=== PATIENT | female | born 1950 | race Caucasian/White ===

== ENCOUNTER 2016-08-29 19:52 | Inpatient (IN) ==
[2016-08-29] MEDS ORDERED: 0.9 % Sodium Chloride 250 ML IV PRN (21:39)
[2016-08-29] MEDS ORDERED: 0.9 % Sodium Chloride 1,000 ML PRIME SCH (21:45)
[2016-08-29] MEDS ORDERED: 0.9 % Sodium Chloride 2,000 ML ONE (22:36)
[2016-08-29 23:23] LABS: Hepatitis B Surface Antigen Nonreactive (Nonreactive)
[2016-08-29 23:25] LABS: Hepatitis B Surface Antibody 23.42 mIU/mL
[2016-08-30] MEDS ORDERED: cloNIDine HCl 0.1 MG TABLET PO PRN (01:11)
[2016-08-30] MEDS ORDERED: Budesonide/Formoterol 160/4.5 MDI IH PRN (01:11)
[2016-08-30] MEDS ORDERED: Naloxone 0.4 MG/ML INJ IVP PRN (01:24)
[2016-08-30] MEDS ORDERED: Haloperidol Lactate 5 MG/ML VIAL IVP PRN (01:24)
[2016-08-30] MEDS ORDERED: Albuterol 2.5 MG/3 ML NEBULIZER IH PRN (01:24)
--- NOTE | 2016-08-30 01:37 | Internal Med History&Physical ---
Date of Encounter: 08/30/16 Time of Encounter: 02:00 Assessment and Plan (1) Hyperkalemia, diminished renal excretion Status: Acute . (2) Hallucinations, unspecified Status: Acute . (3) Intractable nausea and vomiting Status: Acute . Qualifiers: Vomiting type: cyclical vomiting Qualified Code(s): G43.A1 - Cyclical vomiting, intractable (4) H/O noncompliance with medical treatment, presenting hazards to health Status: Acute . (5) Accelerated hypertension Status: Acute . (6) Altered mental status Status: Acute . Qualifiers: Altered mental status type: transient alteration of awareness Qualified Code(s): R40.4 - Transient alteration of awareness (7) CAD (coronary artery disease) Status: Chronic . Qualifiers: Coronary Disease-Associated Artery/Lesion type: bypass graft [place] vs. transplanted heart: [place] heart Associated angina: with unspecified angina Qualified Code(s): I25.709 - Atherosclerosis of coronary artery bypass graft(s) , unspecified, with unspecified angina pectoris (8) CHF (congestive heart failure) Status: Chronic . Qualifiers: Congestive heart failure type: unspecified congestive heart failure type Congestive heart failure chronicity: unspecified congestive heart failure chronicity Qualified Code(s): I50.9 - Heart failure, unspecified (9) COPD (chronic obstructive pulmonary disease) Status: Chronic . Qualifiers: COPD type: emphysema Emphysema type: unspecified Qualified Code(s): J43.9 - Emphysema, unspecified (10) Depression with anxiety Status: Chronic . (11) Hypertension Status: Chronic . Qualifiers: Hypertension type: essential hypertension Qualified Code(s): I10 - Essential (primary) hypertension (12) Hypothyroidism Status: Chronic . Qualifiers: Hypothyroidism type: unspecified Qualified Code(s): E03.9 - Hypothyroidism , unspecified (13) Acute exacerbation of chronic obstructive pulmonary disease (COPD) Status: Acute . (14) Acute on chronic respiratory failure with hypoxia Status: Acute . (15) Age-related physical debility Status: Chronic . (16) Delirium due to general medical condition Status: Acute . (17) HCAP (healthcare-associated pneumonia) Status: Acute . (18) Sepsis Status: Acute . Qualifiers: Sepsis type: sepsis due to unspecified organism Qualified Code(s): A41.9 - Sepsis, unspecified organism (19) Systemic inflammatory response syndrome Status: Acute . (20) Thrombocytopenia Status: Acute . (21) Toxic metabolic encephalopathy Status: Acute . (22) Anemia in chronic kidney disease Status: Chronic . (23) ESRD (end stage renal disease) on dialysis Status: Chronic . (24) Nicotine dependence with nicotine-induced disorder Status: Chronic . Qualifiers: Nicotine product type: cigarettes Qualified Code(s): F17.219 - Nicotine dependence, cigarettes, with unspecified nicotine-induced disorders (25) Obesity (BMI 30.0-34.9) Status: Chronic . (26) Protein-calorie malnutrition, severe Status: Chronic . Internal Medicine - H&P: HPI Chief complaint: Altered mental status Admitted From: Hospital to Hospital Transfer (He will transfer from [facility] emergency department) Plans for Post Hospital Care: Home History of present illness: Ms. Orellana is a 66 year old female with significant history for end-stage renal disease hemodialysis dependent (Monday), CAD/three-vessel CABG/ AMI, CHF unspecified, COPD/asthma, PAD/aortic aneurysm, chronic respiratory failure home oxygen dependent, hypertension, dyslipidemia, osteoarthritis, osteoporosis, GERD, hypothyroidism, venostasis, depression and anxiety, obesity , nicotine dependency. The patient was visited and interviewed and examined. Patient presented mildly encephalopathic at the time of her presentation and was a unreliable historian of circumstances of the events. Details were discussed collected EMS triage information and family. Patient is admitted to [facility] as a hospital transfer from [facility] ED. with complaints of intractable nausea vomiting and diarrhea. This is complicated with feeling of generalized weakness and malaise which curtailed her ability to complete her normal activities of daily living independently. Pruritus symptoms were worse on the day of prior to presentation. As a consequence she did not attend her last two scheduled dialysis days. Initiated by family to have presented an alteration in her mental status with some reported hallucinations in the home setting. This led family members to call EMS services to transfer her to the emergency department for evaluation. She reported that primarily generalized pain and episodes of intermittent chest pain. These have been experience over a 3 to four-day period of time. She has not noted any fevers chills sweats. Has not noted a cough of airway shortness of air or sputum production. She denied any abdominal pain nausea vomiting diarrhea. Denies any bleeding and hemoptysis hematemesis melena bright red blood per rectum hematuria. Still makes a small amount of urine eyes any abnormalities there. Denies any peripheral edema paresthesias weakness or increased swelling. Denies headache visual disturbances or impairment of swallowing. The visual hallucination was that of a " large bunny rabbit". She described it as attempting to eat her pulse ox devise from the EMS staff while they were transporting her to the ED. Denied similar visions while in the ED. Findings in the ED: Temperature 97.9 pulse 69 respirations 18-20 blood pressure 186-193/78-100 O2 saturation 95-99% room air. WBC 10.2 hemoglobin 11.8 platelets 103,000. MCV 103. Differential shows an increase in neutrophils. PT 12.5 INR 1.2 PTT 35.5. Metabolic panel showed a potassium 7.1. BUN 42 creatinine 7.64 GFR 5. Glucose 125 osmolality 304. Hepatic function normal. Albumin 3.3 total 7.2. Troponin 0.03. CT of the head without contrast showed no acute intracranial abnormality. Chest x-ray demonstrated no acute or active cardiopulmonary process. Cardiomegaly with mild interstitial edema pattern with left basilar airspace disease and small left effusion noted. EKG noted sinus rhythm 69 bpm with no acute ischemic changes nonspecific ST wave changes. Preliminary impressions suggest acute /chronic toxic metabolic encephalopathy with delirium as a consequence of patient noncompliance with scheduled hemodialysis. Presence of Significant Azotemia/Uremia As Well As Potential for Adverse Drug Drug Metabolite Interactions during this period off dialysis contributes to the toxic metabolic status patient experienced. Associated Symptoms of acute gastroenteritis contributed to the significant dehydration and electrolyte deficits. Systemic inflammatory response syndrome criteria and sepsis criteria present at admission. Examination and radiographic findings suggestive of acute exacerbation of chronic obstructive pulmonary disease with healthcare associated pneumonic infiltrate/pneumonia/parapneumonic effusion. The patient presents further risk for further acute clinical decline and morbidity given her significant associated comorbidities in the setting of significant acute illness. Workup and treatment will proceed comprehensively. Cumulative laboratory and radiographic data base was reviewed, considered and discussed. Pertinent ancillary medical records including ECW and PCI documentation was reviewed and considered. Given the patient's presenting concerns, past medical history, clinical findings and symptoms, she is admitted at this time will undergo further evaluation and disposition. Orders were written as per the computerized physician order picker/assembler system.......................................................................... .................... Consultative opinions will be sought as clinical circumstances justify. Initial consultation has been requested of dialysis services/nephrology Pain management needs will be addressed. Laboratory and radiographic data base will be updated as appropriate. Studies include: cultures blood and urine and sputum, c diff toxin, prolactin, CPK, cardiac injury panel, BNP, PT/INR, APTT, metabolic and hematologic panel, magnesium, phosphorus, ionized calcium, thyroid panel, lipid profile, A1c, C- peptide, CRP, sedimentation rate, respiratory infection profile, respiratory virus panel, UDS UA, Legionella and Streptococcal pneumoniae urine antigen, ammonia, blood gas, lactic acid, serologies, etc. Precautions: Aspiration, fall, seizure, delirium protocol/surveillance initiated. Telemetry with continuous hemodynamic monitoring and pulse oximetry initiated. Urgent intervention: Hemo-Dialysis Urgent intervention:IV D50+ivreg Insuin. iv bicarbonate drip. iv calcium gluconate. kayexalate+lactulose. Empiric antibiotic coverage: Intravenous vancomycin, Zosyn and Levaquin pending culture data. Special studies: CT head, CT Chest, chest x-ray, telemetry, EKG. Pulmonary toilet: Incentive spirometry, aerosol bronchodilator, mucolytic, antitussive, supplemental oxygen. Corticosteroid therapy. CPAP/BiPAP supplemental oxygen delivery. Aerosol Mucomyst therapy may be employed. Fluid and electrolyte repletion efforts will proceed. Careful attention to fluid balance and renal recovery will be emphasized. Avoidance of nephrotoxic exposure and adverse drug drug interaction in the setting of impaired renal function will be monitored closely. Correction of metabolic and acid base deficits will be emphasized Acute coronary syndrome protocol/surveillance initiated. DVT and PUD prophylaxis initiated: PPI therapy, intermittent pneumatic cuffs/ TEDs. SQ heparin. Early ambulation will be encouraged. Immunization updates recommended. Influenza and pneumococcal vaccinations as part of ongoing preventative healthcare recommendations strongly recommended. Smoking cessation counseling briefly addressed. Patient accepts nicotine substitution with this admission.. Advanced care directive discussion briefly addressed. Patient does not declare any healthcare restrictions at this time. Cardiovascular risk appraisal and cardiovascular risk reduction efforts will be emphasized. Physical and occupational therapy may be consulted to assess patient's functional capacity and progress mobility if circumstances warrant. Outpatient medication schedules will be reviewed, confirmed and facilitated as appropriate. Reconciliation of home treatments including adjustments, substitutions and reintroduction into the treatment regimen will address necessary maintenance therapies for chronic pre-existing medical conditions. Plan of care has been reviewed and discussed in detail with the patient. Questions addressed. Hospital course will depend upon clinical findings, treatment response and potential consultative interventions. Patient is at risk for further acute clinical decline and morbidity due to the presenting chief complaints, findings and comorbid conditions. Condition is serious. Prognosis is cautiously optimistic. CODE STATUS is full. Past Med Surg Social Fam HX - Past Medical History Source: old records reviewed Medical history: aortic aneurysm, arthritis, asthma, CHF, COPD, coronary artery disease, dialysis, GERD, hyperlipidemia, hypertension, myocardial infarction, osteoporosis, peripheral artery disease, renal disease, thyroid disease, venous stasis, other Psychiatric history: anxiety, depression - Past Surgical History Surgical History: coronary bypass (CABG), other, vascular surgery (Vascular left arm. Renal stents.) - Social History Smoking Status: Current every day smoker Packs per day: 0.5-1 pack a day Smokeless Tobacco Status: No Alcohol use: none Drug use: none Occupational status: retired, disabled Current living situation: With Family Activity Level: Independent ambulation, Mostly sedentary Recent Out of Country Travel Within the Last 8 Weeks: No Exposure or Possible Exposure to Illness During Travel: No - Family History Brother Family Member Ethnicity: Unknown Hx Family Cardiac Disorders: Yes (one brother passed sudden heart attack) Mother Living Status: Hx Family Cancer: Yes (lung cancer) Father Living Status: Hx Family Cancer: Yes (lung cancer) Internal Medicine - H&P: Meds Albuterol Sulfate [Albuterol Inhaler] 2 puff IH Q4H PRN 06/02/15 [History] Atorvastatin [Lipitor] 40 mg PO DAILY 06/02/15 [History] Citalopram Hydrobromide [Citalopram HBr] 20 mg PO QAM 06/02/15 [History] Levothyroxine [Synthroid] 200 mcg PO QAM 06/02/15 [History] Losartan Potassium 50 mg PO QAM 06/02/15 [History] Metoprolol Tartrate 25 mg PO BID 06/02/15 [History] Omeprazole 40 mg PO QAM 06/02/15 [History] Oxycodone HCl 10 mg PO Q6H PRN 06/02/15 [History] Aspirin 81 mg PO DAILY 09/22/15 [History] Docusate [Colace] 100 mg PO BID PRN 09/22/15 [History] B Complex with Vitamin C [[place]ee with C] 1 each PO DAILY 02/22/16 [History] Budesonide/Formoterol 160/4.5 [Symbicort 160/4.5] 1 puff IH QID PRN 08/29/16 [ History] CloNIDine HCl 0.1 mg PO DAILY PRN 08/29/16 [History] Sevelamer [Renvela] 800 mg PO TIDWM 08/29/16 [History] Nicotine Patch [Nicoderm] 21 mg TD DAILY patch.td24 08/31/16 [Rx] Allergies No Known Allergies Allergy (Verified 08/30/16 14:33) ROS unobtainable: due to mental status All Systems PM: A 10-system review of systems was performed and is negative for pertinent findings except as documented above in the HPI. Encephalopathic. Delirious. Unreliable historian of circumstances and events. - Constitutional Constitutional: as per HPI - EENT Eyes: as per HPI Ears: as per HPI Nose, mouth and throat: as per HPI - Cardiovascular Cardiovascular ROS IM: as per HPI - Respiratory Respiratory: as per HPI - Gastrointestinal Gastrointestinal: as per HPI - Genitourinary Genitourinary: as per HPI Menstruation: as per HPI - Musculoskeletal Musculoskeletal ROS IM: as per HPI - Integumentary Integumentary IM: as per HPI - Neurological Neurological ROS: as per HPI - Psychiatric Psychiatric: as per HPI - Endocrine Endocrine IM: as per HPI - Hematologic/Lymphatic Hematologic/Lymphatic: as per HPI - Allergic/Immunologic Allergic/Immunologic: as per HPI - Constitutional Vitals: Temp Pulse Resp BP Pulse Ox 99.4 F 87 18 178/75 97 08/30/16 01:14 08/30/16 01:14 08/30/16 01:14 08/30/16 01:14 08/30/16 01:14 General appearance: Present: A&O X 2, mild distress, obese. Absent: answers questions appropriately - Head Head exam: Present: atraumatic, normocephalic - Eye Eye exam: Present: EOMI, PERRL, conjuntiva pink, sclera anicteric Pupils: Present: normal accommodation, PERRL - ENT ENT exam: Present: mucous membranes dry, normal oropharynx - Neck Neck exam general surgery: Present: full ROM, supple, trachea midline. Absent: lymphadenopathy, tenderness, nuchal rigidity - Respiratory Respiratory exam: Present: chest wall tenderness, decreased breath sounds, rhonchi. Absent: accessory muscle use, rales, wheezes - Cardiovascular Cardiovascular exam: Present: distant heart sounds, RRR, +S1, +S2. Absent: diastolic murmur, gallop, rubs, systolic murmur - GI/Abdominal GI/Abdominal exam: Present: normal bowel sounds, soft, no peritoneal signs. Absent: distended, tenderness - Extremities Exam Extremities exam: Present: full ROM, warm, radial pulses palpable and symetrical. Absent: calf tenderness, cyanotic, pedal edema - Neurological Exam Neurological exam: Present: alert, altered, CN II-XII intact, oriented X3, no focal deficits. Absent: pronater drift, facial droop, speech deficit - Expanded Neurological Exam Neurological exam expanded: Present: ataxia, inattentive, protecting the airway. Absent: expressive aphasia, receptive aphasia Patient oriented to: Present: person, place. Absent: time Speech: Present: garbled Coma Scale Eye Opening: To Voice Coma Scale Motor Response: Localizes to Pain Coma Scale Verbal Response: Inappropriate Coma Scale Total: 11 - Psychiatric Psychiatric exam: Present: flat affect - Skin Skin exam: Present: dry, intact, warm. Absent: petechiae, rash, urticaria, vesicles Internal Med - H&P Results - Labs CBC & Chem 7: 08/31/16 05:27 08/31/16 05:27 - Impressions Vital Signs Temp Pulse Resp BP Pulse Ox 08/30/16 01:14 99.4 F 87 18 178/75 97 08/30/16 00:05 97.7 F 18 142/79 08/29/16 23:50 137/77 08/29/16 23:35 143/83 08/29/16 23:20 150/64 08/29/16 23:05 148/78 08/29/16 22:50 159/85 08/29/16 22:35 163/82 08/29/16 22:20 166/91 08/29/16 22:05 97.7 F 18 177/81 08/29/16 21:21 97.7 F 90 18 184/71 98 Intake and Output 08/29/16 08/29/16 08/30/16 15:59 23:59 07:59 Intake Total 600 / 600 Output Total 2600 / 2600 Balance 600 / 600 -2600 / -2600 Intake: Oral 0 / 0 Intake, Rinseback and 600 / 600 Flushes Output: Total Dialysis Output 2600 / 2600 Other: Weight 76.6 kg Hemodialysis Net Fluid 2284 2600 Removed (mL) Allergies Allergy/AdvReac Type Severity Reaction Status Date / Time No Known Allergies Allergy Verified 04/07/15 14:11 Abnormal lab results RBC 3.30 M/mcL (3.82-4.97) L 08/31/16 05:27 Hgb 10.2 g/dL (11.5-15.4) L 08/31/16 05:27 Hct 32.9 % (35.3-44.9) L 08/31/16 05:27 MCHC 31.0 g/dL (31.6-35.5) L 08/31/16 05:27 Plt Count 108 K/mcL (140-400) L 08/31/16 05:27 MPV 9.2 fL (9.4-12.4) L 08/31/16 05:27 VBG pCO2 55 mmHg (41-51) H 08/30/16 05:10 VBG pO2 53 mmHg (25-40) H 08/30/16 05:10 VBG HCO3 35.7 mEq/L (21-27) H 08/30/16 05:10 BUN 38 mg/dL (7-20) H D 08/31/16 05:27 Creatinine 6.30 mg/dL (0.57-1.11) H 08/31/16 05:27 Est GFR ( Amer) 8 (> 60) L 08/31/16 05:27 Est GFR (Non-Af Amer) 7 (> 60) L 08/31/16 05:27 Glucose 102 mg/dL (70-99) H 08/31/16 05:27 Calculated Osmolality 303 (280-300) H 08/31/16 05:27 Ionized Calcium 1.11 mmol/L (1.15-1.35) L 08/30/16 05:10 Magnesium 1.5 mg/dL (1.6-2.6) L 08/30/16 05:10 Troponin I 0.08 ng/mL (0-0.03) H* 08/31/16 05:27 C-Reactive Protein 66 mg/L (Less than 5) H 08/30/16 05:10 Serum Total Protein 5.9 g/dL (6.0-8.3) L 08/31/16 05:27 Albumin 2.6 g/dL (3.5-5.0) L 08/31/16 05:27 Albumin/Globulin Ratio 0.8 (1.1-2.2) L 08/31/16 05:27 TSH 0.080 mcIU/mL (0.350-4.840) L 08/30/16 05:10 Urine pH 8.5 pH Units (5.0-8.0) H 08/30/16 21:40 Urine Protein 100 mg/dL (Neg-Trace) H 08/30/16 21:40 Urine Blood Moderate (Negative) H 08/30/16 21:40 Urine Microscopic RBC 30-50 per hpf (0-3) H 08/30/16 21:40 Urine Microscopic WBC 5-15 per hpf (0-3) H 08/30/16 21:40 Ur Squamous Epith Cells Many per lpf (None-Few) H 08/30/16 21:40 Ur Culture Indicated? YES (NO) A 08/30/16 21:40 Laboratory Results WBC 7.7 K/mcL (4.3-11.1) 08/31/16 05:27 RBC 3.30 M/mcL (3.82-4.97) L 08/31/16 05:27 Hgb 10.2 g/dL (11.5-15.4) L 08/31/16 05:27 Hct 32.9 % (35.3-44.9) L 08/31/16 05:27 MCV 99.7 fL (83.0-100.0) 08/31/16 05:27 MCH 30.9 pg (28.0-33.3) 08/31/16 05:27 MCHC 31.0 g/dL (31.6-35.5) L 08/31/16 05:27 RDW 13.6 % (11.5-14.5) 08/31/16 05:27 Plt Count 108 K/mcL (140-400) L 08/31/16 05:27 MPV 9.2 fL (9.4-12.4) L 08/31/16 05:27 Immature Gran % 0.5 % (0-4) 08/31/16 05:27 Seg Neutrophils % 77.7 % 08/31/16 05:27 Lymphocytes % 12.7 % 08/31/16 05:27 Monocytes % 8.2 % 08/31/16 05:27 Eosinophils % 0.8 % 08/31/16 05:27 Basophils % 0.1 % 08/31/16 05:27 Neutrophils # 6.0 K/mcL (1.6-8.9) 08/31/16 05:27 Lymphocytes # 1.0 K/mcL (0.6-4.6) 08/31/16 05:27 Monocytes # 0.6 K/mcL (0.0-1.3) 08/31/16 05:27 Eosinophils # 0.1 K/mcL (0.0-0.6) 08/31/16 05:27 Basophils # 0.0 K/mcL (0.0-0.2) 08/31/16 05:27 Immature Plt Fraction 1.7 % (1.1-6.1) 08/31/16 05:27 VBG pH 7.42 pH Units (7.32-7.42) 08/30/16 05:10 VBG pCO2 55 mmHg (41-51) H 08/30/16 05:10 VBG pO2 53 mmHg (25-40) H 08/30/16 05:10 VBG HCO3 35.7 mEq/L (21-27) H 08/30/16 05:10 Sodium 142 mEq/L (136-145) 08/31/16 05:27 Potassium 4.1 mEq/L (3.5-4.5) 08/31/16 05:27 Chloride 99 mEq/L (98-109) 08/31/16 05:27 Carbon Dioxide 29 mEq/L (19-29) 08/31/16 05:27 BUN 38 mg/dL (7-20) H D 08/31/16 05:27 Creatinine 6.30 mg/dL (0.57-1.11) H 08/31/16 05:27 Est GFR ( Amer) 8 (> 60) L 08/31/16 05:27 Est GFR (Non-Af Amer) 7 (> 60) L 08/31/16 05:27 BUN/Creatinine Ratio 6 (6-26) 08/31/16 05:27 Glucose 102 mg/dL (70-99) H 08/31/16 05:27 Calculated Osmolality 303 (280-300) H 08/31/16 05:27 Calcium 9.1 mg/dL (8.6-10.8) 08/31/16 05:27 Ionized Calcium 1.11 mmol/L (1.15-1.35) L 08/30/16 05:10 Magnesium 1.5 mg/dL (1.6-2.6) L 08/30/16 05:10 Total Bilirubin 0.7 mg/dL (0.2-1.2) 08/31/16 05:27 AST 16 Units/L (5-34) 08/31/16 05:27 ALT < 6 Units/L (0-55) 08/31/16 05:27 Alkaline Phosphatase 70 Units/L (38-126) 08/31/16 05:27 Ammonia 18 mcmol/L (18-72) 08/30/16 05:10 Troponin I 0.08 ng/mL (0-0.03) H* 08/31/16 05:27 C-Reactive Protein 66 mg/L (Less than 5) H 08/30/16 05:10 Serum Total Protein 5.9 g/dL (6.0-8.3) L 08/31/16 05:27 Albumin 2.6 g/dL (3.5-5.0) L 08/31/16 05:27 Globulin 3.3 g/dL (2.4-3.5) 08/31/16 05:27 Albumin/Globulin Ratio 0.8 (1.1-2.2) L 08/31/16 05:27 TSH 0.080 mcIU/mL (0.350-4.840) L 08/30/16 05:10 Urine Color Yellow (Yellow) 08/30/16 21:40 Urine Clarity Clear (Clear) 08/30/16 21:40 Urine pH 8.5 pH Units (5.0-8.0) H 08/30/16 21:40 Ur Specific [place] 1.020 (1.010-1.025) 08/30/16 21:40 Urine Protein 100 mg/dL (Neg-Trace) H 08/30/16 21:40 Urine Glucose (UA) Normal mg/dL (Normal) 08/30/16 21:40 Urine Ketones Negative mg/dL (Negative) 08/30/16 21:40 Urine Blood Moderate (Negative) H 08/30/16 21:40 Urine Nitrite Negative (Negative) 08/30/16 21:40 Urine Bilirubin Negative (Negative) 08/30/16 21:40 Urine Urobilinogen Normal mg/dL (Normal) 08/30/16 21:40 Ur Leukocyte Esterase Negative (Negative) 08/30/16 21:40 Urine Microscopic RBC 30-50 per hpf (0-3) H 08/30/16 21:40 Urine Microscopic WBC 5-15 per hpf (0-3) H 08/30/16 21:40 Ur Squamous Epith Cells Many per lpf (None-Few) H 08/30/16 21:40 Urine Bacteria Few per hpf (None-Few) 08/30/16 21:40 Hyaline Casts None Seen per lpf (None-Few) 08/30/16 21:40 Ur Culture Indicated? YES (NO) A 08/30/16 21:40 Ethyl Alcohol < 10 mg/dL (0-10) 08/30/16 05:10 Hep Bs Antigen Nonreactive (Nonreactive) 08/29/16 22:15 Hep Bs Antibody 23.42 mIU/mL 08/29/16 22:15
[2016-08-30] MEDS ORDERED: Acetaminophen 325 MG TABLET PO PRN (02:10)
[2016-08-30] MEDS ORDERED: *HR* OxyCODONE Immed Rel 5 MG TABLET PO PRN (02:10)
[2016-08-30] MEDS ORDERED: *HR* Morphine 2 MG/ML SYRINGE IVP PRN (02:10)
[2016-08-30] MEDS ORDERED: Ondansetron 4 MG/2 ML VIAL IVP PRN (02:10)
[2016-08-30] MEDS: *HR* LORazepam 2 MG/ML VIAL IVP SCH ×3 (03:02→12:29)
[2016-08-30] MEDS: Ipratropium/Albuterol Neb 3 ML IH SCH ×2 (04:27→10:15)
[2016-08-30 05:20] LABS: Basophils % 0.1 %; Hematocrit 33.7 % (35.3-44.9); Hemoglobin 10.7 g/dL (11.5-15.4); Lymphocytes # 0.5 K/mcL (0.6-4.6); Mean Corpuscular HGB Conc 31.8 g/dL (31.6-35.5); Mean Corpuscular Hemoglobin 31.3 pg (28.0-33.3); Mean Corpuscular Volume 98.5 fL (83.0-100.0); Mean Platelet Volume 9.2 fL (9.4-12.4); Monocytes # 0.5 K/mcL (0.0-1.3); Monocytes % 5.4 %; Neutrophils # 8.5 K/mcL (1.6-8.9); Red Blood Count 3.42 M/mcL (3.82-4.97); Red Cell Distribution Width 13.8 % (11.5-14.5); Segmented Neutrophils % 88.5 %; VBG HCO3 35.7 mEq/L (21-27); VBG PH 7.42 pH Units (7.32-7.42)
[2016-08-30 05:21] LABS: Platelet Count 94 K/mcL (140-400)
[2016-08-30 05:27] LABS: Ionized Calcium 1.11 mmol/L (1.15-1.35)
[2016-08-30 05:37] LABS: Alanine Aminotransferase < 6 Units/L (0-55); Albumin 3.1 g/dL (3.5-5.0); Albumin/Globulin Ratio 0.9 (1.1-2.2); Alkaline Phosphatase 82 Units/L (38-126); Aspartate Amino Transferase 13 Units/L (5-34); BUN/Creatinine Ratio 4 (6-26); Bilirubin,Total 0.7 mg/dL (0.2-1.2); Blood Urea Nitrogen 22 mg/dL (7-20); Calcium 9.5 mg/dL (8.6-10.8); Carbon Dioxide 31 mEq/L (19-29); Chloride 99 mEq/L (98-109); Ethanol < 10 mg/dL (0-10); Globulin 3.6 g/dL (2.4-3.5); Glucose 122 mg/dL (70-99); Magnesium 1.5 mg/dL (1.6-2.6); Osmolality,Calculated 299 (280-300); Potassium 3.7 mEq/L (3.5-4.5); Sodium 142 mEq/L (136-145); Total Protein 6.7 g/dL (6.0-8.3); eGFR For African Americans 10 (> 60); eGFR For Non-African Americans 9 (> 60)
[2016-08-30 05:44] LABS: C-Reactive Protein 66 mg/L (Less than 5)
[2016-08-30] MEDS: *HR* Heparin 5,000 UNIT/ML VIAL SQ SCH ×2 (06:42→17:16)
[2016-08-30] MEDS: Folic Acid 1 MG TABLET PO SCH (08:06)
[2016-08-30] MEDS: Thiamine (B-1) 100 MG TABLET PO SCH (08:07)
[2016-08-30] MEDS: Aspirin 81 MG TAB.CHEW PO SCH (08:07)
[2016-08-30] MEDS: Nicotine 21 MG PATCH.TD24 TD SCH (08:07)
[2016-08-30] MEDS: Vitamin B Complex/Vit C/Vit E 1 EACH TABLET PO SCH (08:22)
--- NOTE | 2016-08-30 08:22 | Nephrology Consult Note ---
Date of Encounter: 08/30/16 Time of Encounter: 08:20 Assessment and Plan (1) End stage renal disease Current Visit: No Status: Acute Patient has end-stage renal disease. She presented with hyperkalemia and poorly controlled blood pressure. Patient missed her last 2 dialysis sessions. Patient underwent urgent dialysis last night. Her hyperkalemia is improved. She has no signs of volume overload. Next dialysis will be tomorrow. Blood pressure remains elevated. We will make some adjustments in her antihypertensive medications. (2) Benign hypertensive kidney disease with end stage renal disease Current Visit: Yes Status: Acute (3) Nausea & vomiting Current Visit: Yes Status: Acute Qualifiers: Vomiting type: unspecified Vomiting Intractability: unspecified Qualified Code(s): R11.2 - Nausea with vomiting, unspecified (4) Hyperkalemia Current Visit: No Status: Acute History of Present Illness - History of Present Illness This is a 66-year-old female with end-stage renal disease who dialyzes every Monday. Patient reports that she had nausea and vomiting for several days and was not feeling well. She did not attend dialysis on Monday or again yesterday. She says she has been having a lot of nausea and vomiting and her blood pressures been elevated. She thinks she has not been able to keep down her blood pressure medications. Emergency room records indicate that the patient also was complaining of weakness as well as some hallucinations. Currently the patient is still complaining of nausea and some abdominal discomfort. Her blood pressure remains poorly controlled. Patient presented with potassium of 7.1 tympanic emergency room last evening. She was treated medically and also underwent urgent dialysis when she arrived at [place] last night. Potassium today is down to 3.7. She does not exhibit any signs of volume overload currently. Blood pressure is 190/84. Patient denies any worsening shortness of breath. She denies any chest pain. Past Med Surg Social Fam HX - Past Medical History Medical history: aortic aneurysm, arthritis, asthma, CHF, COPD, coronary artery disease, dialysis, GERD, hyperlipidemia, hypertension, myocardial infarction, osteoporosis, peripheral artery disease, renal disease, thyroid disease, venous stasis, other Psychiatric history: anxiety, depression - Past Surgical History Surgical History: coronary bypass (CABG), other - Social History Smoking Status: Current every day smoker Packs per day: 0.5-1 pack a day Smokeless Tobacco Status: No Alcohol use: none Drug use: none - Family History Brother Family Member Ethnicity: Unknown Hx Family Cardiac Disorders: Yes (one brother passed sudden heart attack) Mother Living Status: Hx Family Cancer: Yes (lung cancer) Father Living Status: Hx Family Cancer: Yes (lung cancer) Medications and Allergies Albuterol Sulfate [Albuterol Inhaler] 2 puff IH Q4H PRN 06/02/15 [History] Atorvastatin [Lipitor] 40 mg PO DAILY 06/02/15 [History] Citalopram Hydrobromide [Citalopram HBr] 20 mg PO QAM 06/02/15 [History] Levothyroxine [Synthroid] 200 mcg PO QAM 06/02/15 [History] Losartan Potassium 50 mg PO QAM 06/02/15 [History] Metoprolol Tartrate 25 mg PO BID 06/02/15 [History] Omeprazole 40 mg PO QAM 06/02/15 [History] Oxycodone HCl 10 mg PO Q6H PRN 06/02/15 [History] Aspirin 81 mg PO DAILY 09/22/15 [History] Docusate [Colace] 100 mg PO BID PRN 09/22/15 [History] B Complex with Vitamin C [[place] with C] 1 each PO DAILY 02/22/16 [History] Budesonide/Formoterol 160/4.5 [Symbicort 160/4.5] 1 puff IH QID PRN 08/29/16 [ History] CloNIDine HCl 0.1 mg PO DAILY PRN 08/29/16 [History] Sevelamer [Renvela] 800 mg PO TIDWM 08/29/16 [History] Allergies No Known Allergies Allergy (Verified 04/07/15 14:11) Review of Systems Constitutional: as per HPI, weakness Nose, mouth and throat: no dizziness, no headache(s) Cardiovascular: as per HPI, dyspnea on exertion Respiratory: as per HPI, cough, dyspnea on exertion Gastrointestinal: abdominal pain, nausea, vomiting Musculoskeletal: no muscle weakness, no numbness Integumentary: no hirsutism, no striae Neurological: as per HPI, weakness Psychiatric: no depression, no difficulty concentrating Endocrine: as per HPI Hematologic/Lymphatic: no easy bruising, no lymphadenopathy Exam - Vital Signs Vital signs: Initial Vital Signs Temp Pulse Resp BP Pulse Ox 97.7 F 90 18 184/71 98 08/29/16 21:21 08/29/16 21:21 08/29/16 21:21 08/29/16 21:21 08/29/16 21:21 Vital Signs - Last 8 Hours Temp Pulse Resp BP Pulse Ox 08/30/16 07:45 99.3 F 90 17 190/84 94 L 08/30/16 05:37 98.4 F 83 16 185/78 93 L 08/30/16 04:28 16 91 L 08/30/16 02:45 96 08/30/16 01:14 99.4 F 87 18 178/75 97 Intake and Output 08/29/16 08/30/16 08/30/16 23:59 07:59 15:59 Intake Total 600 / 600 Output Total 2600 / 2600 Balance 600 / 600 -2600 / -2600 Intake: Oral 0 / 0 Intake, Rinseback and 600 / 600 Flushes Output: Total Dialysis Output 2600 / 2600 Other: Stool Size Moderate Stool Consistency liquid Stool Characteristics Foamy Stool Color Brown Weight 76.6 kg Hemodialysis Net Fluid 2284 2600 Removed (mL) - General Appearance Exam: Patient appears to be resting comfortably. She awakens easily and answers a few questions and then drifts back off to sleep. She is in no acute distress. Neck supple. Lungs sounds otherwise clear. Heart regular rhythm with a 2/6 soft ejection murmur. Abdomen shows normal bowel sounds. There is some diffuse tenderness is no guarding or rigidity. Lower extremities show no peripheral edema. There is a functioning AV fistula in the left upper extremity. Results - Lab Results 08/30/16 05:10 08/30/16 05:10 Most recent lab results Calcium 9.5 mg/dL (8.6-10.8) 08/30/16 05:10 Magnesium 1.5 mg/dL (1.6-2.6) L 08/30/16 05:10 Consult Discharge Plan - Plan Referrals: Yonatan Aleman DO [Primary Care Provider] -
[2016-08-30] MEDS: cloNIDine HCl 0.1 MG TABLET PO SCH ×2 (10:04→20:20)
[2016-08-30] MEDS ORDERED: Magnesium Oxide 400 MG TABLET PO ONE (12:51)
[2016-08-30] MEDS ORDERED: *HR* LORazepam 2 MG/ML VIAL IVP PRN (12:52)
--- NOTE | 2016-08-30 17:36 | Internal Med Progress Note ---
Date of Encounter: 08/30/16 Time of Encounter: 11:55 - Assessment and plan (1) Benign hypertensive kidney disease with end stage renal disease Current Visit: Yes Status: Acute Assessment and plan: Renal input appreciated, will follow recommendations (2) Altered mental status Current Visit: Yes Status: Acute Qualifiers: Altered mental status type: transient alteration of awareness Qualified Code(s): R40.4 - Transient alteration of awareness (3) Anemia in chronic kidney disease Current Visit: No Status: Chronic (4) CHF (congestive heart failure) Current Visit: Yes Status: Chronic Qualifiers: Congestive heart failure type: unspecified congestive heart failure type Congestive heart failure chronicity: unspecified congestive heart failure chronicity Qualified Code(s): I50.9 - Heart failure, unspecified (5) End stage renal disease Current Visit: Yes Status: Chronic (6) Hyperkalemia Current Visit: Yes Status: Acute Assessment and plan: Resolved s/p HD, improved (7) CAD (coronary artery disease) Current Visit: Yes Status: Chronic Qualifiers: Coronary Disease-Associated Artery/Lesion type: bypass graft [place] vs. transplanted heart: [place] heart Associated angina: with unspecified angina Qualified Code(s): I25.709 - Atherosclerosis of coronary artery bypass graft(s) , unspecified, with unspecified angina pectoris (8) COPD (chronic obstructive pulmonary disease) Current Visit: Yes Status: Chronic Qualifiers: COPD type: emphysema Emphysema type: unspecified Qualified Code(s): J43.9 - Emphysema, unspecified (9) Current smoker Current Visit: Yes Status: Chronic (10) Depression with anxiety Current Visit: Yes Status: Chronic (11) Hypertension Current Visit: Yes Status: Chronic Assessment and plan: Resume home meds Qualifiers: Hypertension type: essential hypertension Qualified Code(s): I10 - Essential (primary) hypertension (12) Hypothyroidism Current Visit: Yes Status: Chronic Assessment and plan: Uncontrolled, TSH is low, will continue home dose of synthroid Qualifiers: Hypothyroidism type: unspecified Qualified Code(s): E03.9 - Hypothyroidism , unspecified (13) Acute encephalopathy Current Visit: Yes Status: Acute Assessment and plan: Metabolic encephalopathy Fall precautions Monitor closely (14) Elevated troponin Current Visit: Yes Status: Acute Assessment and plan: No chest pain, EKG NSR Will trend Will obtain ECHO Will consult cardiology prn - Subjective Interval history: 66 Y/O F with ESRD on HD, CAD , CHF, Chornc respiratory failure on home oxygen, HTN, HLD Patient being managed for acute encephalopathy possibly from uremia and hyperkalemia after she[place] missed 2 HD sessions She is seen at bedside, sleeping deeply but rousable (per chart, she had received Ativan in the early hrs of the morning) She is oriented to place and person and able to speak full sentences but falls asleep intermittently She has received HD Of note, troponin continues to be elavted. Admitting EKG is without ischemic changes and Patient has no chest pain - Constitutional Vitals: Temp Pulse Resp BP Pulse Ox 98.7 F 84 18 142/74 94 L 08/30/16 15:45 08/30/16 15:45 08/30/16 15:45 08/30/16 15:45 08/30/16 15:45 General appearance: Present: A&O X 2, no acute distress - Head Head exam: Present: atraumatic, normocephalic - Eye Eye exam: Present: PERRL, conjuntiva pink, sclera anicteric Pupils: Present: PERRL - Neck Neck exam general surgery: Present: supple, trachea midline. Absent: lymphadenopathy - Cardiovascular Cardiovascular exam: Present: RRR, +S1, +S2. Absent: diastolic murmur, gallop, rubs, systolic murmur - GI/Abdominal GI/Abdominal exam: Present: normal bowel sounds, soft, no peritoneal signs. Absent: distended, tenderness - Extremities Exam Extremities exam: Present: warm, radial pulses palpable and symetrical. Absent : calf tenderness, cyanotic, pedal edema - Neurological Exam Neurological exam: Present: altered, no focal deficits. Absent: pronater drift , facial droop, speech deficit - Skin Skin exam: Present: dry Internal Medicine: Result - Labs CBC & Chem 7: 08/30/16 05:10 08/30/16 05:10 Labs: Short CBC 08/30/16 Range/Units 05:10 WBC 9.6 (4.3-11.1) K/mcL Hgb 10.7 L (11.5-15.4) g/dL Hct 33.7 L (35.3-44.9) % Plt Count 94 L (140-400) K/mcL Neutrophils # 8.5 (1.6-8.9) K/mcL BMP 08/30/16 05:10 Sodium 142 Potassium 3.7 D Chloride 99 Carbon Dioxide 31 H BUN 22 H D Creatinine 5.06 H Glucose 122 H Calcium 9.5 Cardiac Enzymes 08/30/16 08/30/16 08/30/16 Range/Units 05:10 11:04 16:40 Troponin I 0.07 H* 0.08 H* 0.12 H* (0-0.03) ng/mL Liver Function 08/30/16 Range/Units 05:10 Total Bilirubin 0.7 (0.2-1.2) mg/dL AST 13 (5-34) Units/L ALT < 6 (0-55) Units/L Alkaline Phosphatase 82 (38-126) Units/L Albumin 3.1 L (3.5-5.0) g/dL Consult Discharge Plan - Plan Referrals: Yonatan Aleman DO [Primary Care Provider] - 09/06/16 9:30 am ()
[2016-08-30] MEDS: *HR* OxyCODONE Immed Rel 5 MG TABLET PO PRN ×2 (20:21→23:54)
[2016-08-30 21:44] LABS: Bilirubin,Urine Negative (Negative); Blood,Urine Moderate (Negative); Clarity,Urine Clear (Clear); Color,Urine Yellow (Yellow); Glucose,Urine (UA) Normal (Normal); Ketones,Urine Negative (Negative); Leukocyte Esterase,Urine Negative (Negative); Nitrite,Urine Negative (Negative); PH,Urine 8.5 pH Units (5.0-8.0); Protein,Urine 100 mg/dL (Neg-Trace); Urobilinogen,Urine Normal (Normal)
[2016-08-30 21:46] LABS: Bacteria,Urine Few per hpf (None-Few); Hyaline Casts,Urine None Seen per lpf (None-Few); RBC,Urine 30-50 per hpf (0-3); Squamous Epithelial Cell,Urine Many per lpf (None-Few)
[2016-08-30] MEDS: Budesonide/Formoterol 160/4.5 MDI IH SCH (22:44)
[2016-08-31 05:41] LABS: Eosinophils % 0.8 %; Hemoglobin 10.2 g/dL (11.5-15.4); Red Cell Distribution Width 13.6 % (11.5-14.5)
[2016-08-31 05:43] LABS: Eosinophils # 0.1 K/mcL (0.0-0.6)
[2016-08-31 05:44] LABS: Basophils % 0.1 %; Hematocrit 32.9 % (35.3-44.9); Immature Granulocytes % 0.5 % (0-4); Immature Platelets 1.7 % (1.1-6.1); Lymphocytes % 12.7 %; Mean Corpuscular Hemoglobin 30.9 pg (28.0-33.3); Mean Corpuscular Volume 99.7 fL (83.0-100.0); Mean Platelet Volume 9.2 fL (9.4-12.4); Monocytes # 0.6 K/mcL (0.0-1.3); Monocytes % 8.2 %; Platelet Count 108 K/mcL (140-400); Segmented Neutrophils % 77.7 %
[2016-08-31 05:55] LABS: Albumin 2.6 g/dL (3.5-5.0); Albumin/Globulin Ratio 0.8 (1.1-2.2); Alkaline Phosphatase 70 Units/L (38-126); Aspartate Amino Transferase 16 Units/L (5-34); BUN/Creatinine Ratio 6 (6-26); Bilirubin,Total 0.7 mg/dL (0.2-1.2); Calcium 9.1 mg/dL (8.6-10.8); Carbon Dioxide 29 mEq/L (19-29); Chloride 99 mEq/L (98-109); Globulin 3.3 g/dL (2.4-3.5); Glucose 102 mg/dL (70-99); Osmolality,Calculated 303 (280-300); Potassium 4.1 mEq/L (3.5-4.5); Sodium 142 mEq/L (136-145); Total Protein 5.9 g/dL (6.0-8.3); eGFR For African Americans 8 (> 60); eGFR For Non-African Americans 7 (> 60)
[2016-08-31 06:00] LABS: Alanine Aminotransferase < 6 Units/L (0-55); Blood Urea Nitrogen 38 mg/dL (7-20)
[2016-08-31] MEDS ORDERED: 0.9 % Sodium Chloride 250 ML IV PRN (08:08)
--- NOTE | 2016-08-31 08:08 | Nephrology Progress Note ---
Date of Encounter: 08/31/16 Time of Encounter: 08:07 - Assessment and Plan (1) End stage renal disease Current Visit: No Status: Acute Patient will undergo usual dialysis today. Orders of been submitted. We will see how her blood pressure is following dialysis and then decide if we need to make any additional changes in her antihypertensive medications. (2) Benign hypertensive kidney disease with end stage renal disease Current Visit: Yes Status: Acute (3) Nausea & vomiting Current Visit: Yes Status: Acute Qualifiers: Vomiting type: unspecified Vomiting Intractability: unspecified Qualified Code(s): R11.2 - Nausea with vomiting, unspecified (4) Hyperkalemia Current Visit: Yes Status: Acute Subjective Interval history: Patient reports she is feeling better. She denies any nausea or vomiting. She also denies any shortness of breath. Potassium is 4.1. Blood pressure is ranging anywhere from 120-169 systolic 60-73 diastolic. She will undergo her usual dialysis today. Objective - Vital Signs Vital signs: Vital Signs Temp Pulse Resp BP Pulse Ox 08/31/16 07:55 98.4 F 67 16 143/65 98 08/31/16 03:41 97.4 F L 59 16 169/73 97 08/31/16 00:08 97.9 F 64 16 120/60 96 08/30/16 22:45 16 99 08/30/16 20:04 97.4 F L 72 16 162/78 94 L 08/30/16 15:45 98.7 F 84 18 142/74 94 L 08/30/16 11:39 99.7 F H 73 19 102/59 93 L 08/30/16 10:16 18 97 08/30/16 10:00 83 19 197/90 99 08/30/16 08:25 94 L Intake and Output 08/30/16 08/31/16 08/31/16 23:59 07:59 15:59 Intake Total 800 / 800 Output Total 300 / 300 0 / 0 Balance 500 / 500 0 / 0 Intake: Oral 800 / 800 Output: Urine 300 / 300 0 / 0 Other: Weight 71.6 kg Patient Weight 08/31/16 23:59 Weight 71.6 kg - General Appearance Exam: Patient is alert and oriented. She is in no acute distress. Lung sounds otherwise clear. Heart regular rate and rhythm. Abdomen is benign. There is no peripheral edema. There is a functioning fistula in the left arm. - Lab 08/31/16 05:27 08/31/16 05:27 Most recent lab results Calcium 9.1 mg/dL (8.6-10.8) 08/31/16 05:27 Magnesium 1.5 mg/dL (1.6-2.6) L 08/30/16 05:10 Consult Discharge Plan - Plan Referrals: Yonatan Aleman DO [Primary Care Provider] - 09/06/16 9:30 am ()
[2016-08-31] MEDS: Thiamine (B-1) 100 MG TABLET PO SCH (10:18)
[2016-08-31] MEDS: Vitamin B Complex/Vit C/Vit E 1 EACH TABLET PO SCH (10:18)
[2016-08-31] MEDS: Aspirin 81 MG TAB.CHEW PO SCH (10:18)
[2016-08-31] MEDS: Folic Acid 1 MG TABLET PO SCH (10:18)
[2016-08-31] MEDS: Nicotine 21 MG PATCH.TD24 TD SCH (10:19)
[2016-08-31] MEDS: *HR* Heparin 5,000 UNIT/ML VIAL SQ SCH ×2 (10:30→17:39)
[2016-08-31] MEDS: Budesonide/Formoterol 160/4.5 MDI IH SCH (10:40)
[2016-08-31] MEDS ORDERED: *HR* OxyCODONE Immed Rel 5 MG TABLET PO PRN (12:59)
[2016-08-31] MEDS: cloNIDine HCl 0.1 MG TABLET PO SCH (13:19)
[2016-08-31] MEDS ORDERED: 0.9 % Sodium Chloride 2,000 ML ONE (14:36)
[2016-08-31 16:31] VITALS: BP 94/53
--- NOTE | 2016-08-31 16:42 | Discharge Summary ---
Date of Encounter: 08/31/16 Time of Encounter: 13:45 - Discharge Diagnosis (1) Benign hypertensive kidney disease with end stage renal disease Priority: Primary Status: Chronic (2) Altered mental status Priority: Primary Status: Resolved Qualifiers: Altered mental status type: transient alteration of awareness Qualified Code(s): R40.4 - Transient alteration of awareness (3) Anemia in chronic kidney disease Priority: Secondary Status: Chronic (4) CHF (congestive heart failure) Priority: Secondary Status: Chronic Qualifiers: Congestive heart failure type: unspecified congestive heart failure type Congestive heart failure chronicity: unspecified congestive heart failure chronicity Qualified Code(s): I50.9 - Heart failure, unspecified (5) End stage renal disease Priority: Secondary Status: Chronic (6) Hyperkalemia Priority: Primary Status: Resolved (7) CAD (coronary artery disease) Priority: Secondary Status: Chronic Qualifiers: Coronary Disease-Associated Artery/Lesion type: bypass graft [place] vs. transplanted heart: [place] heart Associated angina: with unspecified angina Qualified Code(s): I25.709 - Atherosclerosis of coronary artery bypass graft(s) , unspecified, with unspecified angina pectoris (8) COPD (chronic obstructive pulmonary disease) Priority: Secondary Status: Chronic Qualifiers: COPD type: emphysema Emphysema type: unspecified Qualified Code(s): J43.9 - Emphysema, unspecified (9) Current smoker Priority: Secondary Status: Chronic (10) Depression with anxiety Priority: Secondary Status: Chronic (11) Hypertension Priority: Secondary Status: Chronic Qualifiers: Hypertension type: essential hypertension Qualified Code(s): I10 - Essential (primary) hypertension (12) Hypothyroidism Priority: Secondary Status: Chronic Qualifiers: Hypothyroidism type: unspecified Qualified Code(s): E03.9 - Hypothyroidism , unspecified (13) Acute encephalopathy Priority: Primary Status: Resolved (14) Elevated troponin Priority: Primary Status: Acute - Discharge Medications Home Medications: Albuterol Sulfate [Albuterol Inhaler] 2 puff IH Q4H PRN 06/02/15 [History] Atorvastatin [Lipitor] 40 mg PO DAILY 06/02/15 [History] Citalopram Hydrobromide [Citalopram HBr] 20 mg PO QAM 06/02/15 [History] Levothyroxine [Synthroid] 200 mcg PO QAM 06/02/15 [History] Losartan Potassium 50 mg PO QAM 06/02/15 [History] Metoprolol Tartrate 25 mg PO BID 06/02/15 [History] Omeprazole 40 mg PO QAM 06/02/15 [History] Oxycodone HCl 10 mg PO Q6H PRN 06/02/15 [History] Aspirin 81 mg PO DAILY 09/22/15 [History] Docusate [Colace] 100 mg PO BID PRN 09/22/15 [History] B Complex with Vitamin C [[place]ee with C] 1 each PO DAILY 02/22/16 [History] Budesonide/Formoterol 160/4.5 [Symbicort 160/4.5] 1 puff IH QID PRN 08/29/16 [ History] CloNIDine HCl 0.1 mg PO DAILY PRN 08/29/16 [History] Sevelamer [Renvela] 800 mg PO TIDWM 08/29/16 [History] Nicotine Patch [Nicoderm] 21 mg TD DAILY patch.[id number] 08/31/16 [Rx] Allergies/Adverse Reactions: Allergies No Known Allergies Allergy (Verified 08/30/16 14:33) Date of admission: 08/29/16 21:05 Primary care physician: Yonatan Aleman, Consults: 08/29/16 21:45 Consult to Dialysis [CONS] ONCE 08/30/16 01:25 Consult to Nurse Navigator [CONS] Routine Comment: 08/31/16 08:15 Consult to Dialysis [CONS] ONCE Discharging clinician: Gabo Holguin Anticipated date of discharge: 08/31/16 - Patient Status Disposition: Home, Self-Care Condition: Fair Functional capacity at discharge: independent ambulation Overall status at discharge: patient is back to baseline - Discharge Instructions Follow Up With: Yonatan Aleman DO [Primary Care Provider] - 09/06/16 9:30 am () - Diet and Activity Activity: resume usual activities as tolerated, wear oxygen at all times Diet: advance to your usual diet Interval History: See below Hospital course: 66 Y/O F with ESRD on HD, CAD , CHFpEF, Chronic respiratory failure on home oxygen, HTN, HLD Patient was admitted and managed for acute encephalopathy from uremia and hyperkalemia after havng missed 2 HD sessions She has sicne returned to her baseline mental status and is awake, alert and oriented She received emergent HD on admission and potassium has returned to normal limits She is seen at bedside during hemodialysis She has no new complains She also developed elevated troponin which has downtrended and was possibly due to her ESRD status patient has no chest pain or EKG findings of ischemia She continues to smoke, smoking cessation counselling done Considering her ESRD status, she is on relatively high dose of opiates at home, encouraged to review this with her pain management physician Other chronic conditions remained stable thru this admission Follow up with PCP and ob/gyn nurse Time spent discussing smoking cessation with patient: 3 to 10 minutes (3 minutes spent on discussion of tobacco cessation) - Time Spent with Patient Total time spent providing and/or coordinating discharge services: Less than 30 minutes - Constitutional Vitals: Temp Pulse Resp BP Pulse Ox 99.3 F 75 15 94/53 98 08/31/16 16:30 08/31/16 16:30 08/31/16 16:30 08/31/16 16:30 08/31/16 16:30 General appearance: Present: A&O X 3, pleasant, no acute distress, obese. Absent: answers questions appropriately - Head Head exam: Present: atraumatic, normocephalic - Eye Eye exam: Present: PERRL, conjuntiva pink, sclera anicteric Pupils: Present: PERRL - Neck Neck exam general surgery: Present: supple, trachea midline. Absent: lymphadenopathy - Respiratory Respiratory exam: Present: CTAB. Absent: accessory muscle use, rales, rhonchi, wheezes - Cardiovascular Cardiovascular exam: Present: RRR, +S1, +S2. Absent: diastolic murmur, gallop, rubs, systolic murmur - GI/Abdominal GI/Abdominal exam: Present: normal bowel sounds, soft, no peritoneal signs. Absent: distended, tenderness - Extremities Exam Extremities exam: Present: warm, radial pulses palpable and symetrical. Absent : calf tenderness, cyanotic, pedal edema Additional comments: Palpable left UE thrill on AVF - Neurological Exam Neurological exam: Present: CN II-XII intact, oriented X3, no focal deficits. Absent: pronater drift, facial droop, speech deficit - Skin Skin exam: Present: dry
== END 2016-08-31 18:20 | disposition home or self-care (01) | DRG 871 ==
LOC: 2ANU 21:05 → SUATTDRO 21:05
PROVIDERS: ADMIT Hospitalist; ATTEND Internal Medicine

== ENCOUNTER 2016-11-14 17:34 | Inpatient (IN) ==
[2016-11-14] MEDS ORDERED: 0.9 % Sodium Chloride 1,000 ML IVC ONE (17:42)
[2016-11-14] MEDS ORDERED: Aspirin 81 MG TAB.CHEW PO ONE (17:50)
[2016-11-14] MEDS ORDERED: methylPREDNISolone 125 MG/2 ML VIAL IVP ONE (17:53)
[2016-11-14] MEDS ORDERED: Ipratropium/Albuterol Neb 3 ML IH ONE (17:54)
[2016-11-14 18:27] LABS: Basophils % 0.1 %; Mean Corpuscular HGB Conc 31.8 g/dL (31.6-35.5); Mean Platelet Volume 9.2 fL (9.4-12.4); Segmented Neutrophils % 71.4 %
[2016-11-14 18:28] LABS: Eosinophils # 0.3 K/mcL (0.0-0.6); Eosinophils % 3.7 %; Hematocrit 29.6 % (35.3-44.9); Hemoglobin 9.4 g/dL (11.5-15.4); Immature Granulocytes % 1.3 % (0-4); Immature Platelets 2.2 % (1.1-6.1); Lymphocytes # 1.1 K/mcL (0.6-4.6); Mean Corpuscular Hemoglobin 30.7 pg (28.0-33.3); Mean Corpuscular Volume 96.7 fL (83.0-100.0); Monocytes # 0.5 K/mcL (0.0-1.3); Monocytes % 7.5 %; Red Blood Count 3.06 M/mcL (3.82-4.97); Red Cell Distribution Width 14.5 % (11.5-14.5)
--- NOTE | 2016-11-14 18:28 | Emergency Department Note ---
Disposition Clinical Impression: Community acquired pneumonia, COPD exacerbation Disposition: Admitted As Inpatient Condition: Good Time of Disposition: 20:08 SOB HPI - General Chief Complaint: ED Shortness of Breath/Dyspnea Stated Complaint: KASEY Time Seen by Provider: 11/14/16 17:39 Source: patient, family Limitations: no limitations - History of Present Illness 66 year old female ERSD with Dr. Burrell and 3LNC continuos oxygen dependecy COPD presents to the ED from urgent care for evaluation of pnuemonia. Andrae states that about one week ago she developed right sided back pain that has been getting worse with shortness of breath. Her baseline is being able to wlak to the bathroom and speak without difficulty HOWEVER, within the past two days she has been experiencing increased exertional dyspnea and is now dyspneic between sentences and has difficulty walking ot the bathroom. Andrae states that prompted her to go to the urgent care and they obtain a CXR which showed a right sided pnuemonia. Andrae tates she has been experincing chills but no fevers at home. Mejia denies nausea, and vomitting. - Related Data Home Medications Medication Instructions Recorded Confirmed Albuterol Sulfate [Albuterol 2 puff IH Q4H PRN 06/02/15 11/14/16 Inhaler] Atorvastatin [Lipitor] 40 mg PO DAILY 06/02/15 11/14/16 Citalopram Hydrobromide 20 mg PO QAM 06/02/15 11/14/16 [Citalopram HBr] Levothyroxine [Synthroid] 200 mcg PO QAM 06/02/15 11/14/16 Losartan Potassium 50 mg PO QAM 06/02/15 11/14/16 Metoprolol Tartrate 25 mg PO BID 06/02/15 11/14/16 Omeprazole 40 mg PO QAM 06/02/15 11/14/16 Oxycodone HCl 10 mg PO Q6H PRN 06/02/15 11/14/16 Aspirin 81 mg PO DAILY 09/22/15 11/14/16 Docusate [Colace] 100 mg PO BID PRN 09/22/15 11/14/16 B Complex with Vitamin C [Mary Ann-Bee 1 each PO DAILY 02/22/16 11/14/16 with C] CloNIDine HCl 0.1 mg PO DAILY PRN 08/29/16 11/14/16 Sevelamer [Renvela] 800 mg PO TIDWM 08/29/16 11/14/16 Fluticasone/Salmeterol [Advair Hfa 2 puff IH BID 11/14/16 11/14/16 115-21 Mcg Inhaler] Hydrochlorothiazide 25 mg PO DAILY 11/14/16 11/14/16 Ipratropium/Albuterol Neb [Duoneb] 3 ml IH QID PRN 11/14/16 11/14/16 NIFEdipine [Nifedipine ER] 90 mg PO DAILY 11/14/16 11/14/16 Renal Vitamin [Renal Caps Softgel] 1 mg PO DAILY 11/14/16 11/14/16 Allergies Allergy/AdvReac Type Severity Reaction Status Date / Time levofloxacin [From Levaquin] Allergy Hives Verified 11/14/16 21:21 Constitutional: Reports: chills, weakness. Denies: fever, weight change Eyes: Denies: eye pain, eye discharge ENT ED: Reports: congestion. Denies: ear pain, throat pain, dental pain, hearing loss, dysphagia Cardiovascular: Reports: dyspnea on exertion. Denies: chest pain, palpitations , edema, syncope Respiratory: Reports: cough, dyspnea, wheezes. Denies: hemoptysis, stridor Gastrointestinal: Denies: abdominal pain, nausea, vomiting, diarrhea, constipation, hematemesis, melena, hematochezia Genitourinary: Denies: dysuria, frequency, hematuria Musculoskeletal: Reports: back pain. Denies: neck pain, arthralgia, myalgia Integumentary: Denies: rash, abrasion, lesions Neurological: Denies: headache, weakness, numbness, paresthesias, confusion Psychiatric: Denies: anxiety, depression, suicidal thoughts, homicidal thoughts , auditory hallucinations, visual hallucinations Past Medical History - Past Medical History Medical history: Reports: dialysis Surgical history: Reports: coronary bypass (CABG), other, vascular surgery ( Vascular left arm. Renal stents.) Psychiatric history: Reports: anxiety, depression [employer] history: Reports: no [employer] history - Social History Smoking Status: Current every day smoker Smokeless Tobacco Status: No Alcohol use: Reports: none Drug use: Reports: none Physical Exam - General Limitations: no limitations General appearance: alert, in no apparent distress - Head Head exam: atraumatic, normocephalic, normal inspection - Eye Eye exam: Present: normal appearance, PERRL, EOMI - Expanded Eye Exam Pupils: Left: reactive - ENT ENT exam: normal exam, normal oropharynx, mucous membranes moist - Expanded ENT Exam External ear exam: Present: normal external inspection Mouth exam: Present: normal external inspection Teeth exam: Present: normal inspection Throat exam: Present: normal inspection - Neck Neck exam: Present: normal inspection, full ROM, trachea midline - Chest Chest inspection: Present: normal inspection, symmetric chest wall rise - Respiratory Respiratory exam: Present: normal lung sounds bilaterally - Cardiovascular Cardiovascular exam: Present: regular rate, normal rhythm, normal heart sounds - Abdominal Exam Abdominal exam: Present: soft, Non-Tender. Absent: tenderness, distention, guarding, rebound, rigidity - Extremities Exam Extremities exam: Present: normal inspection, full ROM. Absent: tenderness, pedal edema - Expanded Upper Extremity Exam Shoulder exam: Present: normal inspection, full ROM Arm exam: Present: normal inspection, full ROM Elbow exam: Present: normal inspection, full ROM Forearm/Wrist exam: Present: normal inspection, full ROM Hand exam: Present: normal inspection, full ROM Vascular exam: Normal: capillary refill, radial pulse - Expanded Lower Extremity Exam Hip/Pelvis exam: Present: normal inspection, full ROM Upper leg exam: Present: normal inspection, full ROM Knee exam: Present: normal inspection, full ROM Lower leg exam: Present: normal inspection, full ROM Ankle exam: Present: normal inspection, full ROM Foot/toe exam: Present: normal inspection, full ROM Neurovascular/Tendon exam: Absent: motor deficit, sensory deficit, tendon deficit - Back Exam Back exam: Present: normal inspection, full ROM. Absent: tenderness - Neurological Exam Neurological exam: Present: alert, oriented X3 - Expanded Neurological Exam Patient oriented to: Present: person, place, time Coma Scale Eye Opening: Spontaneous Coma Scale Motor Response: Obeys Commands Coma Scale Verbal Response: Oriented Coma Scale Total: 15 - Psychiatric Psychiatric exam: Present: normal affect, normal mood - Skin Skin exam: Present: warm, dry, intact, normal color Course Course Narrative: we will do a focued sepsis workup and treat her pnumonia with zosyn at this time due to inability to treat with levaquin due to her ESRD. - Consultations Consultation #1: discussed case with hospitlaist and they have accepted her to the service. Patient is agreeable. Time: 20:08 Vital Signs Temperature 98.0 F 11/14/16 17:35 Pulse Rate 85 11/14/16 17:35 Respiratory Rate 18 11/14/16 17:35 Blood Pressure 147/72 11/14/16 17:35 O2 Sat by Pulse Oximetry 93 11/14/16 17:35 Temperature 98.0 F 11/14/16 17:35 Pulse Rate 86 11/14/16 20:04 Respiratory Rate 20 11/14/16 20:34 Blood Pressure 138/70 11/14/16 20:34 O2 Sat by Pulse Oximetry 96 11/14/16 20:04 Oxygen Delivery Oxygen Delivery Nasal Cannula Shortness of Breath/Dyspnea - Lab Data Result diagrams: 11/14/16 18:20 11/14/16 18:20 Lab Results 11/14/16 11/14/16 11/14/16 Range/Units 17:22 18:20 18:20 WBC (4.3-11.1) K/mcL RBC (3.82-4.97) M/mcL Hgb (11.5-15.4) g/dL Hct (35.3-44.9) % MCV (83.0-100.0) fL MCH (28.0-33.3) pg MCHC (31.6-35.5) g/dL RDW (11.5-14.5) % Plt Count (140-400) K/mcL MPV (9.4-12.4) fL Immature Gran % (0-4) % Seg Neutrophils % % Lymphocytes % % Monocytes % % Eosinophils % % Basophils % % Neutrophils # (1.6-8.9) K/mcL Lymphocytes # (0.6-4.6) K/mcL Monocytes # (0.0-1.3) K/mcL Eosinophils # (0.0-0.6) K/mcL Basophils # (0.0-0.2) K/mcL Immature Plt Fraction (1.1-6.1) % PT 12.0 (9.4-12.1) Seconds INR 1.1 APTT 31.0 (26.0-36.0) Seconds Sodium (136-145) mEq/L Potassium (3.5-4.5) mEq/L Chloride (98-109) mEq/L Carbon Dioxide (19-29) mEq/L BUN (7-20) mg/dL Creatinine (0.57-1.11) mg/dL Est GFR ( Amer) (> 60) Est GFR (Non-Af Amer) (> 60) BUN/Creatinine Ratio (6-26) Glucose (70-99) mg/dL Calculated Osmolality (280-300) Lactic Acid 1.7 (0.5-2.2) mmol/L Calcium (8.6-10.8) mg/dL Troponin I (0-0.03) ng/mL B-Natriuretic Peptide (0-100) pg/mL Lipase (8-78) Units/L Urine Color Yellow (Yellow) Urine Clarity Cloudy A (Clear) Urine pH 7.0 (5.0-8.0) pH Units Ur Specific [place] 1.007 L (1.010-1.025) Urine Protein 100 H (Neg-Trace) mg/dL Urine Glucose (UA) Normal (Normal) mg/dL Urine Ketones Negative (Negative) mg/dL Urine Blood Large H (Negative) Urine Nitrite Negative (Negative) Urine Bilirubin Negative (Negative) Urine Urobilinogen Normal (Normal) mg/dL Ur Leukocyte Esterase Trace H (Negative) Urine Microscopic RBC 30-50 H (0-3) per hpf Urine Microscopic WBC 3-5 H (0-3) per hpf Ur Squamous Epith Cells Many H (None-Few) per lpf Urine Bacteria Few (None-Few) per hpf Hyaline Casts None Seen (None-Few) per lpf Ur Culture Indicated? YES A (NO) 11/14/16 11/14/16 11/14/16 Range/Units 18:20 18:20 18:20 WBC 6.8 (4.3-11.1) K/mcL RBC 3.06 L (3.82-4.97) M/mcL Hgb 9.4 L (11.5-15.4) g/dL Hct 29.6 L (35.3-44.9) % MCV 96.7 (83.0-100.0) fL MCH 30.7 (28.0-33.3) pg MCHC 31.8 (31.6-35.5) g/dL RDW 14.5 (11.5-14.5) % Plt Count 99 L (140-400) K/mcL MPV 9.2 L (9.4-12.4) fL Immature Gran % 1.3 (0-4) % Seg Neutrophils % 71.4 % Lymphocytes % 16.0 % Monocytes % 7.5 % Eosinophils % 3.7 % Basophils % 0.1 % Neutrophils # 4.9 (1.6-8.9) K/mcL Lymphocytes # 1.1 (0.6-4.6) K/mcL Monocytes # 0.5 (0.0-1.3) K/mcL Eosinophils # 0.3 (0.0-0.6) K/mcL Basophils # 0.0 (0.0-0.2) K/mcL Immature Plt Fraction 2.2 (1.1-6.1) % PT (9.4-12.1) Seconds INR APTT (26.0-36.0) Seconds Sodium (136-145) mEq/L Potassium (3.5-4.5) mEq/L Chloride (98-109) mEq/L Carbon Dioxide (19-29) mEq/L BUN (7-20) mg/dL Creatinine (0.57-1.11) mg/dL Est GFR ( Amer) (> 60) Est GFR (Non-Af Amer) (> 60) BUN/Creatinine Ratio (6-26) Glucose (70-99) mg/dL Calculated Osmolality (280-300) Lactic Acid (0.5-2.2) mmol/L Calcium (8.6-10.8) mg/dL Troponin I (0-0.03) ng/mL B-Natriuretic Peptide 1195 H (0-100) pg/mL Lipase 47 (8-78) Units/L Urine Color (Yellow) Urine Clarity (Clear) Urine pH (5.0-8.0) pH Units Ur Specific [place] (1.010-1.025) Urine Protein (Neg-Trace) mg/dL Urine Glucose (UA) (Normal) mg/dL Urine Ketones (Negative) mg/dL Urine Blood (Negative) Urine Nitrite (Negative) Urine Bilirubin (Negative) Urine Urobilinogen (Normal) mg/dL Ur Leukocyte Esterase (Negative) Urine Microscopic RBC (0-3) per hpf Urine Microscopic WBC (0-3) per hpf Ur Squamous Epith Cells (None-Few) per lpf Urine Bacteria (None-Few) per hpf Hyaline Casts (None-Few) per lpf Ur Culture Indicated? (NO) 11/14/16 11/14/16 Range/Units 18:20 18:20 WBC (4.3-11.1) K/mcL RBC (3.82-4.97) M/mcL Hgb (11.5-15.4) g/dL Hct (35.3-44.9) % MCV (83.0-100.0) fL MCH (28.0-33.3) pg MCHC (31.6-35.5) g/dL RDW (11.5-14.5) % Plt Count (140-400) K/mcL MPV (9.4-12.4) fL Immature Gran % (0-4) % Seg Neutrophils % % Lymphocytes % % Monocytes % % Eosinophils % % Basophils % % Neutrophils # (1.6-8.9) K/mcL Lymphocytes # (0.6-4.6) K/mcL Monocytes # (0.0-1.3) K/mcL Eosinophils # (0.0-0.6) K/mcL Basophils # (0.0-0.2) K/mcL Immature Plt Fraction (1.1-6.1) % PT (9.4-12.1) Seconds INR APTT (26.0-36.0) Seconds Sodium 138 (136-145) mEq/L Potassium 3.3 L (3.5-4.5) mEq/L Chloride 102 (98-109) mEq/L Carbon Dioxide 24 (19-29) mEq/L BUN 36 H (7-20) mg/dL Creatinine 4.08 H (0.57-1.11) mg/dL Est GFR ( Amer) 13 L (> 60) Est GFR (Non-Af Amer) 11 L (> 60) BUN/Creatinine Ratio 9 (6-26) Glucose 142 H (70-99) mg/dL Calculated Osmolality 297 (280-300) Lactic Acid (0.5-2.2) mmol/L Calcium 8.3 L (8.6-10.8) mg/dL Troponin I 0.02 (0-0.03) ng/mL B-Natriuretic Peptide (0-100) pg/mL Lipase (8-78) Units/L Urine Color (Yellow) Urine Clarity (Clear) Urine pH (5.0-8.0) pH Units Ur Specific [place] (1.010-1.025) Urine Protein (Neg-Trace) mg/dL Urine Glucose (UA) (Normal) mg/dL Urine Ketones (Negative) mg/dL Urine Blood (Negative) Urine Nitrite (Negative) Urine Bilirubin (Negative) Urine Urobilinogen (Normal) mg/dL Ur Leukocyte Esterase (Negative) Urine Microscopic RBC (0-3) per hpf Urine Microscopic WBC (0-3) per hpf Ur Squamous Epith Cells (None-Few) per lpf Urine Bacteria (None-Few) per hpf Hyaline Casts (None-Few) per lpf Ur Culture Indicated? (NO) - EKG Data EKG attestation: Yes I reviewed and interpreted this EKG. EKG results narrative: NSR with rate of 81. No STEMI/ normal intervals. LAE. New ischemc changes in V5- 6 with t wave inversion, new from previous ekd of 08/29/16. 1745 Attestation Statement - Attestation Attestation: I personally interviewed and examined this patient and my medical decision- making was reviewed with the ED Resident Physician, Dr. Bolivar. I agree with the documented findings, disposition and treatment plan as described except to the extent set forth below. Patient is a 66-year-old white female with history of COPD, end-stage renal disease on hemodialysis Monday, and other multiple medical issues who presents to the emergency department today with a one-week history of gradually worsening shortness of breath and right posterior chest wall pain. Patient states that she feeling some upper respiratory symptoms for the past 1 -2 weeks but feels like it really became significantly worse over the last 24 hours. Patient states she did dialyze earlier today and had mentioned to the nurses on dialysis he sent her for an outpatient chest x-ray. Patient was told the chest x-ray showed pneumonia and was instructed to come to the emergency department for further evaluation and treatment. Patient has no respiratory distress, and on room air O2 sats 90-93%. Patient was placed on nasal cannula oxygen with improvement of her oxygenation. Patient does have some new findings on her EKG showing some lateral ischemia but no acute ST elevation is noted. At this time patient denies any form of chest wall pain pressure or heaviness. She just states that with walking or light activity she gets increasing shortness of breath. Patient will receive IV antibiotics and supplemental oxygen and breathing treatments and be admitted for further evaluation and treatment of pneumonia and hypoxia. Patient remained hemodynamically stable.
[2016-11-14 18:29] LABS: Neutrophils # 4.9 K/mcL (1.6-8.9); Platelet Count 99 K/mcL (140-400)
[2016-11-14 18:31] LABS: INR 1.1
[2016-11-14 18:44] LABS: Calcium 8.3 mg/dL (8.6-10.8); Potassium 3.3 mEq/L (3.5-4.5)
[2016-11-14] MEDS ORDERED: Levofloxacin 750 MG/150 ML 750 MG/150 ML BAG IVPB ONE (19:25)
[2016-11-14 19:31] LABS: Bilirubin,Urine Negative (Negative); Blood,Urine Large (Negative); Clarity,Urine Cloudy (Clear); Color,Urine Yellow (Yellow); Glucose,Urine (UA) Normal (Normal); Ketones,Urine Negative (Negative); Leukocyte Esterase,Urine Trace (Negative); Nitrite,Urine Negative (Negative); Protein,Urine 100 mg/dL (Neg-Trace); Specific Gravity,Urine 1.007 (1.010-1.025); Urobilinogen,Urine Normal (Normal)
[2016-11-14 19:33] LABS: Bacteria,Urine Few per hpf (None-Few); Hyaline Casts,Urine None Seen per lpf (None-Few); RBC,Urine 30-50 per hpf (0-3); Squamous Epithelial Cell,Urine Many per lpf (None-Few)
[2016-11-14] MEDS ORDERED: Naloxone 0.4 MG/ML INJ IVP PRN (22:44)
[2016-11-14] MEDS ORDERED: Acetaminophen 325 MG TABLET PO PRN (22:44)
[2016-11-14] MEDS ORDERED: cloNIDine HCl 0.1 MG TABLET PO PRN (22:50)
[2016-11-14] MEDS ORDERED: Albuterol 2.5 MG/3 ML NEBULIZER IH PRN (22:57)
[2016-11-14] MEDS: *HR* OxyCODONE Immed Rel 5 MG TABLET PO PRN (23:30)
--- NOTE | 2016-11-14 23:43 | Internal Med History&Physical ---
Date of Encounter: 11/15/16 Time of Encounter: 23:32 Assessment and Plan (1) Pneumonia Current visit: No Status: Acute 1 Patient has been experiencing nonproductive cough, SOB fatigue. No leukocytosis or fever. CXR suggestive of pneumonia . Blood culture obtain per ED 2 Patient was given Levaquin in ED patient had allergic reaction consisting of welts was given IV Benadryl improved. Will give Rocephin and zithromax 3 Bronchodilators 4 oxygen titrate to maintain spo2 >92% 5 will obtain flu swabs- exposure to flu Qualifiers: Pneumonia type: due to unspecified organism Laterality: right Lung location: unspecified part of lung Qualified Code(s): J18.9 - Pneumonia, unspecified organism (2) Acute on chronic respiratory failure with hypoxia Current visit: No Status: Acute Patient has hx of COPD on chronic O2 at 3 L nC. Presented with Spo2 90 % Improved after Oxygen administration. Will conitnue with oxygen titrate to maintain spo2 > 92 % 2 Bronchodilators (3) CAD (coronary artery disease) Current visit: No Status: Chronic Hx of CAD with CABG- will conintue with ASA Stain BB ANJUM nitro as needed for CP Qualifiers: Coronary Disease-Associated Artery/Lesion type: bypass graft [place] vs. transplanted heart: sycuan heart Associated angina: with unspecified angina Qualified Code(s): I25.709 - Atherosclerosis of coronary artery bypass graft(s) , unspecified, with unspecified angina pectoris (4) End stage renal disease Current visit: No Status: Chronic 1 Patient ESRD on dialysis M W F with Dr Rivera . Had Dialysis today. Consult nephrology for HD 2 Renal diet 3 monitor I/O 4daily weights 5 avoid nephrotoxins (5) COPD (chronic obstructive pulmonary disease) Current visit: No Status: Chronic 1 continue wit hoxygen and bronchodilators. encourage to stop smoking Qualifiers: COPD type: emphysema Emphysema type: unspecified Qualified Code(s): J43.9 - Emphysema, unspecified (6) DVT prophylaxis Current visit: No Status: Acute SCD dt platelets 99 (7) EKG abnormalities Current visit: Yes Status: Acute Noted ST wave inversion in V5 V6 as well as T wave flattening in V4. We will obtain repeat EKG in AM cycle cardiac troponin Patient is CP free at this time Cardiac monitoring . (8) Anemia, chronic renal failure Current visit: No Status: Acute 1 will conitue to monitor H/H transfuse if less than 7 Qualifiers: Chronic kidney disease stage: stage 5 Qualified Code(s): N18.5 - Chronic kidney disease, stage 5; D63.1 - Anemia in chronic kidney disease (9) Hypertension Current visit: No Status: Chronic continue with home medications - goal is maintain systolic less than 140 Qualifiers: Hypertension type: essential hypertension Qualified Code(s): I10 - Essential (primary) hypertension Internal Medicine - H&P: HPI Chief complaint: sob Admitted From: Emergency Dept Plans for Post Hospital Care: Home History of present illness: Ms. Orellana is a 66 year old female past history of hypertension COPD oxygen dependent coronary disease CABG end-stage renal disease on dialysis Monday with Dr. Desouza. Patient has been experiencing shortness of breath with cough 1 week. Cough is nonproductive she denies any fevers or chills she does admit to weakness and fatigue. The past 2 days she is growing increasingly short of breath on exertion is unable to complete ADLs. She is on oxygen 3 L nasal cannula and has been using breathing treatments with little relief. She admits to sick contacts who have been exposed to flu. She denies any nausea vomiting diarrhea chest pain. Patient went to dialysis this a.m. and then afterwards presented to a urgent care for evaluation x-ray was obtained she was told she had pneumonia and was advised to go to the ER for evaluation. Upon arrival patient was not in any respiratory distress she was 90 -93% on room air. EKG was obtained which did show some lateral ischemia but no acute ST elevation. Lab work revealed no leukocytosis potassium was 3.3 troponin was 0.0 to patient was given IV antibiotics oxygen breathing treatments. Apparently after patient received antibiotic of Levaquin she broke out in hives she was given Benadryl and condition improved. She has been admitted for further workup and evaluation of pneumonia hypoxia.. Presently patient is not. The respiratory distress she denies any chest pain. Lung sounds are clear diminished in the bases bilaterally. Heart sounds S1-S2 no rubs or clicks murmurs or gallops noted. She is hemodialysis stable at this time. I reviewed this case with Dr. Crook who agrees with plan. Past Med Surg Social Fam HX - Past Medical History Medical history: arthritis, dialysis, hyperlipidemia, hypertension, renal disease, thyroid disease Psychiatric history: anxiety, depression - Past Surgical History Surgical History: coronary bypass (CABG) - Social History Smoking Status: Current every day smoker Smokeless Tobacco Status: No Alcohol use: none Drug use: none - Family History Brother Family Member Ethnicity: Unknown Hx Family Cardiac Disorders: Yes (one brother passed sudden heart attack) Mother Living Status: Hx Family Cancer: Yes (lung cancer) Father Living Status: Hx Family Cancer: Yes (lung cancer) Internal Medicine - H&P: Meds Albuterol Sulfate [Albuterol Inhaler] 2 puff IH Q4H PRN 06/02/15 [History] Atorvastatin [Lipitor] 40 mg PO DAILY 06/02/15 [History] Citalopram Hydrobromide [Citalopram HBr] 20 mg PO QAM 06/02/15 [History] Levothyroxine [Synthroid] 200 mcg PO QAM 06/02/15 [History] Losartan Potassium 50 mg PO QAM 06/02/15 [History] Metoprolol Tartrate 25 mg PO BID 06/02/15 [History] Omeprazole 40 mg PO QAM 06/02/15 [History] Oxycodone HCl 10 mg PO Q6H PRN 06/02/15 [History] Aspirin 81 mg PO DAILY 09/22/15 [History] Docusate [Colace] 100 mg PO BID PRN 09/22/15 [History] B Complex with Vitamin C [Mary Ann-Bee with C] 1 each PO DAILY 02/22/16 [History] CloNIDine HCl 0.1 mg PO DAILY PRN 08/29/16 [History] Sevelamer [Renvela] 800 mg PO TIDWM 08/29/16 [History] Fluticasone/Salmeterol [Advair Hfa 115-21 Mcg Inhaler] 2 puff IH BID 11/14/16 [ History] Hydrochlorothiazide 25 mg PO DAILY 11/14/16 [History] Ipratropium/Albuterol Neb [Duoneb] 3 ml IH QID PRN 11/14/16 [History] NIFEdipine [Nifedipine ER] 90 mg PO DAILY 11/14/16 [History] Renal Vitamin [Renal Caps Softgel] 1 mg PO DAILY 11/14/16 [History] Allergies levofloxacin [From Levaquin] Allergy (Verified 11/14/16 21:21) Hives All Systems PM: A 10-system review of systems was performed and is negative for pertinent findings except as documented above in the HPI. - Constitutional Constitutional: no chills, no fever(s), no night sweats - EENT Eyes: no change in vision, no discharge, no pain, no photophobia Nose, mouth and throat: no dysphagia, no nasal discharge, no neck pain, no sore throat - Cardiovascular Cardiovascular ROS IM: chest pain, dyspnea, dyspnea on exertion - Respiratory Respiratory: cough, dyspnea on exertion - Gastrointestinal Gastrointestinal: no abdominal pain, no diarrhea, no hematemesis, no hematochezia, no melena, no nausea, no vomiting - Genitourinary Genitourinary: no change in urinary stream, no dysuria, no flank pain, no hematuria - Musculoskeletal Musculoskeletal ROS IM: no numbness, no tingling - Integumentary Integumentary IM: no rash, no unusual bruising - Constitutional Vitals: Temp Pulse Resp BP Pulse Ox 98.1 F 90 18 158/71 92 11/14/16 21:58 11/14/16 21:58 11/14/16 21:58 11/14/16 21:58 11/14/16 21:58 General appearance: Present: A&O X 3 - Head Head exam: Present: atraumatic, normocephalic - Eye Eye exam: Present: PERRL, conjuntiva pink, sclera anicteric Pupils: Present: PERRL - Respiratory Respiratory exam: Present: decreased breath sounds, CTAB. Absent: accessory muscle use, rales, rhonchi, wheezes - Cardiovascular Cardiovascular exam: Present: RRR, +S1, +S2. Absent: diastolic murmur, gallop, rubs, systolic murmur - GI/Abdominal GI/Abdominal exam: Present: normal bowel sounds, soft, no peritoneal signs. Absent: distended, tenderness - Extremities Exam Extremities exam: Present: warm, radial pulses palpable and symetrical. Absent : calf tenderness, cyanotic, pedal edema - Neurological Exam Neurological exam: Present: CN II-XII intact, oriented X3, no focal deficits. Absent: pronater drift, facial droop, speech deficit - Skin Skin exam: Present: dry, intact Internal Med - H&P Results - Labs CBC & Chem 7: 11/14/16 18:20 11/14/16 18:20 - EKG Data EKG shows normal: sinus rhythm - EKG Data Prior EKG available for review: yes Interpretation IM: suggestive of ischemia - Diagnostic Studies Chest x-ray Additional comments: Pertinent radiology read. Faint right basilar airspace disease atelectasis or pneumonia. There is a trace right pleural effusion. There is definitive change of left basilar chronic airspace disease and small left pleural effusion
[2016-11-15] MEDS: Ipratropium/Albuterol Neb 3 ML IH SCH ×5 (00:18→22:40)
[2016-11-15 01:17] LABS: Basophils % 0.2 %; Hemoglobin 9.7 g/dL (11.5-15.4); Mean Corpuscular Volume 97.2 fL (83.0-100.0); Red Cell Distribution Width 14.2 % (11.5-14.5)
[2016-11-15 01:19] LABS: Eosinophils % 0.3 %; Hematocrit 30.7 % (35.3-44.9); Immature Granulocytes % 2.1 % (0-4); Immature Platelets 2.8 % (1.1-6.1); Lymphocytes # 0.3 K/mcL (0.6-4.6); Lymphocytes % 3.8 %; Mean Corpuscular HGB Conc 31.6 g/dL (31.6-35.5); Mean Corpuscular Hemoglobin 30.7 pg (28.0-33.3); Mean Platelet Volume 9.2 fL (9.4-12.4); Monocytes # 0.1 K/mcL (0.0-1.3); Monocytes % 1.4 %; Red Blood Count 3.16 M/mcL (3.82-4.97); Segmented Neutrophils % 92.2 %
[2016-11-15 01:21] LABS: Platelet Count 95 K/mcL (140-400)
[2016-11-15 01:32] LABS: Calcium 8.6 mg/dL (8.6-10.8); Potassium 3.8 mEq/L (3.5-4.5)
--- NOTE | 2016-11-15 08:13 | Nephrology Consult Note ---
Date of Encounter: 11/15/16 Time of Encounter: 08:11 Assessment and Plan (1) End stage renal disease Current Visit: No Status: Chronic Patient has end-stage renal disease. She receives dialysis every Monday and pectin. Last dialysis was yesterday. She is now admitted with what seems to be right sided pneumonia along with some pleuritic type chest pain. She is on antibiotics. Hemoglobin is 9.7. She will be maintained on Aranesp. She will continue to have her routine dialysis every Monday. Otherwise she is stable from a renal perspective. (2) Pneumonia Current Visit: No Status: Acute Qualifiers: Pneumonia type: due to unspecified organism Laterality: left Lung location: lower lobe of lung Qualified Code(s): J18.1 - Lobar pneumonia, unspecified organism (3) COPD (chronic obstructive pulmonary disease) Current Visit: No Status: Chronic Qualifiers: COPD type: emphysema Emphysema type: unspecified Qualified Code(s): J43.9 - Emphysema, unspecified (4) Anemia, chronic renal failure Current Visit: No Status: Acute Qualifiers: Chronic kidney disease stage: stage 5 Qualified Code(s): N18.5 - Chronic kidney disease, stage 5; D63.1 - Anemia in chronic kidney disease History of Present Illness - History of Present Illness This is a 66-year-old female with end-stage renal disease. She receives dialysis and pectin every Monday. History the patient presented dialysis with complaints of new onset right-sided chest pain shoulder pain and back pain. Pain was worse with deep inspiration. Her shortness of breath was a little bit worse. She does have underlying COPD. She subsequently went to the urgent care. A chest x-ray showed a faint infiltrate in the right base. She subsequently was admitted duodenal with a diagnosis of pneumonia. She currently is receiving antibiotics. She has her usual shortness of breath. She says her underlying cough has not changed. She denies any sputum production. She continues to have a right-sided chest shoulder and back discomfort. It is worse with certain movements and also with deep inspiration. She denies any fevers or chills. She did complete her entire dialysis treatment yesterday. Past Med Surg Social Fam HX - Past Medical History Medical history: arthritis, dialysis, hyperlipidemia, hypertension, renal disease, thyroid disease Psychiatric history: anxiety, depression - Past Surgical History Surgical History: coronary bypass (CABG) - Social History Smoking Status: Current every day smoker Smokeless Tobacco Status: No Alcohol use: none Drug use: none - Family History Brother Family Member Ethnicity: Unknown Hx Family Cardiac Disorders: Yes (one brother passed sudden heart attack) Mother Living Status: Hx Family Cancer: Yes (lung cancer) Father Living Status: Hx Family Cancer: Yes (lung cancer) Medications and Allergies Albuterol Sulfate [Albuterol Inhaler] 2 puff IH Q4H PRN 06/02/15 [History] Atorvastatin [Lipitor] 40 mg PO DAILY 06/02/15 [History] Citalopram Hydrobromide [Citalopram HBr] 20 mg PO QAM 06/02/15 [History] Levothyroxine [Synthroid] 200 mcg PO QAM 06/02/15 [History] Losartan Potassium 50 mg PO QAM 06/02/15 [History] Metoprolol Tartrate 25 mg PO BID 06/02/15 [History] Omeprazole 40 mg PO QAM 06/02/15 [History] Oxycodone HCl 10 mg PO Q6H PRN 06/02/15 [History] Aspirin 81 mg PO DAILY 09/22/15 [History] Docusate [Colace] 100 mg PO BID PRN 09/22/15 [History] B Complex with Vitamin C [Mary Ann-Bee with C] 1 each PO DAILY 02/22/16 [History] CloNIDine HCl 0.1 mg PO DAILY PRN 08/29/16 [History] Sevelamer [Renvela] 800 mg PO TIDWM 08/29/16 [History] Fluticasone/Salmeterol [Advair Hfa 115-21 Mcg Inhaler] 2 puff IH BID 11/14/16 [ History] Hydrochlorothiazide 25 mg PO DAILY 11/14/16 [History] Ipratropium/Albuterol Neb [Duoneb] 3 ml IH QID PRN 11/14/16 [History] NIFEdipine [Nifedipine ER] 90 mg PO DAILY 11/14/16 [History] Renal Vitamin [Renal Caps Softgel] 1 mg PO DAILY 11/14/16 [History] Allergies ceftriaxone [From Rocephin] Allergy (Verified 11/15/16 03:10) Hives levofloxacin [From Levaquin] Allergy (Verified 11/14/16 21:21) Hives Review of Systems Constitutional: as per HPI Eyes: bilateral: blurred vision (patient denies), diplopia (patient denies) Nose, mouth and throat: no dizziness, no headache(s) Cardiovascular: chest pain, dyspnea, dyspnea on exertion, no palpitations Respiratory: cough, dyspnea on exertion Gastrointestinal: no abdominal pain, no change in bowel habits Musculoskeletal: no muscle weakness, no numbness Musculoskeletal: right: shoulder pain Integumentary: no hirsutism, no striae Neurological: as per HPI Psychiatric: no depression, no difficulty concentrating Endocrine: as per HPI Exam - Vital Signs Vital signs: Initial Vital Signs Temp Pulse Resp BP Pulse Ox 98.0 F 85 18 147/72 93 11/14/16 17:35 11/14/16 17:35 11/14/16 17:35 11/14/16 17:35 11/14/16 17:35 Vital Signs - Last 8 Hours Temp Pulse Resp BP Pulse Ox 11/15/16 07:09 98.4 F 90 18 145/67 97 11/15/16 04:45 20 95 11/15/16 04:13 98.0 F 88 22 149/73 92 11/15/16 00:18 20 94 Intake and Output 11/14/16 11/15/16 11/15/16 23:59 07:59 15:59 Intake Total 170 / 170 Balance 170 / 170 Intake: IV Fluids 50 / 50 Rocephin 1,000 MG In 50 / 50 Dextrose 5% (Minibag+) 100 ML 100 ML @ 200 mls/ hr IVPB Q24H COUNT INCLUDES THE [facility] Rx#: [id number] Oral 120 / 120 - General Appearance Exam: Patient is alert and oriented. She is in no acute distress. Neck is supple. Lungs exhibit diminished breath sounds bilaterally. No rales wheezing or rhonchi are noted. Heart irregular rate and rhythm. Abdomen shows normal bowel sounds bruits masses, megaly or tenderness. Lower extremities show no peripheral edema. There is a functioning AV fistula in the left arm. Results - Lab Results 11/15/16 00:48 11/15/16 00:48 Most recent lab results Calcium 8.6 mg/dL (8.6-10.8) 04/11/17 00:48 Consult Discharge Plan - Plan Referrals: Yonatan Aleman DO [Primary Care Provider] -
[2016-11-15] MEDS: *HR* OxyCODONE Immed Rel 5 MG TABLET PO PRN ×3 (08:24→20:55)
[2016-11-15] MEDS: Azithromycin 500 MG in D5% in Water 250 ML IVPB SCH (08:44)
[2016-11-15] MEDS: Vitamin B Complex/Vit C/Vit E 1 EACH TABLET PO SCH (08:45)
[2016-11-15] MEDS: NIFEdipine XL (24 HR) 30 MG TAB.ER.24 PO SCH (08:45)
[2016-11-15] MEDS: Renal Vitamin 1 MG CAPSULE PO SCH (08:45)
[2016-11-15] MEDS: Aspirin 81 MG TAB.CHEW PO SCH (08:45)
[2016-11-15] MEDS ORDERED: hydroCHLOROthiazide 25 MG TABLET PO SCH (09:00)
[2016-11-15] MEDS: Budesonide/Formoterol 80/4.5 MDI IH SCH ×2 (10:06→22:40)
--- NOTE | 2016-11-15 13:38 | Internal Med Progress Note ---
<Hudson Monroe - Last Filed: 11/15/16 15:01> Date of Encounter: 11/15/16 Time of Encounter: 09:10 - Assessment and plan (1) Pneumonia Current Visit: Yes Status: Acute Assessment and plan: Most likely bacterial pneumonia. Causative organism unknown. Did have one dose of Levoquen but had an allergic reaction and rash. also developed rash to rocephin. patient is afebrile. No impressive changes on CXR. Will continue on azithromycin. (2) Acute and chronic respiratory failure Current Visit: Yes Status: Acute Assessment and plan: multifactorial given her COPD and chronic left pleural effusion. Currently on home dose of oxygen. (3) CAD (coronary artery disease) Current Visit: Yes Status: Chronic Assessment and plan: continue lipitor and ASA (4) End stage renal disease Current Visit: Yes Status: Acute Assessment and plan: patient has dialysis on M/W/F Managemtn per nephrology. appreciate their assistence. (5) Neck mass Current Visit: Yes Status: Acute Assessment and plan: patient has what appears to be a pulsatile mass over the carotid region of the right neck. It is also visually pulsatile. There is no such mass or pulsation on the left neck. discussed with nephrology. and reviewed urine output from prior admisison. she makes very little urine. We will obtain a CT angiogram of the neck. she will have dialysis tomorrow. If there is a significant aneurism of AVM we will discuss with vascular surgery. (6) COPD (chronic obstructive pulmonary disease) Current Visit: Yes Status: Acute Assessment and plan: currently not in exacerbation. continue symbicort and PRN Duonebs. on home dose of O2. (7) Anemia Current Visit: Yes Status: Acute Assessment and plan: Normocytic. Likely anemia of chronic kidney disease. recent iron studies were normal. on aranesp. continue to monitor. (8) Nonspecific ST-T wave electrocardiographic changes Current Visit: Yes Status: Acute Assessment and plan: mild St depressions in V5 V6 repeat EKG was ordered for this AM. However not performed. We will have them obtain an EKG now. (9) DVT prophylaxis Current Visit: Yes Status: Acute Assessment and plan: on SQ heparin. - Subjective Interval history: No major events overnight the patient denies any fever, or malaise. she states that she is feeling better and close to her baseline. She states her cough is productive/ yellow. denies any hemoptysis. she dose complain of intermittent neck pain under her right jaw. She has no further complaints or concerns at this time. - Constitutional Vitals: Temp Pulse Resp BP Pulse Ox 98.6 F 90 18 115/57 94 11/15/16 10:41 11/15/16 10:41 11/15/16 10:41 11/15/16 10:41 11/15/16 10:41 Exam: General: This is a well-developed well-nourished 66-year-old female. She is alert and orientated to person place time and situation. Sitting up in bed appears to be comfortable no acute distress currently wearing oxygen via nasal cannula. HEENT: Head is normocephalic and atraumatic. Normal external appearance of the ears nose and eyes. Anicteric sclera, pupils equally round reactive light and accommodation. Moist mucous membranes. Dentition intact, tongue and uvula midline. Neck is supple there is a pulsatile mass under the angle of the right mandible overlying were ablated the carotid would be. There is a bruit when auscultating this mass. Heart: Regular rate and rhythm without murmurs rubs or gallops. No JVD. There is a smile carotid bruit overlying the right carotid and neck mass. Lungs: She has a normal effort breathing and is able to speak in full sentences. There is a normal rise and expanse of the chest wall bilaterally. She does have some mild scant expiratory wheezes bilaterally otherwise lungs are clear to auscultation bilaterally. Abdomen: The abdomen is obese, nondistended, nontender to palpation. Bowel sounds are positive. Musculoskeletal: Grossly normal for age no gross deformities noted. Extremities: No clubbing or cyanosis. Minimal pedal edema noted. Integument: No rashes or lesions noted. Internal Medicine: Result - Labs CBC & Chem 7: 11/15/16 00:48 11/15/16 00:48 Labs: Short CBC 11/15/16 Range/Units 00:48 WBC 6.5 (4.3-11.1) K/mcL Hgb 9.7 L (11.5-15.4) g/dL Hct 30.7 L (35.3-44.9) % Plt Count 95 L (140-400) K/mcL Neutrophils # 6.0 (1.6-8.9) K/mcL BMP 11/15/16 00:48 Sodium 138 Potassium 3.8 Chloride 102 Carbon Dioxide 22 BUN 39 H Creatinine 4.53 H Glucose 133 H Calcium 8.6 Cardiac Enzymes 11/15/16 11/15/16 Range/Units 00:48 05:56 Troponin I 0.02 0.03 (0-0.03) ng/mL - ABG Interpretation ABG results: PT/INR, D-dimer PT 12.0 Seconds (9.4-12.1) 11/14/16 18:20 Consult Discharge Plan - Plan Referrals: Yonatan Aleman DO [Primary Care Provider] - <Osmar Lomeli - Last Filed: 11/15/16 16:59> Date of Encounter: 11/15/16 - Constitutional Vitals: Temp Pulse Resp BP Pulse Ox 98.4 F 78 18 118/54 95 11/15/16 16:04 11/15/16 16:04 11/15/16 16:04 11/15/16 16:04 11/15/16 16:04 Internal Medicine: Result - Labs CBC & Chem 7: 11/15/16 00:48 11/15/16 00:48 Labs: Short CBC 11/15/16 Range/Units 00:48 WBC 6.5 (4.3-11.1) K/mcL Hgb 9.7 L (11.5-15.4) g/dL Hct 30.7 L (35.3-44.9) % Plt Count 95 L (140-400) K/mcL Neutrophils # 6.0 (1.6-8.9) K/mcL [facility] 11/15/16 00:48 Sodium 138 Potassium 3.8 Chloride 102 Carbon Dioxide 22 BUN 39 H Creatinine 4.53 H Glucose 133 H Calcium 8.6 Cardiac Enzymes 11/15/16 11/15/16 Range/Units 00:48 05:56 Troponin I 0.02 0.03 (0-0.03) ng/mL - ABG Interpretation ABG results: PT/INR, D-dimer PT 12.0 Seconds (9.4-12.1) 11/14/16 18:20 - Impressions Impressions Neck CTA 11/15/16 12:00 IMPRESSION: 1. No evidence of right-sided cervical mass near the right carotid area. The right common carotid artery and proximal internal carotid artery are tortuous and course laterally, and they correlate to the reported pulsatile mass over the right carotid area. 2. Approximately 30% right and 35% left proximal internal carotid artery due to atherosclerotic disease. D/ / 11/15/2016 14:13:06 Mague Pruitt MD / Luz Elena Hernández Interpreting Provider: Mague Pruitt MD - Attending Attestation I examined this patient and my medical decision-making was reviewed with the MARKETING SECRETARY/PA/Advanced Practice Nurse/Resident Physician. I agree with the documented findings, disposition and treatment plan as described except to the extent set forth below. D/C hctz, continue with azithromycin. Doubt pna. Allergic reaction to rocephin and levaquin. D/W patient.
[2016-11-15] MEDS: Nicotine 14 MG PATCH.TD24 TD SCH (16:20)
[2016-11-15] MEDS: *HR* Heparin 5,000 UNIT/ML VIAL SQ SCH (18:17)
--- NOTE | 2016-11-15 18:46 | Electrocardiograph Report ---
[address] [address] Test Date: 2016-11-14 Pat Name: Rita Orellana Department: 102 Room: 2A25 Gender: F Customer Service Rep: : 1950 Requested By: Arcadio Whitlock Order Number: [id number] Reading MD: Peg Colin Measurements Intervals [place] Rate: 81 P: 60 NC: 150 QRS: 59 QRSD: 101 T: 72 QT: 406 QTc: 443 Interpretive Statements SINUS RHYTHM POSSIBLE LEFT ATRIAL ENLARGEMENT ST DEVIATION AND MODERATE T-WAVE ABNORMALITY, CONSIDER LATERAL ISCHEMIA Electronically Signed On 11-15-2016 18:44:22 EDT by Peg Colin
[2016-11-16] MEDS: Ipratropium/Albuterol Neb 3 ML IH SCH ×2 (04:11→10:42)
[2016-11-16 04:47] LABS: Basophils % 0.1 %; Eosinophils # 0.1 K/mcL (0.0-0.6); Eosinophils % 0.5 %; Hematocrit 28.9 % (35.3-44.9); Immature Granulocytes % 1.7 % (0-4); Lymphocytes # 1.2 K/mcL (0.6-4.6); Lymphocytes % 12.3 %; Mean Corpuscular HGB Conc 31.1 g/dL (31.6-35.5); Mean Corpuscular Hemoglobin 30.6 pg (28.0-33.3); Mean Corpuscular Volume 98.3 fL (83.0-100.0); Mean Platelet Volume 9.7 fL (9.4-12.4); Monocytes # 0.4 K/mcL (0.0-1.3); Monocytes % 4.7 %; Neutrophils # 7.6 K/mcL (1.6-8.9); Red Blood Count 2.94 M/mcL (3.82-4.97); Red Cell Distribution Width 14.4 % (11.5-14.5); Segmented Neutrophils % 80.7 %
[2016-11-16 04:49] LABS: Platelet Count 89 K/mcL (140-400)
[2016-11-16 05:15] LABS: Albumin 2.5 g/dL (3.5-5.0); Albumin/Globulin Ratio 0.7 (1.1-2.2); Alkaline Phosphatase 57 Units/L (38-126); Aspartate Amino Transferase 15 Units/L (5-34); BUN/Creatinine Ratio 11 (6-26); Bilirubin,Total 0.3 mg/dL (0.2-1.2); Calcium 8.7 mg/dL (8.6-10.8); Carbon Dioxide 21 mEq/L (19-29); Chloride 104 mEq/L (98-109); Globulin 3.5 g/dL (2.4-3.5); Glucose 90 mg/dL (70-99); Osmolality,Calculated 310 (280-300); Potassium 4.2 mEq/L (3.5-4.5); Sodium 140 mEq/L (136-145); eGFR For African Americans 8 (> 60); eGFR For Non-African Americans 6 (> 60)
[2016-11-16 05:19] LABS: Alanine Aminotransferase < 6 Units/L (0-55); Blood Urea Nitrogen 69 mg/dL (7-20)
[2016-11-16] MEDS: *HR* Heparin 5,000 UNIT/ML VIAL SQ SCH (05:37)
[2016-11-16] MEDS: *HR* OxyCODONE Immed Rel 5 MG TABLET PO PRN ×2 (05:45→14:10)
[2016-11-16] MEDS: Vitamin B Complex/Vit C/Vit E 1 EACH TABLET PO SCH (08:11)
[2016-11-16] MEDS: Renal Vitamin 1 MG CAPSULE PO SCH (08:11)
[2016-11-16] MEDS: Nicotine 14 MG PATCH.TD24 TD SCH (08:11)
[2016-11-16] MEDS: Azithromycin 500 MG in D5% in Water 250 ML IVPB SCH (08:11)
--- NOTE | 2016-11-16 08:20 | Nephrology Progress Note ---
Date of Encounter: 11/16/16 Time of Encounter: 08:18 - Assessment and Plan (1) End stage renal disease Current Visit: No Status: Chronic Patient will undergo usual dialysis today. She is on Aranesp for anemia. She is on antibiotics for her right-sided pneumonia. (2) Pneumonia Current Visit: No Status: Acute Qualifiers: Pneumonia type: due to unspecified organism Laterality: left Lung location: lower lobe of lung Qualified Code(s): J18.1 - Lobar pneumonia, unspecified organism (3) COPD (chronic obstructive pulmonary disease) Current Visit: No Status: Chronic Qualifiers: COPD type: emphysema Emphysema type: unspecified Qualified Code(s): J43.9 - Emphysema, unspecified (4) Anemia, chronic renal failure Current Visit: No Status: Acute Qualifiers: Chronic kidney disease stage: stage 5 Qualified Code(s): N18.5 - Chronic kidney disease, stage 5; D63.1 - Anemia in chronic kidney disease Subjective Interval history: The patient reports she is feeling better overall. Her shortness of breath is improved. She still having what sounds like pleuritic chest pain. She is scheduled for her usual dialysis today. She did undergo a CTA of the neck that was unremarkable. Objective - Vital Signs Vital signs: Vital Signs Temp Pulse Resp BP Pulse Ox 11/16/16 08:03 98.0 F 87 17 157/75 95 11/16/16 05:02 98.3 F 80 18 147/68 96 11/16/16 00:46 98.5 F 76 18 125/63 95 11/15/16 22:40 16 98 11/15/16 20:58 98.2 F 80 18 128/56 92 11/15/16 16:04 98.4 F 78 18 118/54 95 11/15/16 15:33 18 94 11/15/16 10:41 98.6 F 90 18 115/57 94 11/15/16 10:06 18 97 Intake and Output 11/15/16 11/16/16 11/16/16 23:59 07:59 15:59 Intake Total 240 / 240 Output Total 0 / 0 Balance 240 / 240 Intake: Oral 240 / 240 Output: Urine 0 / 0 Other: Meal Dinner Percent of Meal Consumed 95% Weight 69.71 kg Patient Weight 11/16/16 23:59 Weight 69.71 kg - General Appearance Exam: Patient is alert and oriented. She is in no acute distress. Lungs sounds. No rales or wheezing or rhonchi. Heart regular rate and rhythm with a 2/6 soft ejection murmur. Abdomen is benign. There is no peripheral edema. There is a functioning AV fistula in the left arm. - Lab 11/16/16 03:42 11/16/16 03:42 Most recent lab results Calcium 8.7 mg/dL (8.6-10.8) 11/16/16 03:42 Consult Discharge Plan - Plan Referrals: Yonatan Aleman DO [Primary Care Provider] -
[2016-11-16] MEDS ORDERED: 0.9 % Sodium Chloride 250 ML IV SCH (08:30)
[2016-11-16] MEDS ORDERED: Levofloxacin 500 MG/100 ML 500 MG/100 ML BAG IVPB SCH (09:00)
[2016-11-16] MEDS: Budesonide/Formoterol 80/4.5 MDI IH SCH (10:42)
--- NOTE | 2016-11-16 11:26 | Discharge Summary ---
<Hudson Monroe - Last Filed: 11/16/16 11:35> Date of Encounter: 11/16/16 Time of Encounter: 11:18 - Discharge Diagnosis (1) Pneumonia Priority: Primary Status: Acute Qualifiers: Qualified Code(s): J18.9 - Pneumonia, unspecified organism (2) Acute and chronic respiratory failure Priority: Secondary Status: Acute Qualifiers: Qualified Code(s): J96.20 - Acute and chronic respiratory failure, unspecified whether with hypoxia or hypercapnia (3) CAD (coronary artery disease) Priority: Secondary Status: Chronic Qualifiers: Qualified Code(s): I25.10 - Atherosclerotic heart disease of [place] coronary artery without angina pectoris (4) End stage renal disease Priority: Secondary Status: Acute (5) Neck mass Priority: Secondary Status: Acute (6) COPD (chronic obstructive pulmonary disease) Priority: Secondary Status: Acute Qualifiers: Qualified Code(s): J44.9 - Chronic obstructive pulmonary disease, unspecified (7) Anemia Priority: Secondary Status: Acute Qualifiers: Qualified Code(s): D64.9 - Anemia, unspecified (8) Nonspecific ST-T wave electrocardiographic changes Priority: Secondary Status: Acute (9) DVT prophylaxis Priority: Secondary Status: Acute - Discharge Medications Prescriptions: Azithromycin [Zithromax] 250 mg PO DAILY 3 Days Lidocaine Patch [Lidoderm 5% patch] 1 each TP DAILY 7 Days Nicotine Patch [Nicoderm] 14 mg TD DAILY 30 Days Home Medications: Albuterol Sulfate [Albuterol Inhaler] 2 puff IH Q4H PRN 06/02/15 [History] Atorvastatin [Lipitor] 40 mg PO DAILY 06/02/15 [History] Citalopram Hydrobromide [Citalopram HBr] 20 mg PO QAM 06/02/15 [History] Levothyroxine [Synthroid] 200 mcg PO QAM 06/02/15 [History] Losartan Potassium 50 mg PO QAM 06/02/15 [History] Metoprolol Tartrate 25 mg PO BID 06/02/15 [History] Omeprazole 40 mg PO QAM 06/02/15 [History] Oxycodone HCl 10 mg PO Q6H PRN 06/02/15 [History] Aspirin 81 mg PO DAILY 09/22/15 [History] Docusate [Colace] 100 mg PO BID PRN 09/22/15 [History] B Complex with Vitamin C [Mary Ann-Bee with C] 1 each PO DAILY 02/22/16 [History] CloNIDine HCl 0.1 mg PO DAILY PRN 08/29/16 [History] Sevelamer [Renvela] 800 mg PO TIDWM 08/29/16 [History] Fluticasone/Salmeterol [Advair Hfa 115-21 Mcg Inhaler] 2 puff IH BID 11/14/16 [ History] Ipratropium/Albuterol Neb [Duoneb] 3 ml IH QID PRN 11/14/16 [History] NIFEdipine [Nifedipine ER] 90 mg PO DAILY 11/14/16 [History] Renal Vitamin [Renal Caps Softgel] 1 mg PO DAILY 11/14/16 [History] Azithromycin [Zithromax] 250 mg PO DAILY 3 Days 11/16/16 [Rx] Darbepoetin [Aranesp] 60 mcg SQ QWEEK syringe 11/16/16 [Rx] Lidocaine Patch [Lidoderm 5% patch] 1 each TP DAILY 7 Days 11/16/16 [Rx] Nicotine Patch [Nicoderm] 14 mg TD DAILY 30 Days 11/16/16 [Rx] Allergies/Adverse Reactions: Allergies ceftriaxone [From Rocephin] Allergy (Verified 11/15/16 03:10) Hives levofloxacin [From Levaquin] Allergy (Verified 11/14/16 21:21) Hives Procedures/tests Complete & Pending: Procedures Performed prior 72 hours Category Date Time Status CT angio neck [CT] Routine Cat Scan 11/15/16 12:00 Completed EKG [ECG 12 lead ECG] [ECG] AM 0600 Y 11/15/16 06:00 Ordered Date of admission: 11/14/16 22:44 Primary care physician: Yonatan Aleman, Consults: 11/14/16 22:56 Consult to Nephrology [CONS] Routine Consulting Provider: [facility] Jesus HAMMOND Reason for Consult: dialysis-established patient M,W,F Time Notified: 22:57 Call Completed: No 11/16/16 08:30 Consult to Dialysis [CONS] ONCE Discharging clinician: Hudson Monroe Anticipated date of discharge: 11/16/16 - Patient Status Disposition: Home, Self-Care Condition: Good Functional capacity at discharge: independent ambulation Overall status at discharge: patient is progressing back to baseline - Discharge Instructions Follow Up With: Yonatan Aleman DO [Primary Care Provider] - 12/01/16 9:30 am - Diet and Activity Activity: increase activity as tolerated Diet: advance to your usual diet Hospital course: Ms. Orellana is a 66 year old female who was admitted with dyspnea and pleuritic chest pains. she was initially treated with levoquen and Rocephen but developed rash to these. Upon review of her CXR and that the patient was not febrile or had leukocytosis we decided to treat her with Azithromycin. She has improved clinically. she is afebrile and has no leukocytosis. she is on her home dose of oxygen. she did undergo evaluation of the neck with a CT angiogram because there appeared to be a pulsatile mass on exam on the right. CTa showed a very tortuous carotid artery but no other abnormality. Today she is back to her baseline. We will discharge her after dialysis today. Will complete a five day course of azithromycin. Patient voices back her understanding and agreement to the above plan. - Time Spent with Patient Total time spent providing and/or coordinating discharge services: - Constitutional Vitals: Temp Pulse Resp BP Pulse Ox 98.0 F 87 17 157/75 95 11/16/16 08:03 11/16/16 08:03 11/16/16 08:03 11/16/16 08:03 11/16/16 08:03 General appearance: Present: A&O X 3 - Head Head exam: Present: atraumatic, normocephalic - Eye Eye exam: Present: PERRL, conjuntiva pink, sclera anicteric Pupils: Present: PERRL - Neck Neck exam general surgery: Present: supple, trachea midline. Absent: lymphadenopathy Additional comments: carotid bruits present on the right. - Respiratory Respiratory exam: Present: CTAB. Absent: accessory muscle use, rales, rhonchi, wheezes - Cardiovascular Cardiovascular exam: Present: RRR, +S1, +S2. Absent: diastolic murmur, gallop, rubs, systolic murmur - GI/Abdominal GI/Abdominal exam: Present: normal bowel sounds, soft, no peritoneal signs. Absent: distended, tenderness - Extremities Exam Extremities exam: Present: warm, radial pulses palpable and symetrical. Absent : calf tenderness, cyanotic, pedal edema - Skin Skin exam: Present: dry, intact <Osmar Lomeli - Last Filed: 11/16/16 15:16> Date of Encounter: 11/16/16 Procedures/tests Complete & Pending: Procedures Performed prior 72 hours Category Date Time Status CT angio neck [CT] Routine Cat Scan 11/15/16 12:00 Completed EKG [ECG 12 lead ECG] [ECG] AM 0600 Y 11/15/16 06:00 Completed Date of admission: 11/14/16 22:44 Primary care physician: Yonatan Aleman, Consults: 11/14/16 22:56 Consult to Nephrology [CONS] Routine Consulting Provider: [facility] Jesus HAMMOND Reason for Consult: dialysis-established patient M,W,F Time Notified: 22:57 Call Completed: No 11/16/16 08:30 Consult to Dialysis [CONS] ONCE Hospital course: Ms. Orellana is a 66 year old female - Time Spent with Patient Total time spent providing and/or coordinating discharge services: - Constitutional Vitals: Temp Pulse Resp BP Pulse Ox 98.0 F 87 17 157/75 95 11/16/16 08:03 11/16/16 08:03 11/16/16 08:03 11/16/16 08:03 11/16/16 08:03 - Attending Attestation I examined this patient and my medical decision-making was reviewed with the SENIOR CLINICAL SAS PROGRAMMER/PA/Advanced Practice Nurse/Resident Physician. I agree with the documented findings, disposition and treatment plan as described except to the extent set forth below. D/C on azithromycin. HD as per nephrology. D/W patient.
[2016-11-16] MEDS ORDERED: 0.9 % Sodium Chloride 2,000 ML ONE (12:55)
[2016-11-16] MEDS: NIFEdipine XL (24 HR) 30 MG TAB.ER.24 PO SCH (14:05)
[2016-11-16] MEDS: Aspirin 81 MG TAB.CHEW PO SCH (14:05)
[2016-11-16 19:34] VITALS: BP 133/78
--- NOTE | 2016-11-16 19:39 | Electrocardiograph Report ---
[place] [address] Test Date: 2016-11-15 Pat Name: Rita Orellana Department: 112 Room: 2A25 Gender: F Drawing Hand: OLEGARIO : 1950 Requested By: Melisa Shah Order Number: [id number] Reading MD: Indigo Pedro Measurements Intervals [place] Rate: 73 P: 53 OR: 164 QRS: 50 QRSD: 103 T: 96 QT: 477 QTc: 503 Interpretive Statements SINUS RHYTHM ARTIFACT Electronically Signed On 11-16-2016 19:37:26 EDT by Indigo Pedro
== END 2016-11-16 14:28 | disposition home or self-care (01) | DRG 190 ==
LOC: EMEROO 17:34 → 2ANU 17:34 → SUATTDRO 22:44
PROVIDERS: ADMIT Internal Medicine; ATTEND Internal Medicine

== ENCOUNTER 2016-12-16 17:11 | Inpatient (IN) ==
--- NOTE | 2016-12-16 18:58 | Internal Med History&Physical ---
Date of Encounter: 12/16/16 Time of Encounter: 18:58 Assessment and Plan (1) Acute encephalopathy Current visit: Yes Status: Acute patient a history of ESRD not been compliant with her HD schedule comes in after limited HD today and found to have a pneumonia, the etiology of her encephalopathy is thus multifactorial, we will treat underlying cause whilst doing neuro checks Qshift, will get nephro to dialyze her (2) Pneumonia Current visit: Yes Status: Acute patient comes in with prodrome ongoing for a couple of days, limited history but found to be lethargic with an infiltrate on diagnostic imaging concerning for pneumonia, we will admit for Abs pending microbiology results Qualifiers: Pneumonia type: due to unspecified organism Laterality: left Lung location: lower lobe of lung Qualified Code(s): J18.1 - Lobar pneumonia, unspecified organism (3) COPD (chronic obstructive pulmonary disease) Current visit: Yes Status: Chronic will continue nebs Qualifiers: COPD type: chronic bronchitis Chronic bronchitis type: simple Qualified Code(s): J41.0 - Simple chronic bronchitis (4) ESRD (end stage renal disease) on dialysis Current visit: Yes Status: Chronic her schedule is MWF, mossed both Monday and Monday, had limited HD on Monday , we will get nephrology to do inpatient HD (5) Hypertension Current visit: Yes Status: Chronic will continue her home medications with BP monitoring Qualifiers: Hypertension type: essential hypertension Qualified Code(s): I10 - Essential (primary) hypertension (6) Hypothyroidism Current visit: Yes Status: Chronic will continue home dose of synthroid Qualifiers: Hypothyroidism type: acquired Qualified Code(s): E03.9 - Hypothyroidism, unspecified Internal Medicine - H&P: HPI Chief complaint: lethargy Admitted From: Hospital to Hospital Transfer Plans for Post Hospital Care: Home History of present illness: Ms. Orellana is a 66 year old female with a history of multiple co-morbidities including ESRD on HD MWF was transferred here from [facility] for pneumonia with altered mental status. She was in her usual state of health until earlier in the week when she began to fell unwell with nausea, generalized weakness, cough and fatigue. Due to her symptoms she missed her regular HD on both Monday and Monday but was able to make it today. Whilst in HD she became lethargic and was difficult to arouse so she was sent to [place] [facility] where she was found to have pneumonia and was transferred here for further evaluation and management. She denies fever, chills, but had nausea and vomiting. Patient was lethargic so most of the limited history was obtained from family at bedside and ER charts. Past Med Surg Social Fam HX - Past Medical History Medical history: arthritis, dialysis, hyperlipidemia, hypertension, renal disease, thyroid disease Psychiatric history: anxiety, depression - Past Surgical History Surgical History: coronary bypass (CABG), other (Left arm dialysis shunt) - Social History Smoking Status: Current every day smoker Smokeless Tobacco Status: No Alcohol use: none Drug use: none - Family History Brother Family Member Ethnicity: Unknown Hx Family Cardiac Disorders: Yes (one brother passed sudden heart attack) Mother Living Status: Hx Family Cancer: Yes (lung cancer) Father Living Status: Hx Family Cancer: Yes (lung cancer) Internal Medicine - H&P: Meds Albuterol Sulfate [Albuterol Inhaler] 2 puff IH Q4H PRN 06/02/15 [History] Atorvastatin [Lipitor] 40 mg PO HS 06/02/15 [History] Citalopram Hydrobromide [Citalopram HBr] 20 mg PO QAM 06/02/15 [History] Levothyroxine [Synthroid] 200 mcg PO QAM 06/02/15 [History] Losartan Potassium 50 mg PO QAM 06/02/15 [History] Metoprolol Tartrate 25 mg PO BID 06/02/15 [History] Omeprazole 40 mg PO QAM 06/02/15 [History] Oxycodone HCl 10 mg PO Q6H PRN 06/02/15 [History] Aspirin 81 mg PO DAILY 09/22/15 [History] Docusate [Colace] 100 mg PO BID PRN 09/22/15 [History] B Complex with Vitamin C [Mary Ann-Bee with C] 1 each PO DAILY 02/22/16 [History] Sevelamer [Renvela] 800 mg PO TIDWM 08/29/16 [History] cloNIDine HCl [CloNIDine HCl] 0.1 mg PO DAILY PRN 08/29/16 [History] Fluticasone/Salmeterol [Advair Hfa 115-21 Mcg Inhaler] 2 puff IH BID 11/14/16 [ History] Ipratropium/Albuterol Neb [Duoneb] 3 ml IH QID PRN 11/14/16 [History] NIFEdipine [Nifedipine ER] 90 mg PO DAILY 11/14/16 [History] Renal Vitamin [Renal Caps Softgel] 1 mg PO DAILY 11/14/16 [History] Lidocaine Patch [Lidoderm 5% patch] 1 each TP DAILY 7 Days 11/16/16 [Rx] Allergies ceftriaxone [From Rocephin] Allergy (Verified 11/15/16 03:10) Hives levofloxacin [From Levaquin] Allergy (Verified 11/14/16 21:21) Hives ROS unobtainable: due to mental status All Systems PM: A 10-system review of systems was performed and is negative for pertinent findings except as documented above in the HPI. - Constitutional Vitals: General appearance: Adult female, lying in bed, lethargic and not communicating , though awake, looks unwell - Head Head exam: atraumatic, normocephalic, normal inspection - Eye Eye exam: PERRL, EOMI. Absent: scleral icterus, conjunctival injection - ENT ENT exam: normal exam, normal oropharynx, mucous membranes moist - Neck Neck exam: normal inspection, full ROM, trachea midline - Respiratory Respiratory exam: diminished breath sounds, bilaterally mostly at the lug bases , no crackles or wheeze, heard - Cardiovascular Cardiovascular exam: regular rate, normal rhythm, normal heart sounds. Absent: tachycardia, no ankle edema - Abdominal Exam Abdominal exam: Present: soft, Non-Tender, normal bowel sounds. Absent: tenderness, distention, guarding, rebound, rigidity - Extremities Exam Extremities exam: Present: normal inspection, full ROM, normal capillary refill , LUE AVF with thrill and bruit( bandaged) Absent: tenderness, pedal edema - Neurological Exam Neurological exam: Awake but lethargic, no gross neuro deficits observed - Psychiatric Psychiatric exam: depressed mood - Skin Skin exam: bilateral upper extremity small patches of ecchymoses Internal Med - H&P Results - Labs CBC & Chem 7: 12/17/16 02:36 12/17/16 02:36 - EKG Data -: EKG Interpreted by Myself - Diagnostic Studies Chest x-ray Status: image reviewed by me
[2016-12-16] MEDS ORDERED: Naloxone 0.4 MG/ML INJ IVP PRN (19:28)
[2016-12-16] MEDS ORDERED: Levofloxacin 750 MG/150 ML 750 MG/150 ML BAG IVPB SCH (20:00)
[2016-12-17] MEDS: *HR* Heparin 5,000 UNIT/ML VIAL SQ SCH ×4 (02:01→23:43)
[2016-12-17 03:25] LABS: Hematocrit 29.2 % (35.3-44.9); Hemoglobin 9.2 g/dL (11.5-15.4); Mean Corpuscular HGB Conc 31.5 g/dL (31.6-35.5); Mean Corpuscular Hemoglobin 31.4 pg (28.0-33.3); Mean Corpuscular Volume 99.7 fL (83.0-100.0); Mean Platelet Volume 9.8 fL (9.4-12.4); Red Blood Count 2.93 M/mcL (3.82-4.97); Red Cell Distribution Width 14.7 % (11.5-14.5)
[2016-12-17 03:27] LABS: Platelet Count 76 K/mcL (140-400)
[2016-12-17 03:36] LABS: Calcium 8.6 mg/dL (8.6-10.8); Magnesium 1.6 mg/dL (1.6-2.6); Potassium 4.9 mEq/L (3.5-4.5)
[2016-12-17] MEDS ORDERED: *HR* OxyCODONE Immed Rel 5 MG TABLET PO STA (06:07)
[2016-12-17] MEDS: NIFEdipine XL (24 HR) 30 MG TAB.ER.24 PO SCH (07:59)
[2016-12-17] MEDS ORDERED: Albuterol 2.5 MG/3 ML NEBULIZER IH ONE (08:13)
--- NOTE | 2016-12-17 08:55 | Nephrology Consult Note ---
Date of Encounter: 12/17/16 Time of Encounter: 08:45 Assessment and Plan (1) ESRD (end stage renal disease) on dialysis Current Visit: Yes Status: Chronic PNA. Mental status improved. ESRD, no indication for HD today. Will continue to follow. History of Present Illness - Reason for Consult end stage renal disease - History of Present Illness Ms. Orellana is a 66 year olf female with ESRD who dialyzes at [place]. Last dialysisyesterday, according to staff completed entire treatment. Ms. Orellana was lethargic at end of treatment and transferred to [facility] and subsequently transferred to [facility] for mental status changes and CXR concerning for pneumonia. At consult today, Ms. Orellana states she fatigue, weakness, cough and nausea and missed HD on Monday and Monday. Today she has eaten a partial breakfast, she states she feels better, john PARKS. She is A/O x3 Past Med Surg Social Fam HX - Past Medical History Medical history: arthritis, dialysis, hyperlipidemia, hypertension, renal disease, thyroid disease Psychiatric history: anxiety, depression - Past Surgical History Surgical History: coronary bypass (CABG), other (Left arm dialysis shunt) - Social History Smoking Status: Current every day smoker Smokeless Tobacco Status: No Alcohol use: none Drug use: none - Family History Brother Family Member Ethnicity: Unknown Hx Family Cardiac Disorders: Yes (one brother passed sudden heart attack) Mother Living Status: Hx Family Cancer: Yes (lung cancer) Father Living Status: Hx Family Cancer: Yes (lung cancer) Medications and Allergies Albuterol Sulfate [Albuterol Inhaler] 2 puff IH Q4H PRN 06/02/15 [History] Atorvastatin [Lipitor] 40 mg PO HS 06/02/15 [History] Citalopram Hydrobromide [Citalopram HBr] 20 mg PO QAM 06/02/15 [History] Levothyroxine [Synthroid] 200 mcg PO QAM 06/02/15 [History] Losartan Potassium 50 mg PO QAM 06/02/15 [History] Metoprolol Tartrate 25 mg PO BID 06/02/15 [History] Omeprazole 40 mg PO QAM 06/02/15 [History] Oxycodone HCl 10 mg PO Q6H PRN 06/02/15 [History] Aspirin 81 mg PO DAILY 09/22/15 [History] Docusate [Colace] 100 mg PO BID PRN 09/22/15 [History] B Complex with Vitamin C [Mary Ann-Bee with C] 1 each PO DAILY 02/22/16 [History] Sevelamer [Renvela] 800 mg PO TIDWM 08/29/16 [History] cloNIDine HCl [CloNIDine HCl] 0.1 mg PO DAILY PRN 08/29/16 [History] Fluticasone/Salmeterol [Advair Hfa 115-21 Mcg Inhaler] 2 puff IH BID 11/14/16 [ History] Ipratropium/Albuterol Neb [Duoneb] 3 ml IH QID PRN 11/14/16 [History] NIFEdipine [Nifedipine ER] 90 mg PO DAILY 11/14/16 [History] Renal Vitamin [Renal Caps Softgel] 1 mg PO DAILY 11/14/16 [History] Lidocaine Patch [Lidoderm 5% patch] 1 each TP DAILY 7 Days 11/16/16 [Rx] Allergies ceftriaxone [From Rocephin] Allergy (Verified 11/15/16 03:10) Hives levofloxacin [From Levaquin] Allergy (Verified 11/14/16 21:21) Hives Review of Systems All Systems: reviewed and no additional remarkable complaints except as stated Exam - Vital Signs Vital signs: Initial Vital Signs Temp Pulse Resp BP Pulse Ox 98.3 F 68 16 176/74 97 12/16/16 19:33 12/16/16 19:33 12/16/16 19:33 12/16/16 19:33 12/16/16 19:33 Vital Signs - Last 8 Hours Temp Pulse Resp BP Pulse Ox 12/17/16 06:58 98.6 F 74 18 129/65 97 Intake and Output 12/16/16 12/17/16 12/17/16 23:59 07:59 15:59 Other: Weight 71.1 kg Blood Glucose* 94 - General Appearance General appearance: well-developed, well-nourished, appears started age EENT: mucous membranes moist Neck: no JVD Respiratory: rhonchi Cardiology: no edema, regular rate, regular rhythm Gastrointestinal: normoactive bowel sounds, no tenderness Integumentary: warm and dry Neurologic: alert and oriented x3 Psychiatric: mood/affect appropriate, cooperative Results - Lab Results 12/17/16 02:36 12/17/16 02:36 Most recent lab results Calcium 8.6 mg/dL (8.6-10.8) 12/17/16 02:36 Phosphorus 5.0 mg/dL (2.3-4.7) H 12/17/16 02:36 Magnesium 1.6 mg/dL (1.6-2.6) 12/17/16 02:36 Consult Discharge Plan - Plan Referrals: Yonatan Aleman DO [Primary Care Provider] -
--- NOTE | 2016-12-17 12:31 | Internal Med Progress Note ---
Date of Encounter: 12/17/16 Time of Encounter: 12:29 - Assessment and plan (1) Pneumonia Current Visit: Yes Status: Acute Assessment and plan: cntinue with levaquin follow cultures. Qualifiers: Pneumonia type: due to unspecified organism Laterality: left Lung location: lower lobe of lung Qualified Code(s): J18.1 - Lobar pneumonia, unspecified organism (2) Acute encephalopathy Current Visit: Yes Status: Acute Assessment and plan: resolved. (3) COPD (chronic obstructive pulmonary disease) Current Visit: Yes Status: Chronic Assessment and plan: not in exacearbation. Qualifiers: COPD type: chronic bronchitis Chronic bronchitis type: simple Qualified Code(s): J41.0 - Simple chronic bronchitis (4) ESRD (end stage renal disease) on dialysis Current Visit: Yes Status: Chronic Assessment and plan: hd as per nephrology. - Subjective Interval history: 1st encunte rwith the patient. feels better, alert, oreitned, mild cogh. - Constitutional Vitals: Temp Pulse Resp BP Pulse Ox 98.3 F 63 18 116/62 90 12/17/16 11:00 12/17/16 11:00 12/17/16 11:00 12/17/16 11:00 12/17/16 11:00 General appearance: Present: A&O X 3, pleasant, no acute distress - Head Head exam: Present: atraumatic, normocephalic - Eye Eye exam: Present: PERRL, conjuntiva pink, sclera anicteric Pupils: Present: PERRL - Neck Neck exam general surgery: Present: supple, trachea midline. Absent: lymphadenopathy - Respiratory Respiratory exam: Present: CTAB. Absent: accessory muscle use, rales, rhonchi, wheezes - Cardiovascular Cardiovascular exam: Present: RRR, +S1, +S2. Absent: diastolic murmur, gallop, rubs, systolic murmur - GI/Abdominal GI/Abdominal exam: Present: normal bowel sounds, soft, no peritoneal signs. Absent: distended, tenderness - Extremities Exam Extremities exam: Present: warm, radial pulses palpable and symetrical. Absent : calf tenderness, cyanotic, pedal edema - Neurological Exam Neurological exam: Present: CN II-XII intact, oriented X3, no focal deficits. Absent: pronater drift, facial droop, speech deficit - Skin Skin exam: Present: dry, intact Internal Medicine: Result - Labs CBC & Chem 7: 12/17/16 02:36 12/17/16 02:36 Labs: Short CBC 12/17/16 Range/Units 02:36 WBC 7.7 (4.3-11.1) K/mcL Hgb 9.2 L (11.5-15.4) g/dL Hct 29.2 L (35.3-44.9) % Plt Count 76 L (140-400) K/mcL [facility] 12/17/16 02:36 Sodium 136 Potassium 4.9 H D Chloride 100 Carbon Dioxide 27 BUN 21 H Creatinine 4.87 H Glucose 70 Calcium 8.6 Consult Discharge Plan - Plan Referrals: Yonatan Aleman DO [Primary Care Provider] -
[2016-12-18] MEDS: *HR* OxyCODONE Immed Rel 5 MG TABLET PO PRN ×2 (03:57→16:07)
[2016-12-18 04:18] LABS: Mean Corpuscular Hemoglobin 30.7 pg (28.0-33.3); Mean Corpuscular Volume 98.4 fL (83.0-100.0); Red Cell Distribution Width 14.5 % (11.5-14.5)
[2016-12-18 04:19] LABS: Basophils % 0.5 %; Eosinophils # 0.2 K/mcL (0.0-0.6); Eosinophils % 2.2 %; Hematocrit 30.4 % (35.3-44.9); Hemoglobin 9.5 g/dL (11.5-15.4); Immature Granulocytes % 2.3 % (0-4); Lymphocytes # 1.5 K/mcL (0.6-4.6); Lymphocytes % 17.8 %; Mean Corpuscular HGB Conc 31.3 g/dL (31.6-35.5); Mean Platelet Volume 9.7 fL (9.4-12.4); Monocytes # 0.8 K/mcL (0.0-1.3); Monocytes % 9.4 %; Platelet Count 105 K/mcL (140-400); Red Blood Count 3.09 M/mcL (3.82-4.97); Segmented Neutrophils % 67.8 %
[2016-12-18 04:22] LABS: Calcium 9.1 mg/dL (8.6-10.8); Potassium 4.3 mEq/L (3.5-4.5)
[2016-12-18 04:29] LABS: Neutrophils # 5.6 K/mcL (1.6-8.9)
[2016-12-18] MEDS: *HR* Heparin 5,000 UNIT/ML VIAL SQ SCH ×2 (08:01→16:07)
[2016-12-18] MEDS: NIFEdipine XL (24 HR) 30 MG TAB.ER.24 PO SCH (08:01)
--- NOTE | 2016-12-18 08:30 | Nephrology Progress Note ---
Date of Encounter: 12/18/16 Time of Encounter: 08:20 - Assessment and Plan (1) ESRD (end stage renal disease) on dialysis Current Visit: Yes Status: Chronic PNA. Mental status improved. Thinking related to pain medication overuse. ESRD, no indication for HD today. If discharged home, will dialyze in [place] tomorrow. Subjective Interval history: Sitting on edge of bed, eating breakfast. States breathing without difficulty. This is the most alert I have seen her including dialysis rounds outside. Asked about her pain medication use at home. She states has receieved far less in hospital than she takes at home. "I have to ask for them here." Objective - Vital Signs Vital signs: Vital Signs Temp Pulse Resp BP Pulse Ox 12/18/16 07:01 98.2 F 64 18 145/71 97 12/18/16 03:40 97.9 F 76 18 148/70 90 12/17/16 23:17 98.5 F 62 16 131/52 94 12/17/16 20:36 97 12/17/16 19:36 98.4 F 71 18 125/56 95 12/17/16 15:43 98.4 F 70 18 121/57 95 12/17/16 11:00 98.3 F 63 18 116/62 90 12/17/16 08:55 18 95 Intake and Output 12/17/16 12/18/16 12/18/16 23:59 07:59 15:59 Intake Total 480 / 480 Output Total 800 / 800 Balance 480 / 480 -800 / -800 Intake: Oral 480 / 480 Output: Urine 800 / 800 Other: Meal Dinner Percent of Meal Consumed 80% Weight 68.096 kg Patient Weight 12/18/16 23:59 Weight 68.096 kg - General Appearance General appearance: Present: well-developed, well-nourished, appears started age EENT: Present: mucous membranes moist Neck: Present: no JVD Respiratory: Present: clear Cardiology: Present: no edema, regular rate, regular rhythm Gastrointestinal: Present: normoactive bowel sounds, no tenderness Integumentary: Present: warm and dry Psychiatric: Present: mood/affect appropriate, cooperative - Lab 12/18/16 03:51 12/18/16 03:51 Most recent lab results Calcium 9.1 mg/dL (8.6-10.8) 12/18/16 03:51 Phosphorus 5.0 mg/dL (2.3-4.7) H 12/17/16 02:36 Magnesium 1.6 mg/dL (1.6-2.6) 12/17/16 02:36 Consult Discharge Plan - Plan Referrals: Yonatan Aleman DO [Primary Care Provider] - (web request sent on 12/17/16)
--- NOTE | 2016-12-18 13:37 | Internal Med Progress Note ---
Date of Encounter: 12/18/16 Time of Encounter: 10:35 - Assessment and plan (1) Pneumonia Current Visit: Yes Status: Acute Assessment and plan: continue with levaquin testing positive for strep pneumo. possible d/c tomorrow after HD, discussed with patient. Qualifiers: Pneumonia type: due to unspecified organism Laterality: left Lung location: lower lobe of lung Qualified Code(s): J18.1 - Lobar pneumonia, unspecified organism (2) Acute encephalopathy Current Visit: Yes Status: Acute Assessment and plan: resolved. (3) COPD (chronic obstructive pulmonary disease) Current Visit: Yes Status: Chronic Qualifiers: COPD type: chronic bronchitis Chronic bronchitis type: simple Qualified Code(s): J41.0 - Simple chronic bronchitis (4) ESRD (end stage renal disease) on dialysis Current Visit: Yes Status: Chronic - Subjective Interval history: feels better, alert, oreitned, complains of prodctive cough. - Constitutional Vitals: Temp Pulse Resp BP Pulse Ox 98.2 F 58 18 115/50 96 12/18/16 11:11 12/18/16 11:11 12/18/16 11:11 12/18/16 11:11 12/18/16 11:11 General appearance: Present: A&O X 3, pleasant, no acute distress - Head Head exam: Present: atraumatic, normocephalic - Eye Eye exam: Present: PERRL, conjuntiva pink, sclera anicteric Pupils: Present: PERRL - Neck Neck exam general surgery: Present: supple, trachea midline. Absent: lymphadenopathy - Respiratory Respiratory exam: Present: decreased breath sounds, rhonchi. Absent: accessory muscle use, rales, wheezes - Cardiovascular Cardiovascular exam: Present: RRR, +S1, +S2. Absent: diastolic murmur, gallop, rubs, systolic murmur - GI/Abdominal GI/Abdominal exam: Present: normal bowel sounds, soft, no peritoneal signs. Absent: distended, tenderness - Extremities Exam Extremities exam: Present: warm, radial pulses palpable and symetrical. Absent : calf tenderness, cyanotic, pedal edema - Neurological Exam Neurological exam: Present: CN II-XII intact, oriented X3, no focal deficits. Absent: pronater drift, facial droop, speech deficit - Skin Skin exam: Present: dry, intact Internal Medicine: Result - Labs CBC & Chem 7: 12/18/16 03:51 12/18/16 03:51 Labs: Short CBC 12/18/16 Range/Units 03:51 WBC 8.2 (4.3-11.1) K/mcL Hgb 9.5 L (11.5-15.4) g/dL Hct 30.4 L (35.3-44.9) % Plt Count 105 L (140-400) K/mcL Neutrophils # 5.6 (1.6-8.9) K/mcL BMP 12/18/16 03:51 Sodium 139 Potassium 4.3 Chloride 102 Carbon Dioxide 25 BUN 29 H Creatinine 6.67 H Glucose 91 Calcium 9.1 Consult Discharge Plan - Plan Referrals: Yonatan Aleman DO [Primary Care Provider] - (web request sent on 12/17/16)
[2016-12-18] MEDS ORDERED: Levofloxacin 500 MG/100 ML 500 MG/100 ML BAG IVPB SCH (20:00)
[2016-12-19] MEDS: *HR* Heparin 5,000 UNIT/ML VIAL SQ SCH ×2 (00:38→06:12)
[2016-12-19 04:29] LABS: Basophils % 0.5 %; Eosinophils # 0.3 K/mcL (0.0-0.6); Hematocrit 28.5 % (35.3-44.9); Immature Granulocytes % 3.4 % (0-4); Lymphocytes # 1.6 K/mcL (0.6-4.6); Lymphocytes % 18.9 %; Mean Corpuscular HGB Conc 31.6 g/dL (31.6-35.5); Mean Corpuscular Hemoglobin 31.3 pg (28.0-33.3); Mean Platelet Volume 10.1 fL (9.4-12.4); Monocytes # 0.9 K/mcL (0.0-1.3); Monocytes % 9.8 %; Neutrophils # 5.6 K/mcL (1.6-8.9); Platelet Count 104 K/mcL (140-400); Red Blood Count 2.88 M/mcL (3.82-4.97); Red Cell Distribution Width 14.6 % (11.5-14.5); Segmented Neutrophils % 64.4 %
[2016-12-19 04:43] LABS: Calcium 8.9 mg/dL (8.6-10.8); Potassium 4.3 mEq/L (3.5-4.5)
[2016-12-19] MEDS: NIFEdipine XL (24 HR) 30 MG TAB.ER.24 PO SCH (08:01)
[2016-12-19] MEDS ORDERED: 0.9 % Sodium Chloride 250 ML IVC PRN (08:03)
--- NOTE | 2016-12-19 08:03 | Nephrology Progress Note ---
Date of Encounter: 12/19/16 Time of Encounter: 08:01 - Assessment and Plan (1) End stage renal disease Current Visit: No Status: Chronic The patient will undergo dialysis today. Her overall status is improved. I suspect she will be discharged home following dialysis. (2) Altered mental status Current Visit: No Status: Acute Qualifiers: Altered mental status type: transient alteration of awareness Qualified Code(s): R40.4 - Transient alteration of awareness (3) Pneumonia Current Visit: Yes Status: Acute Qualifiers: Pneumonia type: due to unspecified organism Laterality: left Lung location: lower lobe of lung Qualified Code(s): J18.1 - Lobar pneumonia, unspecified organism Subjective Interval history: The patient reports she is feeling better. Mental status is at baseline. She had some nausea and vomiting yesterday but none today. Her shortness of breath is improved. Her cough is improving as well. She will undergo her usual dialysis today. Objective - Vital Signs Vital signs: Vital Signs Temp Pulse Resp BP Pulse Ox 12/19/16 07:09 98.5 F 65 18 139/68 95 12/19/16 04:21 97.7 F 71 18 146/67 94 12/18/16 23:52 98.6 F 66 18 139/46 95 12/18/16 22:29 98 12/18/16 19:16 98.3 F 71 18 114/67 94 12/18/16 16:16 91 12/18/16 15:40 98.4 F 61 18 112/64 91 12/18/16 11:11 98.2 F 58 18 115/50 96 12/18/16 08:20 97 Intake and Output 12/18/16 12/19/16 12/19/16 23:59 07:59 15:59 Other: # Voids 1 Weight 69.7 kg Patient Weight 12/19/16 23:59 Weight 69.7 kg - General Appearance Exam: Patient is alert and oriented. She is in no acute distress. Lungs diminished breath sounds. Heart regular rhythm. Abdomen is benign. There is no peripheral edema. There is a functioning AV fistula in the left arm. - Lab 12/19/16 03:03 12/19/16 03:03 Most recent lab results Calcium 8.9 mg/dL (8.6-10.8) 12/19/16 03:03 Phosphorus 5.0 mg/dL (2.3-4.7) H 12/17/16 02:36 Magnesium 1.6 mg/dL (1.6-2.6) 12/17/16 02:36 Consult Discharge Plan - Plan Referrals: Yonatan Aleman DO [Primary Care Provider] - (web request sent on 12/17/16)
--- NOTE | 2016-12-19 11:01 | Discharge Summary ---
Date of Encounter: 12/19/16 Time of Encounter: 10:58 - Discharge Diagnosis (1) Pneumonia Priority: Primary Status: Acute Qualifiers: Pneumonia type: due to unspecified organism Laterality: left Lung location: lower lobe of lung Qualified Code(s): J18.1 - Lobar pneumonia, unspecified organism (2) Acute encephalopathy Priority: Secondary Status: Acute (3) COPD (chronic obstructive pulmonary disease) Priority: Secondary Status: Chronic Qualifiers: COPD type: chronic bronchitis Chronic bronchitis type: simple Qualified Code(s): J41.0 - Simple chronic bronchitis (4) ESRD (end stage renal disease) on dialysis Priority: Secondary Status: Chronic - Discharge Medications Prescriptions: Levofloxacin [Levaquin] 500 mg PO Q48H #2 tablet Home Medications: Albuterol Sulfate [Albuterol Inhaler] 2 puff IH Q4H PRN 06/02/15 [History] Atorvastatin [Lipitor] 40 mg PO HS 06/02/15 [History] Citalopram Hydrobromide [Citalopram HBr] 20 mg PO QAM 06/02/15 [History] Levothyroxine [Synthroid] 200 mcg PO QAM 06/02/15 [History] Losartan Potassium 50 mg PO QAM 06/02/15 [History] Metoprolol Tartrate 25 mg PO BID 06/02/15 [History] Omeprazole 40 mg PO QAM 06/02/15 [History] Oxycodone HCl 10 mg PO Q6H PRN 06/02/15 [History] Aspirin 81 mg PO DAILY 09/22/15 [History] Docusate [Colace] 100 mg PO BID PRN 09/22/15 [History] B Complex with Vitamin C [Mary Ann-Bee with C] 1 each PO DAILY 02/22/16 [History] Sevelamer [Renvela] 800 mg PO TIDWM 08/29/16 [History] cloNIDine HCl [CloNIDine HCl] 0.1 mg PO DAILY PRN 08/29/16 [History] Fluticasone/Salmeterol [Advair Hfa 115-21 Mcg Inhaler] 2 puff IH BID 11/14/16 [ History] Ipratropium/Albuterol Neb [Duoneb] 3 ml IH QID PRN 11/14/16 [History] NIFEdipine [Nifedipine ER] 90 mg PO DAILY 11/14/16 [History] Renal Vitamin [Renal Caps Softgel] 1 mg PO DAILY 11/14/16 [History] Lidocaine Patch [Lidoderm 5% patch] 1 each TP DAILY 7 Days 11/16/16 [Rx] Levofloxacin [Levaquin] 500 mg PO Q48H #2 tablet 12/19/16 [Rx] Allergies/Adverse Reactions: Allergies ceftriaxone [From Rocephin] Allergy (Verified 11/15/16 03:10) Hives levofloxacin [From Levaquin] Allergy (Verified 11/14/16 21:21) Hives Date of admission: 12/16/16 19:26 Primary care physician: Yonatan Aleman, Consults: 12/16/16 19:55 Consult to Nephrology [CONS] Routine Consulting Provider: [facility] Reason for Consult: pls assist us in managing this pt known to you with ESRD on HD MWF for inpt HD, thanks Call Completed: No 12/19/16 08:15 Consult to Dialysis [CONS] ONCE Discharging clinician: Osmar Lomeli Anticipated date of discharge: 12/19/16 - Patient Status Disposition: Home, Self-Care Condition: Fair Functional capacity at discharge: independent ambulation Overall status at discharge: patient is back to baseline - Discharge Instructions Follow Up With: Yonatan Aleman DO [Primary Care Provider] - (web request sent on 12/17/16) - Diet and Activity Activity: increase activity as tolerated Diet: advance to your usual diet Interval History: Ms. Orellana is a 66 year old female with a history of multiple co-morbidities including ESRD on HD MWF was transferred here from [facility] for pneumonia with altered mental status. She was in her usual state of health until earlier in the week when she began to fell unwell with nausea, generalized weakness, cough and fatigue. Due to her symptoms she missed her regular HD on both Monday and Monday but was able to make it today. Whilst in HD she became lethargic and was difficult to arouse so she was sent to [facility] where she was found to have pneumonia and was transferred here for further evaluation and management. She denies fever, chills, but had nausea and vomiting. Patient was lethargic so most of the limited history was obtained from family at bedside and ER charts. Hospital course: Ms. Orellana is a 66 year old female admitted due to pneumonia, testing positive for strep pneumo, responded well to Levaquin. No fever, no leukocytosis since admission. Has received IV Levaquin since admission. Hemodialysis today as per nephrology. We will discharge her home today after hemodialysis with by mouth Levaquin for continuity of care. - Time Spent with Patient Total time spent providing and/or coordinating discharge services: - Constitutional Vitals: Temp Pulse Resp BP Pulse Ox 98.5 F 65 18 139/68 95 12/19/16 07:09 12/19/16 07:09 12/19/16 07:09 12/19/16 07:09 12/19/16 07:09 General appearance: Present: A&O X 3, pleasant, no acute distress - Head Head exam: Present: atraumatic, normocephalic - Eye Eye exam: Present: PERRL, conjuntiva pink, sclera anicteric Pupils: Present: PERRL - Neck Neck exam general surgery: Present: supple, trachea midline. Absent: lymphadenopathy - Respiratory Respiratory exam: Present: CTAB. Absent: accessory muscle use, rales, rhonchi, wheezes - Cardiovascular Cardiovascular exam: Present: RRR, +S1, +S2. Absent: diastolic murmur, gallop, rubs, systolic murmur - GI/Abdominal GI/Abdominal exam: Present: normal bowel sounds, soft, no peritoneal signs. Absent: distended, tenderness - Extremities Exam Extremities exam: Present: warm, radial pulses palpable and symetrical. Absent : calf tenderness, cyanotic, pedal edema - Neurological Exam Neurological exam: Present: CN II-XII intact, oriented X3, no focal deficits. Absent: pronater drift, facial droop, speech deficit - Skin Skin exam: Present: dry, intact
[2016-12-19] MEDS ORDERED: 0.9 % Sodium Chloride 2,000 ML ONE (13:13)
[2016-12-19 14:44] VITALS: BP 142/83
== END 2016-12-19 15:02 | disposition home or self-care (01) | DRG 190 ==
LOC: 2ANU
PROVIDERS: ADMIT Internal Medicine; ATTEND Internal Medicine

== ENCOUNTER 2017-11-11 20:17 | Inpatient (IN) ==
[2017-11-11] MEDS ORDERED: methylPREDNISolone 125 MG/2 ML VIAL IVP ONE (20:27)
[2017-11-11] MEDS ORDERED: Ipratropium/Albuterol Neb 3 ML IH ONE (20:27)
[2017-11-11 20:56] LABS: Hematocrit 32.5 % (35.3-44.9); Hemoglobin 9.9 g/dL (11.5-15.4); Mean Corpuscular HGB Conc 30.5 g/dL (31.6-35.5); Mean Corpuscular Hemoglobin 30.2 pg (28.0-33.3); Mean Corpuscular Volume 99.1 fL (83.0-100.0); Mean Platelet Volume 9.3 fL (9.4-12.4); Platelet Count 132 K/mcL (140-400); Red Blood Count 3.28 M/mcL (3.82-4.97); Red Cell Distribution Width 14.7 % (11.5-14.5)
--- NOTE | 2017-11-11 21:01 | Emergency Department Note ---
Disposition Clinical Impression: Hypercapnia, Hypoxia, COPD exacerbation, Respiratory acidosis Pneumonia Qualifiers: Pneumonia type: due to unspecified organism Laterality: right Lung location: lower lobe of lung Qualified Code(s): J18.1 - Lobar pneumonia, unspecified organism Dyspnea Qualifiers: Dyspnea type: unspecified Qualified Code(s): R06.00 - Dyspnea, unspecified Disposition: Admitted As Inpatient Condition: Good Referrals: Yonatan Aleman DO [Primary Care Provider] - Forms: ED Satisfaction Letter Time of Disposition: 23:02 SOB HPI - General Chief Complaint: ED Shortness of Breath/Dyspnea Stated Complaint: Low O2 Time Seen by Provider: 11/11/17 20:26 Source: patient Mode of arrival: wheelchair Limitations: no limitations Nursing Notes Reviewed: Yes Vital Signs Reviewed: Yes - History of Present Illness Patient is a 67-year-old female with past medical history of COPD, CAD, renal disease, dialysis. She presents today due to shortness of breath. She states that over the past few hours, she has had a gradual onset of difficulty with breathing. Denies any chest pain, productive cough, fevers, nausea, vomiting, abdominal pain, dysuria, hematuria. She does take albuterol inhalers and steroid inhalers daily. Denies any history of blood clots. She usually wears 4 L nasal cannula at all times at home. Denies any other unilateral leg swelling, long car rides, estrogen use, history of recent surgeries. - Related Data Home Medications Medication Instructions Recorded Confirmed Albuterol Sulfate [Albuterol 2 puff IH Q4H PRN 06/02/15 03/18/17 Inhaler] Atorvastatin [Lipitor] 40 mg PO HS 06/02/15 03/18/17 Citalopram Hydrobromide 20 mg PO QAM 06/02/15 03/18/17 [Citalopram HBr] Levothyroxine [Synthroid] 200 mcg PO QAM 06/02/15 03/18/17 Losartan Potassium 50 mg PO QAM 06/02/15 03/18/17 Metoprolol Tartrate 25 mg PO BID 06/02/15 03/18/17 Omeprazole 40 mg PO QAM 06/02/15 03/18/17 OxyCODONE Immed Rel [Roxicodone 10 10 mg PO Q6H PRN 06/02/15 03/18/17 MG] Aspirin 81 mg PO DAILY 09/22/15 03/18/17 Docusate [Colace] 100 mg PO BID PRN 09/22/15 03/18/17 B Complex with Vitamin C [Mary Ann-Bee 1 each PO DAILY 02/22/16 03/18/17 with C] Sevelamer [Renvela] 800 mg PO TIDWM 08/29/16 03/18/17 cloNIDine HCl [CloNIDine HCl] 0.1 mg PO DAILY PRN 08/29/16 03/18/17 Fluticasone/Salmeterol [Advair Hfa 2 puff IH BID 11/14/16 03/18/17 115-21 Mcg Inhaler] Ipratropium/Albuterol Neb [Duoneb] 3 ml IH QID PRN 11/14/16 03/18/17 NIFEdipine [Nifedipine ER] 90 mg PO DAILY 11/14/16 03/18/17 Renal Vitamin [Renal Caps Softgel] 1 mg PO DAILY 11/14/16 03/18/17 Previous Rx's Medication Instructions Recorded Lidocaine Patch [Lidoderm 5% patch] 1 each TP DAILY 7 Days adh..patch 11/16/16 Levofloxacin [Levaquin] 500 mg PO Q48H #2 tablet 12/19/16 Allergies Allergy/AdvReac Type Severity Reaction Status Date / Time ceftriaxone [From Rocephin] Allergy Hives Verified 11/11/17 20:19 levofloxacin [From Levaquin] Allergy Hives Verified 11/11/17 20:19 All systems ED: reviewed and negative except as stated. Constitutional: Denies: fever Cardiovascular: Denies: chest pain, palpitations Respiratory: Reports: dyspnea. Denies: cough, sputum production Gastrointestinal: Denies: abdominal pain, nausea, vomiting, diarrhea Integumentary: Denies: rash Neurological: Denies: headache, weakness, numbness, paresthesias Past Medical History - Past Medical History Attestation: Yes The following information was validated with the patient. Source: patient Medical history: Reports: arthritis, dialysis, hyperlipidemia, hypertension, renal disease, thyroid disease Surgical history: Reports: coronary bypass (CABG), other (Left arm dialysis shunt) Psychiatric history: Reports: anxiety, depression LISW history: Reports: no LISW history - Social History Smoking Status: Current every day smoker Smokeless Tobacco Status: No Alcohol use: Reports: none Drug use: Reports: none Physical Exam - General Limitations: no limitations General appearance: alert - Head Head exam: atraumatic, normocephalic, normal inspection - Eye Eye exam: Present: normal appearance, PERRL, EOMI - ENT ENT exam: normal exam, normal oropharynx, mucous membranes moist - Neck Neck exam: Present: normal inspection, full ROM, trachea midline - Chest Chest inspection: Present: normal inspection, symmetric chest wall rise - Respiratory Respiratory exam: Present: respiratory distress (Moderate), other ( Conversationally dyspneic, wheezes and decreased aeration throughout). Absent: stridor, accessory muscle use - Cardiovascular Cardiovascular exam: Present: normal rhythm, tachycardia, normal heart sounds - Abdominal Exam Abdominal exam: Present: soft, Non-Tender. Absent: tenderness, distention, guarding, rebound, rigidity - Extremities Exam Extremities exam: Present: normal inspection, full ROM. Absent: tenderness, pedal edema - Neurological Exam Neurological exam: Present: alert, oriented X3 - Psychiatric Psychiatric exam: Present: normal affect, normal mood - Skin Skin exam: Present: warm, dry, intact, normal color Course Course Narrative: Patient was 74% on room air when she came in. She is placed on 6 L nasal cannula and went to 86%. Patient had a be placed on BiPAP and is now satting 96 %. Currently concern for COPD exacerbation. EKG, chest x-ray, basic blood work , troponin ordered. No current chest pain, less concerned for ACS at this time. Patient will be admitted after workup for further care due to worsening shortness of breath and hypoxia. 21:32 patient chronically anemic, chronic elevation in creatinine due to dialysis patient. Troponin 0.05, chronically elevated likely secondary to renal failure. D-dimer elevated at 2200. Will perform CTA of the chest. Patient will require dialysis regardless, therefore CTA will be obtained rather than the VQ scan. Chest x-ray shows possible right lower lobe pneumonia. Patient started on vancomycin and meropenem. Unable to start Levaquin or Zosyn at this time due to her allergies to levaquin and rocephin (bet lactams). 23:00 CTA was negative for PE but did show multifocal airspace disease throughout all 5 lobes suspicious for aspiration. Patient has already been started on vancomycin and meropenem. She is improving while on BiPAP but ABG after an hour and a half on BiPAP does show the patient was acutely acidotic with hypercapnia. I discussed admitting the patient to ICU with the hospitalist who is in agreement. Patient will be admitted to ICU for further care. Chest X-Ray 11/11/17 20:26 IMPRESSION: Mild patchy opacity at the right lung base could be due to atelectasis or developing pneumonia. D/ / Doug Celaya MD / Doug Celaya MD Interpreting Provider: Doug Celaya MD Chest CTA 11/11/17 21:31 IMPRESSION: Negative for acute pulmonary embolism. Multifocal airspace disease throughout all 5 lobes, most suspicious for aspiration sequela given basal predominance, tracheobronchial secretions, and airway inflammation. Mediastinal and hilar lymphadenopathy is favored to be reactive in the setting of aspiration pneumonia. Recommend follow-up CT chest in 3 months for re-evaluation. Ectatic thoracic aortic area with heavy mixed atherosclerotic plaque throughout its course, similar to prior exam. D/ / 11/11/2017 22:39:49 Nadeem Jimenes / moises Interpreting Provider: Nadeem Jimenes Vital Signs Temperature 98.1 F 11/11/17 20:18 Pulse Rate 100 11/11/17 20:18 Respiratory Rate 18 11/11/17 20:18 Blood Pressure 139/81 11/11/17 20:18 O2 Sat by Pulse Oximetry 74 11/11/17 20:18 Temperature 98.1 F 11/11/17 20:18 Pulse Rate 104 11/11/17 22:17 Respiratory Rate 18 11/11/17 22:17 Blood Pressure 135/76 11/11/17 22:17 O2 Sat by Pulse Oximetry 93 11/11/17 22:17 Oxygen Delivery Oxygen Delivery Room Air,Nasal Cannula,Bipap Shortness of Breath/Dyspnea - MDM Narrative Medical decision making narrative: Patient was 74% on room air when she came in. She is placed on 6 L nasal cannula and went to 86%. Patient had a be placed on BiPAP and is now satting 96 %. Currently concern for COPD exacerbation. EKG, chest x-ray, basic blood work , troponin ordered. No current chest pain, less concerned for ACS at this time. Patient will be admitted after workup for further care due to worsening shortness of breath and hypoxia. 21:32 patient chronically anemic, chronic elevation in creatinine due to dialysis patient. Troponin 0.05, chronically elevated likely secondary to renal failure. D-dimer elevated at 2200. Will perform CTA of the chest. Patient will require dialysis regardless, therefore CTA will be obtained rather than the VQ scan. Chest x-ray shows possible right lower lobe pneumonia. Patient started on vancomycin and meropenem. Unable to start Levaquin or Zosyn at this time due to her allergies to levaquin and rocephin (bet lactams). 23:00 CTA was negative for PE but did show multifocal airspace disease throughout all 5 lobes suspicious for aspiration. Patient has already been started on vancomycin and meropenem. She is improving while on BiPAP but ABG after an hour and a half on BiPAP does show the patient was acutely acidotic with hypercapnia. I discussed admitting the patient to ICU with the hospitalist who is in agreement. Patient will be admitted to ICU for further care. - Medical Records Medical records reviewed: Yes I reviewed the patient's medical records. - Lab Data Lab results reviewed: Yes I reviewed the patient's lab results. Result diagrams: 11/11/17 20:26 11/11/17 20:26 Lab Results 11/11/17 11/11/17 11/11/17 Range/Units 20:26 20:26 20:26 WBC 11.6 H (4.3-11.1) K/mcL RBC 3.28 L (3.82-4.97) M/mcL Hgb 9.9 L (11.5-15.4) g/dL Hct 32.5 L (35.3-44.9) % MCV 99.1 (83.0-100.0) fL MCH 30.2 (28.0-33.3) pg MCHC 30.5 L (31.6-35.5) g/dL RDW 14.7 H (11.5-14.5) % Plt Count 132 L (140-400) K/mcL MPV 9.3 L (9.4-12.4) fL Seg Neutrophils % 86.0 % Band Neutrophils % 6.0 H (0-4) % Lymphocytes % 4.0 % Monocytes % 4.0 % Neutrophils # 10.7 H (1.6-8.9) K/mcL Lymphocytes # 0.5 L (0.6-4.6) K/mcL Monocytes # 0.5 (0.0-1.3) K/mcL Toxic Granulation Present A (Not Present) Platelet Estimate Slight Decrease L (Normal) D-Dimer (0-500) ng/mLFEU Sample Site ABG pH (7.32-7.45) pH Units ABG pCO2 (35-45) mmHg ABG pO2 (85-104) mmHg ABG HCO3 (21-27) mEq/L ABG Total CO2 (20-26) mEq/L ABG O2 Saturation (95-98) % ABG Base Excess (-2 to 3) mEq/L José Antonio Test O2 Delivery Device Inspired O2 (1-15=lpm [id number]=%) Sodium 136 (136-145) mEq/L Potassium 3.8 (3.5-5.1) mEq/L Chloride 99 (98-107) mEq/L Carbon Dioxide 27 (23-29) mEq/L BUN 24 H (8-23) mg/dL Creatinine 3.50 H (0.60-1.20) mg/dL Est GFR ( Amer) 16 L (> 60) Est GFR (Non-Af Amer) 13 L (> 60) BUN/Creatinine Ratio 7 (6-26) Glucose 117 H (70-105) mg/dL Calculated Osmolality 287 (280-300) Lactic Acid (0.5-2.2) mmol/L Calcium 9.1 (8.6-10.3) mg/dL Troponin I 0.05 H* (< 0.04) ng/mL B-Natriuretic Peptide 969 H (Less than 100) pg/mL 11/11/17 11/11/17 11/11/17 Range/Units 20:37 20:37 21:39 WBC (4.3-11.1) K/mcL RBC (3.82-4.97) M/mcL Hgb (11.5-15.4) g/dL Hct (35.3-44.9) % MCV (83.0-100.0) fL MCH (28.0-33.3) pg MCHC (31.6-35.5) g/dL RDW (11.5-14.5) % Plt Count (140-400) K/mcL MPV (9.4-12.4) fL Seg Neutrophils % % Band Neutrophils % (0-4) % Lymphocytes % % Monocytes % % Neutrophils # (1.6-8.9) K/mcL Lymphocytes # (0.6-4.6) K/mcL Monocytes # (0.0-1.3) K/mcL Toxic Granulation (Not Present) Platelet Estimate (Normal) D-Dimer 2242 H (0-500) ng/mLFEU Sample Site R Radial ABG pH 7.25 L (7.32-7.45) pH Units ABG pCO2 73 H* (35-45) mmHg ABG pO2 70 L (85-104) mmHg ABG HCO3 32 H (21-27) mEq/L ABG Total CO2 34 H (20-26) mEq/L ABG O2 Saturation 90 L (95-98) % ABG Base Excess 3 (-2 to 3) mEq/L José Antonio Test Positive O2 Delivery Device BiPAP Inspired O2 40.0 (1-15=lpm [id number]=%) Sodium (136-145) mEq/L Potassium (3.5-5.1) mEq/L Chloride (98-107) mEq/L Carbon Dioxide (23-29) mEq/L BUN (8-23) mg/dL Creatinine (0.60-1.20) mg/dL Est GFR ( Amer) (> 60) Est GFR (Non-Af Amer) (> 60) BUN/Creatinine Ratio (6-26) Glucose (70-105) mg/dL Calculated Osmolality (280-300) Lactic Acid 0.7 (0.5-2.2) mmol/L Calcium (8.6-10.3) mg/dL Troponin I (< 0.04) ng/mL B-Natriuretic Peptide (Less than 100) pg/mL - Radiology Data Radiology results reviewed: Yes I reviewed the patient's radiology results. - EKG Data EKG attestation: Yes I reviewed and interpreted this EKG. EKG results narrative: 11/11/2017 at 20:28. Normal sinus rhythm. Rate 98. NE 150. QRS 110. QTC 415. Normal axis. No acute ST elevation or depression. S.B.A.R. - Felipe Situation: Demographics, MOA Background: Presenting Complaint, Relevant PMH, Meds, & Allergies Assessment: Vital Signs, Course and respsone to treatment, Exam Concerns, Patient/Family Expectation, Pertinant Lab Results Recommendation: Barrier(s) to disposition, Recommendation based on pending studies, treatments, or consults Felipe Report Given to: Dr. Kalie Wang Repor Time: 23:01
[2017-11-11 21:19] LABS: Calcium 9.1 mg/dL (8.6-10.3); Potassium 3.8 mEq/L (3.5-5.1)
[2017-11-11 21:22] LABS: Troponin I 0.05 ng/mL (< 0.04)
[2017-11-11 21:34] LABS: Lymphocytes # 0.5 K/mcL (0.6-4.6); Monocytes # 0.5 K/mcL (0.0-1.3); Neutrophils # 10.7 K/mcL (1.6-8.9); Platelet Estimate Slight Decrease (Normal); Toxic Granulation Present (Not Present)
[2017-11-11 21:44] LABS: ABG Base Excess 3 mEq/L (-2 to 3); ABG HCO3 32 mEq/L (21-27); ABG Oxygen Saturation 90 % (95-98); ABG PCO2 73 mmHg (35-45); ABG PH 7.25 pH Units (7.32-7.45); ABG PO2 70 mmHg (85-104); ABG TCO2 34 mEq/L (20-26)
[2017-11-11] MEDS ORDERED: Meropenem 1,000 MG in 0.9 % Sodium Chloride Mini Bag 100 ML IVPB ONE (22:00)
--- NOTE | 2017-11-11 22:49 | Emergency Department Note ---
Disposition Clinical Impression: Hypercapnia, Hypoxia, COPD exacerbation Pneumonia Qualifiers: Pneumonia type: due to unspecified organism Laterality: right Lung location: lower lobe of lung Qualified Code(s): J18.1 - Lobar pneumonia, unspecified organism Dyspnea Qualifiers: Dyspnea type: unspecified Qualified Code(s): R06.00 - Dyspnea, unspecified Disposition: Admitted As Inpatient Condition: Good Referrals: Yonatan Aleman DO [Primary Care Provider] - Forms: ED Satisfaction Letter General Adult HPI - General Chief complaint: ED Shortness of Breath/Dyspnea Stated complaint: Low O2 Time Seen by Provider: 11/11/17 20:26 Source: patient Mode of arrival: wheelchair Limitations: no limitations - History of Present Illness Pain Scale: 0 - Related Data Home Medications Medication Instructions Recorded Confirmed Albuterol Sulfate [Albuterol 2 puff IH Q4H PRN 06/02/15 03/18/17 Inhaler] Atorvastatin [Lipitor] 40 mg PO HS 06/02/15 03/18/17 Citalopram Hydrobromide 20 mg PO QAM 06/02/15 03/18/17 [Citalopram HBr] Levothyroxine [Synthroid] 200 mcg PO QAM 06/02/15 03/18/17 Losartan Potassium 50 mg PO QAM 06/02/15 03/18/17 Metoprolol Tartrate 25 mg PO BID 06/02/15 03/18/17 Omeprazole 40 mg PO QAM 06/02/15 03/18/17 OxyCODONE Immed Rel [Roxicodone 10 10 mg PO Q6H PRN 06/02/15 03/18/17 MG] Aspirin 81 mg PO DAILY 09/22/15 03/18/17 Docusate [Colace] 100 mg PO BID PRN 09/22/15 03/18/17 B Complex with Vitamin C [Mary Ann-Bee 1 each PO DAILY 02/22/16 03/18/17 with C] Sevelamer [Renvela] 800 mg PO TIDWM 08/29/16 03/18/17 cloNIDine HCl [CloNIDine HCl] 0.1 mg PO DAILY PRN 08/29/16 03/18/17 Fluticasone/Salmeterol [Advair Hfa 2 puff IH BID 11/14/16 03/18/17 115-21 Mcg Inhaler] Ipratropium/Albuterol Neb [Duoneb] 3 ml IH QID PRN 11/14/16 03/18/17 NIFEdipine [Nifedipine ER] 90 mg PO DAILY 11/14/16 03/18/17 Renal Vitamin [Renal Caps Softgel] 1 mg PO DAILY 11/14/16 03/18/17 Previous Rx's Medication Instructions Recorded Lidocaine Patch [Lidoderm 5% patch] 1 each TP DAILY 7 Days adh..patch 11/16/16 Levofloxacin [Levaquin] 500 mg PO Q48H #2 tablet 12/19/16 Allergies Allergy/AdvReac Type Severity Reaction Status Date / Time ceftriaxone [From Rocephin] Allergy Hives Verified 11/11/17 20:19 levofloxacin [From Levaquin] Allergy Hives Verified 11/11/17 20:19 Constitutional: Denies: fever Cardiovascular: Denies: chest pain, palpitations Respiratory: Reports: dyspnea. Denies: cough, sputum production Gastrointestinal: Denies: abdominal pain, nausea, vomiting, diarrhea Integumentary: Denies: rash Neurological: Denies: headache, weakness, numbness, paresthesias Past Medical History - Past Medical History Medical history: Reports: arthritis, dialysis, hyperlipidemia, hypertension, renal disease, thyroid disease Surgical history: Reports: coronary bypass (CABG), other (Left arm dialysis shunt) Psychiatric history: Reports: anxiety, depression HAND STONER history: Reports: no HAND STONER history - Social History Smoking Status: Current every day smoker Smokeless Tobacco Status: No Alcohol use: Reports: none Drug use: Reports: none Physical Exam - General Limitations: no limitations General appearance: alert Course Vital Signs Temperature 98.1 F 11/11/17 20:18 Pulse Rate 100 11/11/17 20:18 Respiratory Rate 18 11/11/17 20:18 Blood Pressure 139/81 11/11/17 20:18 O2 Sat by Pulse Oximetry 74 11/11/17 20:18 Temperature 98.1 F 11/11/17 20:18 Pulse Rate 104 11/11/17 22:17 Respiratory Rate 18 11/11/17 22:17 Blood Pressure 135/76 11/11/17 22:17 O2 Sat by Pulse Oximetry 93 11/11/17 22:17 Oxygen Delivery Oxygen Delivery Room Air,Nasal Cannula,Bipap Medical Decision Making - Lab Data Result diagrams: 11/11/17 20:26 11/11/17 20:26 Lab Results 11/11/17 11/11/17 11/11/17 Range/Units 20:26 20:26 20:26 WBC 11.6 H (4.3-11.1) K/mcL RBC 3.28 L (3.82-4.97) M/mcL Hgb 9.9 L (11.5-15.4) g/dL Hct 32.5 L (35.3-44.9) % MCV 99.1 (83.0-100.0) fL MCH 30.2 (28.0-33.3) pg MCHC 30.5 L (31.6-35.5) g/dL RDW 14.7 H (11.5-14.5) % Plt Count 132 L (140-400) K/mcL MPV 9.3 L (9.4-12.4) fL Seg Neutrophils % 86.0 % Band Neutrophils % 6.0 H (0-4) % Lymphocytes % 4.0 % Monocytes % 4.0 % Neutrophils # 10.7 H (1.6-8.9) K/mcL Lymphocytes # 0.5 L (0.6-4.6) K/mcL Monocytes # 0.5 (0.0-1.3) K/mcL Toxic Granulation Present A (Not Present) Platelet Estimate Slight Decrease L (Normal) D-Dimer (0-500) ng/mLFEU Sample Site ABG pH (7.32-7.45) pH Units ABG pCO2 (35-45) mmHg ABG pO2 (85-104) mmHg ABG HCO3 (21-27) mEq/L ABG Total CO2 (20-26) mEq/L ABG O2 Saturation (95-98) % ABG Base Excess (-2 to 3) mEq/L José Antonio Test O2 Delivery Device Inspired O2 (1-15=lpm [id number]=%) Sodium 136 (136-145) mEq/L Potassium 3.8 (3.5-5.1) mEq/L Chloride 99 (98-107) mEq/L Carbon Dioxide 27 (23-29) mEq/L BUN 24 H (8-23) mg/dL Creatinine 3.50 H (0.60-1.20) mg/dL Est GFR ( Amer) 16 L (> 60) Est GFR (Non-Af Amer) 13 L (> 60) BUN/Creatinine Ratio 7 (6-26) Glucose 117 H (70-105) mg/dL Calculated Osmolality 287 (280-300) Lactic Acid (0.5-2.2) mmol/L Calcium 9.1 (8.6-10.3) mg/dL Troponin I 0.05 H* (< 0.04) ng/mL B-Natriuretic Peptide 969 H (Less than 100) pg/mL 11/11/17 11/11/17 11/11/17 Range/Units 20:37 20:37 21:39 WBC (4.3-11.1) K/mcL RBC (3.82-4.97) M/mcL Hgb (11.5-15.4) g/dL Hct (35.3-44.9) % MCV (83.0-100.0) fL MCH (28.0-33.3) pg MCHC (31.6-35.5) g/dL RDW (11.5-14.5) % Plt Count (140-400) K/mcL MPV (9.4-12.4) fL Seg Neutrophils % % Band Neutrophils % (0-4) % Lymphocytes % % Monocytes % % Neutrophils # (1.6-8.9) K/mcL Lymphocytes # (0.6-4.6) K/mcL Monocytes # (0.0-1.3) K/mcL Toxic Granulation (Not Present) Platelet Estimate (Normal) D-Dimer 2242 H (0-500) ng/mLFEU Sample Site R Radial ABG pH 7.25 L (7.32-7.45) pH Units ABG pCO2 73 H* (35-45) mmHg ABG pO2 70 L (85-104) mmHg ABG HCO3 32 H (21-27) mEq/L ABG Total CO2 34 H (20-26) mEq/L ABG O2 Saturation 90 L (95-98) % ABG Base Excess 3 (-2 to 3) mEq/L José Antonio Test Positive O2 Delivery Device BiPAP Inspired O2 40.0 (1-15=lpm [id number]=%) Sodium (136-145) mEq/L Potassium (3.5-5.1) mEq/L Chloride (98-107) mEq/L Carbon Dioxide (23-29) mEq/L BUN (8-23) mg/dL Creatinine (0.60-1.20) mg/dL Est GFR ( Amer) (> 60) Est GFR (Non-Af Amer) (> 60) BUN/Creatinine Ratio (6-26) Glucose (70-105) mg/dL Calculated Osmolality (280-300) Lactic Acid 0.7 (0.5-2.2) mmol/L Calcium (8.6-10.3) mg/dL Troponin I (< 0.04) ng/mL B-Natriuretic Peptide (Less than 100) pg/mL Attestation Statement - Attestation Attestation: I examined this patient and my medical decision-making was reviewed with the Resident Physician. I agree with the documented findings, disposition and treatment plan as described except to the extent set forth below. Patient to the etiology complaint of difficulty breathing. Progressive over the past few hours. Coughing. Patient normally wears 4 L of oxygen nasal cannula. On arrival here she satting in the mid 70s and visibly dyspneic. Plan. The patient is tolerating BiPAP at this time satting in the mid 90s in no distress. White count 11 with the 6% bandemia. We did CT her chest and she has diffuse airspace disease in all lobes. She started on broad-spectrum antibiotics. We will recommend admission to ICU.
--- NOTE | 2017-11-11 23:48 | Internal Med History&Physical ---
<Juan Alberto Urena - Last Filed: 11/12/17 00:58> Date of Encounter: 11/11/17 Time of Encounter: 23:47 Internal Medicine - H&P: HPI Chief complaint: Hypoxia Admitted From: Home Plans for Post Hospital Care: Home History of present illness: Ms. Orellana is a 67 year old female with past medical history of COPD, end-stage renal disease on Monday dialysis, retention, CAD status post CABG presents to emergency room with complaint of hypoxia. She was visiting her who is currently in the ICU when family and staff noticed that she was acting strangely. Family reports this has been happening for the past 2 days. Pulse oximeter was placed and patient had an oxygen saturation in the 70s. She was sent to the emergency room for further evaluation. Upon presentation to the emergency room, vital signs were significant for a heart rate of 100, auction saturation of 74% and she was subsequently placed on BiPAP. Laboratory results were significant for an ABG showing respiratory acidosis with a pH of 7.25, CO2 of 73. D-dimer was elevated at 2242 and subsequent CTA showed no evidence of pulmonary embolism did show possible aspiration pneumonia. Troponin was mildly elevated at 0.05, BNP of 969, BUN/ creatinine of 24/3.50 which is consistent with her baseline. Family also reports that patient missed dialysis on Monday but did go today. At time of interview, patient is somnolent and majority of history of present illness is obtained through family was present at bedside. They state that she has had an increased cough in the past couple days but are unable to determine her sputum amount or color. Recent illnesses including her who as above is currently in the ICU and has tested positive for human metapneumovirus. Family states that she does have multiple exacerbations of her COPD per year. She normally does wear 4 L of oxygen continuously at home with BiPAP at night and they state she has been non compliant with this. Past Med Surg Social Fam HX - Past Medical History Medical history: arthritis, dialysis, hyperlipidemia, hypertension, renal disease, thyroid disease Psychiatric history: anxiety, depression - Past Surgical History Surgical History: coronary bypass (CABG), other (Left arm dialysis shunt) - Social History Smoking Status: Current every day smoker Smokeless Tobacco Status: No Alcohol use: none Drug use: none - Family History Brother Family Member Ethnicity: Unknown Hx Family Cardiac Disorders: Yes (one brother passed sudden heart attack) Mother Living Status: Hx Family Cancer: Yes (lung cancer) Father Living Status: Hx Family Cancer: Yes (lung cancer) Internal Medicine - H&P: Meds Albuterol Sulfate [Albuterol Inhaler] 2 puff IH Q4H PRN 06/02/15 [History] Atorvastatin [Lipitor] 40 mg PO HS 06/02/15 [History] Citalopram Hydrobromide [Citalopram HBr] 20 mg PO QAM 06/02/15 [History] Levothyroxine [Synthroid] 200 mcg PO QAM 06/02/15 [History] Losartan Potassium 50 mg PO QAM 06/02/15 [History] Metoprolol Tartrate 25 mg PO BID 06/02/15 [History] Omeprazole 40 mg PO QAM 06/02/15 [History] OxyCODONE Immed Rel [Roxicodone 10 MG] 10 mg PO Q6H PRN 06/02/15 [History] Aspirin 81 mg PO DAILY 09/22/15 [History] Docusate [Colace] 100 mg PO BID PRN 09/22/15 [History] B Complex with Vitamin C [Mary Ann-Bee with C] 1 each PO DAILY 02/22/16 [History] Sevelamer [Renvela] 800 mg PO TIDWM 08/29/16 [History] cloNIDine HCl [CloNIDine HCl] 0.1 mg PO DAILY PRN 08/29/16 [History] Fluticasone/Salmeterol [Advair Hfa 115-21 Mcg Inhaler] 2 puff IH BID 11/14/16 [ History] Ipratropium/Albuterol Neb [Duoneb] 3 ml IH QID PRN 11/14/16 [History] NIFEdipine [Nifedipine ER] 90 mg PO DAILY 11/14/16 [History] Renal Vitamin [Renal Caps Softgel] 1 mg PO DAILY 11/14/16 [History] Lidocaine Patch [Lidoderm 5% patch] 1 each TP DAILY 7 Days adh..patch 11/16/16 [Rx] Levofloxacin [Levaquin] 500 mg PO Q48H #2 tablet 12/19/16 [Rx] 3 Allergy/AdvReac Type Severity Reaction Status Date / Time ceftriaxone [From Rocephin] Allergy Hives Verified 11/11/17 20:19 levofloxacin [From Levaquin] Allergy Hives Verified 11/11/17 20:19 ROS unobtainable: due to mental status All Systems PM: A 10-system review of systems was performed and is negative for pertinent findings except as documented above in the HPI. - Constitutional Constitutional: as per HPI - EENT Eyes: as per HPI - Cardiovascular Cardiovascular ROS IM: dyspnea, dyspnea on exertion, no chest pain, no edema - Respiratory Respiratory: as per HPI, cough, dyspnea, dyspnea on exertion, no hemoptysis, no wheezing - Gastrointestinal Gastrointestinal: as per HPI - Neurological Neurological ROS: as per HPI - Psychiatric Psychiatric: as per HPI - Constitutional Vitals: Temp Pulse Resp BP Pulse Ox 98.1 F 94 20 135/65 93 11/11/17 20:18 11/11/17 23:47 11/11/17 23:47 11/11/17 23:47 11/11/17 23:47 Exam: Gen.: Vitals noted. No acute distress. Somnolent on exam and resting comfortably. HEENT: PERRL oropharynx clear, Normocephalic, atraumatic, mucous membranes moist Cardiac: RRR, no murmur, +S1/S2 Pulmonary: Diffuse rhonchi on exam. no wheezes, rales. equal chest expansion Abdomen: soft, nontender, BS noted, no guarding Extremities: no BLE edema, nontender calf, no cyanosis or clubbing Neuro: Somnolent but answers questions appropriately. moves all extremities, no focal deficits Psych: Appropriate mood and behavior Internal Med - H&P Results - Labs CBC & Chem 7: 11/11/17 20:26 11/11/17 20:26 - Assessment and plan (1) Acute on chronic respiratory failure with hypoxia Current Visit: Yes Status: Acute Assessment and plan: Acute on chronic respiratory failure with hypoxia and hypercapnia. - Likely secondary to COPD exacerbation with possible underlying pneumonia - Patient has known history of COPD with frequent exacerbations and is oxygen dependent at home at 4 L with BiPAP at night - Per patient's family, she has been noncompliant with her oxygen - ABG on presentation showed a pH of 7.25, CO2 73, bicarbonate 27, PaO2 70 indicating an uncompensated respiratory acidosis - She is currently maintaining good oxygen saturation on BiPAP with settings 15/ 7 - Chest x-ray and chest CTA performed in the emergency department showing possible right-sided aspiration pneumonia otherwise no focal abnormalities - Patient's is admitted to the ICU and intubated and tested positive for human metapneumovirus - Most recent echocardiogram in 09/22 showed an ejection fraction of 60% - Patient does meet sirs criteria with tachycardia and tachypnea, however this is less likely sepsis and more likely sensation for respiratory distress Plan - Serial ABGs to monitor for respiratory acidosis improvement on BiPAP - Continue duo nebs, Solu-Medrol 40 mg every 8 hours - Continue Zosyn and vancomycin for aspiration pneumonia. Of note, patient does have a recorded allergy to ceftriaxone of hives, however per chart review patient has received Zosyn in the past without complications. - Respiratory panel pending (2) COPD exacerbation Current Visit: Yes Status: Acute Assessment and plan: - As above for acute on chronic respiratory failure - Continue Zosyn, Solu-Medrol, duo nebs, BiPAP (3) Pneumonia Current Visit: Yes Status: Acute Assessment and plan: - Possible right lower lobe pneumonia as demonstrated on chest x-ray and chest CTA performed emergency department - Concern for aspiration given location - We will continue to manage as above with Zosyn and vancomycin as patient has sick contact with viral illness - Sputum culture, blood culture pending Qualifiers: Pneumonia type: due to unspecified organism Laterality: right Lung location: lower lobe of lung Qualified Code(s): J18.1 - Lobar pneumonia, unspecified organism (4) Altered mental status Current Visit: Yes Status: Acute Assessment and plan: - Patient initially presented to emergency room with complaint of hypoxia and altered mental status - This is likely secondary to hypercapnia as observed on an arterial blood gas - We will closely monitor for improvement and treat underlying conditions as above - Patient admitted to intensive care unit for close monitoring and potential for decompensation Qualifiers: Altered mental status type: delirium Qualified Code(s): R41.0 - Disorientation, unspecified (5) Anemia Current Visit: Yes Status: Chronic Assessment and plan: - Known history of chronic anemia secondary to chronic kidney disease - Labs show an H&H of 9.9/32.5 which does appear to be at patient's baseline - Continue to monitor with daily labs and transfuse as necessary Qualifiers: Anemia type: due to chronic kidney disease Chronic kidney disease stage: on chronic dialysis Qualified Code(s): N18.6 - End stage renal disease; D63.1 - Anemia in chronic kidney disease; D63.1 - Anemia in chronic kidney disease; Z99.2 - Dependence on renal dialysis; Z99.2 - Dependence on renal dialysis; Z99.2 - Dependence on renal dialysis; Z99.2 - Dependence on renal dialysis (6) End stage renal disease Current Visit: Yes Status: Chronic Assessment and plan: - Chronic kidney disease with CTD stage V on dialysis on Monday and Monday - Patient is family does state she missed dialysis Monday but did receive her session today - BUN/creatinine of 24/3.50, at baseline levels - Follows with Dr. Calderón, will consult for dialysis, appreciate recommendations - Renally dose medications (7) Current smoker Current Visit: Yes Status: Chronic Assessment and plan: - Patient's family states she continues to smoke heavily, approximately 1 1/2 packs per day - Almost certainly contributing to her decreased respiratory status - Would benefit from smoking cessation (8) Elevated troponin Current Visit: Yes Status: Acute Assessment and plan: - Troponin is 0.05 on presentation to emergency room - In the setting of CKD stage V and respiratory distress - Unlikely ACS - This is likely secondary to demand with reduced clearance, we will trend (9) DVT prophylaxis Current Visit: Yes Status: Acute Assessment and plan: - Heparin 5000 units q12 hours - Time Spent With Patient Total time spent is greater than 50% in coordination of care (as documented) at patient's floor/unit and/or counseling patient: 25 - 35 minutes <Christiano Jade - Last Filed: 11/12/17 06:49> Date of Encounter: 11/11/17 Internal Medicine - H&P: HPI History of present illness: Ms. Orellana is a 67 year old female All Systems PM: A 10-system review of systems was performed and is negative for pertinent findings except as documented above in the HPI. - Constitutional Vitals: Temp Pulse Resp BP Pulse Ox 98.2 F 76 16 116/59 94 11/12/17 04:00 11/12/17 06:00 11/12/17 06:00 11/12/17 06:00 11/12/17 06:00 Internal Med - H&P Results - Labs CBC & Chem 7: 11/12/17 03:10 11/12/17 03:10 - ABG Interpretation ABG results: 11/12/17 06:35 ABG pH 7.32 D ABG pCO2 57 H D ABG pO2 90 ABG HCO3 29 H ABG Total CO2 31 H ABG O2 Saturation 96 ABG Base Excess 3 - Impressions ITS Impressions Chest X-Ray 11/12/17 05:02 IMPRESSION: Appropriate endotracheal tube positioning despite poor visualization of the sarah. No pneumothorax. Pulmonary vascular congestion and mild edema. Fluctuating basilar opacities favored to represent atelectasis although superimposed airspace disease could have a similar appearance in the appropriate context. D/ / Nadeem Jimenes / Nadeem Jimenes Interpreting Provider: Nadeem Jimenes X-Ray 11/12/17 05:03 IMPRESSION: Findings compatible with intragastric positioning of esophagogastric sump tube. D/ / Nadeem Jimenes / Nadeem Jimenes Interpreting Provider: Nadeem Jimenes - Attending Attestation I examined this patient and my medical decision-making was reviewed with the Resident Physician Dr. Urena. I agree with the documented findings, disposition and treatment plan as described except to the extent set forth below. Ms. Orellana is a 67 year old female with past medical history of COPD, end-stage renal disease on Monday dialysis, retention, CAD status post CABG presents to emergency room with complaint of hypoxia. She was visiting her who is currently in the ICU when family and staff noticed that she was acting strangely and she was hypoxic with SPo 2 @ 72%. Pt was sent to ER for further evaluation. pt does have severe hypercapneic resp failure. So placed her on BiPAP and admitted to ICU. When I examined her she is on BiPAP, very lethargic slightly arousable and sedative. Chest : Diminished BS b/l, Diffuse wheezing No crackles Heart: S1S2 + RRR No murmurs Ext: No edema Gen: Sleepy / sedative a/p 1. Acute on chronic hypercapneic resp fialure 2. Sepsis with MLL PNA 3. Acute hypoxic resp failure Continued on BiPAP, titrated BiPAP setting with f/u ABG however her Ph Kept on worsening so finally intubated the pt early in the morning repeat ABG cont empirical abx Zosyn, Vanc and Levaquin Blood cx, sputum cx, Resp viral panel ordered Pulm consulted Spent 60 minutes critical care time on this pt. - Time Spent With Patient Total time spent is greater than 50% in coordination of care (as documented) at patient's floor/unit and/or counseling patient:
[2017-11-11] MEDS ORDERED: traMADol 50 MG TABLET PO PRN (23:52)
[2017-11-11] MEDS ORDERED: Naloxone 0.4 MG/ML INJ IVP PRN (23:52)
[2017-11-12 02:22] LABS: ABG Base Excess 3 mEq/L (-2 to 3); ABG HCO3 32 mEq/L (21-27); ABG Oxygen Saturation 89 % (95-98); ABG PCO2 82 mmHg (35-45); ABG PH 7.21 pH Units (7.32-7.45); ABG PO2 71 mmHg (85-104); ABG TCO2 35 mEq/L (20-26); Blood Gas Modality BiLevel; Blood Gas PEEP 7 cm H2O
[2017-11-12 03:45] LABS: Basophils % 0.1 %; Hematocrit 30.1 % (35.3-44.9); Hemoglobin 9.2 g/dL (11.5-15.4); Lymphocytes # 0.2 K/mcL (0.6-4.6); Lymphocytes % 2.2 %; Mean Corpuscular HGB Conc 30.6 g/dL (31.6-35.5); Mean Corpuscular Hemoglobin 30.8 pg (28.0-33.3); Mean Corpuscular Volume 100.7 fL (83.0-100.0); Mean Platelet Volume 9.3 fL (9.4-12.4); Monocytes # 0.2 K/mcL (0.0-1.3); Monocytes % 2.6 %; Neutrophils # 6.6 K/mcL (1.6-8.9); Platelet Count 112 K/mcL (140-400); Red Blood Count 2.99 M/mcL (3.82-4.97); Red Cell Distribution Width 14.7 % (11.5-14.5); Segmented Neutrophils % 94.1 %
[2017-11-12 03:58] LABS: Calcium 8.9 mg/dL (8.6-10.3); Magnesium 2.1 mg/dL (1.6-2.6); Potassium 4.2 mEq/L (3.5-5.1)
[2017-11-12 04:27] LABS: ABG Base Excess 2 mEq/L (-2 to 3); ABG HCO3 32 mEq/L (21-27); ABG Oxygen Saturation 92 % (95-98); ABG PCO2 84 mmHg (35-45); ABG PH 7.19 pH Units (7.32-7.45); ABG PO2 81 mmHg (85-104); ABG TCO2 34 mEq/L (20-26); Blood Gas Modality BiLevel; Blood Gas PEEP 7 cm H2O
[2017-11-12 04:28] LABS: Platelet Estimate Decreased (Normal)
[2017-11-12] MEDS ORDERED: 0.9 % Sodium Chloride 500 ML ONE (04:59)
[2017-11-12] MEDS ORDERED: Lacri-Lube 3.5 GM TUBE BOTH EYES PRN (05:05)
--- NOTE | 2017-11-12 05:12 | Procedure Note ---
<Juan Alberto Urena - Last Filed: 11/12/17 05:25> Date of procedure: 11/12/17 Pre-op diagnosis: hypercapnia Post-op diagnosis: same Procedure: Procedure: Endotracheal intubation Date: 11/12/17 Time: 0510 Automatic Buffing Wheel Former: Dr. Urena Attending: Dr. Jade Indication: Acute and chronic respiratory failure The patient was placed in supine position. All equipment was checked and operational before beginning the procedure. Sedation was obtained using Etomidate 20 mg and Versed 5mg. The patient was easily ventilated using an Ambu bag. There are laryngoscope using a Mac 4 blade was inserted into the oropharynx at which time a grade 1 view of the vocal cords was visualized. A 7.5 [place] endotracheal tube was inserted and visualized going through the cords. The stylet was removed. Colorimetric change was visualized on the CO2 meter. Breath sounds were heard in both lung woodward. There were no breast breath sounds auscultated over the stomach. The endotracheal tube was placed at 22 cm at the lip line. Attending physician was in attendance throughout the entirety of the procedure. A chest x-ray was ordered afterwards to assess for pneumothorax and placement of the endotracheal tube. The patient tolerated the procedure well without desaturation or hemodynamic compromise. Anesthesia: IV sedation Surgeon: Juan Alberto Urena Was there an legal support assistant present: No Estimated blood loss (cc): 0 Specimen: none Pathology: none sent Condition: stable Disposition: ICU <Christiano Jade - Last Filed: 11/12/17 06:53> Procedure: I am at bedside and supervised the resident Dr. Urena during the intubation. Pt is becoming more resp acidosis depsite BiPAP treatment. Pt was given etomodate and Versed for sedation then intubated with 7.5 barbadian ETT. CXR was ordered and reviewed. Pt tolerated the procedure well.
[2017-11-12] MEDS: Ipratropium/Albuterol Neb 3 ML IH SCH ×6 (05:14→23:35)
[2017-11-12] MEDS: FentaNYL (PF) 1,000 MCG in 0.9 % Sodium Chloride 80 ML IVC SCH ×2 (05:22→19:49)
[2017-11-12] MEDS: Pantoprazole 40 MG VIAL IVP SCH (05:23)
[2017-11-12] MEDS: Piperacillin/Tazobactam 3.375 GM in 0.9 % Sodium Chloride Mini Bag 100 ML IVPB SCH ×2 (05:23→18:09)
[2017-11-12] MEDS: *HR* Heparin 5,000 UNIT/ML VIAL SQ SCH ×2 (05:24→18:09)
[2017-11-12 06:38] LABS: ABG Base Excess 3 mEq/L (-2 to 3); ABG HCO3 29 mEq/L (21-27); ABG Oxygen Saturation 96 % (95-98); ABG PCO2 57 mmHg (35-45); ABG PH 7.32 pH Units (7.32-7.45); ABG PO2 90 mmHg (85-104); ABG TCO2 31 mEq/L (20-26); Blood Gas Modality ASSIST CONTROL; Blood Gas PEEP 5 cm H2O; Blood Gas Respiration Rate 18; Blood Gas VT 400 cc
[2017-11-12] MEDS ORDERED: Piperacillin/Tazobactam 3.375 GM in 0.9 % Sodium Chloride Mini Bag 100 ML IVPB SCH (08:00)
[2017-11-12] MEDS ORDERED: *HR* LORazepam 2 MG/ML VIAL IVP ONE (08:28)
[2017-11-12] MEDS ORDERED: *HR* Midazolam HCl 5 MG/5 ML VIAL IVP ONE (08:28)
[2017-11-12 08:33] LABS: Adenovirus Not Detected (Not Detect); Bordetella Pertussis Not Detected (Not Detect); Chlamydophila pneumoniae Not Detected (Not Detect); Coronavirus 229E Not Detected (Not Detect); Coronavirus HKU1 Not Detected (Not Detect); Coronavirus NL63 Not Detected (Not Detect); Coronavirus OC43 Not Detected (Not Detect); Human Metapneumovirus ***DETECTED*** (Not Detect); Human Rhinovirus/Enterovirus Not Detected (Not Detect); Influenza A Subtype 2009 H1 Not Detected (Not Detect); Influenza A Untypeable Not Detected (Not Detect); Influenza B Not Detected (Not Detect); Mycoplasma pneumoniae Not Detected (Not Detect); Parainfluenza Virus 1 Not Detected (Not Detect); Parainfluenza Virus 2 Not Detected (Not Detect); Parainfluenza Virus 3 Not Detected (Not Detect); Parainfluenza Virus 4 Not Detected (Not Detect); Respiratory Syncytial Virus Not Detected (Not Detect)
--- NOTE | 2017-11-12 08:39 | Pulmonology Consult Note ---
<Benito Hatfield - Last Filed: 11/12/17 12:30> Date of Encounter: 11/12/17 Time of Encounter: 08:39 Assessment and Plan (1) Acute on chronic respiratory failure with hypoxia Current Visit: Yes Status: Acute COPD requiring baseline home O2 of 4-Lpm and BiPAP with which she is stated to be non-compliant. Dyspneic prompting presentation to ED. Admitted to ICU with worsening ABGs on BiPAP requiring intubation; ABGs improved in short timeframe. Imaging supporting of RLL consolidation/PNA and respiratory infection panel reveals Human Metapneumovirus. On mechanical ventilator and receiving antibiotics. Plan: - Cont Vanc/Zosyn (day 1); de-escalate as able as cultures return - BC & Sputum C&S pending - Cont bronchodilators & Solu-Medrol for time being - Wean from vent as able with daily spontaneous breathing trials - Titrate sedation to acceptable low with at least once daily awake trials - Daily ABGs - ECHO pending; stop serial troponins as unlikely to be secondary to ACS - Strict monitoring of I/Os; attend to nephrology recs & hemodialysis fluid relief - Monitor vitals closely and titrate BP meds as needed; so far pressures have been normotensive - Daily CBC, BMP, Mg++, PO4-- - FSBG per protocol DVT prophylaxis: subcutaneous heparin GI prophylaxis: IV Protonix 40mg daily Diet: may need to initiate tube feeds if unable to wean from vent in AM (11/13/17) (2) Pneumonia Current Visit: Yes Status: Acute RLL infiltrate on imaging during initial work up. Treating with Vanco and Zosyn at this time. Blood cultures pending. Qualifiers: Pneumonia type: due to unspecified organism Laterality: right Lung location: lower lobe of lung Qualified Code(s): J18.1 - Lobar pneumonia, unspecified organism (3) COPD (chronic obstructive pulmonary disease) Current Visit: No Status: Chronic As above Qualifiers: COPD type: emphysema Emphysema type: unspecified Qualified Code(s): J43.9 - Emphysema, unspecified (4) ESRD (end stage renal disease) Current Visit: No Status: Chronic Nephrology has been consulted. Creatinine was 4.12 this AM. Likely continue HD on inpatient basis; awaiting nephro plan. (5) CAD (coronary artery disease) Current Visit: No Status: Chronic Does have elevated troponin which appears plateaued; in setting of ESRD, likely volume overload & demand ischemia. ECHO pending. Qualifiers: Coronary Disease-Associated Artery/Lesion type: bypass graft [place] vs. transplanted heart: [place] heart Associated angina: with unspecified angina Qualified Code(s): I25.709 - Atherosclerosis of coronary artery bypass graft(s) , unspecified, with unspecified angina pectoris (6) Anemia in chronic kidney disease Current Visit: No Status: Chronic Qualifiers: Chronic kidney disease stage: unspecified stage Qualified Code(s): N18.9 - Chronic kidney disease, unspecified; D63.1 - Anemia in chronic kidney disease; D63.1 - Anemia in chronic kidney disease (7) DVT prophylaxis Current Visit: Yes Status: Acute History of Present Illness Consult date: 11/12/17 Reason for consult: COPD, hypoxemia Chief complaint: Respiratory Decompensation requiring mechanical ventilation History of present illness: Pt is a 67F with PMH of respiratory failure, COPD, O2-dependence, chronic anemia , and ESRD-on HD. Per chart review, has history of chronic respiratory failure due to COPD requiring 4L via NC and BiPAP at night which patient is apparently not consistent with; she also smokes 1.5 ppd. Pt presented 11/11/17 with gradually worsening shortness of breath. Saturating in the 70's on room air initially requiring BiPAP. ED workup revealed possible RLL pneumonia and elevated troponin/d-dimer, but no evidence of PE on CTA. Pt started on Abx and admitted to the ICU. ABGs continued to worsen on BiPAP, so patient was intubated around 0500 this AM with rapidly improving blood gases. Creatinine levels chronically elevated due to ESRD, which likely explains the static troponin elevations as well. Nephrology is onboard and pt does receive hemodialysis routinely, but apparently missed an appointment on Monday. Respiratory infection panel revealed human metapneumovirus. Blood cultures are pending at this time. Pt is currently on Vanco & Zosyn. Vitals have been stable since ET placement this AM. Past Med Surg Social Fam HX - Past Medical History Source: old records reviewed, nursing notes reviewed Medical history: arthritis, dialysis, hyperlipidemia, hypertension, renal disease, thyroid disease Psychiatric history: anxiety, depression - Past Surgical History Surgical History: coronary bypass (CABG), other (Left arm dialysis shunt) - Social History Smoking Status: Current every day smoker Smokeless Tobacco Status: No Alcohol use: none Drug use: none - Family History Brother Family Member Ethnicity: Unknown Hx Family Cardiac Disorders: Yes (one brother passed sudden heart attack) Mother Living Status: Hx Family Cancer: Yes (lung cancer) Father Living Status: Hx Family Cancer: Yes (lung cancer) Medications and Allergies Albuterol Sulfate [Albuterol Inhaler] 2 puff IH Q4H PRN 06/02/15 [History] Atorvastatin [Lipitor] 40 mg PO HS 06/02/15 [History] Citalopram Hydrobromide [Citalopram HBr] 20 mg PO QAM 06/02/15 [History] Levothyroxine [Synthroid] 200 mcg PO QAM 06/02/15 [History] Metoprolol Tartrate 12.5 mg PO BID 06/02/15 [History] Omeprazole 40 mg PO QAM 06/02/15 [History] OxyCODONE Immed Rel [Roxicodone 10 MG] 10 mg PO Q6H PRN 06/02/15 [History] Aspirin 81 mg PO DAILY 09/22/15 [History] Docusate [Colace] 100 mg PO BID PRN 09/22/15 [History] B Complex with Vitamin C [Mary Ann-Bee with C] 1 tab PO DAILY 02/22/16 [History] Sevelamer [Renvela] 800 mg PO TIDWM 08/29/16 [History] Fluticasone/Salmeterol [Advair Hfa 115-21 Mcg Inhaler] 2 puff IH BID 11/14/16 [ History] Ipratropium/Albuterol Neb [Duoneb] 3 ml IH QID PRN 11/14/16 [History] Renal Vitamin [Renal Caps Softgel] 1 mg PO DAILY 11/14/16 [History] Umeclidinium [place] [Incruse Ellipta] 62.5 mcg IH DAILY 11/12/17 [History] 3 Allergy/AdvReac Type Severity Reaction Status Date / Time ceftriaxone [From Rocephin] Allergy Hives Verified 11/11/17 20:19 levofloxacin [From Levaquin] Allergy Hives Verified 11/11/17 20:19 ROS unobtainable: due to mental status All Systems: The remainder of the systems were reviewed and are negative Physical Examination Vital Signs: Vital Signs, Last 4 Hours Temp Pulse Resp BP Pulse Ox 11/12/17 08:16 16 151/72 96 11/12/17 08:15 97.8 F 11/12/17 06:00 76 16 116/59 94 11/12/17 05:20 18 115/59 94 11/12/17 05:00 99 16 149/103 95 General appearance: other (Deeply sedated) Eyes: nonicteric Neck: supple Effort: normal Auscultation: bilateral: wheezes Cardiovascular: regular rate and rhythm Gastrointestinal: soft (does not wince with palpation), non-distended Integumentary: normal Extremities: no cyanosis, no edema, pulses normal unable to assess due to mental status Ventilator Settings Ventilator Settings: Ventilator Settings, Last 8 Hours Ventilator Mode A/C Ventilator Mode A/C Ventilator Mode A/C Ventilator Mode A/C Ventilator Mode A/C Ventilator Tidal Volume 400 Setting Ventilator Tidal Volume 400 Setting Ventilator Tidal Volume 400 Setting Ventilator Tidal Volume 400 Setting Ventilator Tidal Volume 400 Setting Ventilator Respiratory Rate 18 Setting Ventilator Respiratory Rate 18 Setting Ventilator Respiratory Rate 18 Setting Ventilator Respiratory Rate 18 Setting Ventilator Respiratory Rate 14 Setting Actual Respiratory Rate 18 Actual Respiratory Rate 18 Actual Respiratory Rate 18 Actual Respiratory Rate 14 Positive End Expiratory 5 Pressure Positive End Expiratory 5 Pressure Positive End Expiratory 5 Pressure Positive End Expiratory 5 Pressure Positive End Expiratory 5 Pressure Peak Inspiratory Airway 30 Pressure Peak Inspiratory Airway 28 Pressure Peak Inspiratory Airway 28 Pressure Results - Laboratory Findings CBC and BMP: 11/12/17 03:10 11/12/17 03:10 ABG ABG pH 7.32 pH Units (7.32-7.45) D 11/12/17 06:35 ABG pCO2 57 mmHg (35-45) H D 11/12/17 06:35 ABG pO2 90 mmHg (85-104) 11/12/17 06:35 ABG O2 Saturation 96 % (95-98) 11/12/17 06:35 PT/INR, D-dimer D-Dimer 2242 ng/mLFEU (0-500) H 11/11/17 20:37 Abnormal lab findings: Abnormal lab results RBC 2.99 M/mcL (3.82-4.97) L 11/12/17 03:10 Hgb 9.2 g/dL (11.5-15.4) L 11/12/17 03:10 Hct 30.1 % (35.3-44.9) L 11/12/17 03:10 MCV 100.7 fL (83.0-100.0) H 11/12/17 03:10 MCHC 30.6 g/dL (31.6-35.5) L 11/12/17 03:10 RDW 14.7 % (11.5-14.5) H 11/12/17 03:10 Plt Count 112 K/mcL (140-400) L 11/12/17 03:10 MPV 9.3 fL (9.4-12.4) L 11/12/17 03:10 Band Neutrophils % 6.0 % (0-4) H 11/11/17 20:26 Lymphocytes # 0.2 K/mcL (0.6-4.6) L 11/12/17 03:10 Toxic Granulation Present (Not Present) A 11/11/17 20:26 Platelet Estimate Decreased (Normal) L 11/12/17 03:10 D-Dimer 2242 ng/mLFEU (0-500) H 11/11/17 20:37 ABG pCO2 57 mmHg (35-45) H D 11/12/17 06:35 ABG HCO3 29 mEq/L (21-27) H 11/12/17 06:35 ABG Total CO2 31 mEq/L (20-26) H 11/12/17 06:35 BUN 27 mg/dL (8-23) H 11/12/17 03:10 Creatinine 4.12 mg/dL (0.60-1.20) H 11/12/17 03:10 Est GFR ( Amer) 13 (> 60) L 11/12/17 03:10 Est GFR (Non-Af Amer) 11 (> 60) L 11/12/17 03:10 Glucose 119 mg/dL (70-105) H 11/12/17 03:10 POC Glucose 100 mg/dL (70-99) H 11/11/17 23:58 Troponin I 0.06 ng/mL (< 0.04) H* 11/12/17 03:10 B-Natriuretic Peptide 969 pg/mL (Less than 100) H 11/11/17 20:26 Human Metapneumovir PCR DETECTED (Not Detect) A 11/12/17 07:20 Consult Discharge Plan - Plan Referrals: Yonatan Aleman, [Primary Care Provider] - <Eamon Kumar - Last Filed: 11/12/17 13:03> Date of Encounter: 11/12/17 All Systems: The remainder of the systems were reviewed and are negative Physical Examination Vital Signs: Vital Signs, Last 4 Hours Temp Pulse Resp BP Pulse Ox 11/12/17 11:49 121/62 93 11/12/17 11:00 99.4 F 85 18 121/62 93 11/12/17 10:00 85 18 125/63 92 11/12/17 09:33 18 93 11/12/17 09:00 84 17 134/64 92 Ventilator Settings Ventilator Settings: Ventilator Settings, Last 8 Hours Ventilator Mode A/C Ventilator Mode A/C Ventilator Mode A/C Ventilator Mode A/C Ventilator Mode A/C Ventilator Mode A/C Ventilator Mode A/C Ventilator Mode A/C Ventilator Mode A/C Ventilator Tidal Volume 400 Setting Ventilator Tidal Volume 400 Setting Ventilator Tidal Volume 400 Setting Ventilator Tidal Volume 400 Setting Ventilator Tidal Volume 400 Setting Ventilator Tidal Volume 400 Setting Ventilator Tidal Volume 400 Setting Ventilator Tidal Volume 400 Setting Ventilator Tidal Volume 400 Setting Ventilator Respiratory Rate 18 Setting Ventilator Respiratory Rate 18 Setting Ventilator Respiratory Rate 18 Setting Ventilator Respiratory Rate 18 Setting Ventilator Respiratory Rate 18 Setting Ventilator Respiratory Rate 18 Setting Ventilator Respiratory Rate 18 Setting Ventilator Respiratory Rate 18 Setting Ventilator Respiratory Rate 14 Setting Actual Respiratory Rate 18 Actual Respiratory Rate 18 Actual Respiratory Rate 18 Actual Respiratory Rate 18 Actual Respiratory Rate 18 Actual Respiratory Rate 18 Actual Respiratory Rate 18 Actual Respiratory Rate 18 Actual Respiratory Rate 18 Actual Respiratory Rate 18 Actual Respiratory Rate 14 Positive End Expiratory 5 Pressure Positive End Expiratory 5 Pressure Positive End Expiratory 5 Pressure Positive End Expiratory 5 Pressure Positive End Expiratory 5 Pressure Positive End Expiratory 5 Pressure Positive End Expiratory 5 Pressure Positive End Expiratory 5 Pressure Positive End Expiratory 5 Pressure Positive End Expiratory 5 Pressure Positive End Expiratory 5 Pressure Positive End Expiratory 5 Pressure Peak Inspiratory Airway 29 Pressure Peak Inspiratory Airway 32 Pressure Peak Inspiratory Airway 30 Pressure Peak Inspiratory Airway 29 Pressure Peak Inspiratory Airway 30 Pressure Peak Inspiratory Airway 30 Pressure Peak Inspiratory Airway 30 Pressure Peak Inspiratory Airway 31 Pressure Peak Inspiratory Airway 28 Pressure Peak Inspiratory Airway 28 Pressure Results - Laboratory Findings CBC and BMP: 11/12/17 03:10 11/12/17 03:10 ABG ABG pH 7.32 pH Units (7.32-7.45) D 11/12/17 06:35 ABG pCO2 57 mmHg (35-45) H D 11/12/17 06:35 ABG pO2 90 mmHg (85-104) 11/12/17 06:35 ABG O2 Saturation 96 % (95-98) 11/12/17 06:35 PT/INR, D-dimer D-Dimer 2242 ng/mLFEU (0-500) H 11/11/17 20:37 Abnormal lab findings: Abnormal lab results RBC 2.99 M/mcL (3.82-4.97) L 11/12/17 03:10 Hgb 9.2 g/dL (11.5-15.4) L 11/12/17 03:10 Hct 30.1 % (35.3-44.9) L 11/12/17 03:10 MCV 100.7 fL (83.0-100.0) H 11/12/17 03:10 MCHC 30.6 g/dL (31.6-35.5) L 11/12/17 03:10 RDW 14.7 % (11.5-14.5) H 11/12/17 03:10 Plt Count 112 K/mcL (140-400) L 11/12/17 03:10 MPV 9.3 fL (9.4-12.4) L 11/12/17 03:10 Band Neutrophils % 6.0 % (0-4) H 11/11/17 20:26 Lymphocytes # 0.2 K/mcL (0.6-4.6) L 11/12/17 03:10 Toxic Granulation Present (Not Present) A 11/11/17 20:26 Platelet Estimate Decreased (Normal) L 11/12/17 03:10 D-Dimer 2242 ng/mLFEU (0-500) H 11/11/17 20:37 ABG pCO2 57 mmHg (35-45) H D 11/12/17 06:35 ABG HCO3 29 mEq/L (21-27) H 11/12/17 06:35 ABG Total CO2 31 mEq/L (20-26) H 11/12/17 06:35 BUN 27 mg/dL (8-23) H 11/12/17 03:10 Creatinine 4.12 mg/dL (0.60-1.20) H 11/12/17 03:10 Est GFR ( Amer) 13 (> 60) L 11/12/17 03:10 Est GFR (Non-Af Amer) 11 (> 60) L 11/12/17 03:10 Glucose 119 mg/dL (70-105) H 11/12/17 03:10 POC Glucose 111 mg/dL (70-99) H 11/12/17 11:48 Troponin I 0.06 ng/mL (< 0.04) H* 11/12/17 03:10 B-Natriuretic Peptide 969 pg/mL (Less than 100) H 11/11/17 20:26 Human Metapneumovir PCR DETECTED (Not Detect) A 11/12/17 07:20 - Microbiology Findings Microbiology Findings: Microbiology, Last 48 Hours 11/12/17 10:30 Sputum Culture - Preliminary Sputum - Clinical Findings Intake & Output: Intake & Output 11/11/17 11/12/17 11/12/17 23:59 07:59 15:59 Intake Total 55 / 55 Output Total 0 / 0 165 / 165 Balance 0 / 0 -110 / -110 - Attending Attestation I examined this patient and my medical decision-making was reviewed with the Resident Physician. I agree with the documented findings, disposition and treatment plan as described except to the extent set forth below. We independently had [id number] contact with the patient I spent 35min of Critical Care time with this patient. It involved decision making of high complexity to assess, manipulate, and support vital organ system failure and/or to prevent further life threatening deterioration of the patient' s condition. The time involved in the performance of separately reportable procedures was not counted toward critical care time. Patient seen and examined at bedside Labs, radiology, chart personally reviewed. Management was reviewed during multidisciplinary critical care rounds. APPLICATION DEVELOPMENT SPECIALIST: Intubated and sedated: Hall 2-3 daily sedation holiday. Switch from benzo to precedex and fentanyl infusion to achieve Hall goal. Pulm: Acute on chronic hypoxic hypercarbic respiratory failure secondary to viral pneumonia complicated with COPD exacerbation and concern for aspiration. Has required intubation after failure of noninvasive ventilation . She is on vent with acceptable gas exchange not a candidate for spontaneous breathing trial today continue bronchodilators and steroids and antimicrobials assess daily for spontaneous breathing trial acceptability Cards: Pressure monitored and currently stable she has a history of hypertension which we are currently treating aggressively. FEN-GI: Nothing by mouth for now GI prophylaxis given Renal: ESRD consult nephrology for dialysis I suspect hydrostatic pulmonary edema complicating underlying course ID: Treating broadly with antimicrobials for hospital associated organisms and atypicals with planned to de-escalate based upon culture and sensitivities Heme/Onc: DVT prophylaxis given Endo: Glucose Monitored Integ/MSK: Skin Care per routine ICU Nursing Protocol to prevent ulcers. Lines: All lines examined without evidence of infection : Dispo: ICU for critical illness CODE: Full code
[2017-11-12] MEDS: Aspirin 81 MG TAB.CHEW PO SCH (08:47)
[2017-11-12] MEDS: Dexmedetomidine HCl 400 MCG/100 ML MLS IVC SCH (08:47)
[2017-11-12] MEDS: MethylPREDNISolone 40 MG/ML VIAL IVP SCH ×3 (08:47→22:15)
[2017-11-12] MEDS: NIFEdipine XL (24 HR) 30 MG TAB.ER.24 PO SCH (08:47)
[2017-11-12] MEDS: Chlorhexidine Rinse 15 ML MOUTHWASH MM SCH ×2 (08:47→19:48)
[2017-11-12] MEDS: Lacri-Lube 3.5 GM TUBE BOTH EYES SCH ×5 (08:48→22:17)
[2017-11-12] MEDS: 0.9 % Sodium Chloride 500 ML IVC SCH (08:49)
--- NOTE | 2017-11-12 10:15 | Nephrology Consult Note ---
Date of Encounter: 11/12/17 Time of Encounter: 09:30 Assessment and Plan (1) End stage renal disease Current Visit: No Status: Chronic Acute on chronic respiratory failure with hypoxia and hypercapnia in setting of COPD exac, possible RLL pneumonia. ESRD-No HD today, keeping MWF schedule. Will continue to monitor. History of Present Illness - Reason for Consult end stage renal disease - History of Present Illness Ms. Orellana is a 67 year old female with ESRD who dialyzes at [facility] on MWF. Last dialysis on Monday, however missed HD on Monday and has history of missing HD 1-3 times per month. Other PMH-arthritis, dialysis, hyperlipidemia, hypertension, renal disease, thyroid disease, coronary bypass (CABG), (Left arm dialysis shunt),anxiety, depression. Ms. Orellana is in ICU, admitted with acute on chronic respiratory failure with hypoxia and hypercapnia, intubated and sedated. Her HPI is obtained from prior notes. 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 Her is currently in ICU with Human Metapneumovirus. She was noted to not be looking well by staff. O2 sat was in 70's and she was sent to ER. D-Dimer 2200, Troponin 0.05, chronically elevated due to renal disease, BNP 969. CXR showed possible RLL pneumonia, started on Vanco and Meropenem. CTA negative for PE, did show multifocal airspace disease suspicious for aspiration. Past Med Surg Social Fam HX - Past Medical History Medical history: arthritis, dialysis, hyperlipidemia, hypertension, renal disease, thyroid disease Psychiatric history: anxiety, depression - Past Surgical History Surgical History: coronary bypass (CABG), other (Left arm dialysis shunt) - Social History Smoking Status: Current every day smoker Smokeless Tobacco Status: No Alcohol use: none Drug use: none - Family History Brother Family Member Ethnicity: Unknown Hx Family Cardiac Disorders: Yes (one brother passed sudden heart attack) Mother Living Status: Hx Family Cancer: Yes (lung cancer) Father Living Status: Hx Family Cancer: Yes (lung cancer) Medications and Allergies Albuterol Sulfate [Albuterol Inhaler] 2 puff IH Q4H PRN 06/02/15 [History] Atorvastatin [Lipitor] 40 mg PO HS 06/02/15 [History] Citalopram Hydrobromide [Citalopram HBr] 20 mg PO QAM 06/02/15 [History] Levothyroxine [Synthroid] 200 mcg PO QAM 06/02/15 [History] Losartan Potassium 50 mg PO QAM 06/02/15 [History] Metoprolol Tartrate 25 mg PO BID 06/02/15 [History] Omeprazole 40 mg PO QAM 06/02/15 [History] OxyCODONE Immed Rel [Roxicodone 10 MG] 10 mg PO Q6H PRN 06/02/15 [History] Aspirin 81 mg PO DAILY 09/22/15 [History] Docusate [Colace] 100 mg PO BID PRN 09/22/15 [History] B Complex with Vitamin C [Mary Ann-Bee with C] 1 each PO DAILY 02/22/16 [History] Sevelamer [Renvela] 800 mg PO TIDWM 08/29/16 [History] cloNIDine HCl [CloNIDine HCl] 0.1 mg PO DAILY PRN 08/29/16 [History] Fluticasone/Salmeterol [Advair Hfa 115-21 Mcg Inhaler] 2 puff IH BID 11/14/16 [ History] Ipratropium/Albuterol Neb [Duoneb] 3 ml IH QID PRN 11/14/16 [History] NIFEdipine [Nifedipine ER] 90 mg PO DAILY 11/14/16 [History] Renal Vitamin [Renal Caps Softgel] 1 mg PO DAILY 11/14/16 [History] Lidocaine Patch [Lidoderm 5% patch] 1 each TP DAILY 7 Days adh..patch 11/16/16 [Rx] Levofloxacin [Levaquin] 500 mg PO Q48H #2 tablet 12/19/16 [Rx] 3 Allergy/AdvReac Type Severity Reaction Status Date / Time ceftriaxone [From Rocephin] Allergy Hives Verified 11/11/17 20:19 levofloxacin [From Levaquin] Allergy Hives Verified 11/11/17 20:19 Review of Systems ROS unobtainable: due to endotracheal tube Exam - Vital Signs Vital signs: Initial Vital Signs Temp Pulse Resp BP Pulse Ox 98.1 F 100 18 139/81 74 11/11/17 20:18 11/11/17 20:18 11/11/17 20:18 11/11/17 20:18 11/11/17 20:18 Vital Signs - Last 8 Hours Temp Pulse Resp BP Pulse Ox 11/12/17 09:00 84 17 134/64 92 11/12/17 08:16 16 151/72 96 11/12/17 08:15 97.8 F 11/12/17 08:00 80 18 151/72 97 11/12/17 07:15 87 22 156/85 97 11/12/17 07:00 75 18 159/75 99 11/12/17 06:00 76 16 116/59 94 11/12/17 05:20 18 115/59 94 11/12/17 05:00 99 16 149/103 95 Intake and Output 11/11/17 11/12/17 11/12/17 23:59 07:59 15:59 Intake Total 55 / 55 Output Total 0 / 0 Balance 0 / 0 55 / 55 Intake: IV Fluids 55 / 55 Versed 50 MG In 0.9 % Sodium 55 / 55 Chloride 90 ML @ 2 MG/HR 4 mls/ hr IVC CONT MILES Rx#:[id number] Output: Catheter 0 / 0 - General Appearance General appearance: well-developed, well-nourished, appears started age EENT: mucous membranes moist Neck: no JVD Respiratory: wheezing, rhonchi Cardiology: no edema, regular rate, regular rhythm - Dialysis Access Dialysis Vascular Access: Arteriovenous Fistula Gastrointestinal: normoactive bowel sounds, no tenderness Integumentary: warm and dry Results - Lab Results 11/12/17 03:10 11/12/17 03:10 Most recent lab results ABG pH 7.32 pH Units (7.32-7.45) D 11/12/17 06:35 ABG pCO2 57 mmHg (35-45) H D 11/12/17 06:35 ABG pO2 90 mmHg (85-104) 11/12/17 06:35 ABG HCO3 29 mEq/L (21-27) H 11/12/17 06:35 ABG O2 Saturation 96 % (95-98) 11/12/17 06:35 Calcium 8.9 mg/dL (8.6-10.3) 11/12/17 03:10 Magnesium 2.1 mg/dL (1.6-2.6) 11/12/17 03:10 Consult Discharge Plan - Plan Referrals: Yonatan Aleman DO [Primary Care Provider] -
[2017-11-12] MEDS: Budesonide/Formoterol 80/4.5 MDI IH SCH ×2 (11:37→19:52)
[2017-11-12] MEDS ORDERED: Meropenem 1,000 MG in 0.9 % Sodium Chloride Mini Bag 100 ML IVPB ONE (21:31)
[2017-11-13] MEDS: Ipratropium/Albuterol Neb 3 ML IH SCH ×6 (03:30→20:32)
[2017-11-13 04:13] LABS: Basophils % 0.1 %; Hematocrit 28.1 % (35.3-44.9); Hemoglobin 8.6 g/dL (11.5-15.4); Immature Granulocytes % 1.5 % (0-4); Lymphocytes # 0.2 K/mcL (0.6-4.6); Lymphocytes % 2.5 %; Mean Corpuscular HGB Conc 30.6 g/dL (31.6-35.5); Mean Corpuscular Hemoglobin 30.9 pg (28.0-33.3); Mean Corpuscular Volume 101.1 fL (83.0-100.0); Mean Platelet Volume 9.5 fL (9.4-12.4); Monocytes # 0.2 K/mcL (0.0-1.3); Monocytes % 2.9 %; Platelet Count 105 K/mcL (140-400); Red Blood Count 2.78 M/mcL (3.82-4.97); Red Cell Distribution Width 14.6 % (11.5-14.5)
[2017-11-13] MEDS: Lacri-Lube 3.5 GM TUBE BOTH EYES SCH ×2 (04:13→09:38)
[2017-11-13 04:25] LABS: Calcium 9.8 mg/dL (8.6-10.3); Magnesium 2.1 mg/dL (1.6-2.6); Phosphorous 6.6 mg/dL (2.7-4.5); Potassium 3.9 mEq/L (3.5-5.1)
[2017-11-13 04:37] LABS: Neutrophils # 6.3 K/mcL (1.6-8.9)
[2017-11-13] MEDS: FentaNYL (PF) 1,000 MCG in 0.9 % Sodium Chloride 80 ML IVC SCH (04:48)
[2017-11-13 05:16] LABS: ABG Base Excess 2 mEq/L (-2 to 3); ABG HCO3 28 mEq/L (21-27); ABG Oxygen Saturation 92 % (95-98); ABG PCO2 55 mmHg (35-45); ABG PH 7.32 pH Units (7.32-7.45); ABG PO2 70 mmHg (85-104); ABG TCO2 30 mEq/L (20-26); Blood Gas Modality ASSIST CONTROL; Blood Gas PEEP 8 cm H2O; Blood Gas Respiration Rate 18; Blood Gas VT 400 cc
[2017-11-13] MEDS: Pantoprazole 40 MG VIAL IVP SCH (05:23)
[2017-11-13] MEDS: Piperacillin/Tazobactam 3.375 GM in 0.9 % Sodium Chloride Mini Bag 100 ML IVPB SCH ×2 (05:24→18:35)
[2017-11-13] MEDS: *HR* Heparin 5,000 UNIT/ML VIAL SQ SCH ×2 (05:26→18:35)
[2017-11-13 05:53] LABS: Platelet Estimate Decreased (Normal)
--- NOTE | 2017-11-13 08:14 | Pulmonology Progress Note ---
<Aubrey Liriano M - Last Filed: 11/13/17 09:56> Date of Encounter: 11/13/17 Objective PUL Vital signs: Last Vital Signs Temp 98.3 F 11/13/17 08:00 Pulse 105 11/13/17 08:00 Resp 13 11/13/17 08:31 BP 136/71 11/13/17 08:23 Pulse Ox 94 11/13/17 08:23 Ventilator Settings Ventilator Settings: Ventilator Settings, Last 8 Hours Ventilator Mode CPAP Ventilator Mode CPAP Ventilator Mode CPAP Ventilator Mode CPAP Ventilator Mode A/C Ventilator Mode A/C Ventilator Mode A/C Ventilator Mode A/C Ventilator Mode A/C Ventilator Mode A/C Ventilator Tidal Volume 400 Setting Ventilator Tidal Volume 400 Setting Ventilator Tidal Volume 400 Setting Ventilator Tidal Volume 400 Setting Ventilator Tidal Volume 400 Setting Ventilator Tidal Volume 400 Setting Ventilator Respiratory Rate 18 Setting Ventilator Respiratory Rate 18 Setting Ventilator Respiratory Rate 18 Setting Ventilator Respiratory Rate 18 Setting Ventilator Respiratory Rate 18 Setting Ventilator Respiratory Rate 18 Setting Actual Respiratory Rate 14 Actual Respiratory Rate 15 Actual Respiratory Rate 17 Actual Respiratory Rate 13 Actual Respiratory Rate 18 Actual Respiratory Rate 18 Actual Respiratory Rate 18 Actual Respiratory Rate 18 Positive End Expiratory 5 Pressure Positive End Expiratory 5 Pressure Positive End Expiratory 5 Pressure Positive End Expiratory 8 Pressure Positive End Expiratory 8 Pressure Positive End Expiratory 8 Pressure Positive End Expiratory 5 Pressure Positive End Expiratory 5 Pressure Positive End Expiratory 5 Pressure Positive End Expiratory 5 Pressure Peak Inspiratory Airway 11 Pressure Peak Inspiratory Airway 14 Pressure Peak Inspiratory Airway 31 Pressure Peak Inspiratory Airway 31 Pressure Peak Inspiratory Airway 31 Pressure Peak Inspiratory Airway 32 Pressure Results - Laboratory Findings CBC and BMP: 11/13/17 02:43 11/13/17 02:43 ABG ABG pH 7.32 pH Units (7.32-7.45) 11/13/17 05:12 ABG pCO2 55 mmHg (35-45) H 11/13/17 05:12 ABG pO2 70 mmHg (85-104) L 11/13/17 05:12 ABG O2 Saturation 92 % (95-98) L 11/13/17 05:12 PT/INR, D-dimer D-Dimer 2242 ng/mLFEU (0-500) H 11/11/17 20:37 Abnormal lab findings: Abnormal lab results RBC 2.78 M/mcL (3.82-4.97) L 11/13/17 02:43 Hgb 8.6 g/dL (11.5-15.4) L 11/13/17 02:43 Hct 28.1 % (35.3-44.9) L 11/13/17 02:43 MCV 101.1 fL (83.0-100.0) H 11/13/17 02:43 MCHC 30.6 g/dL (31.6-35.5) L 11/13/17 02:43 RDW 14.6 % (11.5-14.5) H 11/13/17 02:43 Plt Count 105 K/mcL (140-400) L 11/13/17 02:43 Band Neutrophils % 6.0 % (0-4) H 11/11/17 20:26 Lymphocytes # 0.2 K/mcL (0.6-4.6) L 11/13/17 02:43 Toxic Granulation Present (Not Present) A 11/11/17 20:26 Platelet Estimate Decreased (Normal) L 11/13/17 02:43 D-Dimer 2242 ng/mLFEU (0-500) H 11/11/17 20:37 ABG pCO2 55 mmHg (35-45) H 11/13/17 05:12 ABG pO2 70 mmHg (85-104) L 11/13/17 05:12 ABG HCO3 28 mEq/L (21-27) H 11/13/17 05:12 ABG Total CO2 30 mEq/L (20-26) H 11/13/17 05:12 ABG O2 Saturation 92 % (95-98) L 11/13/17 05:12 BUN 42 mg/dL (8-23) H 11/13/17 02:43 Creatinine 5.69 mg/dL (0.60-1.20) H 11/13/17 02:43 Est GFR ( Amer) 9 (> 60) L 11/13/17 02:43 Est GFR (Non-Af Amer) 7 (> 60) L 11/13/17 02:43 Glucose 136 mg/dL (70-105) H 11/13/17 02:43 POC Glucose 125 mg/dL (70-99) H 11/12/17 23:32 Phosphorus 6.6 mg/dL (2.7-4.5) H 11/13/17 02:43 Troponin I 0.06 ng/mL (< 0.04) H* 11/12/17 03:10 B-Natriuretic Peptide 969 pg/mL (Less than 100) H 11/11/17 20:26 Human Metapneumovir PCR DETECTED (Not Detect) A 11/12/17 07:20 - Microbiology Findings Microbiology Findings: Microbiology, Last 48 Hours 11/12/17 10:30 Sputum Culture - Preliminary Sputum - Clinical Findings Intake & Output: Intake & Output 11/12/17 11/13/17 11/13/17 23:59 07:59 15:59 Intake Total 200 / 200 113 / 113 Output Total 100 / 100 0 / 0 Balance 100 / 100 113 / 113 Weight 63 kg Consult Discharge Plan - Plan Referrals: Yonatan Aleman DO [Primary Care Provider] - - Attending Attestation I examined this patient and my medical decision-making was reviewed with the Resident Physician. I agree with the documented findings, disposition and treatment plan as described except to the extent set forth below. Patient seen and examined. Labs, radiology, chart personally reviewed. Agree with resident's history and physical, assessment, plan with following comments: [employer] HEL[employer]: Patient follows commands, Pulmonary: Acceptable oxygenation and ventilation and patient was tolerating spontaneous breathing trial. Should not extubated successfully and to continue bronchodilators. Cardiovascular: stable GI: Nutrition per dietary and GI prophylaxis per routine Heme: DVT prophylaxis per routine ID: Continue antibiotics and plan to de-escalation Renal; urine out put and renal funtion reviewed Endorcine: blood glucose is monitored Lines: all lines checked and no evidence of infections Skin: skin care to prevent pressure ulcers per nursing routine care <Lorenzo Doyle - Last Filed: 11/13/17 10:54> Date of Encounter: 11/13/17 Time of Encounter: 08:12 Assessment and Plan (1) Acute on chronic respiratory failure with hypoxia Current Visit: Yes Status: Acute Acute respiratory failure with hypoxia initially requiring BiPAP with subsequent escalation to intubation. Multifactorial secondary to underlying COPD, concern for aspiration pneumonia as well as viral infection with human medical pneumonia virus. Currently requiring minimal ventilatory support. Sputum culture demonstrates many WBCs as well as moderate gram-positive cocci, a few gram-negative rods and a few gram-positive rods. She remains on vancomycin and Zosyn for empiric coverage pending blood culture results. ABG daily while intubated. Anticipate extubation today. (2) ESRD (end stage renal disease) on dialysis Current Visit: Yes Status: Chronic End-stage renal disease requiring hemodialysis. Nephrology consulted. Plan for dialysis today. Plan to start Aranesp today given her anemia. Continued to trend daily renal function. Strict I/Os Men[place] for volume status monitoring Resume sevelamar (3) Elevated troponin Current Visit: Yes Status: Acute Adynamic elevation in the setting of end-stage renal disease. Likely secondary to acute hypoxic event. (4) Anemia Current Visit: Yes Status: Chronic Currently 8.6. Downtrending from previous. Underlying end-stage renal disease with chronic anemia. Nephrology consulted: Plan to initiate Aranesp. No signs of bleeding. Daily CBCs Qualifiers: Anemia type: due to chronic kidney disease Chronic kidney disease stage: on chronic dialysis Qualified Code(s): N18.6 - End stage renal disease; D63.1 - Anemia in chronic kidney disease; D63.1 - Anemia in chronic kidney disease; Z99.2 - Dependence on renal dialysis; Z99.2 - Dependence on renal dialysis; Z99.2 - Dependence on renal dialysis; Z99.2 - Dependence on renal dialysis (5) Acute exacerbation of chronic obstructive airways disease Current Visit: No Status: Acute Underlying history of COPD. Continue home albuterol and Symbicort regimen. Continue IV Solu-Medrol 40 mg Q8H (6) CAD (coronary artery disease) Current Visit: No Status: Chronic Aspirin 81 mg daily Qualifiers: Coronary Disease-Associated Artery/Lesion type: bypass graft [place] vs. transplanted heart: [place] heart Associated angina: with unspecified angina Qualified Code(s): I25.709 - Atherosclerosis of coronary artery bypass graft(s) , unspecified, with unspecified angina pectoris (7) Hypertension Current Visit: No Status: Chronic Normotensive Continue home Procardia Resume metoprolol Qualifiers: Hypertension type: essential hypertension Qualified Code(s): I10 - Essential (primary) hypertension (8) Hypothyroidism Current Visit: No Status: Chronic Continue Synthroid 200 g Qualifiers: Hypothyroidism type: acquired Qualified Code(s): E03.9 - Hypothyroidism, unspecified (9) DVT prophylaxis Current Visit: Yes Status: Acute Heparin 5000 units subcutaneous Q12H Subjective Principal diagnosis: Acute on chronic respiratory failure with hypoxia Interval history: Vitals and labs over the last 24 hours reviewed. In brief 67-year-old female history of end-stage renal disease requiring hemodialysis admitted on the seventh of this month for acute on chronic respiratory failure with hypoxia necessitating BiPAP with eventual endotracheal intubation who remains in the ICU for ventilatory management. As of this morning she is on minimal sedation opening her eyes spontaneously and following commands. She requires minimal vent settings and is currently on CPAP. She is able to shake her head yes and no. Overall plan for today will be potential extubation if continued improvement on spontaneous. Labs reviewed showing a hemoglobin of 8.6 which is down trending in the setting of her renal disease. No obvious bleeding. She remains on antibiotic therapy for suspected aspiration pneumonia diagnosed by CTA on 11/11. Plan 11/13: Extubated. Bedside swallow eval. Restart metoprolol and sevelamer. Changed tramadol to q12h prn. Hemodialysis today. Started aranesp for anemia. Objective PUL Vital signs: Last Vital Signs Temp 99.6 F 11/13/17 05:13 Pulse 99 11/13/17 06:00 Resp 13 11/13/17 06:23 BP 132/70 11/13/17 06:23 Pulse Ox 93 11/13/17 06:23 General appearance: no acute distress Eyes: nonicteric ENT: other (Endotracheal tube) Neck: supple Effort: other (Mechanically ventilated) Auscultation: bilateral: diminished breath sounds Cardiovascular: regular rate and rhythm, other (2/6 systolic ejection murmur at the upper left sternal border. Well-healed prior sternotomy incision scar) Gastrointestinal: normoactive bowel sounds, soft, non-distended Integumentary: normal Extremities: no cyanosis, no edema, no clubbing, pink and warm, other (Left upper extremity fistula with palpable thrill) Musculoskeletal: no deformities other (Opens eyes spontaneously. Moves all extremities equally. Able to follow commands and nod head yes and no.) other (Unable to assess) Ventilator Settings Ventilator Settings: Ventilator Settings, Last 8 Hours Ventilator Mode CPAP Ventilator Mode A/C Ventilator Mode A/C Ventilator Mode A/C Ventilator Mode A/C Ventilator Mode A/C Ventilator Mode A/C Ventilator Mode A/C Ventilator Mode A/C Ventilator Tidal Volume 400 Setting Ventilator Tidal Volume 400 Setting Ventilator Tidal Volume 400 Setting Ventilator Tidal Volume 400 Setting Ventilator Tidal Volume 400 Setting Ventilator Tidal Volume 400 Setting Ventilator Tidal Volume 400 Setting Ventilator Tidal Volume 400 Setting Ventilator Respiratory Rate 18 Setting Ventilator Respiratory Rate 18 Setting Ventilator Respiratory Rate 18 Setting Ventilator Respiratory Rate 18 Setting Ventilator Respiratory Rate 18 Setting Ventilator Respiratory Rate 18 Setting Ventilator Respiratory Rate 18 Setting Ventilator Respiratory Rate 18 Setting Actual Respiratory Rate 13 Actual Respiratory Rate 18 Actual Respiratory Rate 18 Actual Respiratory Rate 18 Actual Respiratory Rate 18 Actual Respiratory Rate 18 Actual Respiratory Rate 18 Positive End Expiratory 8 Pressure Positive End Expiratory 8 Pressure Positive End Expiratory 8 Pressure Positive End Expiratory 5 Pressure Positive End Expiratory 5 Pressure Positive End Expiratory 5 Pressure Positive End Expiratory 5 Pressure Positive End Expiratory 5 Pressure Positive End Expiratory 5 Pressure Peak Inspiratory Airway 14 Pressure Peak Inspiratory Airway 31 Pressure Peak Inspiratory Airway 31 Pressure Peak Inspiratory Airway 31 Pressure Peak Inspiratory Airway 32 Pressure Peak Inspiratory Airway 31 Pressure Peak Inspiratory Airway 32 Pressure Results - Laboratory Findings CBC and BMP: 11/13/17 02:43 11/13/17 02:43 ABG ABG pH 7.32 pH Units (7.32-7.45) 11/13/17 05:12 ABG pCO2 55 mmHg (35-45) H 11/13/17 05:12 ABG pO2 70 mmHg (85-104) L 11/13/17 05:12 ABG O2 Saturation 92 % (95-98) L 11/13/17 05:12 PT/INR, D-dimer D-Dimer 2242 ng/mLFEU (0-500) H 11/11/17 20:37 Abnormal lab findings: Abnormal lab results RBC 2.78 M/mcL (3.82-4.97) L 11/13/17 02:43 Hgb 8.6 g/dL (11.5-15.4) L 11/13/17 02:43 Hct 28.1 % (35.3-44.9) L 11/13/17 02:43 MCV 101.1 fL (83.0-100.0) H 11/13/17 02:43 MCHC 30.6 g/dL (31.6-35.5) L 11/13/17 02:43 RDW 14.6 % (11.5-14.5) H 11/13/17 02:43 Plt Count 105 K/mcL (140-400) L 11/13/17 02:43 Band Neutrophils % 6.0 % (0-4) H 11/11/17 20:26 Lymphocytes # 0.2 K/mcL (0.6-4.6) L 11/13/17 02:43 Toxic Granulation Present (Not Present) A 11/11/17 20:26 Platelet Estimate Decreased (Normal) L 11/13/17 02:43 D-Dimer 2242 ng/mLFEU (0-500) H 11/11/17 20:37 ABG pCO2 55 mmHg (35-45) H 11/13/17 05:12 ABG pO2 70 mmHg (85-104) L 11/13/17 05:12 ABG HCO3 28 mEq/L (21-27) H 11/13/17 05:12 ABG Total CO2 30 mEq/L (20-26) H 11/13/17 05:12 ABG O2 Saturation 92 % (95-98) L 11/13/17 05:12 BUN 42 mg/dL (8-23) H 11/13/17 02:43 Creatinine 5.69 mg/dL (0.60-1.20) H 11/13/17 02:43 Est GFR ( Amer) 9 (> 60) L 11/13/17 02:43 Est GFR (Non-Af Amer) 7 (> 60) L 11/13/17 02:43 Glucose 136 mg/dL (70-105) H 11/13/17 02:43 POC Glucose 125 mg/dL (70-99) H 11/12/17 23:32 Phosphorus 6.6 mg/dL (2.7-4.5) H 11/13/17 02:43 Troponin I 0.06 ng/mL (< 0.04) H* 11/12/17 03:10 B-Natriuretic Peptide 969 pg/mL (Less than 100) H 11/11/17 20:26 Human Metapneumovir PCR DETECTED (Not Detect) A 11/12/17 07:20 - Microbiology Findings Microbiology Findings: Microbiology, Last 48 Hours 11/12/17 10:30 Sputum Culture - Preliminary Sputum - Clinical Findings Intake & Output: Intake & Output 11/12/17 11/13/17 11/13/17 23:59 07:59 15:59 Intake Total 200 / 200 100 / 100 Output Total 100 / 100 0 / 0 Balance 100 / 100 100 / 100 Weight 63 kg
[2017-11-13] MEDS ORDERED: 0.9 % Sodium Chloride 250 ML IVC PRN (08:17)
--- NOTE | 2017-11-13 08:17 | Nephrology Progress Note ---
Date of Encounter: 11/13/17 Time of Encounter: 08:15 - Assessment and Plan (1) End stage renal disease Current Visit: No Status: Chronic Patient will undergo dialysis today. Orders have been submitted. He is hemodynamically stable. Hemoglobin is 8.6. Aranesp will be initiated. (2) Acute respiratory failure Current Visit: No Status: Acute Qualifiers: Respiratory failure complication: unspecified whether with hypoxia or hypercapnia Qualified Code(s): J96.00 - Acute respiratory failure, unspecified whether with hypoxia or hypercapnia (3) Anemia, chronic renal failure Current Visit: No Status: Acute Qualifiers: Chronic kidney disease stage: stage 5 Qualified Code(s): N18.5 - Chronic kidney disease, stage 5; D63.1 - Anemia in chronic kidney disease (4) Acute exacerbation of chronic obstructive airways disease Current Visit: No Status: Acute Subjective Principal diagnosis: Acute on chronic respiratory failure with hypoxia Interval history: Patient remains sedated on the ventilator. She appears to be hemodynamically stable. She is requiring 40% inspired oxygen. She is scheduled for her usual dialysis today. Objective - Vital Signs Vital signs: Vital Signs Temp Pulse Resp BP Pulse Ox 11/13/17 06:23 13 132/70 93 11/13/17 06:00 99 18 132/70 93 11/13/17 05:13 99.6 F 11/13/17 05:00 99.6 F 11/13/17 04:00 96 18 131/70 93 11/13/17 03:33 18 128/67 93 11/13/17 03:00 100 18 128/67 95 11/13/17 02:00 97 18 130/67 95 11/13/17 01:23 18 136/67 95 11/13/17 01:00 92 18 137/70 95 11/13/17 00:00 97.9 F 93 18 120/66 95 11/12/17 23:35 18 137/64 95 11/12/17 23:00 93 18 137/64 95 11/12/17 22:10 100 11/12/17 22:00 99 18 126/72 94 11/12/17 21:30 18 127/64 94 11/12/17 21:00 103 24 127/64 94 11/12/17 20:18 98.2 F 11/12/17 20:00 105 20 128/81 95 11/12/17 19:52 18 127/63 95 11/12/17 19:00 97 18 131/63 95 11/12/17 18:00 101 18 117/62 94 11/12/17 17:16 18 93 11/12/17 17:00 114 18 115/59 94 11/12/17 16:00 128 24 135/97 97 11/12/17 15:55 98.6 F 11/12/17 15:54 18 93 11/12/17 15:00 97 18 124/62 93 11/12/17 14:00 92 18 125/64 93 11/12/17 13:17 18 122/63 93 11/12/17 13:00 89 18 122/63 92 11/12/17 12:00 92 17 121/62 93 11/12/17 11:49 121/62 93 11/12/17 11:00 99.4 F 85 18 121/62 93 11/12/17 10:00 85 18 125/63 92 11/12/17 09:33 18 93 11/12/17 09:00 84 17 134/64 92 11/12/17 08:16 16 151/72 96 Intake and Output 11/12/17 11/13/17 11/13/17 23:59 07:59 15:59 Intake Total 200 / 200 100 / 100 Output Total 100 / 100 0 / 0 Balance 100 / 100 100 / 100 Intake: IV Fluids 200 / 200 100 / 100 FentaNYL (PF) 1,000 MCG In 0.9 100 / 100 100 / 100 % Sodium Chloride 80 ML @ 50 MCG/HR 5 mls/hr IVC CONT [facility] Rx #:[id number] Zosyn 3.375 GM In 0.9 % Sodium 100 / 100 Chloride (Mini-Bag +) 100 ML @ 25 mls/hr IVPB Q12HR [facility] Rx#: [id number] Oral 0 / 0 Output: Catheter 100 / 100 0 / 0 Other: Weight 63 kg Blood Glucose* 122 125 Patient Weight 11/13/17 23:59 Weight 63 kg - General Appearance Exam: Patient sedated on the ventilator. She appears to be in no acute distress. Lungs coarse breath sounds otherwise clear. Heart regular rate and rhythm. Abdomen is benign. There is no lower extremity swelling. There is a functioning AV fistula in the left upper extremity. - Lab 11/13/17 02:43 11/13/17 02:43 Most recent lab results ABG pH 7.32 pH Units (7.32-7.45) 11/13/17 05:12 ABG pCO2 55 mmHg (35-45) H 11/13/17 05:12 ABG pO2 70 mmHg (85-104) L 11/13/17 05:12 ABG HCO3 28 mEq/L (21-27) H 11/13/17 05:12 ABG O2 Saturation 92 % (95-98) L 11/13/17 05:12 Calcium 9.8 mg/dL (8.6-10.3) 11/13/17 02:43 Phosphorus 6.6 mg/dL (2.7-4.5) H 11/13/17 02:43 Magnesium 2.1 mg/dL (1.6-2.6) 11/13/17 02:43 Consult Discharge Plan - Plan Referrals: Yonatan Aleman DO [Primary Care Provider] -
[2017-11-13] MEDS: Budesonide/Formoterol 80/4.5 MDI IH SCH ×2 (08:24→22:00)
[2017-11-13] MEDS ORDERED: Aminoglycoside Consult 1 EACH MC ONE (08:30)
[2017-11-13 08:52] LABS: Hepatitis B Surface Antigen Nonreactive (Nonreactive)
[2017-11-13 08:55] LABS: Hepatitis B Surface Antibody 11.11 mIU/mL
[2017-11-13] MEDS: Darbepoetin 100 MCG/0.5 ML SYRINGE SQ SCH (09:34)
[2017-11-13] MEDS: MethylPREDNISolone 40 MG/ML VIAL IVP SCH ×2 (09:34→15:53)
[2017-11-13] MEDS: 0.9 % Sodium Chloride 500 ML IVC SCH (09:37)
[2017-11-13] MEDS: NIFEdipine XL (24 HR) 30 MG TAB.ER.24 PO SCH (09:38)
[2017-11-13] MEDS: Chlorhexidine Rinse 15 ML MOUTHWASH MM SCH (09:38)
[2017-11-13] MEDS: Aspirin 81 MG TAB.CHEW PO SCH (09:38)
[2017-11-13] MEDS: Nicotine 14 MG PATCH.TD24 TD SCH (18:47)
[2017-11-14] MEDS: MethylPREDNISolone 40 MG/ML VIAL IVP SCH ×3 (00:09→16:14)
[2017-11-14] MEDS: Ipratropium/Albuterol Neb 3 ML IH SCH ×7 (00:42→23:25)
[2017-11-14 04:27] LABS: Basophils % 0.2 %; Hematocrit 28.4 % (35.3-44.9); Hemoglobin 8.8 g/dL (11.5-15.4); Immature Granulocytes % 2.4 % (0-4); Lymphocytes # 0.3 K/mcL (0.6-4.6); Lymphocytes % 2.2 %; Mean Corpuscular Hemoglobin 30.2 pg (28.0-33.3); Mean Corpuscular Volume 97.6 fL (83.0-100.0); Mean Platelet Volume 9.5 fL (9.4-12.4); Monocytes # 0.3 K/mcL (0.0-1.3); Monocytes % 2.2 %; Neutrophils # 10.9 K/mcL (1.6-8.9); Platelet Count 126 K/mcL (140-400); Red Blood Count 2.91 M/mcL (3.82-4.97); Red Cell Distribution Width 14.2 % (11.5-14.5)
[2017-11-14 04:47] LABS: Calcium 9.8 mg/dL (8.6-10.3); Phosphorous 5.1 mg/dL (2.7-4.5); Potassium 3.9 mEq/L (3.5-5.1)
[2017-11-14] MEDS: Piperacillin/Tazobactam 3.375 GM in 0.9 % Sodium Chloride Mini Bag 100 ML IVPB SCH ×2 (05:45→17:37)
[2017-11-14] MEDS: Pantoprazole 40 MG VIAL IVP SCH (05:45)
[2017-11-14] MEDS: *HR* Heparin 5,000 UNIT/ML VIAL SQ SCH ×2 (05:55→17:36)
[2017-11-14] MEDS: Budesonide/Formoterol 80/4.5 MDI IH SCH ×2 (08:03→19:36)
--- NOTE | 2017-11-14 08:10 | Nephrology Progress Note ---
Date of Encounter: 11/14/17 Time of Encounter: 08:09 - Assessment and Plan (1) End stage renal disease Current Visit: No Status: Chronic The patient will continue to be supported with dialysis every Monday. She is improved from a pulmonary standpoint. (2) Acute respiratory failure Current Visit: No Status: Acute Qualifiers: Respiratory failure complication: unspecified whether with hypoxia or hypercapnia Qualified Code(s): J96.00 - Acute respiratory failure, unspecified whether with hypoxia or hypercapnia (3) Anemia, chronic renal failure Current Visit: No Status: Acute Qualifiers: Chronic kidney disease stage: stage 5 Qualified Code(s): N18.5 - Chronic kidney disease, stage 5; D63.1 - Anemia in chronic kidney disease (4) Acute exacerbation of chronic obstructive airways disease Current Visit: No Status: Acute Subjective Principal diagnosis: Acute on chronic respiratory failure with hypoxia Interval history: The patient is extubated. She denies any shortness of breath currently. She did undergo dialysis yesterday. Vital signs appear stable. Objective - Vital Signs Vital signs: Vital Signs Temp Pulse Resp BP Pulse Ox 11/14/17 08:02 16 95 11/14/17 07:00 86 20 147/62 95 11/14/17 06:00 87 22 153/79 96 11/14/17 05:00 89 18 163/77 96 11/14/17 04:30 16 96 11/14/17 04:00 89 20 153/83 95 11/14/17 03:00 98.5 F 92 20 153/86 94 11/14/17 02:00 86 24 164/84 92 11/14/17 01:00 91 28 158/87 93 11/14/17 00:43 14 153/71 96 11/14/17 00:00 87 14 153/71 96 11/13/17 23:30 98.2 F 87 16 152/67 96 11/13/17 22:00 95 18 145/68 95 11/13/17 21:00 98 26 163/81 93 11/13/17 20:35 16 97 11/13/17 20:00 106 22 167/83 92 11/13/17 19:00 98.8 F 101 18 148/85 93 11/13/17 18:15 97.8 F 20 157/77 11/13/17 18:00 99 20 139/75 94 11/13/17 17:45 149/81 11/13/17 17:30 141/78 11/13/17 17:15 140/75 11/13/17 17:00 92 18 141/78 95 11/13/17 16:45 138/81 11/13/17 16:37 20 95 11/13/17 16:30 146/79 11/13/17 16:15 142/81 11/13/17 16:00 97.7 F 103 18 135/74 97 11/13/17 15:45 152/80 11/13/17 15:30 156/84 11/13/17 15:15 142/77 11/13/17 15:00 97.7 F 103 18 140/80 95 11/13/17 14:00 105 19 151/80 93 11/13/17 13:00 101 15 145/78 96 11/13/17 12:00 101 15 142/69 92 11/13/17 11:00 101 12 137/79 94 11/13/17 10:00 116 16 125/61 98 11/13/17 09:00 111 13 137/73 92 11/13/17 08:31 13 11/13/17 08:23 14 136/71 94 Intake and Output 11/13/17 11/14/17 11/14/17 23:59 07:59 15:59 Intake Total 180 / 180 100 / 100 Output Total 2800 / 2800 100 / 100 Balance -2620 / -2620 0 / 0 Intake: IV Fluids 100 / 100 Zosyn 3.375 GM In 0.9 % Sodium 100 / 100 Chloride (Mini-Bag +) 100 ML @ 25 mls/hr IVPB Q12HR [facility] Rx#: [id number] Oral 180 / 180 0 / 0 Output: Total Dialysis (HD) Output 2600 / 2600 Catheter 200 / 200 100 / 100 Other: Meal Dinner Percent of Meal Consumed 60% Weight 61.1 kg Blood Glucose* 105 98 Hemodialysis Net Fluid Removed 2000 (mL) - General Appearance Exam: Patient is alert and oriented. She is in no acute distress. Lungs symmetric breath sounds otherwise clear. Heart regular rate and rhythm with ectopic beats. Abdomen is benign. There is no lower extremity swelling. There is a functioning AV fistula in the left upper extremity. - Lab 11/14/17 04:02 11/14/17 04:02 Most recent lab results ABG pH 7.32 pH Units (7.32-7.45) 11/13/17 05:12 ABG pCO2 55 mmHg (35-45) H 11/13/17 05:12 ABG pO2 70 mmHg (85-104) L 11/13/17 05:12 ABG HCO3 28 mEq/L (21-27) H 11/13/17 05:12 ABG O2 Saturation 92 % (95-98) L 11/13/17 05:12 Calcium 9.8 mg/dL (8.6-10.3) 11/14/17 04:02 Phosphorus 5.1 mg/dL (2.7-4.5) H 11/14/17 04:02 Magnesium 2.0 mg/dL (1.6-2.6) 11/14/17 04:02 Consult Discharge Plan - Plan Referrals: Yonatan Aleman DO [Primary Care Provider] -
[2017-11-14] MEDS: NIFEdipine XL (24 HR) 30 MG TAB.ER.24 PO SCH (08:56)
[2017-11-14] MEDS: Aspirin 81 MG TAB.CHEW PO SCH (08:56)
[2017-11-14] MEDS: Nicotine 14 MG PATCH.TD24 TD SCH (08:57)
--- NOTE | 2017-11-14 09:06 | Pulmonology Progress Note ---
<Aubrey Liriano M - Last Filed: 11/14/17 09:43> Date of Encounter: 11/14/17 Objective PUL Vital signs: Last Vital Signs Temp 98.2 F 11/14/17 08:17 Pulse 90 11/14/17 08:00 Resp 16 11/14/17 08:02 BP 151/78 11/14/17 08:00 Pulse Ox 95 11/14/17 08:02 Results - Laboratory Findings CBC and BMP: 11/14/17 04:02 11/14/17 04:02 ABG ABG pH 7.32 pH Units (7.32-7.45) 11/13/17 05:12 ABG pCO2 55 mmHg (35-45) H 11/13/17 05:12 ABG pO2 70 mmHg (85-104) L 11/13/17 05:12 ABG O2 Saturation 92 % (95-98) L 11/13/17 05:12 PT/INR, D-dimer D-Dimer 2242 ng/mLFEU (0-500) H 11/11/17 20:37 Abnormal lab findings: Abnormal lab results WBC 11.7 K/mcL (4.3-11.1) H D 11/14/17 04:02 RBC 2.91 M/mcL (3.82-4.97) L 11/14/17 04:02 Hgb 8.8 g/dL (11.5-15.4) L 11/14/17 04:02 Hct 28.4 % (35.3-44.9) L 11/14/17 04:02 MCHC 31.0 g/dL (31.6-35.5) L 11/14/17 04:02 Plt Count 126 K/mcL (140-400) L 11/14/17 04:02 Band Neutrophils % 6.0 % (0-4) H 11/11/17 20:26 Neutrophils # 10.9 K/mcL (1.6-8.9) H 11/14/17 04:02 Lymphocytes # 0.3 K/mcL (0.6-4.6) L 11/14/17 04:02 Toxic Granulation Present (Not Present) A 11/11/17 20:26 Platelet Estimate Decreased (Normal) L 11/13/17 02:43 D-Dimer 2242 ng/mLFEU (0-500) H 11/11/17 20:37 ABG pCO2 55 mmHg (35-45) H 11/13/17 05:12 ABG pO2 70 mmHg (85-104) L 11/13/17 05:12 ABG HCO3 28 mEq/L (21-27) H 11/13/17 05:12 ABG Total CO2 30 mEq/L (20-26) H 11/13/17 05:12 ABG O2 Saturation 92 % (95-98) L 11/13/17 05:12 Sodium 134 mEq/L (136-145) L 11/14/17 04:02 Chloride 94 mEq/L (98-107) L 11/14/17 04:02 Carbon Dioxide 30 mEq/L (23-29) H 11/14/17 04:02 BUN 29 mg/dL (8-23) H 11/14/17 04:02 Creatinine 3.58 mg/dL (0.60-1.20) H 11/14/17 04:02 Est GFR ( Amer) 15 (> 60) L 11/14/17 04:02 Est GFR (Non-Af Amer) 13 (> 60) L 11/14/17 04:02 Glucose 110 mg/dL (70-105) H 11/14/17 04:02 Phosphorus 5.1 mg/dL (2.7-4.5) H 11/14/17 04:02 Troponin I 0.06 ng/mL (< 0.04) H* 11/12/17 03:10 B-Natriuretic Peptide 969 pg/mL (Less than 100) H 11/11/17 20:26 Human Metapneumovir PCR DETECTED (Not Detect) A 11/12/17 07:20 - Microbiology Findings Microbiology Findings: Microbiology, Last 48 Hours 11/12/17 10:30 Sputum Culture - Preliminary Sputum - Clinical Findings Intake & Output: Intake & Output 11/13/17 11/14/17 11/14/17 23:59 07:59 15:59 Intake Total 180 / 180 100 / 100 Output Total 2800 / 2800 100 / 100 50 / 50 Balance -2620 / -2620 0 / 0 -50 / -50 Weight 61.1 kg Consult Discharge Plan - Plan Referrals: Yonatan Aleman DO [Primary Care Provider] - - Attending Attestation I examined this patient and my medical decision-making was reviewed with the Resident Physician. I agree with the documented findings, disposition and treatment plan as described except to the extent set forth below. Patient seen and examined. Labs, radiology, chart personally reviewed. 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 Continue bronchodilators with taper over steroid. Patient stable to be transferred to Cardiovascular: stable GI: Nutrition per dietary and GI prophylaxis per routine Heme: DVT prophylaxis per routine ID: Continue antibiotics and plan to de-escalation Renal; transferred to 2A Endorcine: blood glucose is monitored Lines: all lines checked and no evidence of infections Skin: skin care to prevent pressure ulcers per nursing routine care <Oliverio Whittaker - Last Filed: 11/14/17 13:50> Date of Encounter: 11/14/17 Time of Encounter: 09:04 Assessment and Plan (1) Acute on chronic respiratory failure with hypoxia Current Visit: Yes Status: Acute -Acute respiratory failure with hypoxia initially requiring BiPAP with subsequent escalation to intubation. -Multifactorial secondary to underlying COPD, concern for aspiration PNA -Currently requiring minimal ventilatory support. -Sputum CX demonstrates many WBCs as well as moderate GPC, a few GNRs and a few GPRs -Vancomycin and Zosyn for empiric coverage (2) ESRD (end stage renal disease) on dialysis Current Visit: Yes Status: Chronic -End-stage renal disease requiring HD -Nephrology consulted -Start Aranesp due to anemia -Continued to trend daily renal function -Strict I/Os -[facility] for volume status monitoring -[facility] -MWF HD (3) Elevated troponin Current Visit: Yes Status: Acute -Adynamic elevation in the setting of ESRD -Likely 2/2 acute hypoxic event (4) Anemia Current Visit: Yes Status: Chronic -Underlying ESRD with chronic anemia -Nephrology consulted: Plan to initiate Aranesp -No signs of bleeding -Daily CBCs Qualifiers: Anemia type: due to chronic kidney disease Chronic kidney disease stage: on chronic dialysis Qualified Code(s): N18.6 - End stage renal disease; D63.1 - Anemia in chronic kidney disease; D63.1 - Anemia in chronic kidney disease; Z99.2 - Dependence on renal dialysis; Z99.2 - Dependence on renal dialysis; Z99.2 - Dependence on renal dialysis; Z99.2 - Dependence on renal dialysis (5) Acute exacerbation of chronic obstructive airways disease Current Visit: No Status: Acute -Underlying history of COPD -Continue home albuterol and Symbicort regimen -Continue IV Solu-Medrol 40 mg Q8H (6) CAD (coronary artery disease) Current Visit: No Status: Chronic -ASA 81 mg daily Qualifiers: Coronary Disease-Associated Artery/Lesion type: bypass graft [place] vs. transplanted heart: [place] heart Associated angina: with unspecified angina Qualified Code(s): I25.709 - Atherosclerosis of coronary artery bypass graft(s) , unspecified, with unspecified angina pectoris (7) Hypertension Current Visit: No Status: Chronic -Normotensive -Continue home Procardia -Resume metoprolol Qualifiers: Hypertension type: essential hypertension Qualified Code(s): I10 - Essential (primary) hypertension (8) Hypothyroidism Current Visit: No Status: Chronic -Continue Synthroid 200 g Qualifiers: Hypothyroidism type: acquired Qualified Code(s): E03.9 - Hypothyroidism, unspecified (9) DVT prophylaxis Current Visit: No Status: Acute -Heparin 5000 units SQ Q12H Subjective Principal diagnosis: Acute on chronic respiratory failure with hypoxia Interval history: Patient seen and examined this morning. Objective PUL Vital signs: Last Vital Signs Temp 98.2 F 11/14/17 08:17 Pulse 90 11/14/17 08:00 Resp 16 11/14/17 08:02 BP 151/78 11/14/17 08:00 Pulse Ox 95 11/14/17 08:02 General appearance: no acute distress Eyes: nonicteric ENT: oropharynx moist Neck: supple Effort: normal Auscultation: bilateral: clear Percussion: bilateral: not dull Tactile fremitus: bilateral: normal Cardiovascular: regular rate and rhythm Gastrointestinal: normoactive bowel sounds, non-distended Integumentary: normal Extremities: no cyanosis, no edema, no clubbing Musculoskeletal: no deformities, ROM normal normal mental status, non-focal exam mood appropriate, affect normal Results - Laboratory Findings CBC and BMP: 11/14/17 04:02 11/14/17 04:02 ABG ABG pH 7.32 pH Units (7.32-7.45) 11/13/17 05:12 ABG pCO2 55 mmHg (35-45) H 11/13/17 05:12 ABG pO2 70 mmHg (85-104) L 11/13/17 05:12 ABG O2 Saturation 92 % (95-98) L 11/13/17 05:12 PT/INR, D-dimer D-Dimer 2242 ng/mLFEU (0-500) H 11/11/17 20:37 Abnormal lab findings: Abnormal lab results WBC 11.7 K/mcL (4.3-11.1) H D 11/14/17 04:02 RBC 2.91 M/mcL (3.82-4.97) L 11/14/17 04:02 Hgb 8.8 g/dL (11.5-15.4) L 11/14/17 04:02 Hct 28.4 % (35.3-44.9) L 11/14/17 04:02 MCHC 31.0 g/dL (31.6-35.5) L 11/14/17 04:02 Plt Count 126 K/mcL (140-400) L 11/14/17 04:02 Band Neutrophils % 6.0 % (0-4) H 11/11/17 20:26 Neutrophils # 10.9 K/mcL (1.6-8.9) H 11/14/17 04:02 Lymphocytes # 0.3 K/mcL (0.6-4.6) L 11/14/17 04:02 Toxic Granulation Present (Not Present) A 11/11/17 20:26 Platelet Estimate Decreased (Normal) L 11/13/17 02:43 D-Dimer 2242 ng/mLFEU (0-500) H 11/11/17 20:37 ABG pCO2 55 mmHg (35-45) H 11/13/17 05:12 ABG pO2 70 mmHg (85-104) L 11/13/17 05:12 ABG HCO3 28 mEq/L (21-27) H 11/13/17 05:12 ABG Total CO2 30 mEq/L (20-26) H 11/13/17 05:12 ABG O2 Saturation 92 % (95-98) L 11/13/17 05:12 Sodium 134 mEq/L (136-145) L 11/14/17 04:02 Chloride 94 mEq/L (98-107) L 11/14/17 04:02 Carbon Dioxide 30 mEq/L (23-29) H 11/14/17 04:02 BUN 29 mg/dL (8-23) H 11/14/17 04:02 Creatinine 3.58 mg/dL (0.60-1.20) H 11/14/17 04:02 Est GFR ( Amer) 15 (> 60) L 11/14/17 04:02 Est GFR (Non-Af Amer) 13 (> 60) L 11/14/17 04:02 Glucose 110 mg/dL (70-105) H 11/14/17 04:02 Phosphorus 5.1 mg/dL (2.7-4.5) H 11/14/17 04:02 Troponin I 0.06 ng/mL (< 0.04) H* 11/12/17 03:10 B-Natriuretic Peptide 969 pg/mL (Less than 100) H 11/11/17 20:26 Human Metapneumovir PCR DETECTED (Not Detect) A 11/12/17 07:20 - Microbiology Findings Microbiology Findings: Microbiology, Last 48 Hours 11/12/17 10:30 Sputum Culture - Preliminary Sputum - Clinical Findings Intake & Output: Intake & Output 11/13/17 11/14/17 11/14/17 23:59 07:59 15:59 Intake Total 180 / 180 100 / 100 Output Total 2800 / 2800 100 / 100 50 / 50 Balance -2620 / -2620 0 / 0 -50 / -50 Weight 61.1 kg
[2017-11-14] MEDS: traMADol 50 MG TABLET PO PRN (11:45)
[2017-11-14] MEDS: Acetaminophen 325 MG TABLET PO PRN (21:02)
[2017-11-14] MEDS: Lacri-Lube 3.5 GM TUBE BOTH EYES SCH (23:24)
[2017-11-14] MEDS: Dexmedetomidine HCl 400 MCG/100 ML MLS IVC SCH (23:24)
[2017-11-15] MEDS: MethylPREDNISolone 40 MG/ML VIAL IVP SCH ×4 (00:10→23:50)
[2017-11-15] MEDS: traMADol 50 MG TABLET PO PRN ×2 (00:10→13:04)
--- NOTE | 2017-11-15 00:28 | Electrocardiograph Report ---
[place] [id number] Test Date: 2017-11-11 Pat Name: Rita Orellana Department: 102 Room: 2A42 Gender: F Filleter: Oz : 1950 Requested By: Mahin Waldrop Order Number: [id number] Reading MD: Peg Colin Measurements Intervals [place] Rate: 98 P: 74 SD: 150 QRS: 78 QRSD: 110 T: 17 QT: 360 QTc: 415 Interpretive Statements SINUS RHYTHM POSSIBLE LEFT ATRIAL ENLARGEMENT [-0.1mV P WAVE IN V1/V2] MINIMAL ST DEPRESSION [0.025+ mV ST DEPRESSION] Electronically Signed On 11-15-2017 0:26:54 EDT by Peg Colin
[2017-11-15] MEDS: Ipratropium/Albuterol Neb 3 ML IH SCH ×6 (03:41→23:42)
[2017-11-15] MEDS: *HR* Heparin 5,000 UNIT/ML VIAL SQ SCH ×2 (06:05→17:52)
[2017-11-15] MEDS: Pantoprazole 40 MG VIAL IVP SCH (06:06)
[2017-11-15 06:12] LABS: Hematocrit 29.3 % (35.3-44.9); Hemoglobin 9.3 g/dL (11.5-15.4); Mean Corpuscular HGB Conc 31.7 g/dL (31.6-35.5); Mean Corpuscular Hemoglobin 30.8 pg (28.0-33.3); Mean Platelet Volume 9.4 fL (9.4-12.4); Nucleated Red Blood Cells 0.2 /100 WBC (0); Platelet Count 124 K/mcL (140-400); Red Blood Count 3.02 M/mcL (3.82-4.97); Red Cell Distribution Width 13.9 % (11.5-14.5)
[2017-11-15 07:25] LABS: Calcium 9.6 mg/dL (8.6-10.3); Magnesium 2.1 mg/dL (1.6-2.6); Phosphorous 6.8 mg/dL (2.7-4.5); Potassium 4.5 mEq/L (3.5-5.1)
[2017-11-15] MEDS: Budesonide/Formoterol 80/4.5 MDI IH SCH ×2 (07:28→19:56)
[2017-11-15] MEDS: Piperacillin/Tazobactam 3.375 GM in 0.9 % Sodium Chloride Mini Bag 100 ML IVPB SCH ×2 (07:53→17:47)
[2017-11-15] MEDS ORDERED: 0.9 % Sodium Chloride 250 ML IVC PRN (08:04)
--- NOTE | 2017-11-15 08:04 | Nephrology Progress Note ---
Date of Encounter: 11/15/17 Time of Encounter: 08:02 - Assessment and Plan (1) End stage renal disease Current Visit: No Status: Chronic Patient is improved from the standpoint of her acute respiratory failure and COPD exacerbation. She will undergo her usual dialysis today. (2) Acute respiratory failure Current Visit: No Status: Acute Qualifiers: Respiratory failure complication: unspecified whether with hypoxia or hypercapnia Qualified Code(s): J96.00 - Acute respiratory failure, unspecified whether with hypoxia or hypercapnia (3) Anemia, chronic renal failure Current Visit: No Status: Acute Qualifiers: Chronic kidney disease stage: stage 5 Qualified Code(s): N18.5 - Chronic kidney disease, stage 5; D63.1 - Anemia in chronic kidney disease (4) Acute exacerbation of chronic obstructive airways disease Current Visit: No Status: Acute Subjective Principal diagnosis: Acute on chronic respiratory failure with hypoxia Interval history: The patient has been transferred out of the intensive care unit. She says her breathing has improved. She continues to experience some coughing and sputum production. She scheduled for her usual dialysis today. Objective - Vital Signs Vital signs: Vital Signs Temp Pulse Resp BP Pulse Ox 11/15/17 06:46 98.1 F 82 17 149/69 98 11/15/17 04:47 98.1 F 80 16 147/72 96 11/15/17 03:41 15 97 11/14/17 23:56 98.5 F 88 16 117/65 95 11/14/17 23:26 16 95 11/14/17 19:37 98.2 F 85 16 129/61 96 11/14/17 16:00 98.7 F 87 14 105/76 99 11/14/17 15:00 78 11/14/17 14:00 92 20 110/51 97 11/14/17 12:04 98.4 F 11/14/17 12:00 80 20 104/55 96 11/14/17 11:33 18 93 11/14/17 11:00 80 11/14/17 10:00 81 20 121/66 94 11/14/17 08:17 98.2 F Intake and Output 11/14/17 11/15/17 11/15/17 23:59 07:59 15:59 Intake Total 100 / 100 0 / 0 Output Total 0 / 0 250 / 250 Balance 100 / 100 -250 / -250 Intake: IV Fluids 100 / 100 Zosyn 3.375 GM In 0.9 % Sodium 100 / 100 Chloride (Mini-Bag +) 100 ML @ 25 mls/hr IVPB Q12HR [facility] Rx#: [id number] Oral 0 / 0 0 / 0 Output: Catheter 0 / 0 250 / 250 Other: Weight 61.1 kg Patient Weight 11/15/17 23:59 Weight 61.1 kg - General Appearance Exam: Patient is alert and oriented. She is in no acute distress. Lungs diminished breath sounds with occasional rhonchi. Heart regular rate and rhythm. Abdomen is benign. There is no lower extremity swelling. An AV fistula is in place. - Lab 11/15/17 05:43 11/15/17 05:43 Most recent lab results ABG pH 7.32 pH Units (7.32-7.45) 11/13/17 05:12 ABG pCO2 55 mmHg (35-45) H 11/13/17 05:12 ABG pO2 70 mmHg (85-104) L 11/13/17 05:12 ABG HCO3 28 mEq/L (21-27) H 11/13/17 05:12 ABG O2 Saturation 92 % (95-98) L 11/13/17 05:12 Calcium 9.6 mg/dL (8.6-10.3) 11/15/17 05:43 Phosphorus 6.8 mg/dL (2.7-4.5) H 11/15/17 05:43 Magnesium 2.1 mg/dL (1.6-2.6) 11/15/17 05:43 Consult Discharge Plan - Plan Referrals: Yonatan Aleman DO [Primary Care Provider] -
[2017-11-15 10:00] LABS: Monocytes # 0.4 K/mcL (0.0-1.3); Neutrophils # 8.4 K/mcL (1.6-8.9)
[2017-11-15 10:01] LABS: Platelet Estimate Normal (Normal); Polychromasia 1+ (Not Present)
[2017-11-15] MEDS: NIFEdipine XL (24 HR) 30 MG TAB.ER.24 PO SCH (10:34)
[2017-11-15] MEDS: Aspirin 81 MG TAB.CHEW PO SCH (10:34)
[2017-11-15] MEDS: Nicotine 14 MG PATCH.TD24 TD SCH (10:35)
--- NOTE | 2017-11-15 15:44 | Internal Med Progress Note ---
Date of Encounter: 11/15/17 Time of Encounter: 15:10 - Assessment and plan (1) Acute on chronic respiratory failure with hypoxia Current Visit: Yes Status: Acute Assessment and plan: secondary to acute COPD exacerbation complicated by bacterial and human metapneumovirus pna s/p extubation on 11/13/17 clinically improving continue systemic steroids (Solumedrol 40mg IV q8h), bronchodilator suport O2 supplementation monitor O2 sat, goal O2 sat: 88-92% bipap support as needed continue IV Zosyn (Day 5 of abx, will treat for a total of ten days). Vancomycin discontinued continue ICS will closely monitor respiratory status (2) HCAP (healthcare-associated pneumonia) Current Visit: No Status: Acute Assessment and plan: plan as listed above (3) COPD exacerbation Current Visit: Yes Status: Acute Assessment and plan: as listed above (4) Anemia Current Visit: Yes Status: Chronic Assessment and plan: patient receiving Aranesp as per nephrology H&H low but acceptable no acute bleeding reported at this time will continue to closely monitor Qualifiers: Anemia type: due to chronic kidney disease Chronic kidney disease stage: on chronic dialysis Qualified Code(s): N18.6 - End stage renal disease; D63.1 - Anemia in chronic kidney disease; D63.1 - Anemia in chronic kidney disease; Z99.2 - Dependence on renal dialysis; Z99.2 - Dependence on renal dialysis; Z99.2 - Dependence on renal dialysis; Z99.2 - Dependence on renal dialysis (5) CAD (coronary artery disease) Current Visit: No Status: Chronic Assessment and plan: no signs of angina continue home meds Qualifiers: Qualified Code(s): I25.10 - Atherosclerotic heart disease of [place] coronary artery without angina pectoris (6) ESRD (end stage renal disease) on dialysis Current Visit: Yes Status: Chronic Assessment and plan: nephrology evaluation appreciated continue HD (MWF) (7) Hypertension Current Visit: No Status: Chronic Assessment and plan: BP within acceptable range continue home meds Qualifiers: Hypertension type: essential hypertension Qualified Code(s): I10 - Essential (primary) hypertension (8) Hypothyroidism Current Visit: No Status: Chronic Assessment and plan: continue home dose of levothyroxine Qualifiers: Hypothyroidism type: acquired Qualified Code(s): E03.9 - Hypothyroidism, unspecified (9) DVT prophylaxis Current Visit: Yes Status: Acute Assessment and plan: heparin sQ - Time Spent With Patient Total time spent is greater than 50% in coordination of care (as documented) at patient's floor/unit and/or counseling patient: - Subjective Interval history: Patient is a 67y/o female who was admitted to ICU for acute respiratory failure requiring intubation secondary to COPD exacerbation, PNA, and human metapneumovirus. She was extubated on 11/13/17 and transferred to on 11/14/17. Pt seen and examined in hemodialysis. Currently saturating well on 6L NC. Reports of feeling better compared to previous day. Reports of being on 4L NC at home. Pt denies any discomfort at this time. - Constitutional Vitals: Temp Pulse Resp BP Pulse Ox 98.2 F 80 18 134/64 97 11/15/17 11:09 11/15/17 11:09 11/15/17 11:20 11/15/17 11:09 11/15/17 11:20 General appearance: Present: A&O X 3, pleasant, no acute distress - Head Head exam: Present: atraumatic, normocephalic - Eye Eye exam: Present: conjuntiva pink, sclera anicteric - Respiratory Respiratory exam: Present: decreased breath sounds. Absent: respiratory distress, wheezes - Cardiovascular Cardiovascular exam: Present: RRR, +S1, +S2 - GI/Abdominal GI/Abdominal exam: Present: normal bowel sounds, soft, no peritoneal signs. Absent: distended, tenderness - Extremities Exam Extremities exam: Present: warm, radial pulses palpable and symmetrical. Absent : calf tenderness, tenderness - Neurological Exam Neurological exam: Present: oriented X3 Internal Medicine: Result - Labs CBC & Chem 7: 11/15/17 05:43 11/15/17 05:43 Labs: Short CBC 11/15/17 Range/Units 05:43 WBC 8.7 (4.3-11.1) K/mcL Hgb 9.3 L (11.5-15.4) g/dL Hct 29.3 L (35.3-44.9) % Plt Count 124 L (140-400) K/mcL Neutrophils # 8.4 (1.6-8.9) K/mcL BMP 11/15/17 05:43 Sodium 135 L Potassium 4.5 Chloride 94 L Carbon Dioxide 27 BUN 52 H Creatinine 5.38 H Glucose 123 H Calcium 9.6 - ABG Interpretation ABG results: ABG ABG pH 7.32 pH Units (7.32-7.45) 11/13/17 05:12 ABG pCO2 55 mmHg (35-45) H 11/13/17 05:12 ABG pO2 70 mmHg (85-104) L 11/13/17 05:12 ABG O2 Saturation 92 % (95-98) L 11/13/17 05:12 PT/INR, D-dimer D-Dimer 2242 ng/mLFEU (0-500) H 11/11/17 20:37 Consult Discharge Plan - Plan Referrals: Yonatan Aleman DO [Primary Care Provider] - (web request sent on 11/15/17)
[2017-11-15] MEDS ORDERED: 0.9 % Sodium Chloride 2,000 ML ONE (16:20)
[2017-11-15] MEDS: Acetaminophen 325 MG TABLET PO PRN (17:46)
[2017-11-15] MEDS: Ondansetron 4 MG/2 ML VIAL IVP PRN (20:39)
[2017-11-15] MEDS: *HR* Promethazine 25 MG/ML VIAL IVP PRN (23:50)
[2017-11-16] MEDS: Pantoprazole 40 MG VIAL IVP SCH ×2 (01:51→13:41)
[2017-11-16] MEDS: *HR* LORazepam 2 MG/ML VIAL IVP PRN (01:51)
[2017-11-16] MEDS: Ipratropium/Albuterol Neb 3 ML IH SCH ×5 (03:38→20:15)
[2017-11-16 04:25] LABS: Hematocrit 31.9 % (35.3-44.9); Hemoglobin 10.3 g/dL (11.5-15.4); Mean Corpuscular HGB Conc 32.3 g/dL (31.6-35.5); Mean Corpuscular Hemoglobin 31.2 pg (28.0-33.3); Mean Corpuscular Volume 96.7 fL (83.0-100.0); Mean Platelet Volume 9.7 fL (9.4-12.4); Nucleated Red Blood Cells 0.5 /100 WBC (0); Platelet Count 153 K/mcL (140-400); Red Cell Distribution Width 13.9 % (11.5-14.5)
[2017-11-16 04:49] LABS: Calcium 9.6 mg/dL (8.6-10.3); Magnesium 1.9 mg/dL (1.6-2.6); Phosphorous 4.3 mg/dL (2.7-4.5); Potassium 3.9 mEq/L (3.5-5.1)
[2017-11-16 04:54] LABS: Lymphocytes # 1.3 K/mcL (0.6-4.6); Monocytes # 0.8 K/mcL (0.0-1.3); Platelet Estimate Normal (Normal)
[2017-11-16] MEDS ORDERED: *HR* Labetalol 20 MG/4 ML SYRINGE IVP PRN (05:34)
[2017-11-16] MEDS ORDERED: *HR* Labetalol 20 MG/4 ML SYRINGE IVP ONE ×2 (05:34→11:33)
[2017-11-16] MEDS: *HR* Heparin 5,000 UNIT/ML VIAL SQ SCH (05:59)
[2017-11-16] MEDS: Piperacillin/Tazobactam 3.375 GM in 0.9 % Sodium Chloride Mini Bag 100 ML IVPB SCH ×2 (06:01→17:55)
[2017-11-16] MEDS: Ondansetron 4 MG/2 ML VIAL IVP PRN ×2 (06:09→18:07)
[2017-11-16] MEDS: Budesonide/Formoterol 80/4.5 MDI IH SCH ×2 (07:20→20:16)
--- NOTE | 2017-11-16 08:07 | Nephrology Progress Note ---
Date of Encounter: 11/16/17 Time of Encounter: 08:05 - Assessment and Plan (1) End stage renal disease Current Visit: No Status: Chronic The patient will continue to be supported with dialysis every Monday. I am going to make some adjustments to her antihypertensive regimen. (2) Acute respiratory failure Current Visit: No Status: Acute Qualifiers: Respiratory failure complication: unspecified whether with hypoxia or hypercapnia Qualified Code(s): J96.00 - Acute respiratory failure, unspecified whether with hypoxia or hypercapnia (3) Anemia, chronic renal failure Current Visit: No Status: Acute Qualifiers: Chronic kidney disease stage: stage 5 Qualified Code(s): N18.5 - Chronic kidney disease, stage 5; D63.1 - Anemia in chronic kidney disease (4) Acute exacerbation of chronic obstructive airways disease Current Visit: No Status: Acute Subjective Principal diagnosis: Acute on chronic respiratory failure with hypoxia Interval history: The patient is complaining of some nausea this morning. She did receive dialysis yesterday. Blood pressure is elevated today. She continues to experience some shortness of breath although her lungs sound pretty good on physical exam. Objective - Vital Signs Vital signs: Vital Signs Temp Pulse Resp BP Pulse Ox 11/16/17 06:45 97.4 F L 108 21 176/93 98 11/16/17 05:41 97.6 F 120 18 204/110 95 11/16/17 00:08 98 F 93 17 165/81 94 11/15/17 21:16 97.6 F 90 18 179/89 95 11/15/17 16:30 98.1 F 18 116/58 11/15/17 16:10 113/67 11/15/17 15:55 117/69 11/15/17 15:40 119/64 11/15/17 15:25 112/60 11/15/17 15:10 109/58 11/15/17 14:55 115/61 11/15/17 14:40 114/62 11/15/17 14:25 113/60 11/15/17 14:10 100/57 11/15/17 13:55 118/58 11/15/17 13:40 129/59 11/15/17 13:25 109/63 11/15/17 13:10 98.3 F 20 113/62 11/15/17 11:20 18 97 11/15/17 11:09 98.2 F 80 17 134/64 98 Intake and Output 11/15/17 11/16/17 11/16/17 23:59 07:59 15:59 Intake Total 100 / 100 Output Total 2600 / 2600 600 / 600 Balance -2500 / -2500 -600 / -600 Intake: IV Fluids 100 / 100 Zosyn 3.375 GM In 0.9 % Sodium 100 / 100 Chloride (Mini-Bag +) 100 ML @ 25 mls/hr IVPB Q12HR [facility] Rx#: [id number] Oral 0 / 0 Output: Urine 0 / 0 Emesis 350 / 350 Total Dialysis (HD) Output 2600 / 2600 Catheter 250 / 250 Other: Stool Size Large Stool Consistency loose Stool Color Brown # Bowel Movements 1 Blood Glucose* 107 Hemodialysis Net Fluid Removed 2000 (mL) - General Appearance Exam: Patient is alert and oriented. She is in no acute distress. Blood pressure 176 /93. Lungs diminished breath sounds with very few rhonchi and no wheezing. Heart irregular rate and rhythm. Abdomen was benign. There is no peripheral edema. Is a functioning AV fistula in the left upper extremity. - Lab 11/16/17 03:32 11/16/17 03:32 Most recent lab results ABG pH 7.32 pH Units (7.32-7.45) 11/13/17 05:12 ABG pCO2 55 mmHg (35-45) H 11/13/17 05:12 ABG pO2 70 mmHg (85-104) L 11/13/17 05:12 ABG HCO3 28 mEq/L (21-27) H 11/13/17 05:12 ABG O2 Saturation 92 % (95-98) L 11/13/17 05:12 Calcium 9.6 mg/dL (8.6-10.3) 11/16/17 03:32 Phosphorus 4.3 mg/dL (2.7-4.5) 11/16/17 03:32 Magnesium 1.9 mg/dL (1.6-2.6) 11/16/17 03:32 Consult Discharge Plan - Plan Referrals: Yonatan Aleman DO [Primary Care Provider] - 11/20/17 9:30 am ()
[2017-11-16] MEDS: Nicotine 14 MG PATCH.TD24 TD SCH (08:48)
[2017-11-16] MEDS: MethylPREDNISolone 40 MG/ML VIAL IVP SCH ×2 (08:50→17:55)
[2017-11-16] MEDS: *HR* Promethazine 25 MG/ML VIAL IVP PRN (08:50)
[2017-11-16] MEDS ORDERED: *HR* Promethazine 25 MG/ML VIAL IVP PRN (09:05)
[2017-11-16] MEDS ORDERED: *HR* Promethazine 25 MG/ML VIAL IVP ONE (10:55)
--- NOTE | 2017-11-16 13:34 | Internal Med Progress Note ---
Date of Encounter: 11/16/17 Time of Encounter: 11:30 - Assessment and plan (1) Acute on chronic respiratory failure with hypoxia Current Visit: Yes Status: Acute Assessment and plan: secondary to acute COPD exacerbation complicated by bacterial and human metapneumovirus pna s/p extubation on 11/13/17 clinically improving continue systemic steroids (Solumedrol 40mg IV q8h), bronchodilator suport O2 supplementation monitor O2 sat, goal O2 sat: 88-92% bipap support as needed continue IV Zosyn (Day 6 of abx, will treat for a total of ten days). Vancomycin discontinued continue ICS will closely monitor respiratory status (2) HCAP (healthcare-associated pneumonia) Current Visit: No Status: Acute Assessment and plan: plan as listed above (3) COPD exacerbation Current Visit: Yes Status: Acute Assessment and plan: as listed above (4) Anemia Current Visit: Yes Status: Chronic Assessment and plan: patient receiving Aranesp as per nephrology H&H low but acceptable no acute bleeding reported at this time will continue to closely monitor GI evaluation requested given episode of coffee ground emesis will repeat H&H this evening transfuse for hgb<7 NPO after midnight clear liquid diet at this time will continue to closely monitor Qualifiers: Anemia type: due to chronic kidney disease Chronic kidney disease stage: on chronic dialysis Qualified Code(s): N18.6 - End stage renal disease; D63.1 - Anemia in chronic kidney disease; D63.1 - Anemia in chronic kidney disease; Z99.2 - Dependence on renal dialysis; Z99.2 - Dependence on renal dialysis; Z99.2 - Dependence on renal dialysis; Z99.2 - Dependence on renal dialysis (5) CAD (coronary artery disease) Current Visit: No Status: Chronic Assessment and plan: no signs of angina continue home meds Qualifiers: Coronary Disease-Associated Artery/Lesion type: unspecified vessel or lesion type [place] vs. transplanted heart: unspecified whether [place] or transplanted heart Associated angina: angina presence unspecified Qualified Code(s): I25.10 - Atherosclerotic heart disease of [place] coronary artery without angina pectoris (6) ESRD (end stage renal disease) on dialysis Current Visit: Yes Status: Chronic Assessment and plan: nephrology evaluation appreciated continue HD (MWF) (7) Hypertension Current Visit: No Status: Chronic Assessment and plan: BP better controlled continue IV hydralazine 10mg IV q6h prn SBP>160 if pt unable to tolerate PO meds, will start sakina dose of lopressor for BP/HR control closely monitor BP Qualifiers: Hypertension type: essential hypertension Qualified Code(s): I10 - Essential (primary) hypertension (8) Hypothyroidism Current Visit: No Status: Chronic Assessment and plan: continue home dose of levothyroxine Qualifiers: Hypothyroidism type: acquired Qualified Code(s): E03.9 - Hypothyroidism, unspecified (9) DVT prophylaxis Current Visit: Yes Status: Acute Assessment and plan: SCD - Time Spent With Patient Total time spent is greater than 50% in coordination of care (as documented) at patient's floor/unit and/or counseling patient: - Subjective Interval history: Patient is a 67y/o female who was admitted to ICU for acute respiratory failure requiring intubation secondary to COPD exacerbation, PNA, and human metapneumovirus. She was extubated on 11/13/17 and transferred to on 11/14/17. Pt seen and examined at bedside. Pt was reported to be nauseous and vomiting overnight, this morning this noted to have coffee ground emesis and was not able to tolerate any PO Intake due to the nausea, and had not received any of her PO medications. She was noted to have elevated BP. She was given Hydralazine IV and Labetalol IV with improvement in BP Phenergan dose was increased to 12.5mg IV which improved pt's nausea Pt was also informed by the palliative care team that her is critically ill in the ICU and that contributed to patient's symptoms. - Constitutional Vitals: Temp Pulse Resp BP Pulse Ox 99.8 F H 106 18 162/84 99 11/16/17 11:00 11/16/17 11:24 11/16/17 11:30 11/16/17 12:58 11/16/17 11:21 General appearance: Present: A&O X 3 (frail), pleasant, no acute distress - Head Head exam: Present: atraumatic, normocephalic - Respiratory Respiratory exam: Absent: respiratory distress, wheezes (equal air entry bilaterally) - Cardiovascular Cardiovascular exam: Present: +S1, +S2, tachycardia - GI/Abdominal GI/Abdominal exam: Present: normal bowel sounds, soft, no peritoneal signs. Absent: distended, tenderness - Extremities Exam Extremities exam: Present: warm, radial pulses palpable and symmetrical. Absent : calf tenderness - Neurological Exam Neurological exam: Present: oriented X3 Internal Medicine: Result - Labs CBC & Chem 7: 11/16/17 03:32 11/16/17 03:32 Labs: Short CBC 11/16/17 Range/Units 03:32 WBC 13.1 H D (4.3-11.1) K/mcL Hgb 10.3 L (11.5-15.4) g/dL Hct 31.9 L (35.3-44.9) % Plt Count 153 (140-400) K/mcL Neutrophils # 11.0 H (1.6-8.9) K/mcL BMP 11/16/17 03:32 Sodium 138 Potassium 3.9 Chloride 96 L Carbon Dioxide 31 H BUN 26 H Creatinine 3.32 H Glucose 119 H Calcium 9.6 - ABG Interpretation ABG results: ABG ABG pH 7.32 pH Units (7.32-7.45) 11/13/17 05:12 ABG pCO2 55 mmHg (35-45) H 11/13/17 05:12 ABG pO2 70 mmHg (85-104) L 11/13/17 05:12 ABG O2 Saturation 92 % (95-98) L 11/13/17 05:12 PT/INR, D-dimer D-Dimer 2242 ng/mLFEU (0-500) H 11/11/17 20:37 Consult Discharge Plan - Plan Referrals: Yonatan Aleman DO [Primary Care Provider] - 11/20/17 9:30 am ()
[2017-11-16] MEDS: NIFEdipine XL (24 HR) 30 MG TAB.ER.24 PO SCH (13:49)
[2017-11-16] MEDS ORDERED: *HR* OxyCODONE/APAP 10/325 TABLET PO PRN (16:52)
[2017-11-16] MEDS: Aspirin 81 MG TAB.CHEW PO SCH (17:43)
[2017-11-16] MEDS: *HR* OxyCODONE Immed Rel 5 MG TABLET PO PRN (17:54)
[2017-11-16 19:22] LABS: Hematocrit 28.1 % (35.3-44.9); Mean Corpuscular Hemoglobin 30.5 pg (28.0-33.3); Mean Corpuscular Volume 95.3 fL (83.0-100.0); Mean Platelet Volume 9.8 fL (9.4-12.4); Nucleated Red Blood Cells 1.2 /100 WBC (0); Platelet Count 160 K/mcL (140-400); Red Blood Count 2.95 M/mcL (3.82-4.97); Red Cell Distribution Width 14.2 % (11.5-14.5)
[2017-11-16 19:58] LABS: Lymphocytes # 0.6 K/mcL (0.6-4.6); Monocytes # 1.9 K/mcL (0.0-1.3); Neutrophils # 13.4 K/mcL (1.6-8.9)
[2017-11-16 19:59] LABS: Anisocytosis 1+ (Not Present); Platelet Estimate Normal (Normal); Polychromasia 1+ (Not Present); Reactive Lymphocytes Present (Not Present)
[2017-11-16 22:55] LABS: Bilirubin,Urine Negative (Negative); Blood,Urine Large (Negative); Clarity,Urine Clear (Clear); Color,Urine Yellow (Yellow); Glucose,Urine (UA) 100 mg/dL (Normal); Ketones,Urine Negative (Negative); Leukocyte Esterase,Urine Negative (Negative); Nitrite,Urine Negative (Negative); Protein,Urine 100 mg/dL (Neg-Trace); Specific Gravity,Urine 1.013 (1.010-1.025); Urobilinogen,Urine Normal (Normal)
[2017-11-16 23:02] LABS: Bacteria,Urine None Seen per hpf (None-Few); Hyaline Casts,Urine None Seen per lpf (None-Few); RBC,Urine 50-100 per hpf (0-3); Squamous Epithelial Cell,Urine Moderate per lpf (None-Few)
[2017-11-17] MEDS: Ipratropium/Albuterol Neb 3 ML IH SCH ×7 (00:04→23:40)
[2017-11-17] MEDS: *HR* OxyCODONE Immed Rel 5 MG TABLET PO PRN ×3 (00:52→17:10)
[2017-11-17] MEDS: Ondansetron 4 MG/2 ML VIAL IVP PRN (00:52)
[2017-11-17] MEDS: Pantoprazole 40 MG VIAL IVP SCH ×2 (00:53→13:41)
[2017-11-17 05:33] LABS: Hematocrit 28.3 % (35.3-44.9); Hemoglobin 9.1 g/dL (11.5-15.4); Mean Corpuscular HGB Conc 32.2 g/dL (31.6-35.5); Mean Corpuscular Volume 96.3 fL (83.0-100.0); Mean Platelet Volume 9.5 fL (9.4-12.4); Nucleated Red Blood Cells 0.9 /100 WBC (0); Platelet Count 153 K/mcL (140-400); Red Blood Count 2.94 M/mcL (3.82-4.97); Red Cell Distribution Width 14.2 % (11.5-14.5)
[2017-11-17 05:55] LABS: Platelet Estimate Normal (Normal); Reactive Lymphocytes Present (Not Present)
[2017-11-17 05:58] LABS: Albumin 3.4 g/dL (3.5-5.7); Albumin/Globulin Ratio 1.3 (1.1-2.2); Bilirubin,Total 0.8 mg/dL (0.3-1.0); Calcium 9.7 mg/dL (8.6-10.3); Globulin 2.6 g/dL (2.4-3.5); Potassium 3.9 mEq/L (3.5-5.1)
[2017-11-17 05:59] LABS: Calcium 9.6 mg/dL (8.6-10.3); Lymphocytes # 1.5 K/mcL (0.6-4.6); Magnesium 1.9 mg/dL (1.6-2.6); Monocytes # 1.5 K/mcL (0.0-1.3); Neutrophils # 15.5 K/mcL (1.6-8.9); Phosphorous 4.6 mg/dL (2.7-4.5); Potassium 3.9 mEq/L (3.5-5.1)
[2017-11-17 06:00] LABS: Anisocytosis 1+ (Not Present); Polychromasia 1+ (Not Present)
[2017-11-17] MEDS: Piperacillin/Tazobactam 3.375 GM in 0.9 % Sodium Chloride Mini Bag 100 ML IVPB SCH ×2 (06:31→17:16)
[2017-11-17] MEDS: MethylPREDNISolone 40 MG/ML VIAL IVP SCH ×2 (06:32→17:10)
[2017-11-17] MEDS: Budesonide/Formoterol 80/4.5 MDI IH SCH ×2 (07:48→19:35)
[2017-11-17] MEDS ORDERED: 0.9 % Sodium Chloride 250 ML IVC PRN (09:18)
--- NOTE | 2017-11-17 09:18 | Nephrology Progress Note ---
Date of Encounter: 11/17/17 Time of Encounter: 09:17 - Assessment and Plan (1) End stage renal disease Current Visit: No Status: Chronic Patient will undergo dialysis today. Potassium is 3.9 so she will be dialyzed on a 3K bath. (2) Acute respiratory failure Current Visit: No Status: Acute Qualifiers: Respiratory failure complication: unspecified whether with hypoxia or hypercapnia Qualified Code(s): J96.00 - Acute respiratory failure, unspecified whether with hypoxia or hypercapnia (3) Anemia, chronic renal failure Current Visit: No Status: Acute Qualifiers: Chronic kidney disease stage: stage 5 Qualified Code(s): N18.5 - Chronic kidney disease, stage 5; D63.1 - Anemia in chronic kidney disease (4) Acute exacerbation of chronic obstructive airways disease Current Visit: No Status: Acute Subjective Principal diagnosis: Acute on chronic respiratory failure with hypoxia Interval history: The patient is still experiencing some nausea. She says her breathing is doing okay. Her blood pressures under better control. She is scheduled for dialysis today. Objective - Vital Signs Vital signs: Vital Signs Temp Pulse Resp BP Pulse Ox 11/17/17 08:00 98.2 F 110 21 144/81 96 11/17/17 07:39 98.2 F 110 23 144/81 96 11/17/17 03:54 20 95 11/17/17 03:30 98.4 F 108 16 174/77 96 11/17/17 00:40 98.2 F 100 17 172/94 96 11/17/17 00:05 20 96 11/16/17 20:53 97.4 F L 103 17 161/82 94 11/16/17 20:16 20 96 11/16/17 15:38 97.8 F 95 20 156/77 100 11/16/17 15:29 20 95 11/16/17 12:58 106 162/84 11/16/17 11:30 18 187/84 11/16/17 11:24 106 205/107 11/16/17 11:21 24 99 11/16/17 11:00 99.8 F H 106 18 203/107 Intake and Output 11/16/17 11/17/17 11/17/17 23:59 07:59 15:59 Intake Total 100 / 100 Output Total 0 / 0 350 / 350 Balance 100 / 100 -350 / -350 Intake: IV Fluids 100 / 100 Zosyn 3.375 GM In 0.9 % Sodium 100 / 100 Chloride (Mini-Bag +) 100 ML @ 25 mls/hr IVPB Q12HR [facility] Rx#: [id number] Output: Urine 350 / 350 Catheter 0 / 0 0 / 0 Other: # Bowel Movements 0 0 Weight 56.359 kg 56.3 kg Patient Weight 11/17/17 23:59 Weight 56.3 kg - General Appearance Exam: Patient is alert and oriented. She is in no acute distress. Lungs diminished breath sounds. Minimal rhonchi and no wheezing. Heart is tachycardic. Abdomen is benign. There is no lower extremity swelling. There is a functioning AV fistula in the left upper extremity. - Lab 11/17/17 05:22 11/17/17 05:22 Most recent lab results ABG pH 7.32 pH Units (7.32-7.45) 11/13/17 05:12 ABG pCO2 55 mmHg (35-45) H 11/13/17 05:12 ABG pO2 70 mmHg (85-104) L 11/13/17 05:12 ABG HCO3 28 mEq/L (21-27) H 11/13/17 05:12 ABG O2 Saturation 92 % (95-98) L 11/13/17 05:12 Calcium 9.6 mg/dL (8.6-10.3) 11/17/17 05:22 Phosphorus 4.6 mg/dL (2.7-4.5) H 11/17/17 05:22 Magnesium 1.9 mg/dL (1.6-2.6) 11/17/17 05:22 Consult Discharge Plan - Plan Referrals: Yonatan Aleman DO [Primary Care Provider] - 11/20/17 9:30 am ()
[2017-11-17] MEDS: NIFEdipine XL (24 HR) 30 MG TAB.ER.24 PO SCH (09:37)
[2017-11-17] MEDS: Aspirin 81 MG TAB.CHEW PO SCH (09:37)
[2017-11-17] MEDS: Nicotine 14 MG PATCH.TD24 TD SCH (09:39)
--- NOTE | 2017-11-17 11:11 | Anesthesia Evaluation PreOp ---
Date of Encounter: 11/17/17 Time of Encounter: 11:08 - Past History Planned Operation: EGD Cardiac History: Other (mpressions: LVEF 65%. Moderate concentric left ventricular hypertrophy. Mild left ventricular diastolic dysfunction. Atypical septal motion consistent with post-operative status. Normal right ventricular structure and function. Mild aortic regurgitation. Mild aortic sclerosis. Mean gradient 11 mmHg. No evidence of pulmonary hypertension.) Pulmonary History: COPD (with exacerbation), Other (acute respiratory failure requiring intubation, extubated 11/13/17 HCAP) Other Medical History: Renal (ESRD on HD), Thyroid (hypo), Other (anemia, chronic) Anesthesia History: No Prior Anesthetic Complications, Past Anesthesia Alcohol Use: none Drug use: none Medications and Allergies Albuterol Sulfate [Albuterol Inhaler] 2 puff IH Q4H PRN 06/02/15 [History] Atorvastatin [Lipitor] 40 mg PO HS 06/02/15 [History] Citalopram Hydrobromide [Citalopram HBr] 20 mg PO QAM 06/02/15 [History] Levothyroxine [Synthroid] 200 mcg PO QAM 06/02/15 [History] Metoprolol Tartrate 12.5 mg PO BID 06/02/15 [History] Omeprazole 40 mg PO QAM 06/02/15 [History] OxyCODONE Immed Rel [Roxicodone 10 MG] 10 mg PO Q6H PRN 06/02/15 [History] Aspirin 81 mg PO DAILY 09/22/15 [History] Docusate [Colace] 100 mg PO BID PRN 09/22/15 [History] B Complex with Vitamin C [[place] with C] 1 tab PO DAILY 02/22/16 [History] Sevelamer [Renvela] 800 mg PO TIDWM 08/29/16 [History] Fluticasone/Salmeterol [Advair Hfa 115-21 Mcg Inhaler] 2 puff IH BID 11/14/16 [ History] Ipratropium/Albuterol Neb [Duoneb] 3 ml IH QID PRN 11/14/16 [History] Renal Vitamin [Renal Caps Softgel] 1 mg PO DAILY 11/14/16 [History] Umeclidinium Spring [Incruse Ellipta] 62.5 mcg IH DAILY 11/12/17 [History] 3 Allergy/AdvReac Type Severity Reaction Status Date / Time ceftriaxone [From Rocephin] Allergy Hives Verified 11/11/17 20:19 levofloxacin [From Levaquin] Allergy Hives Verified 11/11/17 20:19 - Meds/Allergy Pre-op Review Medications Reviewed: Yes Allergies Reviewed: Yes Beta Blockers on Current Med List: Yes If Beta Blockers taken, Date/Time (Last Dose taken): 941 am 11/17/17 Anesthesia Results - Labs 11/17/17 05:22 11/17/17 05:22 - Imaging EKG: report reviewed (Interpretive Statements SINUS RHYTHM POSSIBLE LEFT ATRIAL ENLARGEMENT [-0.1mV P WAVE IN V1/V2] MINIMAL ST DEPRESSION [0.025+ mV ST DEPRESSION] Electronically Signed On 11-15-2017 0:26:54 EDT by Peg Colin) Anesthesia Exam O2 Sat Weight 56.3 kg Weight 56.359 kg O2 Sat by Pulse Oximetry 96 O2 Sat by Pulse Oximetry 96 O2 Sat by Pulse Oximetry 95 O2 Sat by Pulse Oximetry 96 O2 Sat by Pulse Oximetry 96 O2 Sat by Pulse Oximetry 96 O2 Sat by Pulse Oximetry 94 O2 Sat by Pulse Oximetry 96 O2 Sat by Pulse Oximetry 100 O2 Sat by Pulse Oximetry 95 O2 Sat by Pulse Oximetry 99 Vital Signs Temp Pulse Resp BP Pulse Ox 98.1 F 100 18 139/81 74 11/11/17 20:18 11/11/17 20:18 11/11/17 20:18 11/11/17 20:18 11/11/17 20:18 - HEENT Pupil (Motor): Pupils equal, EOMI Mallampati: II Teeth: Edentulous (upper) Oral Opening: Greater than 3 - LUNCHROOM WORKER LOC: Oriented LUNCHROOM WORKER Motor: Normal RUE, Normal LUE, Normal RLE, Normal LLE, Normal Face LUNCHROOM WORKER Sensory: Normal: RUE, LUE, RLE, LLE, Face - Cardiac Rhythm: Regular - Pulmonary Breath Sounds: bilateral Clear Respiratory Effort: Symmetrical Anesthesia Assess/Plan ASA Score: 4 Modified Caleb Scale for Level of Consciousness: Cooperative, oriented, and tranquil Anesthetic Plan: MAC Monitoring Plan: Standard Monitors Recovery Plan: PACU
--- NOTE | 2017-11-17 11:16 | Gastroenterology Consult Note ---
<BaronSubhash khoury Charlie - Last Filed: 11/17/17 11:13> Date of Encounter: 11/17/17 Time of Encounter: 10:10 - Assessment and plan (1) Coffee ground emesis Current Visit: Yes Status: Acute Assessment and plan: Plan for EGD today to r/o esophagitis, gastritis, duodenitis, PUD, MW tear, or AVM. Keep NPO for procedure. Continue PPI. (2) Anemia Current Visit: No Status: Acute Assessment and plan: Hgb 9.1 continue to monitor CBC and transfuse PRBC as needed. Plan for EGD today. Qualifiers: Anemia type: iron deficiency Iron deficiency anemia type: unspecified iron deficiency Qualified Code(s): D50.9 - Iron deficiency anemia, unspecified (3) End stage renal disease Current Visit: No Status: Chronic (4) Abnormal CBC Current Visit: Yes Status: Acute Assessment and plan: 1% blasts noted on CBC this AM. Recommend repeating peripheral smear with review by pathologist and consulting Hematology/Oncology. - Time Spent With Patient Total time spent is greater than 50% in coordination of care (as documented) at patient's floor/unit and/or counseling patient: GI History of Present Illness - Data of Consult Patient: new to practice Consult date: 11/17/17 Requesting Physician: Barbara Garcia MD - Consult Narrative Reason for consult: Coffee ground emesis History of present illness: Ms. Orellana is a 67 year old female with PMHx of arthritis, ESRD, CAD s/p CABG, HTN, who presented to the ED with complaint of hypoxia. She was visiting her who is currently in the ICU when family and staff noticed that she was acting strangely. Family reports this has been happening for the past 2 days. Pulse oximeter was placed and patient had an oxygen saturation in the 70s. She was sent to the emergency room for further evaluation. D-dimer was elevated at 2242 and subsequent CTA showed no evidence of pulmonary embolism did show possible aspiration pneumonia. She was admitted to the ICU with worsening ABGs on BiPAP and required intubation. She was extubated 11/13/17 and transferred out of the ICU on 11/14. We were consulted due to an episode of coffee ground emesis and has been unable to tolerate PO intake due to nausea. Procedures: None NSAIDs: ASA Anticoagulation: None Past Med Surg Social Fam HX - Past Medical History Medical history: arthritis, dialysis, hyperlipidemia, hypertension, renal disease, thyroid disease Psychiatric history: anxiety, depression - Past Surgical History Surgical History: coronary bypass (CABG), other (Left arm dialysis shunt) - Social History Smoking Status: Current every day smoker Smokeless Tobacco Status: No Alcohol use: none Drug use: none - Family History Brother Family Member Ethnicity: Unknown Hx Family Cardiac Disorders: Yes (one brother passed sudden heart attack) Mother Living Status: Hx Family Cancer: Yes (lung cancer) Father Living Status: Hx Family Cancer: Yes (lung cancer) - Gastrointestinal Gastrointestinal: Present: as per HPI - Constitutional Constitutional: as per HPI - EENT Eyes: as per HPI Ears: Present: as per HPI Nose, mouth and throat: Present: as per HPI - Cardiovascular Cardiovascular ROS: Present: as per HPI - Respiratory Respiratory IM: Present: as per HPI - Genitourinary Genitourinary: Absent: change in color, Urinary frequency - Neurological ROS Neurological GI: Present: as per HPI - Hematologic/Lymphatic Hematologic/Lymphatic pediatric: Present: as per HPI - Musculoskeletal Musculoskeletal ROS GI: Present: as per HPI - Integumentary Integumentary GI: Present: as per HPI - Psychiatric ROS Psychiatric GI: Present: as per HPI - Endocrine Endocrine IM: Present: as per HPI - Constitutional Vitals: Temp Pulse Resp BP Pulse Ox 98.2 F 110 21 144/81 96 11/17/17 08:00 11/17/17 08:00 11/17/17 08:00 11/17/17 08:00 11/17/17 08:00 General appearance: Present: cooperative, A&O X 3, no acute distress, answers questions appropriately - Head Head exam: Present: atraumatic, normocephalic - Eye Eye exam: Present: normal appearance, sclera anicteric - ENT ENT exam: Present: mucous membranes dry - Neck Neck exam general surgery: Present: normal inspection, trachea midline - Respiratory Respiratory exam: Present: decreased breath sounds, CTAB. Absent: rales, rhonchi - Cardiovascular Cardiovascular exam: Present: RRR, +S1, +S2 - GI/Abdominal GI/Abdominal exam: Present: soft, no peritoneal signs. Absent: distended, firm , guarding, tenderness - Rectal Rectal exam: Present: deferred - Extremities Exam Extremities exam: Present: warm - Neurological Exam Neurological exam: Present: no focal deficits - Psychiatric Psychiatric exam: Present: normal affect, normal mood - Skin Skin exam: Present: dry, intact, normal color, warm Results - Labs CBC & Chem 7: 11/17/17 05:22 11/17/17 05:22 Labs: Last Result Calcium 9.6 mg/dL (8.6-10.3) 11/17/17 05:22 Troponin I 0.06 ng/mL (< 0.04) H* 11/12/17 03:10 Entire Visit Hgb 9.1 g/dL (11.5-15.4) L 11/17/17 05:22 Hct 28.3 % (35.3-44.9) L 11/17/17 05:22 Total Bilirubin 0.8 mg/dL (0.3-1.0) 11/17/17 05:22 AST 15 Units/L (13-39) 11/17/17 05:22 ALT 5 Units/L (7-52) L 11/17/17 05:22 - ABG ABG results: ABG ABG pH 7.32 pH Units (7.32-7.45) 11/13/17 05:12 ABG pCO2 55 mmHg (35-45) H 11/13/17 05:12 ABG pO2 70 mmHg (85-104) L 11/13/17 05:12 ABG O2 Saturation 92 % (95-98) L 11/13/17 05:12 PT/INR, D-dimer D-Dimer 2242 ng/mLFEU (0-500) H 11/11/17 20:37 Consult Discharge Plan - Plan Referrals: Yonatan Aleman DO [Primary Care Provider] - 11/20/17 9:30 am () <Jennifer Llanes - Last Filed: 11/17/17 22:49> Date of Encounter: 11/17/17 Time of Encounter: 12:00 - Time Spent With Patient Total time spent is greater than 50% in coordination of care (as documented) at patient's floor/unit and/or counseling patient: GI History of Present Illness - Data of Consult Requesting Physician: Barbara Garcia MD - Consult Narrative History of present illness: Ms. Orellana is a 67 year old female - Constitutional Vitals: Temp Pulse Resp BP Pulse Ox 97.4 F L 106 16 154/81 98 11/17/17 18:46 11/17/17 18:46 11/17/17 19:35 11/17/17 18:46 11/17/17 19:35 Results - Labs CBC & Chem 7: 11/17/17 05:22 11/17/17 05:22 Labs: Last Result Calcium 9.6 mg/dL (8.6-10.3) 11/17/17 05:22 Troponin I 0.06 ng/mL (< 0.04) H* 11/12/17 03:10 Entire Visit Hgb 9.1 g/dL (11.5-15.4) L 11/17/17 05:22 Hct 28.3 % (35.3-44.9) L 11/17/17 05:22 Total Bilirubin 0.8 mg/dL (0.3-1.0) 11/17/17 05:22 AST 15 Units/L (13-39) 11/17/17 05:22 ALT 5 Units/L (7-52) L 11/17/17 05:22 - ABG ABG results: ABG ABG pH 7.32 pH Units (7.32-7.45) 11/13/17 05:12 ABG pCO2 55 mmHg (35-45) H 11/13/17 05:12 ABG pO2 70 mmHg (85-104) L 11/13/17 05:12 ABG O2 Saturation 92 % (95-98) L 11/13/17 05:12 PT/INR, D-dimer D-Dimer 2242 ng/mLFEU (0-500) H 11/11/17 20:37 - Attending Attestation I have personally performed a face to face evaluation on this patient. I have reviewed and agree with the care plan. History and Exam by me shows: Pt seen, ESR on HD now with coffe ground emesis. Rec: Follow H/H. EGD today
--- NOTE | 2017-11-17 11:29 | Internal Med Progress Note ---
Date of Encounter: 11/17/17 Time of Encounter: 11:27 - Assessment and plan (1) Leukocytosis Current Visit: Yes Status: Acute Assessment and plan: Blasts noted. Heme/onc to see. Leukocytosis possibly exacerbated by being on steroids as well. Qualifiers: Leukocytosis type: unspecified Qualified Code(s): D72.829 - Elevated white blood cell count, unspecified (2) Anemia Current Visit: Yes Status: Chronic Assessment and plan: Patient had an episode of coffee-ground emesis. GI is evaluating. Plans for EGD. We will follow-up on that. Continue PPI. Hemoglobin is stable. Qualifiers: Anemia type: due to chronic kidney disease Chronic kidney disease stage: on chronic dialysis Qualified Code(s): N18.6 - End stage renal disease; D63.1 - Anemia in chronic kidney disease; D63.1 - Anemia in chronic kidney disease; Z99.2 - Dependence on renal dialysis; Z99.2 - Dependence on renal dialysis; Z99.2 - Dependence on renal dialysis; Z99.2 - Dependence on renal dialysis (3) Acute on chronic respiratory failure with hypoxia Current Visit: Yes Status: Acute Assessment and plan: secondary to acute COPD exacerbation complicated by bacterial and human metapneumovirus pna. Patient was extubated on 11/13. We will continue IV Solu- Medrol every 12 hours today and switch to oral tomorrow. Continue nebs. Continue O2 support. Continue Zosyn day 7. (4) HCAP (healthcare-associated pneumonia) Current Visit: No Status: Acute Assessment and plan: plan as listed above (5) COPD exacerbation Current Visit: Yes Status: Acute Assessment and plan: as listed above (6) Hypertension Current Visit: No Status: Chronic Assessment and plan: Blood pressure stable. Continue current meds. Qualifiers: Hypertension type: essential hypertension Qualified Code(s): I10 - Essential (primary) hypertension (7) Hypothyroidism Current Visit: No Status: Chronic Assessment and plan: continue home dose of levothyroxine Qualifiers: Hypothyroidism type: acquired Qualified Code(s): E03.9 - Hypothyroidism, unspecified (8) ESRD (end stage renal disease) on dialysis Current Visit: Yes Status: Chronic Assessment and plan: nephrology evaluation appreciated continue HD (MWF) (9) CAD (coronary artery disease) Current Visit: No Status: Chronic Assessment and plan: no signs of angina continue home meds Qualifiers: Coronary Disease-Associated Artery/Lesion type: unspecified vessel or lesion type [place] vs. transplanted heart: unspecified whether [place] or transplanted heart Associated angina: angina presence unspecified Qualified Code(s): I25.10 - Atherosclerotic heart disease of [place] coronary artery without angina pectoris (10) DVT prophylaxis Current Visit: Yes Status: Acute Assessment and plan: SCD - Time Spent With Patient Total time spent is greater than 50% in coordination of care (as documented) at patient's floor/unit and/or counseling patient: - Subjective Interval history: Patient was seen and examined. No acute events. Had issues with coffee-ground emesis yesterday for which GI is evaluating him plans for scopes. Currently on 3 L. Patient was admitted initially to the ICU and is status post extubation and is being treated for pneumonia. - Constitutional Vitals: Temp Pulse Resp BP Pulse Ox 98.4 F 108 23 148/77 96 11/17/17 11:23 11/17/17 11:23 11/17/17 11:23 11/17/17 11:23 11/17/17 11:23 General appearance: Present: A&O X 3 (frail), pleasant, no acute distress Exam: GEN: NAD CVS: RRR. S1, S2, No m/r/g RESP: Diminished. ABD: Soft, NT, ND, +BS EXT: No edema. 2+ DP, No rashes NEURO: Nonfocal Internal Medicine: Result - Labs CBC & Chem 7: 11/17/17 05:22 11/17/17 05:22 Labs: Short CBC 11/16/17 11/17/17 Range/Units 19:04 05:22 WBC 16.0 H 18.9 H (4.3-11.1) K/mcL Hgb 9.0 L 9.1 L (11.5-15.4) g/dL Hct 28.1 L 28.3 L (35.3-44.9) % Plt Count 160 153 (140-400) K/mcL Neutrophils # 13.4 H 15.5 H (1.6-8.9) K/mcL BMP 11/17/17 11/17/17 05:22 05:22 Sodium 137 137 Potassium 3.9 3.9 Chloride 96 L 96 L Carbon Dioxide 26 26 BUN 78 H 79 H Creatinine 5.14 H 5.13 H Glucose 121 H 122 H Calcium 9.6 9.7 Liver Function 11/17/17 Range/Units 05:22 Total Bilirubin 0.8 (0.3-1.0) mg/dL AST 15 (13-39) Units/L ALT 5 L (7-52) Units/L Alkaline Phosphatase 56 (34-104) Units/L Albumin 3.4 L (3.5-5.7) g/dL Urine 11/16/17 Range/Units 22:45 Urine Color Yellow (Yellow) Urine Clarity Clear (Clear) Urine pH 8.0 (5.0-8.0) pH Units Ur Specific Melvin 1.013 (1.010-1.025) Urine Protein 100 H (Neg-Trace) mg/dL Urine Glucose (UA) 100 H (Normal) mg/dL - ABG Interpretation ABG results: ABG ABG pH 7.32 pH Units (7.32-7.45) 11/13/17 05:12 ABG pCO2 55 mmHg (35-45) H 11/13/17 05:12 ABG pO2 70 mmHg (85-104) L 11/13/17 05:12 ABG O2 Saturation 92 % (95-98) L 11/13/17 05:12 PT/INR, D-dimer D-Dimer 2242 ng/mLFEU (0-500) H 11/11/17 20:37 Consult Discharge Plan - Plan Referrals: Yonatan Aleman DO [Primary Care Provider] - 11/20/17 9:30 am ()
[2017-11-17] MEDS ORDERED: *HR* Propofol 200 MG/20 ML VIAL IVP ONE (11:38)
--- NOTE | 2017-11-17 16:39 | Oncology Inp Consult Note ---
Date of Encounter: 11/17/17 Time of Encounter: 16:38 Assessment and Plan (1) Leukocytosis Status: Acute Assessment and plan: 1% blasts noted with CBC. Discussed with Dr. Fitch along with review of lab work data. Given complicated recent history of acute infection, it is difficult to determine accurate CBC picture at this time. Leukocytosis appears to be acute during hospitalization in trending labs. Anemia of chronic disease noted. No thrombocytopenia. Peripheral blood smear with pathology review has been ordered along with peripheral blood flow for further assessment and confirmation of blasts. Patient will need further follow up with Dr. Fitch on outpatient basis. Qualifiers: Leukocytosis type: unspecified Qualified Code(s): D72.829 - Elevated white blood cell count, unspecified (2) Anemia in chronic kidney disease Status: Chronic Assessment and plan: Chronic in nature secondary to anemia of chronic disease, CKD. She had an episode of coffee ground emesis yesterday. Hgb stable at 9.1. S/P EGD with oozing gastric ulcer with clot, clip placed and area injected. She receives Aranesp per nephrology. Please refer to Dr. Fitch's attestation below for additional details. Qualifiers: Chronic kidney disease stage: unspecified stage Qualified Code(s): N18.9 - Chronic kidney disease, unspecified; D63.1 - Anemia in chronic kidney disease; D63.1 - Anemia in chronic kidney disease - Data of Consult Patient: new to practice Consult date: 11/17/17 Requesting Physician: Barbara Garcia MD Primary Care Provider: Yonatan Aleman, - Consult Narrative Reason for consult: Leukocytosis History of present illness: Ms. Orellana is a 67 year old female this and hospitalized for the past following week requiring ICU admission for acute on chronic respiratory failure requiring intubation, ESRD on HD with Aranesp therapy, CAD, hypertension and hypothyroidism. Acute respiratory failure secondary to acute COPD exacerbation complicated by bacterial and human metapneumovirus pna. Patient was extubated on 11/13 and now in step down unit. Past Med Surg Social Fam HX - Past Medical History Medical history: arthritis, dialysis, hyperlipidemia, hypertension, renal disease, thyroid disease Psychiatric history: anxiety, depression - Past Surgical History Surgical History: coronary bypass (CABG), other (Left arm dialysis shunt) - Social History Smoking Status: Current every day smoker Smokeless Tobacco Status: No Alcohol use: none Drug use: none - Family History Brother Family Member Ethnicity: Unknown Hx Family Cardiac Disorders: Yes (one brother passed sudden heart attack) Mother Living Status: Hx Family Cancer: Yes (lung cancer) Father Living Status: Hx Family Cancer: Yes (lung cancer) Medications and Allergies Albuterol Sulfate [Albuterol Inhaler] 2 puff IH Q4H PRN 06/02/15 [History] Atorvastatin [Lipitor] 40 mg PO HS 06/02/15 [History] Citalopram Hydrobromide [Citalopram HBr] 20 mg PO QAM 06/02/15 [History] Levothyroxine [Synthroid] 200 mcg PO QAM 06/02/15 [History] Metoprolol Tartrate 12.5 mg PO BID 06/02/15 [History] Omeprazole 40 mg PO QAM 06/02/15 [History] OxyCODONE Immed Rel [Roxicodone 10 MG] 10 mg PO Q6H PRN 06/02/15 [History] Aspirin 81 mg PO DAILY 09/22/15 [History] Docusate [Colace] 100 mg PO BID PRN 09/22/15 [History] B Complex with Vitamin C [[place] with C] 1 tab PO DAILY 02/22/16 [History] Sevelamer [Renvela] 800 mg PO TIDWM 08/29/16 [History] Fluticasone/Salmeterol [Advair Hfa 115-21 Mcg Inhaler] 2 puff IH BID 11/14/16 [ History] Ipratropium/Albuterol Neb [Duoneb] 3 ml IH QID PRN 11/14/16 [History] Renal Vitamin [Renal Caps Softgel] 1 mg PO DAILY 11/14/16 [History] Umeclidinium [place] [Incruse Ellipta] 62.5 mcg IH DAILY 11/12/17 [History] 3 Allergy/AdvReac Type Severity Reaction Status Date / Time ceftriaxone [From Rocephin] Allergy Hives Verified 11/11/17 20:19 levofloxacin [From Levaquin] Allergy Hives Verified 11/11/17 20:19 Oncology - Exam - Constitutional Vitals: Temp Pulse Resp BP Pulse Ox 97.5 F L 104 18 122/78 96 11/17/17 16:20 11/17/17 13:48 11/17/17 13:48 11/17/17 16:03 11/17/17 16:20 Oncology - Results Labs: Short CBC 11/16/17 11/17/17 Range/Units 19:04 05:22 WBC 16.0 H 18.9 H (4.3-11.1) K/mcL Hgb 9.0 L 9.1 L (11.5-15.4) g/dL Hct 28.1 L 28.3 L (35.3-44.9) % Plt Count 160 153 (140-400) K/mcL Neutrophils # 13.4 H 15.5 H (1.6-8.9) K/mcL BMP 11/17/17 11/17/17 05:22 05:22 Sodium 137 137 Potassium 3.9 3.9 Chloride 96 L 96 L Carbon Dioxide 26 26 BUN 78 H 79 H Creatinine 5.14 H 5.13 H Glucose 121 H 122 H Calcium 9.6 9.7 Liver Function 11/17/17 Range/Units 05:22 Total Bilirubin 0.8 (0.3-1.0) mg/dL AST 15 (13-39) Units/L ALT 5 L (7-52) Units/L Alkaline Phosphatase 56 (34-104) Units/L Albumin 3.4 L (3.5-5.7) g/dL Urine 11/16/17 Range/Units 22:45 Urine Color Yellow (Yellow) Urine Clarity Clear (Clear) Urine pH 8.0 (5.0-8.0) pH Units Ur Specific [place] 1.013 (1.010-1.025) Urine Protein 100 H (Neg-Trace) mg/dL Urine Glucose (UA) 100 H (Normal) mg/dL Consult Discharge Plan - Plan Referrals: Yonatan Aleman DO [Primary Care Provider] - 11/20/17 9:30 am ()
[2017-11-17] MEDS: Acetaminophen 325 MG TABLET PO PRN (21:21)
[2017-11-18] MEDS: Pantoprazole 40 MG VIAL IVP SCH ×2 (00:07→12:15)
[2017-11-18] MEDS: *HR* OxyCODONE Immed Rel 5 MG TABLET PO PRN ×3 (00:07→13:14)
[2017-11-18] MEDS: Ipratropium/Albuterol Neb 3 ML IH SCH ×6 (03:27→23:23)
[2017-11-18] MEDS: MethylPREDNISolone 40 MG/ML VIAL IVP SCH (05:18)
[2017-11-18] MEDS: Piperacillin/Tazobactam 3.375 GM in 0.9 % Sodium Chloride Mini Bag 100 ML IVPB SCH ×2 (05:18→17:45)
[2017-11-18 05:45] LABS: Hematocrit 30.9 % (35.3-44.9); Hemoglobin 9.9 g/dL (11.5-15.4); Mean Corpuscular Hemoglobin 31.2 pg (28.0-33.3); Mean Corpuscular Volume 97.5 fL (83.0-100.0); Mean Platelet Volume 9.7 fL (9.4-12.4); Nucleated Red Blood Cells 0.5 /100 WBC (0); Platelet Count 153 K/mcL (140-400); Red Blood Count 3.17 M/mcL (3.82-4.97); Red Cell Distribution Width 14.4 % (11.5-14.5)
[2017-11-18 06:00] LABS: Calcium 9.6 mg/dL (8.6-10.3); Magnesium 1.8 mg/dL (1.6-2.6); Potassium 3.9 mEq/L (3.5-5.1)
[2017-11-18 06:25] LABS: Lymphocytes # 2.9 K/mcL (0.6-4.6); Monocytes # 2.2 K/mcL (0.0-1.3); Neutrophils # 16.4 K/mcL (1.6-8.9)
[2017-11-18 06:26] LABS: Anisocytosis 2+ (Not Present)
[2017-11-18 06:27] LABS: Macrocytosis Present (Not Present); Platelet Clumps Few (Not Present); Platelet Estimate Normal (Normal); Polychromasia 1+ (Not Present); Reactive Lymphocytes Present (Not Present)
[2017-11-18] MEDS: Ondansetron 4 MG/2 ML VIAL IVP PRN ×2 (06:41→15:00)
[2017-11-18] MEDS: Budesonide/Formoterol 80/4.5 MDI IH SCH ×2 (07:23→19:52)
[2017-11-18] MEDS: Nicotine 14 MG PATCH.TD24 TD SCH (08:15)
--- NOTE | 2017-11-18 08:15 | Nephrology Progress Note ---
Date of Encounter: 11/18/17 Time of Encounter: 08:14 - Assessment and Plan (1) End stage renal disease Current Visit: No Status: Chronic The patient's last dialysis was yesterday. She will continue to be supported with dialysis every Monday. (2) Acute respiratory failure Current Visit: No Status: Acute Qualifiers: Respiratory failure complication: unspecified whether with hypoxia or hypercapnia Qualified Code(s): J96.00 - Acute respiratory failure, unspecified whether with hypoxia or hypercapnia (3) Anemia, chronic renal failure Current Visit: No Status: Acute Qualifiers: Chronic kidney disease stage: stage 5 Qualified Code(s): N18.5 - Chronic kidney disease, stage 5; D63.1 - Anemia in chronic kidney disease (4) Acute exacerbation of chronic obstructive airways disease Current Visit: No Status: Acute Subjective Principal diagnosis: Acute on chronic respiratory failure with hypoxia Interval history: The patient is still experiencing some nausea. The patient underwent an EGD yesterday was noted to have a bleeding ulcer. I believe the ulcer was cauterized. She says her breathing is been okay. She is experiencing some difficulty sleeping. She has been evaluated for leukocytosis in the setting of IV steroids. Objective - Vital Signs Vital signs: Vital Signs Temp Pulse Resp BP Pulse Ox 11/18/17 07:26 18 99 11/18/17 04:04 98.0 F 100 18 166/83 95 11/18/17 00:26 97.9 F 101 18 155/87 95 11/17/17 23:40 16 98 11/17/17 19:35 16 98 11/17/17 18:46 97.4 F L 106 20 154/81 96 11/17/17 16:40 97.6 F 20 123/81 11/17/17 16:25 122/78 11/17/17 16:20 97.5 F L 96 11/17/17 16:10 123/73 11/17/17 15:55 125/77 11/17/17 15:40 131/80 11/17/17 15:25 128/76 11/17/17 15:10 130/79 11/17/17 14:55 134/76 11/17/17 14:40 142/74 11/17/17 14:25 161/81 11/17/17 14:10 166/83 11/17/17 13:55 160/80 11/17/17 13:48 97.7 F 104 18 157/80 94 11/17/17 13:40 162/82 11/17/17 13:25 97.7 F 18 164/82 11/17/17 12:08 98.4 F 102 20 141/74 97 11/17/17 11:38 18 99 11/17/17 11:23 98.4 F 108 23 148/77 96 Intake and Output 11/17/17 11/18/17 11/18/17 23:59 07:59 15:59 Intake Total 160 / 160 300 / 300 Output Total 3200 / 3200 225 / 225 Balance -3040 / -3040 75 / 75 Intake: IV Fluids 100 / 100 Zosyn 3.375 GM In 0.9 % Sodium 100 / 100 Chloride (Mini-Bag +) 100 ML @ 25 mls/hr IVPB Q12HR MILES Rx#: [id number] Oral 60 / 60 300 / 300 Output: Urine 25 / 25 Urine/Stool Mix 200 / 200 Total Dialysis (HD) Output 2600 / 2600 Catheter 600 / 600 Other: Meal NPO Percent of Meal Consumed 0% Stool Color Black Weight 54.794 kg Hemodialysis Net Fluid Removed 2000 (mL) Patient Weight 11/18/17 23:59 Weight 54.794 kg - General Appearance Exam: Patient is alert and oriented. She appears chronically ill. Lungs sounds with occasional rhonchi. Heart regular rate and rhythm. Heart rate is tachycardic. Abdomen was benign. There is no lower extremity swelling. There is a functioning AV fistula in the left upper extremity. - Lab 11/18/17 05:26 11/18/17 05:26 Most recent lab results ABG pH 7.32 pH Units (7.32-7.45) 11/13/17 05:12 ABG pCO2 55 mmHg (35-45) H 11/13/17 05:12 ABG pO2 70 mmHg (85-104) L 11/13/17 05:12 ABG HCO3 28 mEq/L (21-27) H 11/13/17 05:12 ABG O2 Saturation 92 % (95-98) L 11/13/17 05:12 Calcium 9.6 mg/dL (8.6-10.3) 11/18/17 05:26 Phosphorus 4.6 mg/dL (2.7-4.5) H 11/17/17 05:22 Magnesium 1.8 mg/dL (1.6-2.6) 11/18/17 05:26 - VTE Documentation of Mechanical Device: Intermittent pneumatic compression device Consult Discharge Plan - Plan Referrals: Yonatan Aleman DO [Primary Care Provider] - 11/20/17 9:30 am ()
[2017-11-18] MEDS: Aspirin 81 MG TAB.CHEW PO SCH (08:16)
[2017-11-18] MEDS: NIFEdipine XL (24 HR) 30 MG TAB.ER.24 PO SCH (08:16)
--- NOTE | 2017-11-18 09:39 | Event Note ---
Date of Encounter: 11/18/17 Time of Encounter: 17:00 Patient was seen bedside yesterday,history and physical reviewed, performed a independent examination, assessment and plan was completed reviewed with the Kaylen Stubbs nurse practitioner and I agree with her documented consultation. Lab data reviewed, stable hemoglobin and platelet counts and recent leukocytosis left shifted possibly reactive/meds related, WBC up to 21,000 today. Peripheral blood flow cytometry to be sent. We will have hematopathology review peripheral smear. On Darbepoetin for anemia related to renal insufficiency. I examined this patient and my medical decision-making was reviewed with the Advanced Practice Nurse. I agree with the documented findings, disposition and treatment plan as described except to the extent set forth
--- NOTE | 2017-11-18 09:59 | Internal Med Progress Note ---
Date of Encounter: 11/18/17 Time of Encounter: 09:57 - Assessment and plan (1) Leukocytosis Current Visit: Yes Status: Acute Assessment and plan: Blasts noted yesterday. Myelocytes noted today. Heme/onc following and sent for peripher smear and cytometry. WBC up to 21.9 today. Leukocytosis possibly exacerbated by being on steroids as well. Qualifiers: Leukocytosis type: unspecified Qualified Code(s): D72.829 - Elevated white blood cell count, unspecified (2) Anemia Current Visit: Yes Status: Chronic Assessment and plan: Patient had an episode of coffee-ground emesis which prompted EGD with gastric ulcer that was oozing treated. Hgb up to 9.9. Dark stools maybe old blood. Will monitor. Continue PPI. Qualifiers: Anemia type: due to chronic kidney disease Chronic kidney disease stage: on chronic dialysis Qualified Code(s): N18.6 - End stage renal disease; D63.1 - Anemia in chronic kidney disease; D63.1 - Anemia in chronic kidney disease; Z99.2 - Dependence on renal dialysis; Z99.2 - Dependence on renal dialysis; Z99.2 - Dependence on renal dialysis; Z99.2 - Dependence on renal dialysis (3) Acute on chronic respiratory failure with hypoxia Current Visit: Yes Status: Acute Assessment and plan: secondary to acute COPD exacerbation complicated by bacterial and human metapneumovirus pna. Patient was extubated on 11/13. Switch to oral prednisone. Continue nebs. Continue O2 support. Continue Zosyn day 8. (4) HCAP (healthcare-associated pneumonia) Current Visit: No Status: Acute Assessment and plan: plan as listed above (5) COPD exacerbation Current Visit: Yes Status: Acute Assessment and plan: as listed above (6) Hypertension Current Visit: No Status: Chronic Assessment and plan: Blood pressure stable. Continue current meds. Qualifiers: Hypertension type: essential hypertension Qualified Code(s): I10 - Essential (primary) hypertension (7) Hypothyroidism Current Visit: No Status: Chronic Assessment and plan: continue home dose of levothyroxine Qualifiers: Hypothyroidism type: acquired Qualified Code(s): E03.9 - Hypothyroidism, unspecified (8) ESRD (end stage renal disease) on dialysis Current Visit: Yes Status: Chronic Assessment and plan: nephrology evaluation appreciated continue HD (MWF) (9) CAD (coronary artery disease) Current Visit: No Status: Chronic Assessment and plan: no signs of angina continue home meds Qualifiers: Coronary Disease-Associated Artery/Lesion type: unspecified vessel or lesion type [place] vs. transplanted heart: unspecified whether [place] or transplanted heart Associated angina: angina presence unspecified Qualified Code(s): I25.10 - Atherosclerotic heart disease of [place] coronary artery without angina pectoris (10) DVT prophylaxis Current Visit: Yes Status: Acute Assessment and plan: SCD - Time Spent With Patient Total time spent is greater than 50% in coordination of care (as documented) at patient's floor/unit and/or counseling patient: - Subjective Interval history: Patient was seen and examined. s/p EGD yesterday with oozing gastric ulcer noted that was treated then. Had a dark stool this morning. Currently on 2 L. Patient was admitted initially to the ICU and is status post extubation and is being treated for pneumonia. - Constitutional Vitals: Temp Pulse Resp BP Pulse Ox 98.2 F 105 19 164/82 96 11/18/17 07:54 11/18/17 07:54 11/18/17 07:54 11/18/17 07:54 11/18/17 07:54 General appearance: Present: A&O X 3 (frail), pleasant, no acute distress Exam: GEN: NAD CVS: RRR. S1, S2, No m/r/g RESP: Diminished. ABD: Soft, NT, ND, +BS EXT: No edema. 2+ DP, No rashes NEURO: Nonfocal Internal Medicine: Result - Labs CBC & Chem 7: 11/18/17 05:26 11/18/17 05:26 Labs: Short CBC 11/18/17 Range/Units 05:26 WBC 21.9 H (4.3-11.1) K/mcL Hgb 9.9 L (11.5-15.4) g/dL Hct 30.9 L (35.3-44.9) % Plt Count 153 (140-400) K/mcL Neutrophils # 16.4 H (1.6-8.9) K/mcL BMP 11/18/17 05:26 Sodium 137 Potassium 3.9 Chloride 95 L Carbon Dioxide 29 BUN 44 H Creatinine 3.59 H Glucose 102 Calcium 9.6 - ABG Interpretation ABG results: ABG ABG pH 7.32 pH Units (7.32-7.45) 11/13/17 05:12 ABG pCO2 55 mmHg (35-45) H 11/13/17 05:12 ABG pO2 70 mmHg (85-104) L 11/13/17 05:12 ABG O2 Saturation 92 % (95-98) L 11/13/17 05:12 PT/INR, D-dimer D-Dimer 2242 ng/mLFEU (0-500) H 11/11/17 20:37 - VTE Documentation of Mechanical Device: Intermittent pneumatic compression device Consult Discharge Plan - Plan Referrals: Yonatan Aleman DO [Primary Care Provider] - 11/20/17 9:30 am ()
[2017-11-18] MEDS: *HR* LORazepam 2 MG/ML VIAL IVP PRN (18:03)
--- NOTE | 2017-11-18 20:37 | Anesthesia Evaluation Post Op ---
Date of Encounter: 11/18/17 Time of Encounter: 20:36 - Vital Signs Vital Signs: Vital Signs/O2 Sat, Most Current Temp Pulse Resp BP Pulse Ox 98.4 F 97 20 143/73 95 11/18/17 19:26 11/18/17 19:26 11/18/17 19:52 11/18/17 19:26 11/18/17 19:52 - Lungs Lungs: Clear Ascult./Percussion - Airway Airway: Non-obstructed - Cardiovascular Regular Rate - Mental Status Mental Status: Baseline Status - Nausea Vomiting Nausea Vomiting: Not Present - Discharge PostOp Status: Transfer Patient to floor Attestation: I have assessed this patient and find they meet discharge criteria.
[2017-11-19] MEDS: Pantoprazole 40 MG VIAL IVP SCH ×2 (01:14→12:27)
[2017-11-19] MEDS: Ipratropium/Albuterol Neb 3 ML IH SCH ×6 (03:29→23:59)
[2017-11-19 05:16] LABS: Hematocrit 27.8 % (35.3-44.9); Hemoglobin 8.9 g/dL (11.5-15.4); Mean Corpuscular Volume 96.9 fL (83.0-100.0); Mean Platelet Volume 10.1 fL (9.4-12.4); Nucleated Red Blood Cells 0.3 /100 WBC (0); Platelet Count 122 K/mcL (140-400); Red Blood Count 2.87 M/mcL (3.82-4.97)
[2017-11-19 05:34] LABS: Calcium 9.1 mg/dL (8.6-10.3); Magnesium 1.9 mg/dL (1.6-2.6)
[2017-11-19 05:43] LABS: Lymphocytes # 2.5 K/mcL (0.6-4.6); Neutrophils # 17.6 K/mcL (1.6-8.9); Reactive Lymphocytes Present (Not Present)
[2017-11-19 05:44] LABS: Anisocytosis 1+ (Not Present); Platelet Estimate Normal (Normal); Polychromasia 1+ (Not Present)
[2017-11-19] MEDS: Piperacillin/Tazobactam 3.375 GM in 0.9 % Sodium Chloride Mini Bag 100 ML IVPB SCH (06:16)
[2017-11-19] MEDS: Budesonide/Formoterol 80/4.5 MDI IH SCH ×2 (07:49→20:10)
[2017-11-19] MEDS: NIFEdipine XL (24 HR) 30 MG TAB.ER.24 PO SCH (08:54)
[2017-11-19] MEDS: predniSONE 20 MG TABLET PO SCH (08:54)
[2017-11-19] MEDS: Aspirin 81 MG TAB.CHEW PO SCH (08:54)
[2017-11-19] MEDS: Nicotine 14 MG PATCH.TD24 TD SCH (08:58)
[2017-11-19] MEDS ORDERED: levoFLOXacin 500 MG TABLET PO SCH (10:45)
--- NOTE | 2017-11-19 10:47 | Internal Med Progress Note ---
Date of Encounter: 11/19/17 Time of Encounter: 10:44 - Assessment and plan (1) Leukocytosis Current Visit: Yes Status: Acute Assessment and plan: Blasts noted 11/17. . Myelocytes noted 11/18. Metamyelocytes also noted. Heme/onc following and sent for peripher smear and cytometry. WBC elevated but patient is on steroids. Qualifiers: Leukocytosis type: unspecified Qualified Code(s): D72.829 - Elevated white blood cell count, unspecified (2) Anemia Current Visit: Yes Status: Chronic Assessment and plan: Patient had an episode of coffee-ground emesis which prompted EGD with gastric ulcer that was oozing treated. Hgb is 8.9. Will check tomorrow. Dark stools maybe old blood. Will monitor. Continue PPI. Qualifiers: Anemia type: due to chronic kidney disease Chronic kidney disease stage: on chronic dialysis Qualified Code(s): N18.6 - End stage renal disease; D63.1 - Anemia in chronic kidney disease; D63.1 - Anemia in chronic kidney disease; Z99.2 - Dependence on renal dialysis; Z99.2 - Dependence on renal dialysis; Z99.2 - Dependence on renal dialysis; Z99.2 - Dependence on renal dialysis (3) Acute on chronic respiratory failure with hypoxia Current Visit: Yes Status: Acute Assessment and plan: secondary to acute COPD exacerbation complicated by bacterial and human metapneumovirus pna. Patient was extubated on 11/13. Switched to oral prednisone 11/18. Will decrease to 30 mg daily tomorrow. Continue nebs. Continue O2 support. Stop zosyn and place on oral cefdinir. Total treatment will be 10 days. (4) HCAP (healthcare-associated pneumonia) Current Visit: No Status: Acute Assessment and plan: plan as listed above (5) COPD exacerbation Current Visit: Yes Status: Acute Assessment and plan: as listed above (6) Hypertension Current Visit: No Status: Chronic Assessment and plan: Blood pressure stable. Continue current meds. Qualifiers: Hypertension type: essential hypertension Qualified Code(s): I10 - Essential (primary) hypertension (7) Hypothyroidism Current Visit: No Status: Chronic Assessment and plan: continue home dose of levothyroxine Qualifiers: Hypothyroidism type: acquired Qualified Code(s): E03.9 - Hypothyroidism, unspecified (8) ESRD (end stage renal disease) on dialysis Current Visit: Yes Status: Chronic Assessment and plan: nephrology evaluation appreciated continue HD (MWF) (9) CAD (coronary artery disease) Current Visit: No Status: Chronic Assessment and plan: no signs of angina continue home meds Qualifiers: Coronary Disease-Associated Artery/Lesion type: unspecified vessel or lesion type [place] vs. transplanted heart: unspecified whether [place] or transplanted heart Associated angina: angina presence unspecified Qualified Code(s): I25.10 - Atherosclerotic heart disease of [place] coronary artery without angina pectoris (10) DVT prophylaxis Current Visit: Yes Status: Acute Assessment and plan: SCD (11) Grief Current Visit: Yes Status: Acute Assessment and plan: Patient feels down and depressed. I offered her condolences for her loss. I offered a psychiatric to see her as there was a mention somewhere from nurses about a suicide pact that she has with her . I specifically asked her in the presence of her nurse Tiffanie and the patient did not express this. No need for psych to see. - Time Spent With Patient Total time spent is greater than 50% in coordination of care (as documented) at patient's floor/unit and/or counseling patient: - Subjective Interval history: Patient was seen and examined. Patient is feeling down and yesterday had her in the ICU. Someone mentioned that the patient had mentioned previously a suicide pact with her . She is feeling down. Not suicidal. s/p EGD yesterday with oozing gastric ulcer noted that was treated then. Had a dark stool this morning. Currently on 2 L. Patient was admitted initially to the ICU and is status post extubation and is being treated for pneumonia. - Constitutional Vitals: Temp Pulse Resp BP Pulse Ox 97.9 F 82 16 111/61 96 11/19/17 07:29 11/19/17 10:40 11/19/17 10:40 11/19/17 10:40 11/19/17 10:40 General appearance: Present: A&O X 3 (frail), pleasant, no acute distress Exam: GEN: NAD CVS: RRR. S1, S2, No m/r/g RESP: Diminished. ABD: Soft, NT, ND, +BS EXT: No edema. 2+ DP, No rashes NEURO: Nonfocal Internal Medicine: Result - Labs CBC & Chem 7: 11/19/17 04:47 04/15/18 04:47 Labs: Short CBC 11/19/17 Range/Units 04:47 WBC 20.5 H (4.3-11.1) K/mcL Hgb 8.9 L (11.5-15.4) g/dL Hct 27.8 L (35.3-44.9) % Plt Count 122 L (140-400) K/mcL Neutrophils # 17.6 H (1.6-8.9) K/mcL BMP 11/19/17 04:47 Sodium 136 Potassium 4.0 Chloride 93 L Carbon Dioxide 29 BUN 59 H Creatinine 5.12 H Glucose 83 Calcium 9.1 - ABG Interpretation ABG results: ABG ABG pH 7.32 pH Units (7.32-7.45) 11/13/17 05:12 ABG pCO2 55 mmHg (35-45) H 11/13/17 05:12 ABG pO2 70 mmHg (85-104) L 11/13/17 05:12 ABG O2 Saturation 92 % (95-98) L 11/13/17 05:12 PT/INR, D-dimer D-Dimer 2242 ng/mLFEU (0-500) H 11/11/17 20:37 - VTE Documentation of Mechanical Device: Intermittent pneumatic compression device Consult Discharge Plan - Plan Referrals: Yonatan Aleman DO [Primary Care Provider] - 11/20/17 9:30 am ()
[2017-11-19] MEDS: *HR* OxyCODONE Immed Rel 5 MG TABLET PO PRN ×3 (10:51→23:08)
[2017-11-19] MEDS: Cefdinir 300 MG CAPSULE PO SCH (12:28)
[2017-11-20] MEDS: Ipratropium/Albuterol Neb 3 ML IH SCH ×4 (03:15→16:23)
[2017-11-20 04:10] LABS: Hematocrit 26.3 % (35.3-44.9); Hemoglobin 8.4 g/dL (11.5-15.4); Mean Corpuscular HGB Conc 31.9 g/dL (31.6-35.5); Mean Corpuscular Hemoglobin 31.1 pg (28.0-33.3); Mean Corpuscular Volume 97.4 fL (83.0-100.0); Mean Platelet Volume 10.4 fL (9.4-12.4); Nucleated Red Blood Cells 0.3 /100 WBC (0); Platelet Count 116 K/mcL (140-400); Red Cell Distribution Width 15.5 % (11.5-14.5)
[2017-11-20] MEDS ORDERED: Pantoprazole 40 MG VIAL IVP SCH ×2 (04:15→18:00)
[2017-11-20 04:28] LABS: Lymphocytes # 0.8 K/mcL (0.6-4.6); Monocytes # 1.7 K/mcL (0.0-1.3); Neutrophils # 18.2 K/mcL (1.6-8.9)
[2017-11-20 04:29] LABS: Anisocytosis 1+ (Not Present); Hypochromasia Present (Not Present); Macrocytosis Present (Not Present); Platelet Estimate Slight Decrease (Normal); Polychromasia 1+ (Not Present); Reactive Lymphocytes Present (Not Present); Toxic Granulation Present (Not Present)
[2017-11-20 04:32] LABS: Calcium 8.7 mg/dL (8.6-10.3); Potassium 4.8 mEq/L (3.5-5.1)
[2017-11-20] MEDS: *HR* LORazepam 2 MG/ML VIAL IVP PRN (06:39)
[2017-11-20] MEDS: Budesonide/Formoterol 80/4.5 MDI IH SCH (07:32)
[2017-11-20] MEDS ORDERED: 0.9 % Sodium Chloride 250 ML IVC PRN (08:28)
--- NOTE | 2017-11-20 08:28 | Nephrology Progress Note ---
Date of Encounter: 11/20/17 Time of Encounter: 08:27 - Assessment and Plan (1) End stage renal disease Current Visit: No Status: Chronic Patient will undergo dialysis today. Her vital signs are stable. She continues on Aranesp for her anemia. (2) Acute respiratory failure Current Visit: No Status: Acute Qualifiers: Respiratory failure complication: unspecified whether with hypoxia or hypercapnia Qualified Code(s): J96.00 - Acute respiratory failure, unspecified whether with hypoxia or hypercapnia (3) Anemia, chronic renal failure Current Visit: No Status: Acute Qualifiers: Chronic kidney disease stage: stage 5 Qualified Code(s): N18.5 - Chronic kidney disease, stage 5; D63.1 - Anemia in chronic kidney disease (4) Acute exacerbation of chronic obstructive airways disease Current Visit: No Status: Acute Subjective Principal diagnosis: Acute on chronic respiratory failure with hypoxia Interval history: Patient reports no new complaints. She is scheduled for usual dialysis today. White count is about the same today as yesterday. Hemoglobin is 8.4. Objective - Vital Signs Vital signs: Vital Signs Temp Pulse Resp BP Pulse Ox 11/20/17 06:57 98.2 F 88 20 97 11/20/17 05:23 98.6 F 86 18 115/65 98 11/19/17 23:59 17 100 11/19/17 23:35 98.5 F 82 18 120/69 98 11/19/17 20:11 16 99 11/19/17 18:46 97.7 F 88 18 101/57 94 11/19/17 15:42 98.7 F 87 16 122/58 91 11/19/17 15:16 18 95 11/19/17 11:54 18 96 11/19/17 10:40 82 16 111/61 96 Intake and Output 11/19/17 11/20/17 11/20/17 23:59 07:59 15:59 Intake Total 800 / 800 Output Total 0 / 0 Balance 800 / 800 Intake: Oral 800 / 800 Output: Urine 0 / 0 Other: Meal 1 vanilla pudding cup Percent of Meal Consumed 100% Weight 55.3 kg Patient Weight 11/20/17 23:59 Weight 55.3 kg - General Appearance Exam: Patient is in no acute distress. Lungs diminished breath sounds otherwise clear. Heart regular rate and rhythm. Abdomen is benign. There is no peripheral edema. There is a functioning AV fistula in the left upper extremity. - Lab 11/20/17 03:53 11/20/17 03:53 Most recent lab results ABG pH 7.32 pH Units (7.32-7.45) 11/13/17 05:12 ABG pCO2 55 mmHg (35-45) H 11/13/17 05:12 ABG pO2 70 mmHg (85-104) L 11/13/17 05:12 ABG HCO3 28 mEq/L (21-27) H 11/13/17 05:12 ABG O2 Saturation 92 % (95-98) L 11/13/17 05:12 Calcium 8.7 mg/dL (8.6-10.3) 11/20/17 03:53 Phosphorus 4.6 mg/dL (2.7-4.5) H 11/17/17 05:22 Magnesium 1.9 mg/dL (1.6-2.6) 11/19/17 04:47 - VTE Documentation of Mechanical Device: Intermittent pneumatic compression device Consult Discharge Plan - Plan Referrals: Yonatan Aleman DO [Primary Care Provider] - 11/20/17 9:30 am ()
[2017-11-20] MEDS ORDERED: predniSONE 10 MG TABLET PO SCH (09:00)
[2017-11-20] MEDS: Cefdinir 300 MG CAPSULE PO SCH (09:24)
[2017-11-20] MEDS: NIFEdipine XL (24 HR) 30 MG TAB.ER.24 PO SCH (09:25)
[2017-11-20] MEDS: Aspirin 81 MG TAB.CHEW PO SCH (09:25)
[2017-11-20] MEDS: predniSONE 20 MG TABLET PO SCH (09:26)
[2017-11-20] MEDS: Darbepoetin 100 MCG/0.5 ML SYRINGE SQ SCH (09:28)
[2017-11-20] MEDS: Nicotine 14 MG PATCH.TD24 TD SCH (09:29)
[2017-11-20] MEDS: Pantoprazole 40 MG VIAL IVP SCH (10:17)
--- NOTE | 2017-11-20 10:52 | Discharge Summary ---
- NOTES TO OUTPATIENT PROVIDER Notes to Outpatient Provider: Patient's while she was hospitalized. Both were actually hospitalized at the same time. She had an oozing gastric ulcer that was treated while here. Her hemoglobin remained stable for 2 days after that but was slowly dropping. I am discharging the patient as the family wants to start arrangements. She is discharged and is to have repeat CBC on Tuesday 11/21. Aspirin was stopped at discharge. Orders not resulted at time of discharge: Pending orders 11/15/17 04:00 ABG [Arterial [place]] [place] 39911/16/17 12:15 Fecal Hemoccult [Occult Blood,Stool] [BF] Routine 11/20/17 03:53 Blood Smear to Oncology [HEME] Routine [place] Blood [place] [[place]] [place] 39911/20/17 04:35 Peripheral Bld Flow-[facility] Routine Date of Encounter: 11/20/17 Time of Encounter: 10:47 - Discharge Diagnosis (1) Leukocytosis Priority: Primary Status: Acute Qualifiers: Leukocytosis type: unspecified Qualified Code(s): D72.829 - Elevated white blood cell count, unspecified (2) Anemia Priority: Primary Status: Chronic Qualifiers: Anemia type: due to chronic kidney disease Chronic kidney disease stage: on chronic dialysis Qualified Code(s): N18.6 - End stage renal disease; D63.1 - Anemia in chronic kidney disease; D63.1 - Anemia in chronic kidney disease; Z99.2 - Dependence on renal dialysis; Z99.2 - Dependence on renal dialysis; Z99.2 - Dependence on renal dialysis; Z99.2 - Dependence on renal dialysis (3) Acute on chronic respiratory failure with hypoxia Priority: Primary Status: Acute (4) HCAP (healthcare-associated pneumonia) Priority: Primary Status: Acute (5) COPD exacerbation Priority: Primary Status: Acute (6) Hypertension Priority: Secondary Status: Chronic Qualifiers: Hypertension type: essential hypertension Qualified Code(s): I10 - Essential (primary) hypertension (7) Hypothyroidism Priority: Secondary Status: Chronic Qualifiers: Hypothyroidism type: acquired Qualified Code(s): E03.9 - Hypothyroidism, unspecified (8) ESRD (end stage renal disease) on dialysis Priority: Secondary Status: Chronic (9) CAD (coronary artery disease) Priority: Secondary Status: Chronic Qualifiers: Coronary Disease-Associated Artery/Lesion type: unspecified vessel or lesion type [place] vs. transplanted heart: unspecified whether [place] or transplanted heart Associated angina: angina presence unspecified Qualified Code(s): I25.10 - Atherosclerotic heart disease of [place] coronary artery without angina pectoris (10) Grief Priority: Primary Status: Acute Hospital course: Ms. Orellana is a 67 year old female with past medical history of COPD, end-stage renal disease on Monday dialysis, retention, CAD status post CABG presented to emergency room with complaint of hypoxia. She was visiting her who ws in the ICU when family and staff noticed that she was acting strangely. Family reported this has been happening for the past 2 days. Pulse oximeter was placed and patient had an oxygen saturation in the 70s. She was sent to the emergency room for further evaluation. Upon presentation to the emergency room, vital signs were significant for a heart rate of 100, auction saturation of 74% and she was subsequently placed on BiPAP. Laboratory results were significant for an ABG showing respiratory acidosis with a pH of 7.25, CO2 of 73. D-dimer was elevated at 2242 and subsequent CTA showed no evidence of pulmonary embolism but did show multifocal airspace disease in all 5 lobes susicious for aspiration. Troponin was mildly elevated at 0.05, BNP of 969, BUN/ creatinine of 24/3.50 which is consistent with her baseline. Family also reported that patient missed dialysis on Monday but did go today. The patient became more somnolent and ended up intubated the night of her admission. She was treated for COPD exacerbaion and pneumonia. Was put on IV steroids, nebs, broad spectrum abx and finished 10 days total of abx. Echo showed EF 65%, mild diastolic dysfunction. She was eventually extubated and transferred to the floors. She was noted to have a drop in H/H compared to hemoglobin back in August. She was in the 10-11 range back then and has been in the 8-10 here. She had a couple of coffee ground emesis and GI were consulted. EGD showed oozing gastric ulcer that was injected and clipped. She had no further coffee ground emesis after. Steroids were switched to oral and we started tapering. She was noted to have blasts on her differential and we consulted hematology who sent for peripheral smear and cytology and will follow the patient in the outpatient clinic She was resumed on HD per nephrology while here. While hospitalized, the patient's passed in the ICU. The patient went to see her after he passed. Family wanted to start making arrangements and asked if the patient can be discharged. The patient was discharged 2 days after her 's in a stable condition. I did give the patient a slip to have a repeat CBC on 11/23 as her hemoglobin was still dropping a little with no signs of active hematemesis, hematochezia, or melena. Hgb was 8.4 on discharge. - Time Spent with Patient Total time spent providing and/or coordinating discharge services: Greater than 30 minutes - Discharge Medications Prescriptions: predniSONE [PredniSONE] See Taper PO TAPER #9 tablet Home Medications: Albuterol Sulfate [Albuterol Inhaler] 2 puff IH Q4H PRN 06/02/15 [History] Atorvastatin [Lipitor] 40 mg PO HS 06/02/15 [History] Citalopram Hydrobromide [Citalopram HBr] 20 mg PO QAM 06/02/15 [History] Levothyroxine [Synthroid] 200 mcg PO QAM 06/02/15 [History] Metoprolol Tartrate 12.5 mg PO BID 06/02/15 [History] Omeprazole 40 mg PO QAM 06/02/15 [History] OxyCODONE Immed Rel [Roxicodone 10 MG] 10 mg PO Q6H PRN 06/02/15 [History] Docusate [Colace] 100 mg PO BID PRN 09/22/15 [History] B Complex with Vitamin C [Mary [place]ee with C] 1 tab PO DAILY 02/22/16 [History] Sevelamer [Renvela] 800 mg PO TIDWM 08/29/16 [History] Fluticasone/Salmeterol [Advair Hfa 115-21 Mcg Inhaler] 2 puff IH BID 11/14/16 [ History] Ipratropium/Albuterol Neb [Duoneb] 3 ml IH QID PRN 11/14/16 [History] Renal Vitamin [Renal Caps Softgel] 1 mg PO DAILY 11/14/16 [History] Umeclidinium [place] [Incruse Ellipta] 62.5 mcg IH DAILY 11/12/17 [History] predniSONE [PredniSONE] See Taper PO TAPER #9 tablet 11/20/17 [Rx] Allergies/Adverse Reactions: 3 Allergy/AdvReac Type Severity Reaction Status Date / Time ceftriaxone [From Rocephin] Allergy Hives Verified 11/11/17 20:19 levofloxacin [From Levaquin] Allergy Hives Verified 11/11/17 20:19 Date of admission: 11/12/17 04:44 Primary care physician: Yonatan Aleman, Consults: 11/12/17 05:09 Consult to Pulmonology [CONS] Routine Consulting Provider: Pulm [facility] Reason for Consult: vent management, COPD Call Completed: No 11/13/17 08:30 Consult to Dialysis [CONS] ONCE 11/15/17 08:15 Consult to Dialysis [CONS] ONCE 11/16/17 13:04 Consult to Gastroenterology [CONS] Routine Consulting Provider: Gastroenterology [place] Reason for Consult: coffee ground emesis Call Completed: Yes 11/17/17 09:30 Consult to Dialysis [CONS] ONCE 11/17/17 11:18 Consult to Occupational Therapy [CONS] Routine Comment: Evaluate, develop and implement POC Reason for Consult: therapy/placement needs Does patient have active BEDREST order?: No Is patient medically & hemodynamically stable?: Yes Consult to Physical Therapy [CONS] Routine Comment: Evaluate, develop and implement POC Reason for Consult: PT eval Does patient have active BEDREST order?: No Is patient medically & hemodynamically stable?: Yes 11/17/17 11:23 Consult to Oncology Hematology [CONS] Routine Consulting Provider: Laureen Armenta Reason for Consult: blasts/leukocytosis Call Completed: Yes 11/20/17 08:30 Consult to Dialysis [CONS] ONCE - Constitutional Vitals: Temp Pulse Resp BP Pulse Ox 98.2 F 88 20 115/65 97 11/20/17 06:57 11/20/17 06:57 11/20/17 06:57 11/20/17 05:23 11/20/17 06:57 General appearance: Present: A&O X 3 (frail), pleasant, no acute distress Exam: GEN: NAD CVS: RRR. S1, S2, No m/r/g RESP: Diminished. ABD: Soft, NT, ND, +BS EXT: No edema. 2+ DP, No rashes NEURO: Nonfocal - Patient Status Disposition: Home, Self-Care Condition: Good Overall status at discharge: patient is progressing back to baseline - Ambulatory Orders Ambulatory Orders: Complete Blood Count [HEME] Time Frame: 12/01/17, Facility: [facility], Location: Lab - Discharge Instructions Follow Up With: Yonatan Aleman DO [Primary Care Provider] - 11/20/17 9:30 am () Laureen Armenta MD [Partnered Physician] - (1-2 weeks) - Diet and Activity Activity: increase activity as tolerated Diet: low salt diet - VTE Documentation of Mechanical Device: Intermittent pneumatic compression device
--- NOTE | 2017-11-20 11:49 | Oncology Inp Progress Note ---
Date of Encounter: 11/20/17 Time of Encounter: 11:00 (1) Leukocytosis Current Visit: Yes Status: Acute Assessment and plan: 1% blasts noted with CBC, further assessment of blood smear needed for confirmation. Leukocytosis appears to be acute during hospitalization in trending labs following ICU admission, infection with human metapneumovirus. Anemia of chronic disease noted. Mild thrombocytopenia now newly noted over weekend, may be secondary to severe infection. Peripheral blood flow-pending Peripheral blood smear from Monday with path review-pending. Ordered blood smear prep today for Dr. Cole to review slide for further analysis of blasts. Attempted to discuss plan with patient, she is quite drowsy, plan discussed with patients nurse to reinforce with patient at discharge. She has a follow up scheduled with Dr. Fitch, recommend continued lab monitoring *Update* Discussed peripheral smear with pathology- no blasts identified on smear, identified metamyelocytes. Qualifiers: Leukocytosis type: unspecified Qualified Code(s): D72.829 - Elevated white blood cell count, unspecified (2) Anemia in chronic kidney disease Current Visit: No Status: Chronic Assessment and plan: Chronic in nature secondary to anemia of chronic disease, CKD. She had an episode of coffee ground emesis last week. S/P EGD with oozing gastric ulcer with clot, clip placed and area injected. She receives Aranesp per nephrology, dose received today. Continued lab monitoring recommended on outpatient basis, labs with dialysis Qualifiers: Chronic kidney disease stage: unspecified stage Qualified Code(s): N18.9 - Chronic kidney disease, unspecified; D63.1 - Anemia in chronic kidney disease; D63.1 - Anemia in chronic kidney disease Oncology: Subj Interval history: Ms. Orellana is drowsy, she will momentarily wake up when spoken to, however, quickly falls back to sleep again. Nurse aware, patient recently received Ativan this morning. Pulse ox and pulse rate stable per monitor in room. Asked nurse to call if she has any further questions or concerns when patient becomes more alert. Patient is planned for discharge today, her recently and arrangements are needing to be made. Nurse given appointment time and card to give to patient with discharge instructions. - Constitutional Vitals: Vital Signs Temp Pulse Resp BP Pulse Ox 11/20/17 06:57 98.2 F 88 20 97 11/20/17 05:23 98.6 F 86 18 115/65 98 11/19/17 23:59 17 100 11/19/17 23:35 98.5 F 82 18 120/69 98 11/19/17 20:11 16 99 11/19/17 18:46 97.7 F 88 18 101/57 94 11/19/17 15:42 98.7 F 87 16 122/58 91 11/19/17 15:16 18 95 11/19/17 11:54 18 96 Intake and Output 11/19/17 11/20/17 11/20/17 23:59 07:59 15:59 Intake Total 800 / 800 480 / 480 Output Total 0 / 0 Balance 800 / 800 480 / 480 Intake: Oral 800 / 800 480 / 480 Output: Urine 0 / 0 Other: Meal 1 vanilla pudding cup Breakfast Percent of Meal Consumed 100% 85% Weight 55.3 kg Patient Weight 11/20/17 23:59 Weight 55.3 kg General appearance: no acute distress, no febrile Exam: lethargic but arouses to voice - Head Head exam: Present: atraumatic - ENT ENT exam: Present: mucous membranes dry - Respiratory Respiratory exam: Present: decreased breath sounds, CTAB. Absent: respiratory distress - Cardiovascular Cardiovascular exam: Present: RRR, +S1, +S2 - Neurological Exam Additional comments: as noted above, lethargic but arouses to voice however, quickly falls back to sleep - Psychiatric Psychiatric exam: Present: flat affect - Skin Skin exam: Present: dry, intact, normal color, warm Oncology: Obj Data - Labs CBC & Chem 7: 11/20/17 03:53 11/20/17 03:53 Labs: Laboratory Results - last 24 hr 11/20/17 11/20/17 03:53 03:53 WBC 20.7 H RBC 2.70 L Hgb 8.4 L Hct 26.3 L MCV 97.4 MCH 31.1 MCHC 31.9 RDW 15.5 H Plt Count 116 L MPV 10.4 Seg Neutrophils % 86.0 Band Neutrophils % 2.0 Lymphocytes % 4.0 Monocytes % 8.0 Neutrophils # 18.2 H Lymphocytes # 0.8 Monocytes # 1.7 H Nucleated RBCs/100 WBC 0.3 H Reactive Lymphocytes Present A Toxic Granulation Present A Platelet Estimate Slight Decrease L Polychromasia 1+ A Hypochromasia Present A Anisocytosis 1+ A Macrocytosis Present A Sodium 135 L Potassium 4.8 Chloride 96 L Carbon Dioxide 28 BUN 76 H Creatinine 6.51 H Est GFR ( Amer) 8 L Est GFR (Non-Af Amer) 6 L BUN/Creatinine Ratio 12 Glucose 93 Calculated Osmolality 302 H Calcium 8.7 - ABG Interpretation ABG results: ABG ABG pH 7.32 pH Units (7.32-7.45) 11/13/17 05:12 ABG pCO2 55 mmHg (35-45) H 11/13/17 05:12 ABG pO2 70 mmHg (85-104) L 11/13/17 05:12 ABG O2 Saturation 92 % (95-98) L 11/13/17 05:12 PT/INR, D-dimer D-Dimer 2242 ng/mLFEU (0-500) H 11/11/17 20:37 Consult Discharge Plan - Plan Referrals: Yonatan Aleman DO [Primary Care Provider] - 11/20/17 9:30 am () Laureen Armenta MD [Partnered Physician] - (1-2 weeks) Prescriptions: predniSONE [PredniSONE] See Taper PO TAPER #9 tablet
[2017-11-20] MEDS ORDERED: 0.9 % Sodium Chloride 2,000 ML ONE (14:35)
--- NOTE | 2017-11-20 14:47 | Physician Discharge Referral ---
Home Health/Hosp Referral Info Transfer to: Home Health - Diagnosis (1) Leukocytosis Priority: Primary Status: Acute (2) Anemia Priority: Primary Status: Chronic (3) Acute on chronic respiratory failure with hypoxia Priority: Primary Status: Acute (4) HCAP (healthcare-associated pneumonia) Priority: Primary Status: Acute (5) COPD exacerbation Priority: Primary Status: Acute (6) Hypertension Priority: Secondary Status: Chronic (7) Hypothyroidism Priority: Secondary Status: Chronic (8) ESRD (end stage renal disease) on dialysis Priority: Secondary Status: Chronic (9) CAD (coronary artery disease) Priority: Secondary Status: Chronic (10) Grief Priority: Primary Status: Acute - Respiratory Orders Smoking Cessation: Smoking cessation has been advised. For more information, call the [employer] Tobacco Quit Line at 6-724-KIBZ-NOW. - Services Needed Following services are medically necessary services: Nursing, Home Health Aide, Physical Therapy, Occupational Therapy - Transfer Medications Prescriptions: predniSONE [PredniSONE] See Taper PO TAPER #9 tablet Home Medications: Albuterol Sulfate [Albuterol Inhaler] 2 puff IH Q4H PRN 06/02/15 [History] Atorvastatin [Lipitor] 40 mg PO HS 06/02/15 [History] Citalopram Hydrobromide [Citalopram HBr] 20 mg PO QAM 06/02/15 [History] Levothyroxine [Synthroid] 200 mcg PO QAM 06/02/15 [History] Metoprolol Tartrate 12.5 mg PO BID 06/02/15 [History] Omeprazole 40 mg PO QAM 06/02/15 [History] OxyCODONE Immed Rel [Roxicodone 10 MG] 10 mg PO Q6H PRN 06/02/15 [History] Docusate [Colace] 100 mg PO BID PRN 09/22/15 [History] B Complex with Vitamin C [[place] with C] 1 tab PO DAILY 02/22/16 [History] Sevelamer [Renvela] 800 mg PO TIDWM 08/29/16 [History] Fluticasone/Salmeterol [Advair Hfa 115-21 Mcg Inhaler] 2 puff IH BID 11/14/16 [ History] Ipratropium/Albuterol Neb [Duoneb] 3 ml IH QID PRN 11/14/16 [History] Renal Vitamin [Renal Caps Softgel] 1 mg PO DAILY 11/14/16 [History] Umeclidinium [place] [Incruse Ellipta] 62.5 mcg IH DAILY 11/12/17 [History] predniSONE [PredniSONE] See Taper PO TAPER #9 tablet 11/20/17 [Rx] Allergies/Adverse Reactions: 3 Allergy/AdvReac Type Severity Reaction Status Date / Time ceftriaxone [From Rocephin] Allergy Hives Verified 11/11/17 20:19 levofloxacin [From Levaquin] Allergy Hives Verified 11/11/17 20:19 Certification: Further, I certify that my clinical findings support that this patient is homebound (i.e. absences from home require considerable and taxing effort and are for medical reasons or [employer] services or infrequently or short duration when for other reasons) because: Homebound Reason: Patient requires assistance of a person or device to safely leave home Attestation: My signature below is to certify that this patient is under my care and that I, or nurse practitioner, or a physician's housekeeping assistant working with me, has a face-to -face encounter with this patient.
[2017-11-20 15:56] LABS: ABG Base Excess 11 mEq/L (-2 to 3); ABG HCO3 36 mEq/L (21-27); ABG Oxygen Saturation 95 % (95-98); ABG PCO2 50 mmHg (35-45); ABG PH 7.47 pH Units (7.32-7.45); ABG PO2 75 mmHg (85-104); ABG TCO2 37 mEq/L (20-26)
[2017-11-20] MEDS: *HR* OxyCODONE Immed Rel 5 MG TABLET PO PRN (17:59)
[2017-11-20 18:09] VITALS: BP 109/54
== END 2017-11-20 18:52 | disposition home or self-care (01) | DRG 208 ==
LOC: EMEROO 20:17 → ICNU 20:17 → SUATTDRO 11-12 04:44 → 2ANU 11-14 18:20
PROVIDERS: ADMIT Family Medicine; ATTEND Internal Medicine

== ENCOUNTER 2018-01-09 21:47 | Inpatient (IN) ==
--- NOTE | 2018-01-09 22:03 | Emergency Department Note ---
Disposition Clinical Impression: Hyperkalemia Disposition: Admitted As Inpatient Condition: Fair General Adult HPI - General Chief complaint: ED Shortness of Breath/Dyspnea Stated complaint: "Bronchitis" Time Seen by Provider: 01/09/18 21:58 - History of Present Illness Pain Scale: 8 - Related Data Home Medications Medication Instructions Recorded Confirmed Atorvastatin [Lipitor] 40 mg PO HS 06/02/15 01/10/18 Levothyroxine [Synthroid] 200 mcg PO QAM 06/02/15 01/10/18 OxyCODONE Immed Rel [Roxicodone 10 10 mg PO Q6H PRN 06/02/15 01/10/18 MG] Docusate [Colace] 100 mg PO BID PRN 09/22/15 01/10/18 B Complex with Vitamin C [[place] 1 tab PO DAILY 02/22/16 01/10/18 with C] Sevelamer [Renvela] 1,600 mg PO TIDWM 08/29/16 01/10/18 Fluticasone/Salmeterol [Advair Hfa 2 puff IH BID 11/14/16 01/10/18 115-21 Mcg Inhaler] Ipratropium/Albuterol Neb [Duoneb] 3 ml IH QID PRN 11/14/16 01/10/18 Renal Vitamin [Renal Caps Softgel] 1 mg PO DAILY 11/14/16 01/10/18 Umeclidinium [place] [Incruse 62.5 mcg IH DAILY 11/12/17 01/10/18 Ellipta] Albuterol Sulfate [Proair Hfa] 2 puff IH Q4-6H PRN 01/10/18 01/10/18 Citalopram Hydrobromide [Celexa] 20 mg PO DAILY 01/10/18 01/10/18 Folic Acid 1 mg PO DAILY 01/10/18 01/10/18 Metoprolol [Lopressor] 12.5 mg PO BID 01/10/18 01/10/18 Omeprazole [PriLOSEC] 40 mg PO DAILY 01/10/18 01/10/18 Allergies Allergy/AdvReac Type Severity Reaction Status Date / Time ceftriaxone [From Rocephin] Allergy Hives Verified 01/09/18 21:52 levofloxacin [From Levaquin] Allergy Hives Verified 01/09/18 21:52 Past Medical History - Past Medical History Medical history: Reports: arthritis, dialysis, hyperlipidemia, hypertension, renal disease, thyroid disease Surgical history: Reports: coronary bypass (CABG), other (Left arm dialysis shunt) Psychiatric history: Reports: anxiety, depression [employer] history: Reports: no [employer] history - Social History Smoking Status: Current every day smoker Smokeless Tobacco Status: No Alcohol use: Reports: none Drug use: Reports: none Course Vital Signs Temperature 97.6 F 01/09/18 21:49 Pulse Rate 96 01/09/18 21:49 Respiratory Rate 22 01/09/18 21:49 Blood Pressure 172/72 01/09/18 21:49 O2 Sat by Pulse Oximetry 89 01/09/18 21:49 Temperature 98.8 F 01/10/18 11:20 Pulse Rate 96 01/10/18 11:20 Respiratory Rate 18 01/10/18 11:20 Blood Pressure 142/58 01/10/18 11:20 O2 Sat by Pulse Oximetry 91 01/10/18 11:20 Oxygen Delivery Oxygen Delivery Nasal Cannula Medical Decision Making - Lab Data Result diagrams: 01/10/18 05:29 01/10/18 05:29 Lab Results 01/09/18 01/09/18 01/09/18 Range/Units 22:40 22:40 22:40 WBC 20.6 H (4.3-11.1) K/mcL RBC 3.19 L (3.82-4.97) M/mcL Hgb 10.7 L (11.5-15.4) g/dL Hct 33.4 L (35.3-44.9) % MCV 104.7 H (83.0-100.0) fL MCH 33.5 H (28.0-33.3) pg MCHC 32.0 (31.6-35.5) g/dL RDW 16.7 H (11.5-14.5) % Plt Count 48 L (140-400) K/mcL MPV 10.1 (9.4-12.4) fL Seg Neutrophils % 84.0 % Band Neutrophils % 6.0 H (0-4) % Lymphocytes % 6.0 % Monocytes % 4.0 % Neutrophils # 18.5 H (1.6-8.9) K/mcL Lymphocytes # 1.2 (0.6-4.6) K/mcL Monocytes # 0.8 (0.0-1.3) K/mcL Nucleated RBCs/100 WBC 0.5 H (0) /100 WBC Platelet Estimate Decreased L (Normal) Immature Plt Fraction 3.6 (1.1-6.1) % Sodium 136 (136-145) mEq/L Potassium 6.8 H* (3.5-5.1) mEq/L Chloride 97 L (98-107) mEq/L Carbon Dioxide 19 L (23-29) mEq/L BUN > 130 H (8-23) mg/dL Creatinine 11.01 H (0.60-1.20) mg/dL Est GFR ( Amer) 4 L (> 60) Est GFR (Non-Af Amer) 3 L (> 60) BUN/Creatinine Ratio TNP Glucose 147 H (70-105) mg/dL Calculated Osmolality TNP Calcium 8.8 (8.6-10.3) mg/dL Total Bilirubin 0.5 (0.3-1.0) mg/dL AST 25 (13-39) Units/L ALT 8 (7-52) Units/L Alkaline Phosphatase 116 H (34-104) Units/L Troponin I 0.25 H* (< 0.04) ng/mL Serum Total Protein 5.8 L (6.4-8.9) g/dL Albumin 3.6 (3.5-5.7) g/dL Globulin 2.2 L (2.4-3.5) g/dL Albumin/Globulin Ratio 1.6 (1.1-2.2) Critical Care Time Critical Care Time: Yes Total Critical Care Time: 30 Attestation: The high probability of a clinically significant, sudden or life threatening deterioration of the [] system(s) required my full and direct attention, intervention and personal management. The aggregate critical care time was [] minutes. This time is in addition to time spent performing reported procedures but includes the following: [] Data Review and interpretation [] Patient assessment and monitoring of vital signs [] Documentation [] Medication orders and management Attestation Statement - Attestation Attestation: I examined this patient and my medical decision-making was reviewed with the Resident Physician. I agree with the documented findings, disposition and treatment plan as described except to the extent set forth below. [id number] time provided Patient arrives complaining of cough and dyspnea. She has known history of oxygen-dependent COPD. She has recently missed her last 2 dialysis sessions. The patient was evaluated in conjunction with the resident physician Dr. Che
--- NOTE | 2018-01-09 22:35 | Emergency Department Note ---
Disposition Clinical Impression: Hyperkalemia Disposition: Admitted As Inpatient Condition: Fair Referrals: Yonatan Aleman DO [Primary Care Provider] - Forms: ED Satisfaction Letter General Adult HPI - General Chief complaint: ED Shortness of Breath/Dyspnea Stated complaint: Shortness of breath and swelling Time Seen by Provider: 01/09/18 21:58 Source: patient, family Mode of arrival: private vehicle Limitations: no limitations Nursing Notes Reviewed: Yes Vital Signs Reviewed: Yes - History of Present Illness HPI Narrative: Patient was seen and examined at bedside with her [id number] present in the room. She is here for shortness of breath and swelling that has been worsening over the past several days. They tell me that she has a history of kidney failure she thinks this is due to multiple kidney stones in the past, she normally gets dialysis on Mondays, Wednesdays, and Fridays with Dr. Calderón in [place] however she skipped her last 2 sessions and has developed some swelling in her legs, arms, and face along with some shortness of breath. She is a smoker, close to [id number] history and currently cut back to about 6 cigarettes daily Onset (ago): day(s) Location: face, upper extremity, lower extremity Pain Scale: 8 Associated symptoms: Reports: cough, shortness of breath. Denies: chest pain, fever/chills - Related Data Home Medications Medication Instructions Recorded Confirmed Albuterol Sulfate [Albuterol 2 puff IH Q4H PRN 06/02/15 11/12/17 Inhaler] Atorvastatin [Lipitor] 40 mg PO HS 06/02/15 11/12/17 Citalopram Hydrobromide 20 mg PO QAM 06/02/15 11/12/17 [Citalopram HBr] Levothyroxine [Synthroid] 200 mcg PO QAM 06/02/15 11/12/17 Metoprolol Tartrate 12.5 mg PO BID 06/02/15 11/12/17 Omeprazole 40 mg PO QAM 06/02/15 11/12/17 OxyCODONE Immed Rel [Roxicodone 10 10 mg PO Q6H PRN 06/02/15 11/12/17 MG] Docusate [Colace] 100 mg PO BID PRN 02/16/16 04/08/18 B Complex with Vitamin C [Mary Ann-Bee 1 tab PO DAILY 02/22/16 11/12/17 with C] Sevelamer [Renvela] 800 mg PO TIDWM 08/29/16 11/12/17 Fluticasone/Salmeterol [Advair Hfa 2 puff IH BID 11/14/16 11/12/17 115-21 Mcg Inhaler] Ipratropium/Albuterol Neb [Duoneb] 3 ml IH QID PRN 11/14/16 11/12/17 Renal Vitamin [Renal Caps Softgel] 1 mg PO DAILY 11/14/16 11/12/17 Umeclidinium [place] [Incruse 62.5 mcg IH DAILY 11/12/17 11/12/17 Ellipta] Previous Rx's Medication Instructions Recorded Nicotine Patch [Nicoderm] 21 mg TD DAILY #28 patch.td24 11/20/17 predniSONE [PredniSONE] See Taper PO TAPER #9 tablet 11/20/17 Allergies Allergy/AdvReac Type Severity Reaction Status Date / Time ceftriaxone [From Rocephin] Allergy Hives Verified 01/09/18 21:52 levofloxacin [From Levaquin] Allergy Hives Verified 01/09/18 21:52 All systems ED: reviewed and negative except as stated. Constitutional: Denies: fever, chills Cardiovascular: Reports: dyspnea on exertion, orthopnea, edema. Denies: chest pain, palpitations Respiratory: Reports: cough, dyspnea. Denies: sputum production Gastrointestinal: Denies: abdominal pain, nausea, vomiting, diarrhea Neurological: Denies: headache, weakness Past Medical History - Past Medical History Medical history: Reports: arthritis, dialysis, hyperlipidemia, hypertension, renal disease, thyroid disease Surgical history: Reports: coronary bypass (CABG), other (Left arm dialysis shunt) Psychiatric history: Reports: anxiety, depression [employer] history: Reports: no [employer] history - Social History Smoking Status: Current every day smoker Smokeless Tobacco Status: No Alcohol use: Reports: none Drug use: Reports: none Physical Exam l - General Limitations: no limitations General appearance: alert - Head Head exam: atraumatic, normocephalic - Eye Eye exam: Present: PERRL, EOMI - Respiratory Respiratory exam: Absent: respiratory distress - Expanded Respiratory Exam Location: wheezes: Left, Right, rales: Left, Right, decreased breath sounds: Left, Right - Cardiovascular Cardiovascular exam: Present: regular rate, normal rhythm (Right), normal heart sounds - Abdominal Exam Abdominal exam: Present: soft, Non-Tender (Was not). Absent: distention - Extremities Exam Extremities exam: Present: pedal edema Course - Reevaluation(s) Reevaluation #1: Potassium came back elevated at 6.8. Patient was given insulin, glucose, Kayexalate, and calcium. contacted the hospitalist Dr. Hodges who will accept the patient to hospitalist service. He insisted that we contact nephrology to advise of the patient's hyperkalemia and current clinical picture. Dr. Calderón was paged and is aware that the patient is being admitted. Plan for dialysis tomorrow AM Vital Signs Temperature 97.6 F 01/09/18 21:49 Pulse Rate 96 01/09/18 21:49 Respiratory Rate 22 01/09/18 21:49 Blood Pressure 172/72 01/09/18 21:49 O2 Sat by Pulse Oximetry 89 01/09/18 21:49 Temperature 97.6 F 01/09/18 21:49 Pulse Rate 93 01/09/18 23:22 Respiratory Rate 18 01/09/18 23:22 Blood Pressure 152/69 01/09/18 23:22 O2 Sat by Pulse Oximetry 96 01/09/18 23:22 Oxygen Delivery Oxygen Delivery Nasal Cannula Medical Decision Making - [facility] Narrative Medical decision making narrative: Patient appears fluid overloaded on exam with lower extremity edema as well as facial edema and rales on lung auscultation. We will get a chest x-ray. Given that she has missed her last 2 sessions of dialysis we will also check her potassium levels along with CMP and CBC. She is not on any anticoagulants - Lab Data Result diagrams: 01/09/18 22:40 01/09/18 22:40 Lab Results 01/09/18 01/09/18 01/09/18 Range/Units 22:40 22:40 22:40 WBC 20.6 H (4.3-11.1) K/mcL RBC 3.19 L (3.82-4.97) M/mcL Hgb 10.7 L (11.5-15.4) g/dL Hct 33.4 L (35.3-44.9) % MCV 104.7 H (83.0-100.0) fL MCH 33.5 H (28.0-33.3) pg MCHC 32.0 (31.6-35.5) g/dL RDW 16.7 H (11.5-14.5) % Plt Count 48 L (140-400) K/mcL MPV 10.1 (9.4-12.4) fL Seg Neutrophils % 84.0 % Band Neutrophils % 6.0 H (0-4) % Lymphocytes % 6.0 % Monocytes % 4.0 % Neutrophils # 18.5 H (1.6-8.9) K/mcL Lymphocytes # 1.2 (0.6-4.6) K/mcL Monocytes # 0.8 (0.0-1.3) K/mcL Nucleated RBCs/100 WBC 0.5 H (0) /100 WBC Platelet Estimate Decreased L (Normal) Immature Plt Fraction 3.6 (1.1-6.1) % Sodium 136 (136-145) mEq/L Potassium 6.8 H* (3.5-5.1) mEq/L Chloride 97 L (98-107) mEq/L Carbon Dioxide 19 L (23-29) mEq/L BUN > 130 H (8-23) mg/dL Creatinine 11.01 H (0.60-1.20) mg/dL Est GFR ( Amer) 4 L (> 60) Est GFR (Non-Af Amer) 3 L (> 60) BUN/Creatinine Ratio TNP Glucose 147 H (70-105) mg/dL Calculated Osmolality TNP Calcium 8.8 (8.6-10.3) mg/dL Total Bilirubin 0.5 (0.3-1.0) mg/dL AST 25 (13-39) Units/L ALT 8 (7-52) Units/L Alkaline Phosphatase 116 H (34-104) Units/L Troponin I 0.25 H* (< 0.04) ng/mL Serum Total Protein 5.8 L (6.4-8.9) g/dL Albumin 3.6 (3.5-5.7) g/dL Globulin 2.2 L (2.4-3.5) g/dL Albumin/Globulin Ratio 1.6 (1.1-2.2)
[2018-01-09 22:59] LABS: Hematocrit 33.4 % (35.3-44.9); Hemoglobin 10.7 g/dL (11.5-15.4); Immature Platelets 3.6 % (1.1-6.1); Mean Corpuscular Hemoglobin 33.5 pg (28.0-33.3); Mean Corpuscular Volume 104.7 fL (83.0-100.0); Mean Platelet Volume 10.1 fL (9.4-12.4); Nucleated Red Blood Cells 0.5 /100 WBC (0); Red Blood Count 3.19 M/mcL (3.82-4.97); Red Cell Distribution Width 16.7 % (11.5-14.5)
[2018-01-09 23:17] LABS: Platelet Count 48 K/mcL (140-400)
[2018-01-09 23:18] LABS: Lymphocytes # 1.2 K/mcL (0.6-4.6); Monocytes # 0.8 K/mcL (0.0-1.3); Neutrophils # 18.5 K/mcL (1.6-8.9)
[2018-01-09 23:19] LABS: Platelet Estimate Decreased (Normal)
[2018-01-09 23:21] LABS: Alanine Aminotransferase 8 Units/L (7-52); Albumin 3.6 g/dL (3.5-5.7); Albumin/Globulin Ratio 1.6 (1.1-2.2); Alkaline Phosphatase 116 Units/L (34-104); Aspartate Amino Transferase 25 Units/L (13-39); Bilirubin,Total 0.5 mg/dL (0.3-1.0); Blood Urea Nitrogen > 130 mg/dL (8-23); Calcium 8.8 mg/dL (8.6-10.3); Carbon Dioxide 19 mEq/L (23-29); Chloride 97 mEq/L (98-107); Globulin 2.2 g/dL (2.4-3.5); Glucose 147 mg/dL (70-105); Potassium 6.8 mEq/L (3.5-5.1); Sodium 136 mEq/L (136-145); Total Protein 5.8 g/dL (6.4-8.9); eGFR For African Americans 4 (> 60); eGFR For Non-African Americans 3 (> 60)
[2018-01-09] MEDS ORDERED: Albuterol Neb 1.25 MG/3 ML VIAL IH ONE (23:36)
[2018-01-09] MEDS ORDERED: Calcium Gluconate 2,000 MG in 0.9 % Sodium Chloride 100 ML IVPB ONE (23:36)
[2018-01-09] MEDS ORDERED: *HR* Dextrose 50 % in Water (Syg) 50 ML SYRINGE IVP ONE (23:37)
[2018-01-09] MEDS ORDERED: Insulin Human Regular 10 UNIT in 0.9 % Sodium Chloride 10 ML IV ONE (23:37)
[2018-01-09] MEDS ORDERED: Sodium Bicarbonate 50 MEQ/50 ML VIAL IVP ONE (23:37)
[2018-01-10] MEDS ORDERED: Acetaminophen 325 MG TABLET PO PRN (01:11)
[2018-01-10] MEDS ORDERED: Naloxone 0.4 MG/ML INJ IVP PRN (01:11)
--- NOTE | 2018-01-10 01:21 | Internal Med History&Physical ---
Date of Encounter: 01/10/18 Time of Encounter: 01:13 Internal Medicine - H&P: HPI Chief complaint: Shortness of breath Admitted From: Emergency Dept Plans for Post Hospital Care: Home History of present illness: Ms. Orellana is a 67 year old female with past medical history of COPD on chronic 4 L of O2, end-stage renal disease on Monday dialysis, CAD status post CABG, hypothyroidism, leukocytosis, medical noncompliance, who presents with family members and she has been noticing worsening edema and shortness of breath. By the time I evaluated the patient down in the emergency department that was no family members around. The patient seems depressed and down and not really cooperative with history. I remember this patient from a previous admission back in November for which she required ICU admission for COPD exacerbation and pneumonia. I discharged patient at the time. During her stay her had while also being admitted to the ICU. At the time there was some question regarding the patient possibly voicing suicidal thoughts after her 's but she denied that when I questioned her at that time. She was discharged in a stable condition. This time she missed her last 2 dialysis session and when I ask her why she is not able to give me a clear answer other than "I don't know". When she presented to the emergency department she was complaining of shortness of breath and increased swelling. O2 sats were 89% on room air initially but were up to the mid 90s on supplemental oxygen. Chest x-ray was clear. The patient has obvious edema. Laboratory workup showed abnormal kidney function consistent with end-stage renal disease with missed dialysis. She also had hyperkalemia of 6.8. EKG with no acute changes and no peaked T waves. The patient was treated in the ED for hyperkalemia with IV calcium gluconate, albuterol, insulin and dextrose, Kayexalate, and sodium bicarbonate. Nephrology were consulted and did not see a reason for urgent dialysis. The patient's laboratory workup also showed leukocytosis which seems to have been chronic for her since her last admission. She does have bandemia but has been afebrile. She is not on steroids. During her last stay the patient's peripheral smear was noted to have blasts and hematology were consulted at the time and she was supposed to follow-up with them. She is not able to tell me if she followed up with them and does not seem to be aware that she has to follow-up. She denies any fever, chills, nausea, vomiting, cough, chest pain, abdominal pain, diarrhea, constipation, urinary symptoms, or neurological symptoms Past Med Surg Social Fam HX - Past Medical History Medical history: arthritis, dialysis, hyperlipidemia, hypertension, renal disease, thyroid disease Additional medical history: Dialysis M-W-F Psychiatric history: anxiety, depression - Past Surgical History Surgical History: coronary bypass (CABG), other (Left arm dialysis shunt) Additional surgical history: kidney stents. DIALYSIS SHUNT left arm - Social History Smoking Status: Current every day smoker Smokeless Tobacco Status: No Alcohol use: none Drug use: none - Family History Brother Family Member Ethnicity: Unknown Hx Family Cardiac Disorders: Yes (one brother passed sudden heart attack) Mother Living Status: Hx Family Cancer: Yes (lung cancer) Father Living Status: Hx Family Cancer: Yes (lung cancer) Internal Medicine - H&P: Meds Albuterol Sulfate [Albuterol Inhaler] 2 puff IH Q4H PRN 06/02/15 [History] Atorvastatin [Lipitor] 40 mg PO HS 06/02/15 [History] Citalopram Hydrobromide [Citalopram HBr] 20 mg PO QAM 06/02/15 [History] Levothyroxine [Synthroid] 200 mcg PO QAM 06/02/15 [History] Metoprolol Tartrate 12.5 mg PO BID 06/02/15 [History] Omeprazole 40 mg PO QAM 06/02/15 [History] OxyCODONE Immed Rel [Roxicodone 10 MG] 10 mg PO Q6H PRN 06/02/15 [History] Docusate [Colace] 100 mg PO BID PRN 09/22/15 [History] B Complex with Vitamin C [Mary Ann-Bee with C] 1 tab PO DAILY 02/22/16 [History] Sevelamer [Renvela] 800 mg PO TIDWM 08/29/16 [History] Fluticasone/Salmeterol [Advair Hfa 115-21 Mcg Inhaler] 2 puff IH BID 11/14/16 [ History] Ipratropium/Albuterol Neb [Duoneb] 3 ml IH QID PRN 11/14/16 [History] Renal Vitamin [Renal Caps Softgel] 1 mg PO DAILY 11/14/16 [History] Umeclidinium [place] [Incruse Ellipta] 62.5 mcg IH DAILY 11/12/17 [History] Nicotine Patch [Nicoderm] 21 mg TD DAILY #28 patch.td24 11/20/17 [Rx] predniSONE [PredniSONE] See Taper PO TAPER #9 tablet 11/20/17 [Rx] 3 Allergy/AdvReac Type Severity Reaction Status Date / Time ceftriaxone [From Rocephin] Allergy Hives Verified 01/09/18 21:52 levofloxacin [From Levaquin] Allergy Hives Verified 01/09/18 21:52 All Systems PM: A 10-system review of systems was performed and is negative for pertinent findings except as documented above in the HPI. Review of systems: All systems reviewed are negative except for as mentioned above - Constitutional Vitals: Temp Pulse Resp BP Pulse Ox 97.6 F 93 18 152/69 96 01/09/18 21:49 01/09/18 23:22 01/09/18 23:22 01/09/18 23:22 01/09/18 23:22 Exam: GEN: NAD, patient seems depressed HEENT: AT, NC, No cyanosis, oral mucosa is moist, No JVD Lymphatics: No lymphadenoapthy Eyes: Extrocular muscles intact, anicteric CVS:RRR. S1, S2, No m/r/g RESP: Diminished ABD: Soft, NT, ND, +BS EXT: 2 + edema mainly at the ankle and feet edema, No rashes, 2+ DP NEURO: Nonfocal, CN II-XII intact, No focal motor or sensory deficits Psych: Patient seems depressed and not very cooperative with history taken. Internal Med - H&P Results - Labs CBC & Chem 7: 01/09/18 22:40 01/09/18 22:40 - Assessment and plan (1) Hyperkalemia Current Visit: Yes Status: Acute Assessment and plan: Treated with insulin and dextrose, Kayexalate, albuterol, sodium bicarbonate, and received calcium gluconate as well. Nephrology is consulted no urgent need for dialysis. We will check labs in the morning. Likely due to missing multiple dialysis sessions. (2) Elevated troponin Current Visit: No Status: Acute Assessment and plan: Elevated at 0.25. Chronically elevated although not to this degree. Likely demand ischemia from worsening kidney disease as she missed multiple dialysis sessions. We will trend troponins for now. EKG with no ischemic changes. (3) End stage renal disease Current Visit: No Status: Acute Assessment and plan: Patient was multiple dialysis sessions. It shows in her labs. Consult nephrology who will dialyze in the morning. (4) Leukocytosis Current Visit: No Status: Acute Assessment and plan: The patient does have bandemia. She has no signs of infection. She denies any fevers or cough. She did have leukocytosis on her previous admission and at that time blasts were seen and she was supposed to follow up with hematology. Not sure sure that she followed up. The patient does not have a history of noncompliance. We will monitor for now. No need for antibiotics. Qualifiers: Leukocytosis type: bandemia Qualified Code(s): D72.825 - Bandemia (5) Diastolic CHF Current Visit: No Status: Acute Assessment and plan: I do not believe the patient is CHF exacerbation. I think her symptoms are likely secondary to missing dialysis. We will continue her CHF medications. Qualifiers: Heart failure chronicity: chronic Qualified Code(s): I50.32 - Chronic diastolic (congestive) heart failure (6) CAD (coronary artery disease) Current Visit: No Status: Chronic Assessment and plan: Continue with cardiac meds. Qualifiers: Coronary Disease-Associated Artery/Lesion type: bypass graft [place] vs. transplanted heart: [place] heart Associated angina: with unspecified angina Qualified Code(s): I25.709 - Atherosclerosis of coronary artery bypass graft(s) , unspecified, with unspecified angina pectoris (7) COPD (chronic obstructive pulmonary disease) Current Visit: No Status: Chronic Assessment and plan: Continue O2 support. On chronic O2. Continue home inhalers. Qualifiers: COPD type: emphysema Emphysema type: unspecified Qualified Code(s): J43.9 - Emphysema, unspecified (8) Depression with anxiety Current Visit: No Status: Chronic Assessment and plan: Continue home medications. The patient seems down and depressed. (9) Hypothyroidism Current Visit: No Status: Chronic Assessment and plan: Continue home Synthroid. Qualifiers: Hypothyroidism type: acquired Qualified Code(s): E03.9 - Hypothyroidism, unspecified (10) DVT prophylaxis Current Visit: No Status: Acute Assessment and plan: SCDs - Time Spent With Patient Total time spent is greater than 50% in coordination of care (as documented) at patient's floor/unit and/or counseling patient:
[2018-01-10] MEDS ORDERED: Albuterol 2.5 MG/3 ML NEBULIZER IH ONE (01:45)
[2018-01-10 06:10] LABS: Basophils % 0.2 %; Immature Granulocytes % 6.1 % (0-4)
[2018-01-10 06:12] LABS: Hematocrit 31.6 % (35.3-44.9); Hemoglobin 9.9 g/dL (11.5-15.4); Immature Platelets 3.5 % (1.1-6.1); Lymphocytes # 0.2 K/mcL (0.6-4.6); Lymphocytes % 1.2 %; Mean Corpuscular HGB Conc 31.3 g/dL (31.6-35.5); Mean Corpuscular Hemoglobin 32.9 pg (28.0-33.3); Mean Platelet Volume 10.4 fL (9.4-12.4); Monocytes # 0.7 K/mcL (0.0-1.3); Monocytes % 3.8 %; Nucleated Red Blood Cells 0.6 /100 WBC (0); Red Blood Count 3.01 M/mcL (3.82-4.97); Red Cell Distribution Width 16.6 % (11.5-14.5); Segmented Neutrophils % 88.7 %
[2018-01-10 06:15] LABS: Neutrophils # 15.3 K/mcL (1.6-8.9); Platelet Count 48 K/mcL (140-400)
[2018-01-10 06:37] LABS: Blood Urea Nitrogen > 130 mg/dL (8-23); Calcium 9.1 mg/dL (8.6-10.3); Calcium 9.2 mg/dL (8.6-10.3); Carbon Dioxide 23 mEq/L (23-29); Carbon Dioxide 24 mEq/L (23-29); Chloride 95 mEq/L (98-107); Chloride 96 mEq/L (98-107); Glucose 171 mg/dL (70-105); Glucose 172 mg/dL (70-105); Magnesium 2.6 mg/dL (1.6-2.6); Potassium 6.2 mEq/L (3.5-5.1); Sodium 141 mEq/L (136-145); eGFR For African Americans 4 (> 60); eGFR For Non-African Americans 3 (> 60)
[2018-01-10 06:41] LABS: Platelet Estimate Decreased (Normal)
[2018-01-10 06:42] LABS: Anisocytosis 1+ (Not Present); Polychromasia 1+ (Not Present)
[2018-01-10] MEDS ORDERED: Insulin Human Regular 10 UNIT in 0.9 % Sodium Chloride 10 ML IV ONE (06:44)
[2018-01-10] MEDS ORDERED: *HR* Dextrose 50 % in Water (Syg) 50 ML SYRINGE IVP ONE (06:45)
--- NOTE | 2018-01-10 09:57 | Nephrology Consult Note ---
Date of Encounter: 01/10/18 Time of Encounter: 09:55 Assessment and Plan (1) End stage renal disease Current Visit: No Status: Chronic The patient will undergo dialysis today on a 2K bath. She will be placed on Aranesp for her anemia. (2) COPD (chronic obstructive pulmonary disease) Current Visit: No Status: Chronic Qualifiers: COPD type: emphysema Emphysema type: unspecified Qualified Code(s): J43.9 - Emphysema, unspecified (3) Anemia, chronic renal failure Current Visit: No Status: Acute Qualifiers: Chronic kidney disease stage: stage 5 Qualified Code(s): N18.5 - Chronic kidney disease, stage 5; D63.1 - Anemia in chronic kidney disease History of Present Illness - History of Present Illness This is a 67-year-old female with end-stage renal disease. She receives dialysis in by 10 every Monday. Patient has been poorly compliant with her dialysis attendance. She presented to the emergency room overnight with complaints of worsening shortness of breath in the setting of missing dialysis and a history of COPD. This x-ray was unremarkable. Potassium is been elevated. Current potassium is 6.2. She will receive dialysis this morning. Past Med Surg Social Fam HX - Past Medical History Medical history: arthritis, dialysis, hyperlipidemia, hypertension, renal disease, thyroid disease Additional medical history: Dialysis M-W-F Psychiatric history: anxiety, depression - Past Surgical History Surgical History: coronary bypass (CABG), other Additional surgical history: kidney stents. DIALYSIS SHUNT left arm - Social History Smoking Status: Current every day smoker Smokeless Tobacco Status: No Alcohol use: none Drug use: none - Family History Brother Family Member Ethnicity: Unknown Hx Family Cardiac Disorders: Yes (one brother passed sudden heart attack) Mother Living Status: Hx Family Cancer: Yes (lung cancer) Father Living Status: Hx Family Cancer: Yes (lung cancer) Medications and Allergies Atorvastatin [Lipitor] 40 mg PO HS 06/02/15 [History] Levothyroxine [Synthroid] 200 mcg PO QAM 06/02/15 [History] OxyCODONE Immed Rel [Roxicodone 10 MG] 10 mg PO Q6H PRN 06/02/15 [History] Docusate [Colace] 100 mg PO BID PRN 09/22/15 [History] B Complex with Vitamin C [Mary Ann-Bee with C] 1 tab PO DAILY 02/22/16 [History] Sevelamer [Renvela] 1,600 mg PO TIDWM 08/29/16 [History] Fluticasone/Salmeterol [Advair Hfa 115-21 Mcg Inhaler] 2 puff IH BID 11/14/16 [ History] Ipratropium/Albuterol Neb [Duoneb] 3 ml IH QID PRN 11/14/16 [History] Renal Vitamin [Renal Caps Softgel] 1 mg PO DAILY 11/14/16 [History] Umeclidinium [place] [Incruse Ellipta] 62.5 mcg IH DAILY 11/12/17 [History] Albuterol Sulfate [Proair Hfa] 2 puff IH Q4-6H PRN 01/10/18 [History] Citalopram Hydrobromide [Celexa] 20 mg PO DAILY 01/10/18 [History] Folic Acid 1 mg PO DAILY 01/10/18 [History] Metoprolol [Lopressor] 12.5 mg PO BID 01/10/18 [History] Omeprazole [PriLOSEC] 40 mg PO DAILY 01/10/18 [History] 3 Allergy/AdvReac Type Severity Reaction Status Date / Time ceftriaxone [From Rocephin] Allergy Hives Verified 01/09/18 21:52 levofloxacin [From Levaquin] Allergy Hives Verified 01/09/18 21:52 Review of Systems Constitutional: weakness Eyes: bilateral: blurred vision (patient denies), diplopia (patient denies) Nose, mouth and throat: no dizziness, no headache(s) Cardiovascular: dyspnea, dyspnea on exertion Respiratory: cough, dyspnea, dyspnea on exertion Gastrointestinal: no abdominal pain, no change in bowel habits Musculoskeletal: no muscle weakness, no numbness Integumentary: no hirsutism, no striae Neurological: as per HPI Psychiatric: depression, no difficulty concentrating Endocrine: as per HPI Hematologic/Lymphatic: no easy bruising, no lymphadenopathy Exam - Vital Signs Vital signs: Initial Vital Signs Temp Pulse Resp BP Pulse Ox 97.6 F 96 22 172/72 89 01/09/18 21:49 01/09/18 21:49 01/09/18 21:49 01/09/18 21:49 01/09/18 21:49 Vital Signs - Last 8 Hours Temp Pulse Resp BP Pulse Ox 01/10/18 07:15 98.9 F 107 18 138/54 92 Intake and Output 01/09/18 01/10/18 01/10/18 23:59 07:59 15:59 Intake Total 0 / 0 Balance 0 / 0 Intake: Oral 0 / 0 Other: Meal Breakfast Percent of Meal Consumed 0% Weight 56.245 kg Blood Glucose* 176 Patient Weight 01/10/18 23:59 Weight 56.245 kg - General Appearance Exam: Patient is somewhat difficult to arouse. She is in no acute distress. Vital signs are stable. Lungs bilateral rhonchi. Heart regular rate and rhythm. Abdomen shows normal bowel sounds or bruits masses Garavaglia tenderness. There is mild swelling of the feet. There is a functioning AV fistula in the left upper extremity. Results - Lab Results 01/10/18 05:29 01/10/18 05:29 Most recent lab results Calcium 9.1 mg/dL (8.6-10.3) 01/10/18 05:29 Magnesium 2.6 mg/dL (1.6-2.6) 01/10/18 05:29 Consult Discharge Plan - Plan Referrals: Yonatan Aleman DO [Primary Care Provider] -
[2018-01-10] MEDS ORDERED: 0.9 % Sodium Chloride 250 ML IVC PRN (09:58)
[2018-01-10] MEDS ORDERED: *HR* Metoprolol 5 MG/5 ML VIAL IVP ONE ×4 (15:54→16:06)
[2018-01-10] MEDS ORDERED: Ipratropium/Albuterol Neb 3 ML IH PRN (15:57)
[2018-01-10] MEDS ORDERED: 0.9 % Sodium Chloride 500 ML ONE (16:31)
[2018-01-10] MEDS ORDERED: *HR* Heparin 5,000 UNIT/ML VIAL IVP PRN ×2 (16:47)
[2018-01-10] MEDS ORDERED: *HR* Heparin 5,000 UNIT/ML VIAL IVP ONE (16:47)
[2018-01-10] MEDS ORDERED: Heparin 25,000 UNIT/500 ML D5W 25,000 UNIT/500 ML BAG IVC SCH (17:00)
[2018-01-10 17:05] LABS: Hemoglobin 9.7 g/dL (11.5-15.4); Mean Corpuscular Volume 102.6 fL (83.0-100.0)
[2018-01-10 17:06] LABS: Hematocrit 31.3 % (35.3-44.9); Immature Platelets 5.4 % (1.1-6.1); Mean Corpuscular Hemoglobin 31.8 pg (28.0-33.3); Mean Platelet Volume 10.9 fL (9.4-12.4); Red Blood Count 3.05 M/mcL (3.82-4.97); Red Cell Distribution Width 16.9 % (11.5-14.5)
[2018-01-10 17:22] LABS: Calcium 8.5 mg/dL (8.6-10.3); Magnesium 2.1 mg/dL (1.6-2.6); Potassium 4.7 mEq/L (3.5-5.1)
[2018-01-10 17:29] LABS: INR 1.1; Prothrombin Time 12.2 Seconds (9.4-12.1)
[2018-01-10 17:32] LABS: Activated Partial Thrombo Time 21.8 Seconds (26.0-36.0)
[2018-01-10 17:42] LABS: Thyroid Stimulating Hormone 0.167 mcIU/mL (0.340-5.600)
--- NOTE | 2018-01-10 18:11 | Electrocardiograph Report ---
[address] [place], [place] [address] Test Date: 2018-01-09 Pat Name: Rita Orellana Department: 104 Room: 2A42 Gender: F Travel Pt: : 1950 Requested By: Ion Mckoy Order Number: [id number] Reading MD: Rhys Phma Measurements Intervals [place] Rate: 96 P: 63 ND: 134 QRS: 80 QRSD: 106 T: 163 QT: 323 QTc: 377 Interpretive Statements SINUS RHYTHM INFEROLATERAL ISCHEMIA Electronically Signed On 01-10-2018 18:09:41 EDT by Rhys Pham
--- NOTE | 2018-01-10 18:42 | Internal Med Progress Note ---
Date of Encounter: 01/10/18 Time of Encounter: 10:00 - Assessment and plan (1) CAD (coronary artery disease) Current Visit: No Status: Chronic Qualifiers: Coronary Disease-Associated Artery/Lesion type: bypass graft [place] vs. transplanted heart: [place] heart Associated angina: with unspecified angina Qualified Code(s): I25.709 - Atherosclerosis of coronary artery bypass graft(s) , unspecified, with unspecified angina pectoris (2) COPD (chronic obstructive pulmonary disease) Current Visit: No Status: Chronic Qualifiers: COPD type: emphysema Emphysema type: unspecified Qualified Code(s): J43.9 - Emphysema, unspecified (3) DVT prophylaxis Current Visit: No Status: Acute (4) Hypothyroidism Current Visit: No Status: Chronic Qualifiers: Hypothyroidism type: acquired Qualified Code(s): E03.9 - Hypothyroidism, unspecified (5) Depression with anxiety Current Visit: No Status: Chronic (6) Leukocytosis Current Visit: No Status: Acute Qualifiers: Leukocytosis type: bandemia Qualified Code(s): D72.825 - Bandemia (7) Diastolic CHF Current Visit: No Status: Acute Qualifiers: Heart failure chronicity: chronic Qualified Code(s): I50.32 - Chronic diastolic (congestive) heart failure (8) Elevated troponin Current Visit: No Status: Acute (9) End stage renal disease Current Visit: No Status: Acute (10) Hyperkalemia Current Visit: Yes Status: Acute - Time Spent With Patient Total time spent is greater than 50% in coordination of care (as documented) at patient's floor/unit and/or counseling patient: - Constitutional Vitals: Temp Pulse Resp BP Pulse Ox 97.4 F L 96 20 118/63 91 01/10/18 15:40 01/10/18 11:20 01/10/18 15:40 01/10/18 15:40 01/10/18 11:20 Internal Medicine: Result - Labs CBC & Chem 7: 01/10/18 16:47 01/10/18 16:47 Labs: Short CBC 01/10/18 01/10/18 Range/Units 05:29 16:47 WBC 17.2 H 17.7 H (4.3-11.1) K/mcL Hgb 9.9 L 9.7 L (11.5-15.4) g/dL Hct 31.6 L 31.3 L (35.3-44.9) % Plt Count 48 L 44 L (140-400) K/mcL Neutrophils # 15.3 H (1.6-8.9) K/mcL BMP 01/10/18 01/10/18 01/10/18 05:29 05:29 16:47 Sodium 141 141 141 Potassium 6.2 H 6.2 H 4.7 Chloride 95 L 96 L 98 Carbon Dioxide 24 23 29 BUN > 130 H > 130 H 70 H Creatinine 11.29 H 11.31 H 6.46 H Glucose 172 H 171 H 126 H Calcium 9.2 9.1 8.5 L Cardiac Enzymes 01/10/18 01/10/18 Range/Units 05:29 11:38 Troponin I 0.28 H* 0.71 H* (< 0.04) ng/mL - ABG Interpretation ABG results: PT/INR, D-dimer PT 12.2 Seconds (9.4-12.1) H 01/10/18 16:47 Consult Discharge Plan - Plan Referrals: Yonatan Aleman DO [Primary Care Provider] -
--- NOTE | 2018-01-10 18:45 | Event Note ---
Date of Encounter: 01/10/18 Time of Encounter: 18:45 Patient was seen and examined earlier by hospitalist and I also examined the patient approximately 10 AM this morning at that time the patient was hemodynamically stable sinus rhythm on the monitor EKG showed no ST T wave abnormalities. She denies any chest pain shortness of breath or abdominal pain at that time. I was notified at approximately 3:30 PM by nursing staff patient was in dialysis and had a heart rate in the 160s. I dictated on to the dialysis unit EKG was obtained which did show A. fib RVR, rate 170s. Dialysis was stopped per dialysis nurse. Dialysis nurse does report that she just initiated dialysis 1 patient went into A. fib. Blood pressure was stable systolic around 120 patient was given 2 doses of 5 mg metoprolol she continued to be in A. fib rate 140s 150s. I did give 10 mg of Cardizem IV her rate did slow down to 130s. Her blood pressure did drop to 88-100 systolic. I did notify Dr. Salguero he did assess the patient at bedside. Initiated on Cardizem drip. I did order heparin drip did note the patient's platelets are 44. I did discuss patient with oncology MACHINIST HELPER Kaylen newton who did speak with Dr. Neal concerning anticoagulation and low platelets. Advised to give one pack of platelets to increase platelets, if greater than 50 may initiate anticoagulation and monitor platelets. Oncology will see patient on consult. I also contacted cardiology and spoke with Dr. Jo updated him on patient mentioned that she was initiated on Cardizem he will see patient up on result. Patient will be transferred to ICU once bed cleaned.
--- NOTE | 2018-01-10 20:38 | Event Note ---
Date of Encounter: 01/10/18 Time of Encounter: 20:25 Upon further review of records it is noted on EGD dated 11/17/2017-patient did not have a oozing gastric ulcer which was clipped. She has a history of anemia and is on Aranesp. She has had thrombocytopenia which appears to be chronic and has been seen by [facility] in the past -I did speak with blood bank, patient is A- and there are only a positive platelets available at this time. Since patient is at high risk for bleeding at this time we will hold heparin drip. Patient did get a bolus of heparin which was promptly stopped and heparin order DC'd. We will continue to monitor CBC and monitor for bleeding. Patient appears to be medically declining, she is not very interactive and only answers yes and no she has been noncompliant with dialysis, we will need to discuss advanced directives with family /patient as well as possibly palliative care.
[2018-01-10] MEDS ORDERED: Patient Taking Own Medication 1 EACH IH SCH (21:00)
[2018-01-11] MEDS: Levalbuterol 1 PUFF INHALER IH SCH ×7 (00:06→23:29)
[2018-01-11] MEDS ORDERED: *HR* Metoprolol 5 MG/5 ML VIAL IVP ONE (01:08)
[2018-01-11] MEDS ORDERED: Amiodarone Premix 360 MG/200 ML BAG IVC ONE (04:32)
[2018-01-11] MEDS ORDERED: Amiodarone Premix 150 MG/100 ML BAG IVPB ONE (04:32)
--- NOTE | 2018-01-11 04:42 | Event Note ---
Date of Encounter: 01/11/18 Time of Encounter: 04:00 Pt is on cardizem drip at maximum 15mg/hr for several hours but Hr remains 150 with A Futter 2:1 conduction. BP at lower side 100/70 level. Will switch to amiodarone bolus and drips. Cont closely monitor pt.
[2018-01-11 04:53] LABS: Calcium 8.7 mg/dL (8.6-10.3); Magnesium 2.1 mg/dL (1.6-2.6); Potassium 5.9 mEq/L (3.5-5.1)
[2018-01-11 04:55] LABS: Basophils % 0.2 %; Hematocrit 27.7 % (35.3-44.9); Hemoglobin 8.4 g/dL (11.5-15.4); Immature Granulocytes % 4.5 % (0-4); Lymphocytes # 0.4 K/mcL (0.6-4.6); Lymphocytes % 2.8 %; Mean Corpuscular HGB Conc 30.3 g/dL (31.6-35.5); Mean Corpuscular Hemoglobin 31.9 pg (28.0-33.3); Mean Corpuscular Volume 105.3 fL (83.0-100.0); Mean Platelet Volume 10.5 fL (9.4-12.4); Monocytes # 0.4 K/mcL (0.0-1.3); Monocytes % 3.1 %; Neutrophils # 11.7 K/mcL (1.6-8.9); Nucleated Red Blood Cells 0.2 /100 WBC (0); Platelet Count 37 K/mcL (140-400); Red Blood Count 2.63 M/mcL (3.82-4.97); Red Cell Distribution Width 17.1 % (11.5-14.5); Segmented Neutrophils % 89.4 %
[2018-01-11] MEDS ORDERED: *HR* Atropine Sulfate 1 MG/10 ML SYRINGE ONE (05:48)
[2018-01-11] MEDS ORDERED: Patient Taking Own Medication 1 EACH IH SCH (09:00)
[2018-01-11] MEDS ORDERED: Folic Acid 1 MG TABLET PO SCH (09:00)
[2018-01-11] MEDS ORDERED: Renal Vitamin 1 MG CAPSULE PO SCH (09:00)
[2018-01-11] MEDS ORDERED: Budesonide/Formoterol 80/4.5 MDI IH SCH (10:00)
--- NOTE | 2018-01-11 10:09 | Cardiology Consult Note ---
Date of Encounter: 01/11/18 Time of Encounter: 10:05 Assessment and Plan (1) Acute and chronic respiratory failure Current Visit: No Status: Acute Per Cardiology: Presented with SOB. Has history of COPD and utilizes home oxygen nasal cannula 4 L at home. Management per primary service. Qualifiers: Qualified Code(s): J96.20 - Acute and chronic respiratory failure, unspecified whether with hypoxia or hypercapnia (2) CKD (chronic kidney disease) Current Visit: No Status: Chronic Per Cardiology: History of end-stage renal disease on dialysis. Nephrology following. Qualifiers: Qualified Code(s): N18.6 - End stage renal disease; Z99.2 - Dependence on renal dialysis (3) New onset atrial fibrillation Current Visit: Yes Status: Acute Per Cardiology: Apparent new onset A. fib. Notes reviewed and patient apparently remained in atrial flutter with RVR despite IV Cardizem drip and IV Lopressor. Patient now converted to sinus rhythm after amiodarone drip initiated by primary service. Drip currently off. Currently not on any AV liz blocking agents. Will resume previous home medication of metoprolol tartrate 12.5 mg by mouth twice a day. Can consider titration if warranted. Magnesium stable. On Synthroid. Regarding long-term anticoagulation, ideally would be anticoagulated, however multiple comorbid issues currently in particular platelets in the 30s. Patient also presented with mental status changes. Recent noncompliance with dialysis. Recommend consider addition of aspirin if able. No need for heparin drip at this time and thus no need for platelet transfusion. Again, patient currently not a candidate for long-term anticoagulation after heparin drip anyway. Patient aware of increased stroke risk. Discussed and reviewed with Dr. Pham, cardiology will sign off, reconsult as needed, follow-up arranged. (4) CAD (coronary artery disease) Current Visit: No Status: Chronic Per Cardiology: History of CAD with CABG 3 in 2001. Underwent recent left heart catheterization at [facility] December 2017-- catheterization showed left main diffuse 10% irregularities, proximal LAD 90% lesion with competitive flow visualized and distal LAD and SIMMONS unable to be accessed due to severe tortuosity. Report was noted to show patency could not be verified by CT coronary angiography, however "given competitive flow observed on [place] left coronary angiography, this graft is open". Patient has occluded diagonal 1 SVG. Obtuse marginal 1 and 2 with diffuse 20-30% irregularities. RCA proximal occlusion and SVG to PDA occluded with distal RCA filling from left to right collaterals. Chest pain- free. On statin. We will resume beta esther. Currently not on aspirin due to low platelets. Can consider addition of long-acting nitrates if clinically warranted. Qualifiers: Qualified Code(s): I25.709 - Atherosclerosis of coronary artery bypass graft( s), unspecified, with unspecified angina pectoris (5) Elevated troponin Current Visit: Yes Status: Acute Per Cardiology: Peak troponin 0.71. Suspect demand ischemia in setting of end-stage renal disease with missed dialysis and multiple comorbidities. Recent catheterization as above. No cardiac rehabilitation warranted. Discussion w patient/family: The assessment and plan as outlined above was discussed with the patient who expressed understanding and agreement. All questions were answered. Thank you for involving us in the care of your patient. Please call with any questions. History of Present Illness Consult date: 01/11/18 Requesting physician: Melisa Shah Consult reason: afib RVR Chief complaint: SOB History of present illness: Ms. Orellana is a 67 year old female with a relevant past medical history of CAD/ CABG, hypertension, COPD, end-stage renal disease on hemodialysis, home oxygen, nicotine abuse, abdominal aortic aneurysm. Last seen by cardiology May 2017. Appeared to have pending appointment today to be seen by cardiology for follow-up after catheterization at [facility] recently. Cardiology consult for Loretta castle with RVR. Patient reports presented to Hospital due to worsening shortness of breath and dyspnea on exertion at home from baseline. She confirms missed dialysis appointments recently. She denies any chest pain, palpitations, dizziness, or any active bleeding or blood loss. Patient reports no symptoms yesterday when in atrial fibrillation. Confirmed had a recent catheterization at [facility] last month. Past Med Surg Social Fam HX - Past Medical History Attestation: Yes The following information was validated with the patient. Source: patient, old records reviewed Medical history: arthritis, dialysis, hyperlipidemia, hypertension, renal disease, thyroid disease Additional medical history: Dialysis M-W-F Psychiatric history: anxiety, depression - Past Surgical History Surgical History: coronary bypass (CABG), other (Left arm dialysis shunt) Additional surgical history: kidney stents. DIALYSIS SHUNT left arm - Social History Smoking Status: Current every day smoker Smokeless Tobacco Status: No Alcohol use: none Drug use: none - Family History Brother Family Member Ethnicity: Unknown Hx Family Cardiac Disorders: Yes (one brother passed sudden heart attack) Mother Living Status: Hx Family Cancer: Yes (lung cancer) Father Living Status: Hx Family Cancer: Yes (lung cancer) Medications and Allergies Atorvastatin [Lipitor] 40 mg PO HS 06/02/15 [History] Levothyroxine [Synthroid] 200 mcg PO QAM 06/02/15 [History] OxyCODONE Immed Rel [Roxicodone 10 MG] 10 mg PO Q6H PRN 06/02/15 [History] Docusate [Colace] 100 mg PO BID PRN 09/22/15 [History] B Complex with Vitamin C [[place] with C] 1 tab PO DAILY 02/22/16 [History] Sevelamer [Renvela] 1,600 mg PO TIDWM 08/29/16 [History] Fluticasone/Salmeterol [Advair Hfa 115-21 Mcg Inhaler] 2 puff IH BID 11/14/16 [ History] Ipratropium/Albuterol Neb [Duoneb] 3 ml IH QID PRN 11/14/16 [History] Renal Vitamin [Renal Caps Softgel] 1 mg PO DAILY 11/14/16 [History] Umeclidinium [place] [Incruse Ellipta] 62.5 mcg IH DAILY 11/12/17 [History] Albuterol Sulfate [Proair Hfa] 2 puff IH Q4-6H PRN 01/10/18 [History] Citalopram Hydrobromide [Celexa] 20 mg PO DAILY 01/10/18 [History] Folic Acid 1 mg PO DAILY 01/10/18 [History] Metoprolol [Lopressor] 12.5 mg PO BID 01/10/18 [History] Omeprazole [PriLOSEC] 40 mg PO DAILY 01/10/18 [History] 3 Allergy/AdvReac Type Severity Reaction Status Date / Time ceftriaxone [From Rocephin] Allergy Hives Verified 01/09/18 21:52 levofloxacin [From Levaquin] Allergy Hives Verified 01/09/18 21:52 All Systems Review: The remainder of the systems were reviewed and are negative - Cardiovascular Cardiovascular: as per HPI, dyspnea at rest, dyspnea on exertion Physical Examination Vital Signs, Last 4 Hours Temp Pulse Resp BP Pulse Ox 01/11/18 10:00 80 18 149/70 94 01/11/18 09:00 82 27 128/62 93 01/11/18 08:00 71 17 135/57 93 01/11/18 07:52 16 92 01/11/18 07:10 98.0 F 01/11/18 07:00 71 18 117/58 90 General: Conversant, No Apparent Distress HEENT: Atraumatic, Normocephaly, Mucus Membranes Moist Neck: No JVD, Normal carotid pulses Cardiac: Reg Rate and Rhythm, Normal S1 and S2, No Murmur Lungs: Normal Breath Sounds, No Wheeze, Rales, Rhonchi Neuro: Alert and responsive, No focal deficits noted Abdomen: Soft, Non-Tender Skin: No rashes noted on visualized skin Musculoskeletal: No Chest Wall Tenderness Extremities: No Clubbing, No Cyanosis, No Edema, Normal Pulses Results 01/11/18 04:14 01/11/18 04:14 Lab Results Laboratory Tests 01/09/18 01/09/18 01/09/18 22:40 22:40 22:40 WBC 20.6 H Hgb 10.7 L Plt Count INR Creatinine Est GFR (Non-Af Amer) Magnesium AST 25 ALT 8 Troponin I 0.25 H* TSH 01/10/18 01/10/18 01/10/18 05:29 11:38 16:47 WBC Hgb Plt Count INR Creatinine Est GFR (Non-Af Amer) Magnesium AST ALT Troponin I 0.28 H* 0.71 H* TSH 0.167 L 01/10/18 01/11/18 01/11/18 16:47 04:14 04:14 WBC 13.1 H Hgb 8.4 L Plt Count 37 L INR 1.1 Creatinine 7.09 H Est GFR (Non-Af Amer) 6 L Magnesium 2.1 AST ALT Troponin I TSH Intake & Output 01/08/18 01/09/18 01/10/18 01/11/18 23:59 23:59 23:59 23:59 Intake Total 3721.0 / 3721.0 331 / 331 Output Total 2308 / 2308 0 / 0 Balance 1413.0 / 1413.0 331 / 331 Weight 56.245 kg 60.8 kg ITS Impressions Chest X-Ray 01/09/18 21:57 IMPRESSION: No acute abnormality identified. D/ / Peter Morales MD / Peter Morales MD Interpreting Provider: Peter Morales MD Active Medications Acetaminophen (Tylenol) 650 mg PO Q6HR PRN PRN Reason: Mild Pain/Fever Stop: 07/12/18 01:12 Albuterol/Ipratropium (Duoneb) 3 ml IH QID PRN PRN Reason: Shortness Of Breath/Wheezing Stop: 07/12/18 15:58 Last Admin: 01/11/18 07:56 Dose: 3 ml Atorvastatin Calcium (Lipitor) 40 mg PO HS [facility] Stop: 07/12/18 21:01 Last Admin: 01/10/18 21:48 Dose: 40 mg Budesonide/Formoterol Fumarate (Symbicort) 2 puff IH BIDR [facility] Stop: 07/12/18 21:01 Last Admin: 01/11/18 07:51 Dose: 2 puff Citalopram Hydrobromide (Celexa) 20 mg PO DAILY [facility] Stop: 07/13/18 09:01 Last Admin: 01/11/18 09:21 Dose: 20 mg Darbepoetin Kadeem (Aranesp) 60 mcg SQ QWEEK [facility] Stop: 07/12/18 10:01 Last Admin: 01/11/18 08:40 Dose: Not Given Docusate Sodium (Colace) 100 mg PO BID PRN; Protocol PRN Reason: Constipation Stop: 07/12/18 15:58 Folic Acid (Folic Acid) 1 mg PO DAILY [facility] Stop: 07/13/18 09:01 Last Admin: 01/11/18 09:21 Dose: 1 mg Sodium Chloride (0.9 % Sodium Chloride) 250 mls @ 937.5 mls/hr IVC .Q16M PRN PRN Reason: Hypotension Stop: 07/12/18 09:59 Amiodarone HCl/Dextrose (Amiodarone Drip Premix 360mg/200ml) 360 mg in 200 mls @ 33.333 mls/hr IVC ONCE ONE PRN Reason: 1 MG/MIN Stop: 01/11/18 10:31 Last Infusion: 01/11/18 05:50 Dose: 0 mg/min, 0 mls/hr Amiodarone HCl/Dextrose (Amiodarone Drip Premix 360mg/200ml) 360 mg in 200 mls @ 16.667 mls/hr IVC CONT MILES PRN Reason: 0.5 MG/MIN Stop: 07/13/18 10:31 Last Admin: 01/11/18 09:21 Dose: Not Given Levalbuterol HCl (Xopenex) 2 puff IH [id number] MILES Stop: 07/13/18 00:01 Last Admin: 01/11/18 07:51 Dose: 2 puff Levothyroxine Sodium (Synthroid) 200 mcg PO QAM [facility] Stop: 07/13/18 09:01 Last Admin: 01/11/18 09:21 Dose: 200 mcg Naloxone HCl (Narcan) 0.4 mg IVP Q2MIN PRN PRN Reason: SEE COMMENTS Stop: 07/12/18 01:12 Omeprazole (Prilosec) 40 mg PO DAILY [facility] Stop: 07/13/18 09:01 Last Admin: 01/11/18 09:21 Dose: 40 mg Pharmacy Profile Note (Patient Taking Own Medication) 62.5 each IH DAILY [facility] Stop: 07/13/18 09:01 Last Admin: 01/11/18 09:25 Dose: Not Given Sevelamer HCl (Renvela) 1,600 mg PO TIDWM [facility] Stop: 07/12/18 17:01 Last Admin: 01/11/18 09:21 Dose: 1,600 mg Vitamin B Complex/Vit C/Folic Acid (Renal Caps Softgel) 1 mg PO DAILY [facility] Stop: 07/13/18 09:01 Last Admin: 01/11/18 09:20 Dose: 1 mg - Imaging and Cardiology Echo: report reviewed Cardiac cath: report reviewed - EKG Interpretation EKG results cardiology: personally reviewed (afib), other (Current telemetry shows sinus rhythm in the 80s) Consult Discharge Plan - Plan Referrals: Yonatan Aleman DO [Primary Care Provider] -
--- NOTE | 2018-01-11 10:25 | Nephrology Progress Note ---
Date of Encounter: 01/11/18 Time of Encounter: 10:05 Subjective Interval history: A/P- Off HDearly yesterday Anahi. K+ 5.9.Willdo HD today,ordersgiven. Laying qietly in bed, denies shortness of breath. Objective - Vital Signs Vital signs: Vital Signs Temp Pulse Resp BP Pulse Ox 01/11/18 10:00 80 18 149/70 94 01/11/18 09:00 82 27 128/62 93 01/11/18 08:00 71 17 135/57 93 01/11/18 07:52 16 92 01/11/18 07:10 98.0 F 01/11/18 07:00 71 18 117/58 90 01/11/18 06:00 61 16 116/62 95 01/11/18 05:00 147 16 101/70 92 01/11/18 04:00 149 18 95/65 94 01/11/18 03:44 18 97 01/11/18 03:00 98.1 F 147 16 107/67 92 01/11/18 02:00 149 16 103/74 94 01/11/18 01:00 156 16 109/64 92 01/11/18 00:07 22 96 01/11/18 00:00 98.8 F 152 18 114/69 95 01/10/18 23:09 154 01/10/18 23:00 154 18 119/76 95 01/10/18 22:00 152 18 113/70 93 01/10/18 21:00 152 18 115/74 92 01/10/18 20:00 152 16 122/78 91 01/10/18 19:50 98.3 F 151 20 137/90 93 01/10/18 15:40 97.4 F L 20 118/63 01/10/18 15:30 95/50 01/10/18 15:15 98/49 01/10/18 15:00 105/53 01/10/18 14:45 94/53 01/10/18 14:30 109/88 01/10/18 14:15 133/66 01/10/18 14:00 143/60 01/10/18 13:45 97.2 F L 18 145/75 01/10/18 11:20 98.8 F 96 18 142/58 91 Intake and Output 06/01/2201/11/18 01/11/18 23:59 07:59 15:59 Intake Total 121.0 / 121.0 151 / 151 180 / 180 Output Total 500 / 500 0 / 0 Balance -379.0 / -379.0 151 / 151 180 / 180 Intake: IV Fluids 121.0 / 121.0 151 / 151 Amiodarone Drip Premix 360mg/ 20 / 20 200mL 360 mg In 200 ml @ 1 MG/ MIN 33.333 mls/hr IVC ONCE ONE Rx#:[id number] Cardizem 125 MG In 0.9 % Sodium 119.0 / 119.0 31 / 31 Chloride 100 ML @ 5 MG/HR 5 mls/hr IVC .Q24H [facility] Rx#: [id number] Heparin 25,000 UNIT/500 ML D5W 2 / 2 25,000 unit In 500 ml @ 14 UNIT /KG/HR 15.749 mls/hr IVC .Q24H MILES Rx#:[id number] Amiodarone Premix 150mg/100mL 100 / 100 150 mg In 100 ml @ 300 mls/hr IVPB ONCE ONE Rx#:[id number] Oral 0 / 0 0 / 0 180 / 180 Output: Urine 500 / 500 0 / 0 Other: Meal Breakfast Percent of Meal Consumed 65% Stool Size Small Stool Consistency loose soft Stool Color Brown # Voids 1 # Bowel Movements 1 Weight 60.8 kg Blood Glucose* 115 - General Appearance General appearance: Present: well-developed, well-nourished, appears started age EENT: Present: mucous membranes moist Neck: Present: no JVD Respiratory: Present: clear Cardiology: Present: regular rate, regular rhythm Additional Comments: pedal Gastrointestinal: Present: normoactive bowel sounds, no tenderness Integumentary: Present: warm and dry Neurologic: Present: alert and oriented x3 - Lab 01/11/18 04:14 01/11/18 04:14 Most recent lab results Calcium 8.7 mg/dL (8.6-10.3) 01/11/18 04:14 Magnesium 2.1 mg/dL (1.6-2.6) 01/11/18 04:14 - VTE Documentation of Mechanical Device: Intermittent pneumatic compression device Consult Discharge Plan - Plan Referrals: Yonatan Aleman DO [Primary Care Provider] -
[2018-01-11] MEDS ORDERED: Amiodarone Premix 360 MG/200 ML BAG IVC SCH (10:30)
[2018-01-11] MEDS ORDERED: 0.9 % Sodium Chloride 250 ML IVC PRN (10:35)
[2018-01-11] MEDS ORDERED: 0.9 % Sodium Chloride 1,000 ML PRIME SCH ×2 (10:45→14:26)
--- NOTE | 2018-01-11 10:54 | Internal Med Progress Note ---
Date of Encounter: 01/11/18 Time of Encounter: 10:50 - Assessment and plan (1) CAD (coronary artery disease) Current Visit: Yes Status: Chronic Assessment and plan: Continue statin, not on ASA Qualifiers: Coronary Disease-Associated Artery/Lesion type: bypass graft [place] vs. transplanted heart: [place] heart Associated angina: with unspecified angina Qualified Code(s): I25.709 - Atherosclerosis of coronary artery bypass graft(s) , unspecified, with unspecified angina pectoris (2) COPD (chronic obstructive pulmonary disease) Current Visit: Yes Status: Chronic Assessment and plan: Continue O2 support. On chronic O2. Continue home inhalers, not in exacerbation, duonebs prn Qualifiers: COPD type: emphysema Emphysema type: unspecified Qualified Code(s): J43.9 - Emphysema, unspecified (3) DVT prophylaxis Current Visit: Yes Status: Acute Assessment and plan: SCDs (4) Hypothyroidism Current Visit: Yes Status: Chronic Assessment and plan: TSH 0.167, check free T3 and T4, hold synthroid for now, patient had Afib with RVR Qualifiers: Hypothyroidism type: acquired Qualified Code(s): E03.9 - Hypothyroidism, unspecified (5) Depression with anxiety Current Visit: Yes Status: Chronic Assessment and plan: Continue home medications. The patient seems down and depressed. She denies sicidal ideation, continue citaloparm, add low dose trazodone (6) Leukocytosis Current Visit: Yes Status: Acute Assessment and plan: The patient does have bandemia. She has no signs of infection. She denies any fevers or cough. She did have leukocytosis on her previous admission and at that time blasts were seen and she was supposed to follow up with hematology. Not sure sure that she followed up. The patient does not have a history of noncompliance. We will monitor for now. No need for antibiotics. Qualifiers: Leukocytosis type: bandemia Qualified Code(s): D72.825 - Bandemia (7) Diastolic CHF Current Visit: Yes Status: Acute Assessment and plan: I do not believe the patient is CHF exacerbation. I think her symptoms are likely secondary to missing dialysis. We will continue her CHF medications. Continue BB and statin, not on lasix Qualifiers: Heart failure chronicity: chronic Qualified Code(s): I50.32 - Chronic diastolic (congestive) heart failure (8) Elevated troponin Current Visit: Yes Status: Acute Assessment and plan: Due to demand ischemia , worsened by RVR, in the setting of Afib, ESRD , no intervention. (9) End stage renal disease Current Visit: Yes Status: Chronic Assessment and plan: With hyperkalemia, not complaint with HD Consider SW eval prior to discharged K today 5.9, for HD per renal (10) Hyperkalemia Current Visit: Yes Status: Acute Assessment and plan: Kayexalate po HD today per renal (11) New onset atrial fibrillation Current Visit: Yes Status: Acute Assessment and plan: Newly diagnosed Afib/flutter with RVR Required multipel agents including cardizem/metoprolol/ Converted with amio Not on any drips/infusions at time of review TSH low normal, check Free T3 and Fercho T4 Not a candidate for a/c, cardio following K today 5.9,,Maxine stable Continue metoprolol po, titrate prn hemodynamically stable at this time, cardio eval noted - Time Spent With Patient Total time spent is greater than 50% in coordination of care (as documented) at patient's floor/unit and/or counseling patient: - Subjective Interval history: Seen and evaluated at the bedside 67 F with PMH of ESRD on HD, non-complaint, depression , Chronic resp failure on home O2, COPD, CAD She was admitted for hyperkalemia but developed newly diagnosed afib with RVR requiring multiple agents She was seen in the ICU has converted to sinus rhythm since overnight , she is no longer on amiodarone She is not a candidate for anticoagulation due to thrombocytopenia and hx of GIB She seems cheerful this mrn, and denies any new complains, no CP, no SOB She agrees to being depressed and agrees to trial of trazodone, she is not suicidal K is 5.9 this a.m, she will undergo HD per nephrology She may be transferred to regular floor on tele after HD - Constitutional Vitals: Temp Pulse Resp BP Pulse Ox 98.0 F 80 18 149/70 94 01/11/18 07:10 01/11/18 10:00 01/11/18 10:00 01/11/18 10:00 01/11/18 10:00 General appearance: Present: A&O X 3, pleasant, no acute distress - Head Head exam: Present: atraumatic, normocephalic - Eye Eye exam: Present: PERRL, conjuntiva pink, sclera anicteric Pupils: Present: PERRL - Neck Neck exam general surgery: Present: supple, trachea midline. Absent: lymphadenopathy - Respiratory Respiratory exam: Present: CTAB. Absent: accessory muscle use, rales, rhonchi, wheezes - Cardiovascular Cardiovascular exam: Present: RRR, +S1, +S2. Absent: diastolic murmur, gallop, rubs, systolic murmur - GI/Abdominal GI/Abdominal exam: Present: normal bowel sounds, soft, no peritoneal signs. Absent: distended, tenderness - Extremities Exam Extremities exam: Present: pedal edema (1+ pedal edema), warm, radial pulses palpable and symmetrical. Absent: calf tenderness, cyanotic - Neurological Exam Neurological exam: Present: alert, CN II-XII intact, oriented X3, no focal deficits. Absent: pronater drift, facial droop, speech deficit - Skin Skin exam: Present: dry, intact Internal Medicine: Result - Labs CBC & Chem 7: 01/11/18 04:14 01/11/18 04:14 Labs: Short CBC 01/10/18 01/11/18 Range/Units 16:47 04:14 WBC 17.7 H 13.1 H (4.3-11.1) K/mcL Hgb 9.7 L 8.4 L (11.5-15.4) g/dL Hct 31.3 L 27.7 L (35.3-44.9) % Plt Count 44 L 37 L (140-400) K/mcL Neutrophils # 11.7 H (1.6-8.9) K/mcL BMP 01/10/18 01/11/18 16:47 04:14 Sodium 141 141 Potassium 4.7 5.9 H D Chloride 98 98 Carbon Dioxide 29 27 BUN 70 H 80 H Creatinine 6.46 H 7.09 H Glucose 126 H 101 Calcium 8.5 L 8.7 Cardiac Enzymes 01/10/18 Range/Units 11:38 Troponin I 0.71 H* (< 0.04) ng/mL - ABG Interpretation ABG results: PT/INR, D-dimer PT 12.2 Seconds (9.4-12.1) H 01/10/18 16:47 - VTE Documentation of Mechanical Device: Intermittent pneumatic compression device Consult Discharge Plan - Plan Referrals: Yonatan Aleman DO [Primary Care Provider] -
[2018-01-11 12:03] LABS: Vitamin B12 565 pg/mL (250-1100)
[2018-01-11 12:09] LABS: Folate > 22.3 ng/mL (3.0-16.0)
[2018-01-11 12:16] LABS: % Iron Saturation 27 % (15-50); Iron 41 mcg/dL (50-170); Lactate Dehydrogenase 338 Units/L (140-271); Transferrin 109 mg/dL (203-362)
[2018-01-11] MEDS ORDERED: 0.9 % Sodium Chloride 1,000 ML ONE (12:51)
[2018-01-11 14:00] LABS: Ferritin > 1500 ng/mL (10-120)
[2018-01-11] MEDS ORDERED: Acetaminophen 325 MG TABLET PO PRN (14:26)
[2018-01-11] MEDS ORDERED: Naloxone 0.4 MG/ML INJ IVP PRN (14:26)
[2018-01-11] MEDS: Ipratropium/Albuterol Neb 3 ML IH SCH ×2 (15:34→21:03)
--- NOTE | 2018-01-11 16:29 | Oncology Inp Consult Note ---
<Anne White S - Last Filed: 01/12/18 17:59> Date of Encounter: 01/12/18 - Data of Consult Requesting Physician: Gabo Holguin MD Primary Care Provider: Yonatan Aleman, - Consult Narrative History of present illness: Ms. Orellana is a 67 year old female Medications and Allergies Atorvastatin [Lipitor] 40 mg PO HS 06/02/15 [History] Levothyroxine [Synthroid] 200 mcg PO QAM 06/02/15 [History] OxyCODONE Immed Rel [Roxicodone 10 MG] 10 mg PO Q6H PRN 06/02/15 [History] Docusate [Colace] 100 mg PO BID PRN 09/22/15 [History] B Complex with Vitamin C [[place]ee with C] 1 tab PO DAILY 02/22/16 [History] Sevelamer [Renvela] 1,600 mg PO TIDWM 08/29/16 [History] Fluticasone/Salmeterol [Advair Hfa 115-21 Mcg Inhaler] 2 puff IH BID 11/14/16 [ History] Ipratropium/Albuterol Neb [Duoneb] 3 ml IH QID PRN 11/14/16 [History] Renal Vitamin [Renal Caps Softgel] 1 mg PO DAILY 11/14/16 [History] Umeclidinium [place] [Incruse Ellipta] 62.5 mcg IH DAILY 11/12/17 [History] Albuterol Sulfate [Proair Hfa] 2 puff IH Q4-6H PRN 01/10/18 [History] Citalopram Hydrobromide [Celexa] 20 mg PO DAILY 01/10/18 [History] Folic Acid 1 mg PO DAILY 01/10/18 [History] Metoprolol [Lopressor] 12.5 mg PO BID 01/10/18 [History] Omeprazole [PriLOSEC] 40 mg PO DAILY 01/10/18 [History] 3 Allergy/AdvReac Type Severity Reaction Status Date / Time ceftriaxone [From Rocephin] Allergy Hives Verified 01/09/18 21:52 levofloxacin [From Levaquin] Allergy Hives Verified 01/09/18 21:52 Oncology - Exam - Constitutional Vitals: Temp Pulse Resp BP Pulse Ox 98.6 F 109 18 186/90 90 01/12/18 15:38 01/12/18 15:38 01/12/18 15:49 01/12/18 17:48 01/12/18 15:49 Oncology - Results Labs: 3 01/12/18 01/12/18 01/12/18 06:02 06:02 06:02 WBC RBC Hgb Hct MCV MCH MCHC RDW Plt Count MPV Immature Gran % Seg Neutrophils % Lymphocytes % Monocytes % Eosinophils % Basophils % Neutrophils # Lymphocytes # Monocytes # Eosinophils # Basophils # Nucleated RBCs/100 WBC Platelet Estimate Immature Plt Fraction Polychromasia Anisocytosis Smear Path Review PT INR APTT Fibrinogen Sodium 138 Potassium 4.8 Chloride 98 Carbon Dioxide 28 BUN 52 H Creatinine 5.28 H Est GFR ( Amer) 10 L Est GFR (Non-Af Amer) 8 L BUN/Creatinine Ratio 10 Glucose 114 H POC Glucose Calculated Osmolality 301 H Lactic Acid Calcium 8.7 Magnesium 2.0 Iron % Saturation Transferrin Ferritin Lactate Dehydrogenase Troponin I Vitamin B12 Folate TSH Free T4 0.79 Free T3 1.89 L Hepatitis A IgM Ab Nonreactive Hep Bs Antigen Nonreactive Hep B Core IgM Ab Nonreactive Hepatitis C Ab Screen Nonreactive Blood Type Antibody Screen MAINE, Poly Interpret 3 01/12/18 01/12/18 01/11/18 06:02 03:31 11:03 WBC 8.5 RBC 2.66 L Hgb 8.5 L Hct 27.0 L MCV 101.5 H MCH 32.0 MCHC 31.5 L RDW 16.2 H Plt Count 33 L MPV 10.4 Immature Gran % 4.0 Seg Neutrophils % 88.4 Lymphocytes % 3.6 Monocytes % 3.9 Eosinophils % 0.0 Basophils % 0.1 Neutrophils # 7.5 Lymphocytes # 0.3 L Monocytes # 0.3 Eosinophils # 0.0 Basophils # 0.0 Nucleated RBCs/100 WBC 0.2 H Platelet Estimate Immature Plt Fraction 4.2 Polychromasia Anisocytosis Smear Path Review PT INR APTT Fibrinogen Sodium Potassium Chloride Carbon Dioxide BUN Creatinine Est GFR ( Amer) Est GFR (Non-Af Amer) BUN/Creatinine Ratio Glucose POC Glucose 112 H Calculated Osmolality Lactic Acid Calcium Magnesium Iron % Saturation Transferrin Ferritin Lactate Dehydrogenase Troponin I Vitamin B12 565 Folate > 22.3 H TSH Free T4 Free T3 Hepatitis A IgM Ab Hep Bs Antigen Hep B Core IgM Ab Hepatitis C Ab Screen Blood Type Antibody Screen MAINE, Poly Interpret 3 01/11/18 01/11/18 01/11/18 11:03 11:03 11:03 WBC RBC Hgb Hct MCV MCH MCHC RDW Plt Count MPV Immature Gran % Seg Neutrophils % Lymphocytes % Monocytes % Eosinophils % Basophils % Neutrophils # Lymphocytes # Monocytes # Eosinophils # Basophils # Nucleated RBCs/100 WBC Platelet Estimate Immature Plt Fraction Polychromasia Anisocytosis Smear Path Review See Below PT INR APTT Fibrinogen 252 Sodium Potassium Chloride Carbon Dioxide BUN Creatinine Est GFR ( Amer) Est GFR (Non-Af Amer) BUN/Creatinine Ratio Glucose POC Glucose Calculated Osmolality Lactic Acid Calcium Magnesium Iron 41 L % Saturation 27 Transferrin 109 L Ferritin > 1500 H Lactate Dehydrogenase 338 H Troponin I Vitamin B12 Folate TSH Free T4 Free T3 Hepatitis A IgM Ab Hep Bs Antigen Hep B Core IgM Ab Hepatitis C Ab Screen Blood Type Antibody Screen MAINE, Poly Interpret 3 01/11/18 01/11/18 01/10/18 04:14 04:14 19:44 WBC 13.1 H RBC 2.63 L Hgb 8.4 L Hct 27.7 L MCV 105.3 H MCH 31.9 MCHC 30.3 L RDW 17.1 H Plt Count 37 L MPV 10.5 Immature Gran % 4.5 H Seg Neutrophils % 89.4 Lymphocytes % 2.8 Monocytes % 3.1 Eosinophils % 0.0 Basophils % 0.2 Neutrophils # 11.7 H Lymphocytes # 0.4 L Monocytes # 0.4 Eosinophils # 0.0 Basophils # 0.0 Nucleated RBCs/100 WBC 0.2 H Platelet Estimate Immature Plt Fraction Polychromasia Anisocytosis Smear Path Review PT INR APTT Fibrinogen Sodium 141 Potassium 5.9 H D Chloride 98 Carbon Dioxide 27 BUN 80 H Creatinine 7.09 H Est GFR ( Amer) 7 L Est GFR (Non-Af Amer) 6 L BUN/Creatinine Ratio 11 Glucose 101 POC Glucose 115 H Calculated Osmolality 316 H Lactic Acid Calcium 8.7 Magnesium 2.1 Iron % Saturation Transferrin Ferritin Lactate Dehydrogenase Troponin I Vitamin B12 Folate TSH Free T4 Free T3 Hepatitis A IgM Ab Hep Bs Antigen Hep B Core IgM Ab Hepatitis C Ab Screen Blood Type Antibody Screen MAINE, Poly Interpret 3 01/10/18 01/10/18 01/10/18 18:48 18:44 16:47 WBC RBC Hgb Hct MCV MCH MCHC RDW Plt Count MPV Immature Gran % Seg Neutrophils % Lymphocytes % Monocytes % Eosinophils % Basophils % Neutrophils # Lymphocytes # Monocytes # Eosinophils # Basophils # Nucleated RBCs/100 WBC Platelet Estimate Immature Plt Fraction Polychromasia Anisocytosis Smear Path Review PT 12.2 H INR 1.1 APTT 21.8 L Fibrinogen Sodium Potassium Chloride Carbon Dioxide BUN Creatinine Est GFR ( Amer) Est GFR (Non-Af Amer) BUN/Creatinine Ratio Glucose POC Glucose Calculated Osmolality Lactic Acid 0.7 Calcium Magnesium Iron % Saturation Transferrin Ferritin Lactate Dehydrogenase Troponin I Vitamin B12 Folate TSH Free T4 Free T3 Hepatitis A IgM Ab Hep Bs Antigen Hep B Core IgM Ab Hepatitis C Ab Screen Blood Type A NEGATIVE Antibody Screen NEGATIVE MAINE, Poly Interpret NEG 3 01/10/18 01/10/18 01/10/18 16:47 16:47 11:38 WBC 17.7 H RBC 3.05 L Hgb 9.7 L Hct 31.3 L MCV 102.6 H MCH 31.8 MCHC 31.0 L RDW 16.9 H Plt Count 44 L MPV 10.9 Immature Gran % Seg Neutrophils % Lymphocytes % Monocytes % Eosinophils % Basophils % Neutrophils # Lymphocytes # Monocytes # Eosinophils # Basophils # Nucleated RBCs/100 WBC Platelet Estimate Immature Plt Fraction 5.4 Polychromasia Anisocytosis Smear Path Review PT INR APTT Fibrinogen Sodium 141 Potassium 4.7 Chloride 98 Carbon Dioxide 29 BUN 70 H Creatinine 6.46 H Est GFR ( Amer) 8 L Est GFR (Non-Af Amer) 6 L BUN/Creatinine Ratio 11 Glucose 126 H POC Glucose Calculated Osmolality 314 H Lactic Acid Calcium 8.5 L Magnesium 2.1 Iron % Saturation Transferrin Ferritin Lactate Dehydrogenase Troponin I 0.71 H* Vitamin B12 Folate TSH 0.167 L Free T4 Free T3 Hepatitis A IgM Ab Hep Bs Antigen Hep B Core IgM Ab Hepatitis C Ab Screen Blood Type Antibody Screen MAINE, Poly Interpret 3 01/10/18 01/10/18 01/10/18 11:24 08:17 05:29 WBC RBC Hgb Hct MCV MCH MCHC RDW Plt Count MPV Immature Gran % Seg Neutrophils % Lymphocytes % Monocytes % Eosinophils % Basophils % Neutrophils # Lymphocytes # Monocytes # Eosinophils # Basophils # Nucleated RBCs/100 WBC Platelet Estimate Immature Plt Fraction Polychromasia Anisocytosis Smear Path Review PT INR APTT Fibrinogen Sodium 141 Potassium 6.2 H Chloride 96 L Carbon Dioxide 23 BUN > 130 H Creatinine 11.31 H Est GFR ( Amer) 4 L Est GFR (Non-Af Amer) 3 L BUN/Creatinine Ratio TNP Glucose 171 H POC Glucose 110 H 176 H Calculated Osmolality TNP Lactic Acid Calcium 9.1 Magnesium Iron % Saturation Transferrin Ferritin Lactate Dehydrogenase Troponin I Vitamin B12 Folate TSH Free T4 Free T3 Hepatitis A IgM Ab Hep Bs Antigen Hep B Core IgM Ab Hepatitis C Ab Screen Blood Type Antibody Screen MAINE, Poly Interpret 3 01/10/18 01/10/18 01/10/18 05:29 05:29 05:29 WBC 17.2 H RBC 3.01 L Hgb 9.9 L Hct 31.6 L MCV 105.0 H MCH 32.9 MCHC 31.3 L RDW 16.6 H Plt Count 48 L MPV 10.4 Immature Gran % 6.1 H Seg Neutrophils % 88.7 Lymphocytes % 1.2 Monocytes % 3.8 Eosinophils % 0.0 Basophils % 0.2 Neutrophils # 15.3 H Lymphocytes # 0.2 L Monocytes # 0.7 Eosinophils # 0.0 Basophils # 0.0 Nucleated RBCs/100 WBC 0.6 H Platelet Estimate Decreased L Immature Plt Fraction 3.5 Polychromasia 1+ A Anisocytosis 1+ A Smear Path Review PT INR APTT Fibrinogen Sodium 141 Potassium 6.2 H Chloride 95 L Carbon Dioxide 24 BUN > 130 H Creatinine 11.29 H Est GFR ( Amer) 4 L Est GFR (Non-Af Amer) 3 L BUN/Creatinine Ratio TNP Glucose 172 H POC Glucose Calculated Osmolality TNP Lactic Acid Calcium 9.2 Magnesium 2.6 Iron % Saturation Transferrin Ferritin Lactate Dehydrogenase Troponin I 0.28 H* Vitamin B12 Folate TSH Free T4 Free T3 Hepatitis A IgM Ab Hep Bs Antigen Hep B Core IgM Ab Hepatitis C Ab Screen Blood Type Antibody Screen MAINE, Poly Interpret Consult Discharge Plan - Plan Referrals: Yonatan Aleman DO [Primary Care Provider] - - Attending Attestation 1. Likely metastatic carcinoma. CT chest abdomen and pelvis without contrast 01/11/2018 lower subcarinal lymph node about 5 cm with right lung pleural-based mass like density. Multiple liver metastasis and T10 bone metastasis lytic lesion She needs biopsy to establish diagnosis. Likely bronchoscopy biopsy or CT- guided biopsy of the liver lesion 2. Acute on chronic thrombocytopenia. Platelet counts of been around 100 K since 2015 but dropped to 33,000 during this admission Etiology not clear. She does not have major cirrhosis. We will do thrombocytopenia workup including viral hepatitis panel Iron and B12 folate. Ferritin more than 1500. TSH mildly suppressed but she is on Synthroid 200 g by mouth daily 3. Macrocytic anemia. Hemoglobin around 8 but mostly stable since 2014. MCV 101. Some of this could be from her kidney disease 4. End-stage renal disease hemodialysis. Creatinine around 7. She has atrophic kidneys by CAT scan with some renal cysts May need to transfuse platelets to bring it above 50,000 for biopsy Further treatment recommendation after diagnosis <Kaylen Stubbs - Last Filed: 01/12/18 20:25> Date of Encounter: 01/11/18 Time of Encounter: 16:28 Assessment and Plan (1) Leukocytosis Status: Acute Assessment and plan: Neutrophil predominant leukocytosis with bandemia. Peripheral flow negative for B-Cell or T-Cell abnormality. Blood smear-. The white count is increased with absolute neutrophilia. Mild anemia is present. Red blood cell count, hemoglobin and hematocrit are slightly decreased. MCV is increased. Microcytes, macrocytes, ovalocytes and rare schistocytes seen. The platelet count is decreased. Platelets are mostly small and granular. Leukocytes consists mostly of segmented neutrophils , lymphocytes , monocytes . Few immature granulocytes. Leukocytosis with absoulte/relative neutrophilia, bands and mild left shift, favor reactive process Qualifiers: Leukocytosis type: bandemia Qualified Code(s): D72.825 - Bandemia (2) Thrombocytopenia Status: Acute Assessment and plan: Appears chronic and intermittent since 2014, acutely worsened. Etiology unclear Patient is unable to have contrast due to kidney function. Abdomen/Pelvis CTA from 2017 notes splenomegaly. Check fibrinogen, hepatitis panel, blood smear, platelet antibody (3) Anemia in chronic kidney disease Status: Chronic Assessment and plan: Hgb 8.4, slightly below baseline for patient. She does have Anemia of chronic disease She had an EGD with treatment of an oozing gastric ulcer during prior admission. She denies any s/s of bleeding such as hemoptysis, hematochezia or melena. Check Iron, Ferritin, B12, Folate, SPEP, LDH, L[place] Qualifiers: Chronic kidney disease stage: unspecified stage Qualified Code(s): N18.9 - Chronic kidney disease, unspecified; D63.1 - Anemia in chronic kidney disease; D63.1 - Anemia in chronic kidney disease - Data of Consult Patient: known to practice within the last 3 years Consult date: 01/11/18 Requesting Physician: Gabo Holguin MD Primary Care Provider: Yonatan Aleman, - Consult Narrative Reason for consult: Anemia, Thrombocytopenia, Leukocytosis History of present illness: Ms. Orellana is a 67 year old female with multiple commorbidities significant for COPD on chronic 4 L of O2, end-stage renal disease on Monday dialysis, CAD status post CABG, hypothyroidism, leukocytosis and medical noncompliance She presented to the ER on 01/09/2018 for increased Edema and SOB. She has been admitted for ESRD, hyperkalemia, leukocytosis and was initially in A-Fib with RVR, since converted. Ms. Orellana had a recent hospital stay for pneumonia/COPD exacerbation requiring ICU admission. She tested positive for human metapneumovirus. Her was admitted as well around this same time and during his hospitalization. During patients prior admission we were consulted for leukocytosis and the finding of blasts per tech review of her smear. Pathology review and oncology review of the smear did not identify any blasts. A peripheral flow was sent as well which was negative for B-Cell or T-Cell abnormality. Her leukocytosis was thought to be secondary to her known infection at that time. It appears as thought she did not attend follow up with our clinic. Ms. Dill denies recent fever, chills night sweats or appetite changes. She does report recent weight loss but is unable to tell me how much or over what period of time. She has generalized weakness but no changes recently in her activity. She reports being quite independent at home and able to carry out her ADL's. She lives at home with her son and daughter in law. She has smoked since the age of 17, at most 2-3 PPD, recently cut back to about 6 cigarettes per day. She has COPD and is on O2 at 4L chronically. Past Med Surg Social Fam HX - Past Medical History Medical history: arthritis, dialysis, hyperlipidemia, hypertension, renal disease, thyroid disease Additional medical history: Dialysis M-W-F Psychiatric history: anxiety, depression - Past Surgical History Surgical History: coronary bypass (CABG), other (Left arm dialysis shunt) Additional surgical history: kidney stents. DIALYSIS SHUNT left arm - Social History Smoking Status: Current every day smoker Smokeless Tobacco Status: No Alcohol use: none Drug use: none - Family History Brother Family Member Ethnicity: Unknown Hx Family Cardiac Disorders: Yes (one brother passed sudden heart attack) Mother Living Status: Hx Family Cancer: Yes (lung cancer) Father Living Status: Hx Family Cancer: Yes (lung cancer) Constitutional: Present: anorexia, fatigue, weakness, weight loss. Absent: chills, fever(s), night sweats Additional comments: reports weight loss but is unable to give amount Eyes: Absent: change in vision Nose, mouth and throat: Absent: dysphagia Cardiovascular: Absent: chest pain Respiratory: Present: cough, dyspnea. Absent: hemoptysis Additional comments: chronic O2 at 4L Gastrointestinal: Absent: abdominal pain, change in bowel habits, nausea, vomiting Genitourinary: Present: as per HPI Musculoskeletal: Present: muscle weakness Integumentary: Absent: rash, wounds Neurological: Absent: focal weakness, frequent falls Psychiatric: Present: as per HPI Hematologic/Lymphatic: Present: as per HPI Oncology - Exam - Constitutional Vitals: Temp Pulse Resp BP Pulse Ox 99.1 F 86 17 165/88 95 01/11/18 14:15 01/11/18 16:00 01/11/18 16:00 01/11/18 16:20 01/11/18 16:00 General appearance: no acute distress, no febrile - Head Head exam: Present: atraumatic - ENT ENT exam: Present: mucous membranes moist - Respiratory Respiratory exam: Present: decreased breath sounds, CTAB. Absent: respiratory distress - GI/Abdominal GI/Abdominal exam: Present: normal bowel sounds, soft. Absent: guarding, rebound, tenderness - Extremities Exam Extremities exam: Present: normal inspection. Absent: calf tenderness - Neurological Exam Neurological exam: Present: alert, oriented X3, no focal deficits, strengths equal and symetr throughout - Psychiatric Psychiatric exam: Present: depressed, flat affect Additional comments: makes no eye contact, does not engage in conversation - Skin Skin exam: Present: dry, intact, normal color, warm Oncology - Results Labs: 3 01/11/18 01/11/18 01/11/18 11:03 11:03 11:03 WBC RBC Hgb Hct MCV MCH MCHC RDW Plt Count MPV Immature Gran % Seg Neutrophils % Lymphocytes % Monocytes % Eosinophils % Basophils % Neutrophils # Lymphocytes # Monocytes # Eosinophils # Basophils # Nucleated RBCs/100 WBC Platelet Estimate Immature Plt Fraction Polychromasia Anisocytosis Smear Path Review PT INR APTT Fibrinogen 252 Sodium Potassium Chloride Carbon Dioxide BUN Creatinine Est GFR ( Amer) Est GFR (Non-Af Amer) BUN/Creatinine Ratio Glucose POC Glucose Calculated Osmolality Lactic Acid Calcium Magnesium Iron 41 L % Saturation 27 Transferrin 109 L Ferritin > 1500 H Lactate Dehydrogenase 338 H Troponin I Vitamin B12 565 Folate > 22.3 H TSH Blood Type Antibody Screen MAINE, Poly Interpret 3 01/11/18 01/11/18 01/11/18 11:03 04:14 04:14 WBC 13.1 H RBC 2.63 L Hgb 8.4 L Hct 27.7 L MCV 105.3 H MCH 31.9 MCHC 30.3 L RDW 17.1 H Plt Count 37 L MPV 10.5 Immature Gran % 4.5 H Seg Neutrophils % 89.4 Lymphocytes % 2.8 Monocytes % 3.1 Eosinophils % 0.0 Basophils % 0.2 Neutrophils # 11.7 H Lymphocytes # 0.4 L Monocytes # 0.4 Eosinophils # 0.0 Basophils # 0.0 Nucleated RBCs/100 WBC 0.2 H Platelet Estimate Immature Plt Fraction Polychromasia Anisocytosis Smear Path Review See Below PT INR APTT Fibrinogen Sodium 141 Potassium 5.9 H D Chloride 98 Carbon Dioxide 27 BUN 80 H Creatinine 7.09 H Est GFR ( Amer) 7 L Est GFR (Non-Af Amer) 6 L BUN/Creatinine Ratio 11 Glucose 101 POC Glucose Calculated Osmolality 316 H Lactic Acid Calcium 8.7 Magnesium 2.1 Iron % Saturation Transferrin Ferritin Lactate Dehydrogenase Troponin I Vitamin B12 Folate TSH Blood Type Antibody Screen MAINE, Poly Interpret 3 01/10/18 01/10/18 01/10/18 19:44 18:48 18:44 WBC RBC Hgb Hct MCV MCH MCHC RDW Plt Count MPV Immature Gran % Seg Neutrophils % Lymphocytes % Monocytes % Eosinophils % Basophils % Neutrophils # Lymphocytes # Monocytes # Eosinophils # Basophils # Nucleated RBCs/100 WBC Platelet Estimate Immature Plt Fraction Polychromasia Anisocytosis Smear Path Review PT INR APTT Fibrinogen Sodium Potassium Chloride Carbon Dioxide BUN Creatinine Est GFR ( Amer) Est GFR (Non-Af Amer) BUN/Creatinine Ratio Glucose POC Glucose 115 H Calculated Osmolality Lactic Acid 0.7 Calcium Magnesium Iron % Saturation Transferrin Ferritin Lactate Dehydrogenase Troponin I Vitamin B12 Folate TSH Blood Type A NEGATIVE Antibody Screen NEGATIVE MA[place], Poly Interpret NEG 3 01/10/18 01/10/18 01/10/18 16:47 16:47 16:47 WBC 17.7 H RBC 3.05 L Hgb 9.7 L Hct 31.3 L MCV 102.6 H MCH 31.8 MCHC 31.0 L RDW 16.9 H Plt Count 44 L MPV 10.9 Immature Gran % Seg Neutrophils % Lymphocytes % Monocytes % Eosinophils % Basophils % Neutrophils # Lymphocytes # Monocytes # Eosinophils # Basophils # Nucleated RBCs/100 WBC Platelet Estimate Immature Plt Fraction 5.4 Polychromasia Anisocytosis Smear Path Review PT 12.2 H INR 1.1 APTT 21.8 L Fibrinogen Sodium 141 Potassium 4.7 Chloride 98 Carbon Dioxide 29 BUN 70 H Creatinine 6.46 H Est GFR ( Amer) 8 L Est GFR (Non-Af Amer) 6 L BUN/Creatinine Ratio 11 Glucose 126 H POC Glucose Calculated Osmolality 314 H Lactic Acid Calcium 8.5 L Magnesium 2.1 Iron % Saturation Transferrin Ferritin Lactate Dehydrogenase Troponin I Vitamin B12 Folate TSH 0.167 L Blood Type Antibody Screen MAINE, Poly Interpret 3 01/10/18 01/10/18 01/10/18 11:38 11:24 08:17 WBC RBC Hgb Hct MCV MCH MCHC RDW Plt Count MPV Immature Gran % Seg Neutrophils % Lymphocytes % Monocytes % Eosinophils % Basophils % Neutrophils # Lymphocytes # Monocytes # Eosinophils # Basophils # Nucleated RBCs/100 WBC Platelet Estimate Immature Plt Fraction Polychromasia Anisocytosis Smear Path Review PT INR APTT Fibrinogen Sodium Potassium Chloride Carbon Dioxide BUN Creatinine Est GFR ( Amer) Est GFR (Non-Af Amer) BUN/Creatinine Ratio Glucose POC Glucose 110 H 176 H Calculated Osmolality Lactic Acid Calcium Magnesium Iron % Saturation Transferrin Ferritin Lactate Dehydrogenase Troponin I 0.71 H* Vitamin B12 Folate TSH Blood Type Antibody Screen MAINE, Poly Interpret 3 01/10/18 01/10/18 01/10/18 05:29 05:29 05:29 WBC RBC Hgb Hct MCV MCH MCHC RDW Plt Count MPV Immature Gran % Seg Neutrophils % Lymphocytes % Monocytes % Eosinophils % Basophils % Neutrophils # Lymphocytes # Monocytes # Eosinophils # Basophils # Nucleated RBCs/100 WBC Platelet Estimate Immature Plt Fraction Polychromasia Anisocytosis Smear Path Review PT INR APTT Fibrinogen Sodium 141 141 Potassium 6.2 H 6.2 H Chloride 96 L 95 L Carbon Dioxide 23 24 BUN > 130 H > 130 H Creatinine 11.31 H 11.29 H Est GFR ( Amer) 4 L 4 L Est GFR (Non-Af Amer) 3 L 3 L BUN/Creatinine Ratio TNP TNP Glucose 171 H 172 H POC Glucose Calculated Osmolality TNP TNP Lactic Acid Calcium 9.1 9.2 Magnesium 2.6 Iron % Saturation Transferrin Ferritin Lactate Dehydrogenase Troponin I 0.28 H* Vitamin B12 Folate TSH Blood Type Antibody Screen MAINE, Poly Interpret 3 01/10/18 05:29 WBC 17.2 H RBC 3.01 L Hgb 9.9 L Hct 31.6 L MCV 105.0 H MCH 32.9 MCHC 31.3 L RDW 16.6 H Plt Count 48 L MPV 10.4 Immature Gran % 6.1 H Seg Neutrophils % 88.7 Lymphocytes % 1.2 Monocytes % 3.8 Eosinophils % 0.0 Basophils % 0.2 Neutrophils # 15.3 H Lymphocytes # 0.2 L Monocytes # 0.7 Eosinophils # 0.0 Basophils # 0.0 Nucleated RBCs/100 WBC 0.6 H Platelet Estimate Decreased L Immature Plt Fraction 3.5 Polychromasia 1+ A Anisocytosis 1+ A Smear Path Review PT INR APTT Fibrinogen Sodium Potassium Chloride Carbon Dioxide BUN Creatinine Est GFR ( Amer) Est GFR (Non-Af Amer) BUN/Creatinine Ratio Glucose POC Glucose Calculated Osmolality Lactic Acid Calcium Magnesium Iron % Saturation Transferrin Ferritin Lactate Dehydrogenase Troponin I Vitamin B12 Folate TSH Blood Type Antibody Screen MAINE, Poly Interpret
[2018-01-11] MEDS: Budesonide/Formoterol 80/4.5 MDI IH SCH (19:37)
[2018-01-11] MEDS ORDERED: traZODone 50 MG TABLET PO SCH (21:00)
[2018-01-11] MEDS: traZODone 50 MG TABLET PO SCH (21:24)
[2018-01-12] MEDS: Ipratropium/Albuterol Neb 3 ML IH SCH (03:46)
[2018-01-12] MEDS: Levalbuterol 1 PUFF INHALER IH SCH ×7 (03:47→23:40)
[2018-01-12 06:20] LABS: Basophils % 0.1 %; Mean Corpuscular Volume 101.5 fL (83.0-100.0); Nucleated Red Blood Cells 0.2 /100 WBC (0); Red Cell Distribution Width 16.2 % (11.5-14.5)
[2018-01-12 06:22] LABS: Hemoglobin 8.5 g/dL (11.5-15.4); Immature Platelets 4.2 % (1.1-6.1); Lymphocytes # 0.3 K/mcL (0.6-4.6); Lymphocytes % 3.6 %; Mean Corpuscular HGB Conc 31.5 g/dL (31.6-35.5); Mean Platelet Volume 10.4 fL (9.4-12.4); Monocytes # 0.3 K/mcL (0.0-1.3); Monocytes % 3.9 %; Neutrophils # 7.5 K/mcL (1.6-8.9); Platelet Count 33 K/mcL (140-400); Red Blood Count 2.66 M/mcL (3.82-4.97); Segmented Neutrophils % 88.4 %
[2018-01-12 06:41] LABS: Calcium 8.7 mg/dL (8.6-10.3); Potassium 4.8 mEq/L (3.5-5.1)
[2018-01-12 06:58] LABS: Triiodothyronine (T3) Free 1.89 pg/mL (2.50-3.90)
[2018-01-12 07:08] LABS: Hepatitis A Antibody IgM Nonreactive (Nonreactive); Hepatitis B Core IgM Nonreactive (Nonreactive); Hepatitis B Surface Antigen Nonreactive (Nonreactive); Hepatitis C Virus Antibody Nonreactive (Nonreactive)
[2018-01-12] MEDS ORDERED: Levalbuterol 1 PUFF INHALER IH PRN (07:13)
[2018-01-12] MEDS: Budesonide/Formoterol 80/4.5 MDI IH SCH ×2 (07:33→19:30)
[2018-01-12] MEDS: Folic Acid 1 MG TABLET PO SCH (07:54)
[2018-01-12] MEDS: Renal Vitamin 1 MG CAPSULE PO SCH (07:55)
--- NOTE | 2018-01-12 08:04 | Internal Med Progress Note ---
Date of Encounter: 01/12/18 Time of Encounter: 12:11 - Assessment and plan (1) CAD (coronary artery disease) Current Visit: Yes Status: Chronic Assessment and plan: Continue statin, not on ASA Qualifiers: Qualified Code(s): I25.709 - Atherosclerosis of coronary artery bypass graft( s), unspecified, with unspecified angina pectoris (2) COPD (chronic obstructive pulmonary disease) Current Visit: Yes Status: Chronic Assessment and plan: Continue O2 support. On chronic O2. Continue home inhalers, not in exacerbation, duonebs prn Qualifiers: Qualified Code(s): J43.9 - Emphysema, unspecified (3) DVT prophylaxis Current Visit: Yes Status: Acute Assessment and plan: SCDs (4) Hypothyroidism Current Visit: Yes Status: Chronic Assessment and plan: TSH 0.167, check free T3 and T4, hold synthroid for now, patient had Afib with RVR. free T3 1.89, free T4 WNL Qualifiers: Qualified Code(s): E03.9 - Hypothyroidism, unspecified (5) Depression with anxiety Current Visit: Yes Status: Chronic Assessment and plan: Continue home medications. The patient seems down and depressed. She denies sicidal ideation, continue citaloparm, continue low dose trazodone (6) Leukocytosis Current Visit: Yes Status: Acute Assessment and plan: Resolved The patient had bandemia, no signs of infection. She has no signs of infection. She denies any fevers or cough. She did have leukocytosis on her previous admission and at that time blasts were seen and she was supposed to follow up with hematology. Not sure sure that she followed up. oncology following The patient does not have a history of noncompliance. We will monitor for now. No need for antibiotics. Qualifiers: Qualified Code(s): D72.825 - Bandemia (7) Diastolic CHF Current Visit: Yes Status: Acute Assessment and plan: She has fluid overload due to not going to HD for several days Continue HD, continue home meds Continue BB and statin, not on lasix Qualifiers: Qualified Code(s): I50.32 - Chronic diastolic (congestive) heart failure (8) Elevated troponin Current Visit: Yes Status: Acute Assessment and plan: Due to demand ischemia , worsened by RVR, in the setting of Afib, ESRD , no intervention. (9) End stage renal disease Current Visit: Yes Status: Chronic Assessment and plan: With hyperkalemia, not complaint with HD Consider SW eval prior to discharge, HD scheduled per renal electrolytes today WNL (10) Hyperkalemia Current Visit: Yes Status: Acute Assessment and plan: Resolved (11) New onset atrial fibrillation Current Visit: Yes Status: Acute Assessment and plan: Newly diagnosed Afib/flutter with RVR Required multipel agents including cardizem/metoprolol/ Converted with amio Not on any drips/infusions at time of review TSH low normal, check Free T3 and Fercho T4 Not a candidate for a/c, cardio following Chem acceptable Continue metoprolol po, titrate prn hemodynamically stable at this time, cardio eval noted (12) Metastases to the liver Current Visit: Yes Status: Acute Assessment and plan: Possibly from a lung primary Oncology following No biopsies done yet (13) Lung mass Current Visit: Yes Status: Acute Assessment and plan: Lung mass , new finding, possible mets to the vertebra and liver Pulm consulted - Time Spent With Patient Total time spent is greater than 50% in coordination of care (as documented) at patient's floor/unit and/or counseling patient: - Subjective Interval history: Seen and evaluated at the bedside 67 F with PMH of ESRD on HD, non-complaint, depression , Chronic resp failure on home O2, COPD, CAD She was admitted for hyperkalemia but developed newly diagnosed afib with RVR requiring multiple agents She was seen in the ICU has converted to sinus rhythm since overnight , she is no longer on amiodarone She is not a candidate for anticoagulation due to thrombocytopenia and hx of GIB She seems cheerful this mrn, and denies any new complains, no CP, no SOB She agrees to being depressed and agrees to trial of trazodone, she is not suicidal 01/12 new lung mass with liver and spine mets Pulmonology consulted, oncology following Seen and evaluated during HD, no new complains Understands the findings of new lesions and lung mass - Constitutional Vitals: Temp Pulse Resp BP Pulse Ox 98.4 F 95 16 163/80 90 01/12/18 06:53 01/12/18 06:53 01/12/18 06:53 01/12/18 06:53 01/12/18 06:53 General appearance: Present: A&O X 3, pleasant, no acute distress - Head Head exam: Present: atraumatic, normocephalic - Eye Eye exam: Present: PERRL, conjuntiva pink, sclera anicteric Pupils: Present: PERRL - Neck Neck exam general surgery: Present: supple, trachea midline. Absent: lymphadenopathy - Respiratory Respiratory exam: Present: CTAB. Absent: accessory muscle use, rales, rhonchi, wheezes - Cardiovascular Cardiovascular exam: Present: RRR, +S1, +S2. Absent: diastolic murmur, gallop, rubs, systolic murmur - GI/Abdominal GI/Abdominal exam: Present: normal bowel sounds, soft, no peritoneal signs. Absent: distended, tenderness - Extremities Exam Extremities exam: Present: warm, radial pulses palpable and symmetrical. Absent : calf tenderness, cyanotic, pedal edema - Neurological Exam Neurological exam: Present: alert, CN II-XII intact, oriented X3, no focal deficits. Absent: pronater drift, facial droop, speech deficit - Skin Skin exam: Present: dry, intact Internal Medicine: Result - Labs CBC & Chem 7: 01/12/18 06:02 01/12/18 06:02 Labs: Short CBC 01/12/18 Range/Units 06:02 WBC 8.5 (4.3-11.1) K/mcL Hgb 8.5 L (11.5-15.4) g/dL Hct 27.0 L (35.3-44.9) % Plt Count 33 L (140-400) K/mcL Neutrophils # 7.5 (1.6-8.9) K/mcL BMP 01/12/18 06:02 Sodium 138 Potassium 4.8 Chloride 98 Carbon Dioxide 28 BUN 52 H Creatinine 5.28 H Glucose 114 H Calcium 8.7 - ABG Interpretation ABG results: PT/INR, D-dimer PT 12.2 Seconds (9.4-12.1) H 01/10/18 16:47 - Impressions Impressions Abdomen/Pelvis CT 01/11/18 17:39 IMPRESSION: Interval development of a new lobulated masslike opacity within the right middle lobe, with enlarged mediastinal lymph nodes. Development of multiple low-density lesions within the hepatic parenchyma compatible with diffuse metastatic disease. Evidence of bony metastatic disease within the T10 vertebral body. As seen on the previous examination, there is a very irregular, lobulated abdominal aortic aneurysm measuring up to 5.9 cm, which appears basically unchanged in size. Again, there is fat stranding adjacent to that aneurysm, mainly posteriorly, but that appears similar when compared to the previous exam. This may be from a previous episode of leakage. Given that is unchanged, definite acute leakage is not seen. Multiple reticulonodular densities within the lungs bilaterally. Although these could be inflammatory in the setting of pneumonia/ bronchiolitis, lymphangitic carcinomatosis must be considered as well. More focal areas of consolidation are identified adjacent to the major fissure on the left, and within the inferior aspect of the right hepatic lobe, and these may represent atelectasis versus pneumonia. Diffuse anasarca, with subcutaneous edema. There is more focal fluid seen within the subcutaneous fat involving the anterior right thigh. Correlate with any clinical evidence of cellulitis/abscess versus hematoma. Bilateral nephrolithiasis. Renal cortical atrophy. Diverticulosis without CT evidence of diverticulitis. D/ / Peter Morales MD / Peter Morales MD Interpreting Provider: Peter Morales MD Chest CT 01/11/18 17:53 IMPRESSION: Interval development of a new lobulated masslike opacity within the right middle lobe, with enlarged mediastinal lymph nodes. Development of multiple low-density lesions within the hepatic parenchyma compatible with diffuse metastatic disease. Evidence of bony metastatic disease within the T10 vertebral body. As seen on the previous examination, there is a very irregular, lobulated abdominal aortic aneurysm measuring up to 5.9 cm, which appears basically unchanged in size. Again, there is fat stranding adjacent to that aneurysm, mainly posteriorly, but that appears similar when compared to the previous exam. This may be from a previous episode of leakage. Given that is unchanged, definite acute leakage is not seen. Multiple reticulonodular densities within the lungs bilaterally. Although these could be inflammatory in the setting of pneumonia/ bronchiolitis, lymphangitic carcinomatosis must be considered as well. More focal areas of consolidation are identified adjacent to the major fissure on the left, and within the inferior aspect of the right hepatic lobe, and these may represent atelectasis versus pneumonia. Diffuse anasarca, with subcutaneous edema. There is more focal fluid seen within the subcutaneous fat involving the anterior right thigh. Correlate with any clinical evidence of cellulitis/abscess versus hematoma. Bilateral nephrolithiasis. Renal cortical atrophy. Diverticulosis without CT evidence of diverticulitis. D/ / Peter Morales MD / Peter Morales MD Interpreting Provider: Peter Morales MD - VTE Documentation of Mechanical Device: Intermittent pneumatic compression device Consult Discharge Plan - Plan Referrals: Yonatan Aleman DO [Primary Care Provider] -
--- NOTE | 2018-01-12 08:33 | Pulmonology Consult Note ---
<Yayo Alvarez - Last Filed: 01/12/18 11:56> Date of Encounter: 01/12/18 Time of Encounter: 08:33 Assessment and Plan (1) Acute respiratory failure Current Visit: No Status: Acute 1. Multi-factorial but suspected from volume overload due to missing dialysis which has now improved her symptoms 2. Her chronic COPD is being managed with her home medications and patient seems to be about baseline from what she said 3. Concerning development of lung/liver masses and vertebral body lesions 4. Would recommend further oncology evaluation and consider bone marrow versus liver biopsy. 5. Continue current symptomatic treatment Qualifiers: Respiratory failure complication: unspecified whether with hypoxia or hypercapnia Qualified Code(s): J96.00 - Acute respiratory failure, unspecified whether with hypoxia or hypercapnia (2) Lung mass Current Visit: Yes Status: Acute 1. Concerning for malignancy especially with suspected mets to liver and bone 2. would be technically easier to get biopsy from bone or liver for identification/staging, etc 3. Do not think mass was contributing to her shortness of breath 4. Continue current symptomatic care (3) Metastases to the liver Current Visit: Yes Status: Acute 1. Newly developed and found on CT, oncology following for further workup/ management History of Present Illness Consult date: 01/12/18 Requesting physician: Andrés Hodges Reason for consult: lung mass Chief complaint: dyspnea History of present illness: Patient presented to the ED on 01/09 with the complaints of cough and shortness of breath. Patient has a h/o O2 dependent COPD, on 4LPM at all times. Also has a h/o ESRD on dialysis MWF who missed her last 2 dialysis sessions. No previous history of malignancy. She now reports that she is feeling much better and is now back on her MWF dialysis schedule. CT C/A/P showed a mildly dilated thoracic aorta at 4.2cm and an enlarged pulmonary artery c/w PAH but more concerning that there is a lobulated masslike structure in the RML with a quite large lymphnode in the carinal area. There are also significant diffuse liver abnormalities concerning for metasatic disease and a new T10 vertebral body lesion. The patient has no complaints of increasing shortness of breath or cough at this time. She denies fever, chest pain, abdominal pain, nausea, vomiting or diarrhea. Past Med Surg Social Fam HX - Past Medical History Medical history: arthritis, dialysis, hyperlipidemia, hypertension, renal disease, thyroid disease Additional medical history: Dialysis M-W-F Psychiatric history: anxiety, depression - Past Surgical History Surgical History: coronary bypass (CABG), other (Left arm dialysis shunt) Additional surgical history: kidney stents. DIALYSIS SHUNT left arm - Social History Smoking Status: Current every day smoker Smokeless Tobacco Status: No Alcohol use: none Drug use: none - Family History Brother Family Member Ethnicity: Unknown Hx Family Cardiac Disorders: Yes (one brother passed sudden heart attack) Mother Living Status: Hx Family Cancer: Yes (lung cancer) Father Living Status: Hx Family Cancer: Yes (lung cancer) Medications and Allergies Atorvastatin [Lipitor] 40 mg PO HS 06/02/15 [History] Levothyroxine [Synthroid] 200 mcg PO QAM 06/02/15 [History] OxyCODONE Immed Rel [Roxicodone 10 MG] 10 mg PO Q6H PRN 06/02/15 [History] Docusate [Colace] 100 mg PO BID PRN 09/22/15 [History] B Complex with Vitamin C [Mary [place]-Bee with C] 1 tab PO DAILY 02/22/16 [History] Sevelamer [Renvela] 1,600 mg PO TIDWM 08/29/16 [History] Fluticasone/Salmeterol [Advair Hfa 115-21 Mcg Inhaler] 2 puff IH BID 11/14/16 [ History] Ipratropium/Albuterol Neb [Duoneb] 3 ml IH QID PRN 11/14/16 [History] Renal Vitamin [Renal Caps Softgel] 1 mg PO DAILY 11/14/16 [History] Umeclidinium Cotton [Incruse Ellipta] 62.5 mcg IH DAILY 11/12/17 [History] Albuterol Sulfate [Proair Hfa] 2 puff IH Q4-6H PRN 01/10/18 [History] Citalopram Hydrobromide [Celexa] 20 mg PO DAILY 01/10/18 [History] Folic Acid 1 mg PO DAILY 01/10/18 [History] Metoprolol [Lopressor] 12.5 mg PO BID 01/10/18 [History] Omeprazole [PriLOSEC] 40 mg PO DAILY 01/10/18 [History] 3 Allergy/AdvReac Type Severity Reaction Status Date / Time ceftriaxone [From Rocephin] Allergy Hives Verified 01/09/18 21:52 levofloxacin [From Levaquin] Allergy Hives Verified 01/09/18 21:52 All Systems: The remainder of the systems were reviewed and are negative Review of Systems: As reviewed in the HPI. All other systems reviewed are negative or normal. Physical Examination Vital Signs: Vital Signs, Last 4 Hours Temp Pulse Resp BP Pulse Ox 01/12/18 06:53 98.4 F 95 16 163/80 90 General appearance: no acute distress, alert Eyes: nonicteric ENT: oropharynx moist Neck: supple Effort: normal Inspection: normal Auscultation: bilateral: wheezes (end exp) Cardiovascular: regular rate and rhythm, murmur noted (systolic) Gastrointestinal: normoactive bowel sounds, soft, non-distended Integumentary: normal Extremities: no clubbing, pink and warm, edema Musculoskeletal: no deformities, ROM normal normal mental status mood appropriate, affect normal Results - Laboratory Findings CBC and BMP: 01/12/18 06:02 01/12/18 06:02 PT/INR, D-dimer PT 12.2 Seconds (9.4-12.1) H 01/10/18 16:47 Abnormal lab findings: Abnormal lab results RBC 2.66 M/mcL (3.82-4.97) L 01/12/18 06:02 Hgb 8.5 g/dL (11.5-15.4) L 01/12/18 06:02 Hct 27.0 % (35.3-44.9) L 01/12/18 06:02 MCV 101.5 fL (83.0-100.0) H 01/12/18 06:02 MCHC 31.5 g/dL (31.6-35.5) L 01/12/18 06:02 RDW 16.2 % (11.5-14.5) H 01/12/18 06:02 Plt Count 33 K/mcL (140-400) L 01/12/18 06:02 Band Neutrophils % 6.0 % (0-4) H 01/09/18 22:40 Lymphocytes # 0.3 K/mcL (0.6-4.6) L 01/12/18 06:02 Nucleated RBCs/100 WBC 0.2 /100 WBC (0) H 01/12/18 06:02 Platelet Estimate Decreased (Normal) L 01/10/18 05:29 Polychromasia 1+ (Not Present) A 01/10/18 05:29 Anisocytosis 1+ (Not Present) A 01/10/18 05:29 PT 12.2 Seconds (9.4-12.1) H 01/10/18 16:47 APTT 21.8 Seconds (26.0-36.0) L 01/10/18 16:47 BUN 52 mg/dL (8-23) H 01/12/18 06:02 Creatinine 5.28 mg/dL (0.60-1.20) H 01/12/18 06:02 Est GFR ( Amer) 10 (> 60) L 01/12/18 06:02 Est GFR (Non-Af Amer) 8 (> 60) L 01/12/18 06:02 Glucose 114 mg/dL (70-105) H 01/12/18 06:02 POC Glucose 115 mg/dL (70-99) H 01/10/18 19:44 Calculated Osmolality 301 (280-300) H 01/12/18 06:02 Iron 41 mcg/dL (50-170) L 01/11/18 11:03 Transferrin 109 mg/dL (203-362) L 01/11/18 11:03 Ferritin > 1500 ng/mL (10-120) H 01/11/18 11:03 Alkaline Phosphatase 116 Units/L (34-104) H 01/09/18 22:40 Lactate Dehydrogenase 338 Units/L (140-271) H 01/11/18 11:03 Troponin I 0.71 ng/mL (< 0.04) H* 01/10/18 11:38 Serum Total Protein 5.8 g/dL (6.4-8.9) L 01/09/18 22:40 Globulin 2.2 g/dL (2.4-3.5) L 01/09/18 22:40 Folate > 22.3 ng/mL (3.0-16.0) H 01/11/18 11:03 TSH 0.167 mcIU/mL (0.340-5.600) L 01/10/18 16:47 Free T3 1.89 pg/mL (2.50-3.90) L 01/12/18 06:02 - Microbiology Findings Microbiology Findings: Microbiology, Last 48 Hours 01/10/18 18:44 Blood Culture - Preliminary Peripheral Venipuncture No growth. 01/10/18 18:44 Blood Culture - Preliminary Peripheral Venipuncture No growth. - Clinical Findings Intake & Output: Intake & Output 01/11/18 01/12/18 01/12/18 23:59 07:59 15:59 Output Total 600 / 600 Balance -600 / -600 Weight 59.421 kg Consult Discharge Plan - Plan Referrals: Yonatan Aleman DO [Primary Care Provider] - <Aubrey Liriano - Last Filed: 01/12/18 13:15> Date of Encounter: 01/12/18 All Systems: The remainder of the systems were reviewed and are negative Physical Examination Vital Signs: Vital Signs, Last 4 Hours Temp Resp BP 01/12/18 12:55 144/80 01/12/18 12:40 151/74 01/12/18 12:25 151/77 01/12/18 12:10 148/80 01/12/18 11:55 160/74 01/12/18 11:40 158/74 01/12/18 11:25 169/79 01/12/18 11:10 171/83 01/12/18 10:55 177/84 01/12/18 10:40 97.9 F 18 181/82 Results - Laboratory Findings CBC and BMP: 01/12/18 06:02 01/12/18 06:02 PT/INR, D-dimer PT 12.2 Seconds (9.4-12.1) H 01/10/18 16:47 Abnormal lab findings: Abnormal lab results RBC 2.66 M/mcL (3.82-4.97) L 01/12/18 06:02 Hgb 8.5 g/dL (11.5-15.4) L 01/12/18 06:02 Hct 27.0 % (35.3-44.9) L 01/12/18 06:02 MCV 101.5 fL (83.0-100.0) H 01/12/18 06:02 MCHC 31.5 g/dL (31.6-35.5) L 01/12/18 06:02 RDW 16.2 % (11.5-14.5) H 01/12/18 06:02 Plt Count 33 K/mcL (140-400) L 01/12/18 06:02 Band Neutrophils % 6.0 % (0-4) H 01/09/18 22:40 Lymphocytes # 0.3 K/mcL (0.6-4.6) L 01/12/18 06:02 Nucleated RBCs/100 WBC 0.2 /100 WBC (0) H 01/12/18 06:02 Platelet Estimate Decreased (Normal) L 01/10/18 05:29 Polychromasia 1+ (Not Present) A 01/10/18 05:29 Anisocytosis 1+ (Not Present) A 01/10/18 05:29 PT 12.2 Seconds (9.4-12.1) H 01/10/18 16:47 APTT 21.8 Seconds (26.0-36.0) L 01/10/18 16:47 BUN 52 mg/dL (8-23) H 01/12/18 06:02 Creatinine 5.28 mg/dL (0.60-1.20) H 01/12/18 06:02 Est GFR ( Amer) 10 (> 60) L 01/12/18 06:02 Est GFR (Non-Af Amer) 8 (> 60) L 01/12/18 06:02 Glucose 114 mg/dL (70-105) H 01/12/18 06:02 POC Glucose 112 mg/dL (70-99) H 01/12/18 03:31 Calculated Osmolality 301 (280-300) H 01/12/18 06:02 Iron 41 mcg/dL (50-170) L 01/11/18 11:03 Transferrin 109 mg/dL (203-362) L 01/11/18 11:03 Ferritin > 1500 ng/mL (10-120) H 01/11/18 11:03 Alkaline Phosphatase 116 Units/L (34-104) H 01/09/18 22:40 Lactate Dehydrogenase 338 Units/L (140-271) H 01/11/18 11:03 Troponin I 0.71 ng/mL (< 0.04) H* 01/10/18 11:38 Serum Total Protein 5.8 g/dL (6.4-8.9) L 01/09/18 22:40 Globulin 2.2 g/dL (2.4-3.5) L 01/09/18 22:40 Folate > 22.3 ng/mL (3.0-16.0) H 01/11/18 11:03 TSH 0.167 mcIU/mL (0.340-5.600) L 01/10/18 16:47 Free T3 1.89 pg/mL (2.50-3.90) L 01/12/18 06:02 - Microbiology Findings Microbiology Findings: Microbiology, Last 48 Hours 01/10/18 18:44 Blood Culture - Preliminary Peripheral Venipuncture No growth. 01/10/18 18:44 Blood Culture - Preliminary Peripheral Venipuncture No growth. - Clinical Findings Intake & Output: Intake & Output 01/11/18 01/12/18 01/12/18 23:59 07:59 15:59 Intake Total 600 / 600 Output Total 600 / 600 Balance -600 / -600 600 / 600 Weight 59.421 kg - Attending Attestation I examined this patient and my medical decision-making was reviewed with the Resident Physician. I agree with the documented findings, disposition and treatment plan as described except to the extent set forth below. Patient seen and examined. Labs, radiology, chart personally reviewed. 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 Due to her multiple comorbidities biopsy of other sites such as bone or liver may be less risky. If bronchoscopy is needed to be done, if oncology felt that to be done, then clearance from cardiology needs to be done first. There is evidence of mediastinal adenopathy and biopsy with a possible EBUS bronchoscopy as possible. This is explained to the patient and thank you very much for consultation. Please call for any questions.
--- NOTE | 2018-01-12 08:44 | Electrocardiograph Report ---
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
[2018-01-12] MEDS ORDERED: 0.9 % Sodium Chloride 250 ML IVC PRN (09:10)
--- NOTE | 2018-01-12 09:24 | Nephrology Progress Note ---
Date of Encounter: 01/12/18 Time of Encounter: 08:55 - Assessment and Plan (1) End stage renal disease Current Visit: No Status: Chronic HD today, keeping MWF schedule. Orders given. Subjective Interval history: Sleeping, arouses easily. Denies KASEY, no new complaints. Objective - Vital Signs Vital signs: Vital Signs Temp Pulse Resp BP Pulse Ox 01/12/18 06:53 98.4 F 95 16 163/80 90 01/12/18 03:26 99.4 F 88 16 160/72 91 01/11/18 23:50 98.0 F 82 16 156/67 94 01/11/18 19:38 18 98 01/11/18 18:49 98.6 F 95 18 164/52 97 01/11/18 16:38 98.6 F 20 165/88 01/11/18 16:20 165/88 01/11/18 16:15 166/84 01/11/18 16:00 86 17 166/80 95 01/11/18 15:45 168/85 01/11/18 15:33 22 96 01/11/18 15:30 156/89 01/11/18 15:15 161/75 01/11/18 15:00 71 164/75 01/11/18 14:45 161/75 01/11/18 14:30 159/74 01/11/18 14:15 99.1 F 16 161/74 01/11/18 14:00 82 18 161/74 95 01/11/18 12:02 98.4 F 01/11/18 12:00 89 18 160/72 93 01/11/18 11:00 84 14 161/72 94 01/11/18 10:00 80 18 149/70 94 Intake and Output 01/11/18 01/12/18 01/12/18 23:59 07:59 15:59 Output Total 600 / 600 Balance -600 / -600 Output: Urine 0 / 0 Total Dialysis (HD) Output 600 / 600 Other: Meal Lunch Percent of Meal Consumed 50% Stool Size Small Stool Consistency formed Stool Color Brown # Voids 1 Weight 59.421 kg Blood Glucose* 112 Hemodialysis Net Fluid Removed 0 (mL) Patient Weight 01/12/18 23:59 Weight 59.421 kg - General Appearance General appearance: Present: well-developed, well-nourished, appears started age EENT: Present: mucous membranes moist Neck: Present: no JVD Respiratory: Present: clear Cardiology: Present: edema, regular rate, regular rhythm Additional Comments: pedal Dialysis Vascular Access: Arteriovenous Fistula Gastrointestinal: Present: normoactive bowel sounds, no tenderness Integumentary: Present: warm and dry Neurologic: Present: alert and oriented x3 - Lab 01/12/18 06:02 01/12/18 06:02 Most recent lab results Calcium 8.7 mg/dL (8.6-10.3) 01/12/18 06:02 Magnesium 2.0 mg/dL (1.6-2.6) 01/12/18 06:02 - VTE Documentation of Mechanical Device: Intermittent pneumatic compression device Consult Discharge Plan - Plan Referrals: Yonatan Aleman DO [Primary Care Provider] -
--- NOTE | 2018-01-12 09:32 | Electrocardiograph Report ---
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
--- NOTE | 2018-01-12 09:38 | Electrocardiograph Report ---
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
[2018-01-12] MEDS ORDERED: 0.9 % Sodium Chloride 1,000 ML PRIME SCH (09:45)
[2018-01-12] MEDS ORDERED: Ondansetron 4 MG/2 ML VIAL IVP ONE (15:34)
--- NOTE | 2018-01-12 16:16 | Oncology Inp Progress Note ---
<Kaylen Stubbs L - Last Filed: 01/12/18 20:26> Date of Encounter: 01/12/18 Time of Encounter: 10:00 (1) Leukocytosis Current Visit: Yes Status: Acute Assessment and plan: Neutrophil predominant leukocytosis with bandemia. Peripheral flow negative for B-Cell or T-Cell abnormality. Blood smear-. The white count is increased with absolute neutrophilia. Mild anemia is present. Red blood cell count, hemoglobin and hematocrit are slightly decreased. MCV is increased. Microcytes, macrocytes, ovalocytes and rare schistocytes seen. The platelet count is decreased. Platelets are mostly small and granular. Leukocytes consists mostly of segmented neutrophils , lymphocytes , monocytes . Few immature granulocytes. Leukocytosis with absoulte/relative neutrophilia, bands and mild left shift, favor reactive process Malignancy may be playing role Qualifiers: Leukocytosis type: bandemia Qualified Code(s): D72.825 - Bandemia (2) Thrombocytopenia Current Visit: No Status: Acute Assessment and plan: Appears chronic and intermittent since 2014, acutely worsened. Patient is unable to have contrast due to kidney function. Abdomen/Pelvis CTA from 2017 notes splenomegaly. Imaging today reveals multiple liver lesions concerning for metastatic disease, potential lung primary (3) Lung mass Current Visit: Yes Status: Acute Assessment and plan: CT chest/abdomen/pelvis reveals findings concerning for potential primary lung carcinoma with finding of new lobulated masslike opacity within the right middle lobe, along with findings concerning innumerable liver metastases, bone metastases and mediastinal lymphadenopathy. Discussed CT findings concerning for malignancy with patient at bedside on two occasions today. Options given to proceed with biopsy for definitive diagnosis and treatment option discussion or palliative approach with consideration of hospice. Patient requesting biopsy and wishes to pursue treatment. She has a history of non-compliance and has cancelled prior appointment with our office and missed several dialysis treatments which led to her admission. Patient is aware that she needs to attend her dialysis sessions in order to receive chemotherapy/ immunotherapy treatments. At this time, will plan to pursue CT guided biopsy of liver lesion. Will order for Monday 01/15. If patient is discharged prior to this time we can pursue biopsy as an outpatient. NPO after MN for biopsy 01/15. IR would likely prefer platelet count >50-please administer platelets evening of 01/14 if needed. Please refer to Dr. Neal's attestation below for additional details. (4) Anemia in chronic kidney disease Current Visit: No Status: Chronic Assessment and plan: Hgb 8.4, slightly below baseline for patient. Multifactorial-Anemia of chronic disease, secondary to new findings suggestive of malignancy Macrocytosis She had an EGD with treatment of an oozing gastric ulcer during prior admission. She denies any s/s of bleeding such as hemoptysis, hematochezia or melena. Iron 41, 27% Ferritin >1500 B12 565 Folate >22 SPEP-pending LDH 338 [place]-negative Qualifiers: Chronic kidney disease stage: unspecified stage Qualified Code(s): N18.9 - Chronic kidney disease, unspecified; D63.1 - Anemia in chronic kidney disease; D63.1 - Anemia in chronic kidney disease Oncology: Subj Interval history: Ms. Orellana is currently in the dialysis suite. She denies pain, chest pain, nausea, vomiting, diarrhea, fevers/chills. - Constitutional Vitals: Vital Signs Temp Pulse Resp BP Pulse Ox 01/12/18 15:38 98.6 F 109 18 193/102 90 01/12/18 14:05 97.0 F L 18 172/88 01/12/18 13:40 142/81 01/12/18 13:25 156/81 01/12/18 13:10 143/80 01/12/18 12:55 144/80 01/12/18 12:40 151/74 01/12/18 12:25 151/77 01/12/18 12:10 148/80 01/12/18 11:55 160/74 01/12/18 11:40 158/74 01/12/18 11:25 169/79 01/12/18 11:10 171/83 01/12/18 10:55 177/84 01/12/18 10:40 97.9 F 18 181/82 01/12/18 06:53 98.4 F 95 16 163/80 90 01/12/18 03:26 99.4 F 88 16 160/72 91 01/11/18 23:50 98.0 F 82 16 156/67 94 01/11/18 19:38 18 98 01/11/18 18:49 98.6 F 95 18 164/52 97 01/11/18 16:38 98.6 F 20 165/88 01/11/18 16:20 165/88 Intake and Output 01/12/18 01/12/18 01/12/18 07:59 15:59 23:59 Intake Total 660 / 660 Output Total 0 / 0 Balance 660 / 660 Intake: Oral 60 / 60 Intake, Rinseback and Flushes 600 / 600 Output: Urine 0 / 0 Total Dialysis (HD) Output 0 / 0 Other: Meal Lunch Percent of Meal Consumed 25% Weight 59.421 kg Blood Glucose* 112 Hemodialysis Net Fluid Removed 2000 (mL) Patient Weight 01/12/18 23:59 Weight 59.421 kg General appearance: cooperative, no acute distress, no febrile - Head Head exam: Present: atraumatic - ENT ENT exam: Present: mucous membranes moist - Respiratory Respiratory exam: Present: decreased breath sounds. Absent: respiratory distress - Cardiovascular Cardiovascular exam: Present: RRR, +S1, +S2 - GI/Abdominal GI/Abdominal exam: Present: normal bowel sounds, soft. Absent: guarding, rebound, tenderness - Extremities Exam Extremities exam: Present: normal inspection. Absent: calf tenderness - Neurological Exam Neurological exam: Present: alert, oriented X3, no focal deficits, strengths equal and symetr throughout - Psychiatric Psychiatric exam: Present: flat affect - Skin Skin exam: Present: dry, intact, normal color, warm Oncology: Obj Data - Labs CBC & Chem 7: 01/12/18 06:02 01/12/18 06:02 - Impressions Impressions Abdomen/Pelvis CT 01/11/18 17:39 IMPRESSION: Interval development of a new lobulated masslike opacity within the right middle lobe, with enlarged mediastinal lymph nodes. Development of multiple low-density lesions within the hepatic parenchyma compatible with diffuse metastatic disease. Evidence of bony metastatic disease within the T10 vertebral body. As seen on the previous examination, there is a very irregular, lobulated abdominal aortic aneurysm measuring up to 5.9 cm, which appears basically unchanged in size. Again, there is fat stranding adjacent to that aneurysm, mainly posteriorly, but that appears similar when compared to the previous exam. This may be from a previous episode of leakage. Given that is unchanged, definite acute leakage is not seen. Multiple reticulonodular densities within the lungs bilaterally. Although these could be inflammatory in the setting of pneumonia/ bronchiolitis, lymphangitic carcinomatosis must be considered as well. More focal areas of consolidation are identified adjacent to the major fissure on the left, and within the inferior aspect of the right hepatic lobe, and these may represent atelectasis versus pneumonia. Diffuse anasarca, with subcutaneous edema. There is more focal fluid seen within the subcutaneous fat involving the anterior right thigh. Correlate with any clinical evidence of cellulitis/abscess versus hematoma. Bilateral nephrolithiasis. Renal cortical atrophy. Diverticulosis without CT evidence of diverticulitis. D/ / Peter Morales MD / Peter Morales MD Interpreting Provider: Peter Morales MD Chest CT 01/11/18 17:53 IMPRESSION: Interval development of a new lobulated masslike opacity within the right middle lobe, with enlarged mediastinal lymph nodes. Development of multiple low-density lesions within the hepatic parenchyma compatible with diffuse metastatic disease. Evidence of bony metastatic disease within the T10 vertebral body. As seen on the previous examination, there is a very irregular, lobulated abdominal aortic aneurysm measuring up to 5.9 cm, which appears basically unchanged in size. Again, there is fat stranding adjacent to that aneurysm, mainly posteriorly, but that appears similar when compared to the previous exam. This may be from a previous episode of leakage. Given that is unchanged, definite acute leakage is not seen. Multiple reticulonodular densities within the lungs bilaterally. Although these could be inflammatory in the setting of pneumonia/ bronchiolitis, lymphangitic carcinomatosis must be considered as well. More focal areas of consolidation are identified adjacent to the major fissure on the left, and within the inferior aspect of the right hepatic lobe, and these may represent atelectasis versus pneumonia. Diffuse anasarca, with subcutaneous edema. There is more focal fluid seen within the subcutaneous fat involving the anterior right thigh. Correlate with any clinical evidence of cellulitis/abscess versus hematoma. Bilateral nephrolithiasis. Renal cortical atrophy. Diverticulosis without CT evidence of diverticulitis. D/ / Peter Morales MD / Peter Morales MD Interpreting Provider: Peter Morales MD - ABG Interpretation ABG results: PT/INR, D-dimer PT 12.2 Seconds (9.4-12.1) H 01/10/18 16:47 Consult Discharge Plan - Plan Referrals: Yonatan Aleman DO [Primary Care Provider] - <Remi Neal - Last Filed: 01/12/18 20:57> Date of Encounter: 01/12/18 - Constitutional Vitals: Vital Signs Temp Pulse Resp BP Pulse Ox 01/12/18 19:38 98.6 F 114 18 188/89 92 01/12/18 17:48 186/90 01/12/18 15:49 18 90 01/12/18 15:38 98.6 F 109 18 193/102 90 01/12/18 14:05 97.0 F L 18 172/88 01/12/18 13:40 142/81 01/12/18 13:25 156/81 01/12/18 13:10 143/80 01/12/18 12:55 144/80 01/12/18 12:40 151/74 01/12/18 12:25 151/77 01/12/18 12:10 148/80 01/12/18 11:55 160/74 01/12/18 11:40 158/74 01/12/18 11:25 169/79 01/12/18 11:10 171/83 01/12/18 10:55 177/84 01/12/18 10:40 97.9 F 18 181/82 01/12/18 07:33 18 91 01/12/18 06:53 98.4 F 95 16 163/80 90 01/12/18 03:26 99.4 F 88 16 160/72 91 01/11/18 23:50 98.0 F 82 16 156/67 94 Intake and Output 01/12/18 01/12/18 01/13/18 08:59 16:59 00:59 Intake Total 660 / 660 Output Total 0 / 0 Balance 660 / 660 Intake: Oral 60 / 60 Intake, Rinseback and Flushes 600 / 600 Output: Urine 0 / 0 Total Dialysis (HD) Output 0 / 0 Other: Meal Lunch Percent of Meal Consumed 25% Weight 59.421 kg Blood Glucose* 112 Hemodialysis Net Fluid Removed 2000 (mL) Patient Weight 01/13/18 00:59 Weight 59.421 kg Oncology: Obj Data - Labs CBC & Chem 7: 01/12/18 06:02 01/12/18 06:02 Labs: Laboratory Results - last 24 hr 01/12/18 01/12/18 01/12/18 03:31 06:02 06:02 WBC 8.5 RBC 2.66 L Hgb 8.5 L Hct 27.0 L MCV 101.5 H MCH 32.0 MCHC 31.5 L RDW 16.2 H Plt Count 33 L MPV 10.4 Immature Gran % 4.0 Seg Neutrophils % 88.4 Lymphocytes % 3.6 Monocytes % 3.9 Eosinophils % 0.0 Basophils % 0.1 Neutrophils # 7.5 Lymphocytes # 0.3 L Monocytes # 0.3 Eosinophils # 0.0 Basophils # 0.0 Nucleated RBCs/100 WBC 0.2 H Immature Plt Fraction 4.2 Sodium 138 Potassium 4.8 Chloride 98 Carbon Dioxide 28 BUN 52 H Creatinine 5.28 H Est GFR ( Amer) 10 L Est GFR (Non-Af Amer) 8 L BUN/Creatinine Ratio 10 Glucose 114 H POC Glucose 112 H Calculated Osmolality 301 H Calcium 8.7 Magnesium 2.0 Free T4 Free T3 Hepatitis A IgM Ab Hep Bs Antigen Hep B Core IgM Ab Hepatitis C Ab Screen 01/12/18 01/12/18 06:02 06:02 WBC RBC Hgb Hct MCV MCH MCHC RDW Plt Count MPV Immature Gran % Seg Neutrophils % Lymphocytes % Monocytes % Eosinophils % Basophils % Neutrophils # Lymphocytes # Monocytes # Eosinophils # Basophils # Nucleated RBCs/100 WBC Immature Plt Fraction Sodium Potassium Chloride Carbon Dioxide BUN Creatinine Est GFR ( Amer) Est GFR (Non-Af Amer) BUN/Creatinine Ratio Glucose POC Glucose Calculated Osmolality Calcium Magnesium Free T4 0.79 Free T3 1.89 L Hepatitis A IgM Ab Nonreactive Hep Bs Antigen Nonreactive Hep B Core IgM Ab Nonreactive Hepatitis C Ab Screen Nonreactive - Impressions Impressions Abdomen/Pelvis CT 01/11/18 17:39 IMPRESSION: Interval development of a new lobulated masslike opacity within the right middle lobe, with enlarged mediastinal lymph nodes. Development of multiple low-density lesions within the hepatic parenchyma compatible with diffuse metastatic disease. Evidence of bony metastatic disease within the T10 vertebral body. As seen on the previous examination, there is a very irregular, lobulated abdominal aortic aneurysm measuring up to 5.9 cm, which appears basically unchanged in size. Again, there is fat stranding adjacent to that aneurysm, mainly posteriorly, but that appears similar when compared to the previous exam. This may be from a previous episode of leakage. Given that is unchanged, definite acute leakage is not seen. Multiple reticulonodular densities within the lungs bilaterally. Although these could be inflammatory in the setting of pneumonia/ bronchiolitis, lymphangitic carcinomatosis must be considered as well. More focal areas of consolidation are identified adjacent to the major fissure on the left, and within the inferior aspect of the right hepatic lobe, and these may represent atelectasis versus pneumonia. Diffuse anasarca, with subcutaneous edema. There is more focal fluid seen within the subcutaneous fat involving the anterior right thigh. Correlate with any clinical evidence of cellulitis/abscess versus hematoma. Bilateral nephrolithiasis. Renal cortical atrophy. Diverticulosis without CT evidence of diverticulitis. D/ / Peter Morales MD / Peter Morales MD Interpreting Provider: Peter Morales MD Chest CT 01/11/18 17:53 IMPRESSION: Interval development of a new lobulated masslike opacity within the right middle lobe, with enlarged mediastinal lymph nodes. Development of multiple low-density lesions within the hepatic parenchyma compatible with diffuse metastatic disease. Evidence of bony metastatic disease within the T10 vertebral body. As seen on the previous examination, there is a very irregular, lobulated abdominal aortic aneurysm measuring up to 5.9 cm, which appears basically unchanged in size. Again, there is fat stranding adjacent to that aneurysm, mainly posteriorly, but that appears similar when compared to the previous exam. This may be from a previous episode of leakage. Given that is unchanged, definite acute leakage is not seen. Multiple reticulonodular densities within the lungs bilaterally. Although these could be inflammatory in the setting of pneumonia/ bronchiolitis, lymphangitic carcinomatosis must be considered as well. More focal areas of consolidation are identified adjacent to the major fissure on the left, and within the inferior aspect of the right hepatic lobe, and these may represent atelectasis versus pneumonia. Diffuse anasarca, with subcutaneous edema. There is more focal fluid seen within the subcutaneous fat involving the anterior right thigh. Correlate with any clinical evidence of cellulitis/abscess versus hematoma. Bilateral nephrolithiasis. Renal cortical atrophy. Diverticulosis without CT evidence of diverticulitis. D/ / Peter Morales MD / Peter Morales MD Interpreting Provider: Peter Morales MD - ABG Interpretation ABG results: PT/INR, D-dimer PT 12.2 Seconds (9.4-12.1) H 01/10/18 16:47 - Attending Attestation I examined this patient and my medical decision-making was reviewed with the Advanced Practice Nurse. I agree with the documented findings, disposition and treatment plan as described except to the extent set forth below. Ms. Orellana is a chronically ill woman who is on hemodialysis for end-stage renal disease who presents with fluid overload secondary to noncompliance with her dialysis regimen. Her shortness of breath has improved with reinitiation of dialysis. Unfortunately, personal review of her CT scan the chest and abdomen reveals progression of the mediastinal lymphadenopathy, a right middle lobe lung nodule as well as extensive liver metastases. This likely represents a metastatic lung cancer although cancer from another source is certainly a possibility. Lymphoma is possible but less likely given the radiographic appearance. We discussed the need for biopsy. We also discussed that therapy would likely be relegated to chemotherapy/immunotherapy alone; findings are c/w with a metastatic process. Patient would let be interested in pursuing conservative course of care. Therefore, recommended ultrasound/CT-guided biopsy of a liver lesion. The patient wants know when she can return home. My preference is for her to stay in the hospital Monday for biopsy as this will be difficult to arrange as an outpatient and she has demonstrated noncompliance with dialysis as well as follow-up with my office when previously requested during her last hospital stay. She will also need a platelet transfusion prior to biopsy if platelet count remains less than 50,000.
[2018-01-12] MEDS ORDERED: Ondansetron ODT 4 MG TAB.RAPDIS SL PRN (19:18)
[2018-01-12] MEDS: traZODone 50 MG TABLET PO SCH (20:14)
[2018-01-13] MEDS: Levalbuterol 1 PUFF INHALER IH SCH ×6 (04:04→23:56)
[2018-01-13 04:37] LABS: Basophils % 0.1 %; Mean Corpuscular HGB Conc 31.4 g/dL (31.6-35.5); Nucleated Red Blood Cells 0.3 /100 WBC (0)
[2018-01-13 04:38] LABS: Hematocrit 31.2 % (35.3-44.9); Hemoglobin 9.8 g/dL (11.5-15.4); Immature Granulocytes % 4.8 % (0-4); Immature Platelets 4.2 % (1.1-6.1); Lymphocytes # 0.2 K/mcL (0.6-4.6); Mean Corpuscular Hemoglobin 32.3 pg (28.0-33.3); Mean Platelet Volume 10.5 fL (9.4-12.4); Monocytes # 0.4 K/mcL (0.0-1.3); Monocytes % 3.8 %; Neutrophils # 9.5 K/mcL (1.6-8.9); Red Blood Count 3.03 M/mcL (3.82-4.97); Red Cell Distribution Width 15.9 % (11.5-14.5); Segmented Neutrophils % 89.3 %
[2018-01-13] MEDS ORDERED: *HR* Metoprolol 5 MG/5 ML VIAL IVP PRN (04:38)
[2018-01-13 04:39] LABS: Platelet Count 41 K/mcL (140-400)
[2018-01-13 05:00] LABS: Calcium 9.3 mg/dL (8.6-10.3); Potassium 4.4 mEq/L (3.5-5.1)
[2018-01-13] MEDS: Folic Acid 1 MG TABLET PO SCH (08:33)
[2018-01-13] MEDS: Renal Vitamin 1 MG CAPSULE PO SCH (08:33)
[2018-01-13] MEDS: Budesonide/Formoterol 80/4.5 MDI IH SCH ×3 (08:41→19:41)
[2018-01-13] MEDS ORDERED: amLODIPine 5 MG TABLET PO SCH (09:00)
--- NOTE | 2018-01-13 09:18 | Nephrology Progress Note ---
Date of Encounter: 01/13/18 Time of Encounter: 09:00 - Assessment and Plan (1) End stage renal disease Current Visit: No Status: Chronic HD today, keeping MWF schedule. Hem/Onc consult noted, input appreciated. Subjective Interval history: Sleeping, arouses easily. Denies KASEY, no new complaints. Objective - Vital Signs Vital signs: Vital Signs Temp Pulse Resp BP Pulse Ox 01/13/18 06:53 98.9 F 111 19 187/89 90 01/13/18 04:05 20 88 01/13/18 03:34 98.8 F 111 20 175/84 91 01/12/18 23:59 99.0 F 110 188/84 94 01/12/18 23:40 20 88 01/12/18 19:38 98.6 F 114 18 188/89 92 01/12/18 19:30 20 88 01/12/18 17:48 186/90 01/12/18 15:49 18 90 01/12/18 15:38 98.6 F 109 18 193/102 90 01/12/18 14:05 97.0 F L 18 172/88 01/12/18 13:40 142/81 01/12/18 13:25 156/81 01/12/18 13:10 143/80 01/12/18 12:55 144/80 01/12/18 12:40 151/74 01/12/18 12:25 151/77 01/12/18 12:10 148/80 01/12/18 11:55 160/74 01/12/18 11:40 158/74 01/12/18 11:25 169/79 01/12/18 11:10 171/83 01/12/18 10:55 177/84 01/12/18 10:40 97.9 F 18 181/82 Intake and Output 01/12/18 01/13/18 01/13/18 23:59 07:59 15:59 Intake Total Balance Intake: Other Other: Weight 57.3 kg Patient Weight 01/13/18 23:59 Weight 57.3 kg - General Appearance General appearance: Present: well-developed, well-nourished, appears started age EENT: Present: mucous membranes moist Neck: Present: no JVD Respiratory: Present: rhonchi Cardiology: Present: no edema, regular rate, regular rhythm Dialysis Vascular Access: Arteriovenous Fistula Gastrointestinal: Present: normoactive bowel sounds, no tenderness Integumentary: Present: warm and dry Neurologic: Present: alert and oriented x3 - Lab 01/13/18 04:15 01/13/18 04:15 Most recent lab results Calcium 9.3 mg/dL (8.6-10.3) 01/13/18 04:15 Magnesium 2.0 mg/dL (1.6-2.6) 01/13/18 04:15 - VTE Documentation of Mechanical Device: Intermittent pneumatic compression device Consult Discharge Plan - Plan Referrals: Yonatan Aleman DO [Primary Care Provider] -
--- NOTE | 2018-01-13 09:28 | Internal Med Progress Note ---
Date of Encounter: 01/13/18 Time of Encounter: 09:28 - Assessment and plan (1) CAD (coronary artery disease) Current Visit: Yes Status: Chronic Assessment and plan: Continue statin, not on ASA Qualifiers: Coronary Disease-Associated Artery/Lesion type: bypass graft [place] vs. transplanted heart: [place] heart Associated angina: with unspecified angina Qualified Code(s): I25.709 - Atherosclerosis of coronary artery bypass graft(s) , unspecified, with unspecified angina pectoris (2) COPD (chronic obstructive pulmonary disease) Current Visit: Yes Status: Chronic Assessment and plan: Continue O2 support. On chronic O2. Continue home inhalers, not in exacerbation, duonebs prn Qualifiers: COPD type: emphysema Emphysema type: unspecified Qualified Code(s): J43.9 - Emphysema, unspecified (3) DVT prophylaxis Current Visit: Yes Status: Acute Assessment and plan: SCDs (4) Hypothyroidism Current Visit: Yes Status: Chronic Assessment and plan: TSH 0.167, check free T3 and T4, hold synthroid for now, patient had Afib with RVR. free T3 1.89, free T4 WNL Qualifiers: Hypothyroidism type: acquired Qualified Code(s): E03.9 - Hypothyroidism, unspecified (5) Depression with anxiety Current Visit: Yes Status: Chronic Assessment and plan: Continue home medications. The patient seems down and depressed. She denies sicidal ideation, continue citaloparm, continue low dose trazodone (6) Leukocytosis Current Visit: Yes Status: Resolved Assessment and plan: Resolved The patient had bandemia, no signs of infection. She has no signs of infection. She denies any fevers or cough. She did have leukocytosis on her previous admission and at that time blasts were seen and she was supposed to follow up with hematology. Not sure sure that she followed up. oncology following The patient does not have a history of noncompliance. We will monitor for now. No need for antibiotics. Qualifiers: Leukocytosis type: bandemia Qualified Code(s): D72.825 - Bandemia (7) Diastolic CHF Current Visit: Yes Status: Acute Assessment and plan: She has fluid overload due to not going to HD for several days Continue HD, continue home meds Continue BB and statin, not on lasix Qualifiers: Heart failure chronicity: chronic Qualified Code(s): I50.32 - Chronic diastolic (congestive) heart failure (8) Elevated troponin Current Visit: Yes Status: Acute Assessment and plan: Due to demand ischemia , worsened by RVR, in the setting of Afib, ESRD , no intervention. (9) End stage renal disease Current Visit: Yes Status: Chronic Assessment and plan: With hyperkalemia, not complaint with HD Consider SW eval prior to discharge, HD scheduled per renal electrolytes today WNL (10) Hyperkalemia Current Visit: Yes Status: Resolved Assessment and plan: Resolved (11) New onset atrial fibrillation Current Visit: Yes Status: Acute Assessment and plan: Newly diagnosed Afib/flutter with RVR Required multiple agents including cardizem/metoprolol/ Converted with amio Not on any drips/infusions at this time TSH low normal, check Free T3 and Fercho T4 Not a candidate for a/c, cardio following Chem acceptable Continue metoprolol po, titrate prn hemodynamically stable at this time, cardio eval noted (12) Metastases to the liver Current Visit: Yes Status: Acute Assessment and plan: Possibly from a lung primary Oncology following For iver biopsy 01/15 NPO from [place] 01/14 PLT transfusion 01/14 Continue to monitor (13) Lung mass Current Visit: Yes Status: Acute Assessment and plan: Lung mass , new finding, possible mets to the vertebra and liver Pulm consulted,eval noted, oncology following (14) Hypertension Current Visit: Yes Status: Chronic Assessment and plan: Uncontrolled Started onNorvasc 10mg daily Increase Lopressor to BID Hydralazine 10mg q6hr prn Continue to monitor and titrate prn Qualifiers: Hypertension type: essential hypertension Qualified Code(s): I10 - Essential (primary) hypertension - Time Spent With Patient Total time spent is greater than 50% in coordination of care (as documented) at patient's floor/unit and/or counseling patient: - Subjective Interval history: Seen and evaluated at the bedside 67 F with PMH of ESRD on HD, non-complaint, depression , Chronic resp failure on home O2, COPD, CAD She was admitted for hyperkalemia but developed newly diagnosed afib with RVR requiring multiple agents She was seen in the ICU has converted to sinus rhythm since overnight , she is no longer on amiodarone She is not a candidate for anticoagulation due to thrombocytopenia and hx of GIB She seems cheerful this mrn, and denies any new complains, no CP, no SOB She agrees to being depressed and agrees to trial of trazodone, she is not suicidal 01/12 new lung mass with liver and spine mets Pulmonology consulted, oncology following Seen and evaluated during HD, no new complains Understands the findings of new lesions and lung mass 01/13 No new complains Per Oncology forliver biopsy Monday 01/15 For PLT transfusion sunday 01/14 Patient is alert, oriented X3, aware of her diagnoses and wishes to pursue treatment Blood pressure is uncontrolled,added Norvasc to regimen, increased metoprolol to 25bid, continue hydralazine prn - Constitutional Vitals: Temp Pulse Resp BP Pulse Ox 98.9 F 111 19 187/89 90 01/13/18 06:53 01/13/18 06:53 01/13/18 06:53 01/13/18 06:53 01/13/18 06:53 General appearance: Present: A&O X 3, pleasant, no acute distress - Head Head exam: Present: atraumatic, normocephalic - Eye Eye exam: Present: PERRL, conjuntiva pink, sclera anicteric Pupils: Present: PERRL - Neck Neck exam general surgery: Present: supple, trachea midline. Absent: lymphadenopathy - Respiratory Respiratory exam: Present: decreased breath sounds. Absent: stridor, wheezes, tachypnea - Cardiovascular Cardiovascular exam: Present: irregular rhythm, +S1, +S2. Absent: diastolic murmur, gallop, rubs, systolic murmur - GI/Abdominal GI/Abdominal exam: Present: normal bowel sounds, soft, no peritoneal signs. Absent: distended, tenderness - Extremities Exam Extremities exam: Present: warm, radial pulses palpable and symmetrical. Absent : calf tenderness, cyanotic, pedal edema - Neurological Exam Neurological exam: Present: alert, CN II-XII intact, oriented X3, no focal deficits. Absent: pronater drift, facial droop, speech deficit - Skin Skin exam: Present: dry, intact Internal Medicine: Result - Labs CBC & Chem 7: 01/13/18 04:15 01/13/18 04:15 Labs: Short CBC 01/13/18 Range/Units 04:15 WBC 10.6 (4.3-11.1) K/mcL Hgb 9.8 L (11.5-15.4) g/dL Hct 31.2 L (35.3-44.9) % Plt Count 41 L (140-400) K/mcL Neutrophils # 9.5 H (1.6-8.9) K/mcL BMP 01/13/18 04:15 Sodium 139 Potassium 4.4 Chloride 98 Carbon Dioxide 29 BUN 30 H Creatinine 3.56 H Glucose 126 H Calcium 9.3 - ABG Interpretation ABG results: PT/INR, D-dimer PT 12.2 Seconds (9.4-12.1) H 01/10/18 16:47 - VTE Documentation of Mechanical Device: Intermittent pneumatic compression device Consult Discharge Plan - Plan Referrals: Yonatan Aleman DO [Primary Care Provider] -
[2018-01-13] MEDS: traZODone 50 MG TABLET PO SCH (20:36)
[2018-01-14] MEDS: Levalbuterol 1 PUFF INHALER IH SCH ×6 (03:07→23:44)
[2018-01-14 04:51] LABS: Hematocrit 32.4 % (35.3-44.9); Hemoglobin 10.1 g/dL (11.5-15.4); Immature Granulocytes % 3.4 % (0-4); Mean Corpuscular HGB Conc 31.2 g/dL (31.6-35.5); Nucleated Red Blood Cells 0.4 /100 WBC (0)
[2018-01-14 04:53] LABS: Basophils % 0.2 %; Immature Platelets 3.2 % (1.1-6.1); Lymphocytes # 0.2 K/mcL (0.6-4.6); Mean Corpuscular Hemoglobin 32.2 pg (28.0-33.3); Mean Corpuscular Volume 103.2 fL (83.0-100.0); Monocytes # 0.4 K/mcL (0.0-1.3); Monocytes % 3.6 %; Neutrophils # 10.8 K/mcL (1.6-8.9); Red Blood Count 3.14 M/mcL (3.82-4.97); Segmented Neutrophils % 90.8 %
[2018-01-14 04:56] LABS: Platelet Count 44 K/mcL (140-400)
[2018-01-14 05:12] LABS: Calcium 9.3 mg/dL (8.6-10.3); Potassium 4.6 mEq/L (3.5-5.1)
--- NOTE | 2018-01-14 07:27 | Internal Med Progress Note ---
Date of Encounter: 01/14/18 Time of Encounter: 07:25 - Assessment and plan (1) Lung mass Current Visit: Yes Status: Acute Assessment and plan: Lung mass , new finding, possible mets to the vertebra and liver Pulm consulted,eval noted, oncology following (2) Metastases to the liver Current Visit: Yes Status: Acute Assessment and plan: Possibly from a lung primary Oncology following For Liver biopsy 01/15 NPO from [place] 01/14 PLT transfusion 01/14. transfuse 2 bags Continue to monitor (3) End stage renal disease Current Visit: Yes Status: Chronic Assessment and plan: With hyperkalemia, not complaint with HD Consider SW eval prior to discharge, HD scheduled per renal electrolytes today WNL (4) Thrombocytopenia Current Visit: No Status: Acute Assessment and plan: Will transfuse two bags of platelet today in preparation for liver biopsy (5) CAD (coronary artery disease) Current Visit: Yes Status: Chronic Assessment and plan: Continue statin, not on ASA Qualifiers: Coronary Disease-Associated Artery/Lesion type: bypass graft [place] vs. transplanted heart: [place] heart Associated angina: with unspecified angina Qualified Code(s): I25.709 - Atherosclerosis of coronary artery bypass graft(s) , unspecified, with unspecified angina pectoris (6) COPD (chronic obstructive pulmonary disease) Current Visit: Yes Status: Chronic Assessment and plan: Continue O2 support. On chronic O2. Continue home inhalers, not in exacerbation, duonebs prn Qualifiers: COPD type: emphysema Emphysema type: unspecified Qualified Code(s): J43.9 - Emphysema, unspecified (7) DVT prophylaxis Current Visit: Yes Status: Acute Assessment and plan: SCDs (8) Hypothyroidism Current Visit: Yes Status: Chronic Assessment and plan: TSH 0.167, check free T3 and T4, hold synthroid for now, patient had Afib with RVR. free T3 1.89, free T4 WNL Qualifiers: Hypothyroidism type: acquired Qualified Code(s): E03.9 - Hypothyroidism, unspecified (9) Depression with anxiety Current Visit: Yes Status: Chronic Assessment and plan: Continue home medications. The patient seems down and depressed. She denies sicidal ideation, continue citaloparm, continue low dose trazodone (10) Leukocytosis Current Visit: Yes Status: Resolved Assessment and plan: Resolved The patient had bandemia, no signs of infection. She has no signs of infection. She denies any fevers or cough. She did have leukocytosis on her previous admission and at that time blasts were seen and she was supposed to follow up with hematology. Not sure sure that she followed up. oncology following The patient does not have a history of noncompliance. We will monitor for now. No need for antibiotics. Qualifiers: Leukocytosis type: bandemia Qualified Code(s): D72.825 - Bandemia (11) Diastolic CHF Current Visit: Yes Status: Acute Assessment and plan: She has fluid overload due to not going to HD for several days Continue HD, continue home meds Continue BB and statin, not on lasix Qualifiers: Heart failure chronicity: chronic Qualified Code(s): I50.32 - Chronic diastolic (congestive) heart failure (12) Elevated troponin Current Visit: Yes Status: Acute Assessment and plan: Due to demand ischemia , worsened by RVR, in the setting of Afib, ESRD , no intervention. (13) Hyperkalemia Current Visit: Yes Status: Resolved Assessment and plan: Resolved (14) New onset atrial fibrillation Current Visit: Yes Status: Acute Assessment and plan: Newly diagnosed Afib/flutter with RVR Required multiple agents including cardizem/metoprolol/ Converted with amio Not on any drips/infusions at this time TSH low normal, check Free T3 and Fercho T4 Not a candidate for a/c, cardio following Chem acceptable Continue metoprolol po, titrate prn hemodynamically stable at this time, cardio eval noted (15) Hypertension Current Visit: Yes Status: Chronic Assessment and plan: Uncontrolled Started onNorvasc 10mg daily Increase Lopressor to BID Hydralazine 10mg q6hr prn Continue to monitor and titrate prn Qualifiers: Hypertension type: essential hypertension Qualified Code(s): I10 - Essential (primary) hypertension - Time Spent With Patient Total time spent is greater than 50% in coordination of care (as documented) at patient's floor/unit and/or counseling patient: - Subjective Interval history: No acute events overnight - Constitutional Vitals: Temp Pulse Resp BP Pulse Ox 98.5 F 104 19 171/80 91 01/14/18 06:53 01/14/18 06:53 01/14/18 06:53 01/14/18 06:53 01/14/18 06:53 General appearance: Present: A&O X 3, pleasant, no acute distress - Head Head exam: Present: atraumatic, normocephalic - Eye Eye exam: Present: PERRL, conjuntiva pink, sclera anicteric Pupils: Present: PERRL - Neck Neck exam general surgery: Present: supple, trachea midline. Absent: lymphadenopathy - Respiratory Respiratory exam: Present: CTAB. Absent: accessory muscle use, rales, rhonchi, wheezes - Cardiovascular Cardiovascular exam: Present: RRR, +S1, +S2. Absent: diastolic murmur, gallop, rubs, systolic murmur - GI/Abdominal GI/Abdominal exam: Present: normal bowel sounds, soft, no peritoneal signs. Absent: distended, tenderness - Extremities Exam Extremities exam: Present: warm, radial pulses palpable and symmetrical. Absent : calf tenderness, cyanotic, pedal edema - Neurological Exam Neurological exam: Present: CN II-XII intact, oriented X3, no focal deficits. Absent: pronater drift, facial droop, speech deficit - Skin Skin exam: Present: dry, intact Internal Medicine: Result - Labs CBC & Chem 7: 01/14/18 04:35 01/14/18 04:35 Labs: Short CBC 01/14/18 Range/Units 04:35 WBC 11.9 H (4.3-11.1) K/mcL Hgb 10.1 L (11.5-15.4) g/dL Hct 32.4 L (35.3-44.9) % Plt Count 44 L (140-400) K/mcL Neutrophils # 10.8 H (1.6-8.9) K/mcL BMP 01/14/18 04:35 Sodium 140 Potassium 4.6 Chloride 99 Carbon Dioxide 28 BUN 49 H Creatinine 5.37 H Glucose 126 H Calcium 9.3 - ABG Interpretation ABG results: PT/INR, D-dimer PT 12.2 Seconds (9.4-12.1) H 01/10/18 16:47 - VTE Documentation of Mechanical Device: Intermittent pneumatic compression device Consult Discharge Plan - Plan Referrals: Yonatan Aleman DO [Primary Care Provider] -
[2018-01-14] MEDS: Budesonide/Formoterol 80/4.5 MDI IH SCH ×2 (08:38→20:00)
--- NOTE | 2018-01-14 08:41 | Nephrology Progress Note ---
Date of Encounter: 01/14/18 Time of Encounter: 08:30 - Assessment and Plan (1) End stage renal disease Current Visit: No Status: Chronic HD today, keeping MWF schedule. SBP 150-180. Will increase Amlodipine 5m BID. Subjective Interval history: Awake, denies KASEY, no new complaints. Objective - Vital Signs Vital signs: Vital Signs Temp Pulse Resp BP Pulse Ox 01/14/18 06:53 98.5 F 104 19 171/80 91 01/14/18 04:10 98.2 F 102 17 181/87 95 01/14/18 03:12 18 92 01/14/18 01:19 97.8 F 88 18 146/67 92 01/13/18 23:56 19 93 01/13/18 19:50 98.7 F 104 16 176/83 93 01/13/18 19:42 20 92 01/13/18 15:08 97.8 F 86 20 145/66 90 01/13/18 11:30 16 90 01/13/18 11:25 98.8 F 95 18 177/78 90 01/13/18 09:56 98.5 F 94 20 187/90 90 Intake and Output 01/13/18 01/14/18 01/14/18 23:59 07:59 15:59 Intake Total 0 / 0 Balance 0 / 0 Intake: Oral 0 / 0 0 / 0 Other Other: Meal Dinner Percent of Meal Consumed 5% Stool Size Moderate Stool Consistency formed Stool Color Brown # Voids 1 # Bowel Movements 1 Weight 56.8 kg Patient Weight 01/14/18 23:59 Weight 56.8 kg - General Appearance General appearance: Present: well-developed, well-nourished, appears started age EENT: Present: mucous membranes moist Neck: Present: no JVD Respiratory: Present: rhonchi Cardiology: Present: no edema, regular rate, regular rhythm Dialysis Vascular Access: Arteriovenous Fistula thrill: Yes bruit: Yes Gastrointestinal: Present: normoactive bowel sounds, no tenderness Integumentary: Present: warm and dry Neurologic: Present: alert and oriented x3 - Lab 01/14/18 04:35 01/14/18 04:35 Most recent lab results Calcium 9.3 mg/dL (8.6-10.3) 01/14/18 04:35 Magnesium 2.0 mg/dL (1.6-2.6) 01/13/18 04:15 - VTE Documentation of Mechanical Device: Intermittent pneumatic compression device Consult Discharge Plan - Plan Referrals: Yonatan Aleman DO [Primary Care Provider] -
[2018-01-14] MEDS: amLODIPine 5 MG TABLET PO SCH ×2 (09:20→21:09)
[2018-01-14] MEDS: Renal Vitamin 1 MG CAPSULE PO SCH (09:20)
[2018-01-14] MEDS: Folic Acid 1 MG TABLET PO SCH (09:20)
[2018-01-14] MEDS ORDERED: *HR* Promethazine 25 MG/ML VIAL IVP PRN (11:54)
[2018-01-14] MEDS ORDERED: amLODIPine 5 MG TABLET PO ONE (11:54)
[2018-01-14] MEDS: hydrALAZINE 25 MG TABLET PO SCH ×3 (13:15→21:09)
[2018-01-14] MEDS: Ondansetron 4 MG/2 ML VIAL IVP PRN (13:15)
[2018-01-14] MEDS ORDERED: 0.9 % Sodium Chloride 250 ML ONE (17:58)
[2018-01-14 18:31] LABS: Alpha 2 Globulin (PEP) 0.51 g/dL (0.48-1.05); Beta Globulin (PEP) 0.41 g/dL (0.48-1.10)
[2018-01-14] MEDS: traZODone 50 MG TABLET PO SCH (21:09)
[2018-01-15] MEDS: Levalbuterol 1 PUFF INHALER IH SCH ×6 (03:31→23:04)
[2018-01-15 04:13] LABS: Hematocrit 27.9 % (35.3-44.9); Hemoglobin 8.6 g/dL (11.5-15.4); Immature Granulocytes % 2.1 % (0-4); Lymphocytes # 0.2 K/mcL (0.6-4.6); Lymphocytes % 1.9 %; Mean Corpuscular HGB Conc 30.8 g/dL (31.6-35.5); Mean Corpuscular Hemoglobin 32.3 pg (28.0-33.3); Mean Corpuscular Volume 104.9 fL (83.0-100.0); Mean Platelet Volume 10.1 fL (9.4-12.4); Monocytes # 0.4 K/mcL (0.0-1.3); Monocytes % 4.4 %; Neutrophils # 8.9 K/mcL (1.6-8.9); Nucleated Red Blood Cells 0.3 /100 WBC (0); Platelet Count 35 K/mcL (140-400); Red Blood Count 2.66 M/mcL (3.82-4.97); Red Cell Distribution Width 16.1 % (11.5-14.5); Segmented Neutrophils % 91.6 %
[2018-01-15 04:33] LABS: Calcium 8.9 mg/dL (8.6-10.3); Potassium 5.4 mEq/L (3.5-5.1)
--- NOTE | 2018-01-15 07:30 | Internal Med Progress Note ---
Date of Encounter: 01/15/18 Time of Encounter: 07:30 - Assessment and plan (1) Lung mass Current Visit: Yes Status: Acute Assessment and plan: Lung mass , new finding, possible mets to the vertebra and liver Pulm consulted,amee noted, oncology following.Has thromboytopenia. Platelets came back at 40 after 2 bags of platelets were transfused overnight. will transfuse another 2 bags of platelets. Plan for liver biopsy once platelet count is >50 (2) Metastases to the liver Current Visit: Yes Status: Acute Assessment and plan: Possibly from a lung primary Oncology following For Liver biopsy 01/15 NPO from [place] 01/14 PLT transfusion 01/14. transfuse 2 bags Continue to monitor. Plan for liver biopsy today (3) End stage renal disease Current Visit: Yes Status: Chronic Assessment and plan: Continue hemodialysis per schedule (4) Thrombocytopenia Current Visit: No Status: Acute Assessment and plan: Will transfuse two bags of platelet today in preparation for liver biopsy. Platelet count dropped to 40 this am s/p 2 bags of platelets. Transfuse another 2 bags of platelets (5) CAD (coronary artery disease) Current Visit: Yes Status: Chronic Assessment and plan: Continue statin, not on ASA Qualifiers: Coronary Disease-Associated Artery/Lesion type: bypass graft [place] vs. transplanted heart: [place] heart Associated angina: with unspecified angina Qualified Code(s): I25.709 - Atherosclerosis of coronary artery bypass graft(s) , unspecified, with unspecified angina pectoris (6) COPD (chronic obstructive pulmonary disease) Current Visit: Yes Status: Chronic Assessment and plan: Continue O2 support. On chronic O2. Continue home inhalers, not in exacerbation, duonebs prn Qualifiers: COPD type: emphysema Emphysema type: unspecified Qualified Code(s): J43.9 - Emphysema, unspecified (7) DVT prophylaxis Current Visit: Yes Status: Acute Assessment and plan: SCDs (8) Hypothyroidism Current Visit: Yes Status: Chronic Assessment and plan: TSH 0.167, check free T3 and T4, . free T3 1.89, free T4 WNL . 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 She denies sicidal ideation, continue citaloparm, continue low dose trazodone (10) Diastolic CHF Current Visit: Yes Status: Acute Assessment and plan: She had fluid overload due to not going to HD for several days Continue HD, continue home meds Continue BB and statin, not on lasix Qualifiers: Heart failure chronicity: chronic Qualified Code(s): I50.32 - Chronic diastolic (congestive) heart failure (11) Elevated troponin Current Visit: Yes Status: Acute Assessment and plan: Due to demand ischemia , worsened by RVR, in the setting of Afib, ESRD , no intervention. (12) Hyperkalemia Current Visit: Yes Status: Resolved Assessment and plan: Resolved (13) New onset atrial fibrillation Current Visit: Yes Status: Acute Assessment and plan: Newly diagnosed Afib/flutter with RVR Required multiple agents including cardizem/metoprolol/ Converted with amio Not on any drips/infusions at this time TSH low normal, check Free T3 and Fercho T4 Not a candidate for a/c, cardio following Chem acceptable Continue metoprolol po, titrate prn hemodynamically stable at this time, cardio eval noted (14) Hypertension Current Visit: Yes Status: Chronic Assessment and plan: Uncontrolled Started onNorvasc 10mg daily Increase Lopressor to BID Hydralazine 10mg q6hr prn Continue to monitor and titrate prn Qualifiers: Hypertension type: essential hypertension Qualified Code(s): I10 - Essential (primary) hypertension - Time Spent With Patient Total time spent is greater than 50% in coordination of care (as documented) at patient's floor/unit and/or counseling patient: - Subjective Interval history: No acute events overnight - Constitutional Vitals: Temp Pulse Resp BP Pulse Ox 97.8 F 86 16 107/60 92 01/15/18 03:53 01/15/18 03:53 01/15/18 03:53 01/15/18 03:53 01/15/18 03:53 General appearance: Present: A&O X 3, pleasant, no acute distress - Head Head exam: Present: atraumatic, normocephalic - Eye Eye exam: Present: PERRL, conjuntiva pink, sclera anicteric Pupils: Present: PERRL - Neck Neck exam general surgery: Present: supple, trachea midline. Absent: lymphadenopathy - Respiratory Respiratory exam: Present: CTAB. Absent: accessory muscle use, rales, rhonchi, wheezes - Cardiovascular Cardiovascular exam: Present: RRR, +S1, +S2. Absent: diastolic murmur, gallop, rubs, systolic murmur - GI/Abdominal GI/Abdominal exam: Present: normal bowel sounds, soft, no peritoneal signs. Absent: distended, tenderness - Extremities Exam Extremities exam: Present: warm, radial pulses palpable and symmetrical. Absent : calf tenderness, cyanotic, pedal edema - Neurological Exam Neurological exam: Present: CN II-XII intact, oriented X3, no focal deficits. Absent: pronater drift, facial droop, speech deficit - Skin Skin exam: Present: dry, intact Internal Medicine: Result - Labs CBC & Chem 7: 01/15/18 07:35 01/15/18 03:55 Labs: Short CBC 01/15/18 Range/Units 03:55 WBC 9.7 (4.3-11.1) K/mcL Hgb 8.6 L D (11.5-15.4) g/dL Hct 27.9 L (35.3-44.9) % Plt Count 35 L (140-400) K/mcL Neutrophils # 8.9 (1.6-8.9) K/mcL BMP 01/15/18 03:55 Sodium 139 Potassium 5.4 H Chloride 98 Carbon Dioxide 28 BUN 65 H Creatinine 6.66 H Glucose 102 Calcium 8.9 - ABG Interpretation ABG results: PT/INR, D-dimer PT 12.2 Seconds (9.4-12.1) H 01/10/18 16:47 - VTE Documentation of Mechanical Device: Intermittent pneumatic compression device Consult Discharge Plan - Plan Referrals: Yonatan Aleman DO [Primary Care Provider] - 01/23/18 2:00 pm ()
[2018-01-15] MEDS: Budesonide/Formoterol 80/4.5 MDI IH SCH ×2 (07:42→19:35)
[2018-01-15 07:43] LABS: Hemoglobin 9.3 g/dL (11.5-15.4); Mean Corpuscular Volume 104.1 fL (83.0-100.0); Nucleated Red Blood Cells 0.3 /100 WBC (0); Red Cell Distribution Width 15.9 % (11.5-14.5)
[2018-01-15 07:45] LABS: Basophils % 0.1 %; Hematocrit 30.2 % (35.3-44.9); Immature Platelets 3.4 % (1.1-6.1); Lymphocytes # 0.2 K/mcL (0.6-4.6); Lymphocytes % 1.8 %; Mean Corpuscular HGB Conc 30.8 g/dL (31.6-35.5); Mean Corpuscular Hemoglobin 32.1 pg (28.0-33.3); Mean Platelet Volume 9.3 fL (9.4-12.4); Monocytes # 0.5 K/mcL (0.0-1.3); Monocytes % 4.4 %; Neutrophils # 9.9 K/mcL (1.6-8.9); Segmented Neutrophils % 91.7 %
[2018-01-15 07:46] LABS: Platelet Count 40 K/mcL (140-400)
[2018-01-15] MEDS ORDERED: 0.9 % Sodium Chloride 250 ML IVC PRN (08:17)
--- NOTE | 2018-01-15 08:17 | Nephrology Progress Note ---
Date of Encounter: 01/15/18 Time of Encounter: 08:16 - Assessment and Plan (1) End stage renal disease Current Visit: No Status: Chronic Patient will undergo dialysis today on a 2K bath. Hemoglobin is 8.6. She will be placed on aranesp. (2) COPD (chronic obstructive pulmonary disease) Current Visit: Yes Status: Chronic Qualifiers: COPD type: emphysema Emphysema type: unspecified Qualified Code(s): J43.9 - Emphysema, unspecified (3) Anemia, chronic renal failure Current Visit: No Status: Acute Qualifiers: Chronic kidney disease stage: stage 5 Qualified Code(s): N18.5 - Chronic kidney disease, stage 5; D63.1 - Anemia in chronic kidney disease Subjective Interval history: Patient is complaining of shortness of breath. She is scheduled for a liver biopsy later today. She is also scheduled for her usual dialysis. Objective - Vital Signs Vital signs: Vital Signs Temp Pulse Resp BP Pulse Ox 01/15/18 07:37 98.6 F 100 16 162/69 95 01/15/18 03:53 97.8 F 86 16 107/60 92 01/14/18 23:45 16 95 01/14/18 23:27 98.0 F 79 16 124/68 95 01/14/18 21:32 99.3 F 80 133/68 22 01/14/18 20:42 98.3 F 101 22 164/73 01/14/18 20:19 99.2 F 18 169/80 95 01/14/18 20:00 20 95 01/14/18 19:07 99.3 F 93 16 153/72 96 01/14/18 18:30 99.3 F 89 14 142/68 95 01/14/18 18:15 98.1 F 93 14 128/67 92 01/14/18 15:50 16 93 01/14/18 15:45 98.6 F 91 18 149/65 94 01/14/18 11:47 18 96 01/14/18 10:47 98.3 F 87 18 170/70 98 01/14/18 08:40 18 94 Intake and Output 01/14/18 01/15/18 01/15/18 23:59 07:59 15:59 Intake Total 438 / 438 Balance 438 / 438 Intake: Oral 240 / 240 Blood Product 198 / 198 Platelet Pheresis Lp Irr 1st 198 / 198 Unit [id number] Platelet Pheresis Lp Irr 3rd 0 / 0 Unit [id number] Other 0 / 0 Other: Meal Dinner Percent of Meal Consumed 0% Weight 55.3 kg - General Appearance Exam: Patient is alert and oriented. She appears chronically ill. She is in no acute distress. Lung sounds bilaterally. Heart regular rate and rhythm. Abdomen is benign. There is no peripheral edema. There is a functioning AV fistula in the left upper extremity. - Lab 01/15/18 07:35 01/15/18 03:55 Most recent lab results Calcium 8.9 mg/dL (8.6-10.3) 01/15/18 03:55 Magnesium 2.0 mg/dL (1.6-2.6) 01/13/18 04:15 - VTE Documentation of Mechanical Device: Intermittent pneumatic compression device Consult Discharge Plan - Plan Referrals: Yonatan Aleman DO [Primary Care Provider] -
[2018-01-15] MEDS: hydrALAZINE 25 MG TABLET PO SCH ×3 (08:30→20:07)
[2018-01-15] MEDS: amLODIPine 5 MG TABLET PO SCH ×2 (08:31→20:07)
[2018-01-15] MEDS: Ondansetron 4 MG/2 ML VIAL IVP PRN (08:34)
[2018-01-15] MEDS: Renal Vitamin 1 MG CAPSULE PO SCH (08:35)
[2018-01-15] MEDS: Folic Acid 1 MG TABLET PO SCH (08:35)
[2018-01-15 09:17] LABS: IFE Reflexed NOT DONE
[2018-01-15] MEDS: predniSONE 20 MG TABLET PO SCH (14:34)
--- NOTE | 2018-01-15 18:48 | Oncology Inp Progress Note ---
<Kaylen Stubbs L - Last Filed: 01/16/18 07:04> Date of Encounter: 01/15/18 Time of Encounter: 15:30 (1) Thrombocytopenia Current Visit: No Status: Acute Assessment and plan: Appears chronic and intermittent since 2014, acutely worsened. Etiology somewhat unclear. Abdomen/Pelvis CTA from 2017 notes splenomegaly. Imaging today reveals multiple liver lesions concerning for metastatic disease, potential lung primary. Suggest a degree of hepatic congestion contributing. Platelet transfusions needed for liver biopsy to increase platelet count >50, however, platelets appear to have no effect on increasing count, suspect sequestering. Added 60 mg prednisone to assess for ITP component, monitor platelet count tomorrow and will d/c if no improvement. (2) Lung mass Current Visit: Yes Status: Acute Assessment and plan: CT chest/abdomen/pelvis reveals findings concerning for potential primary lung carcinoma with finding of new lobulated masslike opacity within the right middle lobe, along with findings concerning innumerable liver metastases, bone metastases and mediastinal lymphadenopathy. CT findings concerning for wide spread metastatic disease, potential lung primary. Patient wishes to pursue treatment options, amendable to biopsy. Patient is aware that she needs to attend her dialysis sessions in order to receive chemotherapy/immunotherapy treatments. Plan for CT guided biopsy of liver lesion tomorrow if platelets >50. Appreciate the assistance of the primary team with platelet transfusions over weekend. See plan for thrombocytopenia above. Please refer to Dr. Cole's attestation below for additional details. (3) Anemia in chronic kidney disease Current Visit: No Status: Chronic Assessment and plan: Hgb -improving. S/P aranesp weekly per nephrology Multifactorial-Anemia of chronic disease, secondary to new findings suggestive of malignancy Macrocytosis She had an EGD with treatment of an oozing gastric ulcer during prior admission. She denies any s/s of bleeding such as hemoptysis, hematochezia or melena. Iron, Ferritin, B12, Folate-replete SPEP-no monoclonal proteins LDH 338 [place]-negative Qualifiers: Chronic kidney disease stage: unspecified stage Qualified Code(s): N18.9 - Chronic kidney disease, unspecified; D63.1 - Anemia in chronic kidney disease; D63.1 - Anemia in chronic kidney disease Oncology: Subj Interval history: Ms. Orellana is resting in bed. States she wishes to go home, but also states she wishes to undergo liver biopsy and discuss treatment options. She denies pain, nausea, vomiting or diarrhea. - Constitutional Vitals: Vital Signs Temp Pulse Resp BP Pulse Ox 01/15/18 16:26 98.3 F 108 16 148/71 96 01/15/18 15:35 16 97 01/15/18 13:02 98.3 F 71 16 158/75 93 01/15/18 12:50 98.5 F 20 156/83 01/15/18 12:15 143/68 01/15/18 12:00 151/60 01/15/18 11:45 156/73 01/15/18 11:30 158/86 01/15/18 11:15 140/70 01/15/18 11:00 151/79 01/15/18 10:45 144/81 01/15/18 10:30 135/67 01/15/18 10:15 145/68 01/15/18 10:00 158/78 01/15/18 09:45 153/66 01/15/18 09:30 171/87 01/15/18 09:15 98.2 F 20 169/88 01/15/18 07:42 16 96 01/15/18 07:37 98.6 F 100 16 162/69 95 01/15/18 03:53 97.8 F 86 16 107/60 92 01/14/18 23:45 16 95 01/14/18 23:27 98.0 F 79 16 124/68 95 01/14/18 21:32 99.3 F 80 133/68 22 01/14/18 20:42 98.3 F 101 22 164/73 01/14/18 20:19 99.2 F 18 169/80 95 01/14/18 20:00 20 95 01/14/18 19:07 99.3 F 93 16 153/72 96 Intake and Output 01/15/18 01/15/18 01/15/18 07:59 15:59 23:59 Intake Total 600 / 600 Output Total 1600 / 1600 Balance -1000 / -1000 Intake: Oral 0 / 0 Other Intake, Rinseback and Flushes 600 / 600 Output: Urine 0 / 0 Total Dialysis (HD) Output 1600 / 1600 Other: Hemodialysis Net Fluid Removed 1000 (mL) General appearance: cooperative, no acute distress, no febrile Exam: chronically ill appearing. - Head Head exam: Present: atraumatic - ENT ENT exam: Present: mucous membranes moist - Respiratory Respiratory exam: Present: CTAB. Absent: respiratory distress - Cardiovascular Cardiovascular exam: Present: RRR, +S1, +S2 - GI/Abdominal GI/Abdominal exam: Present: normal bowel sounds, soft. Absent: guarding, rebound, tenderness - Extremities Exam Extremities exam: Present: normal inspection. Absent: calf tenderness - Neurological Exam Neurological exam: Present: alert, oriented X3, no focal deficits, strengths equal and symetr throughout - Psychiatric Psychiatric exam: Present: normal affect, normal mood - Skin Skin exam: Present: dry, intact, normal color, warm Oncology: Obj Data - Labs CBC & Chem 7: 01/16/18 06:30 01/15/18 03:55 - ABG Interpretation ABG results: PT/INR, D-dimer PT 12.2 Seconds (9.4-12.1) H 01/10/18 16:47 Consult Discharge Plan - Plan Referrals: Yonatan Aleman DO [Primary Care Provider] - 01/23/18 2:00 pm () <Jluis Cole - Last Filed: 01/16/18 09:13> Date of Encounter: 01/16/18 - Constitutional Vitals: Vital Signs Temp Pulse Resp BP Pulse Ox 01/16/18 06:37 98.2 F 89 17 136/68 95 01/16/18 05:40 98.9 F 90 16 144/68 92 01/16/18 04:14 98.5 F 98 12 144/68 01/16/18 03:48 98.5 F 115 12 138/66 01/16/18 03:27 97.9 F 68 16 139/69 92 01/16/18 02:59 98.8 F 115 14 144/82 01/16/18 02:44 98.3 F 12 146/68 01/15/18 23:58 98.0 F 88 16 143/63 95 01/15/18 23:05 18 95 01/15/18 22:45 98.7 F 89 18 136/56 96 01/15/18 19:50 99.0 F 103 16 132/69 93 01/15/18 19:35 18 94 01/15/18 16:26 98.3 F 108 16 148/71 96 01/15/18 15:35 16 97 01/15/18 13:02 98.3 F 71 16 158/75 93 01/15/18 12:50 98.5 F 20 156/83 01/15/18 12:15 143/68 01/15/18 12:00 151/60 01/15/18 11:45 156/73 01/15/18 11:30 158/86 01/15/18 11:15 140/70 01/15/18 11:00 151/79 01/15/18 10:45 144/81 01/15/18 10:30 135/67 01/15/18 10:15 145/68 01/15/18 10:00 158/78 01/15/18 09:45 153/66 01/15/18 09:30 171/87 01/15/18 09:15 98.2 F 20 169/88 Intake and Output 01/16/18 01/16/18 01/16/18 00:59 08:59 16:59 Intake Total 450 / 450 606 / 606 Balance 450 / 450 606 / 606 Intake: Blood Product 450 / 450 606 / 606 Platelet Pheresis Lp Irr 2nd 201 / 201 Unit [id number] Platelet Pheresis Lp Irr 3rd 405 / 405 Unit [id number] Platelet Pheresis Lp Irr 3rd 450 / 450 Unit [id number] Other: Weight 54.6 kg Oncology: Obj Data - Labs CBC & Chem 7: 01/16/18 06:30 01/16/18 04:00 Labs: Laboratory Results - last 24 hr 01/10/18 01/12/18 01/12/18 18:44 06:02 06:02 WBC RBC Hgb Hct MCV MCH MCHC RDW Plt Count MPV Immature Gran % Seg Neutrophils % Lymphocytes % Monocytes % Eosinophils % Basophils % Neutrophils # Lymphocytes # Monocytes # Eosinophils # Basophils # Nucleated RBCs/100 WBC Platelet Estimate Immature Plt Fraction Sodium Potassium Chloride Carbon Dioxide BUN Creatinine Est GFR ( Amer) Est GFR (Non-Af Amer) BUN/Creatinine Ratio Glucose Calculated Osmolality Calcium Prot Electrophor EER SEE NOTE Total Protein (PEP) 5.00 L Albumin (PEP) 2.95 L Msyix-5-Rhmjizhiu 0.44 Rnszi-4-Ghshhuumw 0.51 Beta Globulins 0.41 L Gamma Globulins 0.70 PEP Interpretation SEE NOTE Serum Immunofix Reflex NOT DONE IgG TNP IgA TNP IgM TNP Platelet IgG Antibody NEGATIVE Platelet IgM Antibody NEGATIVE Blood Type A NEGATIVE Antibody Screen NEGATIVE [place], Poly Interpret NEG 01/16/18 01/16/18 04:00 06:30 WBC 7.3 RBC 2.74 L Hgb 8.8 L Hct 28.1 L MCV 102.6 H MCH 32.1 MCHC 31.3 L RDW 15.7 H Plt Count 69 L D MPV 9.5 Immature Gran % 1.2 Seg Neutrophils % 91.3 Lymphocytes % 1.7 Monocytes % 5.8 Eosinophils % 0.0 Basophils % 0.0 Neutrophils # 6.7 Lymphocytes # 0.1 L Monocytes # 0.4 Eosinophils # 0.0 Basophils # 0.0 Nucleated RBCs/100 WBC 0.4 H Platelet Estimate Decreased L Immature Plt Fraction 3.2 Sodium 140 Potassium 3.8 Chloride 96 L Carbon Dioxide 30 H BUN 37 H Creatinine 4.09 H Est GFR ( Amer) 13 L Est GFR (Non-Af Amer) 11 L BUN/Creatinine Ratio 9 Glucose 116 H Calculated Osmolality 300 Calcium 9.2 Prot Electrophor EER Total Protein (PEP) Albumin (PEP) Mervw-7-Jjadyoikr Aznsk-5-Cnntrukgi Beta Globulins Gamma Globulins PEP Interpretation Serum Immunofix Reflex IgG IgA IgM Platelet IgG Antibody Platelet IgM Antibody Blood Type Antibody Screen MAINE, Poly Interpret - ABG Interpretation ABG results: PT/INR, D-dimer PT 12.2 Seconds (9.4-12.1) H 01/10/18 16:47
[2018-01-15] MEDS: traZODone 50 MG TABLET PO SCH (23:17)
[2018-01-16] MEDS ORDERED: 0.9 % Sodium Chloride 250 ML ONE ×2 (02:12→04:08)
[2018-01-16] MEDS: Levalbuterol 1 PUFF INHALER IH SCH ×5 (03:37→20:39)
[2018-01-16 06:42] LABS: Hematocrit 28.1 % (35.3-44.9); Hemoglobin 8.8 g/dL (11.5-15.4); Immature Granulocytes % 1.2 % (0-4); Immature Platelets 3.2 % (1.1-6.1); Lymphocytes # 0.1 K/mcL (0.6-4.6); Lymphocytes % 1.7 %; Mean Corpuscular HGB Conc 31.3 g/dL (31.6-35.5); Mean Corpuscular Hemoglobin 32.1 pg (28.0-33.3); Mean Corpuscular Volume 102.6 fL (83.0-100.0); Mean Platelet Volume 9.5 fL (9.4-12.4); Monocytes # 0.4 K/mcL (0.0-1.3); Monocytes % 5.8 %; Nucleated Red Blood Cells 0.4 /100 WBC (0); Red Blood Count 2.74 M/mcL (3.82-4.97); Red Cell Distribution Width 15.7 % (11.5-14.5); Segmented Neutrophils % 91.3 %
[2018-01-16 06:45] LABS: Neutrophils # 6.7 K/mcL (1.6-8.9); Platelet Count 69 K/mcL (140-400)
[2018-01-16 07:09] LABS: Calcium 9.2 mg/dL (8.6-10.3); Potassium 3.8 mEq/L (3.5-5.1)
[2018-01-16 07:33] LABS: Platelet Estimate Decreased (Normal)
[2018-01-16] MEDS: Budesonide/Formoterol 80/4.5 MDI IH SCH ×2 (07:39→20:40)
[2018-01-16] MEDS: predniSONE 20 MG TABLET PO SCH (10:52)
[2018-01-16] MEDS: Folic Acid 1 MG TABLET PO SCH (10:52)
[2018-01-16] MEDS: Renal Vitamin 1 MG CAPSULE PO SCH (10:52)
[2018-01-16] MEDS: hydrALAZINE 25 MG TABLET PO SCH ×3 (10:53→20:10)
[2018-01-16] MEDS: amLODIPine 5 MG TABLET PO SCH ×2 (10:53→20:10)
--- NOTE | 2018-01-16 14:02 | Internal Med Progress Note ---
Date of Encounter: 01/16/18 Time of Encounter: 08:30 ( ) - Assessment and plan (1) Thrombocytopenia Current Visit: Yes Status: Acute Assessment and plan: Acute on chronic. CT abdomen showed splenomegaly. 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 Platelet count today improved to 69,000. Continue to monitor closely. (2) Lung mass Current Visit: Yes Status: Acute Assessment and plan: Newly diagnosed right medial lobe lung mass with possible liver and T10 vertebral metastasis. Oncology on board. Plan for liver biopsy today. (3) New onset atrial fibrillation Current Visit: Yes Status: Acute Assessment and plan: Currently rate controlled. Continue telemetry monitoring, on beta esther. Not a candidate for anticoagulation at this time due to ongoing anemia and thrombocytopenia. (4) CAD (coronary artery disease) Current Visit: Yes Status: Chronic Qualifiers: Coronary Disease-Associated Artery/Lesion type: bypass graft [place] vs. transplanted heart: [place] heart Associated angina: without angina Qualified Code(s): I25.810 - Atherosclerosis of coronary artery bypass graft(s) without angina pectoris (5) COPD (chronic obstructive pulmonary disease) Current Visit: Yes Status: Chronic Assessment and plan: Not in acute exacerbation. Continue when necessary breathing treatments and supplemental oxygen. Qualifiers: COPD type: emphysema Emphysema type: unspecified Qualified Code(s): J43.9 - Emphysema, unspecified (6) Hypothyroidism Current Visit: Yes Status: Chronic Assessment and plan: Levothyroxin noted to be on hold, will Continue levothyroxine. TSH and free T3 slightly low. 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 Cardiology evaluation completed, no further inpatient testing at this time. (9) End stage renal disease Current Visit: Yes Status: Chronic Assessment and plan: Nephrology on board for hemodialysis needs. Continue multivitamins and phosphate binders. (10) Metastases to the liver Current Visit: Yes Status: Acute Assessment and plan: Plan as above. Possible lung primary. (11) Hypertension Current Visit: Yes Status: Chronic Qualifiers: Hypertension type: essential hypertension Qualified Code(s): I10 - Essential (primary) hypertension (12) Chronic respiratory failure Current Visit: Yes Status: Chronic Assessment and plan: Due to underlying COPD. Patient is on 4 L/m home oxygen. Qualifiers: Respiratory failure complication: hypoxia Qualified Code(s): J96.11 - Chronic respiratory failure with hypoxia - Time Spent With Patient Total time spent is greater than 50% in coordination of care (as documented) at patient's floor/unit and/or counseling patient: - Subjective Interval history: Reports feeling tired. Awaiting liver biopsy today. Platelet count improved. No chest pain, shortness of breath, palpitations. - Constitutional Vitals: Temp Pulse Resp BP Pulse Ox 98.6 F 101 16 160/77 95 01/16/18 11:02 01/16/18 11:02 01/16/18 11:02 01/16/18 11:02 01/16/18 11:24 General appearance: Present: A&O X 3, answers questions appropriately - Respiratory Respiratory exam: Present: CTAB (coarse breath sounds B/L). Absent: accessory muscle use, rales, rhonchi, wheezes - Cardiovascular Cardiovascular exam: Present: RRR, +S1, +S2. Absent: diastolic murmur, gallop, rubs, systolic murmur - GI/Abdominal GI/Abdominal exam: Present: normal bowel sounds, soft, no peritoneal signs. Absent: distended, tenderness - Extremities Exam Extremities exam: Present: full ROM, warm, radial pulses palpable and symmetrical. Absent: calf tenderness, cyanotic, pedal edema - Neurological Exam Neurological exam: Present: CN II-XII intact, oriented X3, no focal deficits. Absent: pronater drift, facial droop, speech deficit Internal Medicine: Result - Labs CBC & Chem 7: 01/16/18 06:30 01/16/18 04:00 Labs: Short CBC 01/16/18 Range/Units 06:30 WBC 7.3 (4.3-11.1) K/mcL Hgb 8.8 L (11.5-15.4) g/dL Hct 28.1 L (35.3-44.9) % Plt Count 69 L D (140-400) K/mcL Neutrophils # 6.7 (1.6-8.9) K/mcL BMP 01/16/18 04:00 Sodium 140 Potassium 3.8 Chloride 96 L Carbon Dioxide 30 H BUN 37 H Creatinine 4.09 H Glucose 116 H Calcium 9.2 - ABG Interpretation ABG results: PT/INR, D-dimer PT 12.2 Seconds (9.4-12.1) H 01/10/18 16:47 - VTE Documentation of Mechanical Device: Intermittent pneumatic compression device Consult Discharge Plan - Plan Referrals: Yonatan Aleman DO [Primary Care Provider] - 01/23/18 2:00 pm ()
[2018-01-16] MEDS ORDERED: *HR* Midazolam HCl 2 MG/2 ML VIAL IVP ONE (14:31)
[2018-01-16] MEDS ORDERED: *HR* FentaNYL (PF) 100 MCG/2 ML VIAL IVP ONE (14:31)
--- NOTE | 2018-01-16 14:32 | Pre-Sedation Evaluation ---
Pre-sedation evaluation - Pre-sedation checklist Date of procedure: 01/16/18 Procedure: egd Recent Vitals: Last Vital Signs Temp 98.6 F 01/16/18 11:02 Pulse 101 01/16/18 11:02 Resp 16 01/16/18 11:02 BP 160/77 01/16/18 11:02 Pulse Ox 95 01/16/18 11:24 H&P (including ROS) documented in medical record: Yes Previous reaction to sedatives/anesthetics: No Dietary Status: NPO after Midnight Airway Assessment: Patient can open mouth completely, TMJ function normal, Micrognathia (under-bite, receding chin) absent, Neck with adequate range of motion Dentition: dentures removed Possible difficult airway: No ASA Classification *see protocol: CLASS II-Mild systemic disease Plan of Care: Pt appropriate candidate for procedure/moderate/conscious sedation , Risks/benefits of procedure/sedation discussed w/ patient/family, If not NPO; Risk of intake outweiged by necessity to perform procedure
--- NOTE | 2018-01-16 14:54 | IR Procedure Note ---
Date of procedure: 01/16/18 Consent Obtained: Written consent Timeout: Correct patient and procedure verified, Correct site verified, Time out performed, Skin prep completed Indications: liver lesions Procedure Performed: liver biopsy Was there an assistant football coach present: No Site/Technique: left lobe, 18G gun, 4 cores Results/Findings: diagnostic Estimated blood loss (cc): 0 Complications: None; Tolerated procedure well Post Procedure Treatment Plan: dc to floor Specimen: liver [id number]
[2018-01-16] MEDS: traZODone 50 MG TABLET PO SCH (20:11)
[2018-01-16] MEDS ORDERED: *HR* OxyCODONE Immed Rel 5 MG TABLET PO PRN (20:19)
[2018-01-17] MEDS: Levalbuterol 1 PUFF INHALER IH SCH ×5 (00:24→15:55)
[2018-01-17 04:25] LABS: Red Cell Distribution Width 15.6 % (11.5-14.5)
[2018-01-17 04:26] LABS: Basophils % 0.2 %; Hematocrit 26.4 % (35.3-44.9); Hemoglobin 8.3 g/dL (11.5-15.4); Immature Granulocytes % 1.3 % (0-4); Immature Platelets 3.1 % (1.1-6.1); Lymphocytes % 3.2 %; Mean Corpuscular HGB Conc 31.4 g/dL (31.6-35.5); Mean Corpuscular Hemoglobin 32.4 pg (28.0-33.3); Mean Corpuscular Volume 103.1 fL (83.0-100.0); Mean Platelet Volume 10.4 fL (9.4-12.4); Red Blood Count 2.56 M/mcL (3.82-4.97); Segmented Neutrophils % 89.3 %
[2018-01-17 04:27] LABS: Lymphocytes # 0.2 K/mcL (0.6-4.6); Monocytes # 0.3 K/mcL (0.0-1.3); Neutrophils # 4.1 K/mcL (1.6-8.9); Nucleated Red Blood Cells 0.4 /100 WBC (0)
[2018-01-17 04:31] LABS: Platelet Count 56 K/mcL (140-400)
[2018-01-17 04:42] LABS: Calcium 8.6 mg/dL (8.6-10.3); Phosphorous 6.9 mg/dL (2.7-4.5)
[2018-01-17 04:44] LABS: Macrocytosis Present (Not Present); Platelet Estimate Decreased (Normal)
[2018-01-17] MEDS ORDERED: 0.9 % Sodium Chloride 2,000 ML ONE (06:18)
[2018-01-17] MEDS ORDERED: *HR* OxyCODONE Immed Rel 5 MG TABLET PO PRN (07:39)
[2018-01-17] MEDS ORDERED: 0.9 % Sodium Chloride 250 ML IVC PRN (08:24)
--- NOTE | 2018-01-17 08:24 | Nephrology Progress Note ---
Date of Encounter: 01/17/18 Time of Encounter: 08:23 - Assessment and Plan (1) End stage renal disease Current Visit: No Status: Chronic The patient will undergo dialysis today and a 3K bath. She has been placed on Aranesp for her anemia. Biopsy results from the liver are pending. (2) COPD (chronic obstructive pulmonary disease) Current Visit: Yes Status: Chronic Qualifiers: COPD type: emphysema Emphysema type: unspecified Qualified Code(s): J43.9 - Emphysema, unspecified (3) Anemia, chronic renal failure Current Visit: No Status: Acute Qualifiers: Chronic kidney disease stage: stage 5 Qualified Code(s): N18.5 - Chronic kidney disease, stage 5; D63.1 - Anemia in chronic kidney disease Subjective Interval history: The patient is currently resting comfortably. She status post liver biopsy yesterday. She will undergo her usual dialysis today without heparin. Vital signs are stable. Potassium is 4.0. Objective - Vital Signs Vital signs: Vital Signs Temp Pulse Resp BP Pulse Ox 01/17/18 07:16 98.3 F 83 18 132/63 01/17/18 04:06 97.9 F 78 16 130/37 91 01/17/18 00:20 98.9 F 82 16 114/50 90 01/16/18 20:40 16 94 01/16/18 19:11 98.3 F 92 16 133/63 93 01/16/18 16:15 16 91 01/16/18 15:35 98.8 F 87 16 148/72 90 01/16/18 14:43 82 12 120/54 96 01/16/18 14:39 80 12 122/55 96 01/16/18 11:24 95 01/16/18 11:02 98.6 F 101 16 160/77 90 Intake and Output 01/16/18 01/17/18 01/17/18 23:59 07:59 15:59 Intake Total 0 / 0 Balance 0 / 0 Intake: Oral 0 / 0 Other Other: Weight 55.6 kg Patient Weight 01/17/18 23:59 Weight 55.6 kg - General Appearance Exam: Patient is in no acute distress. Lungs diminished breath sounds bilaterally. Heart regular rate and rhythm. Abdomen is benign. There is no peripheral edema. - Lab 01/17/18 04:00 01/17/18 04:00 Most recent lab results Calcium 8.6 mg/dL (8.6-10.3) 01/17/18 04:00 Phosphorus 6.9 mg/dL (2.7-4.5) H 01/17/18 04:00 Magnesium 2.0 mg/dL (1.6-2.6) 01/13/18 04:15 - VTE Documentation of Mechanical Device: Intermittent pneumatic compression device Consult Discharge Plan - Plan Referrals: Yonatan Aleman DO [Primary Care Provider] - 01/23/18 2:00 pm ()
[2018-01-17] MEDS: Budesonide/Formoterol 80/4.5 MDI IH SCH (11:00)
[2018-01-17] MEDS: predniSONE 20 MG TABLET PO SCH (11:07)
[2018-01-17] MEDS: Renal Vitamin 1 MG CAPSULE PO SCH (11:08)
[2018-01-17] MEDS: Folic Acid 1 MG TABLET PO SCH (11:08)
[2018-01-17] MEDS: hydrALAZINE 25 MG TABLET PO SCH (11:16)
--- NOTE | 2018-01-17 14:54 | Discharge Summary ---
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; had liver biopsy, pending report; has Oncology f/up; Orders not resulted at time of discharge: Pending orders 01/10/18 18:44 Platelets [BBK] Stat Poly MAINE With Reflex to IgG [BBK] Stat Type and Screen [BBK] Stat 01/12/18 20:29 Surgical Pathology [PTH] Routine 01/18/18 04:00 Basic Metabolic Panel AM 0400 CBC [Complete Blood Count] [HEME] AM 0400 01/19/18 04:00 Basic Metabolic Panel AM 0400 CBC [Complete Blood Count] [HEME] AM 0400 01/20/18 04:00 Basic Metabolic Panel AM 0400 CBC [Complete Blood Count] [HEME] AM 0400 Date of Encounter: 01/17/18 Time of Encounter: 10:30 - Discharge Diagnosis (1) Thrombocytopenia Priority: Primary Status: Chronic (2) Lung mass Priority: Primary Status: Acute (3) New onset atrial fibrillation Priority: Primary Status: Resolved (4) CAD (coronary artery disease) Priority: Secondary Status: Chronic Qualifiers: Coronary Disease-Associated Artery/Lesion type: bypass graft [place] vs. 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 Qualified Code(s): E03.8 - Other specified hypothyroidism; E06.3 - Autoimmune thyroiditis (7) Depression with anxiety Priority: Secondary Status: Chronic (8) Elevated troponin Priority: Primary Status: Acute (9) End stage renal disease Priority: Secondary Status: Chronic (10) Metastases to the liver Priority: Primary Status: Acute (11) Hypertension Priority: Secondary Status: Chronic Qualifiers: Hypertension type: essential hypertension Qualified Code(s): I10 - Essential (primary) hypertension (12) Chronic respiratory failure Priority: Secondary Status: Chronic Qualifiers: Respiratory failure complication: hypoxia Qualified Code(s): J96.11 - Chronic respiratory failure with hypoxia Hospital course: Ms. Orellana is a 67 year old female with the above medical problems, admitted with shortness of breath and weakness. She was noted to have missed HD sessions and noted to be in volume overload and hyperkalemia. Nephrology was consulted and she underwent regular HD sessions. Patient was noted to have leukocytosis at admission with no clear source of infection. Oncology was consulted, routine CT chest/abdomen/pelvis was obtained , which showed an incidental finding of right middle lobe spiculated lung mass along with lesions in the liver in T10 vertebra, concerning for metastasis. 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 She subsequently underwent liver biopsy by interventional radiology, pathology report pending. Patient is currently medically stable for discharge. Case was discussed with oncology nurse practitioner, Kaylen Stubbs and she is safe for discharge from oncology standpoint, would obtain early outpatient follow-up. Her current condition and diagnosis were also explained to patient's son at bedside, who verbalized understanding. Discharge discussed with: patient, nurse, contact center consultant - Time Spent with Patient Total time spent providing and/or coordinating discharge services: Greater than 30 minutes (45 min) - Discharge Medications Prescriptions: amLODIPine [Norvasc] 5 mg PO BID #60 tablet hydrALAZINE [HydrALAZINE] 25 mg PO TID #90 tablet Metoprolol [Lopressor] 25 mg PO BID #60 tablet predniSONE [PredniSONE] 60 mg PO DAILY 7 Days tablet Home Medications: Atorvastatin [Lipitor] 40 mg PO HS 06/02/15 [History] Levothyroxine [Synthroid] 200 mcg PO QAM 06/02/15 [History] OxyCODONE Immed Rel [Roxicodone 10 MG] 10 mg PO Q6H PRN 06/02/15 [History] Docusate [Colace] 100 mg PO BID PRN 09/22/15 [History] B Complex with Vitamin C [[place]-Bee with C] 1 tab PO DAILY 02/22/16 [History] Sevelamer [Renvela] 1,600 mg PO TIDWM 08/29/16 [History] Fluticasone/Salmeterol [Advair Hfa 115-21 Mcg Inhaler] 2 puff IH BID 11/14/16 [ History] Ipratropium/Albuterol Neb [Duoneb] 3 ml IH QID PRN 11/14/16 [History] Renal Vitamin [Renal Caps Softgel] 1 mg PO DAILY 11/14/16 [History] Umeclidinium [place] [Incruse Ellipta] 62.5 mcg IH DAILY 11/12/17 [History] Albuterol Sulfate [Proair Hfa] 2 puff IH Q4-6H PRN 01/10/18 [History] Citalopram Hydrobromide [Celexa] 20 mg PO DAILY 01/10/18 [History] Folic Acid 1 mg PO DAILY 01/10/18 [History] Omeprazole [PriLOSEC] 40 mg PO DAILY 01/10/18 [History] Metoprolol [Lopressor] 25 mg PO BID #60 tablet 01/17/18 [Rx] amLODIPine [Norvasc] 5 mg PO BID #60 tablet 01/17/18 [Rx] hydrALAZINE [HydrALAZINE] 25 mg PO TID #90 tablet 01/17/18 [Rx] predniSONE [PredniSONE] 60 mg PO DAILY 7 Days tablet 01/17/18 [Rx] Allergies/Adverse Reactions: 3 Allergy/AdvReac Type Severity Reaction Status Date / Time ceftriaxone [From Rocephin] Allergy Hives Verified 01/09/18 21:52 levofloxacin [From Levaquin] Allergy Hives Verified 01/09/18 21:52 Date of admission: 01/10/18 01:10 Primary care physician: Yonatan Aleman, Consults: 01/10/18 10:00 Consult to Dialysis [CONS] ONCE 01/10/18 16:48 Consult to Cardiology [CONS] Routine Comment: Consulting Provider: Cardiology Kriss Reason for Consult: new afib RVR Time Notified: 16:49 Call Completed: Yes 01/10/18 19:50 Consult to Oncology [CONS] Routine Consulting Provider: Oncology [facility] [place] Reason for Consult: Thrombocytopenia-need for anticoagulation Time Notified: 17:00 Call Completed: Yes 01/11/18 10:45 Consult to Dialysis [CONS] ONCE 01/12/18 08:04 Consult to Pulmonology [CONS] Routine Consulting Provider: [facility] [place] Reason for Consult: lung mass, liver mets Call Completed: Yes 01/12/18 09:15 Consult to Dialysis [CONS] ONCE 01/15/18 08:30 Consult to Dialysis [CONS] ONCE 01/15/18 20:29 Consult to Interventional Radiology [CONS] Routine Consulting Provider: Radiology Delfina Colrafa Reason for Consult: CT guided biopsy liver lesion Call Completed: No 01/17/18 08:30 Consult to Dialysis [CONS] ONCE Discharging clinician: Cassy Astudillo Anticipated date of discharge: 01/17/18 - Constitutional Vitals: Temp Pulse Resp BP Pulse Ox 98.4 F 94 18 89/43 91 01/17/18 11:37 01/17/18 11:37 01/17/18 11:37 01/17/18 14:20 01/17/18 11:37 General appearance: Present: A&O X 3, answers questions appropriately - Cardiovascular Cardiovascular exam: Present: RRR, +S1, +S2, systolic murmur. Absent: diastolic murmur, gallop, rubs - Patient Status Disposition: Home Health Service Condition: Fair Functional capacity at discharge: uses cane/walker Overall status at discharge: patient is progressing back to baseline - Discharge Instructions Follow Up With: Yonatan Aleman DO [Primary Care Provider] - 01/23/18 2:00 pm () Laureen Armenta MD [Partnered Physician] - 01/23/18 8:00 am (Please follow up as schedule...) Additional Instructions: F/up with Oncology in 5-7 days - Diet and Activity Activity: as per physical therapy, wear oxygen at all times Diet: low fat, low cholesterol, low salt diet, other (renal diet) - VTE Documentation of Mechanical Device: Intermittent pneumatic compression device
--- NOTE | 2018-01-17 15:24 | Physician Discharge Referral ---
Home Health/Hosp Referral Info Transfer to: Home Health Attending Provider: Cassy Astudillo Provider in Charge Post Discharge: PCP - Diagnosis (1) Thrombocytopenia Priority: Primary Status: Chronic (2) Lung mass Priority: Primary Status: Acute (3) New onset atrial fibrillation Priority: Primary Status: Resolved (4) CAD (coronary artery disease) Priority: Secondary Status: Chronic (5) COPD (chronic obstructive pulmonary disease) Priority: Secondary Status: Chronic (6) Hypothyroidism Priority: Secondary Status: Chronic (7) Depression with anxiety Priority: Secondary Status: Chronic (8) Elevated troponin Priority: Primary Status: Acute (9) End stage renal disease Priority: Secondary Status: Chronic (10) Metastases to the liver Priority: Primary Status: Acute (11) Hypertension Priority: Secondary Status: Chronic (12) Chronic respiratory failure Priority: Secondary Status: Chronic - Respiratory Orders Oxygen / L per min (2L/min via [place]) Smoking Cessation: Smoking cessation has been advised. For more information, call the [employer] Tobacco Quit Line at 9-318-AXYQ-NOW. - Diet/Nutrition Diet/Nutrition Orders: Renal, Cardiac - Activity Activity Orders: Ambulate, Walker - Services Needed Following services are medically necessary services: Nursing, Physical Therapy, Occupational Therapy - Transfer Medications Prescriptions: amLODIPine [Norvasc] 5 mg PO BID #60 tablet hydrALAZINE [HydrALAZINE] 25 mg PO TID #90 tablet Metoprolol [Lopressor] 25 mg PO BID #60 tablet predniSONE [PredniSONE] 60 mg PO DAILY 7 Days tablet Home Medications: Atorvastatin [Lipitor] 40 mg PO HS 06/02/15 [History] Levothyroxine [Synthroid] 200 mcg PO QAM 06/02/15 [History] OxyCODONE Immed Rel [Roxicodone 10 MG] 10 mg PO Q6H PRN 06/02/15 [History] Docusate [Colace] 100 mg PO BID PRN 09/22/15 [History] B Complex with Vitamin C [Mary [place]-Bee with C] 1 tab PO DAILY 02/22/16 [History] Sevelamer [Renvela] 1,600 mg PO TIDWM 08/29/16 [History] Fluticasone/Salmeterol [Advair Hfa 115-21 Mcg Inhaler] 2 puff IH BID 11/14/16 [ History] Ipratropium/Albuterol Neb [Duoneb] 3 ml IH QID PRN 11/14/16 [History] Renal Vitamin [Renal Caps Softgel] 1 mg PO DAILY 11/14/16 [History] Umeclidinium [place] [Incruse Ellipta] 62.5 mcg IH DAILY 11/12/17 [History] Albuterol Sulfate [Proair Hfa] 2 puff IH Q4-6H PRN 01/10/18 [History] Citalopram Hydrobromide [Celexa] 20 mg PO DAILY 01/10/18 [History] Folic Acid 1 mg PO DAILY 01/10/18 [History] Omeprazole [PriLOSEC] 40 mg PO DAILY 01/10/18 [History] Metoprolol [Lopressor] 25 mg PO BID #60 tablet 01/17/18 [Rx] amLODIPine [Norvasc] 5 mg PO BID #60 tablet 01/17/18 [Rx] hydrALAZINE [HydrALAZINE] 25 mg PO TID #90 tablet 01/17/18 [Rx] predniSONE [PredniSONE] 60 mg PO DAILY 7 Days tablet 01/17/18 [Rx] Allergies/Adverse Reactions: 3 Allergy/AdvReac Type Severity Reaction Status Date / Time ceftriaxone [From Rocephin] Allergy Hives Verified 01/09/18 21:52 levofloxacin [From Levaquin] Allergy Hives Verified 01/09/18 21:52 Certification: Further, I certify that my clinical findings support that this patient is homebound (i.e. absences from home require considerable and taxing effort and are for medical reasons or uatsdin services or infrequently or short duration when for other reasons) because: Homebound Reason: Patient requires assistance of a person or device to safely leave home, Leaving home requires considerable and taxing effort due to condition Attestation: My signature below is to certify that this patient is under my care and that I, or nurse practitioner, or a physician's environmental assistant working with me, has a face-to -face encounter with this patient.
[2018-01-17 16:09] VITALS: BP 116/57
--- NOTE | 2018-01-17 16:49 | Oncology Inp Progress Note ---
Date of Encounter: 01/17/18 Time of Encounter: 16:00 (1) Thrombocytopenia Status: Chronic Assessment and plan: Appears chronic and intermittent since 2015, acutely worsened. Etiology somewhat unclear but ITP suspected. Other differentials include secondary to liver lesion, hepatic congestion, splenic sequestration Abdomen/Pelvis CTA from 2017 notes splenomegaly. Her thrombocytopenia is improving with trial of prednisone. Will plan to continue at discharge and may taper on an outpatient basis next week TBD by Dr. Fitch on outpatient basis with follow up CBC (2) Lung mass Status: Acute Assessment and plan: CT chest/abdomen/pelvis reveals findings concerning for potential primary lung carcinoma with finding of new lobulated masslike opacity within the right middle lobe, along with findings concerning innumerable liver metastases, bone metastases and mediastinal lymphadenopathy. CT findings concerning for wide spread metastatic disease, potential lung primary. In discussion with patient, she wishes to pursue biopsy and treatment. Patient is aware that she needs to attend her dialysis sessions in order to receive chemotherapy/immunotherapy treatments. S/P CT guided biopsy of liver lesion-pathology pending I had a long discussion with patients son at bedside today. We reviewed her imaging reports and discussed concern for malignancy, likely primary lung cancer. Her pathology report is still pending, patients son was given the follow up information for next week with Dr. Fitch to discuss results. He informed me of her noncompliance with doctors appointments and dialysis. He states he simply cannot get her to go to most appointments. She has been depressed since the passing of her . I discussed with him that we did offer and discuss hospice with her on multiple occasions but she wanted to pursue biopsy and treatment. He states he is not sure if he will be able to get her to follow up next week but will try. I urged the importance of her follow up if she wants treatment however, if she does not then Hospice would be a good alternative for her in which case he may call our office and we can see how we may help to set up hospice if needed. (3) Anemia in chronic kidney disease Status: Chronic Assessment and plan: Hgb -improving. S/P aranesp weekly per nephrology Multifactorial-Anemia of chronic disease-CKD, secondary to new findings suggestive of malignancy Macrocytosis She had an EGD with treatment of an oozing gastric ulcer during prior admission. She denies any s/s of bleeding such as hemoptysis, hematochezia or melena. Iron, Ferritin, B12, Folate-replete SPEP-no monoclonal proteins LDH 338 [place]-negative Qualifiers: Chronic kidney disease stage: unspecified stage Qualified Code(s): N18.9 - Chronic kidney disease, unspecified; D63.1 - Anemia in chronic kidney disease; D63.1 - Anemia in chronic kidney disease Oncology: Subj Interval history: Ms. Orellana is resting in bed. She reports her pain is controlled. She denies nausea or vomiting. Her son is at bedside. She has given me permission to discuss her health information with her son today, with whom she lives with. She is planned to discharge home soon. While she has given me permission to speak with her son she has asked that we discuss outside the room as she says she does not want to hear the results of her imaging and discussion of her malignancy again. - Constitutional Vitals: Vital Signs Temp Pulse Resp BP Pulse Ox 01/17/18 16:05 98.2 F 91 20 116/57 91 01/17/18 15:55 16 92 01/17/18 14:45 97.4 F L 16 110/60 01/17/18 14:35 92/50 01/17/18 14:20 89/43 01/17/18 14:05 90/48 01/17/18 13:50 104/56 01/17/18 13:35 102/60 01/17/18 13:20 104/64 01/17/18 13:05 101/53 01/17/18 12:50 97/54 01/17/18 12:35 102/52 01/17/18 12:20 105/54 01/17/18 12:05 112/55 01/17/18 11:50 120/52 01/17/18 11:37 98.4 F 94 18 127/55 91 01/17/18 11:35 99.4 F 17 113/53 01/17/18 11:00 16 92 01/17/18 07:16 98.3 F 83 18 132/63 01/17/18 04:06 97.9 F 78 16 130/37 91 01/17/18 00:20 98.9 F 82 16 114/50 90 01/16/18 20:40 16 94 01/16/18 19:11 98.3 F 92 16 133/63 93 Intake and Output 01/17/18 01/17/18 01/17/18 07:59 15:59 23:59 Intake Total 0 / 0 720 / 720 Output Total 1600 / 1600 Balance 0 / 0 -880 / -880 Intake: Oral 0 / 0 120 / 120 Intake, Rinseback and Flushes 600 / 600 Output: Urine 0 / 0 Total Dialysis (HD) Output 1600 / 1600 Other: Meal Breakfast Percent of Meal Consumed 100% Weight 55.6 kg Hemodialysis Net Fluid Removed 1000 (mL) Patient Weight 01/17/18 23:59 Weight 55.6 kg General appearance: cooperative, no acute distress, no febrile Exam: chronically ill appearing - Head Head exam: Present: atraumatic - ENT ENT exam: Present: mucous membranes moist - Respiratory Respiratory exam: Present: decreased breath sounds, wheezes. Absent: respiratory distress - Cardiovascular Cardiovascular exam: Present: RRR, +S1, +S2 - GI/Abdominal GI/Abdominal exam: Present: normal bowel sounds, soft. Absent: tenderness - Extremities Exam Extremities exam: Present: normal inspection. Absent: calf tenderness - Neurological Exam Neurological exam: Present: alert, oriented X3, no focal deficits, strengths equal and symetr throughout - Psychiatric Psychiatric exam: Present: depressed, flat affect - Skin Skin exam: Present: dry, intact, normal color, warm Oncology: Obj Data - Labs CBC & Chem 7: 01/17/18 04:00 01/17/18 04:00 - Impressions Impressions Liver Biopsy CT 01/16/18 00:00 IMPRESSION: Successful CT guided core biopsy of the liver lesion. D/ / 01/16/2018 16:32:57 Romi Golden MD / [facility] Interpreting Provider: Romi Golden MD - ABG Interpretation ABG results: PT/INR, D-dimer PT 12.2 Seconds (9.4-12.1) H 01/10/18 16:47 Consult Discharge Plan - Plan Additional Instructions: F/up with Oncology in 5-7 days Referrals: Yonatan Aleman DO [Primary Care Provider] - 01/23/18 2:00 pm () Laureen Armenta MD [Partnered Physician] - 06/19/18 8:00 am (Please follow up as schedule...) Prescriptions: amLODIPine [Norvasc] 5 mg PO BID #60 tablet hydrALAZINE [HydrALAZINE] 25 mg PO TID #90 tablet Metoprolol [Lopressor] 25 mg PO BID #60 tablet predniSONE [PredniSONE] 60 mg PO DAILY 7 Days tablet
== END 2018-01-17 17:19 | disposition home health service (06) | DRG 291 ==
LOC: EMEROO 21:47 → 2SOUTHHOLD 21:47 → SUATTDRO 01-10 01:10 → 2SOUTHHOLD 01-10 02:05 → 2ANU 01-10 13:48 → ICNU 01-10 19:28 → 2ANU 01-11 16:47
PROVIDERS: ADMIT Internal Medicine; ATTEND Internal Medicine
PROC: IRLIVER (2018-01-16 13:00)

== ENCOUNTER 2018-01-18 18:22 | Inpatient (IN) ==
--- NOTE | 2018-01-18 21:34 | Internal Med History&Physical ---
Date of Encounter: 01/18/18 Time of Encounter: 21:11 Internal Medicine - H&P: HPI Chief complaint: syncope Admitted From: Home Plans for Post Hospital Care: Home History of present illness: Ms. Orellana is a 67 year old female with past medical history of HTN, HLD, former smoker, lung cancer with liver mets, COPD with chronic respiratory failure on 4 L NC of oxygen, ESRD-HD M/W/F, medical non-compliance to dialysis, CHF, CAD s/p CABG, ruptured aneurysm of thoracoabdominal aorta, bilateral carotid artery stenosis, gastric ulcer/GI bleed, Hx of severe bilateral mastoiditis (seen on MRI brain 01/02/2016). Pt was discharged yesterday after management for ESRD. According to daughter, pt had missed her HD M/W the week prior, hence the reason for her admission. While admitted she was informed that she had lung mass with mets to the liver. Accroding to the daughter, who was at bedside, pt had been scheduled for appointment previously with oncology but pt refusd to go. On this recent admission she was elauted bby oncology and recommendation was made to pt for hospice, however she declined. Daughter reports that she was supposed to be seen by Vascular last Monday, due to hx abdominal aneurysm, however they had to cancel the appoitment after finding out about lung CA with mets. Pt had infomred oncology that she wanted ot proceed with bx and that was done prior to her discharge. Today, while home care nurse was visiting pt had a syncopal episode. Home care nurse reported to family that he felt she did not have a pulse and initiated chest compression. EMS was called. Apparently pt went into V fib in route and EMS proceeded to cardiovert her. Pt was taken to [facility] and then transferred here for further evaluation. According to pt's daughter, pt's 2 months ago. At that time both pt and her where admitted into ICU. SHe was transfered to the floor but . Daughter states they had to hold off on arrangements until pt was discharged home. Daughter reports that pt has been having a hard time dealing with health issues and recent passing of her father. Pt only has 2 children, her ad her brother. They have Living Will signed but brother has yet to notarize it. Daughter states he plans to do that tomorrow, 01/19/2018. Pt request to remain a FULL CODE. At [facility] work up showed WBC 9.5, hgb 10.1, hct 33.4. PT 13.6, INR 1.3, Na 141, K 4.5, BUN 45, Cr 4.30, lactic acid 4.1, AST 60, ALT 16, Alk phos 121. CXR shows middle lobe mass. Past Med Surg Social Fam HX - Past Medical History Medical history: arthritis, cancer, CHF, COPD, coronary artery disease, dialysis , hyperlipidemia, hypertension, renal disease, thyroid disease Additional medical history: Dialysis M-W-F Psychiatric history: anxiety, depression - Past Surgical History Surgical History: coronary bypass (CABG), other (Left arm dialysis shunt) Additional surgical history: kidney stents. DIALYSIS SHUNT left arm - Social History Smoking Status: Current every day smoker Smokeless Tobacco Status: No Alcohol use: none Drug use: none - Family History Brother Family Member Ethnicity: Unknown Hx Family Cardiac Disorders: Yes (one brother passed sudden heart attack) Mother Living Status: Hx Family Cancer: Yes (lung cancer) Father Living Status: Hx Family Cancer: Yes (lung cancer) Internal Medicine - H&P: Meds Atorvastatin [Lipitor] 40 mg PO HS 06/02/15 [History] Levothyroxine [Synthroid] 200 mcg PO QAM 06/02/15 [History] OxyCODONE Immed Rel [Roxicodone 10 MG] 10 mg PO Q6H PRN 06/02/15 [History] Docusate [Colace] 100 mg PO BID PRN 09/22/15 [History] B Complex with Vitamin C [[place] with C] 1 tab PO DAILY 02/22/16 [History] Sevelamer [Renvela] 1,600 mg PO TIDWM 08/29/16 [History] Fluticasone/Salmeterol [Advair Hfa 115-21 Mcg Inhaler] 2 puff IH BID 11/14/16 [ History] Ipratropium/Albuterol Neb [Duoneb] 3 ml IH QID PRN 11/14/16 [History] Renal Vitamin [Renal Caps Softgel] 1 mg PO DAILY 11/14/16 [History] Umeclidinium [place] [Incruse Ellipta] 62.5 mcg IH DAILY 11/12/17 [History] Albuterol Sulfate [Proair Hfa] 2 puff IH Q4-6H PRN 01/10/18 [History] Citalopram Hydrobromide [Celexa] 20 mg PO DAILY 01/10/18 [History] Folic Acid 1 mg PO DAILY 01/10/18 [History] Omeprazole [PriLOSEC] 40 mg PO DAILY 01/10/18 [History] Metoprolol [Lopressor] 25 mg PO BID #60 tablet 01/17/18 [Rx] amLODIPine [Norvasc] 5 mg PO BID #60 tablet 01/17/18 [Rx] hydrALAZINE [HydrALAZINE] 25 mg PO TID #90 tablet 01/17/18 [Rx] predniSONE [PredniSONE] 60 mg PO DAILY 7 Days tablet 01/17/18 [Rx] 3 Allergy/AdvReac Type Severity Reaction Status Date / Time ceftriaxone [From Rocephin] Allergy Hives Verified 01/09/18 21:52 levofloxacin [From Levaquin] Allergy Hives Verified 01/09/18 21:52 All Systems PM: A 10-system review of systems was performed and is negative for pertinent findings except as documented above in the HPI. - Constitutional Vitals: Temp Pulse Resp BP Pulse Ox 97.9 F 97 16 122/65 96 01/18/18 19:51 01/18/18 19:51 01/18/18 19:51 01/18/18 19:51 01/18/18 19:51 General appearance: Present: A&O X 3, no acute distress - Head Head exam: Present: atraumatic, normocephalic - Eye Eye exam: Present: PERRL, conjuntiva pink, sclera anicteric Pupils: Present: PERRL - Neck Neck exam general surgery: Present: supple, trachea midline. Absent: lymphadenopathy - Respiratory Respiratory exam: Present: rales, rhonchi. Absent: accessory muscle use, CTAB, wheezes Additional comments: crackles bilaterally - Cardiovascular Cardiovascular exam: Present: RRR, +S1, +S2. Absent: diastolic murmur, gallop, rubs, systolic murmur - GI/Abdominal GI/Abdominal exam: Present: normal bowel sounds, soft, no peritoneal signs. Absent: distended, tenderness - Extremities Exam Extremities exam: Present: warm, radial pulses palpable and symmetrical. Absent : calf tenderness, cyanotic, pedal edema - Neurological Exam Neurological exam: Present: CN II-XII intact, oriented X3, no focal deficits. Absent: pronater drift, facial droop, speech deficit - Skin Skin exam: Present: dry, intact - Assessment and plan (1) Syncope and collapse Current Visit: Yes Status: Acute Assessment and plan: Unclear at this time what actually happened. Pt states she does not recall events that led to her passing out. Apparently pt came around shortly after chest compression where initiated. Pt was also reported to have been cardioverted on route by EMS due to V fib but no rhythm strip sent for verification. Will monitor pt on telemetry for now. Will resume her cardiac meds. (2) End stage renal disease Current Visit: No Status: Chronic Assessment and plan: Will consult nephrology. (3) COPD (chronic obstructive pulmonary disease) Current Visit: No Status: Chronic Assessment and plan: Not in exacerbation. Will resume home nebs and oxygen. Qualifiers: COPD type: emphysema Emphysema type: unspecified Qualified Code(s): J43.9 - Emphysema, unspecified (4) Hypertension Current Visit: No Status: Chronic Assessment and plan: Norvasc, Metoprolol, and Hydralazine Qualifiers: Hypertension type: essential hypertension Qualified Code(s): I10 - Essential (primary) hypertension (5) CAD (coronary artery disease) Current Visit: No Status: Chronic Assessment and plan: ASA and Lipitor Qualifiers: Coronary Disease-Associated Artery/Lesion type: bypass graft [place] vs. transplanted heart: [place] heart Associated angina: without angina Qualified Code(s): I25.810 - Atherosclerosis of coronary artery bypass graft(s) without angina pectoris (6) Cardiac arrest Current Visit: No Status: Acute Assessment and plan: Pt has had vasovagal syncope before. Pt responded to chest compressions. It was not reported that any meds where given during CPR. (7) Ventricular fibrillation Current Visit: No Status: Acute Assessment and plan: Pt was reportedly cardioverted by EMT but no strips where sent with her. Will monitor on tele - Time Spent With Patient Total time spent is greater than 50% in coordination of care (as documented) at patient's floor/unit and/or counseling patient: 25 - 35 minutes
[2018-01-18] MEDS ORDERED: Naloxone 0.4 MG/ML INJ IVP PRN (22:19)
[2018-01-18] MEDS ORDERED: *HR* HYDROcodone/Acet 5/325 mg TABLET PO PRN (22:28)
[2018-01-18] MEDS ORDERED: Acetaminophen 325 MG TABLET PO PRN (22:28)
[2018-01-18] MEDS: Ipratropium/Albuterol Neb 3 ML IH SCH (23:26)
[2018-01-18] MEDS: *HR* OxyCODONE Immed Rel 5 MG TABLET PO SCH (23:51)
[2018-01-19] MEDS ORDERED: Nitroglycerin 0.4 MG TAB.SUBL SL PRN (00:38)
[2018-01-19] MEDS ORDERED: *HR* Heparin 5,000 UNIT/ML VIAL IVP ONE (02:39)
[2018-01-19] MEDS ORDERED: *HR* Heparin 5,000 UNIT/ML VIAL IVP PRN ×2 (02:39)
--- NOTE | 2018-01-19 02:47 | Event Note ---
Date of Encounter: 01/19/18 Time of Encounter: 02:47 NSTEMI/ACS Pt's repeat troponin 7.09 up from 3.88. Case discussed with cardiology and will see in consult. Agrees with starting heparin gtt. Repeat EKG shows ST and left ventricular hypertrophy.
[2018-01-19] MEDS: Heparin 25,000 UNIT/500 ML D5W 25,000 UNIT/500 ML BAG IVC SCH (03:26)
[2018-01-19 03:52] LABS: Basophils % 0.2 %; Lymphocytes % 3.5 %
[2018-01-19 03:54] LABS: Hematocrit 32.4 % (35.3-44.9); Hemoglobin 10.1 g/dL (11.5-15.4); Immature Granulocytes % 0.8 % (0-4); Immature Platelets 3.9 % (1.1-6.1); Lymphocytes # 0.2 K/mcL (0.6-4.6); Mean Corpuscular HGB Conc 31.2 g/dL (31.6-35.5); Mean Corpuscular Hemoglobin 32.4 pg (28.0-33.3); Mean Corpuscular Volume 103.8 fL (83.0-100.0); Mean Platelet Volume 10.9 fL (9.4-12.4); Monocytes # 0.3 K/mcL (0.0-1.3); Monocytes % 6.7 %; Red Blood Count 3.12 M/mcL (3.82-4.97); Red Cell Distribution Width 15.9 % (11.5-14.5); Segmented Neutrophils % 88.8 %
[2018-01-19 03:55] LABS: Neutrophils # 4.4 K/mcL (1.6-8.9); Platelet Count 44 K/mcL (140-400)
[2018-01-19 04:07] LABS: INR 1.2; Prothrombin Time 13.1 Seconds (9.4-12.1)
[2018-01-19] MEDS: Ipratropium/Albuterol Neb 3 ML IH SCH ×4 (04:08→23:34)
[2018-01-19 04:09] LABS: Activated Partial Thrombo Time 21.7 Seconds (26.0-36.0)
[2018-01-19 04:10] LABS: Potassium 4.1 mEq/L (3.5-5.1)
[2018-01-19 04:11] LABS: Platelet Estimate Decreased (Normal)
[2018-01-19] MEDS: *HR* OxyCODONE Immed Rel 5 MG TABLET PO SCH ×2 (05:06→12:07)
[2018-01-19] MEDS: Aspirin 81 MG TAB.CHEW PO SCH (08:28)
[2018-01-19] MEDS: hydrALAZINE 25 MG TABLET PO SCH ×3 (08:28→21:01)
[2018-01-19] MEDS: Renal Vitamin 1 MG CAPSULE PO SCH (08:28)
[2018-01-19] MEDS: predniSONE 20 MG TABLET PO SCH (08:28)
[2018-01-19] MEDS: Folic Acid 1 MG TABLET PO SCH (08:28)
[2018-01-19] MEDS: amLODIPine 5 MG TABLET PO SCH (08:28)
[2018-01-19] MEDS ORDERED: 0.9 % Sodium Chloride 250 ML IVC PRN (10:27)
[2018-01-19] MEDS ORDERED: 0.9 % Sodium Chloride 1,000 ML PRIME SCH (10:30)
[2018-01-19] MEDS: Budesonide/Formoterol 80/4.5 MDI IH SCH ×2 (10:32→23:34)
--- NOTE | 2018-01-19 11:12 | Cardiology Consult Note ---
<Walt Stewart R - Last Filed: 01/19/18 11:27> Date of Encounter: 01/19/18 Time of Encounter: 11:03 Assessment and Plan (1) NSTEMI (non-ST elevated myocardial infarction) Current Visit: Yes Status: Acute Troponins 3.88, 7.09. EKG sinus tach with LVH, similar to prior. Reported syncopal episode yesterday, no pulse and received chest compressions. Reported V-Fib arrest en route to ED and received shock. Pt has no recollection of events. Denies active chest pain or dyspnea. Hx of CAD and CABG in 2001. TTE 11/2017 EF preserved. Given her recent diagnosis of primary lung carcinoma with finding of new lobulated masslike opacity within the right middle lobe, along with findings concerning innumerable liver metastases, bone metastases and mediastinal lymphadenopathy and thrombocytopenia (plt 44,000), recommend medical management of NSTEMI. Discussed with pt and she agrees. Prognosis is guarded. Would recommend palliative consult to rediscuss goals of care and code status. Currently on heparin gtt. Ideally would recommend heparin gtt for 24-48 hours if no bleeding issues and if plt count remains stable. ASA, Statin, BB. Do not recommend any further cardiac testing. Anticipate sign off once seen and evaluated by Dr. Espinoza. (2) CAD (coronary artery disease) Current Visit: Yes Status: Chronic As above, known hx of CABG, per pt in 2001. ASA, Statin, BB. Qualifiers: Coronary Disease-Associated Artery/Lesion type: bypass graft [place] vs. transplanted heart: [place] heart Associated angina: without angina Qualified Code(s): I25.810 - Atherosclerosis of coronary artery bypass graft(s) without angina pectoris (3) PAF (paroxysmal atrial fibrillation) Current Visit: Yes Status: Acute PAF documented on last admission. EKGs from last admission do demonsrate A-Fib/ Flutter. Currently SR. Continue BB. [id number] 4 (Age, Female, HTN, CAD). 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 Pt aware. Continue ASA. Discussion w patient/family: The assessment and plan as outlined above was discussed with the patient and/or family members who expressed understanding and agreement. All questions were answered. Thank you for involving us in the care of your patient. Please call with any questions. I will discuss all the above with Dr. Espinoza and make changes as necessary. History of Present Illness Consult date: 01/19/18 Consult reason: NSTEMI History of present illness: Ms. Orellana is a 67 year old female with PMH of HTN, HLD, former smoker, recently diagnosed lung cancer with liver mets, COPD with chronic respiratory failure on 4 L NC of oxygen, ESRD-HD M/W/F, medical non-compliance to dialysis, CHF, CAD s/p CABG in 2001, ruptured aneurysm of thoracoabdominal aorta, bilateral carotid artery stenosis, gastric ulcer/GI bleed, Hx of severe bilateral mastoiditis (seen on MRI brain 01/02/2016). Pt was recently discharged after management for ESRD. Hx of not going to appointements. Reviewed oncology notes and hospice was discussed, but pt declined and wanted to proceed with biopsy. Yesterday home care nurse was visiting and pt reportedly had a syncopal episode. Home care nurse reported to family that he felt she did not have a pulse and initiated chest compression. EMS was called. It is reported that pt went into V fib arrest en route and received shock by EMS. Troponins 3.88, 7.01. Cardiology consulted for further recs. Pt denies active chest pain or dyspnea. She is alert and oriented x 3, but a poor historian and is unable to recall any events from yesterday. TTE 11/2017: LVEF 65%. Moderate concentric left ventricular hypertrophy. Mild left ventricular diastolic dysfunction. Atypical septal motion consistent with post-operative status. Normal right ventricular structure and function. Mild aortic regurgitation. Mild aortic sclerosis. Mean gradient 11 mmHg. No evidence of pulmonary hypertension. Past Med Surg Social Fam HX - Past Medical History Medical history: arthritis, cancer, CHF, COPD, coronary artery disease, dialysis , hyperlipidemia, hypertension, renal disease, thyroid disease Additional medical history: Dialysis M-W-F Psychiatric history: anxiety, depression - Past Surgical History Surgical History: coronary bypass (CABG), other (Left arm dialysis shunt) Additional surgical history: kidney stents. DIALYSIS SHUNT left arm - Social History Smoking Status: Current every day smoker Smokeless Tobacco Status: No Alcohol use: none Drug use: none - Family History Brother Family Member Ethnicity: Unknown Hx Family Cardiac Disorders: Yes (one brother passed sudden heart attack) Mother Living Status: Hx Family Cancer: Yes (lung cancer) Father Living Status: Hx Family Cancer: Yes (lung cancer) Medications and Allergies Atorvastatin [Lipitor] 40 mg PO HS 06/02/15 [History] Levothyroxine [Synthroid] 200 mcg PO QAM 06/02/15 [History] OxyCODONE Immed Rel [Roxicodone 10 MG] 10 mg PO Q6H PRN 06/02/15 [History] Docusate [Colace] 100 mg PO BID PRN 09/22/15 [History] B Complex with Vitamin C [Mary Ann-Bee with C] 1 tab PO DAILY 02/22/16 [History] Sevelamer [Renvela] 1,600 mg PO TIDWM 08/29/16 [History] Fluticasone/Salmeterol [Advair Hfa 115-21 Mcg Inhaler] 2 puff IH BID 11/14/16 [ History] Ipratropium/Albuterol Neb [Duoneb] 3 ml IH QID PRN 11/14/16 [History] Renal Vitamin [Renal Caps Softgel] 1 mg PO DAILY 11/14/16 [History] Umeclidinium [place] [Incruse Ellipta] 62.5 mcg IH DAILY 11/12/17 [History] Albuterol Sulfate [Proair Hfa] 2 puff IH Q4-6H PRN 01/10/18 [History] Citalopram Hydrobromide [Celexa] 20 mg PO DAILY 01/10/18 [History] Folic Acid 1 mg PO DAILY 01/10/18 [History] Omeprazole [PriLOSEC] 40 mg PO DAILY 01/10/18 [History] Metoprolol [Lopressor] 25 mg PO BID #60 tablet 01/17/18 [Rx] hydrALAZINE [HydrALAZINE] 25 mg PO TID #90 tablet 01/17/18 [Rx] 3 Allergy/AdvReac Type Severity Reaction Status Date / Time ceftriaxone [From Rocephin] Allergy Hives Verified 01/09/18 21:52 levofloxacin [From Levaquin] Allergy Hives Verified 01/09/18 21:52 All Systems Review: The remainder of the systems were reviewed and are negative Physical Examination Vital Signs, Last 4 Hours Temp Pulse Resp BP Pulse Ox 01/19/18 10:32 16 94 01/19/18 08:02 98.3 F 107 16 113/69 92 Vital Signs Temp Pulse Resp BP Pulse Ox 01/19/18 10:32 16 94 01/19/18 08:02 98.3 F 107 16 113/69 92 01/19/18 04:10 16 92 01/19/18 03:20 98.4 F 101 16 123/70 92 01/18/18 23:40 104 17 86/58 98 01/18/18 23:29 16 96 01/18/18 19:51 97.9 F 97 16 122/65 96 Intake and Output 01/18/18 01/19/18 01/19/18 23:59 07:59 15:59 Intake Total 120 / 120 Balance 120 / 120 Intake: Oral 120 / 120 Other: Meal Breakfast Percent of Meal Consumed 50% Stool Size Moderate Moderate Stool Consistency liquid loose soft Stool Characteristics Normal for Patient Normal for Patient Stool Color Brown Brown # Bowel Movements 1 1 Weight 54.3 kg General: Conversant, No Apparent Distress HEENT: Atraumatic, Normocephaly, Mucus Membranes Moist Neck: No JVD, Normal carotid pulses Cardiac: Reg Rate and Rhythm, Normal S1 and S2, No Murmur Lungs: Other (wheezes, rhonchi) Neuro: Alert and responsive, No focal deficits noted Abdomen: Soft, Non-Tender Skin: No rashes noted on visualized skin Musculoskeletal: No Chest Wall Tenderness Extremities: No Clubbing, No Cyanosis, No Edema, Normal Pulses Results 01/19/18 03:33 01/19/18 03:33 Lab Results 01/19/18 01/19/18 01/19/18 01:18 03:33 03:33 WBC 4.9 Hgb 10.1 L Hct 32.4 L Plt Count 44 L INR APTT Sodium 143 Potassium 4.1 Chloride 101 Carbon Dioxide 27 BUN 59 H Creatinine 4.64 H Glucose 103 Calcium 9.0 Troponin I 7.09 H* 01/19/18 03:33 WBC Hgb Hct Plt Count INR 1.2 APTT 21.7 L Sodium Potassium Chloride Carbon Dioxide BUN Creatinine Glucose Calcium Troponin I Short CBC 01/19/18 Range/Units 03:33 WBC 4.9 (4.3-11.1) K/mcL Hgb 10.1 L (11.5-15.4) g/dL Hct 32.4 L (35.3-44.9) % Plt Count 44 L (140-400) K/mcL Neutrophils # 4.4 (1.6-8.9) K/mcL BMP 01/19/18 Range/Units 03:33 Sodium 143 (136-145) mEq/L Potassium 4.1 (3.5-5.1) mEq/L Chloride 101 (98-107) mEq/L Carbon Dioxide 27 (23-29) mEq/L BUN 59 H (8-23) mg/dL Creatinine 4.64 H (0.60-1.20) mg/dL Glucose 103 (70-105) mg/dL Calcium 9.0 (8.6-10.3) mg/dL Cardiac Enzymes 01/19/18 Range/Units 01:18 Troponin I 7.09 H* (< 0.04) ng/mL Active Medications Acetaminophen (Tylenol) 650 mg PO Q6HR PRN PRN Reason: Mild Pain/Fever Stop: 07/20/18 22:29 Albuterol/Ipratropium (Duoneb) 3 ml IH QIDR [facility] Stop: 07/20/18 23:01 Last Admin: 01/19/18 10:32 Dose: 3 ml Amlodipine Besylate (Norvasc) 5 mg PO DAILY [facility] PRN Reason: Protocol Stop: 07/21/18 09:01 Last Admin: 01/19/18 08:28 Dose: 5 mg Aspirin (Aspirin) 81 mg PO DAILY [facility] Stop: 07/21/18 09:01 Last Admin: 01/19/18 08:28 Dose: 81 mg Atorvastatin Calcium (Lipitor) 40 mg PO HS [facility] Stop: 07/21/18 21:01 Budesonide/Formoterol Fumarate (Symbicort) 2 puff IH BIDR [facility] PRN Reason: Protocol Stop: 07/21/18 10:01 Last Admin: 01/19/18 10:32 Dose: 2 puff Citalopram Hydrobromide (Celexa) 20 mg PO DAILY [facility] Stop: 07/21/18 09:01 Last Admin: 01/19/18 08:28 Dose: 20 mg Docusate Sodium (Colace) 100 mg PO BID PRN; Protocol PRN Reason: Constipation Stop: 07/20/18 22:44 Folic Acid (Folic Acid) 1 mg PO DAILY [facility] Stop: 07/21/18 09:01 Last Admin: 01/19/18 08:28 Dose: 1 mg Heparin Sodium (Porcine) (Heparin) 3,800 unit 70 unit/kg (3800 unit) IVP Q6HR PRN PRN Reason: SEE COMMENTS Stop: 07/21/18 02:40 Heparin Sodium (Porcine) (Heparin) 1,900 unit 35 unit/kg (1900 unit) IVP Q6H PRN PRN Reason: SEE COMMENTS Stop: 07/21/18 02:40 Hydralazine HCl (Hydralazine) 25 mg PO TID [facility] Stop: 07/21/18 09:01 Last Admin: 01/19/18 08:28 Dose: 25 mg Heparin Sodium/Dextrose (Heparin 25,000 Unit/500 Ml D5w) 25,000 unit in 500 mls @ 15.204 mls/hr IVC .Q24H [facility]; 14 UNIT/KG/HR PRN Reason: Protocol Stop: 07/21/18 02:46 Last Admin: 01/19/18 03:26 Dose: 14 unit/kg/hr, 15.204 mls/hr Sodium Chloride (0.9 % Sodium Chloride) 250 mls @ 937.5 mls/hr IVC .Q16M PRN PRN Reason: Hypotension Stop: 07/21/18 10:28 Sodium Chloride (0.9 % Sodium Chloride) 1,000 mls @ 0 mls/hr PRIME .Q0M [facility] PRN Reason: As Directed Stop: 07/21/18 10:31 Levothyroxine Sodium (Synthroid) 200 mcg PO DAILY@0630 [facility] Stop: 07/21/18 06:31 Last Admin: 01/19/18 05:05 Dose: 200 mcg Metoprolol Tartrate (Lopressor) 25 mg PO BID [facility] Stop: 07/21/18 09:01 Last Admin: 01/19/18 08:28 Dose: 25 mg Naloxone HCl (Narcan) 0.4 mg IVP Q2MIN PRN PRN Reason: SEE COMMENTS Stop: 07/20/18 22:20 Nitroglycerin (Nitroglycerin) 0.4 mg SL Q5MIN PRN PRN Reason: Chest Pain Stop: 07/21/18 00:39 Omeprazole (Prilosec) 40 mg PO BIDAC [facility] PRN Reason: Protocol Stop: 07/21/18 07:31 Last Admin: 01/19/18 08:28 Dose: 40 mg Oxycodone HCl (Roxicodone) 10 mg PO Q6HR [facility] PRN Reason: Protocol Stop: 07/21/18 00:01 Last Admin: 01/19/18 05:06 Dose: 10 mg Prednisone (Prednisone) 60 mg PO DAILY [facility] Stop: 07/21/18 09:01 Last Admin: 01/19/18 08:28 Dose: 60 mg Sevelamer HCl (Renvela) 1,600 mg PO TIDWM [facility] Stop: 07/21/18 08:01 Last Admin: 01/19/18 11:11 Dose: Not Given Vitamin B Complex/Vit C/Folic Acid (Renal Caps Softgel) 1 mg PO DAILY [facility] Stop: 07/21/18 09:01 Last Admin: 01/19/18 08:28 Dose: 1 mg - Imaging and Cardiology Echo: report reviewed - EKG Interpretation EKG results cardiology: personally reviewed (Sinus tach rate 100, LVH), other ( 12 hr tele AVG HR 98 SR) Consult Discharge Plan - Plan Referrals: Yonatan Aleman DO [Primary Care Provider] - 01/29/18 1:00 pm <Bernardino Espinoza - Last Filed: 01/19/18 12:56> Date of Encounter: 01/19/18 - Attending Attestation I have personally performed a face to face evaluation on this patient. I have reviewed and agree with the care plan. History and Exam by me shows: 67 YOF with multiple comorbidities, CRFs , Afib, CAD s/p CABG presents with a NSTEMI, s/p arrest and claimed VT/Vfib. Patient denies any chest pain and is resting comfortably. Recent diagnosis of Lung CA with mets to Liver and severe thrombocytopenia make pt a poor candidate for assisted dual antiplatelet therapy for possible PCI and also in regards to her PAF and stroke risk reduction. Patient aware and accepts medical management for CAD/NSTEMI and ASA for PAF and stroke risk reduction. Assessment and Plan Discussion w patient/family: The assessment and plan as outlined above was discussed with the patient and/or family members who expressed understanding and agreement. All questions were answered. Thank you for involving us in the care of your patient. Please call with any questions. History of Present Illness History of present illness: Ms. Orellana is a 67 year old female All Systems Review: The remainder of the systems were reviewed and are negative Physical Examination Vital Signs, Last 4 Hours Resp Pulse Ox 01/19/18 10:32 16 94 Results 01/19/18 03:33 01/19/18 03:33 Lab Results 01/19/18 01/19/18 01/19/18 01:18 03:33 03:33 WBC 4.9 Hgb 10.1 L Hct 32.4 L Plt Count 44 L INR APTT Sodium 143 Potassium 4.1 Chloride 101 Carbon Dioxide 27 BUN 59 H Creatinine 4.64 H Glucose 103 Calcium 9.0 Troponin I 7.09 H* 01/19/18 01/19/18 03:33 10:20 WBC Hgb Hct Plt Count INR 1.2 APTT 21.7 L 58.0 H D Sodium Potassium Chloride Carbon Dioxide BUN Creatinine Glucose Calcium Troponin I
--- NOTE | 2018-01-19 12:38 | Nephrology Consult Note ---
Date of Encounter: 01/19/18 Time of Encounter: 11:00 Assessment and Plan (1) End stage renal disease Current Visit: No Status: Chronic S/P Vfib/cardioversion. ESRD- Will do HD today, keeping MWF schedule. Orders given. History of Present Illness - Reason for Consult end stage renal disease - History of Present Illness Ms. Orellana is a 67 year old female with ESRD who dialyzes at [place] on MWF. She is non compliant with HD, frequently missing. Other PMH- arthritis, cancer, CHF, COPD, coronary artery disease, dialysis, hyperlipidemia, hypertension, renal disease, thyroid disease, anxiety, depression, coronary bypass (CABG), other (Left arm dialysis shunt), kidney stents, AVF left arm. Presented to [facility] via EMS following witnessed syncopal episode by Home Health nurse who initiated CPR, with apparent Vfib and cardioversion per EMS. [facility]. She was recently discharged from hospital with CT findings concerning for wide spread metastatic disease, potential lung primary. At time of consult she is alert, denies any discomfort. Past Med Surg Social Fam HX - Past Medical History Medical history: arthritis, cancer, CHF, COPD, coronary artery disease, dialysis , hyperlipidemia, hypertension, renal disease, thyroid disease Additional medical history: Dialysis M-W-F Psychiatric history: anxiety, depression - Past Surgical History Surgical History: coronary bypass (CABG), other (Left arm dialysis shunt) Additional surgical history: kidney stents. DIALYSIS SHUNT left arm - Social History Smoking Status: Current every day smoker Smokeless Tobacco Status: No Alcohol use: none Drug use: none - Family History Brother Family Member Ethnicity: Unknown Hx Family Cardiac Disorders: Yes (one brother passed sudden heart attack) Mother Living Status: Hx Family Cancer: Yes (lung cancer) Father Living Status: Hx Family Cancer: Yes (lung cancer) Medications and Allergies Atorvastatin [Lipitor] 40 mg PO HS 06/02/15 [History] Levothyroxine [Synthroid] 200 mcg PO QAM 06/02/15 [History] OxyCODONE Immed Rel [Roxicodone 10 MG] 10 mg PO Q6H PRN 06/02/15 [History] Docusate [Colace] 100 mg PO BID PRN 09/22/15 [History] B Complex with Vitamin C [[place]-Bee with C] 1 tab PO DAILY 02/22/16 [History] Sevelamer [Renvela] 1,600 mg PO TIDWM 08/29/16 [History] Fluticasone/Salmeterol [Advair Hfa 115-21 Mcg Inhaler] 2 puff IH BID 11/14/16 [ History] Ipratropium/Albuterol Neb [Duoneb] 3 ml IH QID PRN 11/14/16 [History] Renal Vitamin [Renal Caps Softgel] 1 mg PO DAILY 11/14/16 [History] Umeclidinium [place] [Incruse Ellipta] 62.5 mcg IH DAILY 11/12/17 [History] Albuterol Sulfate [Proair Hfa] 2 puff IH Q4-6H PRN 01/10/18 [History] Citalopram Hydrobromide [Celexa] 20 mg PO DAILY 01/10/18 [History] Folic Acid 1 mg PO DAILY 01/10/18 [History] Omeprazole [PriLOSEC] 40 mg PO DAILY 01/10/18 [History] Metoprolol [Lopressor] 25 mg PO BID #60 tablet 01/17/18 [Rx] hydrALAZINE [HydrALAZINE] 25 mg PO TID #90 tablet 01/17/18 [Rx] 3 Allergy/AdvReac Type Severity Reaction Status Date / Time ceftriaxone [From Rocephin] Allergy Hives Verified 01/09/18 21:52 levofloxacin [From Levaquin] Allergy Hives Verified 01/09/18 21:52 Exam - Vital Signs Vital signs: Initial Vital Signs Temp Pulse Resp BP Pulse Ox 97.9 F 97 16 122/65 96 01/18/18 19:51 01/18/18 19:51 01/18/18 19:51 01/18/18 19:51 01/18/18 19:51 Vital Signs - Last 8 Hours Temp Pulse Resp BP Pulse Ox 01/19/18 10:32 16 94 01/19/18 08:02 98.3 F 107 16 113/69 92 Intake and Output 01/18/18 01/19/18 01/19/18 23:59 07:59 15:59 Intake Total 120 / 120 Balance 120 / 120 Intake: Oral 120 / 120 Other: Meal Breakfast Percent of Meal Consumed 50% Stool Size Moderate Moderate Stool Consistency liquid loose soft Stool Characteristics Normal for Patient Normal for Patient Stool Color Brown Brown # Bowel Movements 1 1 Weight 54.3 kg - General Appearance General appearance: well-developed, well-nourished, appears started age EENT: mucous membranes moist Neck: no JVD Respiratory: clear Cardiology: no edema, regular rate, regular rhythm - Dialysis Access Dialysis Vascular Access: Arteriovenous Fistula thrill: Yes bruit: Yes Gastrointestinal: normoactive bowel sounds, no tenderness Integumentary: warm and dry Neurologic: alert and oriented x3 Results - Lab Results 01/19/18 03:33 01/19/18 03:33 Most recent lab results Calcium 9.0 mg/dL (8.6-10.3) 01/19/18 03:33 Consult Discharge Plan - Plan Referrals: Yonatan Aleman DO [Primary Care Provider] - 01/29/18 1:00 pm
--- NOTE | 2018-01-19 16:20 | Internal Med Progress Note ---
Date of Encounter: 01/19/18 Time of Encounter: 10:45 - Assessment and plan (1) Syncope and collapse Current Visit: Yes Status: Acute Assessment and plan: Etiology remains unclear although patient does have troponin elevation with concern for non-ST elevation [place]. Patient did receive chest compressions and defibrillation prior to arrival to the ER. Cardiology has been consulted and patient placed on IV heparin. We will continue IV heparin for 24-48 hours per cardiology recommendations. Monitor blood counts closely. I will obtain MRI of the brain to rule out other causes of syncope given her multiple metastatic lesions. (2) NSTEMI (non-ST elevated myocardial infarction) Current Visit: Yes Status: Acute Assessment and plan: Troponin was up to 7 overnight. Patient denies any chest pain. Cardiology has been consulted. Patient placed on IV heparin drip. She is a poor candidate to undergo left heart catheterization. We will continue IV heparin drip and monitoring blood counts closely. We will stop anticoagulation if patient develops any bleeding. (3) CAD (coronary artery disease) Current Visit: No Status: Chronic Assessment and plan: Continue medical management with aspirin, statin and beta esther Qualifiers: Coronary Disease-Associated Artery/Lesion type: unspecified vessel or lesion type [place] vs. transplanted heart: unspecified whether circle or transplanted heart Associated angina: angina presence unspecified Qualified Code(s): I25.10 - Atherosclerotic heart disease of circle coronary artery without angina pectoris (4) ESRD (end stage renal disease) on dialysis Current Visit: Yes Status: Chronic Assessment and plan: Nephrology has been consulted for dialysis needs (5) Hypertension Current Visit: No Status: Chronic Assessment and plan: Blood pressure remains well controlled Qualifiers: Hypertension type: essential hypertension Qualified Code(s): I10 - Essential (primary) hypertension (6) Metastases to the liver Current Visit: Yes Status: Chronic Assessment and plan: Uncertain primary. Biopsy results are still pending. If they become available during her stay here, we will consult oncology for further recommendations. (7) Thrombocytopenia Current Visit: Yes Status: Chronic Assessment and plan: Platelets are 44 today. Patient is receiving IV heparin. At high risk for bleeding. We will monitor closely. If she develops any bleeding, we will stop IV heparin and reverse anticoagulation. - Time Spent With Patient Total time spent is greater than 50% in coordination of care (as documented) at patient's floor/unit and/or counseling patient: - Subjective Interval history: Patient is awake and alert at this time. She does not remember the events of yesterday as to how she ended up in the ER. She does not recollect passing out. Currently she does not have any chest pain. No palpitations or shortness of breath. - Constitutional Vitals: Temp Pulse Resp BP Pulse Ox 98.3 F 107 16 113/69 94 01/19/18 08:02 01/19/18 08:02 01/19/18 10:32 01/19/18 08:02 01/19/18 10:32 General appearance: Present: cooperative, A&O X 3, pleasant, no acute distress, underweight, answers questions appropriately - Respiratory Respiratory exam: Present: CTAB. Absent: accessory muscle use, rales, rhonchi, wheezes - Cardiovascular Cardiovascular exam: Present: RRR, +S1, +S2. Absent: diastolic murmur, gallop, rubs, systolic murmur - GI/Abdominal GI/Abdominal exam: Present: normal bowel sounds, soft, no peritoneal signs. Absent: distended, tenderness - Extremities Exam Extremities exam: Present: warm, radial pulses palpable and symmetrical. Absent : calf tenderness, cyanotic, pedal edema - Neurological Exam Neurological exam: Present: alert, oriented X3, no focal deficits. Absent: facial droop, speech deficit - Skin Skin exam: Present: dry, intact, pallor Internal Medicine: Result - Labs CBC & Chem 7: 01/19/18 03:33 01/19/18 03:33 Labs: Short CBC 01/19/18 Range/Units 03:33 WBC 4.9 (4.3-11.1) K/mcL Hgb 10.1 L (11.5-15.4) g/dL Hct 32.4 L (35.3-44.9) % Plt Count 44 L (140-400) K/mcL Neutrophils # 4.4 (1.6-8.9) K/mcL BMP 01/19/18 03:33 Sodium 143 Potassium 4.1 Chloride 101 Carbon Dioxide 27 BUN 59 H Creatinine 4.64 H Glucose 103 Calcium 9.0 Cardiac Enzymes 01/19/18 Range/Units 01:18 Troponin I 7.09 H* (< 0.04) ng/mL - ABG Interpretation ABG results: PT/INR, D-dimer PT 13.1 Seconds (9.4-12.1) H 01/19/18 03:33 - VTE Documentation of Mechanical Device: Intermittent pneumatic compression device Consult Discharge Plan - Plan Referrals: Yonatan Aleman DO [Primary Care Provider] - 01/29/18 1:00 pm
[2018-01-19 19:38] LABS: Hematocrit 31.3 % (35.3-44.9); Hemoglobin 9.8 g/dL (11.5-15.4)
[2018-01-19] MEDS: *HR* OxyCODONE Immed Rel 5 MG TABLET PO PRN (22:09)
[2018-01-20 01:51] LABS: Hematocrit 30.6 % (35.3-44.9); Hemoglobin 9.7 g/dL (11.5-15.4)
[2018-01-20 03:51] LABS: Basophils % 0.3 %; Lymphocytes % 4.8 %; Mean Corpuscular Hemoglobin 32.1 pg (28.0-33.3); Mean Corpuscular Volume 103.4 fL (83.0-100.0); Mean Platelet Volume 10.9 fL (9.4-12.4); Nucleated Red Blood Cells 0.5 /100 WBC (0); Red Cell Distribution Width 15.9 % (11.5-14.5)
[2018-01-20 03:53] LABS: Eosinophils % 0.3 %; Hematocrit 30.6 % (35.3-44.9); Hemoglobin 9.5 g/dL (11.5-15.4); Immature Granulocytes % 1.3 % (0-4); Immature Platelets 4.9 % (1.1-6.1); Lymphocytes # 0.2 K/mcL (0.6-4.6); Monocytes # 0.2 K/mcL (0.0-1.3); Monocytes % 4.1 %; Red Blood Count 2.96 M/mcL (3.82-4.97); Segmented Neutrophils % 89.2 %
[2018-01-20 04:13] LABS: Calcium 8.9 mg/dL (8.6-10.3); Potassium 4.3 mEq/L (3.5-5.1)
[2018-01-20] MEDS: *HR* OxyCODONE Immed Rel 5 MG TABLET PO PRN ×3 (04:18→22:44)
[2018-01-20 04:31] LABS: Neutrophils # 3.6 K/mcL (1.6-8.9); Platelet Count 35 K/mcL (140-400)
[2018-01-20 04:34] LABS: Platelet Estimate Decreased (Normal)
[2018-01-20] MEDS: Heparin 25,000 UNIT/500 ML D5W 25,000 UNIT/500 ML BAG IVC SCH (05:20)
[2018-01-20] MEDS: Ipratropium/Albuterol Neb 3 ML IH SCH ×4 (05:27→23:13)
[2018-01-20] MEDS ORDERED: 0.9 % Sodium Chloride 1,000 ML IVC ONE (08:00)
[2018-01-20] MEDS ORDERED: *HR* Adenosine 6 MG/2 ML VIAL IVP ONE ×4 (08:03→08:15)
[2018-01-20] MEDS ORDERED: *HR* Metoprolol 5 MG/5 ML VIAL IVP ONE ×2 (08:11)
[2018-01-20] MEDS ORDERED: Amiodarone Premix 360 MG/200 ML BAG IVC ONE (08:21)
[2018-01-20] MEDS ORDERED: Amiodarone Premix 150 MG/100 ML BAG IVPB ONE (08:21)
[2018-01-20] MEDS ORDERED: *HR* Amiodarone 150 MG/3 ML VIAL IVPB ONE (08:46)
[2018-01-20] MEDS ORDERED: *HR* Amiodarone Premix 360 MG/200 ML BAG IVC ONE (08:46)
[2018-01-20 09:02] LABS: Hematocrit 29.1 % (35.3-44.9); Hemoglobin 9.1 g/dL (11.5-15.4); Mean Corpuscular HGB Conc 31.3 g/dL (31.6-35.5); Mean Corpuscular Hemoglobin 31.9 pg (28.0-33.3); Mean Corpuscular Volume 102.1 fL (83.0-100.0); Mean Platelet Volume 11.3 fL (9.4-12.4); Nucleated Red Blood Cells 0.5 /100 WBC (0); Red Blood Count 2.85 M/mcL (3.82-4.97); Red Cell Distribution Width 16.1 % (11.5-14.5)
[2018-01-20] MEDS ORDERED: Phenylephrine 10 MG in D5% in Water 250 ML IVC SCH (09:15)
[2018-01-20 09:23] LABS: Platelet Count 38 K/mcL (140-400)
[2018-01-20 09:27] LABS: Anisocytosis 1+ (Not Present); Platelet Estimate Decreased (Normal)
[2018-01-20 09:30] LABS: Lymphocytes # 0.2 K/mcL (0.6-4.6); Monocytes # 0.1 K/mcL (0.0-1.3)
--- NOTE | 2018-01-20 10:01 | Pulmonology Consult Note ---
<Eamon Kumar W - Last Filed: 01/20/18 11:30> Date of Encounter: 01/20/18 Medications and Allergies Atorvastatin [Lipitor] 40 mg PO HS 06/02/15 [History] Levothyroxine [Synthroid] 200 mcg PO QAM 06/02/15 [History] OxyCODONE Immed Rel [Roxicodone 10 MG] 10 mg PO Q6H PRN 06/02/15 [History] Docusate [Colace] 100 mg PO BID PRN 09/22/15 [History] B Complex with Vitamin C [Mary Ann-Bee with C] 1 tab PO DAILY 02/22/16 [History] Sevelamer [Renvela] 1,600 mg PO TIDWM 08/29/16 [History] Fluticasone/Salmeterol [Advair Hfa 115-21 Mcg Inhaler] 2 puff IH BID 11/14/16 [ History] Ipratropium/Albuterol Neb [Duoneb] 3 ml IH QID PRN 11/14/16 [History] Renal Vitamin [Renal Caps Softgel] 1 mg PO DAILY 11/14/16 [History] Umeclidinium [place] [Incruse Ellipta] 62.5 mcg IH DAILY 11/12/17 [History] Albuterol Sulfate [Proair Hfa] 2 puff IH Q4-6H PRN 01/10/18 [History] Citalopram Hydrobromide [Celexa] 20 mg PO DAILY 01/10/18 [History] Folic Acid 1 mg PO DAILY 01/10/18 [History] Omeprazole [PriLOSEC] 40 mg PO DAILY 01/10/18 [History] Metoprolol [Lopressor] 25 mg PO BID #60 tablet 01/17/18 [Rx] hydrALAZINE [HydrALAZINE] 25 mg PO TID #90 tablet 01/17/18 [Rx] 3 Allergy/AdvReac Type Severity Reaction Status Date / Time ceftriaxone [From Rocephin] Allergy Hives Verified 01/09/18 21:52 levofloxacin [From Levaquin] Allergy Hives Verified 01/09/18 21:52 All Systems: The remainder of the systems were reviewed and are negative Physical Examination Vital Signs: Vital Signs, Last 4 Hours Temp Pulse Resp BP Pulse Ox 01/20/18 10:00 79 18 112/60 95 01/20/18 09:36 95 01/20/18 09:28 82 01/20/18 09:00 97.8 F 87 20 115/59 94 01/20/18 07:38 98.6 F 96 18 93/43 92 Results - Laboratory Findings CBC and BMP: 01/20/18 08:44 01/20/18 03:24 PT/INR, D-dimer PT 13.1 Seconds (9.4-12.1) H 01/19/18 03:33 Abnormal lab findings: Abnormal lab results RBC 2.85 M/mcL (3.82-4.97) L 01/20/18 08:44 Hgb 9.1 g/dL (11.5-15.4) L 01/20/18 08:44 Hct 29.1 % (35.3-44.9) L 01/20/18 08:44 MCV 102.1 fL (83.0-100.0) H 01/20/18 08:44 MCHC 31.3 g/dL (31.6-35.5) L 01/20/18 08:44 RDW 16.1 % (11.5-14.5) H 01/20/18 08:44 Plt Count 38 K/mcL (140-400) L 01/20/18 08:44 Band Neutrophils % 14.0 % (0-4) H 01/20/18 08:44 Metamyelocytes % 2.0 % (0) H 01/20/18 08:44 Lymphocytes # 0.2 K/mcL (0.6-4.6) L 01/20/18 08:44 Nucleated RBCs/100 WBC 0.5 /100 WBC (0) H 01/20/18 08:44 Platelet Estimate Decreased (Normal) L 01/20/18 08:44 Immature Plt Fraction 7.0 % (1.1-6.1) H 01/20/18 08:44 Anisocytosis 1+ (Not Present) A 01/20/18 08:44 PT 13.1 Seconds (9.4-12.1) H 01/19/18 03:33 BUN 30 mg/dL (8-23) H 01/20/18 03:24 Creatinine 2.74 mg/dL (0.60-1.20) H 01/20/18 03:24 Est GFR ( Amer) 21 (> 60) L 01/20/18 03:24 Est GFR (Non-Af Amer) 17 (> 60) L 01/20/18 03:24 Glucose 106 mg/dL (70-105) H 01/20/18 03:24 Troponin I 3.72 ng/mL (< 0.04) H* 01/20/18 01:30 - Clinical Findings Intake & Output: Intake & Output 01/19/18 01/20/18 01/20/18 23:59 07:59 15:59 Intake Total 564 / 564 632 / 632 Output Total 1600 / 1600 0 / 0 Balance -1036 / -1036 632 / 632 Weight 55.5 kg Consult Discharge Plan - Plan Referrals: Yonatan Aleman DO [Primary Care Provider] - 01/29/18 1:00 pm - Attending Attestation I examined this patient and my medical decision-making was reviewed with the Resident Physician. I agree with the documented findings, disposition and treatment plan as described except to the extent set forth below. We independently had [id number] contact with the patient Patient seen and examined at bedside Labs, radiology, chart personally reviewed. Management was reviewed during multidisciplinary critical care rounds. ANIMAL CARE PROVIDER: No acute neurological deficits she presented with syncope likely cardiac in etiology she is a high risk for brain metastasis will start with head CT to rule out any new metastatic disease but will likely need MRI for further evaluation Pulm: Chronic respiratory failure secondary to COPD currently stable on nasal cannula Cards: Non-STEMI being managed by cardiology conservative management indicated further recommendations based upon bleeding risk she is in A. fib with RVR with hypotension earlier today prompting ICU transfer she has been loaded and continued on amiodarone and now is in sinus rhythm FEN-GI: Nothing by mouth for now Renal: ESRD nephrology following continue to monitor electrolytes ID: No acute infectious process suspected Heme/Onc: Chronic anemia and thrombocytopenia continue to trend both no evidence of active hemorrhage at this time; she has evidence of metastatic lung cancer but is likely not a candidate for treatment given alterable medical comorbidities Endo: Glucose Monitored Integ/MSK: Skin Care per routine ICU Nursing Protocol to prevent ulcers. Lines: All lines examined without evidence of infection : Dispo: Monitor in ICU overnight I suspect she will be a little back to med telemetry tomorrow CODE: Currently full code I had a candid discussion with her and her daughter at bedside that the patient presents with multiple medical illnesses at there are terminal stage. She is a candidate for hospice but is refusing to consider this option at this time. She wants to remain full code. Although out side of the hospitalization she returns home she is noted to have significant medical noncompliance. I did express my medical judgment that endotracheal intubation and CPR and her specific situation is unlikely to provide any therapeutic benefit. Daughter and patient will continue to consider this but at this time 1 to remain full code. <Jose Pace - Last Filed: 01/20/18 12:40> Date of Encounter: 01/20/18 Time of Encounter: 10:40 Assessment and Plan (1) Acute and chronic respiratory failure Current Visit: No Status: Acute Currently at 95% O2 at 6 L nasal cannula. Patient is okay for intubation although not ideal candidate. We will hold off for intubation for now since patient's respiratory status is stable. Qualifiers: Respiratory failure complication: unspecified whether with hypoxia or hypercapnia Qualified Code(s): J96.20 - Acute and chronic respiratory failure , unspecified whether with hypoxia or hypercapnia (2) Hypotension Current Visit: Yes Status: Resolved Blood pressure dropped to 90 systolic. Antihypertensive medications put on hold. Blood pressure currently stable at 112/60. - Continue to hold blood pressure medications for now. - Phenylephrine drip on hold for now. Qualifiers: Qualified Code(s): I95.9 - Hypotension, unspecified (3) Syncope and collapse Current Visit: Yes Status: Acute Most likely secondary to an NSTEMI. - CT of head without contrast to rule out brain metastases or hemorrhage. - Patient can follow with MRI of the brain once she is stable. (4) NSTEMI (non-ST elevated myocardial infarction) Current Visit: Yes Status: Acute Troponins have been downtrending since admission with original troponin level at 7.9 followed by 4.4 and currently at 3.72. Cardiology was consult to them given patient's current status of primary lung carcinoma with liver metastasis, bone metastasis, and mediastinal lymphadenopathy along with thrombocytopenia, cardiology only recommends medical management right now is that of acute intervention. Patient was placed on heparin drip recommended for 24-48 hours. Currently finishing second day. - Continue heparin drip. - Continue aspirin, statin, beta esther (on hold for now). (5) CAD (coronary artery disease) Current Visit: Yes Status: Chronic Continue aspirin, statin, and beta esther (on hold for now). Qualifiers: Coronary Disease-Associated Artery/Lesion type: bypass graft [place] vs. transplanted heart: [place] heart Associated angina: without angina Qualified Code(s): I25.810 - Atherosclerosis of coronary artery bypass graft(s) without angina pectoris (6) ESRD (end stage renal disease) on dialysis Current Visit: Yes Status: Chronic Patient on scheduled hemodialysis. Renal function has been improving with a creatinine of 4.64 and admission to currently at 2.74. BUN decrease from 59 to 30. (7) PAF (paroxysmal atrial fibrillation) Current Visit: Yes Status: Acute PAF documented on last admission. EKGs from last admission do demonsrate A-Fib/ Flutter. Currently on amiodarone drip and rate controlled. Per cardiology she is not a candidate for long-term anticoagulation. - Continue aspirin. - Continue amiodarone drip. - Continue heparin drip. (8) Thrombocytopenia Current Visit: Yes Status: Chronic Platelets 44 on admission currently at 38. Patient with history around baseline. (9) Metastases to the liver Current Visit: Yes Status: Chronic Uncertain primary. Biopsy results are still pending. If they become available during her stay here, we will consult oncology for further recommendations. (10) DVT prophylaxis Current Visit: No Status: Acute EPC's. History of Present Illness Consult date: 01/20/18 Requesting physician: Socrates Martinez Reason for consult: other (Hypotension, Paroxysmal atrial fibrillation) Chief complaint: Syncope History of present illness: Patient is a 67-year-old female with a past medical history of HTN, HLD, former smoker, lung cancer with liver mets, COPD with chronic respiratory failure on 4 L NC of oxygen, ESRD-HD M/W/F, medical non-compliance to dialysis, CHF, CAD s/p CABG, ruptured aneurysm of thoracoabdominal aorta, bilateral carotid artery stenosis, gastric ulcer/GI bleed, Hx of severe bilateral mastoiditis (seen on MRI brain 01/02/2016) that presented to the ED on 01/18/18 for syncopal event. Patient was at care home when she had a syncopal event. EMS arrived and found the patient to be pulseless and initiated chest compressions. Afterwards patient went into [facility] and was cardioverted and brought to [place] ER. According to daughter patient had missed her hemodialysis the week prior. She was recently informed that she had a lung mass with metastasis to the liver. Patient had refused to go meet with oncology. Patient had also missed her vascular appointment on 01/10/12 for her history of a nominal aneurysm. On presentation patient had an elevated troponin of 7.09. Cardiology was consult to 4 and an STEMI. Given her current situation of lung cancer with metastases to liver, bone metastasis, and thrombocytopenia that medical management was recommended rather than any acute intervention. Patient was placed on heparin drip and started on aspirin and statin and beta blockers. Nephrology was consulted for her ESRD and patient was placed on hemodialysis. Patient was eventually brought to the ER today due to hypotensive illness and paroxysmal atrial fibrillation. When seen today patient denies any chest pain but admits to shortness of breath. She admits to minor abdominal pain when she moves in the left upper quadrant. She denies any fever or chills. Denies any headaches, dizziness, or lightheadedness. Denies any nausea or vomiting. Past Med Surg Social Fam HX - Past Medical History Medical history: arthritis, cancer, CHF, COPD, coronary artery disease, dialysis , hyperlipidemia, hypertension, renal disease, thyroid disease Additional medical history: Dialysis M-W-F Psychiatric history: anxiety, depression - Past Surgical History Surgical History: coronary bypass (CABG), other (Left arm dialysis shunt) Additional surgical history: kidney stents. DIALYSIS SHUNT left arm - Social History Smoking Status: Current every day smoker Smokeless Tobacco Status: No Alcohol use: none Drug use: none - Family History Brother Family Member Ethnicity: Unknown Hx Family Cardiac Disorders: Yes (one brother passed sudden heart attack) Mother Living Status: Hx Family Cancer: Yes (lung cancer) Father Living Status: Hx Family Cancer: Yes (lung cancer) All Systems: The remainder of the systems were reviewed and are negative - Constitutional Constitutional: other (Alert and oriented 3), no chills, no fever(s), no headache(s) - EENT Nose, mouth and throat: no dizziness, no headache(s) - Cardiovascular Cardiovascular: dyspnea, syncope, no chest pain, no palpitations - Respiratory Respiratory: no cough - Gastrointestinal Gastrointestinal: abdominal pain, no nausea, no vomiting Physical Examination Vital Signs: Vital Signs, Last 4 Hours Temp Pulse Resp BP Pulse Ox 01/20/18 09:36 95 01/20/18 09:28 82 01/20/18 09:00 97.8 F 87 20 115/59 94 01/20/18 07:38 98.6 F 96 18 93/43 92 General appearance: no acute distress Eyes: nonicteric ENT: oropharynx moist Neck: supple Effort: normal Inspection: normal Auscultation: bilateral: rhonchi Cardiovascular: regular rate and rhythm Gastrointestinal: normoactive bowel sounds, soft, non-tender, non-distended Integumentary: normal Extremities: no cyanosis, no edema, no clubbing, pink and warm, pulses normal, no ischemia or petechiae Musculoskeletal: no deformities normal mental status mood appropriate, affect normal Results - Laboratory Findings CBC and BMP: 01/20/18 11:30 01/20/18 03:24 PT/INR, D-dimer PT 13.1 Seconds (9.4-12.1) H 01/19/18 03:33 Abnormal lab findings: Abnormal lab results RBC 2.85 M/mcL (3.82-4.97) L 01/20/18 08:44 Hgb 9.1 g/dL (11.5-15.4) L 01/20/18 08:44 Hct 29.1 % (35.3-44.9) L 01/20/18 08:44 MCV 102.1 fL (83.0-100.0) H 01/20/18 08:44 MCHC 31.3 g/dL (31.6-35.5) L 01/20/18 08:44 RDW 16.1 % (11.5-14.5) H 01/20/18 08:44 Plt Count 38 K/mcL (140-400) L 01/20/18 08:44 Band Neutrophils % 14.0 % (0-4) H 01/20/18 08:44 Metamyelocytes % 2.0 % (0) H 01/20/18 08:44 Lymphocytes # 0.2 K/mcL (0.6-4.6) L 01/20/18 08:44 Nucleated RBCs/100 WBC 0.5 /100 WBC (0) H 01/20/18 08:44 Platelet Estimate Decreased (Normal) L 01/20/18 08:44 Immature Plt Fraction 7.0 % (1.1-6.1) H 01/20/18 08:44 Anisocytosis 1+ (Not Present) A 01/20/18 08:44 PT 13.1 Seconds (9.4-12.1) H 01/19/18 03:33 APTT 74.0 Seconds (26.0-36.0) H 01/20/18 03:24 BUN 30 mg/dL (8-23) H 01/20/18 03:24 Creatinine 2.74 mg/dL (0.60-1.20) H 01/20/18 03:24 Est GFR ( Amer) 21 (> 60) L 01/20/18 03:24 Est GFR (Non-Af Amer) 17 (> 60) L 01/20/18 03:24 Glucose 106 mg/dL (70-105) H 01/20/18 03:24 Troponin I 3.72 ng/mL (< 0.04) H* 01/20/18 01:30 - Clinical Findings Intake & Output: Intake & Output 01/19/18 01/20/18 01/20/18 23:59 07:59 15:59 Intake Total 564 / 564 632 / 632 Output Total 1600 / 1600 0 / 0 Balance -1036 / -1036 632 / 632 Weight 55.5 kg
--- NOTE | 2018-01-20 10:34 | Nephrology Progress Note ---
Date of Encounter: 01/20/18 Time of Encounter: 10:15 - Assessment and Plan (1) End stage renal disease Current Visit: No Status: Chronic Not compliant with BP meds at home. Hypotension most likely related to scheduled doses, in hospital compliance and medication will need adjusted. No HD today, keeping MWF schedule. Subjective Interval history: S/P SVT event and transferred to ICU. Amiodorone drip. Hypotensive. Nursing staff holdin BP rx at present, no pressors. Alert, denies chest pain. No new complaints. Objective - Vital Signs Vital signs: Vital Signs Temp Pulse Resp BP Pulse Ox 01/20/18 10:00 79 18 112/60 95 01/20/18 09:36 95 01/20/18 09:28 82 01/20/18 09:00 97.8 F 87 20 115/59 94 01/20/18 07:38 98.6 F 96 18 93/43 92 01/20/18 05:27 18 89 01/20/18 03:36 98.4 F 92 17 115/61 92 01/20/18 03:35 91 01/19/18 23:36 86 01/19/18 23:34 16 88 01/19/18 23:11 98.3 F 84 15 103/59 86 01/19/18 21:07 93 89 01/19/18 19:30 97.6 F 92 15 121/70 86 01/19/18 18:35 96.7 F L 18 110/54 01/19/18 18:25 96/53 01/19/18 18:10 100/60 01/19/18 17:55 100/58 01/19/18 17:40 99/55 01/19/18 17:25 95/57 01/19/18 17:10 96/55 01/19/18 16:55 98/58 01/19/18 16:40 93/57 01/19/18 16:25 95/58 01/19/18 16:10 91/51 01/19/18 15:55 96/59 01/19/18 15:40 100/59 01/19/18 15:25 97.6 F 16 102/60 Intake and Output 01/19/18 01/20/18 01/20/18 23:59 07:59 15:59 Intake Total 564 / 564 632 / 632 Output Total 1600 / 1600 0 / 0 Balance -1036 / -1036 632 / 632 Intake: IV Fluids 264 / 264 632 / 632 Heparin 25,000 UNIT/500 ML D5W 264 / 264 632 / 632 25,000 unit In 500 ml @ 14 UNIT /KG/HR 15.204 mls/hr IVC .Q24H MILES Rx#:[id number] Oral 300 / 300 0 / 0 Output: Urine 0 / 0 0 / 0 Total Dialysis (HD) Output 1600 / 1600 Other: Meal Dinner Percent of Meal Consumed 0% Weight 55.5 kg Hemodialysis Net Fluid Removed 1000 (mL) Patient Weight 01/20/18 23:59 Weight 55.5 kg - General Appearance General appearance: Present: well-developed, well-nourished, appears started age EENT: Present: mucous membranes moist Neck: Present: no JVD Respiratory: Present: clear Cardiology: Present: no edema, regular rate, regular rhythm Dialysis Vascular Access: Arteriovenous Fistula Gastrointestinal: Present: hypoactive bowel sounds, no tenderness Integumentary: Present: warm and dry Psychiatric: Present: mood/affect appropriate, cooperative - Lab 01/20/18 08:44 01/20/18 03:24 Most recent lab results Calcium 8.9 mg/dL (8.6-10.3) 01/20/18 03:24 - VTE Documentation of Mechanical Device: Intermittent pneumatic compression device Consult Discharge Plan - Plan Referrals: Yonatan Aleman DO [Primary Care Provider] - 01/29/18 1:00 pm
[2018-01-20] MEDS: Budesonide/Formoterol 80/4.5 MDI IH SCH ×2 (11:18→23:14)
[2018-01-20] MEDS: hydrALAZINE 25 MG TABLET PO SCH ×3 (11:31→20:47)
[2018-01-20] MEDS: Renal Vitamin 1 MG CAPSULE PO SCH (11:32)
[2018-01-20] MEDS: Folic Acid 1 MG TABLET PO SCH (11:32)
[2018-01-20] MEDS: Aspirin 81 MG TAB.CHEW PO SCH (11:32)
[2018-01-20] MEDS: amLODIPine 5 MG TABLET PO SCH (11:32)
[2018-01-20] MEDS: predniSONE 20 MG TABLET PO SCH (11:32)
[2018-01-20 11:58] LABS: Hematocrit 30.5 % (35.3-44.9); Hemoglobin 9.4 g/dL (11.5-15.4)
--- NOTE | 2018-01-20 13:29 | Internal Med Progress Note ---
Date of Encounter: 01/20/18 Time of Encounter: 07:50 - Assessment and plan (1) PAF (paroxysmal atrial fibrillation) Current Visit: Yes Status: Acute Assessment and plan: A. fib with RVR with hypotension. Patient has been placed on IV amiodarone. We will monitor heart rate closely. Has converted to sinus rhythm. Follow cardiology recommendations. Continue amiodarone for now. Patient at high risk for complications and is in a critical condition. Critical care time: 50 minutes (2) Syncope and collapse Current Visit: Yes Status: Acute Assessment and plan: Patient has not had any further episodes of syncope and collapse. Her episodes could be related to recurrent episodes of rapid A. fib. Cardiology consulted. MRI of the brain has been ordered to look for any metastatic lesions in the brain but unable to give contrast as patient has end-stage renal disease. Head CT has also been ordered. (3) NSTEMI (non-ST elevated myocardial infarction) Current Visit: Yes Status: Acute Assessment and plan: Being treated with IV heparin. However platelet count remains low. Patient has received IV heparin for 24 hours. At this time I recommend holding off on further IV heparin due to high risk for complications. Cardiology recommends conservative management for now. Patient is already on aspirin, beta esther and statin. Currently holding beta esther due to hypotension. (4) CAD (coronary artery disease) Current Visit: No Status: Chronic Assessment and plan: Continue aspirin, statin Qualifiers: Coronary Disease-Associated Artery/Lesion type: unspecified vessel or lesion type [place] vs. transplanted heart: unspecified whether [place] or transplanted heart Associated angina: angina presence unspecified Qualified Code(s): I25.10 - Atherosclerotic heart disease of [place] coronary artery without angina pectoris (5) ESRD (end stage renal disease) on dialysis Current Visit: Yes Status: Chronic Assessment and plan: Nephrology following for dialysis needs. Patient was dialyzed yesterday. (6) Hypertension Current Visit: No Status: Chronic Assessment and plan: Holding antihypertensives currently due to hypotension. Qualifiers: Hypertension type: essential hypertension Qualified Code(s): I10 - Essential (primary) hypertension (7) Metastases to the liver Current Visit: Yes Status: Chronic Assessment and plan: Unknown primary. Liver biopsy pathology results are pending. Consult oncology once pathology results are available. (8) Thrombocytopenia Current Visit: Yes Status: Chronic Assessment and plan: Remains thrombocytopenic. No active bleeding. Patient was receiving IV heparin. High risk for bleeding complications. Monitor closely. - Time Spent With Patient Total time spent is greater than 50% in coordination of care (as documented) at patient's floor/unit and/or counseling patient: - Subjective Interval history: Patient went into rapid atrial tachycardia-from A. fib/SVT earlier this morning. Initially improved with vagal maneuvers back patient's heart rate went up to 170s/180s. As such she was given adenosine 6 mg followed by 2 doses of 12 mg with no improvement in heart rate. She was then given 10 mg of IV Lopressor which improved her heart rate to 150/m. EKG showed atrial fibrillation. Her blood pressure has been low and so she was placed on amiodarone after she received 150 mg of amiodarone push. She was then transferred to ICU but on the way she converted to sinus rhythm. Her blood pressure has since improved. - Constitutional Vitals: Temp Pulse Resp BP Pulse Ox 97.9 F 79 24 135/68 94 01/20/18 11:01/20/18 11:01/20/18 11:18 01/20/18 11:01/20/18 11:18 General appearance: Present: cooperative, A&O X 3, pleasant, no acute distress, underweight, answers questions appropriately - Neck Neck exam general surgery: Present: supple, trachea midline. Absent: lymphadenopathy - Respiratory Respiratory exam: Present: CTAB. Absent: accessory muscle use, rales, rhonchi, wheezes - Cardiovascular Cardiovascular exam: Present: irregular rhythm, +S1, +S2, tachycardia. Absent: diastolic murmur, gallop, rubs, systolic murmur - GI/Abdominal GI/Abdominal exam: Present: normal bowel sounds, no peritoneal signs. Absent: distended, tenderness - Extremities Exam Extremities exam: Present: warm, radial pulses palpable and symmetrical. Absent : calf tenderness, cyanotic, pedal edema - Neurological Exam Neurological exam: Present: alert, CN II-XII intact, oriented X3, no focal deficits. Absent: facial droop, speech deficit - Skin Skin exam: Present: dry, intact Internal Medicine: Result - Labs CBC & Chem 7: 01/20/18 11:30 01/20/18 03:24 Labs: Short CBC 06/15/18 06/16/18 06/16/18 Range/Units 19:28 01:42 03:24 WBC 4.0 L (4.3-11.1) K/mcL Hgb 9.8 L 9.7 L 9.5 L (11.5-15.4) g/dL Hct 31.3 L 30.6 L 30.6 L (35.3-44.9) % Plt Count 35 L (140-400) K/mcL Neutrophils # 3.6 (1.6-8.9) K/mcL 01/20/18 01/20/18 Range/Units 08:44 11:30 WBC 4.4 (4.3-11.1) K/mcL Hgb 9.1 L 9.4 L (11.5-15.4) g/dL Hct 29.1 L 30.5 L (35.3-44.9) % Plt Count 38 L (140-400) K/mcL Neutrophils # 4.0 (1.6-8.9) K/mcL BMP 01/20/18 03:24 Sodium 137 Potassium 4.3 Chloride 98 Carbon Dioxide 29 BUN 30 H Creatinine 2.74 H Glucose 106 H Calcium 8.9 Cardiac Enzymes 01/19/18 01/20/18 Range/Units 19:28 01:30 Troponin I 4.40 H* 3.72 H* (< 0.04) ng/mL - ABG Interpretation ABG results: PT/INR, D-dimer PT 13.1 Seconds (9.4-12.1) H 01/19/18 03:33 - Impressions Impressions Chest X-Ray 01/20/18 09:05 IMPRESSION: 1. Interval development of multilobar airspace opacities. In the proper clinical setting, finding would be compatible with pneumonia. 2. Stable mild enlargement of the cardiac silhouette. D/ / 01/20/2018 11:21:25 Galo Holbrook MD / constantineyer Interpreting Provider: Galo Holbrook MD KUB X-Ray 01/20/18 09:09 IMPRESSION: Nonobstructive bowel gas pattern. Bilateral nephrolithiasis as seen on recent CT. D/ / Dilip Hester MD / Dilip Hester MD Interpreting Provider: Dilip Hester MD - VTE Documentation of Mechanical Device: Intermittent pneumatic compression device Consult Discharge Plan - Plan Referrals: Yonatan Aleman DO [Primary Care Provider] - 01/29/18 1:00 pm
[2018-01-20] MEDS: Amiodarone Premix 360 MG/200 ML BAG IVC SCH (14:50)
[2018-01-20 21:05] LABS: Hematocrit 31.6 % (35.3-44.9); Hemoglobin 9.8 g/dL (11.5-15.4)
[2018-01-21 03:37] LABS: Red Blood Count 2.97 M/mcL (3.82-4.97); Red Cell Distribution Width 16.3 % (11.5-14.5)
[2018-01-21 03:39] LABS: Hematocrit 30.8 % (35.3-44.9); Hemoglobin 9.5 g/dL (11.5-15.4); Mean Corpuscular HGB Conc 30.8 g/dL (31.6-35.5); Mean Corpuscular Volume 103.7 fL (83.0-100.0); Nucleated Red Blood Cells 0.3 /100 WBC (0); Platelet Count 33 K/mcL (140-400)
[2018-01-21 03:55] LABS: Calcium 9.3 mg/dL (8.6-10.3); Magnesium 1.8 mg/dL (1.6-2.6); Potassium 4.6 mEq/L (3.5-5.1)
[2018-01-21] MEDS: Amiodarone Premix 360 MG/200 ML BAG IVC SCH (04:05)
[2018-01-21 04:24] LABS: Lymphocytes # 0.3 K/mcL (0.6-4.6); Monocytes # 0.3 K/mcL (0.0-1.3); Neutrophils # 6.3 K/mcL (1.6-8.9); Platelet Estimate Decreased (Normal)
[2018-01-21 04:25] LABS: Microcytosis Present (Not Present)
[2018-01-21] MEDS: Ipratropium/Albuterol Neb 3 ML IH SCH ×4 (05:10→22:21)
[2018-01-21] MEDS: *HR* OxyCODONE Immed Rel 5 MG TABLET PO PRN (05:35)
--- NOTE | 2018-01-21 07:10 | Pulmonology Progress Note ---
Date of Encounter: 01/21/18 Time of Encounter: 07:10 Assessment and Plan (1) Acute and chronic respiratory failure Current Visit: Yes Status: Acute Patient is requiring noninvasive ventilation to support respiration currently this is secondary to pneumonia with COPD exacerbation complicated by underlying hydrostatic pulmonary edema and coronary artery disease. High risk for further decompensation requiring endotracheal intubation which the patient would accept at this point Qualifiers: Respiratory failure complication: hypoxia and hypercapnia Qualified Code(s) : J96.21 - Acute and chronic respiratory failure with hypoxia; J96.22 - Acute and chronic respiratory failure with hypercapnia (2) COPD exacerbation Current Visit: Yes Status: Acute We will continue schedule bronchodilators and I have added IV steroid formulation to her treatment. (3) ESRD (end stage renal disease) Current Visit: Yes Status: Acute Continue dialysis per schedule nephrology following Continue daily monitoring of serum electrolytes (4) Atrial fibrillation Current Visit: Yes Status: Acute This is currently rate controlled and she has been loaded with amiodarone and will complete 24 hour infusion which I suspect can be stopped today we will continue her home beta esther. Qualifiers: Atrial fibrillation type: unspecified Qualified Code(s): I48.91 - Unspecified atrial fibrillation (5) Chronic anemia Current Visit: Yes Status: Acute Stable hemoglobin and hematocrit this is secondary to anemia associated with ESRD (6) Pneumonia Current Visit: Yes Status: Acute Possibly aspiration pneumonia context of syncope. Broad-spectrum antimicrobials for hospital associated organisms and aspiration have been instituted collect sputum and possible blood cultures will be obtained. Check lactate. Blood pressure stable at this time I think further aggressive fluids with her underlying cardiopulmonary status would be deleterious. Antimicrobials dosed for ESRD per pharmacy Qualifiers: Lung location: unspecified part of lung Qualified Code(s): J18.9 - Pneumonia, unspecified organism (7) Lung mass Current Visit: Yes Status: Acute This is concerning for primary lung malignancy with metastases to liver and bone. She has been evaluated by oncology overall poor prognosis and poor candidate for chemotherapy given history of medical noncompliance. The results of liver biopsy are pending at this time (8) Thrombocytopenia Current Visit: Yes Status: Chronic This is chronic in nature and stable. (9) DVT prophylaxis Current Visit: No Status: Acute Although she has chronic anemia and thrombocytopenia have instituted chemical DVT prophylaxis given her very high risk of venous thromboembolism while inpatient and seriously ill with underlying malignancy. Can have to monitor her blood counts cautiously (10) Hypertension Current Visit: No Status: Chronic We will slowly reintroduce her home medication regimen blood pressure stable at this time Qualifiers: Hypertension type: essential hypertension Qualified Code(s): I10 - Essential (primary) hypertension (11) Syncope and collapse Current Visit: Yes Status: Acute Possibly related to cardiac cause from non-ST elevation [place] She will need MRI of the brain when more stable to exclude metastatic disease (12) NSTEMI (non-ST elevated myocardial infarction) Current Visit: Yes Status: Acute Cardiology following this they are recommending conservative management given her very bleeding risk and serious underlying comorbid conditions including likely metastatic lung cancer (13) Goals of care, counseling/discussion Current Visit: Yes Status: Acute I had extensive conversations with the patient and her family regarding goals of care per. Currently she is full code and would accept CPR and endotracheal intubation mechanical ventilation. I suspect there is a degree of denial in her understanding of her current health state which reflects multiple medical conditions and their terminal stages including suspected lung cancer with malignancy. We will continue to discuss with the patient about options for care outside of aggressive care which I suspect will not have any therapeutic benefit going forward Subjective Principal diagnosis: Syncope Interval history: Patient has remained hemodynamically stable. Unfortunately she has become more hypoxic over the course of the morning. Requiring high flow oxygen and then BiPAP to maintain oxygen saturation. She says she is having much more increased difficulty with breathing. CXR is concerning for progressive pneumonia Objective PUL Vital signs: Last Vital Signs Temp 98.0 F 01/21/18 03:17 Pulse 105 01/21/18 06:00 Resp 19 01/21/18 06:00 BP 120/72 01/21/18 06:00 Pulse Ox 91 01/21/18 06:00 General appearance: other (Frail appearing she is sleepy but easily arousable) Eyes: nonicteric Neck: supple Effort: mildly labored Auscultation: right: diminished breath sounds, rhonchi, bilateral: wheezes Cardiovascular: regular rate and rhythm Gastrointestinal: normoactive bowel sounds Extremities: no cyanosis, no edema, no clubbing non-focal exam, pupils equal and round mood appropriate Results - Laboratory Findings CBC and BMP: 01/21/18 03:26 01/21/18 03:26 PT/INR, D-dimer PT 13.1 Seconds (9.4-12.1) H 01/19/18 03:33 Abnormal lab findings: Abnormal lab results RBC 2.97 M/mcL (3.82-4.97) L 01/21/18 03:26 Hgb 9.5 g/dL (11.5-15.4) L 01/21/18 03:26 Hct 30.8 % (35.3-44.9) L 01/21/18 03:26 MCV 103.7 fL (83.0-100.0) H 01/21/18 03:26 MCHC 30.8 g/dL (31.6-35.5) L 01/21/18 03:26 RDW 16.3 % (11.5-14.5) H 01/21/18 03:26 Plt Count 33 K/mcL (140-400) L 01/21/18 03:26 Band Neutrophils % 24.0 % (0-4) H 01/21/18 03:26 Metamyelocytes % 4.0 % (0) H 01/21/18 03:26 Myelocytes % 2.0 % (0) H 01/21/18 03:26 Lymphocytes # 0.3 K/mcL (0.6-4.6) L 01/21/18 03:26 Nucleated RBCs/100 WBC 0.3 /100 WBC (0) H 01/21/18 03:26 Platelet Estimate Decreased (Normal) L 01/21/18 03:26 Anisocytosis 1+ (Not Present) A 01/20/18 08:44 Microcytosis Present (Not Present) A 01/21/18 03:26 PT 13.1 Seconds (9.4-12.1) H 01/19/18 03:33 BUN 49 mg/dL (8-23) H 01/21/18 03:26 Creatinine 4.00 mg/dL (0.60-1.20) H 01/21/18 03:26 Est GFR ( Amer) 14 (> 60) L 01/21/18 03:26 Est GFR (Non-Af Amer) 11 (> 60) L 01/21/18 03:26 Glucose 120 mg/dL (70-105) H 01/21/18 03:26 Calculated Osmolality 304 (280-300) H 01/21/18 03:26 Troponin I 3.72 ng/mL (< 0.04) H* 01/20/18 01:30 - Diagnostic Findings Chest x-ray: report reviewed, image reviewed - Clinical Findings Intake & Output: Intake & Output 01/20/18 01/20/18 01/21/18 15:59 23:59 07:59 Intake Total 0 / 0 200 / 200 Output Total 0 / 0 Balance -10 / -10 -10 -10 200 / 200 Weight 55.7 kg - VTE Documentation of Mechanical Device: Intermittent pneumatic compression device Consult Discharge Plan - Plan Referrals: Yonatan Aleman DO [Primary Care Provider] - 01/29/18 1:00 pm
[2018-01-21] MEDS ORDERED: Vancomycin 1 EACH in EMPTY BAG 1 EACH IVPB SCH (08:00)
[2018-01-21] MEDS: *HR* Heparin 5,000 UNIT/ML VIAL SQ SCH ×3 (08:02→20:44)
[2018-01-21] MEDS: methylPREDNISolone 125 MG/2 ML VIAL IVP SCH ×2 (08:08→15:18)
[2018-01-21] MEDS: Piperacillin/Tazobactam 3.375 GM in 0.9 % Sodium Chloride Mini Bag 100 ML IVPB SCH ×2 (08:09→17:49)
[2018-01-21] MEDS: Budesonide/Formoterol 80/4.5 MDI IH SCH ×2 (09:22→22:20)
--- NOTE | 2018-01-21 10:05 | Nephrology Progress Note ---
Date of Encounter: 01/21/18 Time of Encounter: 09:45 - Assessment and Plan (1) End stage renal disease Current Visit: No Status: Chronic Not compliant with BP meds at home. Hypotension most likely related to scheduled doses, in hospital compliance and medication will need adjusted. No HD today, keeping MWF schedule. Subjective Principal diagnosis: Syncope Interval history: Bipap. Arouses easily, shakes head yes/no to questions. Objective - Vital Signs Vital signs: Vital Signs Temp Pulse Resp BP Pulse Ox 01/21/18 09:26 14 100 01/21/18 08:00 104 16 113/86 98 01/21/18 07:47 98.2 F 01/21/18 07:00 104 17 121/60 96 01/21/18 06:50 80 01/21/18 06:00 105 19 120/72 91 01/21/18 05:10 20 108/70 90 01/21/18 05:00 93 16 108/70 92 01/21/18 04:00 93 16 109/62 90 01/21/18 03:17 98.0 F 01/21/18 03:00 91 16 108/63 92 01/21/18 02:00 92 17 112/61 92 01/21/18 01:00 92 15 109/60 91 01/21/18 00:00 96 16 107/55 91 01/20/18 23:13 16 99/49 93 01/20/18 23:00 88 16 99/49 92 01/20/18 22:35 97.3 F L 01/20/18 22:00 91 20 96/56 91 01/20/18 21:00 90 23 114/69 90 01/20/18 20:00 89 18 102/59 92 01/20/18 19:04 98.0 F 01/20/18 19:00 89 21 105/63 92 01/20/18 18:00 87 16 89/50 91 01/20/18 17:00 86 18 108/66 91 01/20/18 16:35 24 92 01/20/18 16:00 80 18 87/62 94 01/20/18 15:00 98.2 F 79 18 109/62 94 01/20/18 14:00 77 20 104/62 95 01/20/18 13:00 80 18 109/63 94 01/20/18 12:00 84 18 117/55 94 01/20/18 11:18 24 94 01/20/18 11:00 97.9 F 81 20 135/68 98 Intake and Output 01/20/18 01/21/18 01/21/18 23:59 07:59 15:59 Intake Total 200 / 200 Output Total 10 / 10 0 / 0 Balance -10 / -10 200 / 200 Intake: IV Fluids 200 / 200 Amiodarone Drip Premix 360mg/ 200 / 200 200mL 360 mg In 200 ml @ 0.5 MG /MIN 16.667 mls/hr IVC CONT MILES Rx#:[id number] Output: Urine 0 / 0 Other: Weight 55.7 kg Patient Weight 01/21/18 23:59 Weight 55.7 kg - General Appearance General appearance: Present: well-developed, well-nourished, appears started age EENT: Present: mucous membranes moist Neck: Present: no JVD Respiratory: Present: wheezing Cardiology: Present: no edema, irregular rhythm Dialysis Vascular Access: Arteriovenous Fistula Gastrointestinal: Present: normoactive bowel sounds, no tenderness Integumentary: Present: warm and dry Psychiatric: Present: mood/affect appropriate, cooperative - Lab 01/21/18 03:26 01/21/18 03:26 Most recent lab results Calcium 9.3 mg/dL (8.6-10.3) 01/21/18 03:26 Magnesium 1.8 mg/dL (1.6-2.6) 01/21/18 03:26 - VTE Documentation of Mechanical Device: Intermittent pneumatic compression device Consult Discharge Plan - Plan Referrals: Yonatan Aleman DO [Primary Care Provider] - 01/29/18 1:00 pm
[2018-01-21] MEDS: Renal Vitamin 1 MG CAPSULE PO SCH (10:08)
[2018-01-21] MEDS: amLODIPine 5 MG TABLET PO SCH (10:08)
[2018-01-21] MEDS: Folic Acid 1 MG TABLET PO SCH (10:23)
[2018-01-21] MEDS: Aspirin 81 MG TAB.CHEW PO SCH (10:23)
[2018-01-21 19:39] LABS: Acinetobacter baumannii by PCR Not Detected (Not Detect); Candida albicans by PCR Not Detected (Not Detect); Candida glabrata by PCR Not Detected (Not Detect); Candida krusei by PCR Not Detected (Not Detect); Candida parapsilosis by PCR Not Detected (Not Detect); Candida tropicalis by PCR Not Detected (Not Detect); Escherichia coli by PCR ***DETECTED*** (Not Detect); Klebsiella oxytoca by PCR Not Detected (Not Detect); Klebsiella pneumoniae by PCR Not Detected (Not Detect); Pseudomonas aeruginosa by PCR Not Detected (Not Detect); Serratia marcescens by PCR Not Detected (Not Detect); Staphylococcus aureus by PCR Not Detected (Not Detect); Streptococcus agalactiae(B)PCR Not Detected (Not Detect); Streptococcus by PCR Not Detected (Not Detect); Streptococcus pneumoniae PCR Not Detected (Not Detect); Streptococcus pyogenes (A) PCR Not Detected (Not Detect); blaKPC Carbapenem-Resist Gene Not Detected (Not Detect); mecA Methicillin-Resist Gene Not Detected (Not Detect); vanA/B Vancomycin-Resist Genes Not Detected (Not Detect)
[2018-01-22] MEDS: methylPREDNISolone 125 MG/2 ML VIAL IVP SCH ×2 (00:35→08:09)
[2018-01-22] MEDS: Ipratropium/Albuterol Neb 3 ML IH SCH ×4 (04:43→22:51)
[2018-01-22] MEDS: *HR* Heparin 5,000 UNIT/ML VIAL SQ SCH (06:26)
[2018-01-22] MEDS: Piperacillin/Tazobactam 3.375 GM in 0.9 % Sodium Chloride Mini Bag 100 ML IVPB SCH ×2 (06:26→18:09)
--- NOTE | 2018-01-22 06:46 | Electrocardiograph Report ---
[address] [address] Test Date: 2018-01-19 Pat Name: Rita Orellana Department: 110 Room: 01 Gender: F Nail Feeder: JOSE J : 1950 Requested By: Fabienne Andrade Order Number: [id number] Reading MD: Rhys Pham Measurements Intervals Delta Rate: 100 P: 85 AK: 126 QRS: 77 QRSD: 88 T: 185 QT: 341 QTc: 398 Interpretive Statements SINUS TACHYCARDIA LEFT VENTRICULAR HYPERTROPHY AND ST-T CHANGE Electronically Signed On 01-22-2018 6:45:13 EDT by Rhys Pham
[2018-01-22 07:14] LABS: Enterococcus by PCR ***DETECTED*** (Not Detect)
[2018-01-22] MEDS ORDERED: 0.9 % Sodium Chloride 2,000 ML ONE (07:22)
[2018-01-22] MEDS: amLODIPine 5 MG TABLET PO SCH (07:56)
[2018-01-22] MEDS: Renal Vitamin 1 MG CAPSULE PO SCH (08:09)
[2018-01-22] MEDS: Aspirin 81 MG TAB.CHEW PO SCH (08:09)
[2018-01-22] MEDS: Folic Acid 1 MG TABLET PO SCH (08:09)
--- NOTE | 2018-01-22 08:33 | Pulmonology Progress Note ---
<DeandraAubrey M - Last Filed: 01/22/18 09:42> Date of Encounter: 01/22/18 Objective PUL Vital signs: Last Vital Signs Temp 98.7 F 01/22/18 07:22 Pulse 98 01/22/18 09:00 Resp 19 01/22/18 09:00 BP 100/58 01/22/18 09:00 Pulse Ox 92 01/22/18 09:00 Results - Laboratory Findings CBC and BMP: 01/22/18 07:00 01/22/18 06:50 PT/INR, D-dimer PT 13.1 Seconds (9.4-12.1) H 01/19/18 03:33 Abnormal lab findings: Abnormal lab results RBC 2.78 M/mcL (3.82-4.97) L 01/22/18 07:00 Hgb 8.9 g/dL (11.5-15.4) L 01/22/18 07:00 Hct 29.5 % (35.3-44.9) L 01/22/18 07:00 MCV 106.1 fL (83.0-100.0) H 01/22/18 07:00 MCHC 30.2 g/dL (31.6-35.5) L 01/22/18 07:00 RDW 16.4 % (11.5-14.5) H 01/22/18 07:00 Plt Count 33 K/mcL (140-400) L 01/22/18 07:00 Metamyelocytes % 4.0 % (0) H 01/21/18 03:26 Myelocytes % 2.0 % (0) H 01/21/18 03:26 Lymphocytes # 0.3 K/mcL (0.6-4.6) L 01/21/18 03:26 Nucleated RBCs/100 WBC 0.3 /100 WBC (0) H 01/21/18 03:26 Platelet Estimate Decreased (Normal) L 01/22/18 07:00 Immature Plt Fraction 6.5 % (1.1-6.1) H 01/22/18 07:00 Anisocytosis 1+ (Not Present) A 01/22/18 07:00 Microcytosis Present (Not Present) A 01/21/18 03:26 PT 13.1 Seconds (9.4-12.1) H 01/19/18 03:33 Potassium 5.3 mEq/L (3.5-5.1) H 01/22/18 06:50 BUN 76 mg/dL (8-23) H 01/22/18 06:50 Creatinine 5.21 mg/dL (0.60-1.20) H 01/22/18 06:50 Est GFR ( Amer) 10 (> 60) L 01/22/18 06:50 Est GFR (Non-Af Amer) 8 (> 60) L 01/22/18 06:50 POC Glucose 116 mg/dL (70-99) H 01/21/18 06:47 Calculated Osmolality 318 (280-300) H 01/22/18 06:50 Troponin I 3.72 ng/mL (< 0.04) H* 01/20/18 01:30 Enterobacteriac sp PCR DETECTED (Not Detect) A 01/21/18 07:45 Enterococcus sp PCR DETECTED (Not Detect) A 01/21/18 07:45 E. coli (PCR) DETECTED (Not Detect) A 01/21/18 07:45 - Microbiology Findings Microbiology Findings: Microbiology, Last 48 Hours 01/21/18 07:45 Blood Culture - Preliminary Peripheral Venipuncture Gram Negative Bandar 01/21/18 07:45 Blood Culture - Preliminary Peripheral Venipuncture Gram Negative Bandar - Clinical Findings Intake & Output: Intake & Output 01/21/18 01/22/18 01/22/18 23:59 07:59 15:59 Intake Total 0 / 0 100 / 100 Output Total 0 / 0 0 / 0 0 / 0 Balance 0 / 0 100 / 100 0 / 0 Weight 58.8 kg Consult Discharge Plan - Plan Referrals: Yonatan Aleman DO [Primary Care Provider] - 01/29/18 1:00 pm - Attending Attestation I examined this patient and my medical decision-making was reviewed with the Resident Physician. I agree with the documented findings, disposition and treatment plan as described except to the extent set forth below. Patient seen and examined. Labs, radiology, chart personally reviewed. Agree with resident's history and physical, assessment, plan with following comments: MAILING JOGGER: Patient follows commands, Pulmonary: Patient with significant underlying lung disease which carries poor prognosis and with all her other comorbidities palliative care is appropriate and continue noninvasive ventilation with bronchodilators. Cardiovascular: Patient blood pressure is borderline GI: Nutrition per dietary and GI prophylaxis per routine Heme: DVT prophylaxis per routine ID: Continue antibiotics and plan to de-escalation Renal; nephrology follow-up Endorcine: blood glucose is monitored Lines: all lines checked and no evidence of infections Skin: skin care to prevent pressure ulcers per nursing routine care Overall prognosis is poor <Cyndi Chu - Last Filed: 01/22/18 15:22> Date of Encounter: 01/22/18 Time of Encounter: 08:33 Assessment and Plan (1) Pneumonia Current Visit: Yes Status: Acute Possibly d/t aspiration in setting of syncope CXR shows residual basilar opacities possibly reflecting airspace disease like PNA Afebrile; one temp < 96.8F since admission Weak cough, no sputum available for culture Plan Continue Zosyn (day 2) and Vancomycin (day 2) Will de-escalate abx as able Culture sputum if sample produced Qualifiers: Pneumonia type: due to unspecified organism Laterality: right Lung location: lower lobe of lung Qualified Code(s): J18.1 - Lobar pneumonia, unspecified organism (2) ESRD (end stage renal disease) on dialysis Current Visit: Yes Status: Chronic M W F hemodialysis schedule Pt of Dr. Calderón Plan Proceed with scheduled dialysis (3) COPD exacerbation Current Visit: Yes Status: Acute Currently smokes Dependent on 4L home O2 Plan Decrease IV steroid to 40mg Q8H Continue oxymask if O2 sat's allow, NIPPV Continue bronchodilators Continue antibiotics as above (4) Lung mass Current Visit: Yes Status: Acute CXR 01/20/18 notes previously described right middle lobe and mediastinal nodes seen on last CT chest CT chest 01/10/18 showing: New lobulated mass-like opacity of right middle lobe with enlarged mediastinal lymph nodes Multiple reticulonodular densities within lungs bilaterally--inflammatory vs lymphangitic carcinomatosis Multiple lesions in liver, compatible with diffuse metastatic disease Evidence for bony metastatic disease in T10 vertebral body (5) Syncope and collapse Current Visit: Yes Status: Acute Etiology unclear, cardiogenic vs possible metastatic brain lesions? Syncopal episode at home, witnessed by home health nurse who performed CPR Vfib en route to [place], EMS cardioverted Plan Fall precautions Consider head CT, MRI (6) NSTEMI (non-ST elevated myocardial infarction) Current Visit: Yes Status: Acute Troponin 7.09--> 4.40--> 3.72 EKG showed sinus tachycardia and LVH Cardiology recommends medical management, not a candidate for invasive therapies No further cardiac testing, per cardiology Plan Stop heparin and monitor for active bleeding, Plt < 33K (7) Thrombocytopenia Current Visit: Yes Status: Chronic Plt 33K No evidence of active bleeding at this time Plan Follow with morning CBC's Hold heparin for Plt < 50K (8) Atrial fibrillation Current Visit: Yes Status: Chronic HR 90's to low 100's Regular rhythm on patient monitor Plan Stop amlodipine for now, BP's have been soft Metoprolol not held, may need if HR increases beyond 110's-120's Continue patient monitor Qualifiers: Atrial fibrillation type: unspecified Qualified Code(s): I48.91 - Unspecified atrial fibrillation (9) Chronic anemia Current Visit: Yes Status: Acute Chronic anemia in setting of ESRD Hgb 8.9 / Hct 29.5 today Hgb is within her baseline for this year (8.4-10.3) (10) Goals of care, counseling/discussion Current Visit: Yes Status: Acute Overall, her long-term prognosis is poor Lung mass with liver mets was diagnosed last admission, didn't go to scheduled oncology appointment Multiple, chronic co-morbidities including: ESRD, HD non-compliance, chronic respiratory failure on home O2, CHF, thoracoabdominal aortic aneurysm (h/o rupture?), and CAD s/p CABG Children: 1 daughter and 1 son Current code status: Full code, would accept CPR with intubation for mechanical ventilation ? Living Will signed, not yet notarized Unfortunately, aggressive care/interventions are unlikely to produce significant therapeutic or curative results Plan Palliative care consulted (11) DVT prophylaxis Current Visit: Yes Status: Acute Stop heparin, platelets are < 50K Start EPCDs Subjective Principal diagnosis: Syncope Interval history: Pt seen and examined this morning. She is sitting in bedside chair wearing an oxymask, sleeping. Frail and weak appearing. Answers some questions before falling back asleep quickly. She denies chest pain, fevers/chills, nausea/ vomiting. Objective PUL Vital signs: Last Vital Signs Temp 98.7 F 01/22/18 07:22 Pulse 99 01/22/18 08:00 Resp 18 01/22/18 08:00 BP 98/50 01/22/18 08:00 Pulse Ox 92 01/22/18 08:00 General appearance: no acute distress, lethargic, asleep Auscultation: bilateral: wheezes, rhonchi Cardiovascular: regular rate and rhythm Gastrointestinal: normoactive bowel sounds, tender Extremities: no edema unable to assess due to mental status Results - Laboratory Findings CBC and BMP: 01/22/18 07:00 01/22/18 06:50 PT/INR, D-dimer PT 13.1 Seconds (9.4-12.1) H 01/19/18 03:33 Abnormal lab findings: Abnormal lab results RBC 2.97 M/mcL (3.82-4.97) L 01/21/18 03:26 Hgb 9.5 g/dL (11.5-15.4) L 01/21/18 03:26 Hct 30.8 % (35.3-44.9) L 01/21/18 03:26 MCV 103.7 fL (83.0-100.0) H 01/21/18 03:26 MCHC 30.8 g/dL (31.6-35.5) L 01/21/18 03:26 RDW 16.3 % (11.5-14.5) H 01/21/18 03:26 Plt Count 33 K/mcL (140-400) L 01/21/18 03:26 Band Neutrophils % 24.0 % (0-4) H 01/21/18 03:26 Metamyelocytes % 4.0 % (0) H 01/21/18 03:26 Myelocytes % 2.0 % (0) H 01/21/18 03:26 Lymphocytes # 0.3 K/mcL (0.6-4.6) L 01/21/18 03:26 Nucleated RBCs/100 WBC 0.3 /100 WBC (0) H 01/21/18 03:26 Platelet Estimate Decreased (Normal) L 01/21/18 03:26 Anisocytosis 1+ (Not Present) A 01/20/18 08:44 Microcytosis Present (Not Present) A 01/21/18 03:26 PT 13.1 Seconds (9.4-12.1) H 01/19/18 03:33 BUN 49 mg/dL (8-23) H 01/21/18 03:26 Creatinine 4.00 mg/dL (0.60-1.20) H 01/21/18 03:26 Est GFR ( Amer) 14 (> 60) L 01/21/18 03:26 Est GFR (Non-Af Amer) 11 (> 60) L 01/21/18 03:26 Glucose 120 mg/dL (70-105) H 01/21/18 03:26 POC Glucose 116 mg/dL (70-99) H 01/21/18 06:47 Calculated Osmolality 304 (280-300) H 01/21/18 03:26 Troponin I 3.72 ng/mL (< 0.04) H* 01/20/18 01:30 Enterobacteriac sp PCR DETECTED (Not Detect) A 01/21/18 07:45 Enterococcus sp PCR DETECTED (Not Detect) A 01/21/18 07:45 E. coli (PCR) DETECTED (Not Detect) A 01/21/18 07:45 - Microbiology Findings Microbiology Findings: Microbiology, Last 48 Hours 01/21/18 07:45 Blood Culture - Preliminary Peripheral Venipuncture Gram Negative Bandar 01/21/18 07:45 Blood Culture - Preliminary Peripheral Venipuncture Gram Negative Bandar - Clinical Findings Intake & Output: Intake & Output 01/21/18 01/22/18 01/22/18 23:59 07:59 15:59 Intake Total 0 / 0 100 / 100 Output Total 0 / 0 0 / 0 0 / 0 Balance 0 / 0 100 / 100 0 / 0 Weight 58.8 kg - VTE Documentation of Mechanical Device: Intermittent pneumatic compression device
[2018-01-22 08:36] LABS: Mean Platelet Volume 11.6 fL (9.4-12.4)
--- NOTE | 2018-01-22 08:37 | Nephrology Progress Note ---
Date of Encounter: 01/22/18 Time of Encounter: 08:15 - Assessment and Plan (1) End stage renal disease Current Visit: No Status: Chronic Not compliant with BP meds at home. Hypotension most likely related to scheduled doses, in hospital compliance and medication will need adjusted. HD today, keeping MWF schedule. Orders given. Subjective Principal diagnosis: Syncope Interval history: Sitting up in chair. Oxymask. NSR, AR 98 Objective - Vital Signs Vital signs: Vital Signs Temp Pulse Resp BP Pulse Ox 01/22/18 08:00 99 18 98/50 92 01/22/18 07:22 98.7 F 01/22/18 07:00 99 18 95/48 89 01/22/18 06:00 98 16 81/58 90 01/22/18 05:00 90 16 100/53 91 01/22/18 04:55 16 92/53 92 01/22/18 04:00 98.3 F 90 18 93/57 90 01/22/18 03:00 84 12 97/52 93 01/22/18 02:12 78 01/22/18 02:00 84 14 95/54 93 01/22/18 01:00 84 14 94/51 94 01/22/18 00:00 98.3 F 83 14 89/54 92 01/21/18 23:00 82 14 89/56 91 01/21/18 22:28 78 01/21/18 22:24 14 90/51 93 01/21/18 22:00 77 16 90/57 93 01/21/18 21:00 77 14 90/51 92 01/21/18 20:31 14 104/52 92 01/21/18 20:00 97.8 F 78 11 101/52 93 01/21/18 19:00 78 11 94/55 93 01/21/18 18:00 78 11 93/54 93 01/21/18 17:00 75 11 95/54 92 01/21/18 16:46 13 93 01/21/18 16:33 98.6 F 01/21/18 15:25 80 01/21/18 15:00 80 10 92/55 92 01/21/18 14:00 82 14 94/50 87 01/21/18 13:12 11 92 01/21/18 13:00 85 12 93/56 92 01/21/18 12:00 89 14 99/63 90 01/21/18 11:55 98.2 F 01/21/18 11:00 93 14 110/60 90 01/21/18 10:00 96 12 102/59 89 01/21/18 09:26 14 100 01/21/18 09:00 101 13 92/38 97 Intake and Output 01/21/18 01/22/18 01/22/18 23:59 07:59 15:59 Intake Total 0 / 0 100 / 100 Output Total 0 / 0 0 / 0 0 / 0 Balance 0 / 0 100 / 100 0 / 0 Intake: IV Fluids 100 / 100 Zosyn 3.375 GM In 0.9 % Sodium 100 / 100 Chloride (Mini-Bag +) 100 ML @ 25 mls/hr IVPB Q12HR [facility] Rx#: [id number] Oral 0 / 0 0 / 0 Output: Urine 0 / 0 0 / 0 0 / 0 Other: Weight 58.8 kg Patient Weight 01/22/18 23:59 Weight 58.8 kg - General Appearance General appearance: Present: well-developed, well-nourished, appears started age EENT: Present: mucous membranes moist Neck: Present: no JVD Respiratory: Present: wheezing, rhonchi Cardiology: Present: no edema, regular rate, regular rhythm Dialysis Vascular Access: Arteriovenous Fistula Gastrointestinal: Present: normoactive bowel sounds, no tenderness Integumentary: Present: warm and dry Psychiatric: Present: mood/affect appropriate, cooperative - Lab 01/21/18 03:26 01/21/18 03:26 Most recent lab results Calcium 9.3 mg/dL (8.6-10.3) 01/21/18 03:26 Magnesium 1.8 mg/dL (1.6-2.6) 01/21/18 03:26 - VTE Documentation of Mechanical Device: Intermittent pneumatic compression device Consult Discharge Plan - Plan Referrals: Yonatan Aleman DO [Primary Care Provider] - 01/29/18 1:00 pm
[2018-01-22 08:38] LABS: Hematocrit 29.5 % (35.3-44.9); Hemoglobin 8.9 g/dL (11.5-15.4); Immature Platelets 6.5 % (1.1-6.1); Mean Corpuscular HGB Conc 30.2 g/dL (31.6-35.5); Mean Corpuscular Volume 106.1 fL (83.0-100.0); Platelet Count 33 K/mcL (140-400); Red Blood Count 2.78 M/mcL (3.82-4.97); Red Cell Distribution Width 16.4 % (11.5-14.5)
[2018-01-22 08:55] LABS: Calcium 9.1 mg/dL (8.6-10.3); Potassium 5.3 mEq/L (3.5-5.1)
[2018-01-22] MEDS ORDERED: 0.9 % Sodium Chloride 250 ML IVC PRN (09:26)
[2018-01-22] MEDS ORDERED: 0.9 % Sodium Chloride 1,000 ML PRIME SCH (09:30)
[2018-01-22 09:31] LABS: Anisocytosis 1+ (Not Present); Monocytes # 1.2 K/mcL (0.0-1.3); Neutrophils # 7.4 K/mcL (1.6-8.9); Platelet Estimate Decreased (Normal)
[2018-01-22] MEDS: Budesonide/Formoterol 80/4.5 MDI IH SCH ×2 (10:18→22:51)
--- NOTE | 2018-01-22 11:31 | Palliative - Consult Note ---
Date of Encounter: 01/22/18 Time of Encounter: 11:00 - Assessment and Plan (1) Counseling regarding advanced care planning and goals of care Current Visit: Yes Status: Acute Assessment and plan: Patient currently recieving dialysis. Long discussion with son, Sawyer, and daughter Pennie with myself and Kaylen Stubbs - oncology. Discussed currently clinical status and biopsy results. Discussed that she may not recover or get strong enough to proceed with cancer treatment. Discussed goals of care - which children state they will need to speak with pt. We will be meeting again at 1500 tomorrow and discuss with patient. (2) Metastatic lung carcinoma Current Visit: Yes Status: Acute Qualifiers: Laterality: unspecified laterality Qualified Code(s): C78.00 - Secondary malignant neoplasm of unspecified lung (3) Acute and chronic respiratory failure Current Visit: Yes Status: Acute Qualifiers: Respiratory failure complication: hypoxia and hypercapnia Qualified Code(s) : J96.21 - Acute and chronic respiratory failure with hypoxia; J96.22 - Acute and chronic respiratory failure with hypercapnia (4) COPD exacerbation Current Visit: Yes Status: Acute (5) ESRD (end stage renal disease) Current Visit: Yes Status: Acute Palliative-CN HPI - Data of Consult Consult date: 01/22/18 Requesting Physician: Randall Phipps Primary Care Provider: Yonatan Aleman, - Consult Narrative History of present illness: Ms. Orellana is a 67 year old female with a history of recently diagnosed metastatic lung cancer, and she is also end stage renal disease on dialysis, who presented with syncopal episode and pulseless, compressions were initiated and pt was cardioverted for v fib and taken to [place] [facility]. She was diagnosed with NSTEMI and cardiology was consulted. Troponin peaked at 7.09. She did have recent liver biopsy after diagnosed with lung mass with does have metastasis to liver and bone. She recently lost her a few months back, and reportedly has been depressed, missing appointments and also dialysis sessions. She was just discharged on 01/17 after admitted with fluid overload from missed dialysis session. Upon my visit, she is up in chair. Answers some questions - not others. Asking to go back to bed. Appears very weak and frail. Requiring 10L oxygen. Denies pain/discomfort. No family present during my am visit. CC: Randall Phipps Past Med Surg Social Fam HX - Past Medical History Medical history: arthritis, cancer, CHF, COPD, coronary artery disease, dialysis , hyperlipidemia, hypertension, renal disease, thyroid disease Additional medical history: Dialysis M-W-F Psychiatric history: anxiety, depression - Past Surgical History Surgical History: coronary bypass (CABG), other (Left arm dialysis shunt) Additional surgical history: kidney stents. DIALYSIS SHUNT left arm - Social History Smoking Status: Current every day smoker Smokeless Tobacco Status: No Alcohol use: none Drug use: none - Family History Brother Family Member Ethnicity: Unknown Hx Family Cardiac Disorders: Yes (one brother passed sudden heart attack) Mother Living Status: Hx Family Cancer: Yes (lung cancer) Father Living Status: Hx Family Cancer: Yes (lung cancer) Medications and Allergies Atorvastatin [Lipitor] 40 mg PO HS 06/02/15 [History] Levothyroxine [Synthroid] 200 mcg PO QAM 06/02/15 [History] OxyCODONE Immed Rel [Roxicodone 10 MG] 10 mg PO Q6H PRN 06/02/15 [History] Docusate [Colace] 100 mg PO BID PRN 09/22/15 [History] B Complex with Vitamin C [Mary Ann-Bee with C] 1 tab PO DAILY 02/22/16 [History] Sevelamer [Renvela] 1,600 mg PO TIDWM 08/29/16 [History] Fluticasone/Salmeterol [Advair Hfa 115-21 Mcg Inhaler] 2 puff IH BID 11/14/16 [ History] Ipratropium/Albuterol Neb [Duoneb] 3 ml IH QID PRN 11/14/16 [History] Renal Vitamin [Renal Caps Softgel] 1 mg PO DAILY 11/14/16 [History] Umeclidinium Halsey [Incruse Ellipta] 62.5 mcg IH DAILY 11/12/17 [History] Albuterol Sulfate [Proair Hfa] 2 puff IH Q4-6H PRN 01/10/18 [History] Citalopram Hydrobromide [Celexa] 20 mg PO DAILY 01/10/18 [History] Folic Acid 1 mg PO DAILY 01/10/18 [History] Omeprazole [PriLOSEC] 40 mg PO DAILY 01/10/18 [History] Metoprolol [Lopressor] 25 mg PO BID #60 tablet 01/17/18 [Rx] hydrALAZINE [HydrALAZINE] 25 mg PO TID #90 tablet 01/17/18 [Rx] 3 Allergy/AdvReac Type Severity Reaction Status Date / Time ceftriaxone [From Rocephin] Allergy Hives Verified 01/09/18 21:52 levofloxacin [From Levaquin] Allergy Hives Verified 01/09/18 21:52 All systems: reviewed and no additional remarkable complaints except as stated ( generalized weakness, no appetite, shortness of breath) Palliative Care-Exam - Constitutional Vitals: Temp Pulse Resp BP Pulse Ox 98.4 F 108 22 104/75 89 01/22/18 11:23 01/22/18 11:00 01/22/18 11:00 01/22/18 10:00 01/22/18 11:00 General appearance: Present: mild distress - Head Head Exam: Present: normal inspection, normocephalic - Eye Eye exam: Present: normal appearance, PERRL - Respiratory Additional comments: Rhonchi and wheezed throughout. - Cardiovascular Cardiovascular exam: Present: tachycardia - GI/Abdominal Exam GI/Abdominal exam: Present: normal bowel sounds, soft - Extremities Exam Extremities exam: Present: normal capillary refill, normal inspection - Neurological Exam Neurological exam: Present: alert, oriented X3, strengths equal and symetr throughout - Skin Skin exam: Present: dry, pallor, warm Internal Medicine - CN: Reslt - Labs CBC & Chem 7: 01/22/18 07:00 01/22/18 06:50 Labs: Short CBC 01/22/18 Range/Units 07:00 WBC 8.6 (4.3-11.1) K/mcL Hgb 8.9 L (11.5-15.4) g/dL Hct 29.5 L (35.3-44.9) % Plt Count 33 L (140-400) K/mcL Neutrophils # 7.4 (1.6-8.9) K/mcL BMP 01/22/18 06:50 Sodium 143 Potassium 5.3 H Chloride 100 Carbon Dioxide 24 BUN 76 H Creatinine 5.21 H Glucose 92 Calcium 9.1 - ABG Interpretation ABG results: PT/INR, D-dimer PT 13.1 Seconds (9.4-12.1) H 01/19/18 03:33 - Impressions Impressions Chest X-Ray 01/20/18 09:05 IMPRESSION: 1. Interval development of multilobar airspace opacities. In the proper clinical setting, finding would be compatible with pneumonia. 2. Stable mild enlargement of the cardiac silhouette. D/ / 01/20/2018 11:21:25 Galo Holbrook MD / vidal Interpreting Provider: Galo Holbrook MD Consult Discharge Plan - Plan Referrals: Yonatan Aleman DO [Primary Care Provider] - 01/29/18 1:00 pm Palliative Quality Palliative Quality: Screen for Code Status: Yes, Screen for Goals of Care: Yes, Screen for Pain: Yes, If Pain Regimen Started, Initiate Bowel Regimen: Yes, Screen for Nausea/Vomitting: Yes Code Status: 01/18/18 22:19 Resuscitation Status: Active [RES] Routine Comment: Resuscitation Status: Full Code
[2018-01-22] MEDS ORDERED: 0.9 % Sodium Chloride 1,000 ML ONE (12:58)
[2018-01-22] MEDS: Amiodarone Premix 360 MG/200 ML BAG IVC SCH (16:32)
[2018-01-22] MEDS: MethylPREDNISolone 40 MG/ML VIAL IVP SCH ×2 (16:39→23:06)
--- NOTE | 2018-01-22 17:12 | Oncology Inp Consult Note ---
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 Discussed patients case with Dr. Fitch prior to meeting, Dr. Fitch planning on rounding with patient/family later this evening. Pathology s/p liver biopsy last consistent with metastatic stage IV small cell lung cancer. We discussed palliative intent of treatment which would include chemotherapy following patients improvement in guarded condition and likely step down from ICU. Patient has multiple acute issues complicating her road to treatment at this time including her admission following syncopal episode,V-fib with cardioversion and with admission for NSTEMI for which cardiology is recommending medical management for (heparin stopped prior to recommended 48 hours of treatment secondary to worsening thrombocytopenia). She is requiring 15L O2 and BiPAP at times to meet her respiratory needs. Patients family wish for more time to discuss options. Will plan to meet with patient and patients family tomorrow. Dr. Fitch to also round and give further recommendations. While chemotherapy typically shows great initial response in small cell lung cancer, patient has other acute issues taking precedence, necessitating her ICU admission status. Patient also has a history of non-compliance, missing multiple HD sessions, patients family state once they take her home she "never wants to leave" and it is often a fight to get her to attend appointments. Will need to speak with patient further regarding her wishes for care and treatment. If patient/patients family wish to pursue aggressive approach, would likely consider initiation of inpatient chemotherapy once patient stable enough for step down from ICU. If patient/patients family wish to purse comfort care options and hospice, this would also be reasonable goal for patient given her acute issues (NSTEMI, Pneumonia), guarded condition, multiple comorbidities and overall history of noncompliance/wish to stay home and not pursue treatments/interventions at times. Please refer to Dr. Fitch's attestation below for additional details. - Data of Consult Patient: known to practice within the last 3 years Consult date: 01/22/18 Requesting Physician: Randall Phipps Primary Care Provider: Yonatan Aleman, - Consult Narrative Reason for consult: Metastatic small cell lung cancer History of present illness: Ms. Orellana is a 67 year old female with history of multiple comorbidities including past medical history of HTN, HLD, former smoker, COPD with chronic respiratory failure on 4 L NC of oxygen, ESRD-HD M/W/F, medical non-compliance to dialysis, CHF, CAD s/p CABG, ruptured aneurysm of thoracoabdominal aorta, bilateral carotid artery stenosis, gastric ulcer/GI bleed, Hx of severe bilateral mastoiditis (seen on MRI brain 01/02/2016). Ms. Orellana was just recently discharged from the hospital with a plan to follow up with our office this week to discuss biopsy results. During her admission just last week we obtained CT imaging of the chest/abdomen/pelvis without contrast that revealed findings concerning for potential primary lung carcinoma with finding of new lobulated masslike opacity within the right middle lobe, along with findings concerning innumerable liver metastases, bone metastases and mediastinal lymphadenopathy. She underwent CT guided biopsy of liver lesion on 01/16/18. Pathology has resulted as metastatic small cell carcinoma, consistent with lung origin. Ms. Orellana presented with syncopal episode and pulseless, compressions were initiated and pt was cardioverted for v fib and taken to [facility]. She was diagnosed with NSTEMI and cardiology was consulted. Troponin peaked at 7.09. Cardiology has been consulted and recommended medical management. Past Med Surg Social Fam HX - Past Medical History Medical history: arthritis, cancer, CHF, COPD, coronary artery disease, dialysis , hyperlipidemia, hypertension, renal disease, thyroid disease Additional medical history: Dialysis M-W-F Psychiatric history: anxiety, depression - Past Surgical History Surgical History: coronary bypass (CABG), other (Left arm dialysis shunt) Additional surgical history: kidney stents. DIALYSIS SHUNT left arm - Social History Smoking Status: Current every day smoker Smokeless Tobacco Status: No Alcohol use: none Drug use: none - Family History Brother Family Member Ethnicity: Unknown Hx Family Cardiac Disorders: Yes (one brother passed sudden heart attack) Mother Living Status: Hx Family Cancer: Yes (lung cancer) Father Living Status: Hx Family Cancer: Yes (lung cancer) Medications and Allergies Atorvastatin [Lipitor] 40 mg PO HS 06/02/15 [History] Levothyroxine [Synthroid] 200 mcg PO QAM 06/02/15 [History] OxyCODONE Immed Rel [Roxicodone 10 MG] 10 mg PO Q6H PRN 06/02/15 [History] Docusate [Colace] 100 mg PO BID PRN 09/22/15 [History] B Complex with Vitamin C [Mary Ann-Bee with C] 1 tab PO DAILY 02/22/16 [History] Sevelamer [Renvela] 1,600 mg PO TIDWM 08/29/16 [History] Fluticasone/Salmeterol [Advair Hfa 115-21 Mcg Inhaler] 2 puff IH BID 11/14/16 [ History] Ipratropium/Albuterol Neb [Duoneb] 3 ml IH QID PRN 11/14/16 [History] Renal Vitamin [Renal Caps Softgel] 1 mg PO DAILY 11/14/16 [History] Umeclidinium [place] [Incruse Ellipta] 62.5 mcg IH DAILY 11/12/17 [History] Albuterol Sulfate [Proair Hfa] 2 puff IH Q4-6H PRN 01/10/18 [History] Citalopram Hydrobromide [Celexa] 20 mg PO DAILY 01/10/18 [History] Folic Acid 1 mg PO DAILY 01/10/18 [History] Omeprazole [PriLOSEC] 40 mg PO DAILY 01/10/18 [History] Metoprolol [Lopressor] 25 mg PO BID #60 tablet 01/17/18 [Rx] hydrALAZINE [HydrALAZINE] 25 mg PO TID #90 tablet 01/17/18 [Rx] 3 Allergy/AdvReac Type Severity Reaction Status Date / Time ceftriaxone [From Rocephin] Allergy Hives Verified 01/09/18 21:52 levofloxacin [From Levaquin] Allergy Hives Verified 01/09/18 21:52 Review of systems: Obtained from family and chart review Constitutional: Present: as per HPI, anorexia, fatigue, weakness, weight loss. Absent: chills, fever(s) Eyes: Absent: change in vision Nose, mouth and throat: Absent: dysphagia Cardiovascular: Present: as per HPI, syncope. Absent: chest pain Respiratory: Present: dyspnea Gastrointestinal: Present: as per HPI, nausea Additional comments: On HD for past 5 years, per patients family she still makes urine Musculoskeletal: Present: muscle weakness Integumentary: Absent: wounds Neurological: Present: as per HPI, syncope. Absent: focal weakness Psychiatric: Present: as per HPI, depression Additional comments: patient has been depressed since the passing of her , increasingly noncompliant, does not interact at times with healthcare providers, appears depressed and withdrawn Hematologic/Lymphatic: Present: as per HPI Oncology - Exam - Constitutional Vitals: Temp Pulse Resp BP Pulse Ox 97.9 F 114 21 84/50 92 01/22/18 16:25 01/22/18 16:00 01/22/18 16:25 01/22/18 16:25 01/22/18 16:00 Oncology - Results Labs: 3 01/22/18 01/22/18 01/22/18 07:00 06:50 03:25 WBC 8.6 RBC 2.78 L Hgb 8.9 L Hct 29.5 L MCV 106.1 H MCH 32.0 MCHC 30.2 L RDW 16.4 H Plt Count 33 L MPV 11.6 Immature Gran % Seg Neutrophils % 82.0 Band Neutrophils % 4.0 Lymphocytes % Monocytes % 14.0 Eosinophils % Basophils % Metamyelocytes % Myelocytes % Neutrophils # 7.4 Lymphocytes # Monocytes # 1.2 Eosinophils # Basophils # Nucleated RBCs/100 WBC Platelet Estimate Decreased L Immature Plt Fraction 6.5 H Anisocytosis 1+ A Microcytosis PT INR APTT Sodium 143 Potassium 5.3 H Chloride 100 Carbon Dioxide 24 BUN 76 H Creatinine 5.21 H Est GFR ( Amer) 10 L Est GFR (Non-Af Amer) 8 L BUN/Creatinine Ratio 15 Glucose 92 POC Glucose Calculated Osmolality 318 H Lactic Acid Calcium 9.1 Magnesium Troponin I Random Vancomycin 12 A. baumannii (PCR) Jennifer albicans (PCR) C. glabrata (PCR) C. krusei (PCR) C. parapsilosis (PCR) C. tropicalis (PCR) Enterobacteriac sp PCR E. cloacae complex PCR Enterococcus sp PCR E. coli (PCR) H. influenzae (PCR) Klebsiella oxytoca PCR Klebsiella pneumoniae List. monocytogenes PCR N. meningitidis (PCR) Proteus species (PCR) Serratia marcescens PCR Staphylococcus sp PCR Staph aureus (PCR) mecA-Methicil Res Gene Streptococcus sp PCR Group A Strep DNA Group B Strep (PCR) Strep pneumoniae (PCR) P. aeruginosa (PCR) Kelsey/B-Vanco Res Genes KPC (blaKPC) Detect PCR Blood Type Antibody Screen MTS Gel Crossmatch 3 01/21/18 01/21/18 01/21/18 07:45 07:45 06:47 WBC RBC Hgb Hct MCV MCH MCHC RDW Plt Count MPV Immature Gran % Seg Neutrophils % Band Neutrophils % Lymphocytes % Monocytes % Eosinophils % Basophils % Metamyelocytes % Myelocytes % Neutrophils # Lymphocytes # Monocytes # Eosinophils # Basophils # Nucleated RBCs/100 WBC Platelet Estimate Immature Plt Fraction Anisocytosis Microcytosis PT INR APTT Sodium Potassium Chloride Carbon Dioxide BUN Creatinine Est GFR ( Amer) Est GFR (Non-Af Amer) BUN/Creatinine Ratio Glucose POC Glucose 116 H Calculated Osmolality Lactic Acid 1.6 Calcium Magnesium Troponin I Random Vancomycin A. baumannii (PCR) Not Detected Jennifer albicans (PCR) Not Detected C. glabrata (PCR) Not Detected C. krusei (PCR) Not Detected C. parapsilosis (PCR) Not Detected C. tropicalis (PCR) Not Detected Enterobacteriac sp PCR DETECTED A E. cloacae complex PCR Not Detected Enterococcus sp PCR DETECTED A E. coli (PCR) DETECTED A H. influenzae (PCR) Not Detected Klebsiella oxytoca PCR Not Detected Klebsiella pneumoniae Not Detected List. monocytogenes PCR Not Detected N. meningitidis (PCR) Not Detected Proteus species (PCR) Not Detected Serratia marcescens PCR Not Detected Staphylococcus sp PCR Not Detected Staph aureus (PCR) Not Detected mecA-Methicil Res Gene Not Detected Streptococcus sp PCR Not Detected Group A Strep DNA Not Detected Group B Strep (PCR) Not Detected Strep pneumoniae (PCR) Not Detected P. aeruginosa (PCR) Not Detected Kelsey/B-Vanco Res Genes Not Detected KPC (blaKPC) Detect PCR Not Detected Blood Type Antibody Screen MTS Gel Crossmatch 3 01/21/18 01/21/18 01/20/18 03:26 03:26 19:30 WBC 7.3 D RBC 2.97 L Hgb 9.5 L 9.8 L Hct 30.8 L 31.6 L MCV 103.7 H MCH 32.0 MCHC 30.8 L RDW 16.3 H Plt Count 33 L MPV 11.0 Immature Gran % Seg Neutrophils % 62.0 Band Neutrophils % 24.0 H Lymphocytes % 4.0 Monocytes % 4.0 Eosinophils % Basophils % Metamyelocytes % 4.0 H Myelocytes % 2.0 H Neutrophils # 6.3 Lymphocytes # 0.3 L Monocytes # 0.3 Eosinophils # Basophils # Nucleated RBCs/100 WBC 0.3 H Platelet Estimate Decreased L Immature Plt Fraction 6.0 Anisocytosis Microcytosis Present A PT INR APTT Sodium 140 Potassium 4.6 Chloride 98 Carbon Dioxide 29 BUN 49 H Creatinine 4.00 H Est GFR ( Amer) 14 L Est GFR (Non-Af Amer) 11 L BUN/Creatinine Ratio 12 Glucose 120 H POC Glucose Calculated Osmolality 304 H Lactic Acid Calcium 9.3 Magnesium 1.8 Troponin I Random Vancomycin A. baumannii (PCR) Jennifer albicans (PCR) C. glabrata (PCR) C. krusei (PCR) C. parapsilosis (PCR) C. tropicalis (PCR) Enterobacteriac sp PCR E. cloacae complex PCR Enterococcus sp PCR E. coli (PCR) H. influenzae (PCR) Klebsiella oxytoca PCR Klebsiella pneumoniae List. monocytogenes PCR N. meningitidis (PCR) Proteus species (PCR) Serratia marcescens PCR Staphylococcus sp PCR Staph aureus (PCR) mecA-Methicil Res Gene Streptococcus sp PCR Group A Strep DNA Group B Strep (PCR) Strep pneumoniae (PCR) P. aeruginosa (PCR) Kelsey/B-Vanco Res Genes KPC (blaKPC) Detect PCR Blood Type Antibody Screen MTS Gel Crossmatch 3 01/20/18 01/20/18 01/20/18 11:30 11:21 10:20 WBC RBC Hgb 9.4 L Hct 30.5 L MCV MCH MCHC RDW Plt Count MPV Immature Gran % Seg Neutrophils % Band Neutrophils % Lymphocytes % Monocytes % Eosinophils % Basophils % Metamyelocytes % Myelocytes % Neutrophils # Lymphocytes # Monocytes # Eosinophils # Basophils # Nucleated RBCs/100 WBC Platelet Estimate Immature Plt Fraction Anisocytosis Microcytosis PT INR APTT 35.1 D Sodium Potassium Chloride Carbon Dioxide BUN Creatinine Est GFR ( Amer) Est GFR (Non-Af Amer) BUN/Creatinine Ratio Glucose POC Glucose Calculated Osmolality Lactic Acid Calcium Magnesium 1.7 Troponin I Random Vancomycin A. baumannii (PCR) Jennifer albicans (PCR) C. glabrata (PCR) C. krusei (PCR) C. parapsilosis (PCR) C. tropicalis (PCR) Enterobacteriac sp PCR E. cloacae complex PCR Enterococcus sp PCR E. coli (PCR) H. influenzae (PCR) Klebsiella oxytoca PCR Klebsiella pneumoniae List. monocytogenes PCR N. meningitidis (PCR) Proteus species (PCR) Serratia marcescens PCR Staphylococcus sp PCR Staph aureus (PCR) mecA-Methicil Res Gene Streptococcus sp PCR Group A Strep DNA Group B Strep (PCR) Strep pneumoniae (PCR) P. aeruginosa (PCR) Kelsey/B-Vanco Res Genes KPC (blaKPC) Detect PCR Blood Type Antibody Screen MTS Gel Crossmatch 3 01/20/18 01/20/18 01/20/18 08:44 08:44 03:24 WBC 4.4 RBC 2.85 L Hgb 9.1 L Hct 29.1 L MCV 102.1 H MCH 31.9 MCHC 31.3 L RDW 16.1 H Plt Count 38 L MPV 11.3 Immature Gran % Seg Neutrophils % 77.0 Band Neutrophils % 14.0 H Lymphocytes % 4.0 Monocytes % 3.0 Eosinophils % Basophils % Metamyelocytes % 2.0 H Myelocytes % Neutrophils # 4.0 Lymphocytes # 0.2 L Monocytes # 0.1 Eosinophils # Basophils # Nucleated RBCs/100 WBC 0.5 H Platelet Estimate Decreased L Immature Plt Fraction 7.0 H Anisocytosis 1+ A Microcytosis PT INR APTT 74.0 H Sodium Potassium Chloride Carbon Dioxide BUN Creatinine Est GFR ( Amer) Est GFR (Non-Af Amer) BUN/Creatinine Ratio Glucose POC Glucose Calculated Osmolality Lactic Acid Calcium Magnesium Troponin I Random Vancomycin A. baumannii (PCR) Jennifer albicans (PCR) C. glabrata (PCR) C. krusei (PCR) C. parapsilosis (PCR) C. tropicalis (PCR) Enterobacteriac sp PCR E. cloacae complex PCR Enterococcus sp PCR E. coli (PCR) H. influenzae (PCR) Klebsiella oxytoca PCR Klebsiella pneumoniae List. monocytogenes PCR N. meningitidis (PCR) Proteus species (PCR) Serratia marcescens PCR Staphylococcus sp PCR Staph aureus (PCR) mecA-Methicil Res Gene Streptococcus sp PCR Group A Strep DNA Group B Strep (PCR) Strep pneumoniae (PCR) P. aeruginosa (PCR) Kelsey/B-Vanco Res Genes KPC (blaKPC) Detect PCR Blood Type A NEGATIVE Antibody Screen NEGATIVE MTS Gel Crossmatch See Detail 3 01/20/18 01/20/18 01/20/18 03:24 03:24 01:42 WBC 4.0 L RBC 2.96 L Hgb 9.5 L 9.7 L Hct 30.6 L 30.6 L MCV 103.4 H MCH 32.1 MCHC 31.0 L RDW 15.9 H Plt Count 35 L MPV 10.9 Immature Gran % 1.3 Seg Neutrophils % 89.2 Band Neutrophils % Lymphocytes % 4.8 Monocytes % 4.1 Eosinophils % 0.3 Basophils % 0.3 Metamyelocytes % Myelocytes % Neutrophils # 3.6 Lymphocytes # 0.2 L Monocytes # 0.2 Eosinophils # 0.0 Basophils # 0.0 Nucleated RBCs/100 WBC 0.5 H Platelet Estimate Decreased L Immature Plt Fraction 4.9 Anisocytosis Microcytosis PT INR APTT Sodium 137 Potassium 4.3 Chloride 98 Carbon Dioxide 29 BUN 30 H Creatinine 2.74 H Est GFR ( Amer) 21 L Est GFR (Non-Af Amer) 17 L BUN/Creatinine Ratio 11 Glucose 106 H POC Glucose Calculated Osmolality 291 Lactic Acid Calcium 8.9 Magnesium Troponin I Random Vancomycin A. baumannii (PCR) Jennifer albicans (PCR) C. glabrata (PCR) C. krusei (PCR) C. parapsilosis (PCR) C. tropicalis (PCR) Enterobacteriac sp PCR E. cloacae complex PCR Enterococcus sp PCR E. coli (PCR) H. influenzae (PCR) Klebsiella oxytoca PCR Klebsiella pneumoniae List. monocytogenes PCR N. meningitidis (PCR) Proteus species (PCR) Serratia marcescens PCR Staphylococcus sp PCR Staph aureus (PCR) mecA-Methicil Res Gene Streptococcus sp PCR Group A Strep DNA Group B Strep (PCR) Strep pneumoniae (PCR) P. aeruginosa (PCR) Kelsey/B-Vanco Res Genes KPC (blaKPC) Detect PCR Blood Type Antibody Screen MTS Gel Crossmatch 3 01/20/18 01/19/18 01/19/18 01:30 19:28 19:28 WBC RBC Hgb 9.8 L Hct 31.3 L MCV MCH MCHC RDW Plt Count MPV Immature Gran % Seg Neutrophils % Band Neutrophils % Lymphocytes % Monocytes % Eosinophils % Basophils % Metamyelocytes % Myelocytes % Neutrophils # Lymphocytes # Monocytes # Eosinophils # Basophils # Nucleated RBCs/100 WBC Platelet Estimate Immature Plt Fraction Anisocytosis Microcytosis PT INR APTT 56.2 H Sodium Potassium Chloride Carbon Dioxide BUN Creatinine Est GFR ( Amer) Est GFR (Non-Af Amer) BUN/Creatinine Ratio Glucose POC Glucose Calculated Osmolality Lactic Acid Calcium Magnesium Troponin I 3.72 H* Random Vancomycin A. baumannii (PCR) Jennifer albicans (PCR) C. glabrata (PCR) C. krusei (PCR) C. parapsilosis (PCR) C. tropicalis (PCR) Enterobacteriac sp PCR E. cloacae complex PCR Enterococcus sp PCR E. coli (PCR) H. influenzae (PCR) Klebsiella oxytoca PCR Klebsiella pneumoniae List. monocytogenes PCR N. meningitidis (PCR) Proteus species (PCR) Serratia marcescens PCR Staphylococcus sp PCR Staph aureus (PCR) mecA-Methicil Res Gene Streptococcus sp PCR Group A Strep DNA Group B Strep (PCR) Strep pneumoniae (PCR) P. aeruginosa (PCR) Kelsey/B-Vanco Res Genes KPC (blaKPC) Detect PCR Blood Type Antibody Screen MTS Gel Crossmatch 3 01/19/18 01/19/18 01/19/18 19:28 10:20 03:33 WBC RBC Hgb Hct MCV MCH MCHC RDW Plt Count MPV Immature Gran % Seg Neutrophils % Band Neutrophils % Lymphocytes % Monocytes % Eosinophils % Basophils % Metamyelocytes % Myelocytes % Neutrophils # Lymphocytes # Monocytes # Eosinophils # Basophils # Nucleated RBCs/100 WBC Platelet Estimate Immature Plt Fraction Anisocytosis Microcytosis PT 13.1 H INR 1.2 APTT 58.0 H D 21.7 L Sodium Potassium Chloride Carbon Dioxide BUN Creatinine Est GFR ( Amer) Est GFR (Non-Af Amer) BUN/Creatinine Ratio Glucose POC Glucose Calculated Osmolality Lactic Acid Calcium Magnesium Troponin I 4.40 H* Random Vancomycin A. baumannii (PCR) Jennifer albicans (PCR) C. glabrata (PCR) C. krusei (PCR) C. parapsilosis (PCR) C. tropicalis (PCR) Enterobacteriac sp PCR E. cloacae complex PCR Enterococcus sp PCR E. coli (PCR) H. influenzae (PCR) Klebsiella oxytoca PCR Klebsiella pneumoniae List. monocytogenes PCR N. meningitidis (PCR) Proteus species (PCR) Serratia marcescens PCR Staphylococcus sp PCR Staph aureus (PCR) mecA-Methicil Res Gene Streptococcus sp PCR Group A Strep DNA Group B Strep (PCR) Strep pneumoniae (PCR) P. aeruginosa (PCR) Kelsey/B-Vanco Res Genes KPC (blaKPC) Detect PCR Blood Type Antibody Screen MTS Gel Crossmatch 3 01/19/18 01/19/18 01/19/18 03:33 03:33 01:18 WBC 4.9 RBC 3.12 L Hgb 10.1 L Hct 32.4 L MCV 103.8 H MCH 32.4 MCHC 31.2 L RDW 15.9 H Plt Count 44 L MPV 10.9 Immature Gran % 0.8 Seg Neutrophils % 88.8 Band Neutrophils % Lymphocytes % 3.5 Monocytes % 6.7 Eosinophils % 0.0 Basophils % 0.2 Metamyelocytes % Myelocytes % Neutrophils # 4.4 Lymphocytes # 0.2 L Monocytes # 0.3 Eosinophils # 0.0 Basophils # 0.0 Nucleated RBCs/100 WBC Platelet Estimate Decreased L Immature Plt Fraction 3.9 Anisocytosis Microcytosis PT INR APTT Sodium 143 Potassium 4.1 Chloride 101 Carbon Dioxide 27 BUN 59 H Creatinine 4.64 H Est GFR ( Amer) 11 L Est GFR (Non-Af Amer) 9 L BUN/Creatinine Ratio 13 Glucose 103 POC Glucose Calculated Osmolality 313 H Lactic Acid Calcium 9.0 Magnesium Troponin I 7.09 H* Random Vancomycin A. baumannii (PCR) Jennifer albicans (PCR) C. glabrata (PCR) C. krusei (PCR) C. parapsilosis (PCR) C. tropicalis (PCR) Enterobacteriac sp PCR E. cloacae complex PCR Enterococcus sp PCR E. coli (PCR) H. influenzae (PCR) Klebsiella oxytoca PCR Klebsiella pneumoniae List. monocytogenes PCR N. meningitidis (PCR) Proteus species (PCR) Serratia marcescens PCR Staphylococcus sp PCR Staph aureus (PCR) mecA-Methicil Res Gene Streptococcus sp PCR Group A Strep DNA Group B Strep (PCR) Strep pneumoniae (PCR) P. aeruginosa (PCR) Kelsey/B-Vanco Res Genes KPC (blaKPC) Detect PCR Blood Type Antibody Screen MTS Gel Crossmatch Consult Discharge Plan - Plan Referrals: Yonatan Aleman DO [Primary Care Provider] - 01/29/18 1:00 pm <Laureen Armenta - Last Filed: 01/23/18 15:22> Date of Encounter: 01/23/18 Assessment and Plan (1) Small cell lung carcinoma Status: Acute - Data of Consult Requesting Physician: Randall Phipps Primary Care Provider: Yonatan Aleman, - Consult Narrative History of present illness: Patient was seen in ICU bedside, appeared short of breath with moderate distress not able to follow through conversation. She reported that she was in pain. Chronic renal insufficiency with worsening due to malignancy, infection, on hemodialysis support, heart disease, currently sepsis with pancytopenia, poor compliance not a candidate for palliative chemotherapy. If clinical status improves, hospice and palliative care should be offered rather than systemic chemotherapy. I have discussed her clinical status and plan of care with Kaylen Stubbs CNP who communicated further with others yesterday at family meeting. Oncology - Exam - Constitutional Vitals: Temp Pulse Resp BP Pulse Ox 97.6 F 86 13 103/55 96 01/23/18 11:15 01/23/18 13:00 01/23/18 13:00 01/23/18 13:00 01/23/18 13:00 General appearance: severe distress - Head Head exam: Present: atraumatic, normal inspection - Eye Eye exam: Present: sclera anicteric - ENT ENT exam: Present: mucous membranes moist - Neck Neck exam: Present: normal inspection - Respiratory Respiratory exam: Present: CTAB, wheezes - Cardiovascular Cardiovascular exam: Present: +S1, +S2 - GI/Abdominal GI/Abdominal exam: Present: normal bowel sounds, soft - Extremities Exam Extremities exam: Present: normal inspection - Neurological Exam Additional comments: drowsy mental status unable to be examined - Skin Skin exam: Present: normal color Oncology - Results Labs: 3 01/23/18 01/23/18 01/23/18 08:55 08:38 08:10 WBC 6.1 RBC 2.06 L Hgb 6.7 L D Hct 22.1 L MCV 107.3 H MCH 32.5 MCHC 30.3 L RDW 16.4 H Plt Count 17 L* MPV 11.5 Immature Gran % 1.2 Seg Neutrophils % 94.5 Band Neutrophils % Lymphocytes % 1.5 Monocytes % 2.8 Eosinophils % 0.0 Basophils % 0.0 Metamyelocytes % Myelocytes % Neutrophils # 5.8 Lymphocytes # 0.1 L Monocytes # 0.2 Eosinophils # 0.0 Basophils # 0.0 Nucleated RBCs/100 WBC Platelet Estimate Marked Decrease L Immature Plt Fraction 6.3 H Poikilocytosis 1+ A Anisocytosis Microcytosis Spherocytes 1+ A Helmet Cells Present A PT INR APTT Sodium 144 Potassium 5.0 Chloride 101 Carbon Dioxide 24 BUN 73 H Creatinine 4.75 H Est GFR ( Amer) 11 L Est GFR (Non-Af Amer) 9 L BUN/Creatinine Ratio 15 Glucose 113 H POC Glucose Calculated Osmolality 320 H Lactic Acid Calcium 8.8 Magnesium Troponin I Random Vancomycin A. baumannii (PCR) Jennifer albicans (PCR) C. glabrata (PCR) C. krusei (PCR) C. parapsilosis (PCR) C. tropicalis (PCR) Enterobacteriac sp PCR E. cloacae complex PCR Enterococcus sp PCR E. coli (PCR) H. influenzae (PCR) Klebsiella oxytoca PCR Klebsiella pneumoniae List. monocytogenes PCR N. meningitidis (PCR) Proteus species (PCR) Serratia marcescens PCR Staphylococcus sp PCR Staph aureus (PCR) mecA-Methicil Res Gene Streptococcus sp PCR Group A Strep DNA Group B Strep (PCR) Strep pneumoniae (PCR) P. aeruginosa (PCR) Kelsey/B-Vanco Res Genes KPC (blaKPC) Detect PCR Specimen Rejected Contaminated Blood Type Antibody Screen MTS Gel Crossmatch 3 01/22/18 01/22/18 01/22/18 07:00 06:50 03:25 WBC 8.6 RBC 2.78 L Hgb 8.9 L Hct 29.5 L MCV 106.1 H MCH 32.0 MCHC 30.2 L RDW 16.4 H Plt Count 33 L MPV 11.6 Immature Gran % Seg Neutrophils % 82.0 Band Neutrophils % 4.0 Lymphocytes % Monocytes % 14.0 Eosinophils % Basophils % Metamyelocytes % Myelocytes % Neutrophils # 7.4 Lymphocytes # Monocytes # 1.2 Eosinophils # Basophils # Nucleated RBCs/100 WBC Platelet Estimate Decreased L Immature Plt Fraction 6.5 H Poikilocytosis Anisocytosis 1+ A Microcytosis Spherocytes Helmet Cells PT INR APTT Sodium 143 Potassium 5.3 H Chloride 100 Carbon Dioxide 24 BUN 76 H Creatinine 5.21 H Est GFR ( Amer) 10 L Est GFR (Non-Af Amer) 8 L BUN/Creatinine Ratio 15 Glucose 92 POC Glucose Calculated Osmolality 318 H Lactic Acid Calcium 9.1 Magnesium Troponin I Random Vancomycin 12 A. baumannii (PCR) Jennifer albicans (PCR) C. glabrata (PCR) C. krusei (PCR) C. parapsilosis (PCR) C. tropicalis (PCR) Enterobacteriac sp PCR E. cloacae complex PCR Enterococcus sp PCR E. coli (PCR) H. influenzae (PCR) Klebsiella oxytoca PCR Klebsiella pneumoniae List. monocytogenes PCR N. meningitidis (PCR) Proteus species (PCR) Serratia marcescens PCR Staphylococcus sp PCR Staph aureus (PCR) mecA-Methicil Res Gene Streptococcus sp PCR Group A Strep DNA Group B Strep (PCR) Strep pneumoniae (PCR) P. aeruginosa (PCR) Kelsey/B-Vanco Res Genes KPC (blaKPC) Detect PCR Specimen Rejected Blood Type Antibody Screen MTS Gel Crossmatch 3 01/21/18 01/21/18 01/21/18 07:45 07:45 06:47 WBC RBC Hgb Hct MCV MCH MCHC RDW Plt Count MPV Immature Gran % Seg Neutrophils % Band Neutrophils % Lymphocytes % Monocytes % Eosinophils % Basophils % Metamyelocytes % Myelocytes % Neutrophils # Lymphocytes # Monocytes # Eosinophils # Basophils # Nucleated RBCs/100 WBC Platelet Estimate Immature Plt Fraction Poikilocytosis Anisocytosis Microcytosis Spherocytes Helmet Cells PT INR APTT Sodium Potassium Chloride Carbon Dioxide BUN Creatinine Est GFR ( Amer) Est GFR (Non-Af Amer) BUN/Creatinine Ratio Glucose POC Glucose 116 H Calculated Osmolality Lactic Acid 1.6 Calcium Magnesium Troponin I Random Vancomycin A. baumannii (PCR) Not Detected Jennifer albicans (PCR) Not Detected C. glabrata (PCR) Not Detected C. krusei (PCR) Not Detected C. parapsilosis (PCR) Not Detected C. tropicalis (PCR) Not Detected Enterobacteriac sp PCR DETECTED A E. cloacae complex PCR Not Detected Enterococcus sp PCR DETECTED A E. coli (PCR) DETECTED A H. influenzae (PCR) Not Detected Klebsiella oxytoca PCR Not Detected Klebsiella pneumoniae Not Detected List. monocytogenes PCR Not Detected N. meningitidis (PCR) Not Detected Proteus species (PCR) Not Detected Serratia marcescens PCR Not Detected Staphylococcus sp PCR Not Detected Staph aureus (PCR) Not Detected mecA-Methicil Res Gene Not Detected Streptococcus sp PCR Not Detected Group A Strep DNA Not Detected Group B Strep (PCR) Not Detected Strep pneumoniae (PCR) Not Detected P. aeruginosa (PCR) Not Detected Kelsey/B-Vanco Res Genes Not Detected KPC (blaKPC) Detect PCR Not Detected Specimen Rejected Blood Type Antibody Screen MTS Gel Crossmatch 3 01/21/18 01/21/18 01/20/18 03:26 03:26 19:30 WBC 7.3 D RBC 2.97 L Hgb 9.5 L 9.8 L Hct 30.8 L 31.6 L MCV 103.7 H MCH 32.0 MCHC 30.8 L RDW 16.3 H Plt Count 33 L MPV 11.0 Immature Gran % Seg Neutrophils % 62.0 Band Neutrophils % 24.0 H Lymphocytes % 4.0 Monocytes % 4.0 Eosinophils % Basophils % Metamyelocytes % 4.0 H Myelocytes % 2.0 H Neutrophils # 6.3 Lymphocytes # 0.3 L Monocytes # 0.3 Eosinophils # Basophils # Nucleated RBCs/100 WBC 0.3 H Platelet Estimate Decreased L Immature Plt Fraction 6.0 Poikilocytosis Anisocytosis Microcytosis Present A Spherocytes Helmet Cells PT INR APTT Sodium 140 Potassium 4.6 Chloride 98 Carbon Dioxide 29 BUN 49 H Creatinine 4.00 H Est GFR ( Amer) 14 L Est GFR (Non-Af Amer) 11 L BUN/Creatinine Ratio 12 Glucose 120 H POC Glucose Calculated Osmolality 304 H Lactic Acid Calcium 9.3 Magnesium 1.8 Troponin I Random Vancomycin A. baumannii (PCR) Jennifer albicans (PCR) C. glabrata (PCR) C. krusei (PCR) C. parapsilosis (PCR) C. tropicalis (PCR) Enterobacteriac sp PCR E. cloacae complex PCR Enterococcus sp PCR E. coli (PCR) H. influenzae (PCR) Klebsiella oxytoca PCR Klebsiella pneumoniae List. monocytogenes PCR N. meningitidis (PCR) Proteus species (PCR) Serratia marcescens PCR Staphylococcus sp PCR Staph aureus (PCR) mecA-Methicil Res Gene Streptococcus sp PCR Group A Strep DNA Group B Strep (PCR) Strep pneumoniae (PCR) P. aeruginosa (PCR) Kelsey/B-Vanco Res Genes KPC (blaKPC) Detect PCR Specimen Rejected Blood Type Antibody Screen MTS Gel Crossmatch 3 01/20/18 01/20/18 01/20/18 11:30 11:21 10:20 WBC RBC Hgb 9.4 L Hct 30.5 L MCV MCH MCHC RDW Plt Count MPV Immature Gran % Seg Neutrophils % Band Neutrophils % Lymphocytes % Monocytes % Eosinophils % Basophils % Metamyelocytes % Myelocytes % Neutrophils # Lymphocytes # Monocytes # Eosinophils # Basophils # Nucleated RBCs/100 WBC Platelet Estimate Immature Plt Fraction Poikilocytosis Anisocytosis Microcytosis Spherocytes Helmet Cells PT INR APTT 35.1 D Sodium Potassium Chloride Carbon Dioxide BUN Creatinine Est GFR ( Amer) Est GFR (Non-Af Amer) BUN/Creatinine Ratio Glucose POC Glucose Calculated Osmolality Lactic Acid Calcium Magnesium 1.7 Troponin I Random Vancomycin A. baumannii (PCR) Jennifer albicans (PCR) C. glabrata (PCR) C. krusei (PCR) C. parapsilosis (PCR) C. tropicalis (PCR) Enterobacteriac sp PCR E. cloacae complex PCR Enterococcus sp PCR E. coli (PCR) H. influenzae (PCR) Klebsiella oxytoca PCR Klebsiella pneumoniae List. monocytogenes PCR N. meningitidis (PCR) Proteus species (PCR) Serratia marcescens PCR Staphylococcus sp PCR Staph aureus (PCR) mecA-Methicil Res Gene Streptococcus sp PCR Group A Strep DNA Group B Strep (PCR) Strep pneumoniae (PCR) P. aeruginosa (PCR) Kelsey/B-Vanco Res Genes KPC (blaKPC) Detect PCR Specimen Rejected Blood Type Antibody Screen MTS Gel Crossmatch 3 01/20/18 01/20/18 01/20/18 08:44 08:44 03:24 WBC 4.4 RBC 2.85 L Hgb 9.1 L Hct 29.1 L MCV 102.1 H MCH 31.9 MCHC 31.3 L RDW 16.1 H Plt Count 38 L MPV 11.3 Immature Gran % Seg Neutrophils % 77.0 Band Neutrophils % 14.0 H Lymphocytes % 4.0 Monocytes % 3.0 Eosinophils % Basophils % Metamyelocytes % 2.0 H Myelocytes % Neutrophils # 4.0 Lymphocytes # 0.2 L Monocytes # 0.1 Eosinophils # Basophils # Nucleated RBCs/100 WBC 0.5 H Platelet Estimate Decreased L Immature Plt Fraction 7.0 H Poikilocytosis Anisocytosis 1+ A Microcytosis Spherocytes Helmet Cells PT INR APTT 74.0 H Sodium Potassium Chloride Carbon Dioxide BUN Creatinine Est GFR ( Amer) Est GFR (Non-Af Amer) BUN/Creatinine Ratio Glucose POC Glucose Calculated Osmolality Lactic Acid Calcium Magnesium Troponin I Random Vancomycin A. baumannii (PCR) Jennifer albicans (PCR) C. glabrata (PCR) C. krusei (PCR) C. parapsilosis (PCR) C. tropicalis (PCR) Enterobacteriac sp PCR E. cloacae complex PCR Enterococcus sp PCR E. coli (PCR) H. influenzae (PCR) Klebsiella oxytoca PCR Klebsiella pneumoniae List. monocytogenes PCR N. meningitidis (PCR) Proteus species (PCR) Serratia marcescens PCR Staphylococcus sp PCR Staph aureus (PCR) mecA-Methicil Res Gene Streptococcus sp PCR Group A Strep DNA Group B Strep (PCR) Strep pneumoniae (PCR) P. aeruginosa (PCR) Kelsey/B-Vanco Res Genes KPC (blaKPC) Detect PCR Specimen Rejected Blood Type A NEGATIVE Antibody Screen NEGATIVE MTS Gel Crossmatch See Detail 3 01/20/18 01/20/18 01/20/18 03:24 03:24 01:42 WBC 4.0 L RBC 2.96 L Hgb 9.5 L 9.7 L Hct 30.6 L 30.6 L MCV 103.4 H MCH 32.1 MCHC 31.0 L RDW 15.9 H Plt Count 35 L MPV 10.9 Immature Gran % 1.3 Seg Neutrophils % 89.2 Band Neutrophils % Lymphocytes % 4.8 Monocytes % 4.1 Eosinophils % 0.3 Basophils % 0.3 Metamyelocytes % Myelocytes % Neutrophils # 3.6 Lymphocytes # 0.2 L Monocytes # 0.2 Eosinophils # 0.0 Basophils # 0.0 Nucleated RBCs/100 WBC 0.5 H Platelet Estimate Decreased L Immature Plt Fraction 4.9 Poikilocytosis Anisocytosis Microcytosis Spherocytes Helmet Cells PT INR APTT Sodium 137 Potassium 4.3 Chloride 98 Carbon Dioxide 29 BUN 30 H Creatinine 2.74 H Est GFR ( Amer) 21 L Est GFR (Non-Af Amer) 17 L BUN/Creatinine Ratio 11 Glucose 106 H POC Glucose Calculated Osmolality 291 Lactic Acid Calcium 8.9 Magnesium Troponin I Random Vancomycin A. baumannii (PCR) Jennifer albicans (PCR) C. glabrata (PCR) C. krusei (PCR) C. parapsilosis (PCR) C. tropicalis (PCR) Enterobacteriac sp PCR E. cloacae complex PCR Enterococcus sp PCR E. coli (PCR) H. influenzae (PCR) Klebsiella oxytoca PCR Klebsiella pneumoniae List. monocytogenes PCR N. meningitidis (PCR) Proteus species (PCR) Serratia marcescens PCR Staphylococcus sp PCR Staph aureus (PCR) mecA-Methicil Res Gene Streptococcus sp PCR Group A Strep DNA Group B Strep (PCR) Strep pneumoniae (PCR) P. aeruginosa (PCR) Kelsey/B-Vanco Res Genes KPC (blaKPC) Detect PCR Specimen Rejected Blood Type Antibody Screen MTS Gel Crossmatch 3 01/20/18 01/19/18 01/19/18 01:30 19:28 19:28 WBC RBC Hgb 9.8 L Hct 31.3 L MCV MCH MCHC RDW Plt Count MPV Immature Gran % Seg Neutrophils % Band Neutrophils % Lymphocytes % Monocytes % Eosinophils % Basophils % Metamyelocytes % Myelocytes % Neutrophils # Lymphocytes # Monocytes # Eosinophils # Basophils # Nucleated RBCs/100 WBC Platelet Estimate Immature Plt Fraction Poikilocytosis Anisocytosis Microcytosis Spherocytes Helmet Cells PT INR APTT 56.2 H Sodium Potassium Chloride Carbon Dioxide BUN Creatinine Est GFR ( Amer) Est GFR (Non-Af Amer) BUN/Creatinine Ratio Glucose POC Glucose Calculated Osmolality Lactic Acid Calcium Magnesium Troponin I 3.72 H* Random Vancomycin A. baumannii (PCR) Jennifer albicans (PCR) C. glabrata (PCR) C. krusei (PCR) C. parapsilosis (PCR) C. tropicalis (PCR) Enterobacteriac sp PCR E. cloacae complex PCR Enterococcus sp PCR E. coli (PCR) H. influenzae (PCR) Klebsiella oxytoca PCR Klebsiella pneumoniae List. monocytogenes PCR N. meningitidis (PCR) Proteus species (PCR) Serratia marcescens PCR Staphylococcus sp PCR Staph aureus (PCR) mecA-Methicil Res Gene Streptococcus sp PCR Group A Strep DNA Group B Strep (PCR) Strep pneumoniae (PCR) P. aeruginosa (PCR) Kelsey/B-Vanco Res Genes KPC (blaKPC) Detect PCR Specimen Rejected Blood Type Antibody Screen MTS Gel Crossmatch 3 01/19/18 01/19/18 01/19/18 19:28 10:20 03:33 WBC RBC Hgb Hct MCV MCH MCHC RDW Plt Count MPV Immature Gran % Seg Neutrophils % Band Neutrophils % Lymphocytes % Monocytes % Eosinophils % Basophils % Metamyelocytes % Myelocytes % Neutrophils # Lymphocytes # Monocytes # Eosinophils # Basophils # Nucleated RBCs/100 WBC Platelet Estimate Immature Plt Fraction Poikilocytosis Anisocytosis Microcytosis Spherocytes Helmet Cells PT 13.1 H INR 1.2 APTT 58.0 H D 21.7 L Sodium Potassium Chloride Carbon Dioxide BUN Creatinine Est GFR ( Amer) Est GFR (Non-Af Amer) BUN/Creatinine Ratio Glucose POC Glucose Calculated Osmolality Lactic Acid Calcium Magnesium Troponin I 4.40 H* Random Vancomycin A. baumannii (PCR) Jennifer albicans (PCR) C. glabrata (PCR) C. krusei (PCR) C. parapsilosis (PCR) C. tropicalis (PCR) Enterobacteriac sp PCR E. cloacae complex PCR Enterococcus sp PCR E. coli (PCR) H. influenzae (PCR) Klebsiella oxytoca PCR Klebsiella pneumoniae List. monocytogenes PCR N. meningitidis (PCR) Proteus species (PCR) Serratia marcescens PCR Staphylococcus sp PCR Staph aureus (PCR) mecA-Methicil Res Gene Streptococcus sp PCR Group A Strep DNA Group B Strep (PCR) Strep pneumoniae (PCR) P. aeruginosa (PCR) Kelsey/B-Vanco Res Genes KPC (blaKPC) Detect PCR Specimen Rejected Blood Type Antibody Screen MTS Gel Crossmatch 3 01/19/18 01/19/18 01/19/18 03:33 03:33 01:18 WBC 4.9 RBC 3.12 L Hgb 10.1 L Hct 32.4 L MCV 103.8 H MCH 32.4 MCHC 31.2 L RDW 15.9 H Plt Count 44 L MPV 10.9 Immature Gran % 0.8 Seg Neutrophils % 88.8 Band Neutrophils % Lymphocytes % 3.5 Monocytes % 6.7 Eosinophils % 0.0 Basophils % 0.2 Metamyelocytes % Myelocytes % Neutrophils # 4.4 Lymphocytes # 0.2 L Monocytes # 0.3 Eosinophils # 0.0 Basophils # 0.0 Nucleated RBCs/100 WBC Platelet Estimate Decreased L Immature Plt Fraction 3.9 Poikilocytosis Anisocytosis Microcytosis Spherocytes Helmet Cells PT INR APTT Sodium 143 Potassium 4.1 Chloride 101 Carbon Dioxide 27 BUN 59 H Creatinine 4.64 H Est GFR ( Amer) 11 L Est GFR (Non-Af Amer) 9 L BUN/Creatinine Ratio 13 Glucose 103 POC Glucose Calculated Osmolality 313 H Lactic Acid Calcium 9.0 Magnesium Troponin I 7.09 H* Random Vancomycin A. baumannii (PCR) Jennifer albicans (PCR) C. glabrata (PCR) C. krusei (PCR) C. parapsilosis (PCR) C. tropicalis (PCR) Enterobacteriac sp PCR E. cloacae complex PCR Enterococcus sp PCR E. coli (PCR) H. influenzae (PCR) Klebsiella oxytoca PCR Klebsiella pneumoniae List. monocytogenes PCR N. meningitidis (PCR) Proteus species (PCR) Serratia marcescens PCR Staphylococcus sp PCR Staph aureus (PCR) mecA-Methicil Res Gene Streptococcus sp PCR Group A Strep DNA Group B Strep (PCR) Strep pneumoniae (PCR) P. aeruginosa (PCR) Kelsey/B-Vanco Res Genes KPC (blaKPC) Detect PCR Specimen Rejected Blood Type Antibody Screen MTS Gel Crossmatch
[2018-01-22] MEDS ORDERED: Vancomycin 500 MG in 0.9 % Sodium Chloride Mini Bag 100 ML IVPB ONE (18:00)
[2018-01-23] MEDS: *HR* OxyCODONE Immed Rel 5 MG TABLET PO PRN (01:46)
[2018-01-23] MEDS ORDERED: *HR* Labetalol 20 MG/4 ML SYRINGE IVP ONE (03:08)
[2018-01-23] MEDS: Ipratropium/Albuterol Neb 3 ML IH SCH ×4 (04:16→22:57)
[2018-01-23] MEDS: Piperacillin/Tazobactam 3.375 GM in 0.9 % Sodium Chloride Mini Bag 100 ML IVPB SCH ×2 (05:13→17:18)
[2018-01-23] MEDS: Amiodarone Premix 360 MG/200 ML BAG IVC SCH ×2 (07:27→18:16)
[2018-01-23] MEDS: MethylPREDNISolone 40 MG/ML VIAL IVP SCH ×2 (07:28→17:18)
--- NOTE | 2018-01-23 08:17 | Nephrology Progress Note ---
Date of Encounter: 01/23/18 Time of Encounter: 08:16 - Assessment and Plan (1) End stage renal disease Current Visit: No Status: Chronic We will attempt dialysis again tomorrow. Her oral intake is very low and therefore she is hypovolemic in general. Her overall prognosis appears to be very poor especially with the recent diagnosis of metastatic lung cancer. Subjective Principal diagnosis: Syncope Interval history: The patient remains critically ill. She was unable to complete her full dialysis treatment yesterday because of hypotension and tachycardia. She currently is resting comfortably. An oxygen mask is in place. There is no lab from today. Blood cultures are growing gram-negative rods and gram-positive cocci. Objective - Vital Signs Vital signs: Vital Signs Temp Pulse Resp BP Pulse Ox 01/23/18 08:00 92 12 95/51 95 01/23/18 07:00 91 12 101/56 95 01/23/18 05:18 98.4 F 01/23/18 05:00 89 18 99/54 97 01/23/18 04:16 18 95/53 96 01/23/18 04:00 85 16 95/53 95 01/23/18 03:00 107 18 91/50 94 01/23/18 02:11 105 01/23/18 02:00 105 20 88/55 94 01/23/18 01:00 109 18 94/58 93 01/23/18 00:24 97.7 F 01/23/18 00:00 109 18 95/55 93 01/22/18 23:00 106 18 80/52 93 01/22/18 22:51 14 90/52 93 01/22/18 22:11 105 01/22/18 22:00 103 16 110/85 91 01/22/18 21:00 106 20 91/53 91 01/22/18 20:00 107 19 91/58 91 01/22/18 19:35 96.4 F L 01/22/18 19:34 17 82/42 90 01/22/18 19:00 105 01/22/18 18:00 112 20 83/44 90 01/22/18 17:00 112 22 76/53 89 01/22/18 16:25 97.9 F 21 84/50 01/22/18 16:15 83/70 01/22/18 16:10 107/61 01/22/18 16:00 114 24 103/65 92 01/22/18 15:55 86/66 01/22/18 15:53 20 93 01/22/18 15:40 80/55 01/22/18 15:28 98.5 F 01/22/18 15:25 81/50 01/22/18 15:10 91/58 01/22/18 15:00 104 20 78/50 89 01/22/18 14:55 96/61 01/22/18 14:40 98.5 F 19 100/64 01/22/18 14:00 106 19 96/65 87 01/22/18 13:00 102 20 105/66 92 01/22/18 12:00 110 21 92/61 90 01/22/18 11:23 98.4 F 01/22/18 11:00 108 22 89 01/22/18 10:18 20 91 01/22/18 10:00 96 20 104/75 92 01/22/18 09:00 98 19 100/58 92 Intake and Output 01/22/18 01/23/18 01/23/18 23:59 07:59 15:59 Intake Total 100 / 100 400 / 400 Output Total 329 / 329 0 / 0 0 / 0 Balance -229 / -229 400 / 400 0 / 0 Intake: IV Fluids 100 / 100 350 / 350 ALBURX 5% 12.5 gm In 250 ml @ 250 / 250 60 mls/hr IVPB .Q4H 10M [facility] Rx# :[id number] Zosyn 3.375 GM In 0.9 % Sodium 100 / 100 Chloride (Mini-Bag +) 100 ML @ 25 mls/hr IVPB Q12HR [facility] Rx#: [id number] Vancocin 500 MG In 0.9 % Sodium 100 / 100 Chloride (Mini-Bag +) 100 ML @ 100 mls/hr IVPB ONCE ONE Rx#: [id number] Oral 0 / 0 50 / 50 Output: Urine 0 / 0 0 / 0 0 / 0 Total Dialysis (HD) Output 329 / 329 Other: Weight 57.3 kg Hemodialysis Net Fluid Removed 0 (mL) Patient Weight 01/23/18 23:59 Weight 57.3 kg - General Appearance Exam: Patient is somnolent but she does not her head when asked questions. Lungs diminished breath sounds with some coarse rales. Heart regular rate and rhythm. Abdomen is benign. There is no lower extremity swelling. There is a functioning AV fistula in the left upper extremity. - Lab 01/22/18 07:00 01/22/18 06:50 Most recent lab results Calcium 9.1 mg/dL (8.6-10.3) 01/22/18 06:50 Magnesium 1.8 mg/dL (1.6-2.6) 01/21/18 03:26 - VTE Documentation of Mechanical Device: Intermittent pneumatic compression device Consult Discharge Plan - Plan Referrals: Yonatan Aleman DO [Primary Care Provider] - 01/29/18 1:00 pm
--- NOTE | 2018-01-23 08:41 | Pulmonology Progress Note ---
<DeandraAubrey M - Last Filed: 01/23/18 17:45> Date of Encounter: 01/23/18 Objective PUL Vital signs: Last Vital Signs Temp 98.0 F 01/23/18 15:29 Pulse 87 01/23/18 17:00 Resp 28 01/23/18 17:00 BP 93/48 01/23/18 17:00 Pulse Ox 90 01/23/18 17:00 Results - Laboratory Findings CBC and BMP: 01/23/18 08:55 01/23/18 08:10 PT/INR, D-dimer PT 13.1 Seconds (9.4-12.1) H 01/19/18 03:33 Abnormal lab findings: Abnormal lab results RBC 2.06 M/mcL (3.82-4.97) L 01/23/18 08:55 Hgb 6.7 g/dL (11.5-15.4) L D 01/23/18 08:55 Hct 22.1 % (35.3-44.9) L 01/23/18 08:55 MCV 107.3 fL (83.0-100.0) H 01/23/18 08:55 MCHC 30.3 g/dL (31.6-35.5) L 01/23/18 08:55 RDW 16.4 % (11.5-14.5) H 01/23/18 08:55 Plt Count 17 K/mcL (140-400) L* 01/23/18 08:55 Metamyelocytes % 4.0 % (0) H 01/21/18 03:26 Myelocytes % 2.0 % (0) H 01/21/18 03:26 Lymphocytes # 0.1 K/mcL (0.6-4.6) L 01/23/18 08:55 Nucleated RBCs/100 WBC 0.3 /100 WBC (0) H 01/21/18 03:26 Platelet Estimate Marked Decrease (Normal) L 01/23/18 08:55 Immature Plt Fraction 6.3 % (1.1-6.1) H 01/23/18 08:55 Poikilocytosis 1+ (Not Present) A 01/23/18 08:55 Anisocytosis 1+ (Not Present) A 01/22/18 07:00 Microcytosis Present (Not Present) A 01/21/18 03:26 Spherocytes 1+ (Not Present) A 01/23/18 08:55 Helmet Cells Present (Not Present) A 01/23/18 08:55 PT 13.1 Seconds (9.4-12.1) H 01/19/18 03:33 BUN 73 mg/dL (8-23) H 01/23/18 08:10 Creatinine 4.75 mg/dL (0.60-1.20) H 01/23/18 08:10 Est GFR ( Amer) 11 (> 60) L 01/23/18 08:10 Est GFR (Non-Af Amer) 9 (> 60) L 01/23/18 08:10 Glucose 113 mg/dL (70-105) H 01/23/18 08:10 POC Glucose 116 mg/dL (70-99) H 01/21/18 06:47 Calculated Osmolality 320 (280-300) H 01/23/18 08:10 Troponin I 3.72 ng/mL (< 0.04) H* 01/20/18 01:30 Enterobacteriac sp PCR DETECTED (Not Detect) A 01/21/18 07:45 Enterococcus sp PCR DETECTED (Not Detect) A 01/21/18 07:45 E. coli (PCR) DETECTED (Not Detect) A 01/21/18 07:45 - Microbiology Findings Microbiology Findings: Microbiology, Last 48 Hours 01/21/18 07:45 Blood Culture - Preliminary Peripheral Venipuncture Gram Negative Bandar Gram Positive Cocci 01/21/18 07:45 Blood Culture - Preliminary Peripheral Venipuncture Gram Negative Bandar - Clinical Findings Intake & Output: Intake & Output 01/23/18 01/23/18 01/23/18 07:59 15:59 23:59 Intake Total 400 / 400 100 / 100 Output Total 0 / 0 0 / 0 0 / 0 Balance 400 / 400 100 / 100 0 / 0 Weight 57.3 kg Consult Discharge Plan - Plan Referrals: Yonatan Aleman DO [Primary Care Provider] - 01/29/18 1:00 pm - Attending Attestation I examined this patient and my medical decision-making was reviewed with the Resident Physician. I agree with the documented findings, disposition and treatment plan as described except to the extent set forth below. Patient seen and examined. Labs, radiology, chart personally reviewed. 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 In my opinion patient is poor prognosis, however she remained full code and palliative care is discussed with the patient and the family. Cardiovascular: Patient with episodes of SVTs and hypotension GI: Nutrition per dietary and GI prophylaxis per routine. Patient is malnourished and difficult to meet nutrition goals. Heme: DVT prophylaxis per routine Renal; urine out put and renal funtion reviewed Endorcine: blood glucose is monitored Lines: all lines checked and no evidence of infections Skin: skin care to prevent pressure ulcers per nursing routine care Overall prognosis is poor <Cyndi Chu - Last Filed: 01/23/18 18:58> Date of Encounter: 01/23/18 Time of Encounter: 09:00 Assessment and Plan (1) Pneumonia Current Visit: Yes Status: Acute Possibly d/t aspiration in setting of syncope Currently afebrile--was hypothermic (96.4 F) last night Weak cough, no sputum available for culture Peripheral blood culture (+) for gram negative bandar and gram positive cocci-- sensitivities unavailable at this time Zosyn and Vancomycin---both day 3 Plan Continue empiric abx for now Once sensitivity report available, will de-escalate abx accordingly Culture sputum if sample produced Consult speech therapy for swallow eval Qualifiers: Pneumonia type: due to unspecified organism Laterality: right Lung location: lower lobe of lung Qualified Code(s): J18.1 - Lobar pneumonia, unspecified organism (2) ESRD (end stage renal disease) on dialysis Current Visit: Yes Status: Chronic M W F hemodialysis schedule Pt unable to tolerate full HD treatment yesterday, received about half of her HD treatment Nephrology (Kaitlynn) following Plan Attempt dialysis again tomorrow (3) COPD exacerbation Current Visit: Yes Status: Acute Currently smokes Dependent on 4L home O2 Plan Continue IV Solu-Medrol Continue oxymask, BiPAP Continue bronchodilators Continue antibiotics as above (4) Lung mass Current Visit: Yes Status: Acute CXR 01/20/18 notes previously described right middle lobe and mediastinal nodes seen on last CT chest CT chest 01/10/18 showing: New lobulated mass-like opacity of right middle lobe with enlarged mediastinal lymph nodes Multiple reticulonodular densities within lungs bilaterally--inflammatory vs lymphangitic carcinomatosis Multiple lesions in liver, compatible with diffuse metastatic disease Evidence for bony metastatic disease in T10 vertebral body Based on pathology s/p liver biopsy last consistent with 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 Syncopal episode at home, witnessed by home health nurse who performed CPR Vfib en route to [place], EMS cardioverted Plan CT head without contrast Fall precautions (6) NSTEMI (non-ST elevated myocardial infarction) Current Visit: Yes Status: Acute Troponin 7.09--> 4.40--> 3.72 EKG showed sinus tachycardia and LVH Cardiology recommends medical management, not a candidate for invasive therapies No further cardiac testing, per cardiology Plan Continue to hold heparin for Plt < 50K (7) Thrombocytopenia Current Visit: Yes Status: Chronic Plt count continues to drop, 33K --> 17K today No evidence of active bleeding at this time Etiology unclear at this time Plan Follow with morning CBC's Continue to hold heparin for Plt < 50K (8) Atrial fibrillation Current Visit: Yes Status: Chronic Overnight pt had 4 episodes SVT and was managed with labetalol Currently rate controlled 80's-90's Regular rhythm on teletypesetter monitor Amio gtt restarted this afternoon--pt in and out of VT for approx 8 minutes and was sleeping, per RN Plan Metoprolol 5mg IV Q6H (hold for SBP < 100 or HR < 100) Continue teletypesetter monitor Continue holding anticoagulation d/t worsening thrombocytopenia Qualifiers: Atrial fibrillation type: unspecified Qualified Code(s): I48.91 - Unspecified atrial fibrillation (9) Chronic anemia Current Visit: Yes Status: Acute Chronic anemia in setting of ESRD Baseline Hgb this year (8.4-10.3) Hgb 6.7 today, drop from 8.9 yesterday--no active signs of bleeding visible, unclear etiology Plan Trend Hgb on daily CBC's Transfuse 1 unit pRBC's, recheck H/H Continue to monitor for active signs of bleeding (10) Goals of care, counseling/discussion Current Visit: Yes Status: Acute Overall, her long-term prognosis is poor Lung mass with liver mets was diagnosed last admission, didn't go to scheduled oncology appointment Multiple, chronic co-morbidities including: ESRD, HD non-compliance, chronic respiratory failure on home O2, CHF, thoracoabdominal aortic aneurysm (h/o rupture?), and CAD s/p CABG Children: 1 daughter and 1 son Current code status: Full code, would accept CPR with intubation for mechanical ventilation ? Living Will signed, not yet notarized ? 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 Pt's clinical status (bacteremia, PNA, arrhythmia, NSTEMI, poor nutritional status, inability to tolerate HD, and now a possible bleed) and prognosis was reviewed with family Family continues to insist on aggressive care and continued testing/imaging Pt remains full code Plan Palliative and oncology following CT head, chest, abdomen/pelvis (11) DVT prophylaxis Current Visit: Yes Status: Acute Continue holding heparin (platelets are < 50K) Continue EPCDs Subjective Principal diagnosis: Syncope Interval history: Overnight: 4 episodes SVT, treated with labetalol Pt seen and examined this morning. She's in bed sleeping, wearing an oxymask. Frail and weak appearing. Answers some questions but falls back asleep quickly, interaction limited. She denies chest pain, abdominal pain, fevers/chills. Objective PUL Vital signs: Last Vital Signs Temp 98.4 F 01/23/18 05:18 Pulse 92 01/23/18 08:00 Resp 12 01/23/18 08:00 BP 95/51 01/23/18 08:00 Pulse Ox 95 01/23/18 08:00 General appearance: no acute distress, asleep Effort: normal (shallow) Auscultation: bilateral: rhonchi Cardiovascular: regular rate and rhythm Gastrointestinal: normoactive bowel sounds, soft, non-tender Extremities: no edema, pink and warm Musculoskeletal: other (muscle atrophy) unable to assess due to mental status (very somnolent), other (opens eyes on command, responds to yes/no questions by nodding/shaking her head, moves all extremities spontaneously) Results - Laboratory Findings CBC and BMP: 01/23/18 08:55 01/23/18 08:10 PT/INR, D-dimer PT 13.1 Seconds (9.4-12.1) H 01/19/18 03:33 Abnormal lab findings: Abnormal lab results RBC 2.78 M/mcL (3.82-4.97) L 01/22/18 07:00 Hgb 8.9 g/dL (11.5-15.4) L 01/22/18 07:00 Hct 29.5 % (35.3-44.9) L 01/22/18 07:00 MCV 106.1 fL (83.0-100.0) H 01/22/18 07:00 MCHC 30.2 g/dL (31.6-35.5) L 01/22/18 07:00 RDW 16.4 % (11.5-14.5) H 01/22/18 07:00 Plt Count 33 K/mcL (140-400) L 01/22/18 07:00 Metamyelocytes % 4.0 % (0) H 01/21/18 03:26 Myelocytes % 2.0 % (0) H 01/21/18 03:26 Lymphocytes # 0.3 K/mcL (0.6-4.6) L 01/21/18 03:26 Nucleated RBCs/100 WBC 0.3 /100 WBC (0) H 01/21/18 03:26 Platelet Estimate Decreased (Normal) L 01/22/18 07:00 Immature Plt Fraction 6.5 % (1.1-6.1) H 01/22/18 07:00 Anisocytosis 1+ (Not Present) A 01/22/18 07:00 Microcytosis Present (Not Present) A 01/21/18 03:26 PT 13.1 Seconds (9.4-12.1) H 01/19/18 03:33 Potassium 5.3 mEq/L (3.5-5.1) H 01/22/18 06:50 BUN 76 mg/dL (8-23) H 01/22/18 06:50 Creatinine 5.21 mg/dL (0.60-1.20) H 01/22/18 06:50 Est GFR ( Amer) 10 (> 60) L 01/22/18 06:50 Est GFR (Non-Af Amer) 8 (> 60) L 01/22/18 06:50 POC Glucose 116 mg/dL (70-99) H 01/21/18 06:47 Calculated Osmolality 318 (280-300) H 01/22/18 06:50 Troponin I 3.72 ng/mL (< 0.04) H* 01/20/18 01:30 Enterobacteriac sp PCR DETECTED (Not Detect) A 01/21/18 07:45 Enterococcus sp PCR DETECTED (Not Detect) A 01/21/18 07:45 E. coli (PCR) DETECTED (Not Detect) A 01/21/18 07:45 - Microbiology Findings Microbiology Findings: Microbiology, Last 48 Hours 01/21/18 07:45 Blood Culture - Preliminary Peripheral Venipuncture Gram Negative Bandar Gram Positive Cocci 01/21/18 07:45 Blood Culture - Preliminary Peripheral Venipuncture Gram Negative Bandar - Clinical Findings Intake & Output: Intake & Output 01/22/18 01/23/18 01/23/18 23:59 07:59 15:59 Intake Total 100 / 100 400 / 400 Output Total 329 / 329 0 / 0 0 / 0 Balance -229 / -229 400 / 400 0 / 0 Weight 57.3 kg - VTE Documentation of Mechanical Device: Intermittent pneumatic compression device
[2018-01-23 08:52] LABS: Calcium 8.8 mg/dL (8.6-10.3)
[2018-01-23 09:13] LABS: Hematocrit 22.1 % (35.3-44.9); Hemoglobin 6.7 g/dL (11.5-15.4); Immature Granulocytes % 1.2 % (0-4); Immature Platelets 6.3 % (1.1-6.1); Lymphocytes # 0.1 K/mcL (0.6-4.6); Lymphocytes % 1.5 %; Mean Corpuscular HGB Conc 30.3 g/dL (31.6-35.5); Mean Corpuscular Hemoglobin 32.5 pg (28.0-33.3); Mean Corpuscular Volume 107.3 fL (83.0-100.0); Mean Platelet Volume 11.5 fL (9.4-12.4); Monocytes # 0.2 K/mcL (0.0-1.3); Monocytes % 2.8 %; Neutrophils # 5.8 K/mcL (1.6-8.9); Red Blood Count 2.06 M/mcL (3.82-4.97); Red Cell Distribution Width 16.4 % (11.5-14.5); Segmented Neutrophils % 94.5 %
[2018-01-23 09:19] LABS: Platelet Count 17 K/mcL (140-400)
--- NOTE | 2018-01-23 09:57 | Palliative Progress Note ---
Date of Encounter: 01/23/18 Time of Encounter: 09:55 - Assessment and plan (1) Generalized pain Current Visit: Yes Status: Acute Assessment and plan: Utilized Oxycodone 10mg x1 last 24 hours. Monitor (2) Counseling regarding advanced care planning and goals of care Current Visit: Yes Status: Acute Assessment and plan: Met with family yesterday late afternoon. Oncology attended as well. Family needed some time to process information. I discussed biopsy finding with pt this am, and discussed that she needs to be thinking about her goals of care and we would be revisiting this afternoon when her family arrives. Update 1630 - 90 min meeting with Flash Shrestha, Rhys Baker, myself, and pt son/ daughter and also discussed at length with patient. Reviewed again clinical status with infection, pneumonia, issues with heart rate s/p NSTEMI, metastatic cancer, poor nutritional status, did not tolerate HD yesterday and now possible bleeding. Son states he is not ready to "give up yet". Discussed at length that we may have to do testing/procedures that is uncomfortable for her, and because of her critical status, she may not be candidate for some invasive testing. He continues to state "just do dialysis tomorrow and see if she tolerates". Again reiterated that many other problems other than just her dialysis, and despite what we do now to try and prolong her life, she has metastatic terminal cancer and she would eventually pass away. Discussed if they knew what she would consider They are wanting pt to give them answers on what she desires. Attempted to discuss with pt who would acknowledge that she heard me and understood, but would not respond to questions about what she wanted. I gave some time for children to discuss with her alone. When I returned, family was not around, but daughter communicated with me by phone that her mother wanted to keep fighting. (3) Metastatic lung carcinoma Current Visit: Yes Status: Acute Assessment and plan: Oncology familiar with patient and following. Qualifiers: Laterality: unspecified laterality Qualified Code(s): C78.00 - Secondary malignant neoplasm of unspecified lung (4) Acute and chronic respiratory failure Current Visit: Yes Status: Acute Qualifiers: Respiratory failure complication: hypoxia and hypercapnia Qualified Code(s) : J96.21 - Acute and chronic respiratory failure with hypoxia; J96.22 - Acute and chronic respiratory failure with hypercapnia (5) COPD exacerbation Current Visit: Yes Status: Acute Assessment and plan: Continues with bronchodilators/steroids per pulmonology (6) ESRD (end stage renal disease) Current Visit: Yes Status: Acute Assessment and plan: Dr. Calderón follows. - Time Spent With Patient Total time spent is greater than 50% in coordination of care (as documented) at patient's floor/unit and/or counseling patient: - Subjective Interval history: Patient sleeping on arrival - awakens easily. Opens eyes, Nods head yes/no to questions appropriately. Denies pain or discomfort. - Constitutional Vitals: Abnormal lab results RBC 2.06 M/mcL (3.82-4.97) L 01/23/18 08:55 Hgb 6.7 g/dL (11.5-15.4) L D 01/23/18 08:55 Hct 22.1 % (35.3-44.9) L 01/23/18 08:55 MCV 107.3 fL (83.0-100.0) H 01/23/18 08:55 MCHC 30.3 g/dL (31.6-35.5) L 01/23/18 08:55 RDW 16.4 % (11.5-14.5) H 01/23/18 08:55 Plt Count 17 K/mcL (140-400) L* 01/23/18 08:55 Metamyelocytes % 4.0 % (0) H 01/21/18 03:26 Myelocytes % 2.0 % (0) H 01/21/18 03:26 Lymphocytes # 0.3 K/mcL (0.6-4.6) L 01/21/18 03:26 Nucleated RBCs/100 WBC 0.3 /100 WBC (0) H 01/21/18 03:26 Platelet Estimate Decreased (Normal) L 01/22/18 07:00 Immature Plt Fraction 6.3 % (1.1-6.1) H 01/23/18 08:55 Anisocytosis 1+ (Not Present) A 01/22/18 07:00 Microcytosis Present (Not Present) A 01/21/18 03:26 PT 13.1 Seconds (9.4-12.1) H 01/19/18 03:33 BUN 73 mg/dL (8-23) H 01/23/18 08:10 Creatinine 4.75 mg/dL (0.60-1.20) H 01/23/18 08:10 Est GFR ( Amer) 11 (> 60) L 01/23/18 08:10 Est GFR (Non-Af Amer) 9 (> 60) L 01/23/18 08:10 Glucose 113 mg/dL (70-105) H 01/23/18 08:10 POC Glucose 116 mg/dL (70-99) H 01/21/18 06:47 Calculated Osmolality 320 (280-300) H 01/23/18 08:10 Troponin I 3.72 ng/mL (< 0.04) H* 01/20/18 01:30 Enterobacteriac sp PCR DETECTED (Not Detect) A 01/21/18 07:45 Enterococcus sp PCR DETECTED (Not Detect) A 01/21/18 07:45 E. coli (PCR) DETECTED (Not Detect) A 01/21/18 07:45 General appearance: Present: no acute distress - Respiratory Additional comments: Breath sounds course, rhonchi throughout. Oxygen currently at 8 LPM - Cardiovascular Cardiovascular exam: Present: +S1, +S2 - GI/Abdominal GI/Abdominal exam: Present: normal bowel sounds, soft - Extremities Exam Extremities exam: Present: normal capillary refill, normal inspection - Neurological Exam Neurological exam: Present: alert Additional comments: Follows simple commands, not responding verbally this am. - Skin Skin exam: Present: dry, warm Palliative Quality Palliative Quality: Screen for Code Status: Yes, Screen for Goals of Care: Yes, Screen for Pain: Yes, If Pain Regimen Started, Initiate Bowel Regimen: Yes, Screen for Nausea/Vomitting: Yes Code Status: 01/18/18 22:19 Resuscitation Status: Active [RES] Routine Comment: Resuscitation Status: Full Code - Labs CBC & Chem 7: 01/23/18 08:55 01/23/18 08:10 Labs: Laboratory Results - last 24 hr 01/23/18 01/23/18 01/23/18 08:10 08:38 08:55 WBC 6.1 RBC 2.06 L Hgb 6.7 L D Hct 22.1 L MCV 107.3 H MCH 32.5 MCHC 30.3 L RDW 16.4 H Plt Count 17 L* MPV 11.5 Immature Plt Fraction 6.3 H Sodium 144 Potassium 5.0 Chloride 101 Carbon Dioxide 24 BUN 73 H Creatinine 4.75 H Est GFR ( Amer) 11 L Est GFR (Non-Af Amer) 9 L BUN/Creatinine Ratio 15 Glucose 113 H Calculated Osmolality 320 H Calcium 8.8 Specimen Rejected Contaminated - ABG Interpretation ABG results: PT/INR, D-dimer PT 13.1 Seconds (9.4-12.1) H 01/19/18 03:33 Consult Discharge Plan - Plan Referrals: Yonatan Aleman DO [Primary Care Provider] - 01/29/18 1:00 pm
[2018-01-23] MEDS: Budesonide/Formoterol 80/4.5 MDI IH SCH ×2 (10:00→22:57)
[2018-01-23 10:06] LABS: Helmet Cells Present (Not Present); Platelet Estimate Marked Decrease (Normal); Poikilocytosis 1+ (Not Present); Spherocytes 1+ (Not Present)
[2018-01-23] MEDS: Renal Vitamin 1 MG CAPSULE PO SCH (10:06)
[2018-01-23] MEDS: Folic Acid 1 MG TABLET PO SCH (10:06)
[2018-01-23] MEDS: Aspirin 81 MG TAB.CHEW PO SCH (10:06)
[2018-01-23] MEDS: *HR* Metoprolol 5 MG/5 ML VIAL IVP SCH ×2 (11:47→17:18)
[2018-01-23] MEDS ORDERED: 0.9 % Sodium Chloride 250 ML ONE (15:10)
[2018-01-23 20:38] LABS: Hematocrit 26.6 % (35.3-44.9); Hemoglobin 7.9 g/dL (11.5-15.4)
[2018-01-23 20:47] LABS: INR 1.3; Prothrombin Time 14.1 Seconds (9.4-12.1)
[2018-01-23 20:49] LABS: Activated Partial Thrombo Time 28.2 Seconds (26.0-36.0)
[2018-01-24] MEDS: *HR* Metoprolol 5 MG/5 ML VIAL IVP SCH ×5 (00:23→22:59)
[2018-01-24] MEDS: MethylPREDNISolone 40 MG/ML VIAL IVP SCH ×2 (00:23→07:41)
[2018-01-24] MEDS: Ipratropium/Albuterol Neb 3 ML IH SCH ×4 (04:05→22:38)
[2018-01-24 04:19] LABS: Basophils % 0.1 %; Hematocrit 25.5 % (35.3-44.9); Hemoglobin 7.8 g/dL (11.5-15.4); Immature Granulocytes % 1.5 % (0-4); Immature Platelets 6.4 % (1.1-6.1); Lymphocytes # 0.2 K/mcL (0.6-4.6); Lymphocytes % 1.7 %; Mean Corpuscular HGB Conc 30.6 g/dL (31.6-35.5); Mean Corpuscular Hemoglobin 32.8 pg (28.0-33.3); Mean Corpuscular Volume 107.1 fL (83.0-100.0); Mean Platelet Volume 10.5 fL (9.4-12.4); Monocytes # 0.2 K/mcL (0.0-1.3); Monocytes % 2.6 %; Neutrophils # 8.4 K/mcL (1.6-8.9); Red Blood Count 2.38 M/mcL (3.82-4.97); Red Cell Distribution Width 16.6 % (11.5-14.5); Segmented Neutrophils % 94.1 %
[2018-01-24 04:34] LABS: Calcium 8.5 mg/dL (8.6-10.3); Potassium 5.3 mEq/L (3.5-5.1)
[2018-01-24 04:43] LABS: Platelet Count 17 K/mcL (140-400)
[2018-01-24 05:26] LABS: Anisocytosis 1+ (Not Present); Platelet Estimate Marked Decrease (Normal)
[2018-01-24] MEDS: Piperacillin/Tazobactam 3.375 GM in 0.9 % Sodium Chloride Mini Bag 100 ML IVPB SCH ×2 (06:03→17:36)
--- NOTE | 2018-01-24 06:07 | Pulmonology Progress Note ---
<Yayo Alvarez - Last Filed: 01/24/18 06:05> Date of Encounter: 01/24/18 Time of Encounter: 06:05 Assessment and Plan (1) Pneumonia Current Visit: Yes Status: Acute Systems based plan based on my evaluation but final plan to be determined by attending so please see his note for further detail: PAPER CONSERVATOR: patient following commands but is sleepy and slightly confused at times Pulm: Adequate oxygenation and ventilation in the setting of multiple comorbid conditions. Continue current meds and ABX. She remains at increasingly high risk of sudden deterioration and may require invasive ventilation since non- invasive is slowly not working, she remains full-code after multiple discussions with the family GI: Patient is extremely malnourished and we have nutrition per dietary and GI prophylaxis per routine. Will need to update nutrition goals as her condition worsens. Heme: Platelets continue to worsen, may consider replacing today, DVT prophylaxis per routine. Renal/Elec: Lytes, renal function, UOP, I/O's reviewed Endo: Continue to monitor blood glucose Lines: no evidence of infections Skin: standard nursing care to prevent ulcers Prognosis remains extremely poor and patient remains at high risk for sudden deterioration and should remain in the ICU. 1. Unclear etiology but could be due to aspiration from her syncopal episode 2. Sputum cultures have been ordered, but the patient has such a weak cough. She has been unable to produce any 3. Blood cultures are positive for gram-negative rods and gram-positive cocci ( enterococcus and Escherichia coli), so we will continue vancomycin and Zosyn 4. Plan to de-escalate antibiotics as sensitivities result Qualifiers: Pneumonia type: due to unspecified organism Laterality: right Lung location: lower lobe of lung Qualified Code(s): J18.1 - Lobar pneumonia, unspecified organism (2) Thrombocytopenia Current Visit: Yes Status: Chronic 1. Continues to decline, is getting critically low. Oncology was following. We will consider giving platelets but will discuss with attending and oncology. (3) Atrial fibrillation Current Visit: Yes Status: Chronic 1. Continue amiodarone and Lopressor withhold conditions for Lopressor of systolic blood pressure less than 100 or heart rate less than 100 2. Continue continuous cardiac monitoring 3. We will continue to withhold anticoagulation due to thrombus cytopenia Qualifiers: Atrial fibrillation type: unspecified Qualified Code(s): I48.91 - Unspecified atrial fibrillation (4) COPD (chronic obstructive pulmonary disease) Current Visit: No Status: Chronic 1. Continue current supportive care with BiPAP, bronchodilators, antibiotics, steroids 2. Patient's respiratory status continues to decline and her multiple comorbid conditions put her at increased risk of clinical deterioration, which may eventually require invasive ventilation Qualifiers: COPD type: emphysema Emphysema type: unspecified Qualified Code(s): J43.9 - Emphysema, unspecified (5) DVT prophylaxis Current Visit: Yes Status: Acute 1. No subcutaneous heparin due to thrombocytopenia 2. Continue SCDs (6) End stage renal disease Current Visit: No Status: Chronic 1. Maintain Monday, Monday, Monday dialysis schedule as tolerated by her blood pressure 2. Nephrology following (7) Goals of care, counseling/discussion Current Visit: Yes Status: Acute 1. Another discussion with the family yesterday and the patient will remain full code. Patient has significant comorbidities and her long-term prognosis is extremely poor and we will continue to reevaluate as the patient progresses, but she seems to be slowly worsening. (8) Lung mass Current Visit: Yes Status: Acute 1. 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 However, the patient is not a candidate for palliative chemotherapy this time due to her critical condition, we will reevaluate if she stabilizes (9) NSTEMI (non-ST elevated myocardial infarction) Current Visit: Yes Status: Acute 1. Troponins have trended down, cardiology is following and not a candidate for invasive therapy and recommended no further testing. 2. We will continue to hold heparin due to thrombocytopenia Subjective Principal diagnosis: Syncope Interval history: no acute changes, lab work continues to worsen. Patient tachycardic again yesterday so Amio was restarted. Resp status slowly declining. Objective PUL Vital signs: Last Vital Signs Temp 97.4 F L 01/24/18 04:09 Pulse 78 01/24/18 05:00 Resp 12 01/24/18 05:00 BP 90/49 01/24/18 05:00 Pulse Ox 95 01/24/18 05:00 General appearance: no acute distress, lethargic Eyes: nonicteric ENT: oropharynx dry Neck: supple Effort: mildly labored Auscultation: bilateral: diminished breath sounds Results - Laboratory Findings CBC and BMP: 01/24/18 03:49 01/24/18 03:49 PT/INR, D-dimer PT 14.1 Seconds (9.4-12.1) H 01/23/18 20:20 D-Dimer 4276 ng/mLFEU (0-500) H 01/23/18 20:20 Abnormal lab findings: Abnormal lab results RBC 2.38 M/mcL (3.82-4.97) L 01/24/18 03:49 Hgb 7.8 g/dL (11.5-15.4) L 01/24/18 03:49 Hct 25.5 % (35.3-44.9) L 01/24/18 03:49 MCV 107.1 fL (83.0-100.0) H 01/24/18 03:49 MCHC 30.6 g/dL (31.6-35.5) L 01/24/18 03:49 RDW 16.6 % (11.5-14.5) H 01/24/18 03:49 Plt Count 17 K/mcL (140-400) L* 01/24/18 03:49 Metamyelocytes % 4.0 % (0) H 01/21/18 03:26 Myelocytes % 2.0 % (0) H 01/21/18 03:26 Lymphocytes # 0.2 K/mcL (0.6-4.6) L 01/24/18 03:49 Nucleated RBCs/100 WBC 0.3 /100 WBC (0) H 01/21/18 03:26 Platelet Estimate Marked Decrease (Normal) L 01/24/18 03:49 Immature Plt Fraction 6.4 % (1.1-6.1) H 01/24/18 03:49 Poikilocytosis 1+ (Not Present) A 01/23/18 08:55 Anisocytosis 1+ (Not Present) A 01/24/18 03:49 Microcytosis Present (Not Present) A 01/21/18 03:26 Spherocytes 1+ (Not Present) A 01/23/18 08:55 Helmet Cells Present (Not Present) A 01/23/18 08:55 PT 14.1 Seconds (9.4-12.1) H 01/23/18 20:20 Fibrinogen 522 mg/dL (169-393) H 01/23/18 20:20 D-Dimer 4276 ng/mLFEU (0-500) H 01/23/18 20:20 Potassium 5.3 mEq/L (3.5-5.1) H 01/24/18 03:49 BUN 89 mg/dL (8-23) H 01/24/18 03:49 Creatinine 5.37 mg/dL (0.60-1.20) H 01/24/18 03:49 Est GFR ( Amer) 10 (> 60) L 01/24/18 03:49 Est GFR (Non-Af Amer) 8 (> 60) L 01/24/18 03:49 Glucose 135 mg/dL (70-105) H 01/24/18 03:49 POC Glucose 116 mg/dL (70-99) H 01/21/18 06:47 Calculated Osmolality 329 (280-300) H 01/24/18 03:49 Calcium 8.5 mg/dL (8.6-10.3) L 01/24/18 03:49 Troponin I 3.72 ng/mL (< 0.04) H* 01/20/18 01:30 Enterobacteriac sp PCR DETECTED (Not Detect) A 01/21/18 07:45 Enterococcus sp PCR DETECTED (Not Detect) A 01/21/18 07:45 E. coli (PCR) DETECTED (Not Detect) A 01/21/18 07:45 - Microbiology Findings Microbiology Findings: Microbiology, Last 48 Hours 01/21/18 07:45 Blood Culture - Preliminary Peripheral Venipuncture Gram Negative Bandar Gram Positive Cocci 01/21/18 07:45 Blood Culture - Preliminary Peripheral Venipuncture Gram Negative Bandar - Clinical Findings Intake & Output: Intake & Output 01/23/18 01/23/18 01/24/18 15:59 23:59 07:59 Intake Total 200 / 200 450 / 450 0 / 0 Output Total 0 / 0 0 / 0 0 / 0 Balance 200 / 200 450 / 450 0 / 0 Weight 56.3 kg - VTE Documentation of Mechanical Device: Intermittent pneumatic compression device Consult Discharge Plan - Plan Referrals: Yonatan Aleman DO [Primary Care Provider] - 01/29/18 1:00 pm <Aubrey Liriano - Last Filed: 01/24/18 08:47> Date of Encounter: 01/24/18 Objective PUL Vital signs: Last Vital Signs Temp 98.5 F 01/24/18 07:55 Pulse 82 01/24/18 07:56 Resp 13 01/24/18 07:00 BP 112/62 01/24/18 07:00 Pulse Ox 96 01/24/18 07:00 Results - Laboratory Findings CBC and BMP: 01/24/18 03:49 01/24/18 03:49 PT/INR, D-dimer PT 14.1 Seconds (9.4-12.1) H 01/23/18 20:20 D-Dimer 4276 ng/mLFEU (0-500) H 01/23/18 20:20 Abnormal lab findings: Abnormal lab results RBC 2.38 M/mcL (3.82-4.97) L 01/24/18 03:49 Hgb 7.8 g/dL (11.5-15.4) L 01/24/18 03:49 Hct 25.5 % (35.3-44.9) L 01/24/18 03:49 MCV 107.1 fL (83.0-100.0) H 01/24/18 03:49 MCHC 30.6 g/dL (31.6-35.5) L 01/24/18 03:49 RDW 16.6 % (11.5-14.5) H 01/24/18 03:49 Plt Count 17 K/mcL (140-400) L* 01/24/18 03:49 Metamyelocytes % 4.0 % (0) H 01/21/18 03:26 Myelocytes % 2.0 % (0) H 01/21/18 03:26 Lymphocytes # 0.2 K/mcL (0.6-4.6) L 01/24/18 03:49 Nucleated RBCs/100 WBC 0.3 /100 WBC (0) H 01/21/18 03:26 Platelet Estimate Marked Decrease (Normal) L 01/24/18 03:49 Immature Plt Fraction 6.4 % (1.1-6.1) H 01/24/18 03:49 Poikilocytosis 1+ (Not Present) A 01/23/18 08:55 Anisocytosis 1+ (Not Present) A 01/24/18 03:49 Microcytosis Present (Not Present) A 01/21/18 03:26 Spherocytes 1+ (Not Present) A 01/23/18 08:55 Helmet Cells Present (Not Present) A 01/23/18 08:55 PT 14.1 Seconds (9.4-12.1) H 01/23/18 20:20 Fibrinogen 522 mg/dL (169-393) H 01/23/18 20:20 D-Dimer 4276 ng/mLFEU (0-500) H 01/23/18 20:20 Potassium 5.3 mEq/L (3.5-5.1) H 01/24/18 03:49 BUN 89 mg/dL (8-23) H 01/24/18 03:49 Creatinine 5.37 mg/dL (0.60-1.20) H 01/24/18 03:49 Est GFR ( Amer) 10 (> 60) L 01/24/18 03:49 Est GFR (Non-Af Amer) 8 (> 60) L 01/24/18 03:49 Glucose 135 mg/dL (70-105) H 01/24/18 03:49 POC Glucose 116 mg/dL (70-99) H 01/21/18 06:47 Calculated Osmolality 329 (280-300) H 01/24/18 03:49 Calcium 8.5 mg/dL (8.6-10.3) L 01/24/18 03:49 Troponin I 3.72 ng/mL (< 0.04) H* 01/20/18 01:30 Enterobacteriac sp PCR DETECTED (Not Detect) A 01/21/18 07:45 Enterococcus sp PCR DETECTED (Not Detect) A 01/21/18 07:45 E. coli (PCR) DETECTED (Not Detect) A 01/21/18 07:45 - Microbiology Findings Microbiology Findings: Microbiology, Last 48 Hours 01/21/18 07:45 Blood Culture - Preliminary Peripheral Venipuncture Escherichia coli Gram Positive Cocci Gram Positive Cocci#2 01/21/18 07:45 Blood Culture - Preliminary Peripheral Venipuncture Gram Negative Bandar - Clinical Findings Intake & Output: Intake & Output 01/23/18 01/24/18 01/24/18 23:59 07:59 15:59 Intake Total 450 / 450 200 / 200 Output Total 0 / 0 0 / 0 Balance 450 / 450 200 / 200 Weight 56.3 kg - Attending Attestation I examined this patient and my medical decision-making was reviewed with the Resident Physician. I agree with the documented findings, disposition and treatment plan as described except to the extent set forth below. Patient seen and examined. Labs, radiology, chart personally reviewed. Agree with resident's history and physical, assessment, plan with following comments: PAPER CONSERVATOR: Patient follows commands, Pulmonary: Acceptable oxygenation and ventilation on noninvasive ventilation and she is high risk for complications and deterioration and possible need for invasive ventilation. Patient remained full code and to continue care and ICU Cardiovascular: Relative hypotensive with episodes of SVTs GI: Nutrition per dietary and GI prophylaxis per routine. Nutrition is a concern Heme: DVT prophylaxis per routine. Thrombocytopenia which could be multifactorial and oncology has seen patient ID: Continue antibiotics and plan to de-escalation Renal; urine out put and renal funtion reviewed Endorcine: blood glucose is monitored Lines: all lines checked and no evidence of infections Skin: skin care to prevent pressure ulcers per nursing routine care Overall extremely poor prognosis
[2018-01-24] MEDS: Aspirin 81 MG TAB.CHEW PO SCH (07:38)
[2018-01-24] MEDS: Renal Vitamin 1 MG CAPSULE PO SCH (07:38)
[2018-01-24] MEDS: Folic Acid 1 MG TABLET PO SCH (07:38)
[2018-01-24] MEDS: Amiodarone Premix 360 MG/200 ML BAG IVC SCH ×2 (07:41→21:25)
[2018-01-24] MEDS: Levothyroxine Sodium 100 MCG VIAL IVP SCH (07:41)
[2018-01-24] MEDS: Budesonide/Formoterol 80/4.5 MDI IH SCH ×2 (10:21→22:38)
--- NOTE | 2018-01-24 11:11 | Nephrology Progress Note ---
Date of Encounter: 01/24/18 Time of Encounter: 10:20 - Assessment and Plan (1) End stage renal disease Current Visit: No Status: Chronic HD today, keeping MWF schedule. Hgb 7.8 will give one unit PRBC on HD. Orders given. Subjective Principal diagnosis: Syncope Interval history: Bipap. Nursing repositioning patient. Amiodorone drip Objective - Vital Signs Vital signs: Vital Signs Temp Pulse Resp BP Pulse Ox 01/24/18 10:23 18 95 01/24/18 10:00 76 17 113/62 96 01/24/18 09:00 79 12 110/62 96 01/24/18 08:00 80 13 112/62 96 01/24/18 07:56 82 01/24/18 07:55 98.5 F 01/24/18 07:00 82 13 112/62 96 01/24/18 06:00 77 17 93/50 95 01/24/18 05:00 78 12 90/49 95 01/24/18 04:09 97.4 F L 01/24/18 04:05 13 112/64 96 01/24/18 04:00 77 13 112/64 93 01/24/18 03:30 77 01/24/18 03:00 76 13 103/54 96 01/24/18 02:00 76 11 100/55 96 01/24/18 01:00 75 12 106/60 96 01/24/18 00:55 19 108/57 93 01/24/18 00:05 97.7 F 01/24/18 00:00 81 19 110/57 95 01/23/18 23:30 81 01/23/18 23:00 80 20 98/50 95 01/23/18 22:57 13 112/64 96 01/23/18 22:00 79 14 91/44 95 01/23/18 21:00 79 14 108/55 90 01/23/18 20:31 97.9 F 01/23/18 20:00 81 12 97/52 98 01/23/18 19:30 80 01/23/18 19:04 98.0 F 79 22 97/52 98 01/23/18 19:00 78 12 97/52 98 01/23/18 18:00 80 26 98/50 95 01/23/18 17:00 87 28 93/48 90 01/23/18 16:00 89 22 98/52 95 01/23/18 15:29 98.0 F 85 16 96/50 97 01/23/18 15:15 18 95 01/23/18 15:14 97.6 F 86 17 92/49 95 01/23/18 15:00 98.0 F 86 23 92/49 96 01/23/18 14:00 82 18 102/48 94 01/23/18 13:00 86 13 103/55 96 01/23/18 12:00 87 13 99/57 96 01/23/18 11:15 97.6 F Intake and Output 01/23/18 01/24/18 01/24/18 23:59 07:59 15:59 Intake Total 450 / 450 200 / 200 Output Total 0 / 0 0 / 0 Balance 450 / 450 200 / 200 Intake: IV Fluids 100 / 100 200 / 200 Amiodarone Drip Premix 360mg/ 200 / 200 200mL 360 mg In 200 ml @ 0.5 MG /MIN 16.667 mls/hr IVC CONT MILES Rx#:[id number] Zosyn 3.375 GM In 0.9 % Sodium 100 / 100 Chloride (Mini-Bag +) 100 ML @ 25 mls/hr IVPB Q12HR MILES Rx#: [id number] Oral 0 / 0 0 / 0 Blood Product 350 / 350 Rbcs Leuko Poor As-1 Unit 350 / 350 [id number] Output: Urine 0 / 0 0 / 0 Other: Meal Dinner Percent of Meal Consumed 0% Weight 56.3 kg Patient Weight 01/24/18 23:59 Weight 56.3 kg - General Appearance General appearance: Present: well-developed, well-nourished, appears started age , chronically ill EENT: Present: mucous membranes moist Neck: Present: no JVD Respiratory: Present: clear Additional Comments: diminished throughout Cardiology: Present: no edema, regular rate, regular rhythm Dialysis Vascular Access: Arteriovenous Fistula thrill: Yes bruit: Yes Gastrointestinal: Present: hypoactive bowel sounds, no tenderness Integumentary: Present: warm and dry Psychiatric: Present: mood/affect appropriate, cooperative - Lab 01/24/18 03:49 01/24/18 03:49 Most recent lab results Calcium 8.5 mg/dL (8.6-10.3) L 01/24/18 03:49 Magnesium 1.8 mg/dL (1.6-2.6) 01/21/18 03:26 - VTE Documentation of Mechanical Device: Intermittent pneumatic compression device Consult Discharge Plan - Plan Referrals: Yonatan Aleman DO [Primary Care Provider] - 01/29/18 1:00 pm
[2018-01-24] MEDS ORDERED: 0.9 % Sodium Chloride 250 ML IVC PRN (11:40)
[2018-01-24] MEDS ORDERED: 0.9 % Sodium Chloride 1,000 ML PRIME SCH (11:45)
--- NOTE | 2018-01-24 16:51 | Oncology Inp Progress Note ---
<Kaylen Stubbs L - Last Filed: 01/25/18 10:52> Date of Encounter: 01/23/18 Time of Encounter: 17:30 (1) Small cell lung carcinoma Current Visit: Yes Status: Acute Assessment and plan: Newly diagnosed metastatic Stage IV Small cell lung carcinoma s/p liver biopsy on 01/16/2018. Patient has multiple acute issues and comorbidities complicating her road to treatment at this time including her admission following syncopal episode,V-fib with cardioversion, pneumonia, bacteremia, acute on chronic respiratory failure and acute NSTEMI for which cardiology is recommending medical management for ( heparin stopped prior to recommended 48 hours of treatment secondary to worsening thrombocytopenia). She is requiring 10L O2 and BiPAP at times to meet her respiratory needs. At this time, oncology does not recommend chemotherapy given her fragile state. If patient/patients family wish to purse comfort care options and hospice, this would also be reasonable goal for patient given her acute issues, guarded condition, multiple comorbidities and overall history of noncompliance/wish to stay home and not pursue treatments/interventions at times. Appreciate further discussions guided by palliative care and ICU team, we would be happy to be a part of these discussions as well. Oncology will follow from a distance otherwise, should the patient/patients family continue to wish for an aggressive treatment approach and should she stabilize enough in future to allow for stepdown from ICU, would reassess role for chemotherapy at that time. Please refer to 's attestation below for additional details. (2) Thrombocytopenia Current Visit: Yes Status: Chronic Assessment and plan: Chronic and acutely worsened Secondary to questionable underlying liver disease, superimposed on now innumerable liver metastases, superimposed systemic infection Coags stable, INR 1.2 Fibrinogen elevated as to be expected at 522 Blood smear does not indicate schistocytes Does not appear to be consistent with DIC/TMAs/HIT Check LDH and [place] Continue to treat supportively. Transfuse for platelets <10 or for overt bleeding She is at high risk for DVT in setting of active malignancy, unable to give AC secondary to thrombocytopenia/risk for bleeding. Continue SCDs Please refer to Dr. White's attestation below for additional details. Oncology: Subj Interval history: Ms. Orellana is resting in bed, on 10L O2, minimal distress, vitals appear stable. Opens her eyes to verbal stimulation however does not respond to questions and instead closes her eyes. No family at bedside - Constitutional Vitals: Vital Signs Temp Pulse Resp BP Pulse Ox 01/24/18 16:00 97.9 F 76 15 102/64 98 01/24/18 15:43 14 96 01/24/18 15:00 77 14 100/61 96 01/24/18 14:00 78 17 91/46 96 01/24/18 13:00 75 15 83/55 95 01/24/18 12:00 97.8 F 74 17 106/55 98 01/24/18 11:20 82 01/24/18 11:00 76 13 105/59 97 01/24/18 10:23 18 95 01/24/18 10:00 76 17 113/62 96 01/24/18 09:00 79 12 110/62 96 01/24/18 08:00 80 13 112/62 96 01/24/18 07:56 82 01/24/18 07:55 98.5 F 01/24/18 07:00 82 13 112/62 96 01/24/18 06:00 77 17 93/50 95 01/24/18 05:00 78 12 90/49 95 01/24/18 04:09 97.4 F L 01/24/18 04:05 13 112/64 96 01/24/18 04:00 77 13 112/64 93 01/24/18 03:30 77 01/24/18 03:00 76 13 103/54 96 01/24/18 02:00 76 11 100/55 96 01/24/18 01:00 75 12 106/60 96 01/24/18 00:55 19 108/57 93 01/24/18 00:05 97.7 F 01/24/18 00:00 81 19 110/57 95 18 23:30 81 18 23:00 80 20 98/50 95 18 22:57 13 112/64 96 01/23/18 22:00 79 14 91/44 95 18 21:00 79 14 108/55 90 18 20:31 97.9 F 01/23/18 20:00 81 12 97/52 98 01/23/18 19:30 80 01/23/18 19:04 98.0 F 79 22 97/52 98 01/23/18 19:00 78 12 97/52 98 01/23/18 18:00 80 26 98/50 95 01/23/18 17:00 87 28 93/48 90 Intake and Output 01/24/18 01/24/18 01/24/18 07:59 15:59 23:59 Intake Total 200 / 200 100 / 100 Output Total 0 / 0 0 / 0 Balance 200 / 200 100 / 100 Intake: IV Fluids 200 / 200 100 / 100 Amiodarone Drip Premix 360mg/ 200 / 200 200mL 360 mg In 200 ml @ 0.5 MG /MIN 16.667 mls/hr IVC CONT [facility] Rx#:[id number] Zosyn 3.375 GM In 0.9 % Sodium 100 / 100 Chloride (Mini-Bag +) 100 ML @ 25 mls/hr IVPB Q12HR [facility] Rx#: [id number] Oral 0 / 0 0 / 0 Output: Urine 0 / 0 0 / 0 Other: Weight 56.3 kg Patient Weight 01/24/18 23:59 Weight 56.3 kg General appearance: cooperative, no acute distress, thin, no febrile - Head Head exam: Present: atraumatic - Respiratory Respiratory exam: Present: rhonchi, wheezes - Cardiovascular Cardiovascular exam: Present: irregular rhythm - GI/Abdominal GI/Abdominal exam: Present: hypoactive bowel sounds, soft. Absent: tenderness - Extremities Exam Extremities exam: Present: normal inspection. Absent: calf tenderness - Neurological Exam Neurological exam: Present: alert, oriented X3, no focal deficits, strengths equal and symetr throughout - Psychiatric Psychiatric exam: Present: depressed, flat affect Additional comments: withdrawn, not engaging in conversation - Skin Skin exam: Present: dry, intact, normal color, warm Oncology: Obj Data - Labs CBC & Chem 7: 01/25/18 04:11 01/25/18 04:11 - Impressions Impressions Abdomen/Pelvis CT 01/23/18 18:30 IMPRESSION: Suspected acute uncomplicated sigmoid colonic diverticulitis. Otherwise stable findings including innumerable bilobar hepatic metastases and 5.4 cm irregular infrarenal abdominal aortic aneurysm. See below. RECOMMENDATIONS: 5.4 cm AAA Recommend vascular consultation and follow-up every 6 months. Reference: J Vasc Surg 2009 May;50(4 Suppl):S2-49. D/ / Sharyn Cam Cha, MD / Sharyn Cam Cha, MD Interpreting Provider: Sharyn Cam Cha, MD Chest CT 01/23/18 18:30 IMPRESSION: Interval development of dense consolidation within both lower lobes most compatible with pneumonia. Also, there are innumerable mid and lower lung predominance centrilobular nodules likely infectious bronchiolitis. Anterior mid lung nodular density again identified, decreased in size. D/ / Sharyn Cam Cha, MD / Sharyn Cam Cha, MD Interpreting Provider: Sharyn Cam Cha, MD Head CT 01/23/18 18:30 IMPRESSION: No acute intracranial abnormality. D/ / Sathya Pang MD / Sathya Pang MD Interpreting Provider: Sathya Pang MD - ABG Interpretation ABG results: PT/INR, D-dimer PT 14.1 Seconds (9.4-12.1) H 01/23/18 20:20 D-Dimer 4276 ng/mLFEU (0-500) H 01/23/18 20:20 Consult Discharge Plan - Plan Referrals: Yonatan Aleman DO [Primary Care Provider] - 01/29/18 1:00 pm <Anne White - Last Filed: 01/25/18 13:23> Date of Encounter: 01/25/18 - Constitutional Vitals: Vital Signs Temp Pulse Resp BP Pulse Ox 01/25/18 12:00 97.6 F 98 18 119/60 93 01/25/18 11:00 101 18 122/70 94 01/25/18 10:36 17 94 01/25/18 10:25 98.5 F 115 22 121/64 94 01/25/18 10:10 98.5 F 89 20 122/73 92 01/25/18 10:00 92 22 122/73 94 01/25/18 09:14 18 97 06/21/18 09:00 98 20 101/64 97 01/25/18 08:00 89 24 107/64 94 01/25/18 07:30 98.5 F 01/25/18 07:00 102 20 89/64 92 01/25/18 06:00 85 16 107/54 96 01/25/18 05:00 92 15 100/57 96 01/25/18 04:19 18 94/52 97 01/25/18 04:00 98.4 F 94 16 94/52 95 01/25/18 03:30 94 01/25/18 03:00 96 19 100/61 95 01/25/18 02:00 80 15 106/60 95 01/25/18 01:00 87 17 99/57 96 01/25/18 00:00 92 11 100/56 96 01/24/18 23:55 98.1 F 01/24/18 23:30 89 01/24/18 23:00 87 11 94/50 97 01/24/18 22:42 18 104/58 97 01/24/18 22:00 84 12 102/60 97 01/24/18 21:22 96.6 F L 14 116/58 01/24/18 21:05 14 116/58 96 01/24/18 21:00 81 12 113/61 97 18 20:45 90/53 18 20:30 92/52 18 20:16 96.9 F L 01/24/18 20:15 93/53 18 20:04 96.9 F L 79 12 96/54 97 01/24/18 20:00 79 12 96/54 97 2018 19:45 91/56 18 19:30 79 92/57 18 19:15 95/55 18 19:00 77 15 94/54 97 18 18:45 92/55 18 18:30 95/54 18 18:25 97 F L 76 13 93/52 97 18 18:15 92/52 18 18:10 97 F L 74 12 91/49 96 01/24/18 18:00 97.3 F L 15 92/50 01/24/18 17:00 76 14 90/51 94 01/24/18 16:00 97.9 F 76 15 102/64 98 01/24/18 15:43 14 96 01/24/18 15:00 77 14 100/61 96 01/24/18 14:00 78 17 91/46 96 Intake and Output 01/24/18 01/25/18 01/25/18 23:59 07:59 15:59 Intake Total 1350 / 1350 0 / 0 300 / 300 Output Total 0 / 0 0 / 0 Balance 1350 / 1350 0 / 0 300 / 300 Intake: IV Fluids 400 / 400 300 / 300 Amiodarone Drip Premix 360mg/ 200 / 200 200 / 200 200mL 360 mg In 200 ml @ 0.5 MG /MIN 16.667 mls/hr IVC CONT [facility] Rx#:[id number] Zosyn 3.375 GM In 0.9 % Sodium 100 / 100 100 / 100 Chloride (Mini-Bag +) 100 ML @ 25 mls/hr IVPB Q12HR [facility] Rx#: [id number] Vancocin 500 MG In 0.9 % Sodium 100 / 100 Chloride (Mini-Bag +) 100 ML @ 100 mls/hr IVPB ONCE ONE Rx#: [id number] Oral 0 / 0 0 / 0 Blood Product 350 / 350 0 / 0 Platelet Pheresis Lp Irr 2nd 0 / 0 Unit [id number] Rbcs Leuko Poor As-1 Unit 350 / 350 [id number] Intake, Rinseback and Flushes 600 / 600 Output: Urine 0 / 0 0 / 0 Total Dialysis (HD) Output 0 / 0 Other: Weight 57.48 kg Hemodialysis Net Fluid Removed 0 (mL) Oncology: Obj Data - Labs CBC & Chem 7: 01/25/18 04:11 01/25/18 04:11 Labs: Laboratory Results - last 24 hr 01/24/18 01/25/18 01/25/18 16:30 04:11 04:11 WBC 7.3 RBC 2.73 L Hgb 8.4 L Hct 27.6 L MCV 101.1 H D MCH 30.8 MCHC 30.4 L RDW 17.1 H Plt Count 12 L* MPV 11.9 Immature Gran % 1.5 Seg Neutrophils % 94.4 Lymphocytes % 1.4 Monocytes % 2.6 Eosinophils % 0.0 Basophils % 0.1 Neutrophils # 6.9 Lymphocytes # 0.1 L Monocytes # 0.2 Eosinophils # 0.0 Basophils # 0.0 Nucleated RBCs/100 WBC 0.3 H Platelet Estimate Decreased L Immature Plt Fraction 8.2 H Sodium 143 Potassium 3.7 Chloride 98 Carbon Dioxide 31 H BUN 45 H Creatinine 3.03 H Est GFR ( Amer) 19 L Est GFR (Non-Af Amer) 15 L BUN/Creatinine Ratio 15 Glucose 99 Calculated Osmolality 308 H Calcium 9.2 Blood Type A NEGATIVE Antibody Screen NEGATIVE [place], Poly Interpret 1+ MTS Gel Crossmatch See Detail - ABG Interpretation ABG results: PT/INR, D-dimer PT 14.1 Seconds (9.4-12.1) H 01/23/18 20:20 D-Dimer 4276 ng/mLFEU (0-500) H 01/23/18 20:20 - Attending Attestation I examined this patient and my medical decision-making was reviewed with the Advanced Practice Nurse. I agree with the documented findings, disposition and treatment plan as described except to the extent set forth below. 1. Newly diagnosed metastatic Stage IV Small cell lung carcinoma s/p liver biopsy on 01/16/2018. Multiple metastasis Overall prognosis poor Her current creatinine has 3 and not a candidate for cisplatin. With her current condition chemotherapy can cause more harm than good. 2. Thrombocytopenia, multifactorial. Sepsis is playing a role. Also antibiotics including vancomycin may play a role. Currently she is off vancomycin. Currently on ampicillin/sulbactam 3. sepsis. Blood cultures growing Escherichia coli and intra-coccus
[2018-01-24] MEDS ORDERED: Vancomycin 500 MG in 0.9 % Sodium Chloride Mini Bag 100 ML IVPB ONE (18:00)
[2018-01-24] MEDS ORDERED: 0.9 % Sodium Chloride 250 ML ONE (18:02)
[2018-01-25] MEDS: *HR* Metoprolol 5 MG/5 ML VIAL IVP SCH ×4 (00:27→18:23)
[2018-01-25] MEDS: Ipratropium/Albuterol Neb 3 ML IH SCH ×4 (04:18→22:46)
[2018-01-25 04:25] LABS: Hemoglobin 8.4 g/dL (11.5-15.4)
[2018-01-25 04:27] LABS: Basophils % 0.1 %; Hematocrit 27.6 % (35.3-44.9); Immature Granulocytes % 1.5 % (0-4); Immature Platelets 8.2 % (1.1-6.1); Lymphocytes # 0.1 K/mcL (0.6-4.6); Lymphocytes % 1.4 %; Mean Corpuscular HGB Conc 30.4 g/dL (31.6-35.5); Mean Corpuscular Hemoglobin 30.8 pg (28.0-33.3); Mean Corpuscular Volume 101.1 fL (83.0-100.0); Mean Platelet Volume 11.9 fL (9.4-12.4); Monocytes # 0.2 K/mcL (0.0-1.3); Monocytes % 2.6 %; Neutrophils # 6.9 K/mcL (1.6-8.9); Nucleated Red Blood Cells 0.3 /100 WBC (0); Red Blood Count 2.73 M/mcL (3.82-4.97); Red Cell Distribution Width 17.1 % (11.5-14.5); Segmented Neutrophils % 94.4 %
[2018-01-25 04:32] LABS: Platelet Count 12 K/mcL (140-400)
[2018-01-25 04:51] LABS: Calcium 9.2 mg/dL (8.6-10.3); Potassium 3.7 mEq/L (3.5-5.1)
[2018-01-25 04:53] LABS: Platelet Estimate Decreased (Normal)
[2018-01-25] MEDS: Piperacillin/Tazobactam 3.375 GM in 0.9 % Sodium Chloride Mini Bag 100 ML IVPB SCH (05:35)
[2018-01-25] MEDS ORDERED: Aminoglycoside Consult 1 EACH MC ONE (07:26)
--- NOTE | 2018-01-25 08:08 | Pulmonology Progress Note ---
<DeandraAubrey M - Last Filed: 01/25/18 08:24> Date of Encounter: 01/25/18 Objective PUL Vital signs: Last Vital Signs Temp 98.5 F 01/25/18 07:30 Pulse 89 01/25/18 08:00 Resp 24 01/25/18 08:00 BP 107/64 01/25/18 08:00 Pulse Ox 94 01/25/18 08:00 Results - Laboratory Findings CBC and BMP: 01/25/18 04:11 01/25/18 04:11 PT/INR, D-dimer PT 14.1 Seconds (9.4-12.1) H 01/23/18 20:20 D-Dimer 4276 ng/mLFEU (0-500) H 01/23/18 20:20 Abnormal lab findings: Abnormal lab results RBC 2.73 M/mcL (3.82-4.97) L 01/25/18 04:11 Hgb 8.4 g/dL (11.5-15.4) L 01/25/18 04:11 Hct 27.6 % (35.3-44.9) L 01/25/18 04:11 MCV 101.1 fL (83.0-100.0) H D 01/25/18 04:11 MCHC 30.4 g/dL (31.6-35.5) L 01/25/18 04:11 RDW 17.1 % (11.5-14.5) H 01/25/18 04:11 Plt Count 12 K/mcL (140-400) L* 01/25/18 04:11 Metamyelocytes % 4.0 % (0) H 01/21/18 03:26 Myelocytes % 2.0 % (0) H 01/21/18 03:26 Lymphocytes # 0.1 K/mcL (0.6-4.6) L 01/25/18 04:11 Nucleated RBCs/100 WBC 0.3 /100 WBC (0) H 01/25/18 04:11 Platelet Estimate Decreased (Normal) L 01/25/18 04:11 Immature Plt Fraction 8.2 % (1.1-6.1) H 01/25/18 04:11 Poikilocytosis 1+ (Not Present) A 01/23/18 08:55 Anisocytosis 1+ (Not Present) A 01/24/18 03:49 Microcytosis Present (Not Present) A 01/21/18 03:26 Spherocytes 1+ (Not Present) A 01/23/18 08:55 Helmet Cells Present (Not Present) A 01/23/18 08:55 PT 14.1 Seconds (9.4-12.1) H 01/23/18 20:20 Fibrinogen 522 mg/dL (169-393) H 01/23/18 20:20 D-Dimer 4276 ng/mLFEU (0-500) H 01/23/18 20:20 Carbon Dioxide 31 mEq/L (23-29) H 01/25/18 04:11 BUN 45 mg/dL (8-23) H 01/25/18 04:11 Creatinine 3.03 mg/dL (0.60-1.20) H 01/25/18 04:11 Est GFR ( Amer) 19 (> 60) L 01/25/18 04:11 Est GFR (Non-Af Amer) 15 (> 60) L 01/25/18 04:11 POC Glucose 116 mg/dL (70-99) H 01/21/18 06:47 Calculated Osmolality 308 (280-300) H 01/25/18 04:11 Troponin I 3.72 ng/mL (< 0.04) H* 01/20/18 01:30 Enterobacteriac sp PCR DETECTED (Not Detect) A 01/21/18 07:45 Enterococcus sp PCR DETECTED (Not Detect) A 01/21/18 07:45 E. coli (PCR) DETECTED (Not Detect) A 01/21/18 07:45 - Microbiology Findings Microbiology Findings: Microbiology, Last 48 Hours 01/21/18 07:45 Blood Culture - Preliminary Peripheral Venipuncture Escherichia coli Gram Positive Cocci Gram Positive Cocci#2 - Clinical Findings Intake & Output: Intake & Output 01/24/18 01/25/18 01/25/18 23:59 07:59 15:59 Intake Total 1350 / 1350 0 / 0 Output Total 0 / 0 Balance 1350 / 1350 0 / 0 Weight 57.48 kg Consult Discharge Plan - Plan Referrals: Yonatan Aleman DO [Primary Care Provider] - 01/29/18 1:00 pm - Attending Attestation I examined this patient and my medical decision-making was reviewed with the Resident Physician. I agree with the documented findings, disposition and treatment plan as described except to the extent set forth below. Patient seen and examined. Labs, radiology, chart personally reviewed. 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 Again poor prognosis and she is at risk of deterioration and may need invasive mechanical ventilation. Cardiovascular: Patient continued to have episodes of SVTs. GI: Nutrition per dietary and GI prophylaxis per routine. Nutrition is been a problem since she continued to need noninvasive ventilation. Heme: DVT prophylaxis per routine. The thrombocytopenia is worsen and we will transfuse platelets. ID: Continue antibiotics and plan to de-escalation Renal; urine out put and renal funtion reviewed Endorcine: blood glucose is monitored Lines: all lines checked and no evidence of infections Skin: skin care to prevent pressure ulcers per nursing routine care Poor prognosis and palliative care follow-up. <Jose Pace - Last Filed: 01/25/18 17:32> Date of Encounter: 01/25/18 Time of Encounter: 09:00 Assessment and Plan (1) Goals of care, counseling/discussion Current Visit: Yes Status: Acute Patient switched from full code to DNR comfort care. Patient is alert and oriented 3. She is requesting to be transitioned out of the ICU and agreed for hospice care. Patient requested referral to [facility] hospice. Goal is to wean off aggressive medications this evening in preparation for transport home tomorrow afternoon. (2) Acute and chronic respiratory failure Current Visit: No Status: Acute Patient on BiPAP at 94% O2 saturation. Possible risk for invasive mechanical ventilation. Qualifiers: Respiratory failure complication: unspecified whether with hypoxia or hypercapnia Qualified Code(s): J96.20 - Acute and chronic respiratory failure , unspecified whether with hypoxia or hypercapnia (3) Hypotension Current Visit: Yes Status: Resolved Off pressor support. Blood pressure stable at 107/64. Qualifiers: Qualified Code(s): I95.9 - Hypotension, unspecified (4) NSTEMI (non-ST elevated myocardial infarction) Current Visit: Yes Status: Acute Troponin 7.09--> 4.40--> 3.72 EKG showed sinus tachycardia and LVH Cardiology recommends medical management, not a candidate for invasive therapies No further cardiac testing, per cardiology - Continue to hold heparin. (5) CAD (coronary artery disease) Current Visit: Yes Status: Chronic Qualifiers: Coronary Disease-Associated Artery/Lesion type: bypass graft [place] vs. transplanted heart: [place] heart Associated angina: without angina Qualified Code(s): I25.810 - Atherosclerosis of coronary artery bypass graft(s) without angina pectoris (6) ESRD (end stage renal disease) on dialysis Current Visit: Yes Status: Chronic Creatinine level decreased yesterday from 5.37 to 3.03. - Continue hemodialysis MWF schedule. (7) PAF (paroxysmal atrial fibrillation) Current Visit: Yes Status: Acute Continues to have SVTs. Rate is controlled. - Continue amiodarone and Lopressor withhold conditions for Lopressor of systolic blood pressure less than 100 or heart rate less than 100. - Continue continuous cardiac monitoring. - We will continue to withhold anticoagulation due to thrombus cytopenia. (8) Thrombocytopenia Current Visit: Yes Status: Chronic Platelet level dropped from 17-12 today. - transfuse with 1 unit of platelets. - Continue to monitor platelet levels. - Withhold any anticoagulation for now. (9) COPD exacerbation Current Visit: No Status: Acute - Continue current supportive care with BiPAP, bronchodilators, antibiotics, steroids. - Patient's respiratory status continues to decline and her multiple comorbid conditions put her at increased risk of clinical deterioration, which may eventually require invasive ventilation. (10) Metastases to the liver Current Visit: Yes Status: Chronic (11) DVT prophylaxis Current Visit: Yes Status: Acute Continue SCDs. Subjective Principal diagnosis: Syncope Interval history: Patient says that she wishes to go home and she understands the the implications of end of life care in her decision. She currently says her breathing is OK today. She admits to constant mild chest pain since her admission, which has not changed. She admits to nausea but denies any vomiting. She denies any fever or chills. She denies any abdominal pain. Objective PUL Vital signs: Last Vital Signs Temp 98.4 F 01/25/18 04:00 Pulse 102 01/25/18 07:00 Resp 20 01/25/18 07:00 BP 89/64 01/25/18 07:00 Pulse Ox 92 01/25/18 07:00 General appearance: no acute distress Eyes: nonicteric ENT: oropharynx moist Neck: supple Auscultation: bilateral: wheezes, rhonchi Cardiovascular: irregular rhythm, other (Palpitations) Gastrointestinal: normoactive bowel sounds, soft, non-tender, non-distended Integumentary: normal Extremities: no cyanosis, no edema, no clubbing, pulses normal, no ischemia or petechiae Musculoskeletal: no deformities normal mental status, other (Patient A&Ox3. ) mood appropriate, affect normal Results - Laboratory Findings CBC and BMP: 01/25/18 04:11 01/25/18 04:11 PT/INR, D-dimer PT 14.1 Seconds (9.4-12.1) H 01/23/18 20:20 D-Dimer 4276 ng/mLFEU (0-500) H 01/23/18 20:20 Abnormal lab findings: Abnormal lab results RBC 2.73 M/mcL (3.82-4.97) L 01/25/18 04:11 Hgb 8.4 g/dL (11.5-15.4) L 01/25/18 04:11 Hct 27.6 % (35.3-44.9) L 01/25/18 04:11 MCV 101.1 fL (83.0-100.0) H D 01/25/18 04:11 MCHC 30.4 g/dL (31.6-35.5) L 01/25/18 04:11 RDW 17.1 % (11.5-14.5) H 01/25/18 04:11 Plt Count 12 K/mcL (140-400) L* 01/25/18 04:11 Metamyelocytes % 4.0 % (0) H 01/21/18 03:26 Myelocytes % 2.0 % (0) H 01/21/18 03:26 Lymphocytes # 0.1 K/mcL (0.6-4.6) L 01/25/18 04:11 Nucleated RBCs/100 WBC 0.3 /100 WBC (0) H 01/25/18 04:11 Platelet Estimate Decreased (Normal) L 01/25/18 04:11 Immature Plt Fraction 8.2 % (1.1-6.1) H 01/25/18 04:11 Poikilocytosis 1+ (Not Present) A 01/23/18 08:55 Anisocytosis 1+ (Not Present) A 01/24/18 03:49 Microcytosis Present (Not Present) A 01/21/18 03:26 Spherocytes 1+ (Not Present) A 01/23/18 08:55 Helmet Cells Present (Not Present) A 01/23/18 08:55 PT 14.1 Seconds (9.4-12.1) H 01/23/18 20:20 Fibrinogen 522 mg/dL (169-393) H 01/23/18 20:20 D-Dimer 4276 ng/mLFEU (0-500) H 01/23/18 20:20 Carbon Dioxide 31 mEq/L (23-29) H 01/25/18 04:11 BUN 45 mg/dL (8-23) H 01/25/18 04:11 Creatinine 3.03 mg/dL (0.60-1.20) H 01/25/18 04:11 Est GFR ( Amer) 19 (> 60) L 01/25/18 04:11 Est GFR (Non-Af Amer) 15 (> 60) L 01/25/18 04:11 POC Glucose 116 mg/dL (70-99) H 01/21/18 06:47 Calculated Osmolality 308 (280-300) H 01/25/18 04:11 Troponin I 3.72 ng/mL (< 0.04) H* 01/20/18 01:30 Enterobacteriac sp PCR DETECTED (Not Detect) A 01/21/18 07:45 Enterococcus sp PCR DETECTED (Not Detect) A 01/21/18 07:45 E. coli (PCR) DETECTED (Not Detect) A 01/21/18 07:45 - Microbiology Findings Microbiology Findings: Microbiology, Last 48 Hours 01/21/18 07:45 Blood Culture - Preliminary Peripheral Venipuncture Escherichia coli Gram Positive Cocci Gram Positive Cocci#2 - Clinical Findings Intake & Output: Intake & Output 01/24/18 01/25/18 01/25/18 23:59 07:59 15:59 Intake Total 1350 / 1350 0 / 0 Output Total 0 / 0 Balance 1350 / 1350 0 / 0 Weight 57.48 kg - VTE Documentation of Mechanical Device: Intermittent pneumatic compression device
[2018-01-25] MEDS: Pantoprazole 40 MG VIAL IVP SCH (08:24)
[2018-01-25] MEDS: Levothyroxine Sodium 100 MCG VIAL IVP SCH (08:24)
[2018-01-25] MEDS: MethylPREDNISolone 40 MG/ML VIAL IVP SCH (08:25)
[2018-01-25] MEDS ORDERED: 0.9 % Sodium Chloride 250 ML ONE (08:31)
--- NOTE | 2018-01-25 08:50 | Nephrology Progress Note ---
Date of Encounter: 01/25/18 Time of Encounter: 08:00 - Assessment and Plan (1) End stage renal disease Current Visit: No Status: Chronic No HD today, keeping MWF schedule. Subjective Principal diagnosis: Syncope Interval history: Bipap. Nursing states desats readily without. Objective - Vital Signs Vital signs: Vital Signs Temp Pulse Resp BP Pulse Ox 01/25/18 08:00 89 24 107/64 94 01/25/18 07:30 98.5 F 01/25/18 07:00 102 20 89/64 92 01/25/18 06:00 85 16 107/54 96 01/25/18 05:00 92 15 100/57 96 01/25/18 04:19 18 94/52 97 01/25/18 04:00 98.4 F 94 16 94/52 95 01/25/18 03:30 94 01/25/18 03:00 96 19 100/61 95 01/25/18 02:00 80 15 106/60 95 01/25/18 01:00 87 17 99/57 96 01/25/18 00:00 92 11 100/56 96 01/24/18 23:55 98.1 F 01/24/18 23:30 89 01/24/18 23:00 87 11 94/50 97 01/24/18 22:42 18 104/58 97 01/24/18 22:00 84 12 102/60 97 01/24/18 21:22 96.6 F L 14 116/58 01/24/18 21:05 14 116/58 96 01/24/18 21:00 81 12 113/61 97 01/24/18 20:45 90/53 01/24/18 20:30 92/52 01/24/18 20:16 96.9 F L 01/24/18 20:15 93/53 01/24/18 20:04 96.9 F L 79 12 96/54 97 01/24/18 20:00 79 12 96/54 97 01/24/18 19:45 91/56 01/24/18 19:30 79 92/57 01/24/18 19:15 95/55 01/24/18 19:00 77 15 94/54 97 01/24/18 18:45 92/55 01/24/18 18:30 95/54 06/20/18 18:25 97 F L 76 13 93/52 97 01/24/18 18:15 92/52 01/24/18 18:10 97 F L 74 12 91/49 96 01/24/18 18:00 97.3 F L 15 92/50 01/24/18 17:00 76 14 90/51 94 01/24/18 16:00 97.9 F 76 15 102/64 98 01/24/18 15:43 14 96 01/24/18 15:00 77 14 100/61 96 01/24/18 14:00 78 17 91/46 96 01/24/18 13:00 75 15 83/55 95 01/24/18 12:00 97.8 F 74 17 106/55 98 01/24/18 11:20 82 01/24/18 11:00 76 13 105/59 97 01/24/18 10:23 18 95 01/24/18 10:00 76 17 113/62 96 01/24/18 09:00 79 12 110/62 96 Intake and Output 01/24/18 01/25/18 01/25/18 23:59 07:59 15:59 Intake Total 1350 / 1350 0 / 0 Output Total 0 / 0 Balance 1350 / 1350 0 / 0 Intake: IV Fluids 400 / 400 Amiodarone Drip Premix 360mg/ 200 / 200 200mL 360 mg In 200 ml @ 0.5 MG /MIN 16.667 mls/hr IVC CONT [facility] Rx#:[id number] Zosyn 3.375 GM In 0.9 % Sodium 100 / 100 Chloride (Mini-Bag +) 100 ML @ 25 mls/hr IVPB Q12HR [facility] Rx#: [id number] Vancocin 500 MG In 0.9 % Sodium 100 / 100 Chloride (Mini-Bag +) 100 ML @ 100 mls/hr IVPB ONCE ONE Rx#: [id number] Oral 0 / 0 0 / 0 Blood Product 350 / 350 Rbcs Leuko Poor As-1 Unit 350 / 350 [id number] Intake, Rinseback and Flushes 600 / 600 Output: Urine 0 / 0 Total Dialysis (HD) Output 0 / 0 Other: Weight 57.48 kg Hemodialysis Net Fluid Removed 0 (mL) - General Appearance General appearance: Present: well-developed, appears started age, chronically ill EENT: Present: mucous membranes moist Neck: Present: no JVD Respiratory: Present: wheezing, rhonchi Cardiology: Present: no edema, regular rate, regular rhythm Dialysis Vascular Access: Arteriovenous Fistula Gastrointestinal: Present: hypoactive bowel sounds, no tenderness Integumentary: Present: warm and dry Neurologic: Present: alert and oriented x3 - Lab 01/25/18 04:11 01/25/18 04:11 Most recent lab results Calcium 9.2 mg/dL (8.6-10.3) 01/25/18 04:11 Magnesium 1.8 mg/dL (1.6-2.6) 01/21/18 03:26 - VTE Documentation of Mechanical Device: Intermittent pneumatic compression device Consult Discharge Plan - Plan Referrals: Yonatan Aleman DO [Primary Care Provider] - 01/29/18 1:00 pm
[2018-01-25] MEDS: Amiodarone Premix 360 MG/200 ML BAG IVC SCH (09:51)
--- NOTE | 2018-01-25 09:53 | Palliative Progress Note ---
Date of Encounter: 01/25/18 Time of Encounter: 09:50 - Assessment and plan (1) Generalized pain Current Visit: Yes Status: Acute Assessment and plan: She has Oxycodone available if needed. Has not utilized in the last 24 hours. Monitor (2) Counseling regarding advanced care planning and goals of care Current Visit: Yes Status: Acute Assessment and plan: Patient has made statements today that she wants to go home. I visited and attempted to discuss with her with primary nurse Daryl harris. Patient was taken off bipap for conversation. She is more alert today. Patient understands that she is critically ill and has metastatic cancer and she is too sick to treat this. Informed her this would eventually cause her to pass away. Discussed that if she truly wants to go home, then we would transition to comfort care only , and treat her symptoms with medications at home, with the help of hospice care. She then quit responding and kept eyes closed. Attempted to discuss not doing heroic measures, (CPR,ventilator) as this would not add to her comfort and cause her pain and suffering. She would not respond again and kept eyes closed, appeared she was getting frustrated with me. I again tried to speak with her, and she told me "Stop!". Told her I would give her time to consider, that we only wanted to know her wishes, and that her children need to know her wishes as well. She did respond that she would speak with her children when they arrive. Primary nurse kimberly for this conversation. I did speak with daughter, Pennie, who states that family will be in later today sometime and will speak with her. (3) Metastatic lung carcinoma Current Visit: Yes Status: Acute Qualifiers: Laterality: unspecified laterality Qualified Code(s): C78.00 - Secondary malignant neoplasm of unspecified lung (4) Acute and chronic respiratory failure Current Visit: Yes Status: Acute Qualifiers: Respiratory failure complication: hypoxia and hypercapnia Qualified Code(s) : J96.21 - Acute and chronic respiratory failure with hypoxia; J96.22 - Acute and chronic respiratory failure with hypercapnia (5) COPD exacerbation Current Visit: Yes Status: Acute (6) ESRD (end stage renal disease) Current Visit: Yes Status: Acute Assessment and plan: Nephrology following - Time Spent With Patient Total time spent is greater than 50% in coordination of care (as documented) at patient's floor/unit and/or counseling patient: - Subjective Interval history: Patient has been verbal this am to primary nurse stating she wants to go home. More alert. Appears she tolerated dialysis yesterday. Remains thrombocytopenic. On bipap on my arrival. Vitals stable at this point, remains on amiodarone drip. - Constitutional Vitals: Abnormal lab results RBC 2.73 M/mcL (3.82-4.97) L 01/25/18 04:11 Hgb 8.4 g/dL (11.5-15.4) L 01/25/18 04:11 Hct 27.6 % (35.3-44.9) L 01/25/18 04:11 MCV 101.1 fL (83.0-100.0) H D 01/25/18 04:11 MCHC 30.4 g/dL (31.6-35.5) L 01/25/18 04:11 RDW 17.1 % (11.5-14.5) H 01/25/18 04:11 Plt Count 12 K/mcL (140-400) L* 01/25/18 04:11 Metamyelocytes % 4.0 % (0) H 01/21/18 03:26 Myelocytes % 2.0 % (0) H 01/21/18 03:26 Lymphocytes # 0.1 K/mcL (0.6-4.6) L 01/25/18 04:11 Nucleated RBCs/100 WBC 0.3 /100 WBC (0) H 01/25/18 04:11 Platelet Estimate Decreased (Normal) L 01/25/18 04:11 Immature Plt Fraction 8.2 % (1.1-6.1) H 01/25/18 04:11 Poikilocytosis 1+ (Not Present) A 01/23/18 08:55 Anisocytosis 1+ (Not Present) A 01/24/18 03:49 Microcytosis Present (Not Present) A 01/21/18 03:26 Spherocytes 1+ (Not Present) A 01/23/18 08:55 Helmet Cells Present (Not Present) A 01/23/18 08:55 PT 14.1 Seconds (9.4-12.1) H 01/23/18 20:20 Fibrinogen 522 mg/dL (169-393) H 01/23/18 20:20 D-Dimer 4276 ng/mLFEU (0-500) H 01/23/18 20:20 Carbon Dioxide 31 mEq/L (23-29) H 01/25/18 04:11 BUN 45 mg/dL (8-23) H 01/25/18 04:11 Creatinine 3.03 mg/dL (0.60-1.20) H 01/25/18 04:11 Est GFR ( Amer) 19 (> 60) L 01/25/18 04:11 Est GFR (Non-Af Amer) 15 (> 60) L 01/25/18 04:11 POC Glucose 116 mg/dL (70-99) H 01/21/18 06:47 Calculated Osmolality 308 (280-300) H 01/25/18 04:11 Troponin I 3.72 ng/mL (< 0.04) H* 01/20/18 01:30 Enterobacteriac sp PCR DETECTED (Not Detect) A 01/21/18 07:45 Enterococcus sp PCR DETECTED (Not Detect) A 01/21/18 07:45 E. coli (PCR) DETECTED (Not Detect) A 01/21/18 07:45 General appearance: Present: no acute distress - Respiratory Additional comments: Wheezes/rhonchi throughout anterior lung [place]ward - Cardiovascular Cardiovascular exam: Present: irregular rhythm - GI/Abdominal GI/Abdominal exam: Present: diminished bowel sounds, soft - Extremities Exam Extremities exam: Present: normal capillary refill, normal inspection - Neurological Exam Neurological exam: Present: alert, oriented X3, strengths equal and symetr throughout - Skin Skin exam: Present: dry, pallor, warm Palliative Quality Palliative Quality: Screen for Code Status: Yes, Screen for Goals of Care: Yes, Screen for Pain: Yes, If Pain Regimen Started, Initiate Bowel Regimen: Yes, Screen for Nausea/Vomitting: Yes Code Status: 01/18/18 22:19 Resuscitation Status: Active [RES] Routine Comment: Resuscitation Status: Full Code - Labs CBC & Chem 7: 01/25/18 04:11 01/25/18 04:11 Labs: Laboratory Results - last 24 hr 01/24/18 01/25/18 01/25/18 16:30 04:11 04:11 WBC 7.3 RBC 2.73 L Hgb 8.4 L Hct 27.6 L MCV 101.1 H D MCH 30.8 MCHC 30.4 L RDW 17.1 H Plt Count 12 L* MPV 11.9 Immature Gran % 1.5 Seg Neutrophils % 94.4 Lymphocytes % 1.4 Monocytes % 2.6 Eosinophils % 0.0 Basophils % 0.1 Neutrophils # 6.9 Lymphocytes # 0.1 L Monocytes # 0.2 Eosinophils # 0.0 Basophils # 0.0 Nucleated RBCs/100 WBC 0.3 H Platelet Estimate Decreased L Immature Plt Fraction 8.2 H Sodium 143 Potassium 3.7 Chloride 98 Carbon Dioxide 31 H BUN 45 H Creatinine 3.03 H Est GFR ( Amer) 19 L Est GFR (Non-Af Amer) 15 L BUN/Creatinine Ratio 15 Glucose 99 Calculated Osmolality 308 H Calcium 9.2 Blood Type A NEGATIVE Antibody Screen NEGATIVE MTS Gel Crossmatch See Detail - ABG Interpretation ABG results: PT/INR, D-dimer PT 14.1 Seconds (9.4-12.1) H 01/23/18 20:20 D-Dimer 4276 ng/mLFEU (0-500) H 01/23/18 20:20 Consult Discharge Plan - Plan Referrals: Yonatan Aleman DO [Primary Care Provider] - 01/29/18 1:00 pm
[2018-01-25] MEDS: Budesonide/Formoterol 80/4.5 MDI IH SCH ×2 (10:34→22:47)
[2018-01-25] MEDS ORDERED: *HR* LORazepam Oral Conc 2 MG/ML SL PRN (16:34)
[2018-01-25] MEDS: OXYCODONE Oral CONC 10 MG/0.5 ML ORAL.SYG SL PRN ×2 (17:02→21:57)
[2018-01-25] MEDS: Ampicillin/Sulbactam 1,500 MG in 0.9 % Sodium Chloride Mini Bag 100 ML IVPB SCH (18:23)
[2018-01-26] MEDS: *HR* Metoprolol 5 MG/5 ML VIAL IVP SCH ×3 (00:05→14:22)
[2018-01-26] MEDS: Ipratropium/Albuterol Neb 3 ML IH SCH ×3 (04:06→15:21)
[2018-01-26] MEDS: Ampicillin/Sulbactam 1,500 MG in 0.9 % Sodium Chloride Mini Bag 100 ML IVPB SCH (05:59)
[2018-01-26 07:02] VITALS: BP 111/61
[2018-01-26] MEDS: Pantoprazole 40 MG VIAL IVP SCH (07:16)
[2018-01-26] MEDS: Levothyroxine Sodium 100 MCG VIAL IVP SCH (07:17)
[2018-01-26] MEDS: OXYCODONE Oral CONC 10 MG/0.5 ML ORAL.SYG SL PRN (07:17)
[2018-01-26] MEDS: MethylPREDNISolone 40 MG/ML VIAL IVP SCH (07:17)
--- NOTE | 2018-01-26 08:30 | Event Note ---
Date of Encounter: 01/26/18 Time of Encounter: 08:29 The patient is being discharged home with hospice. She will no longer be receiving dialysis. Nephrology will sign off.
--- NOTE | 2018-01-26 09:29 | Palliative Progress Note ---
Date of Encounter: 01/26/18 Time of Encounter: 09:25 - Assessment and plan (1) Generalized pain Current Visit: Yes Status: Acute Assessment and plan: Patient has utilized Oxycodone x3 last 24 hours. MOnitor and titrate as needed. I explained to pt this may help with shortness of breath as well as discomfort. (2) Counseling regarding advanced care planning and goals of care Current Visit: Yes Status: Acute Assessment and plan: I have not heard from family yet this am. She still desires to go home. All referral information faxed to [facility] late last pm - they will be in sometime this am, and will be contacting family. D/W resident - will be following closely throughout the day and assisting with dc as needed. Once I hear from [facility], I will complete prescriptions for her comfort medications. (3) Metastatic lung carcinoma Current Visit: Yes Status: Acute Qualifiers: Laterality: unspecified laterality Qualified Code(s): C78.00 - Secondary malignant neoplasm of unspecified lung (4) Acute and chronic respiratory failure Current Visit: Yes Status: Acute Qualifiers: Respiratory failure complication: hypoxia and hypercapnia Qualified Code(s) : J96.21 - Acute and chronic respiratory failure with hypoxia; J96.22 - Acute and chronic respiratory failure with hypercapnia (5) COPD exacerbation Current Visit: Yes Status: Acute (6) ESRD (end stage renal disease) Current Visit: Yes Status: Acute - Time Spent With Patient Total time spent is greater than 50% in coordination of care (as documented) at patient's floor/unit and/or counseling patient: 25 - 35 minutes - Subjective Interval history: Patient appears weaker today, alert, and nodding head to questions. Denies pain or discomfort. Refusing anything oral. Still indicates she wants to go home today. - Constitutional Vitals: Abnormal lab results RBC 2.73 M/mcL (3.82-4.97) L 01/25/18 04:11 Hgb 8.4 g/dL (11.5-15.4) L 01/25/18 04:11 Hct 27.6 % (35.3-44.9) L 01/25/18 04:11 MCV 101.1 fL (83.0-100.0) H D 01/25/18 04:11 MCHC 30.4 g/dL (31.6-35.5) L 01/25/18 04:11 RDW 17.1 % (11.5-14.5) H 01/25/18 04:11 Plt Count 12 K/mcL (140-400) L* 01/25/18 04:11 Metamyelocytes % 4.0 % (0) H 01/21/18 03:26 Myelocytes % 2.0 % (0) H 01/21/18 03:26 Lymphocytes # 0.1 K/mcL (0.6-4.6) L 01/25/18 04:11 Nucleated RBCs/100 WBC 0.3 /100 WBC (0) H 01/25/18 04:11 Platelet Estimate Decreased (Normal) L 01/25/18 04:11 Immature Plt Fraction 8.2 % (1.1-6.1) H 01/25/18 04:11 Poikilocytosis 1+ (Not Present) A 01/23/18 08:55 Anisocytosis 1+ (Not Present) A 01/24/18 03:49 Microcytosis Present (Not Present) A 01/21/18 03:26 Spherocytes 1+ (Not Present) A 01/23/18 08:55 Helmet Cells Present (Not Present) A 01/23/18 08:55 PT 14.1 Seconds (9.4-12.1) H 01/23/18 20:20 Fibrinogen 522 mg/dL (169-393) H 01/23/18 20:20 D-Dimer 4276 ng/mLFEU (0-500) H 01/23/18 20:20 Carbon Dioxide 31 mEq/L (23-29) H 01/25/18 04:11 BUN 45 mg/dL (8-23) H 01/25/18 04:11 Creatinine 3.03 mg/dL (0.60-1.20) H 01/25/18 04:11 Est GFR ( Amer) 19 (> 60) L 01/25/18 04:11 Est GFR (Non-Af Amer) 15 (> 60) L 01/25/18 04:11 POC Glucose 116 mg/dL (70-99) H 01/21/18 06:47 Calculated Osmolality 308 (280-300) H 01/25/18 04:11 Lactate Dehydrogenase 394 Units/L (140-271) H 01/25/18 11:34 Troponin I 3.72 ng/mL (< 0.04) H* 01/20/18 01:30 Enterobacteriac sp PCR DETECTED (Not Detect) A 01/21/18 07:45 Enterococcus sp PCR DETECTED (Not Detect) A 01/21/18 07:45 E. coli (PCR) DETECTED (Not Detect) A 01/21/18 07:45 Direct Antiglob Test 1+ (Negative) A 01/24/18 16:30 General appearance: Present: no acute distress - Respiratory Additional comments: Course rhonchi/wheezes throughout anterior chest - Cardiovascular Cardiovascular exam: Present: irregular rhythm - GI/Abdominal GI/Abdominal exam: Present: normal bowel sounds, soft - Extremities Exam Additional comments: Generalized edema - Neurological Exam Neurological exam: Present: alert Additional comments: Nonverbal this am, nods head to questions - Skin Skin exam: Present: dry, warm Palliative Quality Palliative Quality: Screen for Code Status: Yes, Screen for Goals of Care: Yes, Screen for Pain: Yes, If Pain Regimen Started, Initiate Bowel Regimen: Yes, Screen for Nausea/Vomitting: Yes Code Status: 01/18/18 22:19 Resuscitation Status: Active [RES] Routine Comment: Resuscitation Status: Full Code 01/25/18 16:31 DNR [Resuscitation Status: Active] [RES] Routine Comment: Resuscitation Status: DNR-Comfort Care - Labs CBC & Chem 7: 01/25/18 04:11 01/25/18 04:11 Labs: Laboratory Results - last 24 hr 01/24/18 01/25/18 16:30 11:34 Lactate Dehydrogenase 394 H Blood Type A NEGATIVE Antibody Screen NEGATIVE Direct Antiglob Test 1+ A MAINE, Poly Interpret 1+ MTS Gel Crossmatch See Detail - ABG Interpretation ABG results: PT/INR, D-dimer PT 14.1 Seconds (9.4-12.1) H 01/23/18 20:20 D-Dimer 4276 ng/mLFEU (0-500) H 01/23/18 20:20 Consult Discharge Plan - Plan Referrals: Yonatan Aleman DO [Primary Care Provider] - 01/29/18 1:00 pm
--- NOTE | 2018-01-26 09:50 | Discharge Summary ---
<Jose Pace - Last Filed: 01/26/18 11:49> Orders not resulted at time of discharge: Pending orders 01/20/18 08:00 EKG [ECG 12 lead ECG] [ECG] Stat 01/21/18 07:06 Culture,Sputum with Gram Stain [RM] Stat 01/21/18 07:45 Culture,Blood [BC] Stat Culture,Blood,Additional [BC] Stat 01/24/18 16:30 Poly MAINE With Reflex to IgG [BBK] Stat Red Blood Cells [BBK] Stat Type and Screen [BBK] Stat 01/25/18 07:48 Platelets [BBK] Stat Date of Encounter: 01/26/18 Time of Encounter: 10:30 - Discharge Diagnosis (1) Acute and chronic respiratory failure Priority: Primary Status: Acute Qualifiers: Respiratory failure complication: unspecified whether with hypoxia or hypercapnia Qualified Code(s): J96.20 - Acute and chronic respiratory failure , unspecified whether with hypoxia or hypercapnia (2) Hypotension Priority: Primary Status: Resolved Qualifiers: Qualified Code(s): I95.9 - Hypotension, unspecified (3) NSTEMI (non-ST elevated myocardial infarction) Priority: Secondary Status: Acute (4) CAD (coronary artery disease) Priority: Secondary Status: Chronic Qualifiers: Coronary Disease-Associated Artery/Lesion type: bypass graft [place] vs. transplanted heart: [place] heart Associated angina: without angina Qualified Code(s): I25.810 - Atherosclerosis of coronary artery bypass graft(s) without angina pectoris (5) ESRD (end stage renal disease) on dialysis Priority: Primary Status: Chronic (6) PAF (paroxysmal atrial fibrillation) Priority: Primary Status: Acute (7) Thrombocytopenia Priority: Secondary Status: Chronic (8) COPD exacerbation Priority: Primary Status: Acute (9) Metastases to the liver Priority: Secondary Status: Chronic - Discharge Medications Prescriptions: Hyoscyamine SL [Levsin SL] 0.125 mg SL Q6H PRN #30 tab.subl PRN Reason: upper airway secretions LORazepam Oral Conc [Ativan Oral Conc] 1 mg PO Q4H PRN 7 Days #30 mls PRN Reason: Anxiety OXYCODONE Oral CONC [Oxycodone Oral Conc] 10 mg PO Q2H PRN 7 Days #30 oral.syg PRN Reason: pain/shortness of breath Home Medications: Atorvastatin [Lipitor] 40 mg PO HS 06/02/15 [History] Levothyroxine [Synthroid] 200 mcg PO QAM 06/02/15 [History] OxyCODONE Immed Rel [Roxicodone 10 MG] 10 mg PO Q6H PRN 06/02/15 [History] Docusate [Colace] 100 mg PO BID PRN 09/22/15 [History] B Complex with Vitamin C [[place] with C] 1 tab PO DAILY 02/22/16 [History] Sevelamer [Renvela] 1,600 mg PO TIDWM 08/29/16 [History] Fluticasone/Salmeterol [Advair Hfa 115-21 Mcg Inhaler] 2 puff IH BID 11/14/16 [ History] Ipratropium/Albuterol Neb [Duoneb] 3 ml IH QID PRN 11/14/16 [History] Renal Vitamin [Renal Caps Softgel] 1 mg PO DAILY 11/14/16 [History] Umeclidinium [place] [Incruse Ellipta] 62.5 mcg IH DAILY 11/12/17 [History] Albuterol Sulfate [Proair Hfa] 2 puff IH Q4-6H PRN 01/10/18 [History] Citalopram Hydrobromide [Celexa] 20 mg PO DAILY 01/10/18 [History] Folic Acid 1 mg PO DAILY 01/10/18 [History] Omeprazole [PriLOSEC] 40 mg PO DAILY 01/10/18 [History] Metoprolol [Lopressor] 25 mg PO BID #60 tablet 01/17/18 [Rx] hydrALAZINE [HydrALAZINE] 25 mg PO TID #90 tablet 01/17/18 [Rx] Hyoscyamine SL [Levsin SL] 0.125 mg SL Q6H PRN #30 tab.subl 01/26/18 [Rx] LORazepam Oral Conc [Ativan Oral Conc] 1 mg PO Q4H PRN 7 Days #30 mls 01/26/18 [ Rx] OXYCODONE Oral CONC [Oxycodone Oral Conc] 10 mg PO Q2H PRN 7 Days #30 oral.syg 01/26/18 [Rx] Allergies/Adverse Reactions: 3 Allergy/AdvReac Type Severity Reaction Status Date / Time ceftriaxone [From Rocephin] Allergy Hives Verified 01/09/18 21:52 levofloxacin [From Levaquin] Allergy Hives Verified 01/09/18 21:52 Labs on day of discharge: Labs from last 24 hours 01/25/18 01/24/18 11:34 16:30 Lactate Dehydrogenase 394 H Blood Type A NEGATIVE Antibody Screen NEGATIVE Direct Antiglob Test 1+ A MAINE, Poly Interpret 1+ MTS Gel Crossmatch See Detail Preliminary micro results at discharge 01/21/18 07:45 Blood Culture - Preliminary Peripheral Venipuncture Escherichia coli Enterococcus faecalis Enterococcus avium 01/21/18 07:45 Blood Culture - Preliminary Peripheral Venipuncture Gram Negative Bandar - Impressions ITS Impressions Chest X-Ray 01/20/18 09:05 IMPRESSION: 1. Interval development of multilobar airspace opacities. In the proper clinical setting, finding would be compatible with pneumonia. 2. Stable mild enlargement of the cardiac silhouette. D/ / 01/20/2018 11:21:25 Galo Holbrook MD / vidal Interpreting Provider: Galo Holbrook MD X-Ray 01/20/18 09:09 IMPRESSION: Nonobstructive bowel gas pattern. Bilateral nephrolithiasis as seen on recent CT. D/ / Dilip Hester MD / Dilip Hester MD Interpreting Provider: Dilip Hester MD Chest X-Ray 01/21/18 06:40 IMPRESSION: Decreased right basilar opacities may in part reflect fluctuating atelectasis however residual basilar opacities may reflect airspace disease such as pneumonia or aspiration. Suspect background of mild edema. Question small right effusion. D/ / Nadeem Jimenes / Nadeem Jimenes Interpreting Provider: Nadeem Jimenes Abdomen/Pelvis CT 01/23/18 18:30 IMPRESSION: Suspected acute uncomplicated sigmoid colonic diverticulitis. Otherwise stable findings including innumerable bilobar hepatic metastases and 5.4 cm irregular infrarenal abdominal aortic aneurysm. See below. RECOMMENDATIONS: 5.4 cm AAA Recommend vascular consultation and follow-up every 6 months. Reference: J Vasc Surg 2009 May;50(4 Suppl):S2-49. D/ / Sharyn Cam Cha, MD / Sharyn Cam Cha, MD Interpreting Provider: Sharyn Cam Cha, MD Chest CT 01/23/18 18:30 IMPRESSION: Interval development of dense consolidation within both lower lobes most compatible with pneumonia. Also, there are innumerable mid and lower lung predominance centrilobular nodules likely infectious bronchiolitis. Anterior mid lung nodular density again identified, decreased in size. D/ / Sharyn Cam Cha, MD / Sharyn Cam Cha, MD Interpreting Provider: Sharyn Cam Cha, MD Head CT 01/23/18 18:30 IMPRESSION: No acute intracranial abnormality. D/ / Sathya Pang MD / Sathya Pang MD Interpreting Provider: Sathya Pang MD Date of admission: 01/18/18 19:28 Primary care physician: Yonatan Aleman, Consults: 01/19/18 02:42 Consult to Cardiology [CONS] Routine Comment: Consulting Provider: Cardiology Kriss Reason for Consult: NSTEMI Call Completed: Yes 01/19/18 07:45 Consult to Nephrology [CONS] Routine Consulting Provider: [facility] Jesus HAMMOND Reason for Consult: ESRD patient on HD Call Completed: Yes 01/19/18 09:09 Consult to Nurse Navigator [CONS] Routine Comment: 01/19/18 10:30 Consult to Dialysis [CONS] ONCE 01/20/18 09:12 Consult to Pulmonology [CONS] Routine Consulting Provider: [facility] Reason for Consult: ICU management; HYpotension and rapid afib Time Notified: 09:13 Call Completed: Yes 01/22/18 09:30 Consult to Dialysis [CONS] ONCE 01/22/18 09:44 Consult to Palliative Care [CONS] Routine Comment: Consulting Provider: Palliative Care Kriss Reason for Consult: metastatic lung cancer and multiple admissions Call Completed: No 01/22/18 14:43 Consult to Oncology [CONS] Routine Consulting Provider: [facility] Reason for Consult: small cell lung cancer, multiple comorbid conditions Time Notified: 14:40 Call Completed: Yes 01/24/18 11:45 Consult to Dialysis [CONS] ONCE Discharging clinician: Jose Pace (Attending: Dr. Beck) Anticipated date of discharge: 01/26/18 - Patient Status Disposition: Hospice - Home Condition: Fair Functional capacity at discharge: wheelchair bound Overall status at discharge: patient is not back to baseline - Discharge Instructions Follow Up With: Yonatan Aleman DO [Primary Care Provider] - 01/29/18 1:00 pm - Diet and Activity Activity: increase activity as tolerated, wear oxygen at all times Diet: other (Soft diet) - Hospital Course Hospital course: Ms. Orellana is a 67 year old female with a past medical history of HTN, HLD, former smoker, lung cancer with liver mets, COPD with chronic respiratory failure on 4 L NC of oxygen, ESRD-HD M/W/F, medical non-compliance to dialysis, CHF, CAD s/p CABG, ruptured aneurysm of thoracoabdominal aorta, bilateral carotid artery stenosis, gastric ulcer/GI bleed, Hx of severe bilateral mastoiditis (seen on MRI brain 01/02/2016) that presented to the ED on 01/18/18 for syncopal event. Patient was at [facility] when she had a syncopal event. EMS arrived and found the patient to be pulseless and initiated chest compressions. Afterwards patient went into V. fib and was cardioverted and brought to [place] ER. According to daughter patient had missed her hemodialysis the week prior. Patient presented with a STEMI but due to current situation of lung cancer with metastases to liver, bone metastasis, and thrombocytopenia that medical management was recommended rather than any acute intervention. Patient was placed on heparin drip and started on aspirin and statin and beta blockers. Nephrology was consulted for her ESRD and patient was placed on hemodialysis. Patient was eventually brought to the ER today due to hypotensive illness and paroxysmal atrial fibrillation. Patient presented with acute on chronic respiratory failure secondary to COPD exacerbation and pneumonia complicated by underlying hydrostatic pulomary edema. She was put on zosyn and vancomycin. Patient was not intubated due to having acceptable O2 saturation throughout her stay on noninvasive ventilation with bronchdilator therapy and not being an ideal candidate for intubation. Patient with multiple co-morbidities at their terminal stage. While here she was undergoing scheduled hemodialysis for her ESRD. She was put on IV steroids along with bronchodilators for her COPD exacerbation. Patient had poor prognosis and as a result palliative care was brought on board to discuss hospice care. Code- status was changed to DNRCC. Patient has requested to be sent home with [place] [facility]. [facility] has been contacted to come meet with family to discuss transition of care. When seen today, patient was alert and oriented x 3. She denied any chest pain. Says her breathing has improved since yesterday. Denies any nausea, vomiting, or abdominal pain. Denies any fever or chills. - Time Spent with Patient Total time spent providing and/or coordinating discharge services: Greater than 30 minutes Physical Examination Vital Signs: Vital Signs, Last 4 Hours Temp Pulse Resp BP Pulse Ox 01/26/18 07:00 96.4 F L 98 22 111/61 98 General appearance: no acute distress Eyes: nonicteric ENT: oropharynx moist Neck: supple Effort: normal Inspection: normal Auscultation: bilateral: rhonchi Cardiovascular: irregular rhythm Gastrointestinal: normoactive bowel sounds, soft, tender (Minor diffuse tenderness with deep palpation), non-distended Integumentary: normal Extremities: no cyanosis, no edema, no clubbing, pulses normal Musculoskeletal: no deformities normal mental status mood appropriate, affect normal - VTE Documentation of Mechanical Device: Intermittent pneumatic compression device <Aubrey Liriano - Last Filed: 01/26/18 16:08> Orders not resulted at time of discharge: Pending orders 01/20/18 08:00 EKG [ECG 12 lead ECG] [ECG] Stat 01/21/18 07:06 Culture,Sputum with Gram Stain [RM] Stat 01/21/18 07:45 Culture,Blood [BC] Stat Culture,Blood,Additional [BC] Stat 01/24/18 16:30 Poly MAINE With Reflex to IgG [BBK] Stat Red Blood Cells [BBK] Stat Type and Screen [BBK] Stat 01/25/18 07:48 Platelets [BBK] Stat Date of Encounter: 01/26/18 Labs on day of discharge: Preliminary micro results at discharge 01/21/18 07:45 Blood Culture - Preliminary Peripheral Venipuncture Escherichia coli Enterococcus faecalis Enterococcus avium 01/21/18 07:45 Blood Culture - Preliminary Peripheral Venipuncture Gram Negative Bandar - Impressions ITS Impressions Chest X-Ray 01/20/18 09:05 IMPRESSION: 1. Interval development of multilobar airspace opacities. In the proper clinical setting, finding would be compatible with pneumonia. 2. Stable mild enlargement of the cardiac silhouette. D/ / 01/20/2018 11:21:25 Galo Holbrook MD / vidal Interpreting Provider: Glao Holbrook MD X-Ray 01/20/18 09:09 IMPRESSION: Nonobstructive bowel gas pattern. Bilateral nephrolithiasis as seen on recent CT. D/ / Dilip Hester MD / Dilip Hester MD Interpreting Provider: Dilip Hester MD Chest X-Ray 01/21/18 06:40 IMPRESSION: Decreased right basilar opacities may in part reflect fluctuating atelectasis however residual basilar opacities may reflect airspace disease such as pneumonia or aspiration. Suspect background of mild edema. Question small right effusion. D/ / Nadeem Jimenes / Nadeem Jimenes Interpreting Provider: Nadeem Jimenes Abdomen/Pelvis CT 01/23/18 18:30 IMPRESSION: Suspected acute uncomplicated sigmoid colonic diverticulitis. Otherwise stable findings including innumerable bilobar hepatic metastases and 5.4 cm irregular infrarenal abdominal aortic aneurysm. See below. RECOMMENDATIONS: 5.4 cm AAA Recommend vascular consultation and follow-up every 6 months. Reference: J Vasc Surg 2009 May;50(4 Suppl):S2-49. D/ / Sharyn Cam Cha, MD / Sharyn Cam Cha, MD Interpreting Provider: Sharyn Cam Cha, MD Chest CT 01/23/18 18:30 IMPRESSION: Interval development of dense consolidation within both lower lobes most compatible with pneumonia. Also, there are innumerable mid and lower lung predominance centrilobular nodules likely infectious bronchiolitis. Anterior mid lung nodular density again identified, decreased in size. D/ / Sharyn Cam Cha, MD / Sharyn Cam Cha, MD Interpreting Provider: Sharyn Cam Cha, MD Head CT 01/23/18 18:30 IMPRESSION: No acute intracranial abnormality. D/ / Sathya Pang MD / Sathya Pang MD Interpreting Provider: Sathya Pang MD Date of admission: 01/18/18 19:28 Primary care physician: Yonatan Aleman, Consults: 01/19/18 02:42 Consult to Cardiology [CONS] Routine Comment: Consulting Provider: Cardiology Kriss Reason for Consult: NSTEMI Call Completed: Yes 01/19/18 07:45 Consult to Nephrology [CONS] Routine Consulting Provider: [facility] Spcdolly HAMMOND Reason for Consult: ESRD patient on HD Call Completed: Yes 01/19/18 09:09 Consult to Nurse Navigator [CONS] Routine Comment: 01/19/18 10:30 Consult to Dialysis [CONS] ONCE 01/20/18 09:12 Consult to Pulmonology [CONS] Routine Consulting Provider: Pulm [facility] Kriss Reason for Consult: ICU management; HYpotension and rapid afib Time Notified: 09:13 Call Completed: Yes 01/22/18 09:30 Consult to Dialysis [CONS] ONCE 01/22/18 09:44 Consult to Palliative Care [CONS] Routine Comment: Consulting Provider: Palliative Care Kriss Reason for Consult: metastatic lung cancer and multiple admissions Call Completed: No 01/22/18 14:43 Consult to Oncology [CONS] Routine Consulting Provider: [facility] Reason for Consult: small cell lung cancer, multiple comorbid conditions Time Notified: 14:40 Call Completed: Yes 01/24/18 11:45 Consult to Dialysis [CONS] ONCE - Hospital Course Hospital course: Ms. Orellana is a 67 year old female - Time Spent with Patient Total time spent providing and/or coordinating discharge services: Physical Examination Vital Signs: Vital Signs, Last 4 Hours Resp Pulse Ox 01/26/18 15:21 18 92 - Attending Attestation I examined this patient and my medical decision-making was reviewed with the Resident Physician. I agree with the documented findings, disposition and treatment plan as described except to the extent set forth below. Patient seen and examined. Labs, radiology, chart personally reviewed. 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 After optimal discussions with the family and power of assistant county attorney with the help of palliative care patient wants to go home and is a candidate for hospice care and then discharged home.
[2018-01-26] MEDS: Budesonide/Formoterol 80/4.5 MDI IH SCH (10:29)
--- NOTE | 2018-01-26 11:35 | Physician Discharge Referral ---
Home Health/Hosp Referral Info Transfer to: Hospice Provider in Charge Post Discharge: Medical Recruiter - Diagnosis (1) Goals of care, counseling/discussion Priority: Primary Status: Acute (2) Acute and chronic respiratory failure Priority: Primary Status: Acute (3) NSTEMI (non-ST elevated myocardial infarction) Status: Acute (4) CAD (coronary artery disease) Status: Chronic (5) ESRD (end stage renal disease) on dialysis Priority: Primary Status: Chronic (6) PAF (paroxysmal atrial fibrillation) Priority: Primary Status: Acute (7) Thrombocytopenia Priority: Primary Status: Chronic (8) COPD exacerbation Priority: Primary Status: Acute (9) Metastases to the liver Priority: Secondary Status: Chronic - Respiratory Orders Oxygen / L per min, Other (BiPAP FiO2 50% IPAP 12 EPAP 6 Rate 10) Smoking Cessation: Smoking cessation has been advised. For more information, call the [place] Tobacco Quit Line at 7-671-YPZV-NOW. - Diet/Nutrition Diet/Nutrition Orders: Mechanical Soft - Activity Activity Orders: Ambulate - Services Needed Following services are medically necessary services: Home Health Aide - Transfer Medications Prescriptions: Hyoscyamine SL [Levsin SL] 0.125 mg SL Q6H PRN #30 tab.subl PRN Reason: upper airway secretions LORazepam Oral Conc [Ativan Oral Conc] 1 mg PO Q4H PRN 7 Days #30 mls PRN Reason: Anxiety OXYCODONE Oral CONC [Oxycodone Oral Conc] 10 mg PO Q2H PRN 7 Days #30 oral.syg PRN Reason: pain/shortness of breath Home Medications: Atorvastatin [Lipitor] 40 mg PO HS 06/02/15 [History] Levothyroxine [Synthroid] 200 mcg PO QAM 06/02/15 [History] OxyCODONE Immed Rel [Roxicodone 10 MG] 10 mg PO Q6H PRN 06/02/15 [History] Docusate [Colace] 100 mg PO BID PRN 09/22/15 [History] B Complex with Vitamin C [[place]ee with C] 1 tab PO DAILY 02/22/16 [History] Sevelamer [Renvela] 1,600 mg PO TIDWM 08/29/16 [History] Fluticasone/Salmeterol [Advair Hfa 115-21 Mcg Inhaler] 2 puff IH BID 11/14/16 [ History] Ipratropium/Albuterol Neb [Duoneb] 3 ml IH QID PRN 11/14/16 [History] Renal Vitamin [Renal Caps Softgel] 1 mg PO DAILY 11/14/16 [History] Umeclidinium [place] [Incruse Ellipta] 62.5 mcg IH DAILY 11/12/17 [History] Albuterol Sulfate [Proair Hfa] 2 puff IH Q4-6H PRN 01/10/18 [History] Citalopram Hydrobromide [Celexa] 20 mg PO DAILY 01/10/18 [History] Folic Acid 1 mg PO DAILY 01/10/18 [History] Omeprazole [PriLOSEC] 40 mg PO DAILY 01/10/18 [History] Metoprolol [Lopressor] 25 mg PO BID #60 tablet 01/17/18 [Rx] hydrALAZINE [HydrALAZINE] 25 mg PO TID #90 tablet 01/17/18 [Rx] Hyoscyamine SL [Levsin SL] 0.125 mg SL Q6H PRN #30 tab.subl 01/26/18 [Rx] LORazepam Oral Conc [Ativan Oral Conc] 1 mg PO Q4H PRN 7 Days #30 mls 01/26/18 [ Rx] OXYCODONE Oral CONC [Oxycodone Oral Conc] 10 mg PO Q2H PRN 7 Days #30 oral.syg 01/26/18 [Rx] Allergies/Adverse Reactions: 3 Allergy/AdvReac Type Severity Reaction Status Date / Time ceftriaxone [From Rocephin] Allergy Hives Verified 01/09/18 21:52 levofloxacin [From Levaquin] Allergy Hives Verified 01/09/18 21:52 Certification: Further, I certify that my clinical findings support that this patient is homebound (i.e. absences from home require considerable and taxing effort and are for medical reasons or sikh services or infrequently or short duration when for other reasons) because: Homebound Reason: Patient requires assistance of a person or device to safely leave home, Leaving home requires considerable and taxing effort due to condition, Severity of cardiac or pulmonary status limits activity tolerance Attestation: My signature below is to certify that this patient is under my care and that I, or nurse practitioner, or a physician's funeral assistant working with me, has a face-to -face encounter with this patient.
== END 2018-01-26 16:30 | disposition hospice, home (50) | DRG 280 ==
LOC: 2NNU 19:28 → ICNU 01-20 09:04
PROVIDERS: ADMIT Family Medicine; ATTEND Family Medicine